=== PATIENT | female | born 1945 | race Two or more races ===

== ENCOUNTER 2023-09-10 13:08 | Emergency (ER) | payer MEDICARE, SELFPAY ==
[2023-09-10 13:23] VITALS: BP 178/65; PULSE 61; RESP 18; TEMP 36.9; O2SAT 96; BMI 28.3
--- NOTE | 2023-09-10 13:27 | XR_ITS ---
The [address] [address] Patient Name: BERNARD PONCE MRN: [id number] date: 1945 Sex: F Assigned Patient Location: ER Current Patient Location: ER Accession/Order Number: [id number] Exam Date: 09/10/2023 13:36 Report Date: 09/10/2023 13:53 At the request of: WILMA FERNANDES Procedure: XR chest 2V EXAM: XR chest 2V HISTORY: pain COMPARISON: None. TECHNIQUE: PA and lateral views of the chest. FINDINGS: The cardiomediastinal silhouette is normal. No focal consolidation is identified. There is no pneumothorax. No pleural effusion is noted. The osseous structures are intact. XR/XR chest 2V IMPRESSION: No acute cardiopulmonary process. Electronically authenticated by: ALYSSA BANKS Date: 09/10/2023 13:53
--- NOTE | 2023-09-10 13:27 | XR_ITS ---
The [address] [address] Patient Name: BERNARD PONCE MRN: [id number] date: 1945 Sex: F Assigned Patient Location: ER Current Patient Location: ER Accession/Order Number: [id number] Exam Date: 09/10/2023 13:36 Report Date: 09/10/2023 14:09 At the request of: WILMA FERNANDES Procedure: XR elbow LT min 3V EXAM: XR elbow LT min 3V HISTORY: pain COMPARISON: None. TECHNIQUE: AP, oblique, lateral radiographs of the elbow labeled left FINDINGS: Osteophyte at the ulna. Demineralization. No acute fracture or dislocation. No elbow joint effusion. XR/XR elbow LT min 3V IMPRESSION: 1. No acute osseous abnormality. 2. Demineralization and mild degenerative change. Electronically authenticated by: CECELIA OROZCO Date: 09/10/2023 14:09
[2023-09-10 14:48] VITALS: BP 169/65; PULSE 72; O2SAT 97
--- NOTE | 2023-09-10 15:23 | ED.GENADUL1 ---
Documented by User: Lee Ann Lynch 09/10/23 16:01 HPI - General Adult General Chief complaint: Extremity Injury, Upper Stated complaint: FALL/ UPPER EXTREMITY INJURY Time Seen by Provider: 09/10/23 15:23 Source: patient Mode of arrival: walk-in Limitations: no limitations History of Present Illness HPI narrative: 77 year old female presents to the ED for pain to her left elbow and left anterior lower chest s/p fall yesterday. Reports falling when going down steps. She fell down the last step. She did hit her head. Denies LOC, vision changes, weakness, dizziness, N/V. Denies SOB, abd pain. Denies pain to her neck and back. Rates her pain 4/10 at this time. Her elbow discomfort is with palpation. Her chest wall discomfort is with certain movements and deep inspiration. She took Tylenol yesterday for her discomfort. She does not want anything for pain here today. Related Data Allergies Allergy/AdvReac Type Severity Reaction Status Date / Time ampicillin AdvReac Intermediate Verified 09/10/23 13:23 Review of Systems ROS Constitutional Denies: fever or chills Eyes Denies: change in vision, blurry vision or light sensitivity Ears, nose, mouth, and throat Denies: neck pain Cardiovascular Denies: chest pain Respiratory Denies: shortness of breath Gastrointestinal Denies: abdominal pain, nausea or vomiting Musculoskeletal Reports: extremity pain; Denies: back pain or neck pain Integumentary/Breast Denies: rash or changes in skin color Neurological Reports: headache; Denies: numbness in extremities, weakness in extremities, lack of coordination, dizziness, confusion or slurred speech PFSH PFSH Social History Smoking status: Never smoker Exam Constitutional Vital Signs, click to edit/add: Last Vital Signs Temp 98.5 F 09/10/23 13:23 Pulse 72 09/10/23 14:48 Resp 18 09/10/23 13:23 BP 169/65 H 09/10/23 14:48 Pulse Ox 97 09/10/23 14:48 Common normals: no apparent distress and oriented x3 General appearance: cooperative [facility] Common normals: normocephalic and head/scalp atraumatic (Mild tenderness to left scalp. No palpable hematoma. No bony instability. ) Face and sinus: normal facial exam Nose: external nose normal External ear: external ears normal Eye Common normals: PERRL, EOMs intact bilaterally, conjunctivae normal and no scleral icterus Neck & C-Spine Common normals: supple General: normal visual inspection and trachea midline Cervical spine: cervical ROM normal; no pain with cervical ROM, no cervical spine tenderness and no paracervical muscle tenderness Chest Common normals: inspection of chest normal (No bruising, abrasions, erythema, or wounds noted to left chest or abdomen.) and palpation of chest normal (Tenderness to left lower anterior chest wall. ) Respiratory Common normals: normal respiratory effort Effort & inspection: able to speak in complete sentences and symmetric chest movement Auscultation: clear to auscultation bilaterally Cardio Common normals: regular rate and regular rhythm Peripheral pulses: radial pulses present Back & Pelvis Thoracic spine/upper back: normal to inspection; no thoracic spinal tenderness and no paraspinal muscle tenderness Lumbar spine/lower back: normal to inspection; no lumbar spinal tenderness and no paraspinal muscle tenderness Extremity Left upper extremity: shoulder joint Left shoulder joint: ROM (Full ROM) and elbow joint Left elbow: inspection (Minimal swelling posterior elbow. No deformity, erythema, bruising, wound.), palpation (Tenderness to posterior elbow with light touch.) and ROM (Full ROM to left elbow, wrist, hand.) Neuro Common normals: oriented x3 and CN's II-XII intact bilaterally Sensorium/orientation: awake and alert Speech: speech normal Gait (neuro): normal gait Course Vital Signs Vital signs: Vital Signs Temperature 98.5 F 09/10/23 13:23 Pulse Rate 61 09/10/23 13:23 Respiratory Rate 18 09/10/23 13:23 Blood Pressure 178/65 H 09/10/23 13:23 Pulse Oximetry 96 09/10/23 13:23 Temperature 98.5 F 09/10/23 13:23 Pulse Rate 72 09/10/23 14:48 Respiratory Rate 18 09/10/23 13:23 Blood Pressure 169/65 H 09/10/23 14:48 Pulse Oximetry 97 09/10/23 14:48 Medical Decision Making MDM Narrative Medical decision making narrative: Chest and left elbow x-rays were negative for acute findings. Findings were discussed with the patient. She prefers to take Tylenol for pain. She declined a muscle relaxer and stronger pain medication. An wayne wrap was applied to the left elbow. The application was checked and was appropriate; the LUE remained NVI. Follow up with pcp for a recheck, further evaluation and treatment. Return precautions were discussed. Medical Records Medical records reviewed: Yes I reviewed the patient's medical records Imaging Data Chest x-ray: Attestation: I have reviewed the pertinent imaging results. Radiologist's impression: At the request of: WILMA REYES Procedure: XR chest 2V EXAM: XR chest 2V HISTORY: pain COMPARISON: None. TECHNIQUE: PA and lateral views of the chest. FINDINGS: The cardiomediastinal silhouette is normal. No focal consolidation is identified. There is no pneumothorax. No pleural effusion is noted. The osseous structures are intact. XR/XR chest 2V IMPRESSION: No acute cardiopulmonary process. Electronically authenticated by: ALYSSA BANKS Date: 09/10/2023 13:53 XR left elbow: Attestation: I have reviewed the pertinent imaging results. Radiologist's impression: At the request of: WILMA REYES Procedure: XR elbow LT min 3V EXAM: XR elbow LT min 3V HISTORY: pain COMPARISON: None. TECHNIQUE: AP, oblique, lateral radiographs of the elbow labeled left FINDINGS: Osteophyte at the ulna. Demineralization. No acute fracture or dislocation. No elbow joint effusion. XR/XR elbow LT min 3V IMPRESSION: 1. No acute osseous abnormality. 2. Demineralization and mild degenerative change. Electronically authenticated by: CECELIA OROZCO Date: 09/10/2023 14:09 Discharge Plan Discharge Chief Complaint: Extremity Injury, Upper Clinical Impression: Chest wall pain, Head injury, Contusion of elbow, left Patient Disposition: Home, Self-Care Time of Disposition Decision: 15:35 Condition: Good Mode of Transportation: Private Vehicle Instructions: Head Injury (DC), Contusion in Adults (ED), Chest Wall Pain (ED) Additional Instructions: Return to the ER for new or worsening symptoms. Stand Alone Forms: Portal Instructions Referrals: Pamela Moore NP [Primary Care Provider] - As soon as possible Discharge Date/Time: 09/10/23 15:36 Documented by User: Wilma Reyes MD 09/10/23 19:34 HPI - General Adult General Chief complaint: Extremity Injury, Upper Stated complaint: FALL/ UPPER EXTREMITY INJURY Time Seen by Provider: 09/10/23 15:23 Related Data Allergies Allergy/AdvReac Type Severity Reaction Status Date / Time ampicillin AdvReac Intermediate Verified 09/10/23 13:23 PFSH PFSH Social History Smoking status: Never smoker Exam Constitutional Vital Signs, click to edit/add: Last Vital Signs Temp 98.5 F 09/10/23 13:23 Pulse 72 09/10/23 14:48 Resp 18 09/10/23 13:23 BP 169/65 H 09/10/23 14:48 Pulse Ox 97 09/10/23 14:48 Course Vital Signs Vital signs: Vital Signs Temperature 98.5 F 09/10/23 13:23 Pulse Rate 61 09/10/23 13:23 Respiratory Rate 18 09/10/23 13:23 Blood Pressure 178/65 H 09/10/23 13:23 Pulse Oximetry 96 09/10/23 13:23 Temperature 98.5 F 09/10/23 13:23 Pulse Rate 72 09/10/23 14:48 Respiratory Rate 18 09/10/23 13:23 Blood Pressure 169/65 H 09/10/23 14:48 Pulse Oximetry 97 09/10/23 14:48 Medical Decision Making MDM Narrative Medical decision making narrative: Chest and left elbow x-rays were negative for acute findings. Findings were discussed with the patient. She prefers to take Tylenol for pain. She declined a muscle relaxer and stronger pain medication. An wayne wrap was applied to the left elbow. The application was checked and was appropriate; the LUE remained NVI. Follow up with pcp for a recheck, further evaluation and treatment. Return precautions were discussed. I, Dr Reyes, have reviewed the above progress note and course of action in the ER; agree with the above. I have personally seen and evaluated this patient, gone over history and physical, and discussed disposition and treatment plan with the patient. Discharge Plan Discharge Chief Complaint: Extremity Injury, Upper Clinical Impression: Chest wall pain, Head injury, Contusion of elbow, left Patient Disposition: Home, Self-Care Time of Disposition Decision: :35 Condition: Good Mode of Transportation: Private Vehicle Instructions: Head Injury (DC), Contusion in Adults (ED), Chest Wall Pain (ED) Additional Instructions: Return to the ER for new or worsening symptoms. Stand Alone Forms: Portal Instructions Referrals: Pamela Moore NP [Primary Care Provider] - As soon as possible Discharge Date/Time: 09/10/23 15:36
== END 2023-09-10 15:36 | disposition home or self-care (01) ==
PROVIDERS: Emergency Provider Emergency Medicine; PCP Nurse Practitioner
DX: S50.02XA Contusion of left elbow, initial encounter (principal); R07.89 Other chest pain; S09.90XA Unspecified injury of head, initial encounter; W10.9XXA Fall (on) (from) unspecified stairs and steps, initial encounter
CPT/HCPCS: 71046; 73080; 99284

== ENCOUNTER 2023-09-17 11:08 | Outpatient (OUT) | payer MEDICARE, SELFPAY ==
--- NOTE | 2023-09-17 11:20 | XR_ITS ---
The [address] [address] Patient Name: BERNARD PONCE MRN: [id number] date: 1945 Sex: F Assigned Patient Location: [facility] Current Patient Location: Accession/Order Number: [id number] Exam Date: 09/17/2023 11:30 Report Date: 09/19/2023 06:34 At the request of: LOS RICE Procedure: XR ribs LT 2V EXAMINATION: XR ribs LT 2V HISTORY: rib pain on left side R07.81 ; fell 09/09/2023 COMPARISON: XR chest 09/10/2023 FINDINGS: RIBS: Normal. No significant arthropathy or acute abnormality. LUNGS: No appreciable pneumothorax or pleural thickening. OTHER: Negative. XR/XR ribs LT 2V IMPRESSION: 1. No appreciable rib fracture. 2. No acute cardiopulmonary process. Electronically authenticated by: BRAYDEN LARA Date: 09/19/2023 06:34
== END 2023-09-17 11:09 | disposition home or self-care (01) ==
LOC: RAD 11:11
PROVIDERS: PCP Nurse Practitioner; Visit Provider Nurse Practitioner
DX: R07.81 Pleurodynia (principal)
CPT/HCPCS: 71100

== ENCOUNTER 2023-11-07 09:40 | Outpatient (OUT) | payer MEDICARE, SELFPAY ==
--- OUTSIDE RECORDS SUMMARY | 2023-11-07 09:48 | XMS_ITS | CCD ---
Author Name Unknown Address [address] [place] [address] Organization [facility] Care Team Providers Care Group Leader Wafer Polishing Name Role Phone AICHHOLZ, AIR DRIER PAMELA Admitting Unavailable AICHHOLZ, AIR DRIER PAMELA Attending Unavailable AICHHOLZ, AIR DRIER PAMELA Primary Care Unavailable AICHHOLZ, AIR DRIER PAMELA Consulting Unavailable AICHHOLZ, AIR DRIER PAMELA Admitting Unavailable AICHHOLZ, AIR DRIER PAMELA Attending Unavailable AICHHOLZ, AIR DRIER PAMELA Primary Care Unavailable AICHHOLZ, AIR DRIER PAMELA Consulting Unavailable AICHHOLZ, AIR DRIER PAMELA Admitting Unavailable AICHHOLZ, AIR DRIER PAMELA Attending Unavailable AICHHOLZ, AIR DRIER PAMELA Primary Care Unavailable AICHHOLZ, AIR DRIER PAMELA Consulting Unavailable AICHHOLZ, AIR DRIER PAMELA Admitting Unavailable AICHHOLZ, AIR DRIER PAMELA Attending Unavailable AICHHOLZ, AIR DRIER PAMELA Primary Care Unavailable AICHHOLZ, AIR DRIER PAMELA Consulting Unavailable AICHHOLZ, AIR DRIER PAMELA Admitting Unavailable AICHHOLZ, AIR DRIER PAMELA Attending Unavailable AICHHOLZ, AIR DRIER PAMELA Primary Care Unavailable AICHHOLZ, AIR DRIER PAMELA Consulting Unavailable AICHHOLZ, AIR DRIER PAMELA Admitting Unavailable AICHHOLZ, AIR DRIER PAMELA Attending Unavailable AICHHOLZ, AIR DRIER PAMELA Primary Care Unavailable AICHHOLZ, AIR DRIER PAMELA Consulting Unavailable AICHHOLZ, AIR DRIER PAMELA Admitting Unavailable AICHHOLZ, AIR DRIER PAMELA Attending Unavailable AICHHOLZ, AIR DRIER PAMELA Primary Care Unavailable AICHHOLZ, AIR DRIER PAMELA Consulting Unavailable JORGE GONCALVES Primary Care Unavailable Tab Ibarra Admitting Unavail able Tab Ibarra Attending Unavail Jorge Quijano MD Primary Care Provider AICHHOLZ, PAMELA Attending Unavailable PAMELA MOORE Attending Unavailable PAMELA MOORE Referring Unavailable Allergies Allergy Classification Reported Allergen(s) Allergy Type Date of Onset Reaction(s) Facility (1 source) Ampicillin Drug Allergy [facility] (3 sources) A[facility] Drug All[facility] Medications Current Medications Medication Drug Class(es) Dates Sig (Normalized) Sig (Original) [id number] 200 actuat albuterol 0.09 mg/actuat metered dose inhaler (3 sources) beta2-Adrenergic Agonist take 2 puff(s) by inhalation every four hours for wheezing albuterol HFA 90 mcg/act inhaler Inhale 2 puffs every 4 (four) hours if needed for wheezing or shortness of breath 0 Active alendronic acid 70 mg oral tablet (3 sources) Bisphosphonate alendronate (Fosamax) 70 MG tablet Take 70 mg by mouth every 7 (seven) days. 0 Active atorvastatin 20 mg oral tablet (3 sources) HMG-CoA Reductase Inhibitor take 1 tablet by mouth in the morning atorvastatin (Lipitor) 20 MG tablet Take 20 mg by mouth in the morning. 0 Active benzonatate 100 mg oral capsule (3 sources) Non-narcotic Antitussive take 1 capsule by mouth three times daily as needed benzonatate (Tessalon) 100 MG capsule Take 100 mg by mouth 3 (three) times a day as needed. 0 Active cholecalciferol 0.125 mg oral capsule (3 sources) Vitamin D cholecalciferol (Vitamin D-3) 125 MCG (5000 UT) capsule Vitamin D3 0 Active docosahexaenoic acid 120 mg / eicosapentaenoic acid 180 mg oral capsule (3 sources) take 1 capsule by mouth once daily omega-3 (fish oil) 1000 MG capsule Take 1 capsule by mouth 1 (one) time each day at the same time. 0 Active fluticasone propionate 0.05 mg/actuat metered dose nasal spray (3 sources) Corticosteroid Start: 05-10-2019 take 1 spray(s) nasal route in the morning fluticasone (Flonase) 50 MCG/ACT nasal spray Administer 1 spray into each nostril in the morning. 0 05/10/2019 Active furosemide 20 mg oral tablet (3 sources) Loop Diuretic furosemide (Lasi x) 20 MG tablet Take 20 mg by mouth if needed (prn). 0 Active levothyroxine sodium 0.05 mg oral tablet (3 sources) l-Thyroxine take 1 tablet by mouth before mealtime levothyroxine (Synthroid) 50 MCG tablet Take 50 mcg by mouth in the morning. Take before meals. 0 Active loratadine 10 mg oral tablet (3 sources) loratadine (Claritin) 10 MG tablet Take 10 mg by mouth if needed for allergies 0 Active meclizine hydrochloride 25 mg oral tablet (3 sources) Antiemetic take 1 tablet by mouth four times daily as needed for dizziness meclizine (Antivert) 25 MG tablet Take 1 tablet by mouth 4 (four) times a day as needed for dizziness 0 Active Multiple Vitamin (MULTIVITAMIN ADULT PO) (3 sources) Multiple Vitamin (MULTIVITAMIN ADULT PO) Multivitamin 0 Active papaya allergenic extract (3 sources) Non-Standardized Food Allergenic Extract Papaya 100 MG tablet Papaya 0 Active Problems Active Problems Problem Classification Problem Date Documented Date Episodic/Chronic Diabetes mellitus without complication (6 sources) Prediabetes; Translations: [Prediabetes] Onset: 11-13-2022 11-05-2023 Episodic Disorders of lipid metabolism (10 sources) Hyperlipidemia, unspecified; Translations: [Hyperlipidemia] Onset: 05-08-2022 Chronic Diverticulosis and diverticulitis (3 sources) Diverticulum of large intestine without hemorrhage; Translations: [Diverticulosis of large intestine without perforation or abscess without bleeding] Onset: 11-05-2023 11-05-2023 Chronic Esophageal disorders (8 sources) Laryngopharyngeal reflux; Translations: [Gastro-esophageal reflux disease without esophagitis] Onset: 01-31-2023 01-31-2023 Chronic Nutritional deficiencies (6 sources) Vitamin D deficiency, unspecified; Translations: [Vitamin D deficiency] Onset: 11-13-2022 11-05-2023 Chronic Osteoarthritis (9 sources) Arthritis of right knee; Translations: [Unilateral primary osteoarthritis, right knee] Onset: 01-31-2023 01-31-2023 Chronic Osteoporosis (5 sources) Osteoporosis; Translations: [Age-related osteoporosis without current pathological fracture] Onset: 11-05-2023 11-05-2023 Chronic Other connective tissue disease (3 sources) Triggering of digit; Translations: [Trigger finger, right ring finger] Onset: 11-05-2023 4 Episodic Other ear and sense organ disorders (3 sources) Chronic non-infective otitis externa; Translations: [Other otitis externa, bilateral] Onset: 01-31-2023 01-31-2023 Chronic Other ear and sense organ disorders (3 sources) Hearing loss; Translations: [Unspecified hearing loss, unspecified ear] Onset: 01-31-2023 01-31-2023 Chronic Other ear and sense organ disorders (3 sources) Sensorineural hearing loss, bilateral; Translations: [Sensorineural hearing loss, bilateral] Onset: 01-31-2023 01-31-2023 Chronic Other lower respiratory disease (3 sources) Cough; Translations: [Cough in adult] Onset: 11-05-2023 11-05-2023 Episodic Other non-traumatic joint disorders (4 sources) Chronic pain of left upper limb; Translations: [Pain in left shoulder] Onset: 11-05-2023 11-05-2023 Episodic Other nutritional; endocrine; and metabolic disorders (1 source) Obesity; Translations: [Obesity, unspecified] Onset: 09-17-2023 09-17-2023 Chronic Other nutritional; endocrine; and metabolic disorders (4 sources) Body mass index 30+ - obesity; Translations: [Body mass index (BMI) 30.0-30.9, adult] Onset: 11-05-2023 11-05-2023 Chronic Other screening for suspected conditions (not mental disorders or infectious disease) (12 sources) Other specified abnormal findings of blood chemistry; Translations: [Other abnormal blood chemistry] Onset: 02-13-2022 Episodic Other upper respiratory disease (3 sources) Chronic laryngitis; Translations: [Chronic laryngitis] Onset: 01-31-2023 01-31-2023 Chronic Other upper respiratory disease (3 sources) Allergic rhinitis; Translations: [Allergic rhinitis, unspecified] Onset: 11-05-2023 11-05-2023 Chronic Residual codes; unclassified (3 sources) Insomnia; Translations: [Insomnia, unspecified] Onset: 11-05-2023 11-05-2023 Episodic Spondylosis; intervertebral disc disorders; other back problems (3 sources) Degeneration of cervical intervertebral disc; Translations: [Other cervical disc degeneration, unspecified cervical region] Onset: 11-05-2023 11-05-2023 Chronic Thyroid disorders (9 sources) Hypothyroidism, unspecified; Translations: [Acquired hypothyroidism] Onset: 12-16-2022 Chronic Past or Other Problems Problem Classification Problem Date Documented Da te Episodic/Chronic Immunizations and screening for infectious disease (1 source) Encounter for screening for other viral diseases; Translations: [ENC SCREENING FOR OTH VIRAL DZ] Onset: 05-09-2022 Episodic Otitis media and related conditions (3 sources) Dysfunction of left eustachian tube; Translations: [Unspecified Eustachian tube disorder, left ear] Onset: 01-31-2023 01-31-2023 Episodic Results Test Name Value Interpretation Reference Range Facil ity MG MAMM SCREEN 3D DAVID CADon 01-03-2023 MG MAMM SCREEN 3D DAVID CAD Patient: BERNARD PONCE Exam Date: 01/03/2023 : 1945 Gender:F Ordering : [facility] Admission #: [id number] Family : Order #: [id number] CLICK HERE TO VIEW EXAM RADIOLOGY REPORT PROCEDURE: MAMMOGRAM SCREENING 3D BILATERAL CAD COMPARISON: MG MAMM SCREEN DAVID W CAD, 09/25/2020. MG MAMM SCREEN 3D DAVID CAD, 09/27/2021. INDICATIONS: Screening mammography Calculator Name NCI Breast Cancer Risk Assessment Tool 5 Year Breast Cancer Risk 1.00% Lifetime Breast Cancer Risk 2.30% Personal Breast Cancer No Personal Ovarian Cancer No Treatments None Family Cancers Aunt-maternal with breast cancer at age 60. LOCATION: [facility] BREAST COMPOSITION: Scattered areas fibroglandular density. FINDINGS: DIAGNOSTIC CATEGORY 1--NEGATIVE. NO CHANGE FROM COMPARISON ASSESSMENT. Scattered benign-appearing calcifications are present. Scattered benign-appearing lymph nodes are present. RIGHT BREAST: No significant suspicious finding. LEFT BREAST: No significant suspicious finding. RECOMMENDATIONS: ROUTINE MAMMOGRAM AND CLINICAL EVALUATION IN 12 MONTHS. PLEASE NOTE: A NORMAL MAMMOGRAM DOES NOT EXCLUDE THE POSSIBILITY OF BREAST CANCER. A CLINICALLY SUSPICIOUS PALPABLE LUMP SHOULD BE BIOPSIED. Dictated by: Jermaine Rosenberg MD on 01/06/2023 at 09:55 Approved by: Jermaine Rosenberg MD on 01/06/2023 at 09:57 Normal [facility] FREE T3on 12-16-2022 FREE T3 2.70 pg/mlL Normal 2.18-3.98 [facility] Comment on above: Performed By: #### T SH, FT3 #### [facility] [address] [place] [address] Dr. Glenny Sneed FREE T4on 12-16-2022 Free T4 [Mass/Vol] 0.92 ng/dL Normal 0.76-1.46 [facility] Comment on above: Performed By: #### F T4 #### [facility] [address] [place] [address] Dr. Glenny Sneed TSHon 12-16-2022 TSH 3.444 uIU/mL Normal 0.358-3.740 [facility] Comment on above: Performed By: #### T SH, FT3 #### [facility] [address] [place] [address] Dr. Glenny Sneed CBC AUTO DIFFon 11-07-2022 BASO # 0.1 103/ul Normal 0.0-0.1 [facility] Comment on above: Performed By: #### T SH, FT3 #### [facility] [address] [place] [address] Dr. Glenny Sneed Basophils/100 WBC (Bld) 1.2 % Normal 0.2-2.0 [facility] Comment on above: Performed By: #### T SH, FT3 #### [facility] [address] [place] [address] Dr. Glenny Sneed EO # 0.2 103/ul Normal 0.0-0.7 [facility] Comment on above: Performed By: #### T SH, FT3 #### [facility] [address] [place] [address] Dr. Glenny Sneed Eosinophils/100 WBC (Bld) 2.8 % Normal 0.9-7.0 [facility] Comment on above: Performed By: #### T SH, FT3 #### [facility] [address] [place] [address] Dr. Glenny Sneed Erythrocyte distribution width (RBC) [Ratio] 13.5 % Normal 11.0-15.0 [facility] Comment on above: Performed By: #### T SH, FT3 #### [facility] [address] [place] [address] Dr. Glenny Sneed Hematocrit (Bld) [Volume fraction] 40.3 % Normal 36.0-48.0 [facility] Comment on above: Performed By: #### T SH, FT3 #### [facility] [address] [place] [address] Dr. Glenny Sneed Hemoglobin (Bld) [Mass/Vol] 12.9 g/dL Normal 12.0-16.0 [facility] Comment on above: Performed By: #### T SH, FT3 #### [facility] [address] [place] [address] Dr. Glenny Sneed IG # 0.01 10e3/ul Normal 0.00-0.03 [facility] Comment on above: Performed By: #### T SH, FT3 #### [facility] [address] [place] [address] Dr. Glenny Sneed IG % 0.2 % Normal 0.0-0.5 [facility] Comment on above: Performed By: #### T , FT3 #### [facility] [address] [place] [address] Dr. Glenny Sneed LYMPH # 2.5 103/ul Normal 1.2-3.8 [facility] Comment on above: Performed By: #### T , FT3 #### [facility] [address] [place] [address] Dr. Glenny Sneed Lymphocytes/100 WBC (Bld) 38.2 % Normal 20.5-60.0 [facility] Comment on above: Performed By: #### T , FT3 #### [facility] [address] [place] [address] Dr. Glenny Sneed MANUAL DIFF REQ NO Normal [facility] Comment on above: Performed By: #### T , FT3 #### [facility] [address] [place] [address] Dr. Glenny Sneed MCH (RBC) [Entitic mass] 27.2 pg Normal 26.7-34.0 [facility] Comment on above: Performed By: #### T SH, FT3 #### [facility] [address] [place] [address] Dr. Glenny Sneed MCHC (RBC) [Mass/Vol] 32.0 g/dL Normal 29.9-35.2 [facility] Comment on above: Performed By: #### T SH, FT3 #### [facility] [address] [place] [address] Dr. Glenny Sneed MCV (RBC) [Entitic vol] 84.8 fL Normal 81.0-99.0 [facility] Comment on above: Performed By: #### T SH, FT3 #### [facility] [address] [place] [address] Dr. Glenny Sneed MONO # 0.6 103/ul Normal 0.3-0.8 [facility] Comment on above: Performed By: #### T SH, FT3 #### [facility] [address] [place] [address] Dr. Glenny Sneed Monocytes/100 WBC (Bld) 8.5 % Normal 1.7-12.0 [facility] Comment on above: Performed By: #### T SH, FT3 #### [facility] [address] [place] [address] Dr. Glenny Sneed NEUT # 3.2 103/ul Normal 1.4-6.5 [facility] Comment on above: Performed By: #### T SH, FT3 #### [facility] [address] [place] [address] Dr. Glenny Sneed Neutrophils/100 WBC (Bld) 49.1 % Normal 43.0-75.0 [facility] Comment on above: Performed By: #### T SH, FT3 #### [facility] [address] [place] [address] Dr. Glenny Sneed Platelet mean volume (Bld) [Entitic vol] 10.2 fL Normal 9.5-13.5 [facility] Comment on above: Performed By: #### T SH, FT3 #### [facility] [address] [place] [address] Dr. Glenny Sneed PLT 350 103/ul Normal 150-450 [facility] Comment on above: Performed By: #### T SH, FT3 #### [facility] [address] [place] [address] Dr. Glenny Sneed RBC 4.75 106/ul Normal 4.20-5.40 [facility] Comment on above: Performed By: #### T SH, FT3 #### [facility] [address] [place] [address] Dr. Glenny Sneed WBC 6.5 103/ul Normal 4.0-11.0 [facility] Comment on above: Performed By: #### T SH, FT3 #### [facility] [address] [place] [address] Dr. Glenny Sneed FREE T4on 11-07-2022 Free T4 [Mass/Vol] 1.15 ng/dL Normal 0.76-1.46 [facility] Comment on above: Performed By: #### F T4, VITAD #### [facility] [address] [place] [address] Dr. Glenny Sneed GLYCOHEMOGLOBIN A1Con 2022 ADA RECOMMENDATION SEE BELOW Normal [facility] Comment on above: Result Comment: ADA RECOMMENDED LIMIT 4.0 - 6.0 ADA THERAPEUTIC TARGET < 7.0 ACTION SUGGESTED > 7.0 Performed By: #### A 1C #### [facility] [address] [place] [address] Dr. Glenny Sneed Glucose [Mass/Vol] 120 mg/dL Normal [facility] Comment on above: Performed By: #### A 1C #### [facility] [address] [place] [address] Dr. Glenny Sneed HbA1c (Bld) [Mass fraction] 5.8 % Normal 4.5-6.2 [facility] Comment on above: Performed By: #### A 1C #### [facility] [address] [place] [address] Dr. Glenny Sneed LIPID PROFILEon 11-07-2022 CHOL-HDL RATIO NORM SEE BELOW Normal [facility] Comment on above: Result Comment: 3.3 - 4.4 LOW RISK 4.4 - 7.1 AVERAGE RISK 7.1 - 11.0 MODERATE RISK >11.0 HIGH RISK Performed By: #### L IPID, CMP, TSH #### [facility] [address] [address] [address] Glenny Sneed Cholesterol [Mass/Vol] 185 mg/dL Normal <=200 [facility] Comment on above: Performed By: #### L IPID, CMP, TSH #### [facility] [address] [address] [address] Glenny Sneed Cholesterol in HDL [Mass/Vol] 63 mg/dL Critically high 40-60 [facility] Comment on above: Performed By: #### L IPID, CMP, TSH #### [facility] [address] [place] [address] Dr. Glenny Sneed Cholesterol in LDL [Mass/Vol] 87.6 mg/dL Normal [facility] Comment on above: Performed By: #### L IPID, CMP, TSH #### [facility] [address] [place] [address] Dr. Glenny Sneed Cholesterol.total/Cho lesterol in HDL [Mass ratio] 2.9 {ratio} Normal [facility] Comment on above: Performed By: #### L IPID, CMP, TSH #### [facility] [address] [place] [address] Dr. Glenny Sneed HDL NORMAL > or = 60 mg/dl - LOW CARDIOVASCULAR RISK <40 mg/dl - HIGH CARDIOVASCULAR RISK Normal [facility] Comment on above: Performed By: #### L IPID, CMP, TSH #### [facility] [address] [place] [address] Dr. Glenny Sneed LDL CALC NORMAL SEE BELOW Normal [facility] Comment on above: Result Comment: <100 mg/dl OPTIMAL 100 - 129 mg/dl NEAR OR ABOVE OPTIMAL 130 - 159 mg/dl BORDERLINE HIGH 160 - 189 mg/dl HIGH >190 mg/dl VERY HIGH Performed By: #### L IPID, CMP, TSH #### [facility] [address] [place] [address] Dr. Glenny Sneed Triglyceride [Mass/Vol] 172 mg/dL Critically high <=150 [facility] Comment on above: Performed By: #### L IPID, CMP, TSH #### [facility] [address] [address] [address] Glenny Sneed VLDL CALC 34.4 mg/dL Normal [facility] Comment on above: Performed By: #### L IPID, CMP, TSH #### [facility] [address] [place] [address] Dr. Glenny Sneed PROF 14(COMP METB)on 023 Albumin [Mass/Vol] 4.1 g/dL Normal 3.4-5.0 [facility] Comment on above: Performed By: #### L IPID, CMP, TSH #### [facility] [address] [place] [address] Dr. Glenny Sneed Albumin/Globulin [Mass ratio] 1.0 {ratio} Normal [facility] Comment on above: Performed By: #### L IPID, CMP, TSH #### [facility] [address] [place] [address] Dr. Glenny Sneed ALP [Catalytic activity/Vol] 77 U/L Normal 46-116 [facility] Comment on above: Performed By: #### L IPID, CMP, TSH #### [facility] [address] [place] [address] Dr. Glenny Sneed ALT [Catalytic activity/Vol] 33 U/L Normal 14-59 [facility] Comment on above: Performed By: #### L IPID, CMP, TSH #### [facility] [address] [address] [address] Glenny Sneed Anion gap [Moles/Vol] 13.1 mmol/L Normal [facility] Comment on above: Performed By: #### L IPID, CMP, TSH #### [facility] [address] [place] [address] Dr. Glenny Sneed AST [Catalytic activity/Vol] 22 U/L Normal 15-37 [facility] Comment on above: Performed By: #### L IPID, CMP, TSH #### [facility] [address] [place] [address] Dr. Glenny Sneed Bilirubin [Mass/Vol] 0.7 mg/dL Normal 0.2-1.0 [facility] Comment on above: Performed By: #### L IPID, CMP, TSH #### [facility] [address] [place] [address] Dr. Glenny Sneed Calcium [Mass/Vol] 10.0 mg/dL Normal 8.5-10.1 [facility] Comment on above: Performed By: #### L IPID, CMP, TSH #### [facility] [address] [address] [address] Glenny Sneed Chloride [Moles/Vol] 102 mmol/L Normal 98-107 [facility] Comment on above: Performed By: #### L IPID, CMP, TSH #### [facility] [address] [place] [address] Dr. Glenny Sneed CO2 [Moles/Vol] 29.9 mmol/L Normal 21.0-32.0 [facility] Comment on above: Performed By: #### L IPID, CMP, TSH #### [facility] [address] [place] [address] Dr. Glenny Sneed Creatinine [Mass/Vol] 0.66 mg/dL Normal 0.55-1.02 [facility] Comment on above: Performed By: #### L IPID CMP, TSH #### [facility] [address] [place] [address] Dr. Glenny Sneed EGFR-AF ICELANDIC >60 Normal >=60 [facility] Comment on above: Performed By: #### L IPID, CMP, TSH #### [facility] [address] [place] [address] Dr. Glenny Sneed EGFR-NON AF ICELANDIC >60 Normal >=60 [facility] Comment on above: Performed By: #### L IPID, CMP, TSH #### [facility] [address] [place] [address] Dr. Glenny Sneed Globulin (S) [Mass/Vol] 4.0 g/dL Normal [facility] Comment on above: Performed By: #### L IPID, CMP, TSH #### [facility] [address] [address] [address] Glenny Sneed Glucose [Mass/Vol] 106 mg/dL Normal 74-106 [facility] Comment on above: Performed By: #### L IPID, CMP, TSH #### [facility] [address] [place] [address] Dr. Glenny Sneed Potassium [Moles/Vol] 4.0 mmol/L Normal 3.5-5.1 [facility] Comment on above: Performed By: #### L IPID, CMP, TSH #### [facility] [address] [place] [address] Dr. Glenny Sneed Protein [Mass/Vol] 8.1 g/dL Normal 6.4-8.2 [facility] Comment on above: Performed By: #### L IPID, CMP, TSH #### [facility] [address] [place] [address] Dr. Glenny Sneed Sodium [Moles/Vol] 141 mmol/L Normal 136-145 [facility] Comment on above: Performed By: #### L IPID, CMP, TSH #### [facility] [address] [place] [address] Dr. Glenny Sneed Urea nitrogen [Mass/Vol] 9.0 mg/dL Normal 7.0-18.0 [facility] Comment on above: Performed By: #### L IPID, CMP, TSH #### [facility] [address] [place] [address] Dr. Glenny Sneed Urea nitrogen/Creatinine [Mass ratio] 13.6 mg/mg Normal [facility] Comment on above: Performed By: #### L IPID, CMP, TSH #### [facility] [address] [place] [address] Dr. Glenny Sneed TSHon 11-07-2022 TSH 2.008 uIU/mL Normal 0.358-3.740 [facility] Comment on above: Performed By: #### L IPID, CMP, TSH #### [facility] [address] [place] [address] Dr. Glenny Sneed UA RANDOM W/MICROSCOPICon 02 -16-2023 BACTERIA NONE SEEN Normal NONE SEEN [facility] Comment on above: Performed By: #### U AMIC #### [facility] [address] [address] [address] Glenny Sneed Bilirubin Ql (U) Negative Normal NEGATIVE The [facility] Comment on above: Performed By: #### U AMIC #### [facility] [address] [place] [address] Dr. Glenny Sneed CAST NONE SEEN Normal NONE SEEN [facility] Comment on above: Performed By: #### U AMIC #### [facility] [address] [address] [address] Glenny Sneed Clarity (U) CLEAR Normal CLEAR [facility] Comment on above: Performed By: #### U AMIC #### [facility] [address] [place] [address] Dr. Glenny Sneed Color (U) LT. YELLOW Normal YELLOW [facility] Comment on above: Performed By: #### U AMIC #### [facility] [address] [place] [address] Dr. Glenny Sneed Crystals LM Nom (Urine sed) NONE SEEN Normal NONE SEEN [facility] Comment on above: Performed By: #### U AMIC #### [facility] [address] [place] [address] Dr. Glenny Sneed Epithelial cells LM Ql (Urine sed) NONE SEEN Normal NONE SEEN /RARE [facility] Comment on above: Performed By: #### U AMIC #### [facility] [address] [place] [address] Dr. Glenny Sneed Glucose Ql (U) Negative Normal NEGATIVE [facility] Comment on above: Performed By: #### U AMIC #### [facility] [address] [place] [address] Dr. Glenny Sneed Hemoglobin Ql (U) TRACE-INTACT Abnormal NEGATIVE [facility] Comment on above: Performed By: #### U AMIC #### [facility] [address] [place] [address] Dr. Glenny Sneed Ketones Ql (U) Negative Normal NEGATIVE [facility] Comment on above: Performed By: #### U AMIC #### [facility] [address] [place] [address] Dr. Glenyn Sneed LEUKOCYTES Negative Normal NEGATIVE [facility] Comment on above: Performed By: #### U AMIC #### [facility] [address] [place] [address] Dr. Glenny Sneed MUCOUS NONE SEEN Normal NONE SEEN [facility] Comment on above: Performed By: #### U AMIC #### [facility] [address] [address] [address] Glenny Sneed Nitrite Ql (U) Negative Normal NEGATIVE [facility] Comment on above: Performed By: #### U AMIC #### [facility] [address] [place] [address] Dr. Glenny Sneed pH (U) 6.5 [pH] Normal 5-9 [facility] Comment on above: Performed By: #### U AMIC #### [facility] [address] [place] [address] Dr. Glenny Sneed RBC 0-2 Normal 0-2 [facility] Comment on above: Performed By: #### U AMIC #### [facility] [address] [place] [address] Dr. Glenny Sneed SPEC GRAVITY <=1.005 Abnormal 1.005-<=1.025 [facility] Comment on above: Performed By: #### U AMIC #### [facility] [address] [place] [address] Dr. Glenny Sneed UA PROTEIN Negative Normal NEGATIVE/ TRACE [facility] Comment on above: Performed By: #### U AMIC #### [facility] [address] [place] [address] Dr. Glenny Sneed Urobilinogen Qn (U) 0.2 {Justice'U}/dL Normal 0.2 - 1. 0 [facility] Comment on above: Performed By: #### U AMIC #### [facility] [address] [place] [address] Dr. Glenny Sneed WBC NONE SEEN Normal NONE SEEN [facility] Comment on above: Performed By: #### U AMIC #### [facility] [address] [place] [address] Dr. Glenny Sneed VITAMIN D 25 OHon 11-07-2022 VIT D 25-OH 35.2 ng/mL Normal [facility] Comment on above: Performed By: #### F T4, VITAD #### [facility] [address] [place] [address] Dr. Glenny Sneed VIT D RANGES SEE BELOW Normal [facility] Comment on above: Result Comment: <20 ng/mL Vit D deficient 20 - <30 ng/mL Vit D insufficient 30 - 100 ng/mL Vit D sufficient >100 ng/mL Potential Toxicity Performed By: #### F T4, VITAD #### [facility] [address] [place] [address] Dr. Glenny Sneed HEPATITIS C ANTIBODYon 05-10 Hep C Virus Ab <0.1 Normal 0.0-0.9 [facility] Comment on above: Result Comment: Nega tive: < 0.8 Indeterminate: 0.8 - 0.9 Positive: > 0.9 . HCV antibody alone does not differentiate between previous resolved infection and active infection. The CDC and current clinical guidelines recommend that a positive HCV antibody result be followed up with an HCV RNA test to support the diagnosis of acute HCV infection. [facility] offers Hepatitis C Virus (HCV) RNA, Diagnosis, CORTES (833644) and Hepatitis C Virus (HCV) Antibody with reflex to Quantitative Real-time PCR (126088). Performed By: #### T ZENAIDA, FT3 #### [facility] [address] [place] [address] Dr. Glenny Sneed LIPID PROFILEon 05-08-2022 CHOL-HDL RATIO NORM SEE BELOW Normal [facility] Comment on above: Result Comment: 3.3 - 4.4 LOW RISK 4.4 - 7.1 AVERAGE RISK 7.1 - 11.0 MODERATE RISK >11.0 HIGH RISK Performed By: #### T SH, FT3 #### [facility] [address] [place] [address] Dr. Glenny Sneed Cholesterol [Mass/Vol] 173 mg/dL Normal <=200 [facility] Comment on above: Performed By: #### T SH, FT3 #### [facility] [address] [address] [address] Glenny Sneed Cholesterol in HDL [Mass/Vol] 67 mg/dL Critically high 40-60 [facility] Comment on above: Performed By: #### T SH, FT3 #### [facility] [address] [place] [address] Dr. Glenny Snede Cholesterol in LDL [Mass/Vol] 77.8 mg/dL Normal [facility] Comment on above: Performed By: #### T SH, FT3 #### [facility] [address] [place] [address] Dr. Glenny Sneed Cholesterol.total/Cho lesterol in HDL [Mass ratio] 2.6 {ratio} Normal [facility] Comment on above: Performed By: #### T SH, FT3 #### [facility] [address] [place] [address] Dr. Glenny Sneed HDL NORMAL > or = 60 mg/dl - LOW CARDIOVASCULAR RISK <40 mg/dl - HIGH CARDIOVASCULAR RISK Normal [facility] Comment on above: Performed By: #### T SH, FT3 #### [facility] [address] [place] [address] Dr. Glenny Sneed LDL CALC NORMAL SEE BELOW Normal [facility] Comment on above: Result Comment: <100 mg/dl OPTIMAL 100 - 129 mg/dl NEAR OR ABOVE OPTIMAL 130 - 159 mg/dl BORDERLINE HIGH 160 - 189 mg/dl HIGH >190 mg/dl VERY HIGH Performed By: #### T SH, FT3 #### [facility] [address] [place] [address] Dr. Glenny Sneed Triglyceride [Mass/Vol] 141 mg/dL Normal <=150 [facility] Comment on above: Performed By: #### T SH, FT3 #### [facility] [address] [place] [address] Dr. Glenny Sneed VLDL CALC 28.2 mg/dL Normal [facility] Comment on above: Performed By: #### T SH, FT3 #### [facility] [address] [place] [address] Dr. Glenny Sneed LIVER PROFILEon 05-08-2022 Albumin [Mass/Vol] 4.0 g/dL Normal 3.4-5.0 [facility] Comment on above: Performed By: #### T ZENAIDA, FT3 #### [facility] [address] [place] [address] Dr. Glenny Sneed Albumin/Globulin [Mass ratio] 1.0 {ratio} Normal [facility] Comment on above: Performed By: #### T ZENAIDA, FT3 #### [facility] [address] [place] [address] Dr. Glenny Sneed ALP [Catalytic activity/Vol] 77 U/L Normal 46-116 [facility] Comment on above: Performed By: #### T ZENAIDA, FT3 #### [facility] [address] [place] [address] Dr. Glenny Sneed ALT [Catalytic activity/Vol] 39 U/L Normal 14-59 [facility] Comment on above: Performed By: #### T ZENAIDA, FT3 #### [facility] [address] [place] [address] Dr. Glenny Sneed AST [Catalytic activity/Vol] 20 U/L Normal 15-37 [facility] Comment on above: Performed By: #### T ZENAIDA, FT3 #### [facility] [address] [place] [address] Dr. Glenny Sneed BILI, CONJUGATED 0.1 mg/dL Normal 0.0-0.2 [facility] Comment on above: Performed By: #### T ZENAIDA, FT3 #### [facility] [address] [place] [address] Dr. Glenny Sneed Bilirubin [Mass/Vol] 0.7 mg/dL Normal 0.2-1.0 [facility] Comment on above: Performed By: #### T ZENAIDA, FT3 #### [facility] [address] [place] [address] Dr. Glenny Sneed Globulin (S) [Mass/Vol] 4.0 g/dL Normal [facility] Comment on above: Performed By: #### T ZENAIDA, FT3 #### [facility] [address] [place] [address] Dr. Glenny Sneed Protein [Mass/Vol] 8.0 g/dL Normal 6.4-8.2 [facility] Comment on above: Performed By: #### T SH, FT3 #### [facility] [address] [place] [address] Dr. Glenny Sneed LIVER PROFILEon 02-13-2022 Albumin [Mass/Vol] 3.9 g/dL Normal 3.4-5.0 [facility] Comment on above: Performed By: #### T SH, FT3 #### [facility] [address] [place] [address] Dr. Glenny Sneed Albumin/Globulin [Mass ratio] 1.0 {ratio} Normal [facility] Comment on above: Performed By: #### T SH, FT3 #### [facility] [address] [place] [address] Dr. Glenny Sneed ALP [Catalytic activity/Vol] 112 U/L Normal 46-116 [facility] Comment on above: Performed By: #### T SH, FT3 #### [facility] [address] [place] [address] Dr. Glenny Sneed ALT [Catalytic activity/Vol] 50 U/L Normal 14-59 [facility] Comment on above: Performed By: #### T SH, FT3 #### [facility] [address] [place] [address] Dr. Glenny Sneed AST [Catalytic activity/Vol] 25 U/L Normal 15-37 [facility] Comment on above: Performed By: #### T SH, FT3 #### [facility] [address] [place] [address] Dr. Glenny Sneed BILI, CONJUGATED 0.2 mg/dL Normal 0.0-0.2 [facility] Comment on above: Performed By: #### T SH, FT3 #### [facility] [address] [place] [address] Dr. Glenny Sneed Bilirubin [Mass/Vol] 0.7 mg/dL Normal 0.2-1.0 [facility] Comment on above: Performed By: #### T SH, FT3 #### [facility] [address] [place] [address] Dr. Glenny Sneed Globulin (S) [Mass/Vol] 4.0 g/dL Normal [facility] Comment on above: Performed By: #### T SH, FT3 #### [facility] [address] [place] [address] Dr. Glenny Sneed Protein [Mass/Vol] 7.9 g/dL Normal 6.4-8.2 [facility] Comment on above: Performed By: #### T SH, FT3 #### [facility] [address] [place] [address] Dr. Glenny COLEOTomagui 01-23-2022 AST [Catalytic activity/Vol] 41 U/L Critically high 15-37 [facility] Comment on above: Performed By: #### T SH, FT3 #### [facility] [address] [place] [address] Dr. Glenny COLEPTon 01-23-2022 ALT [Catalytic activity/Vol] 85 U/L Critically high 14-59 [facility] Comment on above: Performed By: #### T SH, FT3 #### [facility] [address] [place] [address] Dr. Glenny Sneed LIPID PROFILEon 01-07-2022 CHOL-HDL RATIO NORM SEE BELOW Normal [facility] Comment on above: Result Comment: 3.3 - 4.4 LOW RISK 4.4 - 7.1 AVERAGE RISK 7.1 - 11.0 MODERATE RISK >11.0 HIGH RISK Performed By: #### T SH, FT3 #### [facility] [address] [place] [address] Dr. Glenny Sneed Cholesterol [Mass/Vol] 144 mg/dL Normal <=200 [facility] Comment on above: Performed By: #### T SH, FT3 #### [facility] [address] [place] [address] Dr. Glenny Sneed Cholesterol in HDL [Mass/Vol] 63 mg/dL Critically high 40-60 [facility] Comment on above: Performed By: #### T SH, FT3 #### [facility] [address] [address] [address] Glenny Sneed Cholesterol in LDL [Mass/Vol] 56.2 mg/dL Normal [facility] Comment on above: Performed By: #### T SH, FT3 #### [facility] [address] [place] [address] Dr. Glenny Sneed Cholesterol.total/Cho lesterol in HDL [Mass ratio] 2.3 {ratio} Normal [facility] Comment on above: Performed By: #### T SH, FT3 #### [facility] [address] [address] [address] Glenny Sneed HDL NORMAL > or = 60 mg/dl - LOW CARDIOVASCULAR RISK <40 mg/dl - HIGH CARDIOVASCULAR RISK Normal [facility] Comment on above: Performed By: #### T SH, FT3 #### [facility] [address] [place] [address] Dr. Glenny Sneed LDL CALC NORMAL SEE BELOW Normal [facility] Comment on above: Result Comment: <100 mg/dl OPTIMAL 100 - 129 mg/dl NEAR OR ABOVE OPTIMAL 130 - 159 mg/dl BORDERLINE HIGH 160 - 189 mg/dl HIGH >190 mg/dl VERY HIGH Performed By: #### T SH, FT3 #### [facility] [address] [place] [address] Dr. Glenny Sneed Triglyceride [Mass/Vol] 124 mg/dL Normal <=150 [facility] Comment on above: Performed By: #### T SH, FT3 #### [facility] [address] [place] [address] Dr. Glenny Sneed VLDL CALC 24.8 mg/dL Normal [facility] Comment on above: Performed By: #### T SH, FT3 #### [facility] [address] [address] [address] Glenny COLEOTon 01-07-2022 AST [Catalytic activity/Vol] 53 U/L Critically high 15-37 [facility] Comment on above: Performed By: #### T SH, FT3 #### [facility] [address] [place] [address] Dr. Glenny Sneed SGPTon 01-07-2022 ALT [Catalytic activity/Vol] 108 U/L Critically high 14-59 [facility] Comment on above: Performed By: #### T , FT3 #### [facility] [address] [address] [address] Glenny Sneed Vital Signs Date Time Vital Sign Value Performing Clinician Garyi jeffrey 11-05-2023 09:44-0500 Body height 154.9 cm Pamela Oscar [employer]IL SURVEYOR Work Phone: [facility] 11-05-2023 09:44-0500 Body mass index (BMI) [Ratio] 30 kg/m2 Pamela Aichsarahz SOIL SURVEYOR Work Phone: [facility] 11-05-2023 09:44-0500 Body temperature 97.5 [degF] Pamela Oscar SOIL SURVEYOR Work Phone: [facility] 11-05-2023 09:44-0500 Body weight 72.03 kg Pamela Aichholz SOIL SURVEYOR Work Phone: [facility] 11-05-2023 09:44-0500 Diastolic blood pressure 68 mm[Hg] Pamela Aichholz SOIL SURVEYOR Work Phone: [facility] 11-05-2023 09:44-0500 Heart rate 61 /min Pamela Aichholz SOIL SURVEYOR Work Phone: [facility] 11-05-2023 09:44-0500 Respiratory rate 18 /min Pamela Aichholz SOIL SURVEYOR Work Phone: [facility] 11-05-2023 09:44-0500 SaO2% (BldA) [Mass fraction] 98 % Pamela Aichholz SOIL SURVEYOR Work Phone: [facility] 11-05-2023 09:44-0500 Systolic blood pressure 138 mm[Hg] Pamela Aichsarahz SOIL SURVEYOR Work Phone: [facility] Healthcare Encounters Encounter Date Encounter Type Care Provider Facility Start: 11-05-2023 Bamboo flowsheet Pamela Oscar SOIL SURVEYOR Work Phone: [facility] Start: 11-05-2023 Bamboo flowsheet Pamela Moore SOIL SURVEYOR Work Phone: [facility] Start: 11-05-2023 End: 11-05-2023 ambulatory PAMELA OSCAR Not Available Start: 11-05-2023 End: 11-05-2023 Office outpatient visit 25 minutes Pamela Moore SOIL SURVEYOR Work Phone: [facility] Comment on above: Gastroesophageal ref lux disease, unspecified whether esophagitis present (Primary Dx); Age related osteoporosis, unspecified pathological fracture presence ([facility]/HCC); Vitamin D deficiency; Pre-diabetes; Hypothyroidism (acquired) ([facility]); Mixed hyperlipidemia ([facility]); Encounter for screening mammogram for malignant neoplasm of breast; BMI 30.0-30.9,adult; Chronic left shoulder pain Start: 09-17-2023 End: 09-17-2023 ambulatory PAMELA MOORE Not Available Start: 02-20-2023 ambulatory [facility] Facility :[facility] Start: 01-03-2023 End: 01-04-2023 ambulatory [employer] PAMELA OSCAR Facility:[facility] Start: 12-16-2022 End: 12-17-2022 ambulatory [employer] PAMELA OSCAR Facility:[facility] Start: 11-07-2022 End: 11-08-2022 ambulatory [employer] PAMELA OSCAR Facility:[facility] Start: 05-08-2022 End: 05-09-2022 ambulatory [employer] PAMELA OSCAR Facility:[facility] Start: 02-13-2022 End: 02-14-2022 ambulatory [employer] PAMELA OSCAR Facility:[facility] Start: 01-23-2022 End: 01-24-2022 ambulatory [employer] PAMELA RAMANAZ Facility:[facility] Start: 01-07-2022 End: 01-08-2022 ambulatory [employer] PAMELA OSCAR Facility:[facility] Procedures Date Procedure Procedure Detail Performing Clinician Start: 05-23-2021 Colonoscopy Pamela john SOIL SURVEYOR Work Phone: Plan of Treatment Date Care Activity Detail Author Start: 05-23-2031 Screening for malignant neoplasm of colon [facility] Start: 05-08-2024 Medicare Annual Wellness (AWV) Medicare Annual Wellness (AWV) [facility] Start: 03-08-2024 End: 03-08-2024 Patient encounter procedure 03/08/2024 9:40 AM EDT Office Visit [facility] [address] [place] [address] Pamela Moore, MARIKA [address] [place] [address] [facility] Start: 01-05-2024 End: 01-03-2025 MG Breast - bilateral Screening Bilateral screening mammogram Imaging Routine Encounter for screening mammogram for malignant neoplasm of breast Expected: 01/05/2024 (Approximate), Expires: 01/03/2025 [facility] Comment on above: Expected: 01/05/2024 (Approximate), Expi res: 01/03/2025 Start: 11-05-2023 End: 11-05-2024 25-hydroxyvitamin D3 [Mass/volume] in Serum or Plasma Vitamin D 25 hydroxy Lab Routine Vitamin D deficiency Expected: 11/05/2023 (Approximate), Expires: 11/05/2024 [facility] Comment on above: Expected: 11/05/2023 (Approximate), Expi res: 11/05/2024 Start: 11-05-2023 End: 11-05-2024 CBC W Auto Differential panel - Blood CBC and differential Lab Routine Gastroesophageal reflux disease, unspecified whether esophagitis present Expected: 11/05/2023 (Approximate), Expires: 11/05/2024 [facility] Work Phone: Comment on above: Expected: 11/05/2023 (Approximate), Expi res: 11/05/2024 Start: 11-05-2023 End: 11-05-2024 Comprehensive metabolic 2000 panel - Serum or Plasma Comprehensive metabolic panel Lab Routine Gastroesophageal reflux disease, unspecified whether esophagitis present Age related osteoporosis, unspecified pathological fracture presence (CMS/HCC) Vitamin D deficiency Pre-diabetes Mixed hyperlipidemia (CMS/HCC) Expected: 11/05/2023 (Approximate), Expires: 11/05/2024 [facility] Comment on above: Expected: 11/05/2023 (Approximate), Expi res: 11/05/2024 Start: 11-05-2023 End: 11-05-2024 DXA Skeletal system Views for bone density DEXA bone density Imaging Routine Age related osteoporosis, unspecified pathological fracture presence ([facility]) Expected: 11/05/2023 (Approximate), Expires: 11/05/2024 [facility] Healthcare Comment on above: Expected: 11/05/2023 (Approximate), Expi res: 11/05/2024 Start: 11-05-2023 End: 11-05-2024 Hemoglobin A1c measurement Hemoglobin A1c Lab Routine Pre-diabetes Expected: 11/05/2023 (Approximate), Expires: 11/05/2024 [facility] Healthcare Comment on above: Expected: 11/05/2023 (Approximate), Expi res: 11/05/2024 Start: 11-05-2023 End: 11-05-2024 Lipid 1996 panel - Serum or Plasma Lipid panel Lab Routine Pre-diabetes Hypothyroidism (acquired) ([facility]) Mixed hyperlipidemia ([facility]) Expected: 11/05/2023 (Approximate), Expires: 11/05/2024 [facility] Healthcare Comment on above: Expected: 11/05/2023 (Approximate), Expi res: 11/05/2024 Start: 11-05-2023 End: 11-05-2024 Microalbumin/Creatinine panel in random Urine Microalbumin / creatinine, urine ratio Lab Routine Pre-diabetes Expected: 11/05/2023 (Approximate), Expires: 11/05/2024 [facility] Healthcare Comment on above: Expected: 11/05/2023 (Approximate), Expi res: 11/05/2024 Start: 11-05-2023 End: 11-05-2024 Urinalysis complete panel - Urine Urinalysis with reflex microscopic (clean catch) Lab Routine Pre-diabetes Expected: 11/05/2023 (Approximate), Expires: 11/05/2024 [facility] Healthcare Comment on above: Expected: 11/05/2023 (Approximate), Expi res: 11/05/2024 Start: 11-05-2023 End: 11-05-2023 Patient encounter procedure 11/05/2023 9:40 AM EST Office Visit [facility] [address] [place] [address] Pamela Moore, MARIKA [address] [place] [id number] Gastroesophageal reflux disease, unspecified whether esophagitis present (Primary Dx); Age related osteoporosis, unspecified pathological fracture presence (CMS/HCC); Vitamin D deficiency; Pre-diabetes; Hypothyroidism (acquired) (CMS/HCC); Mixed hyperlipidemia (CMS/HCC); Encounter for screening mammogram for malignant neoplasm of breast [facility] Comment on above: Gastroesophageal reflux disease, unspeci fied whether esophagitis present (Primary Dx); Age related osteoporosis, unspecified pathological fracture presence (CMS/HCC); Vitamin D deficiency; Pre-diabetes; Hypothyroidism (acquired) (CMS/HCC); Mixed hyperlipidemia (CMS/HCC); Encounter for screening mammogram for malignant neoplasm of breast Start: 05-23-2023 Influenza vaccination Influenza Vaccine (#1) [facility] Start: 2012 Pneumococcal Vaccine: 65+ Years (1 - PCV) Pneumococcal Vaccine: 65+ Years (1 - PCV) [facility] Start: 1945 Screening for malignant neoplasm of colon [facility] Payers Date Payer Category Payer Medicare [employer] MED[employer]ARE ADVANTAGE [facility] MEDICARE ADVANTAGE [id number] 2021-Present [address] [place] [address] [id number] 1959 Unknown [id number] 1947 Unknown [id number] 1947 Unknown [id number] 1947 Unknown [id number] 1947 Unknown [id number] 1947 Unknown [id number] 1947 Unknown [id number] 1947 Unknown [id number] 1947 Unknown [id number] 1947 Unknown [id number] 9 1947 Unknown [id number] 9 Social History Date Type Detail Facility Start: 01-31-2023 Tobacco smoking stat [facility] Never smoked tobacco [facility] Start: 01-31-2023 Tobacco use and exposure Smokeless t obacco non-user [facility] Start: 11-05-2023 Alcohol intake Ex-drinker (finding) [facility] Start: 09-17-2023 End: 11-05-2023 History of Social function [facility] Start: 09-17-2023 End: 11-05-2023 Tobacco use panel [facility] Start: 03-15-2023 Alcohol Comment Caffeine Intak e: more then 4 cups/day [facility] Start: 1945 Sex Assigned At Not on file [facility] History of Present illness Narrative 11-05-2023 Pamela Moore NP - 11/05/2023 10:46 AM Donell Moore NP - 11/05/2023 10:45 AM Donell Moore NP - 11/05/2023 10:45 AM Donell Moore NP - 11/05/2023 10:44 AM EST Note Date & Type Note Facility 11-05-2023 History of Presen t illness Narrative Associated Problem(s): Chronic left shoulder pain Will refer to Dr De La Fuente in [place] per pt request Associated Problem(s): Encounter for screening mammogram for malignant neoplasm of breast Due mid December 2023, will check dexa scan then too Associated Problem(s): Hyperlipidemia (CMS/HCC) Check labs Associated Problem(s): Hypothyroidism (acquired) (CMS/HCC) Check labs, no hypo or hyper symptoms at this time Associated Problem(s): Vitamin D deficiency Check labs Associated Problem(s): Osteoporosis (CMS/HCC) Needs DEXA scan Left arm can not lift all the way-pain Started 2-3 weeks ago. Pt says there is grind to the joint she did not do anything to it nor laid on it wrong. Ribs on left side still hurting especially when she breaths Images from the original note were not included. Bernard Ponce is a 77 y.o. female presents with chief complaint of No chief complaint on file. HPI: Here for fu appt: still with slight left rib discomfort, notices with deep breath Predominant complaint today is her left shoulder pain Shoulder Pain The pain is present in the left shoulder. This is a chronic problem. The current episode started more than 1 month ago. There has been a history of trauma. The problem occurs daily. The problem has been gradually worsening. The quality of the pain is described as aching and sharp. The pain is moderate. Associated symptoms include a limited range of motion and stiffness. Pertinent negatives include no fever. Exacerbated by: movement. The treatment provided no relief. SUBJECTIVE: MEDICATIONS: Current Outpatient Medications Medication Instructions albuterol HFA 90 mcg/act inhaler 2 puffs, Inhalation, Every 4 hours PRN alendronate (FOSAMAX) 70 mg, Oral, Every 7 days atorvastatin (LIPITOR) 20 mg, Oral, Daily benzonatate (TESSALON) 100 mg, Oral, 3 times daily PRN cholecalciferol (Vitamin D-3) 125 MCG (5000 UT) capsule Vitamin D3 fluticasone (Flonase) 50 MCG/ACT nasal spray 1 spray, Each Nostril, Daily furosemide (LASIX) 20 mg, Oral, As needed levothyroxine (SYNTHROID) 50 mcg, Oral, Daily before breakfast loratadine (CLARITIN) 10 mg, Oral, As needed meclizine (Antivert) 25 MG tablet 1 tablet, Oral, 4 times daily PRN Multiple Vitamin (MULTIVITAMIN ADULT PO) Multivitamin omega-3 (fish oil) 1000 MG capsule 1 capsule, Oral, Every 24 hours Papaya 100 MG tablet Papaya ALLERGIES: Allergies Allergen Reactions Ampicillin Hives REVIEW OF SYMPTOMS: Review of Systems Constitutional: Negative for appetite change, chills and fever. HENT: Negative for congestion, ear pain and sore throat. Eyes: Negative for pain, discharge, redness and visual disturbance. Respiratory: Negative for cough, shortness of breath and wheezing. Cardiovascular: Negative for chest pain, palpitations and leg swelling. Gastrointestinal: Negative for abdominal pain, blood in stool, constipation, diarrhea, nausea and vomiting. Genitourinary: Negative for difficulty urinating, dysuria and frequency. Musculoskeletal: Positive for arthralgias and stiffness. Negative for back pain, joint swelling and myalgias. Skin: Negative for rash and wound. Neurological: Negative for dizziness, tremors, seizures, syncope and headaches. Psychiatric/Behavioral: Negative for behavioral problems, self-injury and suicidal ideas. The patient is not nervous/anxious. Hematological: Does not bruise/bleed easily. Endocrine: Negative for polydipsia, polyphagia and polyuria. Allergic/Immunologic: Negative for environmental allergies and food allergies. PAST MEDICAL HISTORY Past Medical History: Diagnosis Date Allergic rhinitis Chronic laryngitis Chronic osteoarthritis Class 1 obesity without serious comorbidity with body mass index (BMI) of 30.0 to 30.9 in adult 09/17/2023 Cough in adult Degenerative cervical disc Diverticulosis of large intestine without hemorrhage Elevated liver function tests ETD (Eustachian tube dysfunction), left GERD (gastroesophageal reflux disease) Hyperlipidemia (CMS/HCC) Insomnia LPRD (laryngopharyngeal reflux disease) Osteoporosis (CMS/HCC) Pre-diabetes Primary osteoarthritis of right knee Trigger ring finger of right hand Vitamin D deficiency Past Surgical History: Procedure Laterality Date BACK SURGERY 1982 CARPAL TUNNEL RELEASE 2013 SECTION, LOW TRANSVERSE 1969, 1973 KNEE SURGERY Arthroscopy x3 TOTAL KNEE ARTHROPLASTY Left 2017 Dr Armijo TRIGGER FINGER RELEASE Right RT thumb family history includes Arthritis in her father; Cancer in an other family member; Diabetes in her mother; Heart disease in her father and mother; Stroke in her father and mother. OBJECTIVE: Visit Vitals BP 138/68 (BP Location: Right arm, Patient Position: Sitting, BP Cuff Size: Adult long) Pulse 61 Temp 97.5 F (Temporal) Resp 18 Ht 5' 1 Wt 158 lb 12.8 oz SpO2 98% BMI 30.00 kg/m Smoking Status Never BSA 1.76 m Physical Exam Vitals reviewed. Constitutional: General: She is not in acute distress. Appearance: Normal appearance. HENT: Head: Normocephalic and atraumatic. Right Ear: Tympanic membrane, ear canal and external ear normal. Left Ear: Tympanic membrane, ear canal and external ear normal. Nose: Nose normal. Mouth/Throat: Mouth: Mucous membranes are moist. Eyes: Extraocular Movements: Extraocular movements intact. Conjunctiva/sclera: Conjunctivae normal. Neck: Vascular: No carotid bruit. Cardiovascular: Rate and Rhythm: Normal rate and regular rhythm. Pulses: Normal pulses. Heart sounds: Normal heart sounds. Pulmonary: Effort: Pulmonary effort is normal. Breath sounds: Normal breath sounds. Abdominal: General: Bowel sounds are normal. There is no distension. Palpations: Abdomen is soft. There is no mass. Tenderness: There is no abdominal tenderness. Musculoskeletal: Cervical back: Neck supple. Comments: Left shoulder: tenderness to left ant shoulder, +crepitus with ROM Abdduction 90, forward extension 90 Ant pain with internal/external rotation shoulder Minimal tenderness to left lateral rib region Skin: General: Skin is warm and dry. Capillary Refill: Capillary refill takes 2 to 3 seconds. Findings: No rash. Neurological: General: No focal deficit present. Mental Status: She is alert and oriented to person, place, and time. Psychiatric: Mood and Affect: Mood normal. Behavior: Behavior normal. Thought Content: Thought content normal. Judgment: Judgment normal. ASSESSMENT AND PLAN: No follow-ups on file. Problem List Items Addressed This Visit GERD (gastroesophageal reflux disease) - Primary Relevant Orders CBC and differential Comprehensive metabolic panel Osteoporosis (CMS/HCC) Needs DEXA scan Relevant Orders Comprehensive metabolic panel DEXA bone density Vitamin D deficiency Check labs Relevant Orders Comprehensive metabolic panel Vitamin D 25 hydroxy Pre-diabetes Relevant Orders Urinalysis with reflex microscopic (clean catch) Microalbumin / creatinine, urine ratio Lipid panel Hemoglobin A1c Comprehensive metabolic panel Hyperlipidemia (CMS/HCC) Check labs Relevant Orders Lipid panel Comprehensive metabolic panel Hypothyroidism (acquired) (CMS/HCC) Check labs, no hypo or hyper symptoms at this time Relevant Orders Lipid panel Encounter for screening mammogram for malignant neoplasm of breast Due mid December 2023, will check dexa scan then too Relevant Orders Bilateral screening mammogram BMI 30.0-30.9,adult Chronic left shoulder pain Will refer to Dr De La Fuente in [place] per pt request Relevant Orders Ambulatory referral to Orthopaedic Surgery documented in this encounter [facility] Evaluation note Note Date & Type Note Facility Evaluation note Diagnosis Gastroesophageal reflux disease, unspecified whether esophagitis present- Primary Age related osteoporosis, unspecified pathological fracture presence (CMS/HCC) Vitamin D deficiency Pre-diabetes Other abnormal glucose Hypothyroidism (acquired) (CMS/HCC) Unspecified hypothyroidism Mixed hyperlipidemia (CMS/HCC) Mixed hyperlipidemia Encounter for screening mammogram for malignant neoplasm of breast BMI 30.0-30.9,adult Chronic left shoulder pain Pain in joint, shoulder region documented in this encounter [facility] Reason for referral (narrative) Consultation (Routine) - Pending Review Note Date & Type Note Facility Reason for referral (narrati ve) Specialty Diagnoses / Procedures Referred By Lisa morgan Referred To Contact Orthopaedic Surgery Diagnoses Chronic left shoulder pain Pamela Moore NP [address] [place] [address] Ziggy De La Fuente MD [address] [place] [address] Referral ID Status Reason Start Date Expiration Date Visits Requested Visits Authorized [id number] Pending Review Specialty Services Required 11/05/2023 05/03/2024 1 1 [facility] Summary Purpose Family History No Family History Records FoundNo Family History Records FoundNo Family History Records Found Advance Directives No Advanced Directives Records FoundNo Advanced Directives Records FoundNo Advanced Directives Records Found Additional Source Comments INFORMATION SOURCE (unrecogn ized section and content) DATE CREATED AUTHOR 01/06/2023 [facility] DATE CREATED AUTHOR AUTHOR'S ORGANIZ ATION 02/28/2023 [facility] DATE CREATED AUTHOR AUTHOR'S ORGANIZ ATION 11/06/2023 [facility] Care Teams (unrecognized sec tion and content) 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 This clinical summary was aggregated from multiple sources. Caution should be exercised in using it in the provision of clinical care. This summary normalizes information from multiple sources, and as a consequence, information in this document may materially change the coding, format and clinical context of patient data. In addition, data may be omitted in some cases. CLINICAL DECISIONS SHOULD BE BASED ON THE PRIMARY CLINICAL RECORDS. [employer] [facility]. provides no warranty or guarantee of the accuracy or completeness of information in this document.
[2023-11-07 10:29] LABS: Basophils Absolute Auto 0.1 10^3/uL (0.0-0.1); Basophils Percent Auto 1.3 % (0.2-2.0); Eosinophils Absolute Auto 0.2 10^3/uL (0.0-0.7); Eosinophils Percent Auto 2.9 % (0.9-7.0); Hematocrit 40.2 % (36.0-48.0); Hemoglobin 12.3 g/dL (12.0-16.0); Immature Granulocytes Abs Auto 0.02 10^3/uL (0.00-0.03); Immature Granulocytes Pct Auto 0.3 % (0.0-0.5); Lymphocytes Percent Auto 38.6 % (20.5-60.0); Mean Corpuscular HGB Conc 30.6 g/dL (29.9-35.2); Mean Corpuscular Hemoglobin 26.9 pg (26.7-34.0); Mean Corpuscular Volume 87.8 fL (81.0-99.0); Monocytes Absolute Auto 0.6 10^3/uL (0.3-0.8); Monocytes Percent Auto 7.6 % (1.7-12.0); Neutrophils Absolute Auto 3.8 10^3/uL (1.4-6.5); Neutrophils Percent Auto 49.3 % (43.0-75.0); Platelet Count 320 10^3/uL (150-450); Red Blood Count 4.58 10^6/uL (4.20-5.40); Red Cell Distribution Width 13.5 % (11.0-15.0); White Blood Count 7.7 10^3/uL (4.0-11.0)
[2023-11-07 11:00] LABS: Estimated Average Glucose 128 mg/dL; Glycohemoglobin A1C 6.1 % (4.5-6.2)
[2023-11-07 11:30] LABS: Bilirubin Urine NEGATIVE (NEGATIVE); Blood Urine TRACE-I (NEGATIVE); Clarity Urine CLEAR (CLEAR); Color Urine LT. YELLOW (YELLOW); Glucose Urine UA NEGATIVE (NEGATIVE); Ketones Urine NEGATIVE (NEGATIVE); Leukocyte Esterase Urine NEGATIVE (NEGATIVE); Nitrite Urine NEGATIVE (NEGATIVE); Protein Urine NEGATIVE (NEG/TRACE); Urobilinogen Urine 0.2 EU/dL (0.2-1.0)
[2023-11-07 11:32] LABS: Urine Microscopic Indicated YES
[2023-11-07 11:41] LABS: Creatinine Urine Random 110.88 mg/dL (20.00-300.00); Microalbum Creatinine Ratio Ur 11.7 mg/g (0.0-29.9); Microalbumin Urine Random <1.3 mg/dL (<=30.0)
[2023-11-07 11:42] LABS: Alanine Aminotransferase 30 U/L (14-59); Albumin Globulin Ratio 0.9; Albumin Level 3.8 g/dL (3.4-5.0); Alkaline Phosphatase 75 U/L (46-116); Anion Gap 9.2; Aspartate Amino Transferase 21 U/L (15-37); BUN Creatinine Ratio 17.6; Bilirubin Total 0.6 mg/dL (0.2-1.0); Calcium 9.8 mg/dL (8.5-10.1); Carbon Dioxide 29.9 mmol/L (21.0-32.0); Chloride 106 mmol/L (98-107); Chol HDL Ratio 2.7; Cholesterol 165 mg/dL (<=200); Estimated GFR (African America >60 (>=60); Estimated GFR (Non-African Ame >60 (>=60); Globulin 4.2 g/dL; Glucose 108 mg/dL (74-106); HDL Cholesterol 62 mg/dL (40-60); Potassium 4.1 mmol/L (3.5-5.1); Sodium 141 mmol/L (136-145); Triglycerides 172 mg/dL (<=150); VLDL CHOLESTEROL 34.4 mg/dL
[2023-11-07 12:29] LABS: WBC Urine 0-2 #/HPF (NONE SEEN)
[2023-11-07 12:30] LABS: Bacteria Urine NONE SEEN #/HPF (NONE SEEN); Cast Seen? NONE SEEN #/LPF (NONE SEEN); Crystals Seen? None Seen #/HPF (None Seen); Mucus Urine NONE SEEN (NONE SEEN); RBC Urine 0-2 #/HPF (0-2); Squamous Epithelial Cell Urine RARE #/LPF (NONE/RARE)
== END 2023-11-07 09:41 | disposition home or self-care (01) ==
LOC: LAB 09:42
PROVIDERS: PCP Nurse Practitioner; Visit Provider Nurse Practitioner
DX: K21.9 Gastro-esophageal reflux disease without esophagitis (principal); R73.03 Prediabetes; E03.9 Hypothyroidism, unspecified; E78.2 Mixed hyperlipidemia; M81.0 Age-related osteoporosis without current pathological fracture; E55.9 Vitamin D deficiency, unspecified
CPT/HCPCS: 36415; 80053; 80061; 81001; 82043; 82306; 82570; 83036; 85025

== ENCOUNTER 2023-12-22 09:59 | Outpatient (OUT) | payer MEDICARE, SELFPAY ==
--- OUTSIDE RECORDS SUMMARY | 2023-12-22 10:12 | XMS_ITS | CCD ---
Author Organization [facility] Care Team Providers Care Credentialing Coordinator Name Role Phone AICHHOLZ, CONSTRUCTION SALES REPRESENTATIVE PAMELA Admitting Unavailable AICHHOLZ, CONSTRUCTION SALES REPRESENTATIVE PAMELA Attending Unavailable AICHHOLZ, CONSTRUCTION SALES REPRESENTATIVE PAMELA Primary Care Unavailable AICHHOLZ, CONSTRUCTION SALES REPRESENTATIVE PAMELA Consulting Unavailable AICHHOLZ, CONSTRUCTION SALES REPRESENTATIVE PAMELA Admitting Unavailable AICHHOLZ, CONSTRUCTION SALES REPRESENTATIVE PAMELA Attending Unavailable AICHHOLZ, CONSTRUCTION SALES REPRESENTATIVE PAMELA Primary Care Unavailable AICHHOLZ, CONSTRUCTION SALES REPRESENTATIVE PAMELA Consulting Unavailable AICHHOLZ, CONSTRUCTION SALES REPRESENTATIVE PAMELA Admitting Unavailable AICHHOLZ, CONSTRUCTION SALES REPRESENTATIVE PAMELA Attending Unavailable AICHHOLZ, CONSTRUCTION SALES REPRESENTATIVE PAMELA Primary Care Unavailable AICHHOLZ, CONSTRUCTION SALES REPRESENTATIVE PAMELA Consulting Unavailable AICHHOLZ, CONSTRUCTION SALES REPRESENTATIVE PAMELA Admitting Unavailable AICHHOLZ, CONSTRUCTION SALES REPRESENTATIVE PAMELA Attending Unavailable AICHHOLZ, CONSTRUCTION SALES REPRESENTATIVE PAMELA Primary Care Unavailable AICHHOLZ, CONSTRUCTION SALES REPRESENTATIVE PAMELA Consulting Unavailable AICHHOLZ, CONSTRUCTION SALES REPRESENTATIVE PAMELA Admitting Unavailable AICHHOLZ, CONSTRUCTION SALES REPRESENTATIVE PAMELA Attending Unavailable AICHHOLZ, CONSTRUCTION SALES REPRESENTATIVE PAMELA Primary Care Unavailable AICHHOLZ, CONSTRUCTION SALES REPRESENTATIVE PAMELA Consulting Unavailable AICHHOLZ, CONSTRUCTION SALES REPRESENTATIVE PAMELA Admitting Unavailable AICHHOLZ, CONSTRUCTION SALES REPRESENTATIVE PAMELA Attending Unavailable AICHHOLZ, CONSTRUCTION SALES REPRESENTATIVE PAMELA Primary Care Unavailable AICHHOLZ, CONSTRUCTION SALES REPRESENTATIVE PAMELA Consulting Unavailable AICHHOLZ, CONSTRUCTION SALES REPRESENTATIVE PAMELA Admitting Unavailable AICHHOLZ, CONSTRUCTION SALES REPRESENTATIVE PAMELA Attending Unavailable AICHHOLZ, CONSTRUCTION SALES REPRESENTATIVE PAMELA Primary Care Unavailable AICHHOLZ, CONSTRUCTION SALES REPRESENTATIVE PAMELA Consulting Unavailable JORGE GONCALVES Primary Care Unavailable Tab Ibarra Admitting Unavail able Tab Ibarra Attending Unavail able Jorge Goncalves MD Primary Care Provider [phone] AICHHOLZ, PAMELA Attending Unavailable AICHHOLZ, PAMELA Attending Unavailable AICHHOLZ, PAMELA Referring Unavailable MD Jorge Goncalves Primary Care Provider DO Braxton Escalante Attending Provider [phone] Braxton Escalante Admitting Unavailable Braxton Escalante Attending Unavailable Jorge Goncalves Primary Care Unavailable PAMELA MOORE Primary Care Unavailable BRAXTON ESCALANTE Referring Unavailable Allergies Allergy Classification Reported Allergen(s) Allergy Type Date of Onset Reaction(s) Facility (2 sources) Ampicillin; Translations: [AMPICILLIN] Drug Allergy 02-10-2012 [facility] Repository (3 sources) Ampicillin Drug Allergy 02-18-2023 [facility] (1 source) Ampicillin Drug Allergy 10-04-2021 [facility] Repository Medications Current Medications Medication Drug Class(es) Dates Sig (Normalized) Sig (Original) [id number] 200 actuat albuterol 0.09 mg/actuat metered dose [...] 11-13-2022 11-05-2023 Episodic Disorders of lipid metabolism (12 sources) Hyperlipidemia, unspecified; Translations: [Hyperlipidemia] Onset: 05-08-2022 [...] D deficiency] Onset: 11-13-2022 11-05-2023 Chronic Osteoarthritis (18 sources) Arthritis of right knee; Translations: [Unilateral primary osteoarthritis, right knee] Onset: 01-31-2023 01-31-2023 Chronic Osteoporosis (5 sources) Osteoporosis; Translations: [Age-related osteoporosis without current pathological fracture] Onset: 11-05-2023 11-05-2023 Chronic Other connective tissue disease (3 sources) Triggering of digit; Translations: [Trigger finger, right ring finger] Onset: 11-05-2023 11-05-2023 Episodic Other ear and sense organ disorders [...] left shoulder] Onset: 11-05-2023 11-05-2023 Episodic Other non-traumatic joint disorders (3 sources) Pain in left shoulder; Translations: [Left shoulder pain] Onset: 12-11-2023 12-08-2023 Episodic Other nutritional; endocrine; and metabolic disorders [...] Results Test Name Value Interpretation Reference Range Facility XR shoulder LT min 2V*on XR shoulder LT min 2V* [facility] [address] XRay Report Signed Patient: Bernard Ponce MR#: [id number] 2 : 1945 Acct:[id number] Age/Sex: 78 / F ADM Date: 12/11/23 [place] [facility] [place]: Type: [facility] Attending Dr: Braxton Escalante DO Copies to: Braxton Escalante DO Ordering Provider: Braxton Escalante DO Date of Service: 12/11/23 XR/XR shoulder LT min 2V*: M25.512 - Pain in left shoulder XR shoulder LT min 2V* 12/11/2023 8:58 AM SIGNS AND SYMPTOMS: Left shoulder pain PROTOCOL: Frontal, Grashey, scapular Y, and axillary views COMPARISON: None FINDINGS: There is mild hypertrophy of the acromioclavicular joint. There is moderate narrowing of the ulnohumeral joint with spurring along the inferior margin of the articular surface of the head of the humerus. The visualized left hemithorax is grossly intact. XR/XR shoulder LT min 2V* IMPRESSION: No fracture or dislocation. Moderate degenerative changes are noted in the left shoulder. Impression dictated by: Alvaro Carvajal M.D.12/11/2023 12:01 PM Dictation Location: [place] [address] Transcribed By: [facility] 12/11/23 1201 Dictated By: Alvaro Carvajal II, MD 12/11/23 1159 Signed By: 12/11/23 1201 Normal [facility] MG MAMM SCREEN 3D DAVID CADon 01-03-2023 MG MAMM SCREEN 3D DAVID CAD Patient: BERNARD PONCE Exam Date: 01/03/2023 : 1945 Gender:F Ordering : [facility] Admission #: [id number] Family : Order #: [id number] CLICK HERE TO VIEW EXAM RADIOLOGY REPORT [...] breast cancer at age 62. LOCATION: [facility] BREAST COMPOSITION: Scattered areas fibroglandular density. FINDINGS: [...] MD on 01/06/2023 at 09:57 Normal [facility] FREE T3on 12-16-2022 FREE T3 2.70 pg/mlL Normal 2.18-3.98 [facility] Comment on above: Performed By: #### T , FT3 #### [facility] [address] [place] [address] Dr. Glenny Sneed FREE T4on 12-16-2022 Free T4 [Mass/Vol] 0.92 ng/dL Normal 0.76-1.46 [facility] Comment on above: Performed By: #### F T4 #### [facility] [address] [place] [address] Dr. Glenny Sneed TSHon 12-16-2022 TSH 3.444 uIU/mL Normal 0.358-3.[address] [facility] Comment on above: Performed By: #### T SH, FT3 #### [facility] [address] [place] [address] Dr. Glenny Sneed CBC AUTO DIFFon 11-07-2022 BASO # 0.1 103/ul Normal 0.0-0.1 [facility] Comment on above: Performed By: #### T SH, FT3 #### [facility] [address] [place] [address] Dr. Glenny Sneed Basophils/100 WBC (Bld) 1.2 % Normal 0.2-2.0 [facility] Comment on above: Performed By: #### T SH, FT3 #### [facility] [address] [place] [address] Dr. Glenny Sneed EO # 0.2 103/ul Normal 0.0-0.7 [facility] Comment on above: Performed By: #### T SH, FT3 #### [facility] [address] [place] [address] Dr. Glenny Sneed Eosinophils/100 WBC (Bld) 2.8 % Normal 0.9-7.0 [facility] Comment on above: Performed By: #### T SH, FT3 #### [facility] [address] [place] [address] Dr. Glenny Sneed Erythrocyte distribution width (RBC) [Ratio] 13.5 % Normal 11.0-15.0 [facility] Comment on above: Performed By: #### T SH, FT3 #### [facility] [address] [place] [address] Dr. Glenny Sneed Hematocrit (Bld) [Volume fraction] 40.3 % Normal 36.0-48.0 [facility] Comment on above: Performed By: #### T SH, FT3 #### [facility] [address] [place] [address] Dr. Glenny Sneed Hemoglobin (Bld) [Mass/Vol] 12.9 g/dL Normal 12.0-16.0 [facility] Comment on above: Performed By: #### T SH, FT3 #### [facility] [address] [place] [address] Dr. Glenny Sneed IG # 0.01 10e3/ul Normal 0.00-0.03 [facility] Comment on above: Performed By: #### T SH, FT3 #### [facility] [address] [place] [address] Dr. Glenny Sneed IG % 0.2 % Normal 0.0-0.5 [facility] Comment on above: Performed By: #### T SH, FT3 #### [facility] [address] [place] [address] Dr. Glenny Sneed LYMPH # 2.5 103/ul Normal 1.2-3.8 [facility] Comment on above: Performed By: #### T SH, FT3 #### [facility] [address] [place] [address] Dr. Glenny Sneed Lymphocytes/100 WBC (Bld) 38.2 % Normal 20.5-60.0 [facility] Comment on above: Performed By: #### T SH, FT3 #### [facility] [address] [place] [address] Dr. Glenny Sneed MANUAL DIFF REQ NO Normal [facility] Comment on above: Performed By: #### T SH, FT3 #### [facility] [address] [place] [address] Dr. Glenny Sneed MCH (RBC) [Entitic mass] 27.2 pg Normal 26.7-34.0 [facility] Comment on above: Performed By: #### T SH, FT3 #### [facility] [address] [place] [address] Dr. Glenny Sneed MCHC (RBC) [Mass/Vol] 32.0 g/dL Normal 29.9-35.2 [facility] Comment on above: Performed By: #### T SH, FT3 #### [facility] [address] [place] [address] Dr. Glenny Sneed MCV (RBC) [Entitic vol] 84.8 fL Normal 81.0-99.0 [facility] Comment on above: Performed By: #### T SH, FT3 #### [facility] [address] [place] [address] Dr. Glenny Sneed MONO # 0.6 103/ul Normal 0.3-0.8 [facility] Comment on above: Performed By: #### T ZENAIDA, FT3 #### [facility] [address] [place] [address] Dr. Glenny Sneed Monocytes/100 WBC (Bld) 8.5 % Normal 1.7-12.0 [facility] Comment on above: Performed By: #### T ZENAIDA, FT3 #### [facility] [address] [place] [address] Dr. Glenny Sneed NEUT # 3.2 103/ul Normal 1.4-6.5 [facility] Comment on above: Performed By: #### T ZENAIDA, FT3 #### [facility] [address] [place] [address] Dr. Glenny Sneed Neutrophils/100 WBC (Bld) 49.1 % Normal 43.0-75.0 [facility] Comment on above: Performed By: #### T ZENAIDA, FT3 #### [facility] [address] [place] [address] Dr. Glenyn Sneed Platelet mean volume (Bld) [Entitic vol] 10.2 fL Normal 9.5-13.5 [facility] Comment on above: Performed By: #### T SH, FT3 #### [facility] [address] [place] [address] Dr. Glenny Sneed PLT 350 103/ul Normal 150-450 [facility] Comment on above: Performed By: #### T ZENAIDA, FT3 #### [facility] [address] [place] [address] Dr. Glenny Sneed RBC 4.75 106/ul Normal 4.20-5.40 [facility] Comment on above: Performed By: #### T SH, FT3 #### [facility] [address] [place] [address] Dr. Glenny Sneed WBC 6.5 103/ul Normal 4.0-11.0 [facility] Comment on above: Performed By: #### T SH, FT3 #### [facility] [address] [place] [address] Dr. Glenny Sneed FREE T4on 11-07-2022 Free T4 [Mass/Vol] 1.15 ng/dL Normal 0.76-1.46 [facility] Comment on above: Performed By: #### F T4, VITAD #### [facility] [address] [place] [address] Dr. Glenny Sneed GLYCOHEMOGLOBIN A1Con 2022 ADA RECOMMENDATION SEE BELOW Normal [facility] Comment on above: Result Comment: ADA RECOMMENDED LIMIT 4.0 - 6.0 ADA THERAPEUTIC TARGET < 7.0 ACTION SUGGESTED > 7.0 Performed By: #### A 1C #### [facility] [address] [place] [address] Dr. Glenny Sneed Glucose [Mass/Vol] 120 mg/dL Normal [facility] Comment on above: Performed By: #### A 1C #### [facility] [address] [place] [address] Dr. Glenny Sneed HbA1c (Bld) [Mass fraction] 5.8 % Normal 4.5-6.2 [facility] Comment on above: Performed By: #### A 1C #### [facility] [address] [place] [address] Dr. Glenny Sneed LIPID PROFILEon 11-07-2022 CHOL-HDL RATIO NORM SEE BELOW Normal [facility] Comment on above: Result Comment: 3.3 - 4.4 LOW RISK 4.4 - 7.1 AVERAGE RISK 7.1 - 11.0 MODERATE RISK >11.0 HIGH RISK Performed By: #### L IPID, CMP, TSH #### [facility] [address] [place] [address] [address] Glenny Sneed Cholesterol [Mass/Vol] 185 mg/dL Normal <=200 [facility] Comment on above: Performed By: #### L IPID, CMP, TSH #### [facility] [address] [place] [address] [address] Glenny Sneed Cholesterol in HDL [Mass/Vol] 63 mg/dL Critically high 40-60 [facility] Comment on above: Performed By: #### L IPID, CMP, TSH #### [facility] [address] [place] [address] [address] Glenny Sneed Cholesterol in LDL [Mass/Vol] 87.6 mg/dL Normal [facility] Comment on above: Performed By: #### L IPID, CMP, TSH #### [facility] [address] [place] [address] [address] Glenny Sneed Cholesterol.total/Ch olesterol in HDL [Mass ratio] 2.9 {ratio} Normal [facility] Comment on above: Performed By: #### L IPID, CMP, TSH #### [facility] [address] [place] [address] [address] Glenny Sneed HDL NORMAL > or = 60 mg/dl - LO W CARDIOVASCULAR RISK <40 mg/dl - HIGH CARDIOVASCULAR RISK Normal [facility] Comment on above: Performed By: #### L IPID, CMP, TSH #### [facility] [address] [place] [address] [address] Glenny Sneed LDL CALC NORMAL SEE BELOW Normal [facility] Comment on above: Result Comment: <100 mg/dl OPTIMAL 100 - 129 mg/dl NEAR OR ABOVE OPTIMAL 130 - 159 mg/dl BORDERLINE HIGH 160 - 189 mg/dl HIGH >190 mg/dl VERY HIGH Performed By: #### L IPID, CMP, TSH #### [facility] [address] [place] [address] [address] Glenny Sneed Triglyceride [Mass/Vol] 172 mg/dL Critically high <=150 [facility] Comment on above: Performed By: #### L IPID, CMP, TSH #### [facility] [address] [place] [address] [address] Glenny Sneed VLDL CALC 34.4 mg/dL Normal [facility] Comment on above: Performed By: #### L IPID, CMP, TSH #### [facility] [address] [place] [address] [address] Glenny Sneed PROF 14(COMP METB)on 023 Albumin [Mass/Vol] 4.1 g/dL Normal 3.4-5.0 [facility] Comment on above: Performed By: #### L IPID, CMP, TSH #### [facility] [address] [place] [address] [address] Glenny Sneed Albumin/Globulin [Mass ratio] 1.0 {ratio} Normal [facility] Comment on above: Performed By: #### L IPID, CMP, TSH #### [facility] [address] [place] [address] Dr. Glenny Sneed ALP [Catalytic activity/Vol] 77 U/L Normal 46-116 [facility] Comment on above: Performed By: #### L IPID, CMP, TSH #### [facility] [address] [place] [address] [address] Glenny Sneed ALT [Catalytic activity/Vol] 33 U/L Normal 14-59 [facility] Comment on above: Performed By: #### L IPID, CMP, TSH #### [facility] [address] [place] [address] [address] Glenny Sneed Anion gap [Moles/Vol] 13.1 mmol/L Normal [facility] Comment on above: Performed By: #### L IPID, CMP, TSH #### [facility] [address] [place] [address] [address] Glenny Sneed AST [Catalytic activity/Vol] 22 U/L Normal 15-37 [facility] Comment on above: Performed By: #### L IPID, CMP, TSH #### [facility] [address] [place] [address] [address] Glenny Sneed Bilirubin [Mass/Vol] 0.7 mg/dL Normal 0.2-1.0 [facility] Comment on above: Performed By: #### L IPID, CMP, TSH #### [facility] [address] [address] [address] Glenny Sneed Calcium [Mass/Vol] 10.0 mg/dL Normal 8.5-10.1 [facility] Comment on above: Performed By: #### L IPID, CMP, TSH #### [facility] [address] [place] [address] [address] Glenny Sneed Chloride [Moles/Vol] 102 mmol/L Normal 98-107 [facility] Comment on above: Performed By: #### L IPID, CMP, TSH #### [facility] [address] [place] [address] [address] Glenny Sneed CO2 [Moles/Vol] 29.9 mmol/L Normal 21.0-32.0 [facility] Comment on above: Performed By: #### L IPID, CMP, TSH #### [facility] [address] [place] [address] [address] Glenny Sneed Creatinine [Mass/Vol] 0.66 mg/dL Normal 0.55-1.02 [facility] Comment on above: Performed By: #### L IPID, CMP, TSH #### [facility] [address] [place] [address] [address] Glenny Sneed EGFR-AF LATVIAN >60 Normal >=60 [facility] Comment on above: Performed By: #### L IPID, CMP, TSH #### [facility] [address] [place] [address] Dr. Glenny Sneed EGFR-NON AF LATVIAN >60 Normal >=60 [facility] Comment on above: Performed By: #### L IPID, CMP, TSH #### [facility] [address] [place] [address] [address] Glenny Sneed Globulin (S) [Mass/Vol] 4.0 g/dL Normal [facility] Comment on above: Performed By: #### L IPID, CMP, TSH #### [facility] [address] [address] [address] Glenny Sneed Glucose [Mass/Vol] 106 mg/dL Normal 74-106 [facility] Comment on above: Performed By: #### L IPID, CMP, TSH #### [facility] [address] [place] [address] Dr. Glenny Sneed Potassium [Moles/Vol] 4.0 mmol/L Normal 3.5-5.1 [facility] Comment on above: Performed By: #### L IPID, CMP, TSH #### [facility] [address] [place] [address] Dr. Glenny Sneed Protein [Mass/Vol] 8.1 g/dL Normal 6.4-8.2 [facility] Comment on above: Performed By: #### L IPID, CMP, TSH #### [facility] [address] [place] [address] Dr. Glenny Sneed Sodium [Moles/Vol] 141 mmol/L Normal 136-145 [facility] Comment on above: Performed By: #### L IPID, CMP, TSH #### [facility] [address] [place] [address] Dr. Glenny Sneed Urea nitrogen [Mass/Vol] 9.0 mg/dL Normal 7.0-18.0 [facility] Comment on above: Performed By: #### L IPID, CMP, TSH #### [facility] [address] [place] [address] Dr. Glenny Sneed Urea nitrogen/Creatinine [Mass ratio] 13.6 mg/mg Normal [facility] Comment on above: Performed By: #### L IPID, CMP, TSH #### [facility] [address] [place] [address] Dr. Glenny Sneed TSHon 11-07-2022 TSH 2.008 uIU/mL Normal 0.358-3.740 [facility] Comment on above: Performed By: #### L IPID, CMP, TSH #### [facility] [address] [place] [address] Dr. Glenny Sneed UA RANDOM W/MICROSCOPICon BACTERIA NONE SEEN Normal NONE SEEN [facility] Comment on above: Performed By: #### U AMIC #### [facility] [address] [address] [address] Glenny Sneed Bilirubin Ql (U) Negative Normal NEGATIVE [facility] Comment on above: Performed By: #### U AMIC #### [facility] [address] [address] [address] Glenny Sneed CAST NONE SEEN Normal NONE SEEN [facility] Comment on above: Performed By: #### U AMIC #### [facility] [address] [address] [address] Glenny Sneed Clarity (U) CLEAR Normal CLEAR [facility] Comment on above: Performed By: #### U AMIC #### [facility] [address] [address] [address] Glenny Sneed Color (U) LT. YELLOW Normal YELLOW [facility] Comment on above: Performed By: #### U AMIC #### [facility] [address] [place] [address] Dr. Glenny Sneed Crystals LM Nom (Urine sed) NONE SEEN Normal NONE SEEN [facility] Comment on above: Performed By: #### U AMIC #### [facility] [address] [address] [address] Glenny Sneed Epithelial cells LM Ql (Urine sed) NONE SEEN Normal NONE SEEN /RARE [facility] Comment on above: Performed By: #### U AMIC #### [facility] [address] [place] [address] Dr. Glenny Sneed Glucose Ql (U) Negative Normal NEGATIVE [facility] Comment on above: Performed By: #### U AMIC #### [facility] [address] [address] [address] Glenny Sneed Hemoglobin Ql (U) TRACE-INTACT Abnormal NEGATIVE [facility] Comment on above: Performed By: #### U AMIC #### [facility] [address] [place] [address] Dr. Glenny Sneed Ketones Ql (U) Negative Normal NEGATIVE [facility] Comment on above: Performed By: #### U AMIC #### [facility] [address] [address] [address] Glenny Sneed LEUKOCYTES Negative Normal NEGATIVE [facility] Comment on above: Performed By: #### U AMIC #### [facility] [address] [place] [address] Dr. Glenny Sneed MUCOUS NONE SEEN Normal NONE SEEN [facility] Comment on above: Performed By: #### U AMIC #### [facility] [address] [address] [address] Glenny Sneed Nitrite Ql (U) Negative Normal NEGATIVE [facility] Comment on above: Performed By: #### U AMIC #### [facility] [address] [place] [address] Dr. Glenny Sneed pH (U) 6.5 [pH] Normal 5-9 [facility] Comment on above: Performed By: #### U AMIC #### [facility] [address] [place] [address] Dr. Glenny Sneed RBC 0-2 Normal 0-2 [facility] Comment on above: Performed By: #### U AMIC #### [facility] [address] [place] [address] Dr. Glenny Sneed SPEC GRAVITY <=1.005 Abnormal 1.005-<=1.025 [facility] Comment on above: Performed By: #### U AMIC #### [facility] [address] [place] [address] Dr. Glenny Sneed UA PROTEIN Negative Normal NEGATIVE/ TRACE [facility] Comment on above: Performed By: #### U AMIC #### [facility] [address] [place] [address] Dr. Glenny Sneed Urobilinogen Qn (U) 0.2 {Justice'U}/dL Normal 0.2 - 1. 0 [facility] Comment on above: Performed By: #### U AMIC #### [facility] [address] [place] [address] Dr. Glenny Sneed WBC NONE SEEN Normal NONE SEEN [facility] Comment on above: Performed By: #### U AMIC #### [facility] [address] [place] [address] Dr. Glenny Sneed VITAMIN D 25 OHon 11-07-2022 VIT D 25-OH 35.2 ng/mL Normal [facility] Comment on above: Performed By: #### F T4, VITAD #### [facility] [address] [place] [address] Dr. Glenny Sneed VIT D RANGES SEE BELOW Normal [facility] Comment on above: Result Comment: <20 ng/mL Vit D deficient 20 - <30 ng/mL Vit D insufficient 30 - 100 ng/mL Vit D sufficient >100 ng/mL Potential Toxicity Performed By: #### F T4, VITAD #### [facility] [address] [place] [address] Dr. Glenny Sneed HEPATITIS C ANTIBODYon 05-10 Hep C Virus Ab <0.1 Normal 0.0-0.9 [facility] Comment on above: Result Comment: Nega [...] Hepatitis C Virus (HCV) RNA, Diagnosis, CORTES (324610) and Hepatitis C Virus (HCV) Antibody with reflex to Quantitative Real-time PCR ([id number]). Performed By: #### T SH, FT3 #### [facility] [address] [place] [address] Dr. Glenny Sneed LIPID PROFILEon 05-08-2022 CHOL-HDL RATIO NORM SEE BELOW Normal [facility] Comment on above: Result Comment: 3.3 - 4.4 LOW RISK 4.4 - 7.1 AVERAGE RISK 7.1 - 11.0 MODERATE RISK >11.0 HIGH RISK Performed By: #### T SH, FT3 #### [facility] [address] [place] [address] Dr. Glenny Sneed Cholesterol [Mass/Vol] 173 mg/dL Normal <=200 [facility] Comment on above: Performed By: #### T SH, FT3 #### [facility] [address] [place] [address] Dr. Glenny Sneed Cholesterol in HDL [Mass/Vol] 67 mg/dL Critically high 40-60 [facility] Comment on above: Performed By: #### T SH, FT3 #### [facility] [address] [place] [address] Dr. Glenny Sneed Cholesterol in LDL [Mass/Vol] 77.8 mg/dL Normal [facility] Comment on above: Performed By: #### T SH, FT3 #### [facility] [address] [place] [address] Dr. Glenny Sneed Cholesterol.total/Ch olesterol in HDL [Mass ratio] 2.6 {ratio} Normal [facility] Comment on above: Performed By: #### T SH, FT3 #### [facility] [address] [place] [address] Dr. Glenny Sneed HDL NORMAL > or = 60 mg/dl - LO W CARDIOVASCULAR RISK <40 mg/dl - HIGH CARDIOVASCULAR RISK Normal [facility] Comment on above: Performed By: #### T SH, FT3 #### [facility] [address] [place] [address] Dr. Glenny Sneed LDL CALC NORMAL SEE BELOW Normal [facility] Comment on above: Result Comment: <100 mg/dl OPTIMAL 100 - 129 mg/dl NEAR OR ABOVE OPTIMAL 130 - 159 mg/dl BORDERLINE HIGH 160 - 189 mg/dl HIGH >190 mg/dl VERY HIGH Performed By: #### T SH, FT3 #### [facility] [address] [place] [address] Dr. Glenny Sneed Triglyceride [Mass/Vol] 141 mg/dL Normal <=150 [facility] Comment on above: Performed By: #### T SH, FT3 #### [facility] [address] [place] [address] Dr. Glenny Sneed VLDL CALC 28.2 mg/dL Normal [facility] Comment on above: Performed By: #### T SH, FT3 #### [facility] [address] [place] [address] Dr. Glenny Sneed LIVER PROFILEon 05-08-2022 Albumin [Mass/Vol] 4.0 g/dL Normal 3.4-5.0 [facility] Comment on above: Performed By: #### T SH, FT3 #### [facility] [address] [place] [address] Dr. Glenny Sneed Albumin/Globulin [Mass ratio] 1.0 {ratio} Normal [facility] Comment on above: Performed By: #### T SH, FT3 #### [facility] [address] [place] [address] Dr. Glenny Sneed ALP [Catalytic activity/Vol] 77 U/L Normal 46-116 [facility] Comment on above: Performed By: #### T SH, FT3 #### [facility] [address] [place] [address] Dr. Glenny Sneed ALT [Catalytic activity/Vol] 39 U/L Normal 14-59 [facility] Comment on above: Performed By: #### T SH, FT3 #### [facility] [address] [place] [address] Dr. Glenny Sneed AST [Catalytic activity/Vol] 20 U/L Normal 15-37 [facility] Comment on above: Performed By: #### T SH, FT3 #### [facility] [address] [place] [address] Dr. Glenny Sneed BILI, CONJUGATED 0.1 mg/dL Normal 0.0-0.2 [facility] Comment on above: Performed By: #### T SH, FT3 #### [facility] [address] [place] [address] Dr. Glenny Sneed Bilirubin [Mass/Vol] 0.7 mg/dL Normal 0.2-1.0 [facility] Comment on above: Performed By: #### T SH, FT3 #### [facility] [address] [place] [address] Dr. Glenny Sneed Globulin (S) [Mass/Vol] 4.0 g/dL Normal [facility] Comment on above: Performed By: #### T SH, FT3 #### [facility] [address] [place] [address] Dr. Glenny Sneed Protein [Mass/Vol] 8.0 g/dL Normal 6.4-8.2 [facility] Comment on above: Performed By: #### T SH, FT3 #### [facility] [address] [place] [address] Dr. Glenny Sneed LIVER PROFILEon 02-13-2022 Albumin [Mass/Vol] 3.9 g/dL Normal 3.4-5.0 [facility] Comment on above: Performed By: #### T ZENAIDA, FT3 #### [facility] [address] [place] [address] Dr. Glenny Sneed Albumin/Globulin [Mass ratio] 1.0 {ratio} Normal [facility] Comment on above: Performed By: #### T ZENAIDA, FT3 #### [facility] [address] [place] [address] Dr. Glenny Sneed ALP [Catalytic activity/Vol] 112 U/L Normal 46-116 [facility] Comment on above: Performed By: #### T ZENAIDA, FT3 #### [facility] [address] [place] [address] Dr. Glenny Sneed ALT [Catalytic activity/Vol] 50 U/L Normal 14-59 [facility] Comment on above: Performed By: #### T ZENAIDA, FT3 #### [facility] [address] [place] [address] Dr. Glenny Sneed AST [Catalytic activity/Vol] 25 U/L Normal 15-37 [facility] Comment on above: Performed By: #### T ZENAIDA, FT3 #### [facility] [address] [place] [address] Dr. Glenny Sneed BILI, CONJUGATED 0.2 mg/dL Normal 0.0-0.2 [facility] Comment on above: Performed By: #### T ZENAIDA, FT3 #### [facility] [address] [place] [address] Dr. Glenny Sneed Bilirubin [Mass/Vol] 0.7 mg/dL Normal 0.2-1.0 [facility] Comment on above: Performed By: #### T ZENAIDA, FT3 #### [facility] [address] [place] [address] Dr. Glenny Sneed Globulin (S) [Mass/Vol] 4.0 g/dL Normal [facility] Comment on above: Performed By: #### T SH, FT3 #### [facility] [address] [place] [address] Dr. Glenny Sneed Protein [Mass/Vol] 7.9 g/dL Normal 6.4-8.2 [facility] Comment on above: Performed By: #### T SH, FT3 #### [facility] [address] [place] [address] Dr. Glenny Sneed SGOTon 01-23-2022 AST [Catalytic activity/Vol] 41 U/L Critically high 15-37 [facility] Comment on above: Performed By: #### T ZENAIDA, FT3 #### [facility] [address] [place] [address] Dr. Glenny Sneed SGPTon 01-23-2022 ALT [Catalytic activity/Vol] 85 U/L Critically high 14-59 [facility] Comment on above: Performed By: #### T SH, FT3 #### [facility] [address] [place] [address] Dr. Glenny Sneed LIPID PROFILEon 01-07-2022 CHOL-HDL RATIO NORM SEE BELOW Normal [facility] Comment on above: Result Comment: 3.3 - 4.4 LOW RISK 4.4 - 7.1 AVERAGE RISK 7.1 - 11.0 MODERATE RISK >11.0 HIGH RISK Performed By: #### T ZENAIDA, FT3 #### [facility] [address] [place] [address] Dr. Glenny Sneed Cholesterol [Mass/Vol] 144 mg/dL Normal <=200 [facility] Comment on above: Performed By: #### T SH, FT3 #### [facility] [address] [place] [address] Dr. Glenny Sneed Cholesterol in HDL [Mass/Vol] 63 mg/dL Critically high 40-60 [facility] Comment on above: Performed By: #### T SH, FT3 #### [facility] [address] [place] [address] Dr. Glenny Sneed Cholesterol in LDL [Mass/Vol] 56.2 mg/dL Normal [facility] Comment on above: Performed By: #### T SH, FT3 #### [facility] [address] [place] [address] Dr. Glenny Sneed Cholesterol.total/Ch olesterol in HDL [Mass ratio] 2.3 {ratio} Normal [facility] Comment on above: Performed By: #### T SH, FT3 #### [facility] [address] [address] [address] Glenny Sneed HDL NORMAL > or = 60 mg/dl - LO W CARDIOVASCULAR RISK <40 mg/dl - HIGH CARDIOVASCULAR RISK Normal [facility] Comment on above: Performed By: #### T SH, FT3 #### [facility] [address] [place] [address] Dr. Glenny Sneed LDL CALC NORMAL SEE BELOW Normal [facility] Comment on above: Result Comment: <100 mg/dl OPTIMAL 100 - 129 mg/dl NEAR OR ABOVE OPTIMAL 130 - 159 mg/dl BORDERLINE HIGH 160 - 189 mg/dl HIGH >190 mg/dl VERY HIGH Performed By: #### T SH, FT3 #### [facility] [address] [place] [address] Dr. Glenny Sneed Triglyceride [Mass/Vol] 124 mg/dL Normal <=150 [facility] Comment on above: Performed By: #### T SH, FT3 #### [facility] [address] [place] [address] Dr. Glenny Sneed VLDL CALC 24.8 mg/dL Normal [facility] Comment on above: Performed By: #### T SH, FT3 #### [facility] [address] [place] [address] Dr. Glenny Holden 01-07-2022 AST [Catalytic activity/Vol] 53 U/L Critically high 15-37 [facility] Comment on above: Performed By: #### T SH, FT3 #### [facility] [address] [place] [address] Dr. Glenny Kim 01-07-2022 ALT [Catalytic activity/Vol] 108 U/L Critically high 14-59 [facility] Comment on above: Performed By: #### T , FT3 #### [facility] [address] [address] [address] Glenny Sneed Vital Signs Date Time Vital Sign Value Performing Clinician Hernandez murphy 11-05-2023 09:44-0500 Body height 154.9 cm Pamelamaria elena Moore REHABILITATION SERVICES DIRECTOR Work Phone: [facility] 11-05-2023 09:44-0500 Body mass index (BMI) [Ratio] 30 kg/m2 Pamela Oscar REHABILITATION SERVICES DIRECTOR Work Phone: [facility] 11-05-2023 09:44-0500 Body temperature 97.5 [degF] Pamela Oscar REHABILITATION SERVICES DIRECTOR Work Phone: [facility] 11-05-2023 09:44-0500 Body weight 72.03 kg Pamela Tavohsarahz REHABILITATION SERVICES DIRECTOR Work Phone: [facility] 11-05-2023 09:44-0500 Diastolic blood pressure 68 mm[Hg] Pamela Tavohsarahz REHABILITATION SERVICES DIRECTOR Work Phone: [facility] 11-05-2023 09:44-0500 Heart rate 61 /min Pamela Tavohsarahz REHABILITATION SERVICES DIRECTOR Work Phone: [facility] 11-05-2023 09:44-0500 Respiratory rate 18 /min Pamela Aichholz REHABILITATION SERVICES DIRECTOR Work Phone: [facility] 11-05-2023 09:44-0500 SaO2% (BldA) [Mass fraction] 98 % Pamela Tavohsarahz REHABILITATION SERVICES DIRECTOR Work Phone: [facility] 11-05-2023 09:44-0500 Systolic blood pressure 138 mm[Hg] Pamela Aichholz REHABILITATION SERVICES DIRECTOR Work Phone: [facility] Encounters Encounter Date Encounter Type Care Provider Facility Start: 12-15-2023 End: 12-22-2023 ambulatory PAMELA MOORE [facility] Start: 12-11-2023 End: 12-11-2023 ambulatory Braxton Escalante Facility:[facility] Start: 12-11-2023 End: 12-11-2023 ambulatory MD Jorge Goncalves Work Phone: [facility] Work Phone: Start: 12-11-2023 End: 12-11-2023 Patient encounter procedure MD Jorge Goncalves Work Phone: [facility] Work Phone: Start: 11-05-2023 Bamboo flowsheet Pamela Aichholz REHABILITATION SERVICES DIRECTOR Work Phone: [facility] Start: 11-05-2023 Bamboo flowsheet Pamela Aichholz REHABILITATION SERVICES DIRECTOR Work Phone: [facility] Start: 11-05-2023 End: 11-05-2023 ambulatory PAMELA AICHHOLZ Not Available Start: 11-05-2023 End: 11-05-2023 Office outpatient visit 25 minutes Pamela Aichsarahz REHABILITATION SERVICES DIRECTOR Work Phone: [facility] Comment on above: Gastroesophageal ref lux disease, unspecified whether esophagitis present (Primary Dx); Age related osteoporosis, unspecified pathological fracture presence (CMS/HCC); Vitamin D deficiency; Pre-diabetes; Hypothyroidism (acquired) (CMS/HCC); Mixed hyperlipidemia (CMS/[facility]); Encounter for screening mammogram for malignant neoplasm of breast; BMI 30.0-30.9,adult; Chronic left shoulder pain Start: 09-17-2023 End: 09-17-2023 ambulatory PAMELA AICHHOLZ Not Available Start: 02-20-2023 ambulatory JORGE GONCALVES Facility :[facility] Start: 01-03-2023 End: 01-04-2023 ambulatory CONSTRUCTION SALES REPRESENTATIVE PAMELA AICHSARAHZ Facility:[facility] Start: 12-16-2022 End: 12-17-2022 ambulatory CONSTRUCTION SALES REPRESENTATIVE PAMELA AICHHOLZ Facility:[facility] Start: 11-07-2022 End: 11-08-2022 ambulatory CONSTRUCTION SALES REPRESENTATIVE PAMELA AICHHOLZ Facility:[facility] Start: 05-08-2022 End: 05-09-2022 ambulatory CONSTRUCTION SALES REPRESENTATIVE PAMELA AICHHOLZ Facility:[facility] Start: 02-13-2022 End: 02-14-2022 ambulatory CONSTRUCTION SALES REPRESENTATIVE PAMELA TAVOSamuelSARAHYamile Facility:[facility] Start: 01-23-2022 End: 01-24-2022 ambulatory CONSTRUCTION SALES REPRESENTATIVE PAMELA HIGHTOWERSARAHYamile Facility:[facility] Start: 01-07-2022 End: 01-08-2022 ambulatory CONSTRUCTION SALES REPRESENTATIVE PAMELA HIGHTOWERSARAHYamile Facility:[facility] Procedures Date Procedure Procedure Detail Performing Clinician Start: 12-11-2023 Plain X-ray of left shoulder MD Jorge Goncalves Work Phone: Start: 05-23-2021 Colonoscopy Pamela Voflex dora REHABILITATION SERVICES DIRECTOR Work Phone: Plan of Treatment Date Care Activity Detail Author Start: 05-23-2031 Screening for malignant neoplasm of colon [facility] Start: 05-08-2024 Medicare Annual Wellness (AWV) Medicare Annual Wellness (AWV) [facility] Start: 03-08-2024 End: 03-08-2024 Patient encounter procedure 03/08/2024 9:40 AM EDT Office Visit [facility] [address] [place] [address] Pamela Moore, MARIKA [address] [place] [address] [facility] Start: 01-05-2024 End: 01-03-2025 MG Breast - bilateral Screening Bilateral screening mammogram Imaging Routine Encounter for screening mammogram for malignant neoplasm of breast Expected: 01/05/2024 (Approximate), Expires: 01/03/2025 [facility] Comment on above: Expected: 01/05/2024 (Approximate), Expi res: 01/03/2025 Start: 12-11-2023 Plain X-ray of left shoulder XR shoulder LT min 2V* [facility] Start: 12-11-2023 XR Shoulder - left Views [facility] Start: 11-05-2023 End: 11-05-2024 25-hydroxyvitamin D3 [Mass/volume] in Serum or Plasma Vitamin D 25 hydroxy Lab Routine Vitamin D deficiency Expected: 11/05/2023 (Approximate), Expires: 11/05/2024 [facility] Comment on above: Expected: 11/05/2023 (Approximate), Expi res: 11/05/2024 Start: 11-05-2023 End: 11-05-2024 CBC W Auto Differential panel - Blood CBC and differential Lab Routine Gastroesophageal reflux disease, unspecified whether esophagitis present Expected: 11/05/2023 (Approximate), Expires: 11/05/2024 [facility] Work Phone: Comment on above: Expected: 11/05/2023 (Approximate), Expi res: 11/05/2024 Start: 11-05-2023 End: 11-05-2024 Comprehensive metabolic 2000 panel - Serum or Plasma Comprehensive metabolic panel Lab Routine Gastroesophageal reflux disease, unspecified whether esophagitis present Age related osteoporosis, unspecified pathological fracture presence (CMS/HCC) Vitamin D deficiency Pre-diabetes Mixed hyperlipidemia (CMS/HCC) Expected: 11/05/2023 (Approximate), Expires: 11/05/2024 [facility] Comment on above: Expected: 11/05/2023 (Approximate), Expi res: 11/05/2024 Start: 11-05-2023 End: 11-05-2024 DXA Skeletal system Views for bone density DEXA bone density Imaging Routine Age related osteoporosis, unspecified pathological fracture presence (CMS/HCC) Expected: 11/05/2023 (Approximate), Expires: 11/05/2024 [facility] Comment on above: Expected: 11/05/2023 (Approximate), Expi res: 11/05/2024 Start: 11-05-2023 End: 11-05-2024 Hemoglobin A1c measurement Hemoglobin A1c Lab Routine Pre-diabetes Expected: 11/05/2023 (Approximate), Expires: 11/05/2024 [facility] Comment on above: Expected: 11/05/2023 (Approximate), Expi res: 11/05/2024 Start: 11-05-2023 End: 11-05-2024 Lipid 1996 panel - Serum or Plasma Lipid panel Lab Routine Pre-diabetes Hypothyroidism (acquired) (CMS/HCC) Mixed hyperlipidemia (CMS/HCC) Expected: 11/05/2023 (Approximate), Expires: 11/05/2024 [facility] Comment on above: Expected: 11/05/2023 (Approximate), Expi res: 11/05/2024 Start: 11-05-2023 End: 11-05-2024 Microalbumin/Creatinine panel in random Urine Microalbumin / creatinine, urine ratio Lab Routine Pre-diabetes Expected: 11/05/2023 (Approximate), Expires: 11/05/2024 [facility] Comment on above: Expected: 11/05/2023 (Approximate), Expi res: 11/05/2024 Start: 11-05-2023 End: 11-05-2024 Urinalysis complete panel - Urine Urinalysis with reflex microscopic (clean catch) Lab Routine Pre-diabetes Expected: 11/05/2023 (Approximate), Expires: 11/05/2024 [facility] Comment on above: Expected: 11/05/2023 (Approximate), Expi res: 11/05/2024 Start: 11-05-2023 End: 11-05-2023 Patient encounter procedure 11/05/2023 9:40 AM EST Office Visit [facility] [address] [place] [address] Pamela Moore, REHABILITATION SERVICES DIRECTOR [address] [place] [address] Gastroesophageal reflux disease, unspecified whether esophagitis present (Primary Dx); Age related osteoporosis, unspecified pathological fracture presence (CMS/HCC); Vitamin D deficiency; Pre-diabetes; Hypothyroidism (acquired) (CMS/HCC); Mixed hyperlipidemia (CMS/HCC); Encounter for screening mammogram for malignant neoplasm of breast [facility] Comment on above: Gastroesophageal reflux disease, unspeci fied whether esophagitis present (Primary Dx); Age related osteoporosis, unspecified pathological fracture presence (CMS/HCC); Vitamin D deficiency; Pre-diabetes; Hypothyroidism (acquired) (CMS/HCC); Mixed hyperlipidemia (CMS/HCC); Encounter for screening mammogram for malignant neoplasm of breast Start: 05-23-2023 Influenza vaccination Influenza Vaccine (#1) [facility] Start: 2012 Pneumococcal Vaccine: 65+ Years (1 - PCV) Pneumococcal Vaccine: 65+ Years (1 - PCV) [facility] Start: 1945 Screening for malignant neoplasm of colon [facility] Payers Date Payer Category Payer Self-pay [id number] 2021 Medicare [employer] MEDICARE ADVANTAGE [facility] MEDICARE ADVANTAGE [id number] 2021-Present [address] [place] [address] [id number] 1959 Unknown [id number] 1947 Unknown [id number] 93 1947 Unknown [id number] 93 1947 Unknown [id number] [id number] 93 1947 Unknown [id number] [id number] 93 1947 Unknown [id number] [id number] 93 1947 Unknown [id number] [id number] 93 1947 Unknown [id number] [id number] 93 1947 Unknown [id number] 2.16.840.1.857897.3.579.2.7 18 1947 Unknown [id number] 2.16.840.1.251925.3.579.2.1 259 1947 Unknown [id number] [id number] 259 1947 Unknown [id number] [id number] 286 Medicaid Medicaid [id number] Medicare Medicare [id number] Unknown [id number] 31 Worker's Compensation [id number] Social History Date Type Detail Facility Start: 10-04-2021 End: 01-31-2023 Tobacco smoking status NHIS Never smoked tobacco [facility] Start: 01-31-2023 Tobacco use and exposure Smokeless tobacco non-user [facility] Start: 11-05-2023 Alcohol intake Ex-drinker (finding) [facility] Start: 09-17-2023 End: 11-05-2023 History of Social function [facility] Start: 09-17-2023 End: 11-05-2023 Tobacco use panel [facility] Start: 03-15-2023 Alcohol Comment Caffeine Intak e: more then 4 cups/day [facility] Start: 1945 Sex Assigned At Not on file [facility] Start: 1945 Sex Assigned At Female F [facility] History of Present illness Narrative 11-05-2023 Pamela Moore NP - 11/05/2023 10:46 AM Donell Moore NP - 11/05/2023 10:45 AM Donell Moore NP - 11/05/2023 10:45 AM Donell Moore NP - 11/05/2023 10:44 AM EST Note Date & Type Note Facility 11-05-2023 History of Presen t illness Narrative Associated Problem(s): Chronic left shoulder pain Will refer to Dr De La Fuente in [place] per pt request Associated Problem(s): Encounter for [...] Surgical History: Procedure Laterality Date BACK SURGERY 1983 CARPAL TUNNEL RELEASE 2013 SECTION, LOW TRANSVERSE 1970, 1973 KNEE SURGERY Arthroscopy x3 TOTAL KNEE [...] refer to Dr De La Fuente in [place] per pt request Relevant Orders Ambulatory referral to Orthopaedic Surgery documented in this encounter [facility] Evaluation note Note Date & Type [...] region documented in this encounter [facility] Evaluation note Note Date & Type Note Facility Evaluation note Diagnosis Onset Date Primary osteoarthritis of left shoulder acute [facility] Work Phone: Reason for referral (narrative) Consultation (Routine) - Pending Review Note Date & Type Note Facility Reason for referral (narrati ve) Specialty Diagnoses / Procedures Referred By Lisa morgan Referred To Contact Orthopaedic Surgery Diagnoses Chronic left shoulder pain Pamela Moore NP [address] [place] [address] Ziggy De La Fuente MD [address] [place] [address] Referral ID Status Reason Start Date Expiration Date Visits Requested Visits Authorized [id number] Pending Review Specialty Services Required 11/05/2023 05/03/2024 1 1 [facility] Summary Purpose Family History No Family History Records Found Relationship Condition Age at Onset Recorded Date/T sweetie father Heart disease Unknown Not Specified Heart disease Unknown Diabetes mellitus Unknown Advance Directives No Advanced Directives Records Found Advance Directive Response Recorded Date/ Time Advance Directives Yes June 26, 2017 8:59am Chief Complaint and Reason for Visit Chief Complaint CONSULT PAMELA Ovalle LT CHRONIC SHOULDER PAIN, NX M25.512 - Pain in left shoulder Reason for Visit Primary osteoarthrit is of left shoulder Additional Source Comments INFORMATION SOURCE (unrecogn ized section and content) DATE CREATED AUTHOR 01/06/2023 [facility] DATE CREATED AUTHOR AUTHOR'S ORGANIZ ATION 02/28/2023 [facility] DATE CREATED AUTHOR AUTHOR'S ORGANIZ ATION 11/06/2023 [facility] EPIC DATE CREATED AUTHOR AUTHOR'S ORGANIZ ATION 12/14/2023 [facility] DATE CREATED AUTHOR AUTHOR'S ORGANIZ ATION 12/22/2023 [facility] Care Teams (unrecognized sec tion and content) Credentialing Coordinator Relationship Specialty Start Date End Date Jorge Goncalves MD [address] [place] [id number] PCP - General Family Medicine 11/05/23 Credentialing Coordinator Relationship Specialty Start Date End Date Jorge Goncalves MD [address] [place] [phone] PCP - General Family Medicine 11/05/23 Team Status: Active Member Role Status Dates Jorge Goncalves MD Primary Care Provider Active Team Status: Inactive Member Role Status Dates Jorge Goncalves MD Primary Care Provider Active S tart: December 11, 2023 End: December 11, 2023 Braxton Escalante DO Attending Provider Active St art: December 11, 2023 End: December 11, 2023 Team Status: Active Member Role Status Dates Jorge Goncalves MD Primary Care Provider Active S tart: December 11, 2023 Braxton Escalante DO Attending Provider Active St art: December 11, 2023 Goals (unrecognized section and content) Goals may be documented in a n alternate sectionGoals may be documented in an alternate section FOR RECORDS PERTAINING TO PATIENTS WHO ARE [...] BE BASED ON THE PRIMARY CLINICAL RECORDS. [facility]. provides no warranty or guarantee of the accuracy or completeness of information in this document.
[2023-12-22 10:57] LABS: Thyroid Stimulating Hormone 4.731 uIU/mL (0.358-3.740)
[2023-12-22 12:11] LABS: Free T4 1.04 ng/dL (0.76-1.46)
== END 2023-12-22 10:00 | disposition home or self-care (01) ==
LOC: LAB 10:02
PROVIDERS: PCP Nurse Practitioner; Visit Provider Nurse Practitioner
DX: E03.9 Hypothyroidism, unspecified (principal)
CPT/HCPCS: 36415; 84439; 84443

== ENCOUNTER 2024-01-05 08:03 | Outpatient (OUT) | payer MEDICARE, SELFPAY ==
--- NOTE | 2024-01-05 08:06 | XR_ITS ---
[address] [address] Patient Name: BERNARD PONCE MRN: [id number] date: 1945 Sex: F Assigned Patient Location: [facility] Current Patient Location: [facility] Accession/Order Number: [id number] Exam Date: 01/05/2024 08:17 Report Date: 01/05/2024 08:46 At the request of: LOS RICE Procedure: XR DEXA axial skeleton EXAMINATION: XR DEXA axial skeleton, 01/05/2024 8:17 AM EDT HISTORY: Age Related Osteoporosis M81.0 COMPARISON: 2020, 2018, 2014 TECHNIQUE: Dual-energy X-ray absorptiometry (DEXA) bone density study performed for the axial skeleton. HISTORY: Age Related Osteoporosis M81.0 FINDINGS: Bone mineral density of the left forearm radius is 0.596 g/sq cm. T score -1.6. WHO Classification: Osteopenia. Total femoral bone mineral density 0.906 g/sq cm. T score -0.8. WHO classification: Normal XR/XR DEXA axial skeleton IMPRESSION: Osteopenia. Moderate fracture risk. Electronically authenticated by: WEST MARTINEZ Date: 01/05/2024 08:46
--- NOTE | 2024-01-05 08:06 | MM_ITS ---
Patient Name: BERNARD PONCE MR#: [id number] : 1945 Exam Date: 01/05/2024 Ordering Doctor: COCO Moore CNP RADIOLOGY REPORT PROCEDURE: MM TOMOSYNTHESIS SCREENING BI COMPARISON: MG MAMM SCREEN 3D DAVID CAD, 09/27/2021. MG MAMM SCREEN 3D DAVID CAD, 01/03/2023. INDICATIONS: Screening Calculator Name NCI Breast Cancer Risk Assessment Tool 5 Year Breast Cancer Risk 1.00% Lifetime Breast Cancer Risk 2.10% Personal Breast Cancer No Personal Ovarian Cancer No Treatments None Family Cancers Aunt-maternal with breast cancer at age 60. LOCATION: [facility] BREAST COMPOSITION: Scattered areas fibroglandular density. FINDINGS: DIAGNOSTIC CATEGORY 2--BENIGN FINDING. NO CHANGE FROM COMPARISON. Scattered benign-appearing calcifications are present. Scattered benign-appearing lymph nodes are present. RIGHT BREAST: No significant suspicious finding. LEFT BREAST: No significant suspicious finding. RECOMMENDATIONS: ROUTINE MAMMOGRAM AND CLINICAL EVALUATION IN 12 MONTHS. PLEASE NOTE: A NORMAL MAMMOGRAM DOES NOT EXCLUDE THE POSSIBILITY OF BREAST CANCER. A CLINICALLY SUSPICIOUS PALPABLE LUMP SHOULD BE BIOPSIED. Dictated by: Jermaine Rosenberg MD on 01/05/2024 at 10:28 Approved by: Jermaine Rosenberg MD on 01/05/2024 at 10:30
--- OUTSIDE RECORDS SUMMARY | 2024-01-05 08:21 | XMS_ITS | CCD ---
Author Organization [facility] Care Team Providers Care Male Infertility Specialist Name Role Phone AICHHOLZ, EXTRUDING PRESS ADJUSTER PAMELA Admitting Unavailable AICHHOLZ, EXTRUDING PRESS ADJUSTER PAMELA Attending Unavailable AICHHOLZ, EXTRUDING PRESS ADJUSTER PAMELA Primary Care Unavailable AICHHOLZ, EXTRUDING PRESS ADJUSTER PAMELA Consulting Unavailable AICHHOLZ, EXTRUDING PRESS ADJUSTER PAMELA Admitting Unavailable AICHHOLZ, EXTRUDING PRESS ADJUSTER PAMELA Attending Unavailable AICHHOLZ, EXTRUDING PRESS ADJUSTER PAMELA Primary Care Unavailable AICHHOLZ, EXTRUDING PRESS ADJUSTER PAMELA Consulting Unavailable AICHHOLZ, EXTRUDING PRESS ADJUSTER PAMELA Admitting Unavailable AICHHOLZ, EXTRUDING PRESS ADJUSTER PAMELA Attending Unavailable AICHHOLZ, EXTRUDING PRESS ADJUSTER PAMELA Primary Care Unavailable AICHHOLZ, EXTRUDING PRESS ADJUSTER PAMELA Consulting Unavailable AICHHOLZ, EXTRUDING PRESS ADJUSTER PAMELA Admitting Unavailable AICHHOLZ, EXTRUDING PRESS ADJUSTER PAMELA Attending Unavailable AICHHOLZ, EXTRUDING PRESS ADJUSTER PAMELA Primary Care Unavailable AICHHOLZ, EXTRUDING PRESS ADJUSTER PAMELA Consulting Unavailable AICHHOLZ, EXTRUDING PRESS ADJUSTER PAMELA Admitting Unavailable AICHHOLZ, EXTRUDING PRESS ADJUSTER PAMELA Attending Unavailable AICHHOLZ, EXTRUDING PRESS ADJUSTER PAMELA Primary Care Unavailable AICHHOLZ, EXTRUDING PRESS ADJUSTER PAMELA Consulting Unavailable AICHHOLZ, EXTRUDING PRESS ADJUSTER PAMELA Admitting Unavailable AICHHOLZ, EXTRUDING PRESS ADJUSTER PAMELA Attending Unavailable AICHHOLZ, EXTRUDING PRESS ADJUSTER PAMELA Primary Care Unavailable AICHHOLZ, EXTRUDING PRESS ADJUSTER PAMELA Consulting Unavailable AICHHOLZ, EXTRUDING PRESS ADJUSTER PAMELA Admitting Unavailable AICHHOLZ, EXTRUDING PRESS ADJUSTER PAMELA Attending Unavailable AICHHOLZ, EXTRUDING PRESS ADJUSTER PAMELA Primary Care Unavailable AICHHOLZ, EXTRUDING PRESS ADJUSTER PAMELA Consulting Unavailable JORGE GONCALVES Primary Care Unavailable aTb Ibarra Admitting Unavail able Tab Ibarra Attending Unavail able Jorge Goncalves MD Primary Care Provider [phone] AICHHOLZ, PAMELA Attending Unavailable AICHHOLZ, PAMELA Attending Unavailable AICHHOLZ, PAMELA Referring Unavailable MD Jorge Goncalves Primary Care Provider DO Braxton Escalante Attending Provider Braxton Escalante Admitting Unavailable Braxton Escalante Attending Unavailable Jorge Goncalves Primary Care Unavailable PAMELA MOORE Primary Care Unavailable BRAXTON ESCALANTE Referring Unavailable BRAXTON ESCALANTE Referring Unavailable PAMELA MOORE Primary Care Unavailable Allergies Allergy Classification Reported Allergen(s) Allergy Type Date of Onset Reaction(s) Facility (2 sources) Ampicillin; Translations: [AMPICILLIN] Drug Allergy 02-10-2012 [facility] Repository (3 sources) Ampicillin Drug Allergy 02-18-2023 [facility] (1 source) Ampicillin Drug Allergy 10-04-2021 [facility] Repository Medications Current Medications Medication Drug Class(es) Dates Sig (Normalized) Sig (Original) [id number] actuat albuterol 0.09 mg/actuat metered dose [...] dose nasal spray (3 sources) Corticosteroid Start: 08-19-2019 take 1 spray(s) nasal route in the [...] min 2V*on XR shoulder LT min 2V* [facility] Main [place] [address] [place] [address] XRay Report Signed Patient: Bernard Ponce MR#: [id number] 2 : 1945 Acct:[id number] Age/Sex: 78 / F ADM Date: 12/11/23 Loc: [facility] Room: Type: [facility] Attending Dr: Braxton Escalante DO Copies to: [...] Alvaro Carvajal M.D.12/11/2023 12:01 PM Dictation Location: [place] [address] Transcribed By: [facility] 12/11/23 1201 Dictated By: Alvaro Carvajal II, MD 12/11/23 1159 Signed By: 12/11/23 1201 Normal [facility] MG MAMM SCREEN 3D DAVID CADon 01-03-2023 MG MAMM SCREEN 3D DAVID CAD Patient: BERNARD PONCE Exam Date: 01/03/2023 : 1945 Gender:F Ordering : COCO PAMELAMisa MOORE [facility] Admission #: [id number] Family : Order #: [id number] CLICK HERE TO VIEW EXAM RADIOLOGY REPORT [...] breast cancer at age 62. LOCATION: [facility] BREAST COMPOSITION: Scattered areas fibroglandular density. FINDINGS: [...] MD on 01/06/2023 at 09:57 Normal [facility] FREE T3on 12-16-2022 FREE T3 2.70 pg/mlL Normal 2.18-3.98 [facility] Comment on above: Performed By: #### T SH, FT3 #### [facility] [address] [place] [address] Dr. Glenny Sneed FREE T4on 12-16-2022 Free T4 [Mass/Vol] 0.92 ng/dL Normal 0.76-1.46 [facility] Comment on above: Performed By: #### F T4 #### [facility] [address] [place] [address] Dr. Glenny Sneed TSHon 12-16-2022 TSH 3.444 uIU/mL Normal 0.358-3.740 [facility] Comment on above: Performed By: #### T SH, FT3 #### [facility] [address] [place] [address] Dr. Glenny Sneed CBC AUTO DIFFon 11-07-2022 BASO # 0.1 103/ul Normal 0.0-0.1 [facility] Comment on above: Performed By: #### T SH, FT3 #### [facility] [address] [place] [address] Dr. Glenny Sneed Basophils/100 WBC (Bld) 1.2 % Normal 0.2-2.0 [facility] Comment on above: Performed By: #### T SH, FT3 #### [facility] [address] [place] [address] Dr. Glenny Sneed EO # 0.2 103/ul Normal 0.0-0.7 [facility] Comment on above: Performed By: #### T SH, FT3 #### [facility] [address] [place] [address] Dr. Glenny Sneed Eosinophils/100 WBC (Bld) 2.8 % Normal 0.9-7.0 [facility] Comment on above: Performed By: #### T SH, FT3 #### [facility] [address] [place] [address] Dr. Glenny Sneed Erythrocyte distribution width (RBC) [Ratio] 13.5 % Normal 11.0-15.0 [facility] Comment on above: Performed By: #### T SH, FT3 #### [facility] [address] [place] [address] Dr. Glenny Sneed Hematocrit (Bld) [Volume fraction] 40.3 % Normal 36.0-48.0 [facility] Comment on above: Performed By: #### T SH, FT3 #### [facility] [address] [place] [address] Dr. Glenny Sneed Hemoglobin (Bld) [Mass/Vol] 12.9 g/dL Normal 12.0-16.0 [facility] Comment on above: Performed By: #### T SH, FT3 #### [facility] [address] [place] [address] Dr. Glenny Sneed IG # 0.01 10e3/ul Normal 0.00-0.03 [facility] Comment on above: Performed By: #### T SH, FT3 #### [facility] [address] [place] [address] Dr. Glenny Sneed IG % 0.2 % Normal 0.0-0.5 [facility] Comment on above: Performed By: #### T , FT3 #### [facility] [address] [place] [address] Dr. Glenny Sneed LYMPH # 2.5 103/ul Normal 1.2-3.8 [facility] Comment on above: Performed By: #### T , FT3 #### [facility] [address] [place] [address] Dr. Glenny Sneed Lymphocytes/100 WBC (Bld) 38.2 % Normal 20.5-60.0 [facility] Comment on above: Performed By: #### T , FT3 #### [facility] [address] [place] [address] Dr. Glenny Sneed MANUAL DIFF REQ NO Normal [facility] Comment on above: Performed By: #### T , FT3 #### [facility] [address] [place] [address] Dr. Glenny Sneed MCH (RBC) [Entitic mass] 27.2 pg Normal 26.7-34.0 [facility] Comment on above: Performed By: #### T SH, FT3 #### [facility] [address] [place] [address] Dr. Glenny Sneed MCHC (RBC) [Mass/Vol] 32.0 g/dL Normal 29.9-35.2 [facility] Comment on above: Performed By: #### T SH, FT3 #### [facility] [address] [place] [address] Dr. Glenny Sneed MCV (RBC) [Entitic vol] 84.8 fL Normal 81.0-99.0 [facility] Comment on above: Performed By: #### T SH, FT3 #### [facility] [address] [place] [address] Dr. Glenny Sneed MONO # 0.6 103/ul Normal 0.3-0.8 [facility] Comment on above: Performed By: #### T SH, FT3 #### [facility] [address] [place] [address] Dr. Glenny Sneed Monocytes/100 WBC (Bld) 8.5 % Normal 1.7-12.0 [facility] Comment on above: Performed By: #### T SH, FT3 #### [facility] [address] [place] [address] Dr. Glenny Sneed NEUT # 3.2 103/ul Normal 1.4-6.5 [facility] Comment on above: Performed By: #### T SH, FT3 #### [facility] [address] [place] [address] Dr. Glenny Sneed Neutrophils/100 WBC (Bld) 49.1 % Normal 43.0-75.0 [facility] Comment on above: Performed By: #### T SH, FT3 #### [facility] [address] [place] [address] Dr. Glenny Sneed Platelet mean volume (Bld) [Entitic vol] 10.2 fL Normal 9.5-13.5 [facility] Comment on above: Performed By: #### T SH, FT3 #### [facility] [address] [place] [address] Dr. Glenny Sneed PLT 350 103/ul Normal 150-450 [facility] Comment on above: Performed By: #### T SH, FT3 #### [facility] [address] [place] [address] Dr. Glenny Sneed RBC 4.75 106/ul Normal 4.20-5.40 [facility] Comment on above: Performed By: #### T SH, FT3 #### [facility] [address] [place] [address] Dr. Glenny Sneed WBC 6.5 103/ul Normal 4.0-11.0 [facility] Comment on above: Performed By: #### T SH, FT3 #### [facility] [address] [place] [address] Dr. Glenny Sneed FREE T4on 11-07-2022 Free T4 [Mass/Vol] 1.15 ng/dL Normal 0.76-1.46 [facility] Comment on above: Performed By: #### F T4, VITAD #### [facility] [address] [place] [address] Dr. Glenny Sneed GLYCOHEMOGLOBIN A1Con 2022 ADA RECOMMENDATION SEE BELOW Normal [facility] Comment on above: Result Comment: ADA RECOMMENDED LIMIT 4.0 - 6.0 ADA THERAPEUTIC TARGET < 7.0 ACTION SUGGESTED > 7.0 Performed By: #### A 1C #### [facility] [address] [place] [address] Dr. Glenny Sneed Glucose [Mass/Vol] 120 mg/dL Normal [facility] Comment on above: Performed By: #### A 1C #### [facility] [address] [place] [address] Dr. Glenny Sneed HbA1c (Bld) [Mass fraction] 5.8 % Normal 4.5-6.2 [facility] Comment on above: Performed By: #### A 1C #### [facility] [address] [place] [address] Dr. Glenny Sneed LIPID PROFILEon 11-07-2022 CHOL-HDL RATIO NORM SEE BELOW Normal [facility] Comment on above: Result Comment: 3.3 - 4.4 LOW RISK 4.4 - 7.1 AVERAGE RISK 7.1 - 11.0 MODERATE RISK >11.0 HIGH RISK Performed By: #### L IPID, CMP, TSH #### [facility] [address] [place] [address] [address] Glenny Sneed Cholesterol [Mass/Vol] 185 mg/dL Normal <=200 [facility] Comment on above: Performed By: #### L IPID, CMP, TSH #### [facility] [address] [place] [address] [address] Glenny Sneed Cholesterol in HDL [Mass/Vol] 63 mg/dL Critically high 40-60 [facility] Comment on above: Performed By: #### L IPID, CMP, TSH #### [facility] [address] [place] [address] [address] Glenny Sneed Cholesterol in LDL [Mass/Vol] 87.6 mg/dL Normal [facility] Comment on above: Performed By: #### L IPID, CMP, TSH #### [facility] [address] [place] [address] [address] Glenny Sneed Cholesterol.total/Ch olesterol in HDL [Mass ratio] 2.9 {ratio} Normal [facility] Comment on above: Performed By: #### L IPID, CMP, TSH #### [facility] [address] [place] [address] [address] Glenny Sneed HDL NORMAL > or = 60 mg/dl - LO W CARDIOVASCULAR RISK <40 mg/dl - HIGH CARDIOVASCULAR RISK Normal [facility] Comment on above: Performed By: #### L IPID, CMP, TSH #### [facility] [address] [place] [address] [address] Glenny Sneed LDL CALC NORMAL SEE BELOW Normal [facility] Comment on above: Result Comment: <100 mg/dl OPTIMAL 100 - 129 mg/dl NEAR OR ABOVE OPTIMAL 130 - 159 mg/dl BORDERLINE HIGH 160 - 189 mg/dl HIGH >190 mg/dl VERY HIGH Performed By: #### L IPID, CMP, TSH #### [facility] [address] [place] [address] [address] Glenny Sneed Triglyceride [Mass/Vol] 172 mg/dL Critically high <=150 [facility] Comment on above: Performed By: #### L IPID, CMP, TSH #### [facility] [address] [place] [address] [address] Glenny Sneed VLDL CALC 34.4 mg/dL Normal [facility] Comment on above: Performed By: #### L IPID, CMP, TSH #### [facility] [address] [place] [address] [address] Glenny Sneed PROF 14(COMP METB)on 023 Albumin [Mass/Vol] 4.1 g/dL Normal 3.4-5.0 [facility] Comment on above: Performed By: #### L IPID, CMP, TSH #### [facility] [address] [place] [address] Dr. Glenny Sneed Albumin/Globulin [Mass ratio] 1.0 {ratio} Normal [facility] Comment on above: Performed By: #### L IPID, CMP, TSH #### [facility] [address] [place] [address] Dr. Glenny Sneed ALP [Catalytic activity/Vol] 77 U/L Normal 46-116 [facility] Comment on above: Performed By: #### L IPID, CMP, TSH #### [facility] [address] [place] [address] Dr. Glenny Sneed ALT [Catalytic activity/Vol] 33 U/L Normal 14-59 [facility] Comment on above: Performed By: #### L IPID, CMP, TSH #### [facility] [address] [place] [address] [address] Glenny Sneed Anion gap [Moles/Vol] 13.1 mmol/L Normal [facility] Comment on above: Performed By: #### L IPID, CMP, TSH #### [facility] [address] [place] [address] Dr. Glenny Sneed AST [Catalytic activity/Vol] 22 U/L Normal 15-37 [facility] Comment on above: Performed By: #### L IPID, CMP, TSH #### [facility] [address] [place] [address] Dr. Glenny Sneed Bilirubin [Mass/Vol] 0.7 mg/dL Normal 0.2-1.0 [facility] Comment on above: Performed By: #### L IPID, CMP, TSH #### [facility] [address] [place] [address] Dr. Glenny Sneed Calcium [Mass/Vol] 10.0 mg/dL Normal 8.5-10.1 [facility] Comment on above: Performed By: #### L IPID, CMP, TSH #### [facility] [address] [place] [address] [address] Glenny Sneed Chloride [Moles/Vol] 102 mmol/L Normal 98-107 [facility] Comment on above: Performed By: #### L IPID, CMP, TSH #### [facility] [address] [place] [address] Dr. Glenny Sneed CO2 [Moles/Vol] 29.9 mmol/L Normal 21.0-32.0 [facility] Comment on above: Performed By: #### L IPID, CMP, TSH #### [facility] [address] [place] [address] Dr. Glenny Sneed Creatinine [Mass/Vol] 0.66 mg/dL Normal 0.55-1.02 [facility] Comment on above: Performed By: #### L IPID, CMP, TSH #### [facility] [address] [place] [address] Dr. Glenny Sneed EGFR-AF PANAMANIAN >60 Normal >=60 [facility] Comment on above: Performed By: #### L IPID, CMP, TSH #### [facility] [address] [place] [address] Dr. Glenny Sneed EGFR-NON AF PANAMANIAN >60 Normal >=60 [facility] Comment on above: Performed By: #### L IPID, CMP, TSH #### [facility] [address] [place] [address] Dr. Glenny Sneed Globulin (S) [Mass/Vol] 4.0 g/dL Normal [facility] Comment on above: Performed By: #### L IPID, CMP, TSH #### [facility] [address] [place], [place] [id number] Dr. Glenny Sneed Glucose [Mass/Vol] 106 mg/dL Normal 74-106 [facility] Comment on above: Performed By: #### L IPID, CMP, TSH #### [facility] [address] [place] [address] Dr. Glenny Sneed Potassium [Moles/Vol] 4.0 mmol/L Normal 3.5-5.1 [facility] Comment on above: Performed By: #### L IPID, CMP, TSH #### [facility] [address] [place] [address] Dr. Glenny Sneed Protein [Mass/Vol] 8.1 g/dL Normal 6.4-8.2 [facility] Comment on above: Performed By: #### L IPID, CMP, TSH #### [facility] [address] [place] [address] Dr. Glenny Sneed Sodium [Moles/Vol] 141 mmol/L Normal 136-145 [facility] Comment on above: Performed By: #### L IPID, CMP, TSH #### [facility] [address] [place] [address] Dr. Glenny Sneed Urea nitrogen [Mass/Vol] 9.0 mg/dL Normal 7.0-18.0 [facility] Comment on above: Performed By: #### L IPID, CMP, TSH #### [facility] [address] [place] [address] Dr. Glenny Sneed Urea nitrogen/Creatinine [Mass ratio] 13.6 mg/mg Normal [facility] Comment on above: Performed By: #### L IPID, CMP, TSH #### [facility] [address] [place] [address] Dr. Glenny Sneed TSHon 11-07-2022 TSH 2.008 uIU/mL Normal 0.358-3.740 [facility] Comment on above: Performed By: #### L IPID, CMP, TSH #### [facility] [address] [place] [address] Dr. Glenny Sneed UA RANDOM W/MICROSCOPICon BACTERIA NONE SEEN Normal NONE SEEN [facility] Comment on above: Performed By: #### U AMIC #### [facility] [address] [place] [address] [address] Glenny Sneed Bilirubin Ql (U) Negative Normal NEGATIVE [facility] Comment on above: Performed By: #### U AMIC #### [facility] [address] [place] [address] [address] Glenny Sneed CAST NONE SEEN Normal NONE SEEN [facility] Comment on above: Performed By: #### U AMIC #### [facility] [address] [address] [address] Glenny Sneed Clarity (U) CLEAR Normal CLEAR [facility] Comment on above: Performed By: #### U AMIC #### [facility] [address] [place] [address] Dr. Glenny Sneed Color (U) LT. YELLOW Normal YELLOW [facility] Comment on above: Performed By: #### U AMIC #### [facility] [address] [address] [address] Glenny Sneed Crystals LM Nom (Urine sed) NONE SEEN Normal NONE SEEN [facility] Comment on above: Performed By: #### U AMIC #### [facility] [address] [place] [address] Dr. Glenny Sneed Epithelial cells LM Ql (Urine sed) NONE SEEN Normal NONE SEEN /RARE [facility] Comment on above: Performed By: #### U AMIC #### [facility] [address] [place] [address] Dr. Glenny Sneed Glucose Ql (U) Negative Normal NEGATIVE [facility] Comment on above: Performed By: #### U AMIC #### [facility] [address] [address] [address] Glenny Sneed Hemoglobin Ql (U) TRACE-INTACT Abnormal NEGATIVE [facility] Comment on above: Performed By: #### U AMIC #### [facility] [address] [place] [address] Dr. Glenny Sneed Ketones Ql (U) Negative Normal NEGATIVE [facility] Comment on above: Performed By: #### U AMIC #### [facility] [address] [address] [address] Glenny Sneed LEUKOCYTES Negative Normal NEGATIVE [facility] Comment on above: Performed By: #### U AMIC #### [facility] [address] [address] [address] Glenny Sneed MUCOUS NONE SEEN Normal NONE SEEN [facility] Comment on above: Performed By: #### U AMIC #### [facility] [address] [address] [address] Glenny Sneed Nitrite Ql (U) Negative Normal NEGATIVE [facility] Comment on above: Performed By: #### U AMIC #### [facility] [address] [address] [address] Glenny Sneed pH (U) 6.5 [pH] Normal 5-9 [facility] Comment on above: Performed By: #### U AMIC #### [facility] [address] [place] [address] Dr. Glenny Sneed RBC 0-2 Normal 0-2 [facility] Comment on above: Performed By: #### U AMIC #### [facility] [address] [address] [address] Glenny Sneed SPEC GRAVITY <=1.005 Abnormal 1.005-<=1.025 [facility] Comment on above: Performed By: #### U AMIC #### [facility] [address] [address] [address] Glenny Sneed UA PROTEIN Negative Normal NEGATIVE/ TRACE [facility] Comment on above: Performed By: #### U AMIC #### [facility] [address] [place] [address] Dr. Glenny Sneed Urobilinogen Qn (U) 0.2 {Justice'U}/dL Normal 0.2 - 1. 0 [facility] Comment on above: Performed By: #### U AMIC #### [facility] [address] [address] [address] Glenny Sneed WBC NONE SEEN Normal NONE SEEN [facility] Comment on above: Performed By: #### U AMIC #### [facility] [address] [place] [address] Dr. Glenny Sneed VITAMIN D 25 OHon 11-07-2022 VIT D 25-OH 35.2 ng/mL Normal [facility] Comment on above: Performed By: #### F T4, VITAD #### [facility] [address] [place] [address] Dr. Glenny Sneed VIT D RANGES SEE BELOW Normal [facility] Comment on above: Result Comment: <20 ng/mL Vit D deficient 20 - <30 ng/mL Vit D insufficient 30 - 100 ng/mL Vit D sufficient >100 ng/mL Potential Toxicity Performed By: #### F T4, VITAD #### [facility] [address] [place] [address] Dr. Glenny Sneed HEPATITIS C ANTIBODYon 05-10 Hep C Virus Ab <0.1 Normal 0.0-0.[address] [facility] Comment on above: Result Comment: Nega tive: [...] Hepatitis C Virus (HCV) RNA, Diagnosis, CORTES ([id number]) and Hepatitis C Virus (HCV) Antibody with reflex to Quantitative Real-time PCR ([id number]). Performed By: #### T SH, FT3 #### [facility] [address] [place] [address] Dr. Glenny Sneed LIPID PROFILEon 05-08-2022 CHOL-HDL RATIO NORM SEE BELOW Normal [facility] Comment on above: Result Comment: 3.3 - 4.4 LOW RISK 4.4 - 7.1 AVERAGE RISK 7.1 - 11.0 MODERATE RISK >11.0 HIGH RISK Performed By: #### T SH, FT3 #### [facility] [address] [place] [address] Dr. Glenny Sneed Cholesterol [Mass/Vol] 173 mg/dL Normal <=200 [facility] Comment on above: Performed By: #### T SH, FT3 #### [facility] [address] [address] [address] Glenny Sneed Cholesterol in HDL [Mass/Vol] 67 mg/dL Critically high 40-60 [facility] Comment on above: Performed By: #### T SH, FT3 #### [facility] [address] [address] [address] Glenny Sneed Cholesterol in LDL [Mass/Vol] 77.8 mg/dL Normal [facility] Comment on above: Performed By: #### T SH, FT3 #### [facility] [address] [place] [address] Dr. Glenny Sneed Cholesterol.total/Ch olesterol in HDL [Mass ratio] 2.6 {ratio} Normal [facility] Comment on above: Performed By: #### T SH, FT3 #### [facility] [address] [place] [address] Dr. Glenny Sneed HDL NORMAL > or = 60 mg/dl - LO W CARDIOVASCULAR RISK <40 mg/dl - HIGH CARDIOVASCULAR RISK Normal [facility] Comment on above: Performed By: #### T SH, FT3 #### [facility] [address] [place] [address] Dr. Glenny Sneed LDL CALC NORMAL SEE BELOW Normal [facility] Comment on above: Result Comment: <100 mg/dl OPTIMAL 100 - 129 mg/dl NEAR OR ABOVE OPTIMAL 130 - 159 mg/dl BORDERLINE HIGH 160 - 189 mg/dl HIGH >190 mg/dl VERY HIGH Performed By: #### T SH, FT3 #### [facility] [address] [place] [address] Dr. Glenny Sneed Triglyceride [Mass/Vol] 141 mg/dL Normal <=150 [facility] Comment on above: Performed By: #### T SH, FT3 #### [facility] [address] [place] [address] Dr. Glenny Sneed VLDL CALC 28.2 mg/dL Normal [facility] Comment on above: Performed By: #### T SH, FT3 #### [facility] [address] [place] [address] Dr. Glenny Sneed LIVER PROFILEon 05-08-2022 Albumin [Mass/Vol] 4.0 g/dL Normal 3.4-5.0 [facility] Comment on above: Performed By: #### T ZENAIDA, FT3 #### [facility] [address] [place] [address] Dr. Glenny Sneed Albumin/Globulin [Mass ratio] 1.0 {ratio} Normal [facility] Comment on above: Performed By: #### T ZENAIDA, FT3 #### [facility] [address] [place] [address] Dr. Glenny Sneed ALP [Catalytic activity/Vol] 77 U/L Normal 46-116 [facility] Comment on above: Performed By: #### T ZENAIDA, FT3 #### [facility] [address] [place] [address] Dr. Glenny Sneed ALT [Catalytic activity/Vol] 39 U/L Normal 14-59 [facility] Comment on above: Performed By: #### T ZENAIDA, FT3 #### [facility] [address] [place] [address] Dr. Glenny Sneed AST [Catalytic activity/Vol] 20 U/L Normal 15-37 [facility] Comment on above: Performed By: #### T ZENAIDA, FT3 #### [facility] [address] [place] [address] Dr. Glenny Sneed BILI, CONJUGATED 0.1 mg/dL Normal 0.0-0.2 [facility] Comment on above: Performed By: #### T ZENAIDA, FT3 #### [facility] [address] [place] [address] Dr. Glenny Sneed Bilirubin [Mass/Vol] 0.7 mg/dL Normal 0.2-1.0 [facility] Comment on above: Performed By: #### T ZENAIDA, FT3 #### [facility] [address] [place] [address] Dr. Glenny Sneed Globulin (S) [Mass/Vol] 4.0 g/dL Normal [facility] Comment on above: Performed By: #### T ZENAIDA, FT3 #### [facility] [address] [place] [address] Dr. Glenny Sneed Protein [Mass/Vol] 8.0 g/dL Normal 6.4-8.2 [facility] Comment on above: Performed By: #### T SH, FT3 #### [facility] [address] [place] [address] Dr. Glenny Sneed LIVER PROFILEon 02-13-2022 Albumin [Mass/Vol] 3.9 g/dL Normal 3.4-5.0 [facility] Comment on above: Performed By: #### T SH, FT3 #### [facility] [address] [place] [address] Dr. Glenny Sneed Albumin/Globulin [Mass ratio] 1.0 {ratio} Normal [facility] Comment on above: Performed By: #### T SH, FT3 #### [facility] [address] [place] [address] Dr. Glenny Sneed ALP [Catalytic activity/Vol] 112 U/L Normal 46-116 [facility] Comment on above: Performed By: #### T SH, FT3 #### [facility] [address] [place] [address] Dr. Glenny Sneed ALT [Catalytic activity/Vol] 50 U/L Normal 14-59 [facility] Comment on above: Performed By: #### T SH, FT3 #### [facility] [address] [place] [address] Dr. Glenny Sneed AST [Catalytic activity/Vol] 25 U/L Normal 15-37 [facility] Comment on above: Performed By: #### T SH, FT3 #### [facility] [address] [place] [address] Dr. Glenny Sneed BILI, CONJUGATED 0.2 mg/dL Normal 0.0-0.2 [facility] Comment on above: Performed By: #### T SH, FT3 #### [facility] [address] [place] [address] Dr. Glenny Sneed Bilirubin [Mass/Vol] 0.7 mg/dL Normal 0.2-1.0 [facility] Comment on above: Performed By: #### T SH, FT3 #### [facility] [address] [place] [address] Dr. Glenny Sneed Globulin (S) [Mass/Vol] 4.0 g/dL Normal [facility] Comment on above: Performed By: #### T SH, FT3 #### [facility] [address] [place] [address] Dr. Glenny Sneed Protein [Mass/Vol] 7.9 g/dL Normal 6.4-8.2 [facility] Comment on above: Performed By: #### T SH, FT3 #### [facility] [address] [place] [address] Dr. Glenny COLEOTomagui 01-23-2022 AST [Catalytic activity/Vol] 41 U/L Critically high 15-37 [facility] Comment on above: Performed By: #### T SH, FT3 #### [facility] [address] [place] [address] Dr. Glenny COLEPTon 01-23-2022 ALT [Catalytic activity/Vol] 85 U/L Critically high 14-59 [facility] Comment on above: Performed By: #### T SH, FT3 #### [facility] [address] [place] [address] Dr. Glenny Sneed LIPID PROFILEon 01-07-2022 CHOL-HDL RATIO NORM SEE BELOW Normal [facility] Comment on above: Result Comment: 3.3 - 4.4 LOW RISK 4.4 - 7.1 AVERAGE RISK 7.1 - 11.0 MODERATE RISK >11.0 HIGH RISK Performed By: #### T SH, FT3 #### [facility] [address] [place] [address] Dr. Glenny Sneed Cholesterol [Mass/Vol] 144 mg/dL Normal <=200 [facility] Comment on above: Performed By: #### T SH, FT3 #### [facility] [address] [place] [address] Dr. Glenny Sneed Cholesterol in HDL [Mass/Vol] 63 mg/dL Critically high 40-60 [facility] Comment on above: Performed By: #### T SH, FT3 #### [facility] [address] [place] [address] Dr. Glenny Sneed Cholesterol in LDL [Mass/Vol] 56.2 mg/dL Normal [facility] Comment on above: Performed By: #### T SH, FT3 #### [facility] [address] [place] [address] Dr. Glenny Sneed Cholesterol.total/Ch olesterol in HDL [Mass ratio] 2.3 {ratio} Normal [facility] Comment on above: Performed By: #### T SH, FT3 #### [facility] [address] [place] [address] Dr. Glenny Sneed HDL NORMAL > or = 60 mg/dl - LO W CARDIOVASCULAR RISK <40 mg/dl - HIGH CARDIOVASCULAR RISK Normal [facility] Comment on above: Performed By: #### T SH, FT3 #### [facility] [address] [place] [address] Dr. Glenny Sneed LDL CALC NORMAL SEE BELOW Normal [facility] Comment on above: Result Comment: <100 mg/dl OPTIMAL 100 - 129 mg/dl NEAR OR ABOVE OPTIMAL 130 - 159 mg/dl BORDERLINE HIGH 160 - 189 mg/dl HIGH >190 mg/dl VERY HIGH Performed By: #### T ZENAIDA, FT3 #### [facility] [address] [place] [address] Dr. Glenny Sneed Triglyceride [Mass/Vol] 124 mg/dL Normal <=150 [facility] Comment on above: Performed By: #### T ZENAIDA, FT3 #### [facility] [address] [place] [address] Dr. Glenny Sneed VLDL CALC 24.8 mg/dL Normal [facility] Comment on above: Performed By: #### T SH, FT3 #### [facility] [address] [place] [address] Dr. Glenny Stoutn 01-07-2022 AST [Catalytic activity/Vol] 53 U/L Critically high 15-37 [facility] Comment on above: Performed By: #### T SH, FT3 #### [facility] [address] [place] [address] Dr. Glenny Sneed [facility] 01-07-2022 ALT [Catalytic activity/Vol] 108 U/L Critically high 14-59 [facility] Comment on above: Performed By: #### T , FT3 #### [facility] [address] [place] [address] Dr. Glenny Sneed Vital Signs Date Time Vital Sign Value Performing Clinician Hernandez murphy 11-05-2023 09:44-0500 Body height 154.9 cm Pamela Aichsharda FIELD MARKETING ASSOCIATE Work Phone: [facility] 11-05-2023 09:44-0500 Body mass index (BMI) [Ratio] 30 kg/m2 Pamela Aichholz FIELD MARKETING ASSOCIATE Work Phone: [facility] 11-05-2023 09:44-0500 Body temperature 97.5 [degF] Pamela Aichholz FIELD MARKETING ASSOCIATE Work Phone: [facility] 11-05-2023 09:44-0500 Body weight 72.03 kg Pamela Aichholz FIELD MARKETING ASSOCIATE Work Phone: [facility] 11-05-2023 09:44-0500 Diastolic blood pressure 68 mm[Hg] Pamela Aichholz FIELD MARKETING ASSOCIATE Work Phone: [facility] 11-05-2023 09:44-0500 Heart rate 61 /min Pamela Aichholz FIELD MARKETING ASSOCIATE Work Phone: [facility] 11-05-2023 09:44-0500 Respiratory rate 18 /min Pamela Aichholz FIELD MARKETING ASSOCIATE Work Phone: [facility] 11-05-2023 09:44-0500 SaO2% (BldA) [Mass fraction] 98 % Pamela Aichholz FIELD MARKETING ASSOCIATE Work Phone: [facility] 11-05-2023 09:44-0500 Systolic blood pressure 138 mm[Hg] Pamela Aichholz FIELD MARKETING ASSOCIATE Work Phone: [facility] Encounters Encounter Date Encounter Type Care Provider Facility Start: 12-22-2023 ambulatory BRAXTON ESCALANTE [facility] Start: 12-15-2023 End: 12-22-2023 ambulatory PAMELA MOORE [facility] Start: 12-11-2023 End: 12-11-2023 ambulatory Braxton Escalante Facility:[facility] Start: 12-11-2023 End: 12-11-2023 ambulatory MD Jorge Goncalves Work Phone: [facility] Work Phone: Start: 12-11-2023 End: 12-11-2023 Patient encounter procedure MD Jorge Goncalves Work Phone: [facility] Work Phone: Start: 11-05-2023 Bamboo flowsheet Pamela Moore FIELD MARKETING ASSOCIATE Work Phone: [facility] Start: 11-05-2023 Bamboo flowsheet Pamela Moore FIELD MARKETING ASSOCIATE Work Phone: [facility] Start: 11-05-2023 End: 11-05-2023 ambulatory PAMELA MOORE Not Available Start: 11-05-2023 End: 11-05-2023 Office outpatient visit 25 minutes Pamela Moore [employer] MARKETING ASSOCIATE Work Phone: [facility] Comment on above: Gastroesophageal ref lux disease, unspecified whether esophagitis present (Primary Dx); Age related osteoporosis, unspecified pathological fracture presence (CMS/[facility]); Vitamin D deficiency; Pre-diabetes; Hypothyroidism (acquired) (CMS/[facility]); Mixed hyperlipidemia ([facility]); Encounter for screening mammogram for malignant neoplasm of breast; BMI 30.0-30.9,adult; Chronic left shoulder pain Start: 09-17-2023 End: 09-17-2023 ambulatory PAMELA MOORE Not Available Start: 02-20-2023 ambulatory JORGE GONCALVES Facility :[facility] Start: 01-03-2023 End: 01-04-2023 ambulatory COCO MOORE Facility:[facility] Start: 12-16-2022 End: 12-17-2022 ambulatory COCO MOORE Facility:[facility] Start: 11-07-2022 End: 11-08-2022 ambulatory COCO MOORE Facility:[facility] Start: 05-08-2022 End: 05-09-2022 ambulatory [employer]ING [employer]JUSTER PAMELA HIGHTOWERJUSTINYamile Facility:[facility] Start: 02-13-2022 End: 02-14-2022 ambulatory EX[employer]ING [employer] ADJUSTER PAMELA MOORE Facility:[facility] Start: 01-23-2022 End: 01-24-2022 ambulatory EXTR[employer]ING [employer] ADJUSTER PAMELA HIGHTOWERJUSTINYamile Facility:[facility] Start: 01-07-2022 End: 01-08-2022 ambulatory EXTR[employer]ING [employer] ADJUSTER PAMELA HIGHTOWERJUSTINYamile Facility:[facility] Procedures Date Procedure Procedure Detail Performing Clinician Start: 12-11-2023 Plain X-ray of left shoulder MD Jorge Goncalves Work Phone: Start: 05-23-2021 Colonoscopy Pamela john NP Work Phone: Plan of Treatment Date Care Activity Detail Author Start: 05-23-2031 Screening for malignant neoplasm of colon [facility] Start: 05-08-2024 Medicare Annual Wellness (AWV) Medicare Annual Wellness (AWV) [facility] Start: 03-08-2024 End: 03-08-2024 Patient encounter procedure 03/08/2024 9:40 AM EDT Office Visit [facility] [address] [place] [address] Pamela Moore, MARIKA [address] [place] [address] [facility] Start: 01-05-2024 End: 01-03-2025 MG Breast - bilateral Screening Bilateral screening mammogram Imaging Routine Encounter for screening mammogram for malignant neoplasm of breast Expected: 01/05/2024 (Approximate), Expires: 01/03/2025 [facility] Comment on above: Expected: 01/05/2024 (Approximate), Expi res: 01/03/2025 Start: 12-11-2023 Plain X-ray of left shoulder XR shoulder LT min 2V* [facility] Start: 12-11-2023 XR Shoulder - left Views [facility] Start: 11-05-2023 End: 11-05-2024 25-hydroxyvitamin D3 [Mass/volume] in Serum or Plasma Vitamin D 25 hydroxy Lab Routine Vitamin D deficiency Expected: 11/05/2023 (Approximate), Expires: 11/05/2024 [facility] Comment on above: Expected: 11/05/2023 (Approximate), Expi res: 11/05/2024 Start: 11-05-2023 End: 11-05-2024 CBC W Auto Differential panel - Blood CBC and differential Lab Routine Gastroesophageal reflux disease, unspecified whether esophagitis present Expected: 11/05/2023 (Approximate), Expires: 11/05/2024 [facility] Work Phone: Comment on above: Expected: 11/05/2023 (Approximate), Expi res: 11/05/2024 Start: 11-05-2023 End: 11-05-2024 Comprehensive metabolic 2000 panel - Serum or Plasma Comprehensive metabolic panel Lab Routine Gastroesophageal reflux disease, unspecified whether esophagitis present Age related osteoporosis, unspecified pathological fracture presence (CMS/HCC) Vitamin D deficiency Pre-diabetes Mixed hyperlipidemia (CMS/HCC) Expected: 11/05/2023 (Approximate), Expires: 11/05/2024 [facility] Comment on above: Expected: 11/05/2023 (Approximate), Expi res: 11/05/2024 Start: 11-05-2023 End: 11-05-2024 DXA Skeletal system Views for bone density DEXA bone density Imaging Routine Age related osteoporosis, unspecified pathological fracture presence (CMS/HCC) Expected: 11/05/2023 (Approximate), Expires: 11/05/2024 [facility] Comment on above: Expected: 11/05/2023 (Approximate), Expi res: 11/05/2024 Start: 11-05-2023 End: 11-05-2024 Hemoglobin A1c measurement Hemoglobin A1c Lab Routine Pre-diabetes Expected: 11/05/2023 (Approximate), Expires: 11/05/2024 [facility] Comment on above: Expected: 11/05/2023 (Approximate), Expi res: 11/05/2024 Start: 11-05-2023 End: 11-05-2024 Lipid 1996 panel - Serum or Plasma Lipid panel Lab Routine Pre-diabetes Hypothyroidism (acquired) (CMS/HCC) Mixed hyperlipidemia (CMS/HCC) Expected: 11/05/2023 (Approximate), Expires: 11/05/2024 [facility] Comment on above: Expected: 11/05/2023 (Approximate), Expi res: 11/05/2024 Start: 11-05-2023 End: 11-05-2024 Microalbumin/Creatinine panel in random Urine Microalbumin / creatinine, urine ratio Lab Routine Pre-diabetes Expected: 11/05/2023 (Approximate), Expires: 11/05/2024 [facility] Comment on above: Expected: 11/05/2023 (Approximate), Expi res: 11/05/2024 Start: 11-05-2023 End: 11-05-2024 Urinalysis complete panel - Urine Urinalysis with reflex microscopic (clean catch) Lab Routine Pre-diabetes Expected: 11/05/2023 (Approximate), Expires: 11/05/2024 [facility] Comment on above: Expected: 11/05/2023 (Approximate), Expi res: 11/05/2024 Start: 11-05-2023 End: 11-05-2023 Patient encounter procedure 11/05/2023 9:40 AM EST Office Visit [facility] [address] [place] [id number] Pamela Moore NP [address] [place] [address] Gastroesophageal reflux disease, unspecified whether esophagitis present (Primary Dx); Age related osteoporosis, unspecified pathological fracture presence (CMS/HCC); Vitamin D deficiency; Pre-diabetes; Hypothyroidism (acquired) (CMS/HCC); Mixed hyperlipidemia (CMS/HCC); Encounter for screening mammogram for malignant neoplasm of breast [facility] Comment on above: Gastroesophageal reflux disease, unspeci fied whether esophagitis present (Primary Dx); Age related osteoporosis, unspecified pathological fracture presence (CMS/HCC); Vitamin D deficiency; Pre-diabetes; Hypothyroidism (acquired) (CMS/HCC); Mixed hyperlipidemia (CMS/HCC); Encounter for screening mammogram for malignant neoplasm of breast Start: 05-23-2023 Influenza vaccination Influenza Vaccine (#1) [facility] Start: 2012 Pneumococcal Vaccine: 65+ Years (1 - PCV) Pneumococcal Vaccine: 65+ Years (1 - PCV) [facility] Start: 1945 Screening for malignant neoplasm of colon [facility] Payers Date Payer Category Payer Self-pay [id number] 2021 Medicare [employer]IC[employer]AGE [facility] MEDICARE ADV[employer]AGE [id number] 2021-Present [address] [place] [address] [id number] 1959 Unknown [id number] 1947 Unknown [id number] 93 1947 Unknown [id number] 2.16.840.1.862939.3.579.2.5 93 1947 Unknown [id number] 2.16.840.1.503229.3.579.2.5 93 1947 Unknown [id number] 2.16.840.1.233253.3.579.2.5 93 1947 Unknown [id number] 2.16.840.1.758013.3.579.2.5 93 1947 Unknown [id number] 2.16.840.1.238224.3.579.2.5 93 1947 Unknown [id number] 2.16.840.1.295294.3.579.2.5 93 1947 Unknown [id number] 2.16.840.1.314965.3.579.2.7 18 1947 Unknown [id number] 2.16.840.1.178304.3.579.2.1 259 1947 Unknown [id number] 2.16.840.1.992619.3.579.2.1 259 1947 Unknown [id number] 2.16.840.1.018566.3.579.2.1 286 1947 Unknown [id number] 2.16.840.1.955918.3.579.2.1 286 Medicaid Medicaid [id number] Medicare Medicare [id number] Unknown [id number] [id number] 31 Worker's Compensation [id number] Social History Date Type Detail Facility Start: [...] Start: 1945 Sex Assigned At Female F [facility] History of Present illness Narrative 11-05-2023 Pamela Moore, MARIKA - 11/05/2023 10:46 AM ESTPamela Moore, FIELD MARKETING ASSOCIATE - 11/05/2023 10:45 AM Donell Moore NP - 11/05/2023 10:45 AM ESTPamela Moore, FIELD MARKETING ASSOCIATE - 11/05/2023 10:44 AM EST Note Date & Type Note Facility 11-05-2023 History of Presen t illness Narrative Associated Problem(s): Chronic left shoulder pain Will refer to Dr De La Fuente in [place] per pt request Associated Problem(s): Encounter for [...] refer to Dr De La Fuente in [place] per pt request Relevant Orders Ambulatory referral [...] Date Primary osteoarthritis of left shoulder acute [facility] Work Phone: Reason for referral (narrative) Consultation (Routine) - Pending Review Note Date & Type Note Facility Reason for referral (narrati ve) Specialty Diagnoses / Procedures Referred By Lisa morgan Referred To Contact Orthopaedic Surgery Diagnoses Chronic left shoulder pain AicPamela isbell NP [address] [place] [address] Ziggy De La Fuente MD [facility] [place] [address] Referral ID Status Reason Start Date Expiration Date Visits Requested Visits Authorized [id number] Pending Review Specialty Services Required 11/05/2023 05/03/2024 [...] and content) DATE CREATED AUTHOR 01/06/2023 [facility] DATE CREATED AUTHOR AUTHOR'S ORGANIZ ATION 02/28/2023 [facility] DATE CREATED AUTHOR AUTHOR'S ORGANIZ ATION 11/06/2023 [facility] EPIC DATE CREATED AUTHOR AUTHOR'S ORGANIZ ATION 12/14/2023 [facility] DATE CREATED AUTHOR AUTHOR'S ORGANIZ ATION 12/23/2023 [facility] Care Teams (unrecognized sec tion and content) Male Infertility Specialist Relationship Specialty Start Date End Date Jorge Goncalves MD [address] [place] [address] PCP - General Family Medicine 11/05/23 Male Infertility Specialist Relationship Specialty Start Date End Date Jorge Goncalves MD [address] [place] [address] PCP - General Family Medicine [...] BE BASED ON THE PRIMARY CLINICAL RECORDS. [employer] provides no warranty or guarantee of the accuracy or completeness of information in this document.
== END 2024-01-05 08:04 | disposition home or self-care (01) ==
LOC: MAMMO 08:03
PROVIDERS: PCP Nurse Practitioner; Visit Provider Nurse Practitioner
DX: Z12.31 Encounter for screening mammogram for malignant neoplasm of breast (principal); M81.0 Age-related osteoporosis without current pathological fracture; Z80.3 Family history of malignant neoplasm of breast; M85.80 Other specified disorders of bone density and structure, unspecified site
CPT/HCPCS: 77063; 77067; 77080

== ENCOUNTER 2024-07-07 20:18 | Outpatient (REF) | payer MEDICARE, SELFPAY ==
--- OUTSIDE RECORDS SUMMARY | 2024-07-07 20:22 | XMS_ITS | CCD ---
Author Organization [facility] Care Team Providers Care [employer]er Name Role Phone AICHHOLZ, AUTOMOTIVE EXHAUST EMISSIONS TECHNICIAN PAMELA Admitting Unavailable AICHHOLZ, AUTOMOTIVE EXHAUST EMISSIONS TECHNICIAN PAMELA Attending Unavailable AICHHOLZ, AUTOMOTIVE EXHAUST EMISSIONS TECHNICIAN PAMELA Primary Care Unavailable AICHHOLZ, AUTOMOTIVE EXHAUST EMISSIONS TECHNICIAN PAMELA Consulting Unavailable AICHHOLZ, AUTOMOTIVE EXHAUST EMISSIONS TECHNICIAN PAMELA Admitting Unavailable AICHHOLZ, AUTOMOTIVE EXHAUST EMISSIONS TECHNICIAN PAMELA Attending Unavailable AICHHOLZ, AUTOMOTIVE EXHAUST EMISSIONS TECHNICIAN PAMELA Primary Care Unavailable AICHHOLZ, AUTOMOTIVE EXHAUST EMISSIONS TECHNICIAN PAMELA Consulting Unavailable AICHHOLZ, AUTOMOTIVE EXHAUST EMISSIONS TECHNICIAN PAMELA Admitting Unavailable AICHHOLZ, AUTOMOTIVE EXHAUST EMISSIONS TECHNICIAN PAMELA Attending Unavailable AICHHOLZ, AUTOMOTIVE EXHAUST EMISSIONS TECHNICIAN PAMELA Primary Care Unavailable AICHHOLZ, AUTOMOTIVE EXHAUST EMISSIONS TECHNICIAN PAMELA Consulting Unavailable AICHHOLZ, AUTOMOTIVE EXHAUST EMISSIONS TECHNICIAN PAMELA Admitting Unavailable AICHHOLZ, AUTOMOTIVE EXHAUST EMISSIONS TECHNICIAN PAMELA Attending Unavailable AICHHOLZ, AUTOMOTIVE EXHAUST EMISSIONS TECHNICIAN PAMELA Primary Care Unavailable AICHHOLZ, AUTOMOTIVE EXHAUST EMISSIONS TECHNICIAN PAMELA Consulting Unavailable AICHHOLZ, AUTOMOTIVE EXHAUST EMISSIONS TECHNICIAN PAMELA Admitting Unavailable AICHHOLZ, AUTOMOTIVE EXHAUST EMISSIONS TECHNICIAN PAMELA Attending Unavailable AICHHOLZ, AUTOMOTIVE EXHAUST EMISSIONS TECHNICIAN PAMELA Primary Care Unavailable AICHHOLZ, AUTOMOTIVE EXHAUST EMISSIONS TECHNICIAN PAMELA Consulting Unavailable AICHHOLZ, AUTOMOTIVE EXHAUST EMISSIONS TECHNICIAN PAMELA Admitting Unavailable AICHHOLZ, AUTOMOTIVE EXHAUST EMISSIONS TECHNICIAN PAMELA Attending Unavailable AICHHOLZ, AUTOMOTIVE EXHAUST EMISSIONS TECHNICIAN PAMELA Primary Care Unavailable AICHHOLZ, AUTOMOTIVE EXHAUST EMISSIONS TECHNICIAN PAMELA Consulting Unavailable AICHHOLZ, AUTOMOTIVE EXHAUST EMISSIONS TECHNICIAN PAMELA Admitting Unavailable AICHHOLZ, AUTOMOTIVE EXHAUST EMISSIONS TECHNICIAN PAMELA Attending Unavailable AICHHOLZ, AUTOMOTIVE EXHAUST EMISSIONS TECHNICIAN PAMELA Primary Care Unavailable AICHHOLZ, AUTOMOTIVE EXHAUST EMISSIONS TECHNICIAN PAMELA Consulting Unavailable JORGE GONCALVES Primary Care Unavailable Tab Ibarra Admitting Unavail Tab Jauregui Attending Unavail Jorge Quijano MD Primary Care Provider [phone] MD Jorge Goncalves Primary Care Provider DO Braxton Escalante Attending Provider [phone] PAMELA MOORE Primary Care Unavailable BRAXTON ESCALANTE Referring Unavailable BRAXTON ESCALANTE Referring Unavailable PAMELA MOORE Primary Care Unavailable EDWARD ALLAN Attending UnavailPAMELA Nguyen Referring Unavailable PAMELA MOORE Primary Care Unavailable MD Jorge Goncalves Primary Care Provider [phone] DO Braxton Escalante Attending Provider Braxton Escalante Attending Unavailable Jorge Goncalves Primary Care Unavailable Braxton Escalante Admitting Unavailable Braxton Escalante Attending Unavailable Jorge Goncalves Primary Care Unavailable Braxton Escalante Admitting Unavailable AICHSARAHZ, PAMELA Attending Unavailable AICHHOLZ, PAMELA Attending Unavailable AICHHOLZ, PAMELA Referring Unavailable AICHHOLZ, PAMELA Attending Unavailable AICHHOLZ, PAMELA Attending Unavailable AICHHOLZ, PAMELA Attending Unavailable AICHHOLZ, PAEMLA Attending Unavailable Aichholz MEDICAL LABORATORY TECHNICAL OFFICER, Pamela Unavailable Allergies Allergy Classification Reported Allergen(s) Allergy Type Date of Onset Reaction(s) Facility (3 sources) Ampicillin; Translations: [AMPICILLIN] Drug Allergy 02-10-2012 [facility] (4 sources) Ampicillin Drug Allergy 02-18-2023 [facility] (1 source) Ampicillin Drug Allergy 10-04-2021 [facility] Medications Current Medications Medication Drug Class(es) Dates Sig (Normalized) Sig (Original) [id number] 200 actuat albuterol 0.09 mg/actuat metered dose inhaler (6 sources) beta2-Adrenergic Agonist Start: 04-29-2024 Albuterol Sulfate Active INHALATION April 29, 2024 12:00am Start: 03-27-2024 take 2 puff(s) by in halation every six hours for wheezing albuterol HFA 90 mcg/act inhaler Indications: Acute bronchitis, unspecified Inhale 2 puffs every 6 (six) hours if needed for shortness of breath or wheezing 18 g 1 03/27/2024 Active take 2 puff(s) by in halation every four hours for wheezing albuterol HFA 90 mcg/act inhaler Inhale 2 puffs every 4 (four) hours if needed for wheezing or shortness of breath 0 Active alendronic acid 70 mg oral tablet (6 sources) Bisphosphonate Start: 05-31-2024 End: 08-23-2024 alendronate (Fosamax) 70 MG tablet Indications: Age related osteoporosis, unspecified pathological fracture presence (CMS/HCC) Take 1 tablet (70 mg) by mouth every 7 (seven) days 12 tablet 1 05/31/2024 08/23/2024 Active Start: 04-29-2024 Alendronate Ac tive MG PO April 29, 2024 12:00am alendronate (Fos amax) 70 MG tablet Take 70 mg by mouth every 7 (seven) days. 0 Active atorvastatin 20 mg oral tablet (7 sources) HMG-CoA Reductase Inhibitor Start: 04-29-2024 Atorvastatin Active MG PO April 29, 2024 12:00am Start: 04-14-2024 End: 09-23-2024 take 1 tablet by mouth at bedtime atorvastatin (Lipitor) 20 MG tablet Indications: Hyperlipidemia, unspecified (CMS/HCC) Take 1 tablet (20 mg) by mouth at bedtime 90 tablet 1 06/25/2024 09/23/2024 Active take 1 tablet by dacia th in the morning atorvastatin (Lipitor) 20 MG tablet Take 20 mg by mouth in the morning. 0 Active benzonatate 100 mg oral capsule (4 sources) Non-narcotic Antitussive take 1 capsule by mouth three times daily as needed benzonatate (Tessalon) 100 MG capsule Take 100 mg by mouth 3 (three) times a day as needed. Active cholecalciferol 0.05 mg oral tablet (5 sources) Vitamin D Start: 024 cholecalciferol 50 MCG (2000 UT) tablet Indications: Vitamin D Deficiency 2,000 international units once a day 30 tablet 5 11/17/2023 Active take 1 capsule by mouth once adilene ly Cholecalciferol (Vitamin D3) 50 MCG capsule Take 50 mcg by mouth Daily Pt is taking OTC () Active cholecalciferol (Vitamin D-3) 125 MCG (5000 UT) capsule Vitamin D3 0 Active docosahexaenoic acid 120 mg / eicosapentaenoic acid 180 mg oral capsule (4 sources) take 1 capsule by mouth once daily omega-3 (fish oil) 1000 MG capsule Take 1 capsule by mouth 1 (one) time each day at the same time. Active fluticasone propionate 0.05 mg/actuat metered dose nasal spray (4 sources) Corticosteroid Start: take 1 spray(s) nasal route in the morning fluticasone (Flonase) 50 MCG/ACT nasal spray Administer 1 spray into each nostril in the morning. 05/10/2019 Active furosemide 20 mg oral tablet (4 sources) Loop Diuretic furosemide (Lasi x) 20 MG tablet Take 20 mg by mouth if needed (prn). Active levothyroxine sodium 0.05 mg oral tablet (6 sources) l-Thyroxine Start: 4 Levothyroxine (Synthroid) 50 mcg tablet Active MCG PO April 29, 2024 12:00am take 1 tablet by mouth before me altime levothyroxine (Synthroid) 50 MCG tablet Take 50 mcg by mouth in the morning. Take before meals. 0 Active loratadine 10 mg disintegrating oral tablet (4 sources) take 1 tablet by dacia th once daily loratadine (Claritin Reditabs) 10 MG disintegrating tablet Take 10 mg by mouth Daily Pt taking OTC allergy relief 24hr 1 daily Active loratadine (Clar itin) 10 MG tablet Take 10 mg by mouth if needed for allergies 0 Active meclizine hydrochloride 25 mg oral tablet (4 sources) Antiemetic take 1 tablet by dacia th four times daily as needed for dizziness meclizine (Antivert) 25 MG tablet Take 1 tablet by mouth 4 (four) times a day as needed for dizziness Active Multiple Vitamin (MULTIVITAMIN ADULT PO) (4 sources) Multiple Vitamin (MULTIVITAMIN ADULT PO) Multivitamin Active Multiple Vitamin (MULTIVITAMIN ADULT PO) Multivitamin 0 Active papaya allergenic extract (4 sources) Non-Standardized Food Allergenic Extract Papaya 100 MG tablet Papaya Active Papaya 100 MG ta blet Papaya 0 Active Problems Active Problems Problem Classification Problem Date Documented Date Episodic/Chronic Anxiety disorders (1 source) Generalized anxiety disorder; Translations: [Generalized anxiety disorder] Onset: 05-10-2024 05-10-2024 Chronic Blindness and vision defects (3 sources) Presbyopia; Translations: [Myopia, bilateral] Onset: 04-01-2024 Episodic Cataract (1 source) Age-related nuclear cataract, bilateral; Translations: [Age-related nuclear cataract, bilateral] Onset: 04-01-2024 Chronic Disorders of lipid metabolism (16 sources) Hyperlipidemia, unspecified; Translations: [Hyperlipidemia] Onset: 05-08-2022 Chronic Diverticulosis and diverticulitis (4 sources) Diverticulum of large intestine without hemorrhage; Translations: [Diverticulosis of large intestine without perforation or abscess without bleeding] Onset: 11-05-2023 11-05-2023 Chronic Esophageal disorders (10 sources) Laryngopharyngeal reflux; Translations: [Gastro-esophageal reflux disease without esophagitis] Onset: 01-31-2023 01-31-2023 Chronic Essential hypertension (1 source) Essential hypertension; Translations: [Essential (primary) hypertension] Onset: 05-10-2024 05-10-2024 Chronic Nutritional deficiencies (7 sources) Vitamin D deficiency, unspecified; Translations: [Vitamin D deficiency] Onset: 11-13-2022 11-05-2023 Chronic Osteoarthritis (20 sources) Arthritis of right knee; Translations: [Unilateral primary osteoarthritis, right knee] Onset: 01-31-2023 01-31-2023 Chronic Osteoporosis (6 sources) Osteoporosis; Translations: [Age-related osteoporosis without current pathological fracture] Onset: 11-05-2023 11-05-2023 Chronic Other connective tissue disease (2 sources) Disorder of rotator cuff; Translations: [Unspecified rotator cuff tear or rupture of right shoulder, not specified as traumatic] 04-29-2024 Episodic Other connective tissue disease (2 sources) Unspecified rotator cuff tear or rupture of right shoulder, not specified as traumatic; Translations: [Disorders of bursae and tendons in shoulder region, unspecified] 04-29-2024 Episodic Other connective tissue disease (1 source) Right rotator cuff syndrome; Translations: [Unspecified rotator cuff tear or rupture of right shoulder, not specified as traumatic] Onset: 05-10-2024 05-10-2024 Episodic Other ear and sense organ disorders (4 sources) Chronic non-infective otitis externa; Translations: [Other otitis externa, bilateral] Onset: 01-31-2023 01-31-2023 Chronic Other ear and sense organ disorders (4 sources) Hearing loss; Translations: [Unspecified hearing loss, unspecified ear] Onset: 01-31-2023 01-31-2023 Chronic Other ear and sense organ disorders (4 sources) Sensorineural hearing loss, bilateral; Translations: [Sensorineural hearing loss, bilateral] Onset: 01-31-2023 01-31-2023 Chronic Other eye disorders (1 source) Dry eye syndrome of bilateral lacrimal glands; Translations: [Dry eye syndrome of bilateral lacrimal glands] Onset: 04-01-2024 Episodic Other non-traumatic joint disorders (3 sources) Pain in right shoulder; Translations: [Right shoulder pain] Onset: 04-29-2024 04-26-2024 Episodic Other nutritional; endocrine; and metabolic disorders (1 source) Obesity; Translations: [Obesity, unspecified] Onset: 09-17-2023 09-17-2023 Chronic Other nutritional; endocrine; and metabolic disorders (6 sources) Body mass index 30+ - obesity; Translations: [Body mass index (BMI) 30.0-30.9, adult] Onset: 11-05-2023 Resolved: 03-08-2024 11-05-2023 Chronic Other upper respiratory disease (4 sources) Chronic laryngitis; Translations: [Chronic laryngitis] Onset: 01-31-2023 01-31-2023 Chronic Other upper respiratory disease (4 sources) Allergic rhinitis; Translations: [Allergic rhinitis, unspecified] Onset: 11-05-2023 11-05-2023 Chronic Spondylosis; intervertebral disc disorders; other back problems (4 sources) Degeneration of cervical intervertebral disc; Translations: [Other cervical disc degeneration, unspecified cervical region] Onset: 11-05-2023 11-05-2023 Chronic Thyroid disorders (10 sources) Hypothyroidism, unspecified; Translations: [Acquired hypothyroidism] Onset: 12-16-2022 Chronic Unclassified (1 source) Eye Exam Onset: 04-01-2024 Past or Other Problems Problem Classification Problem Date Documented Da te Episodic/Chronic Abdominal pain (1 source) Generalized abdominal pain; Translations: [Generalized abdominal pain] Onset: 03-08-2024 Resolved: 03-08-2024 03-08-2024 Episodic Diabetes mellitus without complication (7 sources) Prediabetes; Translations: [Prediabetes] Onset: 11-13-2022 11-05-2023 Episodic Immunizations and screening for infectious disease (1 source) Encounter for screening for other viral diseases; Translations: [ENC SCREENING FOR OTH VIRAL DZ] Onset: 05-09-2022 Episodic Mood disorders (1 source) Mood disorders Onset: 04-14-2024 04-14-2024 Other circulatory disease (1 source) Elevated blood pressure; Translations: [Elevated blood-pressure reading, without diagnosis of hypertension] Onset: 04-14-2024 Resolved: 05-10-2024 05-10-2024 Episodic Other connective tissue disease (4 sources) Triggering of digit; Translations: [Trigger finger, right ring finger] Onset: 11-05-2023 11-05-2023 Episodic Other gastrointestinal disorders (1 source) Constipation; Translations: [Other constipation] Onset: 03-08-2024 03-08-2024 Episodic Other gastrointestinal disorders (1 source) Abdominal bloating; Translations: [Abdominal distension (gaseous)] Onset: 03-08-2024 Resolved: 03-08-2024 03-08-2024 Episodic Other lower respiratory disease (4 sources) Cough; Translations: [Cough in adult] Onset: 11-05-2023 11-05-2023 Episodic Other non-traumatic joint disorders (5 sources) Chronic pain of left upper limb; Translations: [Pain in left shoulder] Onset: 11-05-2023 11-05-2023 Episodic Other non-traumatic joint disorders (5 sources) Pain in left shoulder; Translations: [Left shoulder pain] Onset: 12-11-2023 12-08-2023 Episodic Other screening for suspected conditions (not mental disorders or infectious disease) (14 sources) Other specified abnormal findings of blood chemistry; Translations: [Other abnormal blood chemistry] Onset: 02-13-2022 Episodic Otitis media and related conditions (4 sources) Dysfunction of left eustachian tube; Translations: [Unspecified Eustachian tube disorder, left ear] Onset: 01-31-2023 01-31-2023 Episodic Residual codes; unclassified (4 sources) Insomnia; Translations: [Insomnia, unspecified] Onset: 11-05-2023 11-05-2023 Episodic Results Test Name Value Interpretation Reference Range Facility XR shoulder RT min 2V*on XR shoulder RT min 2V* [facility] [address] [place] [address] XRay Report Signed Patient: Bernard Ponce MR#: [id number] 2 : 1945 Acct:[id number] Age/Sex: 78 / F ADM Date: 04/29/24 Loc: [facility] [place] Room: Type: [facility] CLI Attending Dr: Braxton Escalante DO Copies to: Braxton Escalante DO Ordering Provider: Braxton Escalante DO Date of Service: 04/29/24 XR/XR shoulder RT min 2V*: M25.511 - Pain in right shoulder 4 views right shoulder plain film HISTORY: Right shoulder pain. COMPARISON: None ACUTE FINDINGS: None DEGENERATIVE CHANGE: Inferior glenohumeral spurring. Acromioclavicular spurring. Intra-articular body present SOFT TISSUE FINDINGS: Unremarkable JOINT EFFUSION: None POSTOP CHANGES: None BONY MINERALIZATION: Adequate XR/XR shoulder RT min 2V* IMPRESSION: Moderate degenerative change Impression dictated by: Ra Acosta M.D.04/29/2024 3:49 PM Dictation Location: [place] [address] Transcribed By: [facility] 04/29/24 1549 Dictated By: Ra Acosta DO 04/29/24 1548 Signed By: 04/29/24 1549 Normal [facility] XR shoulder LT min 2V*on XR shoulder LT min 2V* [facility] [place] [address] [place] [address] XRay Report Signed Patient: Bernard Ponce MR#: [id number] 2 : 1945 Acct:[id number] Age/Sex: 78 / F ADM Date: 12/11/23 Loc: [facility] [place] Room: Type: [facility] CLI Attending Dr: Braxton Escalante DO Copies to: [...] Alvaro Carvajal M.D.12/11/2023 12:01 PM Dictation Location: [place] [address] Transcribed By: [facility] 12/11/23 1201 Dictated By: Alvaro Carvajal II, MD 12/11/23 1159 Signed By: 12/11/23 1201 Normal [facility] Physician [facility] MG MAMM SCREEN 3D DAVID CADon 01-03-2023 MG MAMM SCREEN 3D DAVID CAD Patient: BERNARD PONCE Exam Date: 01/03/2023 : 1945 Gender:F Ordering : [facility] Admission #: [id number] Family : Order #: [id number] CLICK HERE TO VIEW EXAM RADIOLOGY REPORT [...] breast cancer at age 62. LOCATION: [facility] BREAST COMPOSITION: Scattered areas fibroglandular density. FINDINGS: [...] MD on 01/06/2023 at 09:57 Normal [facility] FREE T3on 12-16-2022 FREE T3 2.70 pg/mlL Normal 2.18-3.98 [facility] Comment on above: Performed By: #### T SH, FT3 #### [facility] [address] [place] [address] Dr. Glenny Sneed FREE T4on 12-16-2022 Free T4 [Mass/Vol] 0.92 ng/dL Normal 0.76-1.46 [facility] Comment on above: Performed By: #### F T4 #### [facility] [address] [place] [address] Dr. Glenny Sneed TSHon 12-16-2022 TSH 3.444 uIU/mL Normal 0.358-3.740 [facility] Comment on above: Performed By: #### T SH, FT3 #### [facility] [address] [place] [address] Dr. Glenny Sneed CBC AUTO DIFFon 11-07-2022 BASO # 0.1 103/ul Normal 0.0-0.1 [facility] Comment on above: Performed By: #### T SH, FT3 #### [facility] [address] [place] [address] Dr. Glenny Sneed Basophils/100 WBC (Bld) 1.2 % Normal 0.2-2.0 [facility] Comment on above: Performed By: #### T SH, FT3 #### [facility] [address] [place] [address] Dr. Glenny Sneed EO # 0.2 103/ul Normal 0.0-0.7 [facility] Comment on above: Performed By: #### T SH, FT3 #### [facility] [address] [place] [address] Dr. Glenny Sneed Eosinophils/100 WBC (Bld) 2.8 % Normal 0.9-7.0 [facility] Comment on above: Performed By: #### T SH, FT3 #### [facility] [address] [place] [address] Dr. Glenny Sneed Erythrocyte distribution width (RBC) [Ratio] 13.5 % Normal 11.0-15.0 [facility] Comment on above: Performed By: #### T SH, FT3 #### [facility] [address] [place] [address] Dr. Glenny Sneed Hematocrit (Bld) [Volume fraction] 40.3 % Normal 36.0-48.0 [facility] Comment on above: Performed By: #### T SH, FT3 #### [facility] [address] [place] [address] Dr. Glenny Sneed Hemoglobin (Bld) [Mass/Vol] 12.9 g/dL Normal 12.0-16.0 [facility] Comment on above: Performed By: #### T SH, FT3 #### [facility] [address] [place] [address] Dr. Glenny Sneed IG # 0.01 10e3/ul Normal 0.00-0.03 [facility] Comment on above: Performed By: #### T SH, FT3 #### [facility] [address] [place] [address] Dr. Glenny Sneed IG % 0.2 % Normal 0.0-0.5 [facility] Comment on above: Performed By: #### T SH, FT3 #### [facility] [address] [place] [address] Dr. Glenny Sneed LYMPH # 2.5 103/ul Normal 1.2-3.8 [facility] Comment on above: Performed By: #### T SH, FT3 #### [facility] [address] [place] [address] Dr. Glenny Sneed Lymphocytes/100 WBC (Bld) 38.2 % Normal 20.5-60.0 [facility] Comment on above: Performed By: #### T SH, FT3 #### [facility] [address] [place] [address] Dr. Glenny Sneed MANUAL DIFF REQ NO Normal [facility] Comment on above: Performed By: #### T SH, FT3 #### [facility] [address] [place] [address] Dr. Glenny Sneed MCH (RBC) [Entitic mass] 27.2 pg Normal 26.7-34.0 [facility] Comment on above: Performed By: #### T SH, FT3 #### [facility] [address] [place] [address] Dr. Glenny Sneed MCHC (RBC) [Mass/Vol] 32.0 g/dL Normal 29.9-35.2 [facility] Comment on above: Performed By: #### T SH, FT3 #### [facility] [address] [place] [address] Dr. Glenny Sneed MCV (RBC) [Entitic vol] 84.8 fL Normal 81.0-99.0 [facility] Comment on above: Performed By: #### T SH, FT3 #### [facility] [address] [place] [address] Dr. Glenny Sneed MONO # 0.6 103/ul Normal 0.3-0.8 [facility] Comment on above: Performed By: #### T SH, FT3 #### [facility] [address] [place] [address] Dr. Glenny Sneed Monocytes/100 WBC (Bld) 8.5 % Normal 1.7-12.0 [facility] Comment on above: Performed By: #### T SH, FT3 #### [facility] [address] [place] [address] Dr. Glenny Sneed NEUT # 3.2 103/ul Normal 1.4-6.5 [facility] Comment on above: Performed By: #### T SH, FT3 #### [facility] [address] [place] [address] Dr. Glenny Sneed Neutrophils/100 WBC (Bld) 49.1 % Normal 43.0-75.0 [facility] Comment on above: Performed By: #### T SH, FT3 #### [facility] [address] [place] [address] Dr. Glenny Sneed Platelet mean volume (Bld) [Entitic vol] 10.2 fL Normal 9.5-13.5 [facility] Comment on above: Performed By: #### T SH, FT3 #### [facility] [address] [place] [address] Dr. Glenny Sneed PLT 350 103/ul Normal 150-450 [facility] Comment on above: Performed By: #### T SH, FT3 #### [facility] [address] [place] [address] Dr. Glenny Sneed RBC 4.75 106/ul Normal 4.20-5.40 [facility] Comment on above: Performed By: #### T SH, FT3 #### [facility] [address] [place] [address] Dr. Glenny Sneed WBC 6.5 103/ul Normal 4.0-11.0 [facility] Comment on above: Performed By: #### T SH, FT3 #### [facility] [address] [place] [address] Dr. Glenny Sneed FREE T4on 11-07-2022 Free T4 [Mass/Vol] 1.15 ng/dL Normal 0.76-1.46 [facility] Comment on above: Performed By: #### F T4, VITAD #### [facility] [address] [place] [address] Dr. Glenny Sneed GLYCOHEMOGLOBIN A1Con 2022 ADA RECOMMENDATION SEE BELOW Normal [facility] Comment on above: Result Comment: ADA RECOMMENDED LIMIT 4.0 - 6.0 ADA THERAPEUTIC TARGET < 7.0 ACTION SUGGESTED > 7.0 Performed By: #### A 1C #### [facility] [address] [place] [address] Dr. Glenny Sneed Glucose [Mass/Vol] 120 mg/dL Normal [facility] Comment on above: Performed By: #### A 1C #### [facility] [address] [place] [address] Dr. Glenny Sneed HbA1c (Bld) [Mass fraction] 5.8 % Normal 4.5-6.2 [facility] Comment on above: Performed By: #### A 1C #### [facility] [address] [place] [address] Dr. Glenny Sneed LIPID PROFILEon 11-07-2022 CHOL-HDL RATIO NORM SEE BELOW Normal [facility] Comment on above: Result Comment: 3.3 - 4.4 LOW RISK 4.4 - 7.1 AVERAGE RISK 7.1 - 11.0 MODERATE RISK >11.0 HIGH RISK Performed By: #### L IPID, CMP, TSH #### [facility] [address] [place] [address] [address] Glenny Sneed Cholesterol [Mass/Vol] 185 mg/dL Normal <=200 [facility] Comment on above: Performed By: #### L IPID, CMP, TSH #### [facility] [address] [address] [address] Glenny Sneed Cholesterol in HDL [Mass/Vol] 63 mg/dL Critically high 40-60 [facility] Comment on above: Performed By: #### L IPID, CMP, TSH #### [facility] [address] [address] [address] Glenny Sneed Cholesterol in LDL [Mass/Vol] 87.6 mg/dL Normal [facility] Comment on above: Performed By: #### L IPID, CMP, TSH #### [facility] [address] [address] [address] Glenny Sneed Cholesterol.total/Ch olesterol in HDL [Mass ratio] 2.9 {ratio} Normal [facility] Comment on above: Performed By: #### L IPID, CMP, TSH #### [facility] [address] [place] [address] Dr. Glenny Sneed HDL NORMAL > or = 60 mg/dl - LO W CARDIOVASCULAR RISK <40 mg/dl - HIGH CARDIOVASCULAR RISK Normal [facility] Comment on above: Performed By: #### L IPID, CMP, TSH #### [facility] [address] [address] [address] Glenny Sneed LDL CALC NORMAL SEE BELOW Normal [facility] Comment on above: Result Comment: <100 mg/dl OPTIMAL 100 - 129 mg/dl NEAR OR ABOVE OPTIMAL 130 - 159 mg/dl BORDERLINE HIGH 160 - 189 mg/dl HIGH >190 mg/dl VERY HIGH Performed By: #### L IPID, CMP, TSH #### [facility] [address] [address] [address] Glenny Sneed Triglyceride [Mass/Vol] 172 mg/dL Critically high <=150 [facility] Comment on above: Performed By: #### L IPID, CMP, TSH #### [facility] [address] [place] [address] Dr. Glenny Sneed VLDL CALC 34.4 mg/dL Normal [facility] Comment on above: Performed By: #### L IPID, CMP, TSH #### [facility] [address] [place] [address] Dr. Glenny Sneed PROF 14(COMP METB)on 023 Albumin [Mass/Vol] 4.1 g/dL Normal 3.4-5.0 [facility] Comment on above: Performed By: #### L IPID, CMP, TSH #### [facility] [address] [place] [address] Dr. Glenny Sneed Albumin/Globulin [Mass ratio] 1.0 {ratio} Normal [facility] Comment on above: Performed By: #### L IPID, CMP, TSH #### [facility] [address] [place] [address] Dr. Glenny Sneed ALP [Catalytic activity/Vol] 77 U/L Normal 46-116 [facility] Comment on above: Performed By: #### L IPID, CMP, TSH #### [facility] [address] [place] [address] Dr. Glenny Sneed ALT [Catalytic activity/Vol] 33 U/L Normal 14-59 [facility] Comment on above: Performed By: #### L IPID, CMP, TSH #### [facility] [address] [place] [address] Dr. Glenny Sneed Anion gap [Moles/Vol] 13.1 mmol/L Normal [facility] Comment on above: Performed By: #### L IPID, CMP, TSH #### [facility] [address] [place] [address] Dr. Glenny Sneed AST [Catalytic activity/Vol] 22 U/L Normal 15-37 [facility] Comment on above: Performed By: #### L IPID, CMP, TSH #### [facility] [address] [place] [address] Dr. Glenny Sneed Bilirubin [Mass/Vol] 0.7 mg/dL Normal 0.2-1.0 [facility] Comment on above: Performed By: #### L IPID, CMP, TSH #### [facility] [address] [place] [address] Dr. Glenny Sneed Calcium [Mass/Vol] 10.0 mg/dL Normal 8.5-10.1 [facility] Comment on above: Performed By: #### L IPID, CMP, TSH #### [facility] [address] [place] [address] Dr. Glenny Sneed Chloride [Moles/Vol] 102 mmol/L Normal 98-107 [facility] Comment on above: Performed By: #### L IPID, CMP, TSH #### [facility] [address] [place] [address] Dr. Glenny Sneed CO2 [Moles/Vol] 29.9 mmol/L Normal 21.0-32.0 [facility] Comment on above: Performed By: #### L IPID, CMP, TSH #### [facility] [address] [place] [address] Dr. Glenny Sneed Creatinine [Mass/Vol] 0.66 mg/dL Normal 0.55-1.02 [facility] Comment on above: Performed By: #### L IPID, CMP, TSH #### [facility] [address] [place] [address] Dr. Glenny Sneed EGFR-AF EQUATORIAL GUINEAN >60 Normal >=60 [facility] Comment on above: Performed By: #### L IPID, CMP, TSH #### [facility] [address] [place] [address] Dr. Glenny Sneed EGFR-NON AF EQUATORIAL GUINEAN >60 Normal >=60 [facility] Comment on above: Performed By: #### L IPID, CMP, TSH #### [facility] [address] [place] [address] Dr. Glenny Sneed Globulin (S) [Mass/Vol] 4.0 g/dL Normal [facility] Comment on above: Performed By: #### L IPID, CMP, TSH #### [facility] [address] [address] [address] Glenny Sneed Glucose [Mass/Vol] 106 mg/dL Normal 74-106 [facility] Comment on above: Performed By: #### L IPID, CMP, TSH #### [facility] [address] [address] [address] Glenny Sneed Potassium [Moles/Vol] 4.0 mmol/L Normal 3.5-5.1 [facility] Comment on above: Performed By: #### L IPID, CMP, TSH #### [facility] [address] [address] [address] Glenny Sneed Protein [Mass/Vol] 8.1 g/dL Normal 6.4-8.2 [facility] Comment on above: Performed By: #### L IPID, CMP, TSH #### [facility] [address] [address] [address] Glenny Sneed Sodium [Moles/Vol] 141 mmol/L Normal 136-145 [facility] Comment on above: Performed By: #### L IPID, CMP, TSH #### [facility] [address] [address] [address] Glenny Sneed Urea nitrogen [Mass/Vol] 9.0 mg/dL Normal 7.0-18.0 [facility] Comment on above: Performed By: #### L IPID, CMP, TSH #### [facility] [address] [address] [address] Glenny Sneed Urea nitrogen/Creatinine [Mass ratio] 13.6 mg/mg Normal [facility] Comment on above: Performed By: #### L IPID, CMP, TSH #### [facility] [address] [address] [address] Glenny Sneed TSHon 11-07-2022 TSH 2.008 uIU/mL Normal 0.358-3.740 [facility] Comment on above: Performed By: #### L IPID, CMP, TSH #### [facility] [address] [address] [address] Glenny Sneed UA RANDOM W/MICROSCOPICon BACTERIA NONE SEEN Normal NONE SEEN [facility] Comment on above: Performed By: #### U AMIC #### [facility] [address] [address] [address] Glenny Sneed Bilirubin Ql (U) Negative Normal NEGATIVE [facility] Comment on above: Performed By: #### U AMIC #### [facility] [address] [address] [address] Glenny Sneed CAST NONE SEEN Normal NONE SEEN [facility] Comment on above: Performed By: #### U AMIC #### [facility] [address] [address] [address] Glenny Sneed Clarity (U) CLEAR Normal CLEAR [facility] Comment on above: Performed By: #### U AMIC #### [facility] [address] [place] [address] Dr. Glenny Sneed Color (U) LT. YELLOW Normal YELLOW [facility] Comment on above: Performed By: #### U AMIC #### [facility] [address] [place] [address] Dr. Glenny Sneed Crystals LM Nom (Urine sed) NONE SEEN Normal NONE SEEN [facility] Comment on above: Performed By: #### U AMIC #### [facility] [address] [place] [address] Dr. Glenny Sneed Epithelial cells LM Ql (Urine sed) NONE SEEN Normal NONE SEEN /RARE [facility] Comment on above: Performed By: #### U AMIC #### [facility] [address] [address] [address] Glenny Sneed Glucose Ql (U) Negative Normal NEGATIVE [facility] Comment on above: Performed By: #### U AMIC #### [facility] [address] [place] [address] Dr. Glenny Sneed Hemoglobin Ql (U) TRACE-INTACT Abnormal NEGATIVE [facility] Comment on above: Performed By: #### U AMIC #### [facility] [address] [place] [address] Dr. Glenny Sneed Ketones Ql (U) Negative Normal NEGATIVE [facility] Comment on above: Performed By: #### U AMIC #### [facility] [address] [address] [address] Glenny Sneed LEUKOCYTES Negative Normal NEGATIVE [facility] Comment on above: Performed By: #### U AMIC #### [facility] [address] [address] [address] Glenny Sneed MUCOUS NONE SEEN Normal NONE SEEN [facility] Comment on above: Performed By: #### U AMIC #### [facility] [address] [place] [address] Dr. Glenny Sneed Nitrite Ql (U) Negative Normal NEGATIVE [facility] Comment on above: Performed By: #### U AMIC #### [facility] [address] [place] [address] Dr. Glenny Sneed pH (U) 6.5 [pH] Normal 5-9 [facility] Comment on above: Performed By: #### U AMIC #### [facility] [address] [place] [address] Dr. Glenny Sneed RBC 0-2 Normal 0-2 [facility] Comment on above: Performed By: #### U AMIC #### [facility] [address] [place] [address] Dr. Glenny Sneed SPEC GRAVITY <=1.005 Abnormal 1.005-<=1.025 [facility] Comment on above: Performed By: #### U AMIC #### [facility] [address] [place] [address] Dr. Glenny Sneed UA PROTEIN Negative Normal NEGATIVE/ TRACE [facility] Comment on above: Performed By: #### U AMIC #### [facility] [address] [address] [address] Glenny Sneed Urobilinogen Qn (U) 0.2 {Justice'U}/dL Normal 0.2 - 1. 0 [facility] Comment on above: Performed By: #### U AMIC #### [facility] [address] [place] [address] Dr. Glenny Sneed WBC NONE SEEN Normal NONE SEEN [facility] Comment on above: Performed By: #### U AMIC #### [facility] [address] [place] [address] Dr. Glenny Sneed VITAMIN D 25 OHon 11-07-2022 VIT D 25-OH 35.2 ng/mL Normal [facility] Comment on above: Performed By: #### F T4, VITAD #### [facility] [address] [place] [address] Dr. Glenny Sneed VIT D RANGES SEE BELOW Normal [facility] Comment on above: Result Comment: <20 ng/mL Vit D deficient 20 - <30 ng/mL Vit D insufficient 30 - 100 ng/mL Vit D sufficient >100 ng/mL Potential Toxicity Performed By: #### F T4, VITAD #### [facility] [address] [place] [address] Dr. Glenny Sneed HEPATITIS C ANTIBODYon 05-10 Hep C Virus Ab <0.1 Normal 0.0-0.9 [facility] Comment on above: Result Comment: Nega [...] Hepatitis C Virus (HCV) RNA, Diagnosis, CORTES ([id number]) and Hepatitis C Virus (HCV) Antibody with reflex to Quantitative Real-time PCR ([id number]). Performed By: #### T SH, FT3 #### [facility] [address] [place] [address] Dr. Glenny Sneed LIPID PROFILEon 05-08-2022 CHOL-HDL RATIO NORM SEE BELOW Normal [facility] Comment on above: Result Comment: 3.3 - 4.4 LOW RISK 4.4 - 7.1 AVERAGE RISK 7.1 - 11.0 MODERATE RISK >11.0 HIGH RISK Performed By: #### T SH, FT3 #### [facility] [address] [place] [address] Dr. Glenny Sneed Cholesterol [Mass/Vol] 173 mg/dL Normal <=200 [facility] Comment on above: Performed By: #### T SH, FT3 #### [facility] [address] [address] [address] Glenny Sneed Cholesterol in HDL [Mass/Vol] 67 mg/dL Critically high 40-60 [facility] Comment on above: Performed By: #### T SH, FT3 #### [facility] [address] [address] [address] Glenny Sneed Cholesterol in LDL [Mass/Vol] 77.8 mg/dL Normal [facility] Comment on above: Performed By: #### T SH, FT3 #### [facility] [address] [address] [address] Glenny Sneed Cholesterol.total/Ch olesterol in HDL [Mass ratio] 2.6 {ratio} Normal [facility] Comment on above: Performed By: #### T SH, FT3 #### [facility] [address] [place] [address] Dr. Glenny Sneed HDL NORMAL > or = 60 mg/dl - LO W CARDIOVASCULAR RISK <40 mg/dl - HIGH CARDIOVASCULAR RISK Normal [facility] Comment on above: Performed By: #### T SH, FT3 #### [facility] [address] [place] [address] Dr. Glenny Sneed LDL CALC NORMAL SEE BELOW Normal [facility] Comment on above: Result Comment: <100 mg/dl OPTIMAL 100 - 129 mg/dl NEAR OR ABOVE OPTIMAL 130 - 159 mg/dl BORDERLINE HIGH 160 - 189 mg/dl HIGH >190 mg/dl VERY HIGH Performed By: #### T SH, FT3 #### [facility] [address] [address] [address] Glenny Sneed Triglyceride [Mass/Vol] 141 mg/dL Normal <=150 [facility] Comment on above: Performed By: #### T SH, FT3 #### [facility] [address] [place] [address] Dr. Glenny Sneed VLDL CALC 28.2 mg/dL Normal [facility] Comment on above: Performed By: #### T SH, FT3 #### [facility] [address] [place] [address] Dr. Glenny Sneed LIVER PROFILEon 05-08-2022 Albumin [Mass/Vol] 4.0 g/dL Normal 3.4-5.0 [facility] Comment on above: Performed By: #### T SH, FT3 #### [facility] [address] [place] [address] Dr. Glenny Sneed Albumin/Globulin [Mass ratio] 1.0 {ratio} Normal [facility] Comment on above: Performed By: #### T SH, FT3 #### [facility] [address] [place] [address] Dr. Glenny Sneed ALP [Catalytic activity/Vol] 77 U/L Normal 46-116 [facility] Comment on above: Performed By: #### T SH, FT3 #### [facility] [address] [place] [address] Dr. Glenny Sneed ALT [Catalytic activity/Vol] 39 U/L Normal 14-59 [facility] Comment on above: Performed By: #### T SH, FT3 #### [facility] [address] [place] [address] Dr. Glenny Sneed AST [Catalytic activity/Vol] 20 U/L Normal 15-37 [facility] Comment on above: Performed By: #### T SH, FT3 #### [facility] [address] [place] [address] Dr. Glenny Sneed BILI, CONJUGATED 0.1 mg/dL Normal 0.0-0.2 [facility] Comment on above: Performed By: #### T SH, FT3 #### [facility] [address] [place] [address] Dr. Glenny Sneed Bilirubin [Mass/Vol] 0.7 mg/dL Normal 0.2-1.0 [facility] Comment on above: Performed By: #### T SH, FT3 #### [facility] [address] [place] [address] Dr. Glenny Sneed Globulin (S) [Mass/Vol] 4.0 g/dL Normal [facility] Comment on above: Performed By: #### T SH, FT3 #### [facility] [address] [address] [address] Glenny Sneed Protein [Mass/Vol] 8.0 g/dL Normal 6.4-8.2 [facility] Comment on above: Performed By: #### T SH, FT3 #### [facility] [address] [place] [address] Dr. Glenny Sneed LIVER PROFILEon 02-13-2022 Albumin [Mass/Vol] 3.9 g/dL Normal 3.4-5.0 [facility] Comment on above: Performed By: #### T SH, FT3 #### [facility] [address] [place] [address] Dr. Glenny Sneed Albumin/Globulin [Mass ratio] 1.0 {ratio} Normal [facility] Comment on above: Performed By: #### T SH, FT3 #### [facility] [address] [place] [address] Dr. Glenny Sneed ALP [Catalytic activity/Vol] 112 U/L Normal 46-116 [facility] Comment on above: Performed By: #### T SH, FT3 #### [facility] [address] [place] [address] Dr. Glenny Sneed ALT [Catalytic activity/Vol] 50 U/L Normal 14-59 [facility] Comment on above: Performed By: #### T SH, FT3 #### [facility] [address] [place] [address] Dr. Glenny Sneed AST [Catalytic activity/Vol] 25 U/L Normal 15-37 [facility] Comment on above: Performed By: #### T SH, FT3 #### [facility] [address] [place] [address] Dr. Glenny Sneed BILI, CONJUGATED 0.2 mg/dL Normal 0.0-0.2 [facility] Comment on above: Performed By: #### T SH, FT3 #### [facility] [address] [place] [address] Dr. Glenny Sneed Bilirubin [Mass/Vol] 0.7 mg/dL Normal 0.2-1.0 [facility] Comment on above: Performed By: #### T SH, FT3 #### [facility] [address] [place] [address] Dr. Glenny Sneed Globulin (S) [Mass/Vol] 4.0 g/dL Normal [facility] Comment on above: Performed By: #### T SH, FT3 #### [facility] [address] [place] [address] Dr. Glenny Sneed Protein [Mass/Vol] 7.9 g/dL Normal 6.4-8.2 [facility] Comment on above: Performed By: #### T SH, FT3 #### [facility] [address] [place] [address] Dr. Glenny Sneed SGOTon 01-23-2022 AST [Catalytic activity/Vol] 41 U/L Critically high 15-37 [facility] Comment on above: Performed By: #### T SH, FT3 #### [facility] [address] [place] [address] Dr. Glenny Sneed SGPTon 01-23-2022 ALT [Catalytic activity/Vol] 85 U/L Critically high 14-59 [facility] Comment on above: Performed By: #### T SH, FT3 #### [facility] [address] [place] [address] Dr. Glenny Sneed LIPID PROFILEon 01-07-2022 CHOL-HDL RATIO NORM SEE BELOW Normal [facility] Comment on above: Result Comment: 3.3 - 4.4 LOW RISK 4.4 - 7.1 AVERAGE RISK 7.1 - 11.0 MODERATE RISK >11.0 HIGH RISK Performed By: #### T SH, FT3 #### [facility] [address] [place] [address] Dr. Glenny Sneed Cholesterol [Mass/Vol] 144 mg/dL Normal <=200 [facility] Comment on above: Performed By: #### T SH, FT3 #### [facility] [address] [place] [address] Dr. Glenny Sneed Cholesterol in HDL [Mass/Vol] 63 mg/dL Critically high 40-60 [facility] Comment on above: Performed By: #### T SH, FT3 #### [facility] [address] [place] [address] Dr. Glenny Sneed Cholesterol in LDL [Mass/Vol] 56.2 mg/dL Normal [facility] Comment on above: Performed By: #### T SH, FT3 #### [facility] [address] [place] [address] Dr. Glenny Sneed Cholesterol.total/Ch olesterol in HDL [Mass ratio] 2.3 {ratio} Normal [facility] Comment on above: Performed By: #### T SH, FT3 #### [facility] [address] [place] [address] Dr. Glenny Sneed HDL NORMAL > or = 60 mg/dl - LO W CARDIOVASCULAR RISK <40 mg/dl - HIGH CARDIOVASCULAR RISK Normal [facility] Comment on above: Performed By: #### T SH, FT3 #### [facility] [address] [place] [address] Dr. Glenny Sneed LDL CALC NORMAL SEE BELOW Normal [facility] Comment on above: Result Comment: <100 mg/dl OPTIMAL 100 - 129 mg/dl NEAR OR ABOVE OPTIMAL 130 - 159 mg/dl BORDERLINE HIGH 160 - 189 mg/dl HIGH >190 mg/dl VERY HIGH Performed By: #### T SH, FT3 #### [facility] [address] [place] [address] Dr. Glenny Sneed Triglyceride [Mass/Vol] 124 mg/dL Normal <=150 [facility] Comment on above: Performed By: #### T SH, FT3 #### [facility] [address] [place] [address] Dr. Glenny Sneed VLDL CALC 24.8 mg/dL Normal [facility] Comment on above: Performed By: #### T ZENAIDA, FT3 #### [facility] [address] [place] [address] Dr. Glenny Holden 01-07-2022 AST [Catalytic activity/Vol] 53 U/L Critically high 15-37 [facility] Comment on above: Performed By: #### T SH, FT3 #### [facility] [address] [address] [address] Glenny Sneed [facility] 01-07-2022 ALT [Catalytic activity/Vol] 108 U/L Critically high 14 [facility] Comment on above: Performed By: #### T , FT3 #### [facility] [address] [place] [address] Dr. Glenny Sneed Vital Signs Date Time Vital Sign Value Performing Clinician Faci lity 11-05-2023 09:44-0500 Body height 154.9 cm Pamelamaria elena Moore MEDICAL LABORATORY TECHNICAL OFFICER Work Phone: [facility] 11-05-2023 09:44-0500 Body mass index (BMI) [Ratio] 30 kg/m2 Pamela Oscar MEDICAL LABORATORY TECHNICAL OFFICER Work Phone: [facility] 11-05-2023 09:44-0500 Body temperature 97.5 [degF] Pamela Oscar MEDICAL LABORATORY TECHNICAL OFFICER Work Phone: [facility] 11-05-2023 09:44-0500 Body weight 72.03 kg Pamela Oscar MEDICAL LABORATORY TECHNICAL OFFICER Work Phone: [facility] 11-05-2023 09:44-0500 Diastolic blood pressure 68 mm[Hg] Pamela Tavohsarahz MEDICAL LABORATORY TECHNICAL OFFICER Work Phone: [facility] 11-05-2023 09:44-0500 Heart rate 61 /min Pamela Oscar MEDICAL LABORATORY TECHNICAL OFFICER Work Phone: [facility] 11-05-2023 09:44-0500 Respiratory rate 18 /min Pamela Oscar MEDICAL LABORATORY TECHNICAL OFFICER Work Phone: [facility] 11-05-2023 09:44-0500 SaO2% (BldA) [Mass fraction] 98 % Pamela Oscar MEDICAL LABORATORY TECHNICAL OFFICER Work Phone: [facility] 11-05-2023 09:44-0500 Systolic blood pressure 138 mm[Hg] Pamela Oscar MEDICAL LABORATORY TECHNICAL OFFICER Work Phone: [facility] Healthcare Encounters Encounter Date Encounter Type Care Provider Facility Start: 06-24-2024 End: 06-25-2024 Refill Pamela Aichholz MEDICAL LABORATORY TECHNICAL OFFICER Work Phone: [facility] Comment on above: Hyperlipidemia, unsp ecified (CMS/HCC) Start: 06-10-2024 End: 06-10-2024 ambulatory PAMELA AICHHOLZ Not Available Start: 05-10-2024 End: 05-10-2024 ambulatory PAMELA AICHHOLZ Not Available Start: 04-29-2024 End: 04-29-2024 ambulatory MD Jorge Goncalves Work Phone: [facility] Work Phone: Start: 04-29-2024 End: 04-29-2024 Patient encounter procedure MD Jorge Goncalves Work Phone: [facility] Work Phone: Start: 04-29-2024 End: 04-29-2024 Patient encounter procedure MD Jorge Goncalves Work Phone: [facility] Start: 04-29-2024 End: 04-29-2024 ambulatory MD Jorge Goncalves Work Phone: [facility] Work Phone: Start: 04-14-2024 Patient encounter procedure Pamela Aichholz MEDICAL LABORATORY TECHNICAL OFFICER Work Phone: [facility] Start: 04-14-2024 End: 04-14-2024 ambulatory PAMELA AICHHOLZ Not Available Start: 04-01-2024 End: 04-01-2024 ambulatory EDWARD [facility] Start: 03-08-2024 End: 03-08-2024 ambulatory PAMELA AICHHOLZ Not Available Start: 12-22-2023 End: 01-21-2024 ambulatory BRAXTON ESCALANTE [facility] Start: 12-15-2023 End: 12-22-2023 [facility] Start: 12-11-2023 End: 12-11-2023 ambulatory MD Jorge Goncalves Work Phone: [facility] [facility] Work Phone: Start: 12-11-2023 End: 12-11-2023 Patient encounter procedure MD Jorge Goncalves Work Phone: [facility] Work Phone: Start: 11-05-2023 Bamboo flowsheet Pamela Aichholz MEDICAL LABORATORY TECHNICAL OFFICER Work Phone: [facility] Start: 11-05-2023 Bamboo flowsheet Pamela Aichholz MEDICAL LABORATORY TECHNICAL OFFICER Work Phone: [facility] Start: 11-05-2023 End: 11-05-2023 Office outpatient visit 25 minutes Pamela Moore MEDICAL LABORATORY TECHNICAL OFFICER Work Phone: [facility] Comment on above: Gastroesophageal ref lux disease, unspecified whether esophagitis present (Primary Dx); Age related osteoporosis, unspecified pathological fracture presence (CMS/[facility]); Vitamin D deficiency; Pre-diabetes; Hypothyroidism (acquired) (CMS/HCC); Mixed hyperlipidemia (CMS/[facility]); Encounter for screening mammogram for malignant neoplasm of breast; BMI 30.0-30.9,adult; Chronic left shoulder pain Start: 11-05-2023 End: 11-05-2023 ambulatory PAMELA AICHHOLZ Not Available Start: 09-17-2023 End: 09-17-2023 ambulatory PAMELA AICHHOLZ Not Available Start: 02-20-2023 ambulatory JORGE GONCALVES Facility :[facility] Start: 01-03-2023 End: 01-04-2023 ambulatory AUTOMOT[employer] EMISSIONS TECHNICIAN PAMELA AICHHOLZ Facility:[facility] Start: 12-16-2022 End: 12-17-2022 ambulatory AUTOMOTIVE [employer] EMISSIONS TECHNICIAN PAMELA AICHHOLZ Facility:[facility] Start: 11-07-2022 End: 11-08-2022 ambulatory AUTOMOTIVE [employer]HA[employer] EMISSIONS TECHNICIAN PAMELA AICHHOLZ Facility:[facility] Start: 05-08-2022 End: 05-09-2022 ambulatory AUTOMOTIVE EXHAUST EMISSIONS TECHNICIAN PAMELA AICHHOLZ Facility:[facility] Start: 02-13-2022 End: 02-14-2022 ambulatory AUTOMOTIVE EXHA[employer] EMISSIONS TECHNICIAN PAMELA AICHHOLZ Facility:[facility] Start: 01-23-2022 End: 01-24-2022 ambulatory AUTOMOTIVE EXHAUST EMISSIONS TECHNICIAN PAMELA MOORE Facility:[facility] Start: 01-07-2022 End: 01-08-2022 ambulatory AUTOMOTIVE EXHAUST EMISSIONS TECHNICIAN PAMELA MOORE Facility:[facility] Procedures Date Procedure Procedure Detail Performing Clinician Start: 04-29-2024 Plain X-ray of right shoulder MD Jorge Goncalves Work Phone: Start: 12-11-2023 Plain X-ray of left shoulder MD Jorge Goncalves Work Phone: Start: 05-23-2021 Colonoscopy Pamelamaria elena Harrington dora MEDICAL LABORATORY TECHNICAL OFFICER Work Phone: Plan of Treatment Date Care Activity Detail Author Start: 05-23-2031 Screening for malignant neoplasm of colon [facility] Start: 04-14-2025 Medicare Annual Wellness (AWV) Medicare Annual Wellness (AWV) [facility] Start: 09-09-2024 End: 09-09-2024 Patient encounter procedure 09/09/2024 9:00 AM EST Office Visit [facility] [address] [place] [address] Pamela Moore, MARIKA [address] [place] [id number] [facility] Start: 07-07-2024 End: 07-07-2024 Patient encounter procedure 07/07/2024 10:30 AM EDT Procedure Visit [facility] [address] [place] [address] Pamela Moore, MARIKA [address] [place] [address] [facility] Start: 05-08-2024 Medicare Annual Wellness (AWV) Medicare Annual Wellness (AWV) [facility] Start: 04-29-2024 Plain X-ray of right shoulder XR shoulder RT min 2V* [facility] Start: 04-29-2024 XR Shoulder - right Views [facility] Start: 03-08-2024 End: 03-08-2024 Patient encounter procedure 03/08/2024 9:40 AM EDT Office Visit [facility] [address] [place] [address] Pamela Moore NP [address] [place] [address] [facility] Start: 01-05-2024 End: 01-03-2025 MG Breast - bilateral Screening Bilateral screening mammogram Imaging Routine Encounter for screening mammogram for malignant neoplasm of breast Expected: 01/05/2024 (Approximate), Expires: 01/03/2025 [facility] Comment on above: Expected: 01/05/2024 (Approximate), Expi res: 01/03/2025 Start: 12-11-2023 Plain X-ray of left shoulder XR shoulder LT min 2V* [facility] Start: 12-11-2023 XR Shoulder - left Views [facility] Start: 11-05-2023 End: 11-05-2024 25-hydroxyvitamin D3 [Mass/volume] in Serum or Plasma Vitamin D 25 hydroxy Lab Routine Vitamin D deficiency Expected: 11/05/2023 (Approximate), Expires: 11/05/2024 [facility] Comment on above: Expected: 11/05/2023 (Approximate), Expi res: 11/05/2024 Start: 11-05-2023 End: 11-05-2024 CBC W Auto Differential panel - Blood CBC and differential Lab Routine Gastroesophageal reflux disease, unspecified whether esophagitis present Expected: 11/05/2023 (Approximate), Expires: 11/05/2024 [facility] Work Phone: Comment on above: Expected: 11/05/2023 (Approximate), Expi res: 11/05/2024 Start: 11-05-2023 End: 11-05-2024 Comprehensive metabolic 2000 panel - Serum or Plasma Comprehensive metabolic panel Lab Routine Gastroesophageal reflux disease, unspecified whether esophagitis present Age related osteoporosis, unspecified pathological fracture presence (CMS/HCC) Vitamin D deficiency Pre-diabetes Mixed hyperlipidemia (CMS/HCC) Expected: 11/05/2023 (Approximate), Expires: 11/05/2024 [facility] Comment on above: Expected: 11/05/2023 (Approximate), Expi res: 11/05/2024 Start: 11-05-2023 End: 11-05-2024 DXA Skeletal system Views for bone density DEXA bone density Imaging Routine Age related osteoporosis, unspecified pathological fracture presence ([facility]) Expected: 11/05/2023 (Approximate), Expires: 11/05/2024 [facility] Comment on above: Expected: 11/05/2023 (Approximate), Expi res: 11/05/2024 Start: 11-05-2023 End: 11-05-2024 Hemoglobin A1c measurement Hemoglobin A1c Lab Routine Pre-diabetes Expected: 11/05/2023 (Approximate), Expires: 11/05/2024 [facility] Comment on above: Expected: 11/05/2023 (Approximate), Expi res: 11/05/2024 Start: 11-05-2023 End: 11-05-2024 Lipid 1996 panel - Serum or Plasma Lipid panel Lab Routine Pre-diabetes Hypothyroidism (acquired) ([facility]) Mixed hyperlipidemia ([facility]) Expected: 11/05/2023 (Approximate), Expires: 11/05/2024 [facility] Comment on above: Expected: 11/05/2023 (Approximate), Expi res: 11/05/2024 Start: 11-05-2023 End: 11-05-2024 Microalbumin/Creatinine panel in random Urine Microalbumin / creatinine, urine ratio Lab Routine Pre-diabetes Expected: 11/05/2023 (Approximate), Expires: 11/05/2024 [facility] Comment on above: Expected: 11/05/2023 (Approximate), Expi res: 11/05/2024 Start: 11-05-2023 End: 11-05-2024 Urinalysis complete panel - Urine Urinalysis with reflex microscopic (clean catch) Lab Routine Pre-diabetes Expected: 11/05/2023 (Approximate), Expires: 11/05/2024 [facility] Comment on above: Expected: 11/05/2023 (Approximate), Expi res: 11/05/2024 Start: 11-05-2023 End: 11-05-2023 Patient encounter procedure 11/05/2023 9:40 AM EST Office Visit [facility] [address] [place] [address] Pamela Moore NP [address] [place] [address] Gastroesophageal reflux disease, unspecified whether esophagitis present (Primary Dx); Age related osteoporosis, unspecified pathological fracture presence (CMS/HCC); Vitamin D deficiency; Pre-diabetes; Hypothyroidism (acquired) (CMS/HCC); Mixed hyperlipidemia (CMS/HCC); Encounter for screening mammogram for malignant neoplasm of breast [facility] Comment on above: Gastroesophageal reflux disease, unspeci fied whether esophagitis present (Primary Dx); Age related osteoporosis, unspecified pathological fracture presence (CMS/HCC); Vitamin D deficiency; Pre-diabetes; Hypothyroidism (acquired) (CMS/HCC); Mixed hyperlipidemia (CMS/HCC); Encounter for screening mammogram for malignant neoplasm of breast Start: 05-23-2023 Influenza vaccination Influenza Vaccine (#1) [facility] Start: 2012 Pneumococcal Vaccine: 65+ Years (1 - PCV) Pneumococcal Vaccine: 65+ Years (1 - PCV) [facility] Start: 1945 Screening for malignant neoplasm of colon [facility] Payers Date Payer Category Payer Self-pay [id number] 2021 Medicare ANTHEM MEDICARE ADVANTAGE ANTHEM MEDICARE ADVANTAGE [id number] 2021-Present [address] [place] [address] [id number] 1959 Unknown [id number] 1945 Unknown [id number] 2.16.840.1.460580.3.579.2.5 93 1947 Unknown [id number] 2.16.840.1.106945.3.579.2.5 93 1947 Unknown [id number] 2.16.840.1.591269.3.579.2.5 93 1947 Unknown [id number] 2.16.840.1.234343.3.579.2.5 93 1947 Unknown [id number] 2.16.840.1.209737.3.579.2.5 93 1947 Unknown [id number] 2.16.840.1.747733.3.579.2.5 93 1947 Unknown [id number] 2.16.840.1.461561.3.579.2.5 93 1947 Unknown [id number] 2.16.840.1.239560.3.579.2.7 18 1947 Unknown [id number] 2.16.840.1.533834.3.579.2.1 286 1947 Unknown [id number] 2.16.840.1.568292.3.579.2.1 286 1947 Unknown [id number] 2.16.840.1.594642.3.579.2.1 286 1947 Unknown [id number] 2.16.840.1.736749.3.579.2.1 259 1945 Unknown [id number] 2.16.840.1.594585.3.579.2.1 259 1947 Unknown [id number] 2.16.840.1.394797.3.579.2.1 259 1947 Unknown [id number] 2.16.840.1.508619.3.579.2.1 259 1947 Unknown [id number] 2.16.840.1.891601.3.579.2.1 259 1947 Unknown [id number] 2.16.840.1.391864.3.579.2.1 259 Medicaid Medicaid [id number] Medicare Medicare [id number] Unknown [id number] 2.16.840.1.055246.3.579.2.5 31 Unknown [id number] 2.16.840.1.252102.3.579.2.5 31 Worker's Compensation [id number] Social History Date Type Detail Facility Start: 10-04-2021 End: 01-31-2023 Tobacco smoking status NHIS Never smoked tobacco [facility] Start: 01-31-2023 Tobacco use and exposure Smokeless tobacco non-user [facility] Start: 11-05-2023 End: 06-10-2024 Alcohol intake Ex-drinker (finding) [facility] Start: 09-17-2023 End: 04-14-2024 History of Social function [facility] Start: 09-17-2023 End: 04-14-2024 Tobacco use panel [facility] Start: 03-15-2023 Alcohol Comment Caffeine Intak e: more then 4 cups/day [facility] Start: 1945 Sex Assigned At Not on file [facility] Start: 1945 Sex Assigned At Female F [facility] History of Present illness Narrative 11-05-2023 Pamela Moore NP - 11/05/2023 10:46 AM Donell Moore NP - 11/05/2023 10:45 AM Donell Moore NP - 11/05/2023 10:45 AM Donell Moore NP - 11/05/2023 10:44 AM EST Note Date & Type Note Facility 11-05-2023 History of Presen t illness Narrative Associated Problem(s): Chronic left shoulder pain Will refer to Dr De La Fuente in [place] per pt request Associated Problem(s): Encounter for [...] TUNNEL RELEASE 2013 SECTION, LOW TRANSVERSE 1970, 1974 KNEE SURGERY Arthroscopy x3 TOTAL KNEE ARTHROPLASTY [...] refer to Dr De La Fuente in [place] per pt request Relevant Orders Ambulatory referral to Orthopaedic Surgery documented in this encounter [facility] Evaluation note Note Date & Type [...] Date Primary osteoarthritis of left shoulder acute [facility] Work Phone: Evaluation note Note Date & Type Note Facility Evaluation note Diagnosis Onset Date Primary osteoarthritis of left shoulder acute Primary osteoarthritis, right shoulder acute Rotator cuff syndrome of right shoulder acute [facility] Work Phone: Evaluation note Note Date & Type Note Facility Evaluation note Diagnosis Hyperlipidemia, unspecified (CMS/HCC) documented in this encounter [facility] Reason for referral (narrative) Consultation (Routine) - Pending Review Note Date & Type Note Facility Reason for referral (narrati ve) Specialty Diagnoses / Procedures Referred By Lisa t Referred To Contact Orthopaedic Surgery Diagnoses Chronic left shoulder pain Pamela Moore, MARIKA [address] [place] [address] Ziggy De La Fuente MD [address] [place] [address] Referral ID Status Reason Start Date Expiration Date Visits Requested Visits Authorized [id number] Pending Review Specialty Services Required 11/05/2023 05/03/2024 1 1 [facility] Summary Purpose Family History Relationship Condition Age at Onset Recorded Date/T sweetie father Heart disease Unknown Not Specified Heart disease Unknown Diabetes mellitus Unknown Relationship Condition Age at Onset Recorded Date/T sweetie father Heart disease Unknown mother Heart disease Unknown Diabetes mellitus Unknown Advance Directives Advance Directive Response Recorded Date/ Time Advance Directives Yes June 26, 2017 8:59am Chief Complaint and Reason for Visit Chief Complaint CONSULT PAMELA Ovalle LT CHRONIC SHOULDER PAIN, NX M25.512 - Pain in left shoulder Reason for Visit Primary osteoarthrit is of left shoulder Chief Complaint M25.511 - Pain in ri ght shoulder 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 Reason for Visit Primary osteoarthrit is of left shoulder Primary osteoarthritis, right shoulder Rotator cuff syndrome of right shoulder Additional Source Comments INFORMATION SOURCE (unrecogn ized section and content) DATE CREATED AUTHOR 01/06/2023 [facility] DATE CREATED AUTHOR AUTHOR'S ORGANIZ ATION 02/28/2023 [facility] DATE CREATED AUTHOR AUTHOR'S ORGANIZ ATION 01/22/2024 [facility] DATE CREATED AUTHOR AUTHOR'S ORGANIZ ATION 04/07/2024 [facility] DATE CREATED AUTHOR AUTHOR'S ORGANIZ ATION 05/01/2024 [facility] DATE CREATED AUTHOR AUTHOR'S ORGANIZ ATION 06/12/2024 [facility] EPIC Care Teams (unrecognized sec tion and content) Team Status: Active Member Role Status Dates Jorge Goncalves MD Primary Care Provider Active Team Status: Inactive Member Role Status Dates Jorge Goncalves MD Primary Care Provider Active S tart: April 29, 2024 End: April 29, 2024 Braxton Escalante DO Attending Provider Active St art: April 29, 2024 End: April 29, 2024 Team Status: Active Member Role Status Dates Jorge Goncalves MD Primary Care Provider Active S tart: April 29, 2024 Braxotn Escalante DO Attending Provider Active St art: April 29, 2024 [employer] Relationship Specialty Start Date End Date Jorge Goncalves MD [address] [place] [phone] PCP - General Family Medicine 11/05/23 [employer] Relationship Specialty Start Date End Date Jorge Goncalves MD [address] [place] [phone] PCP - General Family Medicine 11/05/23 Team Status: Inactive Member Role Status Dates [...] Provider Active St art: December 11, 2023 [employer] Relationship Specialty Start Date End Date Jorge Goncalves MD [address] [place] [phone] PCP - General Family Medicine 11/05/23 Pamela Moore NP [address] [place] [phone] PCP - Ankit MURRY 04/22/24 Goals (unrecognized section and content) Goals may be documented in a n alternate sectionGoals may be documented in an alternate sectionGoals may be documented in an alternate sectionGoals may be documented in an alternate section Reason for Visit (unrecogniz ed section and content) Reason Onset Date Comments Med Refill 06/24/2024 FOR RECORDS PERTAINING TO PATIENTS WHO ARE [...] BE BASED ON THE PRIMARY CLINICAL RECORDS. [employer] [facility]. provides no warranty or guarantee of the accuracy or completeness of information in this document.
[2024-07-13 11:09] LABS: Age Gdln ACOG Testing Note (.); Pap IG (Image Guided) Note (.)
== END 2024-07-07 20:19 | disposition home or self-care (01) ==
LOC: LAB 20:18
PROVIDERS: PCP Nurse Practitioner; Visit Provider Nurse Practitioner
DX: Z01.419 Encounter for gynecological examination (general) (routine) without abnormal findings (principal)
CPT/HCPCS: 88175

== ENCOUNTER 2024-07-28 11:15 | Outpatient (OUT) | payer MEDICARE, SELFPAY ==
--- NOTE | 2024-07-28 11:17 | US_ITS ---
[address] [address] Patient Name: BERNARD PONCE MRN: [id number] date: 1945 Sex: F Assigned Patient Location: Current Patient Location: Accession/Order Number: [id number] Exam Date: 07/28/2024 11:18 Report Date: 07/29/2024 06:48 At the request of: LOS RICE Procedure: US pelvis transvaginal EXAMINATION: US pelvis transvaginal HISTORY: Pelvic Pain ; chronic bilateral pelvic pain COMPARISON: No relevant comparison available. TECHNIQUE: Transabdominal and/or transvaginal sonographic examination was performed as indicated by examination type. FINDINGS: UTERUS: Normal size and contour. Within anterior uterine wall is a 5 mm rounded hyperechoic area, likely a leiomyoma. Uterus size: 5.4 x 2.0 x 3.1 cm ENDOMETRIUM: Normal homogeneous appearance. Endometrial thickness: 3 mm RIGHT OVARY: Not seen. LEFT OVARY: Not seen. CUL-DE-SAC: Unremarkable. No significant free fluid. BLADDER: Unremarkable. OTHER: None. US/US pelvis transvaginal IMPRESSION: 1. No acute or suspicious findings to account for patient's symptoms. 2. Anterior uterine wall small 5 mm mass, likely a leiomyoma. Electronically authenticated by: BRAYDEN LARA Date: 07/29/2024 06:48
--- OUTSIDE RECORDS SUMMARY | 2024-07-28 11:36 | XMS_ITS | CCD ---
Author Organization [facility] Care Team Providers Care Chlorine Cells Operator Name Role Phone AICHHOLZ, ACIDIZER WATER WELL PAMELA Admitting Unavailable AICHHOLZ, ACIDIZER WATER WELL PAMELA Attending Unavailable AICHHOLZ, ACIDIZER WATER WELL PAMELA Primary Care Unavailable AICHHOLZ, ACIDIZER WATER WELL PAMELA Consulting Unavailable AICHHOLZ, ACIDIZER WATER WELL PAMELA Admitting Unavailable AICHHOLZ, ACIDIZER WATER WELL PAMELA Attending Unavailable AICHHOLZ, ACIDIZER WATER WELL PAMELA Primary Care Unavailable AICHHOLZ, ACIDIZER WATER WELL PAMELA Consulting Unavailable AICHHOLZ, ACIDIZER WATER WELL PAMELA Admitting Unavailable AICHHOLZ, ACIDIZER WATER WELL PAMELA Attending Unavailable AICHHOLZ, ACIDIZER WATER WELL PAMELA Primary Care Unavailable AICHHOLZ, ACIDIZER WATER WELL PAMELA Consulting Unavailable AICHHOLZ, ACIDIZER WATER WELL PAMELA Admitting Unavailable AICHHOLZ, ACIDIZER WATER WELL PAMELA Attending Unavailable AICHHOLZ, ACIDIZER WATER WELL PAMELA Primary Care Unavailable AICHHOLZ, ACIDIZER WATER WELL PAMEAL Consulting Unavailable AICHHOLZ, ACIDIZER WATER WELL PAMELA Admitting Unavailable AICHHOLZ, ACIDIZER WATER WELL PAMELA Attending Unavailable AICHHOLZ, ACIDIZER WATER WELL PAMELA Primary Care Unavailable AICHHOLZ, ACIDIZER WATER WELL PAMELA Consulting Unavailable AICHHOLZ, ACIDIZER WATER WELL PAMELA Admitting Unavailable AICHHOLZ, ACIDIZER WATER WELL PAMELA Attending Unavailable AICHHOLZ, ACIDIZER WATER WELL PAMELA Primary Care Unavailable AICHHOLZ, ACIDIZER WATER WELL PAMELA Consulting Unavailable AICHHOLZ, ACIDIZER WATER WELL PAMELA Admitting Unavailable AICHHOLZ, ACIDIZER WATER WELL PAMELA Attending Unavailable AICHHOLZ, ACIDIZER WATER WELL PAMELA Primary Care Unavailable AICHHOLZ, ACIDIZER WATER WELL PAMELA Consulting Unavailable JORGE GONCALVES Primary Care Unavailable Tab Ibarra Admitting Unavail Tab Jauregui Attending Unavail Jorge Quijano MD Primary Care Provider MD Jorge Goncalves Primary Care Provider [phone] DO Braxton Escalante Attending Provider [phone] PAMELA MOORE Primary Care Unavailable BRAXTON ESCALANTE Referring Unavailable BRAXTON ESCALANTE Referring Unavailable PAMELA MOORE Primary Care Unavailable EDWARD ALLAN Attending Unavailabl e PAMELA MOORE Referring Unavailable PAMELA MOORE Primary Care Unavailable MD Jorge Goncalves Primary Care Provider [phone] DO Braxton Escalante Attending Provider [phone] Braxton Escalante Attending Unavailable Jorge Goncalves Primary Care Unavailable Braxton Escalante Admitting Unavailable Braxton Escalante Attending Unavailable Jorge Goncalves Primary Care Unavailable Braxton Escalante Admitting Unavailable Aichholjulisa HAIRSTON, Pamela Unavailable AICHHOLZ, PAMELA Attending Unavailable AICHHOLZ, PAMELA Attending Unavailable AICHHOLZ, PAMELA Referring Unavailable AICHHOLZ, PAMELA Attending Unavailable AICHHOLZ, PAMELA Attending Unavailable AICHHOLZ, PAMELA Attending Unavailable AICHHOLZ, PAMELA Attending Unavailable AICHHOLZ, PAMELA Attending Unavailable Unallocated Nehemias CARDOSO Provider Primary Care Provi oksana Allergies Allergy Classification Reported Allergen(s) Allergy Type Date of Onset Reaction(s) Facility (3 sources) Ampicillin; Translations: [AMPICILLIN] Drug Allergy 02-10-2012 [facility] Repository (9 sources) Ampicillin Drug Allergy 02-18-2023 [facility] (1 source) Ampicillin Drug Allergy 10-04-2021 [facility] Repository Medications Current Medications Medication Drug Class(es) Dates Sig (Normalized) Sig (Original) [id number] 200 actuat albuterol 0.09 mg/actuat metered dose inhaler (11 sources) beta2-Adrenergic Agonist Start: 04-29-2024 Albuterol Sulfate [...] Active alendronic acid 70 mg oral tablet (11 sources) Bisphosphonate Start: 05-31-2024 End: 08-23-2024 alendronate [...] 0 Active atorvastatin 20 mg oral tablet (12 sources) HMG-CoA Reductase Inhibitor Start: 04-29-2024 Atorvastatin [...] 0 Active benzonatate 100 mg oral capsule (9 sources) Non-narcotic Antitussive take 1 capsule by mouth three times daily as needed benzonatate (Tessalon) 100 MG capsule Take 100 mg by mouth 3 (three) times a day as needed. Active chlorhexidine gluconate 1.2 mg/ml mouthwash (2 sources) Start: End: take 15 mL by mouth twice daily chlorhexidine (Peridex) 0.12 % solution rinse 15ml BY MOUTH TWICE DAILY 10/29/2023 07/07/2024 Discontinued (Therapy completed) cholecalciferol 0.05 mg oral tablet (15 sources) Vitamin D Start: cholecalciferol 50 MCG (2000 UT) tablet Indications: [...] / eicosapentaenoic acid 180 mg oral capsule (9 sources) take 1 capsule by mouth once daily omega-3 (fish oil) 1000 MG capsule Take 1 capsule by mouth 1 (one) time each day at the same time. Active fluticasone propionate 0.05 mg/actuat metered dose nasal spray (9 sources) Corticosteroid Start: 05-10-20 take 1 spray(s) nasal route in the morning fluticasone (Flonase) 50 MCG/ACT nasal spray Administer 1 spray into each nostril in the morning. 05/10/2019 Active furosemide 20 mg oral tablet (9 sources) Loop Diuretic furosemide (Lasi x) 20 MG tablet Take 20 mg by mouth if needed (prn). Active levothyroxine sodium 0.025 mg oral tablet (13 sources) l-Thyroxine Start: 07-13-20 24 End: 10-11-19 25 take 1 tablet by mouth before mealtime levothyroxine (Synthroid) 25 MCG tablet Indications: Hypothyroidism (acquired) (CMS/HCC) Take 1 tablet (25 mcg) by mouth in the morning. Take before meals. 90 tablet 07/13/2024 10/11/2024 Active Start: 03-19-2024 End: 10-05-2024 take 1 tablet by mouth before mealtime levothyroxine (Synthroid, Levoxyl) 50 MCG tablet Indications: Hypothyroidism (acquired) (CMS/HCC) Take 1 tablet (50 mcg) by mouth in the morning. Take before meals. 90 tablet 1 07/07/2024 07/13/2024 Discontinued (Therapy completed) take 1 tablet by dacia th before mealtime levothyroxine (Synthroid) 50 MCG tablet Take 50 mcg by mouth in the morning. Take before meals. 0 Active loratadine 10 mg disintegrating oral tablet (9 sources) take 1 tablet by dacia th once daily loratadine (Claritin Reditabs) 10 MG disintegrating tablet Take 10 mg by mouth Daily Pt taking OTC allergy relief 24hr 1 daily Active loratadine (Clar itin) 10 MG tablet Take 10 mg by mouth if needed for allergies 0 Active meclizine hydrochloride 25 mg oral tablet (6 sources) Antiemetic End: 07-07-2024 take 1 tablet by mouth four times daily as needed for dizziness meclizine (Antivert) 25 MG tablet Take 1 tablet by mouth 4 (four) times a day as needed for dizziness 07/07/2024 Discontinued (Therapy completed) Multiple Vitamin (MULTIVITAMIN ADULT PO) (9 sources) Multiple Vitamin (MULTIVITAMIN ADULT PO) Multivitamin Active Multiple Vitamin (MULTIVITAMIN ADULT PO) Multivitamin 0 Active papaya allergenic extract (9 sources) Non-Standardized Food Allergenic Extract Papaya 100 MG tablet Papaya Active Papaya 100 MG ta blet Papaya 0 Active Problems Active Problems Problem Classification Problem Date Documented Date Episodic/Chronic Abdominal pain (11 sources) Generalized abdominal pain; Translations: [Generalized abdominal pain] Onset: 03-08-2024 Resolved: 03-08-2024 03-08-2024 Episodic Anxiety disorders (6 sources) Generalized anxiety disorder; Translations: [Generalized anxiety disorder] Onset: 05-10-2024 05-10-2024 Chronic Blindness and vision defects (3 sources) Presbyopia; Translations: [Myopia, bilateral] Onset: 04-01-2024 Episodic Cataract (1 source) Age-related nuclear cataract, bilateral; Translations: [Age-related nuclear cataract, bilateral] Onset: 04-01-2024 Chronic Disorders of lipid metabolism (20 sources) Hyperlipidemia, unspecified; Translations: [Hyperlipidemia] Onset: 05-08-2022 Chronic Diverticulosis and diverticulitis (9 sources) Diverticulum of large intestine without hemorrhage; Translations: [Diverticulosis of large intestine without perforation or abscess without bleeding] Onset: 11-05-2023 11-05-2023 Chronic Esophageal disorders (20 sources) Laryngopharyngeal reflux; Translations: [Gastro-esophageal reflux disease without esophagitis] Onset: 01-31-2023 01-31-2023 Chronic Essential hypertension (6 sources) Essential hypertension; Translations: [Essential (primary) hypertension] Onset: 05-10-2024 05-10-2024 Chronic Nutritional deficiencies (12 sources) Vitamin D deficiency, unspecified; Translations: [Vitamin D deficiency] Onset: 11-13-2022 11-05-2023 Chronic Osteoarthritis (20 sources) Arthritis of right knee; Translations: [Unilateral primary osteoarthritis, right knee] Onset: 01-31-2023 01-31-2023 Chronic Osteoporosis (11 sources) Osteoporosis; Translations: [Age-related osteoporosis without current [...] unspecified] 04-29-2024 Episodic Other connective tissue disease (6 sources) Right rotator cuff syndrome; Translations: [Unspecified rotator cuff tear or rupture of right shoulder, not specified as traumatic] Onset: 05-10-2024 05-10-2024 Episodic Other ear and sense organ disorders (9 sources) Chronic non-infective otitis externa; Translations: [Other otitis externa, bilateral] Onset: 01-31-2023 01-31-2023 Chronic Other ear and sense organ disorders (9 sources) Hearing loss; Translations: [Unspecified hearing loss, unspecified ear] Onset: 01-31-2023 01-31-2023 Chronic Other ear and sense organ disorders (9 sources) Sensorineural hearing loss, bilateral; Translations: [Sensorineural hearing loss, bilateral] Onset: 01-31-2023 01-31-2023 Chronic Other eye disorders (1 source) Dry eye syndrome of bilateral lacrimal glands; Translations: [Dry eye syndrome of bilateral lacrimal glands] Onset: 04-01-2024 Episodic Other female genital disorders (5 sources) Vaginal discharge; Translations: [Other specified noninflammatory disorders of vagina] Onset: 07-07-2024 07-07-2024 Episodic Other non-traumatic joint disorders (3 sources) Pain in right shoulder; Translations: [Right shoulder pain] Onset: 04-29-2024 04-26-2024 Episodic Other nutritional; endocrine; and metabolic disorders (1 source) Obesity; Translations: [Obesity, unspecified] Onset: 09-17-2023 09-17-2023 Chronic Other nutritional; endocrine; and metabolic disorders (16 sources) Body mass index 30+ - obesity; Translations: [Body mass index (BMI) 30.0-30.9, adult] Onset: 11-05-2023 Resolved: 03-08-2024 11-05-2023 Chronic Other upper respiratory disease (9 sources) Chronic laryngitis; Translations: [Chronic laryngitis] Onset: 01-31-2023 01-31-2023 Chronic Other upper respiratory disease (9 sources) Allergic rhinitis; Translations: [Allergic rhinitis, unspecified] Onset: 11-05-2023 11-05-2023 Chronic Spondylosis; intervertebral disc disorders; other back problems (9 sources) Degeneration of cervical intervertebral disc; Translations: [Other cervical disc degeneration, unspecified cervical region] Onset: 11-05-2023 11-05-2023 Chronic Thyroid disorders (17 sources) Hypothyroidism, unspecified; Translations: [Acquired hypothyroidism] Onset: 12-16-2022 Chronic Unclassified (1 source) Eye Exam Onset: 04-01-2024 Past or Other Problems Problem Classification Problem Date Documented Da te Episodic/Chronic Diabetes mellitus without complication (12 sources) Prediabetes; Translations: [Prediabetes] Onset: 11-13-2022 11-05-2023 Episodic Immunizations and screening for infectious disease (1 source) Encounter for screening for other viral diseases; Translations: [ENC SCREENING FOR OTH VIRAL DZ] Onset: 05-09-2022 Episodic Mood disorders (6 sources) Mood disorders Onset: 04-14-2024 04-14-2024 Other circulatory disease (6 sources) Elevated blood pressure; Translations: [Elevated blood-pressure reading, without diagnosis of hypertension] Onset: 04-14-2024 Resolved: 05-10-2024 05-10-2024 Episodic Other connective tissue disease (9 sources) Triggering of digit; Translations: [Trigger finger, right ring finger] Onset: 11-05-2023 11-05-2023 Episodic Other gastrointestinal disorders (6 sources) Constipation; Translations: [Other constipation] Onset: 03-08-2024 03-08-2024 Episodic Other gastrointestinal disorders (6 sources) Abdominal bloating; Translations: [Abdominal distension (gaseous)] Onset: 03-08-2024 Resolved: 03-08-2024 03-08-2024 Episodic Other lower respiratory disease (9 sources) Cough; Translations: [Cough in adult] Onset: 11-05-2023 11-05-2023 Episodic Other non-traumatic joint disorders (10 sources) Chronic pain of left upper limb; Translations: [Pain in left shoulder] Onset: 11-05-2023 11-05-2023 Episodic Other non-traumatic joint disorders (5 sources) Pain in left shoulder; Translations: [Left shoulder pain] Onset: 12-11-2023 12-08-2023 Episodic Other screening for suspected conditions (not mental disorders or infectious disease) (20 sources) Other specified abnormal findings of blood chemistry; Translations: [Other abnormal blood chemistry] Onset: 02-13-2022 Episodic Otitis media and related conditions (9 sources) Dysfunction of left eustachian tube; Translations: [Unspecified Eustachian tube disorder, left ear] Onset: 01-31-2023 01-31-2023 Episodic Residual codes; unclassified (9 sources) Insomnia; Translations: [Insomnia, unspecified] Onset: 11-05-2023 11-05-2023 Episodic Results Test Name Value Interpretation Reference Range Facility IGP,APTIMA HPV,AGE GDLNon AGE GDLN ACOG TESTING Note . [facility] Comment on above: TESTS RESULT FLAG UN ITS REF RANGE LAB Clinician Provided Cytology Information Source.............Cervix;Endocervix No. of containers..01 ThinPrep Vial Age Algo ACOG Karla... Note 01 <21 or >65 or no age provided FLAG LEGEND: L-Low Normal,H-High Normal,LL-Alert Low,HH-Alert High <-Panic Low,>-Panic High,A-Abnormal,AA-Critical Abnormal Performed at: 01 =G [facility] [address] [place] [address] Prerna Arzate MD, PAP IG (IMAGE GUIDED) Note . [facility] Comment on above: TESTS RESULT FLAG UN ITS REF RANGE LAB DIAGNOSIS: 02 NEGATIVE FOR INTRAEPITHELIAL LESION OR MALIGNANCY. Specimen adequacy: 02 Satisfactory for evaluation. Endocervical and/or squamous metaplastic cells (endocervical component) are present. Performed by: 02 Pamela Gómez, Transport Company Manager ([facility]) . 02 Note: Note 03 The Pap smear is a screening test designed to aid in the detection of premalignant and malignant conditions of the uterine cervix. It is not a diagnostic procedure and should not be used as the sole means of detecting cervical cancer. Both false-positive and false-negative reports do occur. Test Methodology: Note 03 This liquid based ThinPrep(R) pap test was screened with the use of an image guided system. FLAG LEGEND: L-Low Normal,H-High Normal,LL-Alert Low,HH-Alert High <-Panic Low,>-Panic High,A-Abnormal,AA-Critical Abnormal Performed at: 02 KWCYT [facility] [address] [place] [phone] Martin Machado MD, [facility] [address] [phone] Prerna Arzate MD, Performed at: =G - [facility] [address] [id number] Physician Practice Market Manager: Prerna Arzate MD, Phone: [phone] Performed at: [facility] [address] [place], [place] [id number] Physician Practice Market Manager: Martin Machado MD, Phone: [phone] BROOM-ALONE CERVIX ENDOCERVIX [facility] VAGINITIS (HTRX)on 4 ATOPOBIUM VAGINAE 0 [facility] ATOPOBIUM VAGINAE Not detected [facility] BVAB 2,3 (BACTERIAL VAGINOSIS ASSOCIATED BACTERIA 2, 3); MOBILUNCUS SPP 0 [facility] BVAB 2,3 (BACTERIAL VAGINOSIS ASSOCIATED BACTERIA 2, 3); MOBILUNCUS SPP Not detected [facility] JANAY ALBICANS, PARAPSILOSIS, TROPICALIS 0 [facility] JANAY ALBICANS, PARAPSILOSIS, TROPICALIS Not detected [facility] JANAY GLABRATA 0 [facility] JANAY GLABRATA Not detected [facility] JANAY KRUSEI 0 [facility] JANAY KRUSEI Not detected [facility] CHLAMYDIA TRACHOMATIS 0 [facility] CHLAMYDIA TRACHOMATIS Not detected [facility] GARDNERELLA VAGINALIS 0 [facility] GARDNERELLA VAGINALIS Not detected [facility] HERPES SIMPLEX VIRUS 1 0 [facility] HERPES SIMPLEX VIRUS 1 Not detected [facility] HERPES SIMPLEX VIRUS 2 0 [facility] HERPES SIMPLEX VIRUS 2 Not detected [facility] MEGASPHAERA (TYPES 1, 2) 0 [facility] MEGASPHAERA (TYPES 1, 2) Not detected [facility] NEISSERIA GONORRHOEAE 0 [facility] NEISSERIA GONORRHOEAE Not detected [facility] TRICHOMONAS VAGINALIS 0 [facility] TRICHOMONAS VAGINALIS Not detected [facility] XR shoulder RT min 2V*on XR shoulder RT min 2V* [facility] [address] [place] [address] XRay Report Signed Patient: Bernard Ponce MR#: [id number] 2 : 1945 Acct:[id number] Age/Sex: 78 / F ADM Date: 04/29/24 Loc: [facility] Room: Type: [facility] CLI Attending Dr: Braxton Escalante DO [...] Ra Acosta M.D.04/29/2024 3:49 PM Dictation Location: [place] [address] Transcribed By: [facility] 04/29/24 1549 Dictated By: Ra Acosta DO 04/29/24 1548 Signed By: 04/29/24 1549 Normal [facility] XR shoulder LT min 2V*on XR shoulder LT min 2V* [facility] [place] [address] [place] [address] XRay Report Signed Patient: Bernard Ponce MR#: [id number] 2 : 1945 Acct:[id number] Age/Sex: 78 / F ADM Date: 12/11/23 Loc: [facility] Room: Type: [facility] CLI Attending Dr: Braxton Escalante DO [...] Alvaro Carvajal M.D.12/11/2023 12:01 PM Dictation Location: [place] [address] Transcribed By: [facility] 12/11/23 1201 Dictated By: Alvaro Carvajal II, MD 12/11/23 1159 Signed By: 12/11/23 1201 Normal [facility] MG MAMM SCREEN 3D DAVID CADon 01-03-2023 MG MAMM SCREEN 3D DAVID CAD Patient: BERNARD PONCE Exam Date: 01/03/2023 : 1945 Gender:F Ordering : COCO PAMELA [facility] Admission #: [id number] Family : Order #: [id number] CLICK HERE TO VIEW EXAM RADIOLOGY REPORT [...] at age 62. LOCATION: [facility] BREAST COMPOSITION: Scattered areas fibroglandular density. [...] 01/06/2023 at 09:57 Normal [facility] FREE T3on 12-16-2022 FREE T3 2.70 pg/mlL Normal 2.18-3.98 [facility] Comment on above: Performed By: #### T SH, FT3 #### [facility] [address] [place] [address] Dr. Glenny Sneed FREE T4on 12-16-2022 Free T4 [Mass/Vol] 0.92 ng/dL Normal 0.76-1.46 [facility] Comment on above: Performed By: #### F T4 #### [facility] [address] [place] [address] Dr. Glenny Sneed TSHon 12-16-2022 TSH 3.444 uIU/mL Normal 0.358-3.740 [facility] Comment on above: Performed By: #### T SH, FT3 #### [facility] [address] [place] [address] Dr. Glenny Sneed CBC AUTO DIFFon 11-07-2022 BASO # 0.1 103/ul Normal 0.0-0.1 [facility] Comment on above: Performed By: #### T SH, FT3 #### [facility] [address] [place] [address] Dr. Glenny Sneed Basophils/100 WBC (Bld) 1.2 % Normal 0.2-2.0 [facility] Comment on above: Performed By: #### T SH, FT3 #### [facility] [address] [place] [address] Dr. Glenny Sneed EO # 0.2 103/ul Normal 0.0-0.7 [facility] Comment on above: Performed By: #### T SH, FT3 #### [facility] [address] [place] [address] Dr. Glenny Sneed Eosinophils/100 WBC (Bld) 2.8 % Normal 0.9-7.0 [facility] Comment on above: Performed By: #### T SH, FT3 #### [facility] [address] [place] [address] Dr. Glenny Sneed Erythrocyte distribution width (RBC) [Ratio] 13.5 % Normal 11.0-15.0 [facility] Comment on above: Performed By: #### T SH, FT3 #### [facility] [address] [place] [address] Dr. Glenny Sneed Hematocrit (Bld) [Volume fraction] 40.3 % Normal 36.0-48.0 [facility] Comment on above: Performed By: #### T SH, FT3 #### [facility] [address] [place] [address] Dr. Glenny Sneed Hemoglobin (Bld) [Mass/Vol] 12.9 g/dL Normal 12.0-16.0 [facility] Comment on above: Performed By: #### T SH, FT3 #### [facility] [address] [place] [address] Dr. Glenny Sneed IG # 0.01 10e3/ul Normal 0.00-0.03 [facility] Comment on above: Performed By: #### T SH, FT3 #### [facility] [address] [place] [address] Dr. Glenny Sneed IG % 0.2 % Normal 0.0-0.5 [facility] Comment on above: Performed By: #### T SH, FT3 #### [facility] [address] [place] [address] Dr. Glenny Sneed LYMPH # 2.5 103/ul Normal 1.2-3.8 [facility] Comment on above: Performed By: #### T SH, FT3 #### [facility] [address] [place] [address] Dr. Glenny Sneed Lymphocytes/100 WBC (Bld) 38.2 % Normal 20.5-60.0 [facility] Comment on above: Performed By: #### T SH, FT3 #### [facility] [address] [place] [address] Dr. Glenny Sneed MANUAL DIFF REQ NO Normal [facility] Comment on above: Performed By: #### T SH, FT3 #### [facility] [address] [place] [address] Dr. Glenny Sneed MCH (RBC) [Entitic mass] 27.2 pg Normal 26.7-34.0 [facility] Comment on above: Performed By: #### T SH, FT3 #### [facility] [address] [place] [address] Dr. Glenny Sneed MCHC (RBC) [Mass/Vol] 32.0 g/dL Normal 29.9-35.2 [facility] Comment on above: Performed By: #### T SH, FT3 #### [facility] [address] [place] [address] Dr. Glenny Sneed MCV (RBC) [Entitic vol] 84.8 fL Normal 81.0-99.0 [facility] Comment on above: Performed By: #### T SH, FT3 #### [facility] [address] [place] [address] Dr. Glenny Sneed MONO # 0.6 103/ul Normal 0.3-0.8 [facility] Comment on above: Performed By: #### T SH, FT3 #### [facility] [address] [place] [address] Dr. Glenny Sneed Monocytes/100 WBC (Bld) 8.5 % Normal 1.7-12.0 [facility] Comment on above: Performed By: #### T SH, FT3 #### [facility] [address] [place] [address] Dr. Glenny Sneed NEUT # 3.2 103/ul Normal 1.4-6.5 [facility] Comment on above: Performed By: #### T SH, FT3 #### [facility] [address] [place] [address] Dr. Glenny Sneed Neutrophils/100 WBC (Bld) 49.1 % Normal 43.0-75.0 [facility] Comment on above: Performed By: #### T SH, FT3 #### [facility] [address] [place] [address] Dr. Glenny Sneed Platelet mean volume (Bld) [Entitic vol] 10.2 fL Normal 9.5-13.5 [facility] Comment on above: Performed By: #### T SH, FT3 #### [facility] [address] [place] [address] Dr. Glenny Sneed PLT 350 103/ul Normal 150-450 [facility] Comment on above: Performed By: #### T SH, FT3 #### [facility] [address] [place] [address] Dr. Glenny Sneed RBC 4.75 106/ul Normal 4.20-5.40 [facility] Comment on above: Performed By: #### T SH, FT3 #### [facility] [address] [place] [address] Dr. Glenny Sneed WBC 6.5 103/ul Normal 4.0-11.0 [facility] Comment on above: Performed By: #### T SH, FT3 #### [facility] [address] [place] [address] Dr. Glenny Sneed FREE T4on 11-07-2022 Free T4 [Mass/Vol] 1.15 ng/dL Normal 0.76-1.46 [facility] Comment on above: Performed By: #### F T4, VITAD #### [facility] [address] [place] [address] Dr. Glenny Sneed GLYCOHEMOGLOBIN A1Con 2022 ADA RECOMMENDATION SEE BELOW Normal [facility] Comment on above: Result Comment: ADA RECOMMENDED LIMIT 4.0 - 6.0 ADA THERAPEUTIC TARGET < 7.0 ACTION SUGGESTED > 7.0 Performed By: #### A 1C #### [facility] [address] [place] [address] Dr. Glenny Sneed Glucose [Mass/Vol] 120 mg/dL Normal [facility] Comment on above: Performed By: #### A 1C #### [facility] [address] [place] [address] Dr. Glenny Sneed HbA1c (Bld) [Mass fraction] 5.8 % Normal 4.5-6.2 [facility] Comment on above: Performed By: #### A 1C #### [facility] [address] [place] [address] Dr. Glenny Sneed LIPID PROFILEon 11-07-2022 CHOL-HDL RATIO NORM SEE BELOW Normal [facility] Comment on above: Result Comment: 3.3 - 4.4 LOW RISK 4.4 - 7.1 AVERAGE RISK 7.1 - 11.0 MODERATE RISK >11.0 HIGH RISK Performed By: #### L IPID, CMP, TSH #### [facility] [address] [address] [address] Glenny Sneed Cholesterol [Mass/Vol] 185 mg/dL Normal <=200 [facility] Comment on above: Performed By: #### L IPID, CMP, TSH #### [facility] [address] [address] [address] Glenny Sneed Cholesterol in HDL [Mass/Vol] 63 mg/dL Critically high 40-60 [facility] Comment on above: Performed By: #### L IPID, CMP, TSH #### [facility] [address] [address] [address] Glenny Sneed Cholesterol in LDL [Mass/Vol] 87.6 mg/dL Normal [facility] Comment on above: Performed By: #### L IPID, CMP, TSH #### [facility] [address] [address] [address] Glenny Sneed Cholesterol.total/Ch olesterol in HDL [Mass ratio] 2.9 {ratio} Normal [facility] Comment on above: Performed By: #### L IPID, CMP, TSH #### [facility] [address] [place] [address] Dr. Glenny Sneed HDL NORMAL > or = 60 mg/dl - LO W CARDIOVASCULAR RISK <40 mg/dl - HIGH CARDIOVASCULAR RISK Normal [facility] Comment on above: Performed By: #### L IPID, CMP, TSH #### [facility] [address] [address] [address] Glenny Sneed LDL CALC NORMAL SEE BELOW Normal [facility] Comment on above: Result Comment: <100 mg/dl OPTIMAL 100 - 129 mg/dl NEAR OR ABOVE OPTIMAL 130 - 159 mg/dl BORDERLINE HIGH 160 - 189 mg/dl HIGH >190 mg/dl VERY HIGH Performed By: #### L IPID, CMP, TSH #### [facility] [address] [address] [address] Glenny Sneed Triglyceride [Mass/Vol] 172 mg/dL Critically high <=150 [facility] Comment on above: Performed By: #### L IPID, CMP, TSH #### [facility] [address] [place] [address] Dr. Glenny Sneed VLDL CALC 34.4 mg/dL Normal [facility] Comment on above: Performed By: #### L IPID, CMP, TSH #### [facility] [address] [place] [address] Dr. Glenny Sneed PROF 14(COMP METB)on 023 Albumin [Mass/Vol] 4.1 g/dL Normal 3.4-5.0 [facility] Comment on above: Performed By: #### L IPID, CMP, TSH #### [facility] [address] [place] [address] Dr. Glenny Sneed Albumin/Globulin [Mass ratio] 1.0 {ratio} Normal [facility] Comment on above: Performed By: #### L IPID, CMP, TSH #### [facility] [address] [place] [address] Dr. Glenny Sneed ALP [Catalytic activity/Vol] 77 U/L Normal 46-116 [facility] Comment on above: Performed By: #### L IPID, CMP, TSH #### [facility] [address] [place] [address] Dr. Glenny Sneed ALT [Catalytic activity/Vol] 33 U/L Normal 14-59 [facility] Comment on above: Performed By: #### L IPID, CMP, TSH #### [facility] [address] [place] [address] Dr. Glenny Sneed Anion gap [Moles/Vol] 13.1 mmol/L Normal [facility] Comment on above: Performed By: #### L IPID, CMP, TSH #### [facility] [address] [place] [address] Dr. Glenny Sneed AST [Catalytic activity/Vol] 22 U/L Normal 15-37 [facility] Comment on above: Performed By: #### L IPID, CMP, TSH #### [facility] [address] [place] [address] Dr. Glenny Sneed Bilirubin [Mass/Vol] 0.7 mg/dL Normal 0.2-1.0 [facility] Comment on above: Performed By: #### L IPID, CMP, TSH #### [facility] [address] [place] [address] Dr. Glenny Sneed Calcium [Mass/Vol] 10.0 mg/dL Normal 8.5-10.1 [facility] Comment on above: Performed By: #### L IPID, CMP, TSH #### [facility] [address] [place] [address] Dr. Glenny Sneed Chloride [Moles/Vol] 102 mmol/L Normal 98-107 [facility] Comment on above: Performed By: #### L IPID, CMP, TSH #### [facility] [address] [place] [address] Dr. Glenny Sneed CO2 [Moles/Vol] 29.9 mmol/L Normal 21.0-32.0 [facility] Comment on above: Performed By: #### L IPID, CMP, TSH #### [facility] [address] [place] [address] Dr. Glenny Sneed Creatinine [Mass/Vol] 0.66 mg/dL Normal 0.55-1.02 [facility] Comment on above: Performed By: #### L IPID, CMP, TSH #### [facility] [address] [place] [address] Dr. Glenny Sneed EGFR-AF CHILEAN >60 Normal >=60 [facility] Comment on above: Performed By: #### L IPID, CMP, TSH #### [facility] [address] [place] [address] Dr. Glenny Sneed EGFR-NON AF CHILEAN >60 Normal >=60 [facility] Comment on above: Performed By: #### L IPID, CMP, TSH #### [facility] [address] [place] [address] Dr. Glenny Sneed Globulin (S) [Mass/Vol] 4.0 g/dL Normal [facility] Comment on above: Performed By: #### L IPID, CMP, TSH #### [facility] [address] [address] [address] Glenny Sneed Glucose [Mass/Vol] 106 mg/dL Normal 74-106 [facility] Comment on above: Performed By: #### L IPID, CMP, TSH #### [facility] [address] [address] [address] Glenny Sneed Potassium [Moles/Vol] 4.0 mmol/L Normal 3.5-5.1 [facility] Comment on above: Performed By: #### L IPID, CMP, TSH #### [facility] [address] [address] [address] Glenny Sneed Protein [Mass/Vol] 8.1 g/dL Normal 6.4-8.2 [facility] Comment on above: Performed By: #### L IPID, CMP, TSH #### [facility] [address] [address] [address] Glenny Sneed Sodium [Moles/Vol] 141 mmol/L Normal 136-145 [facility] Comment on above: Performed By: #### L IPID, CMP, TSH #### [facility] [address] [address] [address] Glenny Sneed Urea nitrogen [Mass/Vol] 9.0 mg/dL Normal 7.0-18.0 [facility] Comment on above: Performed By: #### L IPID, CMP, TSH #### [facility] [address] [address] [address] Glenny Sneed Urea nitrogen/Creatinine [Mass ratio] 13.6 mg/mg Normal [facility] Comment on above: Performed By: #### L IPID, CMP, TSH #### [facility] [address] [address] [address] Glenny Sneed TSHon 11-07-2022 TSH 2.008 uIU/mL Normal 0.358-3.740 [facility] Comment on above: Performed By: #### L IPID, CMP, TSH #### [facility] [address] [address] [address] Glenny Sneed UA RANDOM W/MICROSCOPICon BACTERIA NONE SEEN Normal NONE SEEN [facility] Comment on above: Performed By: #### U AMIC #### [facility] [address] [address] [address] Glenny Sneed Bilirubin Ql (U) Negative Normal NEGATIVE [facility] Comment on above: Performed By: #### U AMIC #### [facility] [address] [address] [address] Glenny Sneed CAST NONE SEEN Normal NONE SEEN [facility] Comment on above: Performed By: #### U AMIC #### [facility] [address] [address] [address] Glenny Sneed Clarity (U) CLEAR Normal CLEAR [facility] Comment on above: Performed By: #### U AMIC #### [facility] [address] [place] [address] Dr. Glenny Sneed Color (U) LT. YELLOW Normal YELLOW [facility] Comment on above: Performed By: #### U AMIC #### [facility] [address] [place] [address] Dr. Glenny Sneed Crystals LM Nom (Urine sed) NONE SEEN Normal NONE SEEN [facility] Comment on above: Performed By: #### U AMIC #### [facility] [address] [place] [address] Dr. Glenny Sneed Epithelial cells LM Ql (Urine sed) NONE SEEN Normal NONE SEEN /RARE [facility] Comment on above: Performed By: #### U AMIC #### [facility] [address] [address] [address] Glenny Sneed Glucose Ql (U) Negative Normal NEGATIVE [facility] Comment on above: Performed By: #### U AMIC #### [facility] [address] [place] [address] Dr. Glenny Sneed Hemoglobin Ql (U) TRACE-INTACT Abnormal NEGATIVE [facility] Comment on above: Performed By: #### U AMIC #### [facility] [address] [place] [address] Dr. Glenny Sneed Ketones Ql (U) Negative Normal NEGATIVE [facility] Comment on above: Performed By: #### U AMIC #### [facility] [address] [address] [address] Glenny Sneed LEUKOCYTES Negative Normal NEGATIVE [facility] Comment on above: Performed By: #### U AMIC #### [facility] [address] [address] [address] Glenny nSeed MUCOUS NONE SEEN Normal NONE SEEN [facility] Comment on above: Performed By: #### U AMIC #### [facility] [address] [place] [address] Dr. Glenny Sneed Nitrite Ql (U) Negative Normal NEGATIVE [facility] Comment on above: Performed By: #### U AMIC #### [facility] [address] [place] [address] Dr. Glenny Sneed pH (U) 6.5 [pH] Normal 5-9 [facility] Comment on above: Performed By: #### U AMIC #### [facility] [address] [place] [address] Dr. Glenny Sneed RBC 0-2 Normal 0-2 [facility] Comment on above: Performed By: #### U AMIC #### [facility] [address] [place] [address] Dr. Glenny Sneed SPEC GRAVITY <=1.005 Abnormal 1.005-<=1.025 [facility] Comment on above: Performed By: #### U AMIC #### [facility] [address] [place] [address] Dr. Glenny Sneed UA PROTEIN Negative Normal NEGATIVE/ TRACE [facility] Comment on above: Performed By: #### U AMIC #### [facility] [address] [address] [address] Glenny Sneed Urobilinogen Qn (U) 0.2 {Justice'U}/dL Normal 0.2 - 1. 0 [facility] Comment on above: Performed By: #### U AMIC #### [facility] [address] [place] [address] Dr. Glenny Sneed WBC NONE SEEN Normal NONE SEEN [facility] Comment on above: Performed By: #### U AMIC #### [facility] [address] [place] [address] Dr. Glenny Sneed VITAMIN D 25 OHon 11-07-2022 VIT D 25-OH 35.2 ng/mL Normal [facility] Comment on above: Performed By: #### F T4, VITAD #### [facility] [address] [place] [address] Dr. Glenny Sneed VIT D RANGES SEE BELOW Normal [facility] Comment on above: Result Comment: <20 ng/mL Vit D deficient 20 - <30 ng/mL Vit D insufficient 30 - 100 ng/mL Vit D sufficient >100 ng/mL Potential Toxicity Performed By: #### F T4, VITAD #### [facility] [address] [place] [address] Dr. Glenny Sneed HEPATITIS C ANTIBODYon 05-10 Hep C Virus Ab <0.1 Normal 0.0-0.9 [facility] Comment on above: Result Comment: [...] Hepatitis C Virus (HCV) RNA, Diagnosis, CORTES (075424) and Hepatitis C Virus (HCV) Antibody with reflex to Quantitative Real-time PCR ([id number]). Performed By: #### T SH, FT3 #### [facility] [address] [place] [address] Dr. Glenny Sneed LIPID PROFILEon 05-08-2022 CHOL-HDL RATIO NORM SEE BELOW Normal [facility] Comment on above: Result Comment: 3.3 - 4.4 LOW RISK 4.4 - 7.1 AVERAGE RISK 7.1 - 11.0 MODERATE RISK >11.0 HIGH RISK Performed By: #### T SH, FT3 #### [facility] [address] [place] [address] Dr. Glenny Sneed Cholesterol [Mass/Vol] 173 mg/dL Normal <=200 [facility] Comment on above: Performed By: #### T SH, FT3 #### [facility] [address] [address] [address] Glenny Sneed Cholesterol in HDL [Mass/Vol] 67 mg/dL Critically high 40-60 [facility] Comment on above: Performed By: #### T SH, FT3 #### [facility] [address] [address] [address] Glenny Sneed Cholesterol in LDL [Mass/Vol] 77.8 mg/dL Normal [facility] Comment on above: Performed By: #### T SH, FT3 #### [facility] [address] [address] [address] Glenny Sneed Cholesterol.total/Ch olesterol in HDL [Mass ratio] 2.6 {ratio} Normal [facility] Comment on above: Performed By: #### T SH, FT3 #### [facility] [address] [place] [address] Dr. Glenny Sneed HDL NORMAL > or = 60 mg/dl - LO W CARDIOVASCULAR RISK <40 mg/dl - HIGH CARDIOVASCULAR RISK Normal [facility] Comment on above: Performed By: #### T SH, FT3 #### [facility] [address] [place] [address] Dr. Glenny Sneed LDL CALC NORMAL SEE BELOW Normal [facility] Comment on above: Result Comment: <100 mg/dl OPTIMAL 100 - 129 mg/dl NEAR OR ABOVE OPTIMAL 130 - 159 mg/dl BORDERLINE HIGH 160 - 189 mg/dl HIGH >190 mg/dl VERY HIGH Performed By: #### T SH, FT3 #### [facility] [address] [address] [address] Glenny Sneed Triglyceride [Mass/Vol] 141 mg/dL Normal <=150 [facility] Comment on above: Performed By: #### T SH, FT3 #### [facility] [address] [place] [address] Dr. Glenny Sneed VLDL CALC 28.2 mg/dL Normal [facility] Comment on above: Performed By: #### T SH, FT3 #### [facility] [address] [place] [address] Dr. Glenny Sneed LIVER PROFILEon 05-08-2022 Albumin [Mass/Vol] 4.0 g/dL Normal 3.4-5.0 [facility] Comment on above: Performed By: #### T SH, FT3 #### [facility] [address] [place] [address] Dr. Glenny Sneed Albumin/Globulin [Mass ratio] 1.0 {ratio} Normal [facility] Comment on above: Performed By: #### T SH, FT3 #### [facility] [address] [place] [address] Dr. Glenny Sneed ALP [Catalytic activity/Vol] 77 U/L Normal 46-116 [facility] Comment on above: Performed By: #### T SH, FT3 #### [facility] [address] [place] [address] Dr. Glenny Sneed ALT [Catalytic activity/Vol] 39 U/L Normal 14-59 [facility] Comment on above: Performed By: #### T SH, FT3 #### [facility] [address] [place] [address] Dr. Glenny Sneed AST [Catalytic activity/Vol] 20 U/L Normal 15-37 [facility] Comment on above: Performed By: #### T SH, FT3 #### [facility] [address] [place] [address] Dr. Glenny Sneed BILI, CONJUGATED 0.1 mg/dL Normal 0.0-0.2 [facility] Comment on above: Performed By: #### T SH, FT3 #### [facility] [address] [place] [address] Dr. Glenny Sneed Bilirubin [Mass/Vol] 0.7 mg/dL Normal 0.2-1.0 [facility] Comment on above: Performed By: #### T SH, FT3 #### [facility] [address] [place] [address] Dr. Glenny Sneed Globulin (S) [Mass/Vol] 4.0 g/dL Normal [facility] Comment on above: Performed By: #### T SH, FT3 #### [facility] [address] [address] [address] Glenny Sneed Protein [Mass/Vol] 8.0 g/dL Normal 6.4-8.2 [facility] Comment on above: Performed By: #### T SH, FT3 #### [facility] [address] [place] [address] Dr. Glenny Sneed LIVER PROFILEon 02-13-2022 Albumin [Mass/Vol] 3.9 g/dL Normal 3.4-5.0 [facility] Comment on above: Performed By: #### T SH, FT3 #### [facility] [address] [place] [address] Dr. Glenny Sneed Albumin/Globulin [Mass ratio] 1.0 {ratio} Normal [facility] Comment on above: Performed By: #### T SH, FT3 #### [facility] [address] [place] [address] Dr. Glenny Sneed ALP [Catalytic activity/Vol] 112 U/L Normal 46-116 [facility] Comment on above: Performed By: #### T SH, FT3 #### [facility] [address] [place] [address] Dr. Glenny Sneed ALT [Catalytic activity/Vol] 50 U/L Normal 14-59 [facility] Comment on above: Performed By: #### T SH, FT3 #### [facility] [address] [place] [address] Dr. Glenny Sneed AST [Catalytic activity/Vol] 25 U/L Normal 15-37 [facility] Comment on above: Performed By: #### T SH, FT3 #### [facility] [address] [place] [address] Dr. Glenny Sneed BILI, CONJUGATED 0.2 mg/dL Normal 0.0-0.2 [facility] Comment on above: Performed By: #### T SH, FT3 #### [facility] [address] [place] [address] Dr. Glenny Sneed Bilirubin [Mass/Vol] 0.7 mg/dL Normal 0.2-1.0 [facility] Comment on above: Performed By: #### T SH, FT3 #### [facility] [address] [place] [address] Dr. Glenny Sneed Globulin (S) [Mass/Vol] 4.0 g/dL Normal [facility] Comment on above: Performed By: #### T SH, FT3 #### [facility] [address] [place] [address] Dr. Glenny Sneed Protein [Mass/Vol] 7.9 g/dL Normal 6.4-8.2 [facility] Comment on above: Performed By: #### T SH, FT3 #### [facility] [address] [place] [address] Dr. Glenny Sneed SGOTon 01-23-2022 AST [Catalytic activity/Vol] 41 U/L Critically high 15-37 [facility] Comment on above: Performed By: #### T SH, FT3 #### [facility] [address] [place] [address] Dr. Glenny Sneed SGPTon 01-23-2022 ALT [Catalytic activity/Vol] 85 U/L Critically high 14-59 [facility] Comment on above: Performed By: #### T SH, FT3 #### [facility] [address] [place] [address] Dr. Glenny Sneed LIPID PROFILEon 01-07-2022 CHOL-HDL RATIO NORM SEE BELOW Normal [facility] Comment on above: Result Comment: 3.3 - 4.4 LOW RISK 4.4 - 7.1 AVERAGE RISK 7.1 - 11.0 MODERATE RISK >11.0 HIGH RISK Performed By: #### T SH, FT3 #### [facility] [address] [place] [address] Dr. Glenny Sneed Cholesterol [Mass/Vol] 144 mg/dL Normal <=200 [facility] Comment on above: Performed By: #### T SH, FT3 #### [facility] [address] [place] [address] Dr. Glenny Sneed Cholesterol in HDL [Mass/Vol] 63 mg/dL Critically high 40-60 [facility] Comment on above: Performed By: #### T SH, FT3 #### [facility] [address] [place] [address] Dr. Glenny Sneed Cholesterol in LDL [Mass/Vol] 56.2 mg/dL Normal [facility] Comment on above: Performed By: #### T SH, FT3 #### [facility] [address] [place] [address] Dr. Glenny Sneed Cholesterol.total/Ch olesterol in HDL [Mass ratio] 2.3 {ratio} Normal [facility] Comment on above: Performed By: #### T SH, FT3 #### [facility] [address] [place] [address] Dr. Glenny Sneed HDL NORMAL > or = 60 mg/dl - LO W CARDIOVASCULAR RISK <40 mg/dl - HIGH CARDIOVASCULAR RISK Normal [facility] Comment on above: Performed By: #### T SH, FT3 #### [facility] [address] [place] [address] Dr. Glenny Sneed LDL CALC NORMAL SEE BELOW Normal [facility] Comment on above: Result Comment: <100 mg/dl OPTIMAL 100 - 129 mg/dl NEAR OR ABOVE OPTIMAL 130 - 159 mg/dl BORDERLINE HIGH 160 - 189 mg/dl HIGH >190 mg/dl VERY HIGH Performed By: #### T SH, FT3 #### [facility] [address] [place] [address] Dr. Glenny Sneed Triglyceride [Mass/Vol] 124 mg/dL Normal <=150 [facility] Comment on above: Performed By: #### T SH, FT3 #### [facility] [address] [place] [address] Dr. Glenny Sneed VLDL CALC 24.8 mg/dL Normal [facility] Comment on above: Performed By: #### T ZENAIDA, FT3 #### [facility] [address] [place] [address] Dr. Glenny Holden 01-07-2022 AST [Catalytic activity/Vol] 53 U/L Critically high 15-37 [facility] Comment on above: Performed By: #### T SH, FT3 #### [facility] [address] [address] [address] Glenny Sneed [facility] 01-07-2022 ALT [Catalytic activity/Vol] 108 U/L Critically high 14- [facility] Comment on above: Performed By: #### T , FT3 #### [facility] [address] [place] [address] Dr. Glenny Sneed Vital Signs Date Time Vital Sign Value Performing Clinician Faci lity 07-07-2024 10:27-0400 Body height 154.9 cm Pamelamaria elena Moore MANAGER [employer] Work Phone: [facility] 07-07-2024 10:27-0400 Body mass index (BMI) [Ratio] 29.97 kg/m2 Pamela Aichsarahz MANAGER [employer] Work Phone: [facility] 07-07-2024 10:27-0400 Body temperature 98.49 [degF] Pamela Aichsarahz MANAGER [employer] Work Phone: [facility] 07-07-2024 10:27-0400 Body weight 71.94 kg Pamela Aichholz MANAGER [employer] Work Phone: [facility] 07-07-2024 10:27-0400 Diastolic blood pressure 62 mm[Hg] Pamela Aichholz MANAGER [employer] Work Phone: [facility] 07-07-2024 10:27-0400 Heart rate 64 /min Pamela Aichholz MANAGER [employer] Work Phone: [facility] 07-07-2024 10:27-0400 Respiratory rate 20 /min Pamela Aichholz MANAGER [employer] Work Phone: [facility] 07-07-2024 10:27-0400 SaO2% (BldA) [Mass fraction] 98 % Pamela Aichholz MANAGER [employer] Work Phone: [facility] 07-07-2024 10:27-0400 Systolic blood pressure 142 mm[Hg] Pamela Aichholz MANAGER [employer] Work Phone: [facility] 11-05-2023 09:44-0500 Body height 154.9 cm Pamela Aichholz MANAGER [employer] Work Phone: [facility] 11-05-2023 09:44-0500 Body mass index (BMI) [Ratio] 30 kg/m2 Pamelamaria elena Camachosarahz MANAGER [employer] Work Phone: [facility] 11-05-2023 09:44-0500 Body temperature 97.5 [degF] Pamela Camachosarahz MANAGER [employer] Work Phone: [facility] 11-05-2023 09:44-0500 Body weight 72.03 kg Pamela Langleyz MANAGER [employer] Work Phone: [facility] 11-05-2023 09:44-0500 Diastolic blood pressure 68 mm[Hg] Pamela Dougsarahz MANAGER [employer] Work Phone: [facility] 11-05-2023 09:44-0500 Heart rate 61 /min Pamela Tavoquentinz MANAGER [employer] Work Phone: [facility] 11-05-2023 09:44-0500 Respiratory rate 18 /min Pamela Camachosarahz MANAGER [employer] Work Phone: [facility] 11-05-2023 09:44-0500 SaO2% (BldA) [Mass fraction] 98 % Pamela Camachosarahz MANAGER [employer] Work Phone: [facility] 11-05-2023 09:44-0500 Systolic blood pressure 138 mm[Hg] Pamela Dougsarahz MANAGER [employer] Work Phone: [facility] Healthcare Encounters Encounter Date Encounter Type Care Provider Facility Start: 07-13-2024 End: 07-13-2024 Refill Pamela Camachosharda MANAGER [employer] Work Phone: [facility] Comment on above: Hypothyroidism (acqu ired) (CMS/HCC) (Primary Dx) Start: 07-07-2024 End: 07-07-2024 Bamboo flowsheet Pamela Oscar MANAGER [employer] Work Phone: [facility] Start: 07-07-2024 End: 07-13-2024 Bamboo flowsheet Pamela Oscar MANAGER [employer] Work Phone: [facility] Start: 07-07-2024 End: 07-13-2024 Clinisync Result Encounter Pamela Moore MANAGER [employer] Work Phone: [facility] External Department Unsolicited Start: 07-07-2024 End: 07-09-2024 External Result Encounter Pamela Moore MANAGER [employer] Work Phone: [facility] External Department Unsolicited Start: 07-07-2024 End: 07-07-2024 Office outpatient visit 25 minutes Pamela Langleyjulisa MANAGER [employer] Work Phone: [facility] Comment on above: Encounter for well w kathy exam with routine gynecological exam (Primary Dx); Hypothyroidism (acquired) (CMS/[facility]); Vaginal discharge; Pelvic pain Start: 07-07-2024 End: 07-07-2024 Patient encounter procedure Pamela Camachosharda MANAGER [employer] Work Phone: [facility] Healthcare Start: 07-07-2024 End: 07-07-2024 ambulatory PAMELA AICHHOLZ Not Available Start: 06-24-2024 End: 06-25-2024 Refill Pamela Tavoevertonsarahz MANAGER [employer] Work Phone: [facility] Comment on above: Hyperlipidemia, unsp ecified (CMS/HCC) Start: 06-10-2024 End: 06-10-2024 ambulatory PAMELA AICHHOLZ Not Available Start: 05-10-2024 End: 05-10-2024 ambulatory PAMELA AICHHOLZ Not Available Start: 04-29-2024 End: 04-29-2024 ambulatory MD Jorge Goncalves Work Phone: [facility] Work Phone: Start: 04-29-2024 End: 04-29-2024 Patient encounter procedure MD Jorge Goncalves Work Phone: [facility] Work Phone: Start: 04-29-2024 End: 04-29-2024 Patient encounter procedure MD Jorge Goncalves Work Phone: [facility] Start: 04-29-2024 End: 04-29-2024 ambulatory MD Jorge Goncalves Work Phone: [facility] Work Phone: Start: 04-14-2024 Patient encounter procedure Pamela Moore MANAGER [employer] Work Phone: [facility] Start: 04-14-2024 End: 04-14-2024 ambulatory PAMELA TAVOHHOLZ Not Available Start: 04-01-2024 End: 04-01-2024 ambulatory [facility] Start: 03-08-2024 End: 03-08-2024 ambulatory PAMELA AICHHOLZ Not Available Start: 12-22-2023 End: 01-21-2024 ambulatory [facility] Start: 12-15-2023 End: 12-22-2023 [facility] Start: 12-11-2023 End: 12-11-2023 ambulatory MD Jorge Goncalves Work Phone: [facility] Work Phone: Start: 12-11-2023 End: 12-11-2023 Patient encounter procedure MD Jorge Goncalves Work Phone: [facility] Work Phone: Start: 11-05-2023 Bamboo flowsheet Pamela Oscar MANAGER [employer] Work Phone: [facility] Start: 11-05-2023 Bamboo flowsheet Pamela Oscar MANAGER [employer] Work Phone: [facility] Start: 11-05-2023 End: 11-05-2023 Office outpatient visit 25 minutes Pamela Moore MANAGER [employer] Work Phone: [facility] Comment on above: Gastroesophageal ref lux disease, unspecified whether esophagitis present (Primary Dx); Age related osteoporosis, unspecified pathological fracture presence (CMS/HCC); Vitamin D deficiency; Pre-diabetes; Hypothyroidism (acquired) (CMS/HCC); Mixed hyperlipidemia (CMS/HCC); Encounter for screening mammogram for malignant neoplasm of breast; BMI 30.0-30.9,adult; Chronic left shoulder pain Start: 11-05-2023 End: 11-05-2023 ambulatory PAMELA OSCAR Not Available Start: 09-17-2023 End: 09-17-2023 ambulatory PAMELA RAMANAZ Not Available Start: 02-20-2023 ambulatory JORGE GONCALVES Facility :[facility] Start: 01-03-2023 End: 01-04-2023 ambulatory COCO RODRIGUEZA OSCAR Facility:[facility] Start: 12-16-2022 End: 12-17-2022 ambulatory [facility] PAMELA OSCAR Facility:[facility] Start: 11-07-2022 End: 11-08-2022 ambulatory [facility] [employer] PAMELA OSCAR Facility:[facility] Start: 05-08-2022 End: 05-09-2022 ambulatory [employer] PAMELA OSCAR Facility:[facility] Start: 02-13-2022 End: 02-14-2022 ambulatory [employer] PAMELA RAMANAZ Facility:[facility] Start: 01-23-2022 End: 01-24-2022 ambulatory [employer] PAMELA RAMANAZ Facility:[facility] Start: 01-07-2022 End: 01-08-2022 ambulatory [employer] PAMELA AICHHOLZ Facility:[facility] Procedures Date Procedure Procedure Detail Performing Clinician Start: 07-07-2024 IGP,APTIMA HPV,AGE GDLN Pamela Moore MANAGER [employer] Work Phone: Start: 07-07-2024 VAGINITIS (HTRX) Pamela munoz MANAGER [employer] Work Phone: Start: 04-29-2024 Plain X-ray of right shoulder MD Jorge Goncalves Work Phone: Start: 12-11-2023 Plain X-ray of left shoulder MD Jorge Goncalves Work Phone: Start: 05-23-2021 Colonoscopy Pamela john MANAGER [employer] Work Phone: Plan of Treatment Date Care Activity Detail Author Start: 05-23-2031 Screening for malignant neoplasm of colon [facility] Start: 04-14-2025 Medicare Annual Wellness (AWV) Medicare Annual Wellness (AWV) [facility] Start: 09-09-2024 End: 09-09-2024 Patient encounter procedure 09/09/2024 9:00 AM EST Office Visit [facility] [address] [place] [address] Pamela Moore NP [address] [place] [address] [facility] Start: 08-18-2024 End: 08-18-2024 Patient encounter procedure 08/18/2024 9:40 AM EST Office Visit [facility] [address] [place] [address] Pamela Moore, MARIKA [address] [place] [id number] [facility] Start: 07-07-2024 End: 07-07-2025 THIN PREP TIS PAP AND HR HPV DNA THIN PREP TIS PAP AND HR HPV DNA Pathology and Cytology Routine Encounter for well woman exam with routine gynecological exam Expected: 07/07/2024 (Approximate), Expires: 07/07/2025 [facility] Work Phone: Comment on above: Expected: 07/07/2024 (Approximate), Expi res: 07/07/2025 Start: 07-07-2024 End: 07-07-2025 US Pelvis transvaginal US pelvis transvaginal Imaging Routine Pelvic pain Expected: 07/07/2024 (Approximate), Expires: 07/07/2025 [facility] Comment on above: Expected: 07/07/2024 (Approximate), Expi res: 07/07/2025 Start: 07-07-2024 End: 07-07-2025 VAGINITIS (HTRX) VAGINITIS (HTRX) Lab Routine Vaginal discharge Expected: 07/07/2024 (Approximate), Expires: 07/07/2025 [facility] Comment on above: Expected: 07/07/2024 (Approximate), Expi res: 07/07/2025 Start: 07-07-2024 End: 07-07-2024 Patient encounter procedure [facility] Comment on above: Hypothyroidism (acquired) (CMS/HCC) Start: 05-08-2024 Medicare Annual Wellness (AWV) Medicare Annual Wellness (AWV) [facility] Start: 04-29-2024 Plain X-ray of right shoulder XR shoulder RT min 2V* [facility] Start: 04-29-2024 XR Shoulder - right Views [facility] Start: 03-08-2024 End: 03-08-2024 Patient encounter procedure 03/08/2024 9:40 AM EDT Office Visit [facility] [address] [place] [address] Pamela Moore, MARIKA [address] [place] [address] [facility] Start: 01-05-2024 End: 01-03-2025 MG Breast - bilateral Screening Bilateral screening mammogram Imaging Routine Encounter for screening mammogram for malignant neoplasm of breast Expected: 01/05/2024 (Approximate), Expires: 01/03/2025 [facility] Comment on above: Expected: 01/05/2024 (Approximate), Expi res: 01/03/2025 Start: 12-11-2023 Plain X-ray of left shoulder XR shoulder LT min 2V* [facility] Start: 12-11-2023 XR Shoulder - left Views [facility] Start: 11-05-2023 End: 11-05-2024 25-hydroxyvitamin D3 [Mass/volume] in Serum or Plasma Vitamin D 25 hydroxy Lab Routine Vitamin D deficiency Expected: 11/05/2023 (Approximate), Expires: 11/05/2024 [facility] Healthcare Comment on above: Expected: 11/05/2023 (Approximate), Expi res: 11/05/2024 Start: 11-05-2023 End: 11-05-2024 CBC W Auto Differential panel - Blood CBC and differential Lab Routine Gastroesophageal reflux disease, unspecified whether esophagitis present Expected: 11/05/2023 (Approximate), Expires: 11/05/2024 [facility] Work Phone: Comment on above: Expected: 11/05/2023 (Approximate), Expi res: 11/05/2024 Start: 11-05-2023 End: 11-05-2024 Comprehensive metabolic 2000 panel - Serum or Plasma Comprehensive metabolic panel Lab Routine Gastroesophageal reflux disease, unspecified whether esophagitis present Age related osteoporosis, unspecified pathological fracture presence (CMS/HCC) Vitamin D deficiency Pre-diabetes Mixed hyperlipidemia (CMS/HCC) Expected: 11/05/2023 (Approximate), Expires: 11/05/2024 [facility] Comment on above: Expected: 11/05/2023 (Approximate), Expi res: 11/05/2024 Start: 11-05-2023 End: 11-05-2024 DXA Skeletal system Views for bone density DEXA bone density Imaging Routine Age related osteoporosis, unspecified pathological fracture presence (CMS/HCC) Expected: 11/05/2023 (Approximate), Expires: 11/05/2024 [facility] Comment on above: Expected: 11/05/2023 (Approximate), Expi res: 11/05/2024 Start: 11-05-2023 End: 11-05-2024 Hemoglobin A1c measurement Hemoglobin A1c Lab Routine Pre-diabetes Expected: 11/05/2023 (Approximate), Expires: 11/05/2024 [facility] Comment on above: Expected: 11/05/2023 (Approximate), Expi res: 11/05/2024 Start: 11-05-2023 End: 11-05-2024 Lipid 1996 panel - Serum or Plasma Lipid panel Lab Routine Pre-diabetes Hypothyroidism (acquired) (CMS/HCC) Mixed hyperlipidemia (CMS/HCC) Expected: 11/05/2023 (Approximate), Expires: 11/05/2024 [facility] Comment on above: Expected: 11/05/2023 (Approximate), Expi res: 11/05/2024 Start: 11-05-2023 End: 11-05-2024 Microalbumin/Creatinine panel in random Urine Microalbumin / creatinine, urine ratio Lab Routine Pre-diabetes Expected: 11/05/2023 (Approximate), Expires: 11/05/2024 [facility] Comment on above: Expected: 11/05/2023 (Approximate), Expi res: 11/05/2024 Start: 11-05-2023 End: 11-05-2024 Urinalysis complete panel - Urine Urinalysis with reflex microscopic (clean catch) Lab Routine Pre-diabetes Expected: 11/05/2023 (Approximate), Expires: 11/05/2024 [facility] Comment on above: Expected: 11/05/2023 (Approximate), Expi res: 11/05/2024 Start: 11-05-2023 End: 11-05-2023 Patient encounter procedure 11/05/2023 9:40 AM EST Office Visit [facility] [address] [place] [address] Pamela Moore, MARIKA [address] [place] [address] Gastroesophageal reflux disease, unspecified whether esophagitis present (Primary Dx); Age related osteoporosis, unspecified pathological fracture presence (CMS/HCC); Vitamin D deficiency; Pre-diabetes; Hypothyroidism (acquired) (CMS/HCC); Mixed hyperlipidemia (CMS/HCC); Encounter for screening mammogram for malignant neoplasm of breast [facility] Comment on above: Gastroesophageal reflux disease, unspeci fied whether esophagitis present (Primary Dx); Age related osteoporosis, unspecified pathological fracture presence (CMS/HCC); Vitamin D deficiency; Pre-diabetes; Hypothyroidism (acquired) (CMS/HCC); Mixed hyperlipidemia (CMS/HCC); Encounter for screening mammogram for malignant neoplasm of breast Start: 05-23-2023 Influenza vaccination Influenza Vaccine (#1) [facility] Start: 2012 Pneumococcal Vaccine: 65+ Years (1 - PCV) Pneumococcal Vaccine: 65+ Years (1 - PCV) [facility] Start: 1945 Screening for malignant neoplasm of colon [facility] Payers Date Payer Category Payer Self-pay [id number] 2021 Medicare [employer] MEDICARE ADVANTAGE [facility] MEDICARE ADVANTAGE [id number] 2021-Present [address] [place] [address] [id number] 2021 Medicare (Managed Care) [employer] Member Subscriber Plan / Payer (Effective 2021-Present) Name: Bernard Ponce Relation to Subscriber: Self Name: Bernard Ponce Payer ID: Not on file Group ID: [id number] Type: Not on file Address: [address] [place] [id number] 1959 Unknown [id number] 1947 Unknown [id number] 2.16.840.1.593406.3.579.2. 593 1947 Unknown [id number] 2.16.840.1.861266.3.579.2. 593 1947 Unknown [id number] 2.16.840.1.681457.3.579.2. 593 1947 Unknown [id number] 2.16.840.1.513238.3.579.2. 593 1947 Unknown [id number] 2.16.840.1.258781.3.579.2. 593 1947 Unknown [id number] 2.16.840.1.254719.3.579.2. 593 1947 Unknown [id number] 2.16.840.1.157301.3.579.2. 593 1947 Unknown [id number] 2.16.840.1.403725.3.579.2. 718 1947 Unknown [id number] 2.16.840.1.942743.3.579.2. 1286 8 Unknown [id number] 2.16.840.1.980864.3.579.2. 1286 1947 Unknown [id number] 2.16.840.1.867322.3.579.2. 1286 1947 Unknown [id number] 2.16.840.1.094917.3.579.2. 1259 1947 Unknown [id number] 2.16.840.1.315264.3.579.2. 1259 1947 Unknown [id number] 2.16.840.1.972788.3.579.2. 1259 1947 Unknown [id number] 2.16.840.1.407086.3.579.2. 1259 1947 Unknown [id number] 2.16.840.1.775736.3.579.2. 1259 1947 Unknown [id number] 2.16.840.1.250576.3.579.2. 1259 1947 Unknown [id number] 2.16.840.1.102021.3.579.2. 1259 Medicaid Medicaid [id number] Medicare Medicare [id number] Unknown [id number] 2.16.840.1.996777.3.579.2. 531 Unknown [id number] 2.16840.1.825180.3.579.2. 531 Worker's Compensation [id number] Social History Date Type Detail Facility Start: 10-04-2021 End: 01-31-2023 Tobacco smoking status NHIS Never smoked tobacco [facility] Start: 01-31-2023 Tobacco use and exposure Smokeless tobacco non-user [facility] Start: 11-05-2023 End: 07-07-2024 Alcohol intake Ex-drinker (finding) [facility] Start: 09-17-2023 End: 04-14-2024 History of Social function [facility] Start: 09-17-2023 End: 04-14-2024 Tobacco use panel [facility] Start: 03-15-2023 Alcohol Comment Caffeine Intak e: more then 4 cups/day [facility] Start: 1945 Sex Assigned At Not on file [facility] Start: 1945 Sex Assigned At Female F [facility] History of Present illness Narrative 07-07-2024 Pamela Moore NP - 07/07/2024 11:10 AM Zhane Moore NP - 07/07/2024 11:02 AM Zhane Moore NP - 07/07/2024 11:01 AM Zhane Moore NP - 07/07/2024 10:30 AM EDT Note Date & Type Note Facility 07-07-2024 History of Presen t illness Narrative Associated Problem(s): Pelvic pain D/t limitation of bimanual exam and pt pain bilat adenexal region Will order pelvic US No family hx of cervical/ovarian/uterine cancer Fu in 6 weeks for results of testing Associated Problem(s): Encounter for well woman exam with routine gynecological exam BSE info Diet, exercise Fu as per PAP indication Associated Problem(s): Vaginal discharge Health trax vaginitis, suspect BV,will await culture [facility] [id number] Exp: 09/21/24 [id number] Images from the original note were not included. Bernard Ponce is a 78 y.o. female presents with chief complaint of No chief complaint on file. HPI: Gynecologic Exam The patient's primary symptoms include a genital odor, pelvic pain and vaginal discharge. The patient's pertinent negatives include no genital itching, genital lesions, genital rash, missed menses or vaginal bleeding. The current episode started more than 1 month ago. The problem occurs intermittently. The problem affects both sides. She is not . Associated symptoms include dysuria. Pertinent negatives include no abdominal pain, back pain, constipation, diarrhea, discolored urine, fever, headaches, hematuria, nausea, rash, sore throat or vomiting. The vaginal discharge was white and malodorous. There has been no bleeding. She has not been passing clots. She has not been passing tissue. Nothing aggravates the symptoms. Treatments tried: OTC wipes. She is not sexually active. No, her partner does not have an STD. She uses nothing for contraception. She is postmenopausal. Her past medical history is significant for a section. There is no history of a gynecological surgery, menorrhagia, metrorrhagia or an STD. SUBJECTIVE: MEDICATIONS: Current Outpatient Medications Medication Instructions albuterol HFA 90 mcg/act inhaler 2 puffs, Inhalation, Every 6 hours PRN alendronate (FOSAMAX) 70 mg, Oral, Every 7 days atorvastatin (LIPITOR) 20 mg, Oral, Nightly benzonatate (TESSALON) 100 mg, 3 times daily PRN cholecalciferol 50 MCG (2000 UT) tablet 2,000 international units once a day fluticasone (Flonase) 50 MCG/ACT nasal spray 1 spray, Daily furosemide (LASIX) 20 mg, As needed levothyroxine (SYNTHROID, LEVOXYL) 50 mcg, Oral, Daily before breakfast loratadine (CLARITIN REDITABS) 10 mg, Daily Multiple Vitamin (MULTIVITAMIN ADULT PO) Multivitamin omega-3 (fish oil) 1000 MG capsule 1 capsule, Every 24 hours Papaya 100 MG tablet Papaya Vitamin D3 50 mcg, Daily ALLERGIES: Allergies Allergen Reactions Ampicillin Hives REVIEW OF SYMPTOMS: Review of Systems Constitutional: Negative for appetite change, fatigue, fever and unexpected weight change. HENT: Negative for congestion, ear pain, sinus pressure, sinus pain and sore throat. Eyes: Negative for pain, discharge and visual disturbance. Breasts: Negative for breast mass and breast discharge. Respiratory: Negative for apnea, cough, chest tightness, shortness of breath and wheezing. Cardiovascular: Negative for chest pain, palpitations and leg swelling. Gastrointestinal: Negative for abdominal pain, constipation, diarrhea, nausea and vomiting. Genitourinary: Positive for dysuria, pelvic pain and vaginal discharge. Negative for decreased urine volume, difficulty urinating, hematuria, menorrhagia and missed menses. Musculoskeletal: Negative for arthralgias, back pain, gait problem and joint swelling. Skin: Negative for color change and rash. Neurological: Negative for dizziness, tremors, weakness and headaches. Psychiatric/Behavioral: Negative for agitation, hallucinations and suicidal ideas. The patient is not nervous/anxious. Hematological: Negative for adenopathy. Does not bruise/bleed easily. Endocrine: Negative for cold intolerance, heat intolerance, polydipsia and polyuria. Allergic/Immunologic: Negative for environmental allergies [...] father and mother. OBJECTIVE: Visit Vitals BP 142/62 (BP Location: Left arm, Patient Position: Sitting, BP Cuff Size: Adult long) Pulse 64 Temp 98.5 F (Temporal) Resp 20 Ht 5' 1 Wt 158 lb 9.6 oz SpO2 98% BMI 29.97 kg/m Smoking Status Never BSA 1.76 m Physical Exam Vitals and nursing note reviewed. 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 Constitutional: General: She is not in acute distress. Appearance: Normal appearance. HENT: Head: Normocephalic and atraumatic. Right Ear: External ear normal. Left Ear: External ear normal. Nose: Nose normal. Mouth/Throat: Mouth: Mucous membranes are moist. Eyes: Extraocular Movements: Extraocular movements intact. Conjunctiva/sclera: Conjunctivae normal. Cardiovascular: Rate and Rhythm: Normal rate and regular rhythm. Pulses: Normal pulses. Heart sounds: Normal heart sounds. Pulmonary: Effort: Pulmonary effort is normal. Breath sounds: Normal breath sounds. Chest: Breasts: Elmer Score is 5. Breasts are symmetrical. Right: Normal. No swelling, inverted nipple, mass, nipple discharge or skin change. Left: Normal. No swelling, inverted nipple, mass, nipple discharge or skin change. Abdominal: General: Bowel sounds are normal. There is no distension. Palpations: Abdomen is soft. There is no mass. Tenderness: There is no abdominal tenderness. Hernia: There is no hernia in the left inguinal area or right inguinal area. Genitourinary: Exam position: Lithotomy position. Pubic Area: No rash or pubic lice. Elmer stage (genital): 5. Labia: Right: No rash, tenderness, lesion or injury. Left: No rash, tenderness, lesion or injury. Vagina: No foreign body. No vaginal discharge (white) or prolapsed vaginal dimas. Cervix: No cervical motion tenderness, friability, lesion, erythema, cervical bleeding or eversion. Uterus: Normal. Not enlarged, not fixed and not tender. Adnexa: Right: Tenderness present. No fullness. Left: Tenderness present. No fullness. Rectum: Normal. Comments: Atrophic changes Bimanual exam limited d/t discomfort by patient Musculoskeletal: General: Normal range of motion. Cervical back: Normal range of motion and neck supple. Lymphadenopathy: Cervical: No cervical adenopathy. Upper Body: Right upper body: No supraclavicular, axillary or pectoral adenopathy. Left upper body: No supraclavicular, axillary or pectoral adenopathy. Lower Body: No left inguinal adenopathy. Skin: General: Skin is warm and dry. [...] file. Problem List Items Addressed This Visit Hypothyroidism (acquired) (CMS/HCC) Relevant Medications levothyroxine (Synthroid, Levoxyl) 50 MCG tablet Encounter for well woman exam with routine gynecological exam - Primary BSE info Diet, exercise Fu as per PAP indication Relevant Orders THIN PREP TIS PAP AND HR HPV DNA Vaginal discharge Health trax vaginitis, suspect BV,will await culture [facility] [id number] Exp: 09/21/24 [id number] Relevant Orders VAGINITIS (HTRX) Pelvic pain D/t limitation of bimanual exam and pt pain bilat adenexal region Will order pelvic US No family hx of cervical/ovarian/uterine cancer Relevant Orders US pelvis transvaginal documented in this encounter [facility] History of Present illness Narrative 11-05-2023 Pamela Moore NP - 11/05/2023 10:46 AM Donell Moore NP - 11/05/2023 10:45 AM Donell Moore NP - 11/05/2023 10:45 AM Donell Moore NP - 11/05/2023 10:44 AM EST Note Date & Type Note Facility 11-05-2023 History of Presen t illness Narrative Associated Problem(s): Chronic left shoulder pain Will refer to Dr Sudhakar padron [place] per pt request Associated Problem(s): Encounter for [...] refer to Dr De La Fuente in [place] per pt request Relevant Orders Ambulatory referral to Orthopaedic Surgery documented in this encounter [facility] Healthcare Evaluation note Note Date [...] Date Primary osteoarthritis of left shoulder acute [facility] Work Phone: Evaluation note Note Date & Type Note Facility Evaluation note Diagnosis Onset Date Primary osteoarthritis of left shoulder acute Primary osteoarthritis, right shoulder acute Rotator cuff syndrome of right shoulder acute [facility] Work Phone: Evaluation note Note Date & Type Note Facility Evaluation note Diagnosis Hyperlipidemia, unspecified (CMS/HCC) documented in this encounter [facility] Evaluation note Note Date & Type Note Facility Evaluation note Diagnosis Gastroesophageal reflux disease, unspecified whether esophagitis present- Primary Age related osteoporosis, unspecified pathological fracture presence (CMS/HCC) Vitamin D deficiency Pre-diabetes Other abnormal glucose Hypothyroidism (acquired) (CMS/HCC) Unspecified hypothyroidism Mixed hyperlipidemia ([facility]) Mixed hyperlipidemia Encounter for screening mammogram for malignant neoplasm of breast BMI 30.0-30.9,adult Chronic left shoulder pain Pain in joint, shoulder region Other constipation- Primary Diverticulosis of large intestine without hemorrhage Gastroesophageal reflux disease, unspecified whether esophagitis present Obesity (BMI 30-39.9) Abdominal bloating Flatulence, eructation, and gas pain Encounter for subsequent annual wellness visit (AWV) in Medicare patient- Primary Age related osteoporosis, unspecified pathological fracture presence ([facility]) Hyperlipidemia, unspecified ([facility]) Pre-diabetes Other abnormal glucose Obesity (BMI 30-39.9) Hypothyroidism (acquired) ([facility]) Unspecified hypothyroidism Chronic osteoarthritis Osteoarthrosis, unspecified whether generalized or localized, unspecified site Elevated blood pressure reading Elevated blood pressure reading without diagnosis of hypertension Primary hypertension ([facility])- Primary Unspecified essential hypertension Obesity (BMI 30-39.9) LORI (generalized anxiety disorder) ([facility]) Generalized anxiety disorder Primary hypertension ([facility])- Primary Unspecified essential hypertension Gastroesophageal reflux disease, unspecified whether esophagitis present Vitamin D deficiency Pre-diabetes Other abnormal glucose Hypothyroidism (acquired) ([facility]) Unspecified hypothyroidism Mixed hyperlipidemia ([facility]) Mixed hyperlipidemia Encounter for well woman exam with routine gynecological exam- Primary Hypothyroidism (acquired) ([facility]) Unspecified hypothyroidism Vaginal discharge Leukorrhea, not specified as infective Pelvic pain documented in this encounter [facility] Evaluation note Note Date & Type Note Facility Evaluation note Diagnosis Gastroesophageal reflux disease, unspecified whether esophagitis present- Primary Age related osteoporosis, unspecified pathological fracture presence ([facility]) Vitamin D deficiency Pre-diabetes Other abnormal glucose Hypothyroidism (acquired) ([facility]) Unspecified hypothyroidism Mixed hyperlipidemia ([facility]) Mixed hyperlipidemia Encounter for screening mammogram for malignant neoplasm of breast BMI 30.0-30.9,adult Chronic left shoulder pain Pain in joint, shoulder region Other constipation- Primary Diverticulosis of large intestine without hemorrhage Gastroesophageal reflux disease, unspecified whether esophagitis present Obesity (BMI 30-39.9) Abdominal bloating Flatulence, eructation, and gas pain Encounter for subsequent annual wellness visit (AWV) in Medicare patient- Primary Age related osteoporosis, unspecified pathological fracture presence ([facility]) Hyperlipidemia, unspecified ([facility]) Pre-diabetes Other abnormal glucose Obesity (BMI 30-39.9) Hypothyroidism (acquired) ([facility]) Unspecified hypothyroidism Chronic osteoarthritis Osteoarthrosis, unspecified whether generalized or localized, unspecified site Elevated blood pressure reading Elevated blood pressure reading without diagnosis of hypertension Primary hypertension ([facility])- Primary Unspecified essential hypertension Obesity (BMI 30-39.9) LORI (generalized anxiety disorder) ([facility]) Generalized anxiety disorder Primary hypertension ([facility])- Primary Unspecified essential hypertension Gastroesophageal reflux disease, unspecified whether esophagitis present Vitamin D deficiency Pre-diabetes Other abnormal glucose Hypothyroidism (acquired) ([facility]) Unspecified hypothyroidism Mixed hyperlipidemia ([facility]) Mixed hyperlipidemia Encounter for well woman exam with routine gynecological exam- Primary Hypothyroidism (acquired) ([facility]) Unspecified hypothyroidism Vaginal discharge Leukorrhea, not specified as infective Pelvic pain Hypothyroidism (acquired) ([facility])- Primary Unspecified hypothyroidism documented in this encounter [facility] Reason for referral (narrative) Consultation (Routine) - Pending Review Note Date & Type Note Facility Reason for referral (narrati ve) Specialty Diagnoses / Procedures Referred By Lisa morgan Referred To Contact Orthopaedic Surgery Diagnoses Chronic left shoulder pain Pamela Moore, MARIKA [address] [place] [address] Ziggy De La Fuente MD [address] [place] [id number] Referral ID Status Reason Start Date Expiration Date Visits Requested Visits Authorized [id number] Pending Review Specialty Services Required 11/05/2023 05/03/2024 1 1 [facility] Healthcare Summary Purpose Family History Relationship Condition [...] - Pain in ri ght shoulder [employer] RT SHOULDER PAIN NX Reason for Visit Primary osteoarthrit is of left shoulder Primary osteoarthritis, right shoulder Rotator cuff syndrome of right shoulder Additional Source Comments INFORMATION SOURCE (unrecogn ized section and content) DATE CREATED AUTHOR 01/06/2023 [facility] DATE CREATED AUTHOR AUTHOR'S ORGANIZ ATION 02/28/2023 [facility] DATE CREATED AUTHOR AUTHOR'S ORGANIZ ATION 01/22/2024 [facility] DATE CREATED AUTHOR AUTHOR'S ORGANIZ ATION 04/07/2024 [facility] DATE CREATED AUTHOR AUTHOR'S ORGANIZ ATION 05/01/2024 [facility] DATE CREATED AUTHOR AUTHOR'S ORGANIZ ATION 07/09/2024 [facility] dicor Specialists EPIC Care Teams (unrecognized sec tion [...] Provider Active S tart: April 29, 2024 Braxton Escalante DO Attending Provider Active St art: April 29, 2024 [employer] Relationship Specialty Start Date End Date Jorge Goncalves MD [address] [place] [phone] PCP - General Family Medicine 11/05/23 [employer] Relationship Specialty Start Date End Date Jorge Goncalves MD [address] [place] [address] PCP - General Family Medicine [...] Provider Active St art: December 11, 2023 [employer] 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 Relationship Specialty Start Date End Date Jorge Goncalves MD [address] [place] [phone] PCP - General Family Medicine 11/05/23 Pamela Moore NP [address] [place] [phone] PCP - Ankit MURRY 04/22/24 [employer] Relationship Specialty Start Date End Date Jorge Goncalves MD [address] [place] [phone] PCP - General Family Medicine 11/05/23 Pamela Moore NP [address] [place] [phone] PCP Opal Pham MA 04/22/24 [employer] Relationship Specialty Start Date End Date Jorge Goncalves MD [address] [place] [phone] PCP - General Family Medicine 11/05/23 Pamela Moore NP [address] [place] [phone] PCP Opal Pham MA 04/22/24 [employer] Operator Relationship Specialty Start Date End Date Pamela Moore NP [address] [place] [phone] PCP - Ankit MURRY 04/22/24 Unallocated, [facility] Provider, [address] [place] [address] PCP - General Family Medicine 07/07/24 [employer] Operator Relationship Specialty Start Date End Date Pamela MooreMARIKA [address] [place] [address] PCP - Ankit MURRY 04/22/24 Unallocated, [facility] Provider, [place] [address] PCP - General Family Medicine 07/07/24 Goals (unrecognized section and content) Goals may [...] BE BASED ON THE PRIMARY CLINICAL RECORDS. [facility]. provides no warranty or guarantee of the accuracy or completeness of information in this document.
== END 2024-07-28 11:16 | disposition home or self-care (01) ==
LOC: US 11:15
PROVIDERS: PCP Nurse Practitioner; Visit Provider Nurse Practitioner
DX: R10.2 Pelvic and perineal pain (principal); D25.9 Leiomyoma of uterus, unspecified
CPT/HCPCS: 76830

== ENCOUNTER 2024-08-18 10:52 | Outpatient (OUT) | payer MEDICARE, SELFPAY ==
--- OUTSIDE RECORDS SUMMARY | 2024-08-18 11:14 | XMS_ITS | CCD ---
Author Organization [facility] Care Team Providers Care Recruit Instructor Name Role Phone AICHHOLZ, LICENSED THERAPIST PAMELA Admitting Unavailable AICHHOLZ, LICENSED THERAPIST PAMELA Attending Unavailable AICHHOLZ, LICENSED THERAPIST PAMELA Primary Care Unavailable AICHHOLZ, LICENSED THERAPIST PAMELA Consulting Unavailable AICHHOLZ, LICENSED THERAPIST PAMELA Admitting Unavailable AICHHOLZ, LICENSED THERAPIST PAMELA Attending Unavailable AICHHOLZ, LICENSED THERAPIST PAMELA Primary Care Unavailable AICHHOLZ, LICENSED THERAPIST PAMLEA Consulting Unavailable AICHHOLZ, LICENSED THERAPIST PAMELA Admitting Unavailable AICHHOLZ, LICENSED THERAPIST PAMELA Attending Unavailable AICHHOLZ, LICENSED THERAPIST PAMELA Primary Care Unavailable AICHHOLZ, LICENSED THERAPIST PAMELA Consulting Unavailable AICHHOLZ, LICENSED THERAPIST PAMELA Admitting Unavailable AICHHOLZ, LICENSED THERAPIST PAMELA Attending Unavailable AICHHOLZ, LICENSED THERAPIST PAMELA Primary Care Unavailable AICHHOLZ, LICENSED THERAPIST PAMELA Consulting Unavailable AICHHOLZ, LICENSED THERAPIST PAMELA Admitting Unavailable AICHHOLZ, LICENSED THERAPIST PAMELA Attending Unavailable AICHHOLZ, LICENSED THERAPIST PAMELA Primary Care Unavailable AICHHOLZ, LICENSED THERAPIST PAMELA Consulting Unavailable AICHHOLZ, LICENSED THERAPIST PAMELA Admitting Unavailable AICHHOLZ, LICENSED THERAPIST PAMELA Attending Unavailable AICHHOLZ, LICENSED THERAPIST PAMELA Primary Care Unavailable AICHHOLZ, LICENSED THERAPIST PAMELA Consulting Unavailable AICHHOLZ, LICENSED THERAPIST PAMELA Admitting Unavailable AICHHOLZ, LICENSED THERAPIST PAMELA Attending Unavailable AICHHOLZ, LICENSED THERAPIST PAMELA Primary Care Unavailable AICHHOLZ, LICENSED THERAPIST PAMELA Consulting Unavailable JORGE GONCALVES Primary Care Unavailable Tab Ibarra Admitting Unavail Tab Jauregui Attending Unavail Jorge Quijano MD Primary Care Provider [phone] MD Jorge Goncalves Primary Care Provider DO Braxton Escalante Attending Provider PAMELA MOORE Primary Care Unavailable BRAXTON ESCALANTE Referring Unavailable BRAXTON ESCALANTE Referring Unavailable PAMELA MOORE Primary Care Unavailable EDWARD ALLAN Attending Unavailabl e PAMELA MOORE Referring Unavailable TAVOHPAMELA HANSEN J Primary Care Unavailable MD Jorge Goncalves Primary Care Provider [phone] DO Braxton Escalante Attending Provider Braxton Escalante Attending Unavailable Jorge Goncalves Primary Care Unavailable Braxton Escalante Admitting Unavailable Braxton Escalante Attending Unavailable Jorge Goncalves Primary Care Unavailable Braxton Escalante Admitting Unavailable Aichholz MARIKA, Pamela Unavailable AICHHOLZ, PAMELA Attending Unavailable AICHHOLZ, PAMELA Attending Unavailable AICHHOLZ, PAMELA Referring Unavailable AICHHOLZ, PAMELA Attending Unavailable AICHHOLZ, PAMELA Attending Unavailable AICHHOLZ, PAMELA Attending Unavailable AICHHOLZ, PAMELA Attending Unavailable AICHHOLZ, PAMELA Attending Unavailable Unallocated Nehemias CARDOSO Provider Primary Care Provi oksana Jorge Goncalves MD Primary Care Provider [phone] Allergies Allergy Classification Reported Allergen(s) Allergy Type Date of Onset Reaction(s) Facility (3 sources) Ampicillin; Translations: [AMPICILLIN] Drug Allergy 02-10-2012 [facility] Repository (12 sources) Ampicillin Drug Allergy 02-18-2023 [facility] (1 source) Ampicillin Drug Allergy 10-04-2021 [facility] Repository Medications Current Medications Medication Drug Class(es) Dates Sig (Normalized) Sig (Original) [id number] 200 actuat albuterol 0.09 mg/actuat metered dose inhaler (14 sources) beta2-Adrenergic Agonist Start: 04-29-2024 Albuterol Sulfate [...] Active alendronic acid 70 mg oral tablet (14 sources) Bisphosphonate Start: 05-31-2024 End: 08-23-2024 alendronate [...] 0 Active atorvastatin 20 mg oral tablet (15 sources) HMG-CoA Reductase Inhibitor Start: 04-29-2024 Atorvastatin [...] 0 Active benzonatate 100 mg oral capsule (12 sources) Non-narcotic Antitussive take 1 capsule by [...] (Therapy completed) cholecalciferol 0.05 mg oral tablet (20 sources) Vitamin D Start: End: 11-27-2 024 cholecalciferol 50 MCG (2000 UT) tablet Indications: Vitamin D Deficiency 2,000 international units once a day 30 tablet 5 11/17/2023 08/18/2024 Discontinued (Therapy completed) End: 08-18-2024 take 1 capsule by mouth once daily Cholecalciferol (Vitamin D3) 50 MCG capsule Take 50 mcg by mouth Daily Pt is taking OTC () 08/18/2024 Discontinued (Therapy completed) cholecalciferol (Vitamin D-3) 125 MCG (5000 UT) capsule Vitamin D3 0 Active docosahexaenoic acid 120 mg / eicosapentaenoic acid 180 mg oral capsule (12 sources) take 1 capsule by mouth once daily omega-3 (fish oil) 1000 MG capsule Take 1 capsule by mouth 1 (one) time each day at the same time. Active fluticasone propionate 0.05 mg/actuat metered dose nasal spray (12 sources) Corticosteroid Start: 05-10-20 take 1 spray(s) nasal route in the morning fluticasone (Flonase) 50 MCG/ACT nasal spray Administer 1 spray into each nostril in the morning. 05/10/2019 Active furosemide 20 mg oral tablet (12 sources) Loop Diuretic End: 08-18-20 furosemide (Lasix) 20 MG tablet Take 20 mg by mouth if needed (prn). 08/18/2024 Discontinued (Therapy completed) levothyroxine sodium 0.025 mg oral tablet (16 sources) l-Thyroxine Start: 07-13-20 End: 10-11-19 take 1 tablet by mouth before mealtime [...] Active loratadine 10 mg disintegrating oral tablet (12 sources) take 1 tablet by dacia th [...] (Therapy completed) Multiple Vitamin (MULTIVITAMIN ADULT PO) (12 sources) Multiple Vitamin (MULTIVITAMIN ADULT PO) Multivitamin Active Multiple Vitamin (MULTIVITAMIN ADULT PO) Multivitamin 0 Active papaya allergenic extract (12 sources) Non-Standardized Food Allergenic Extract Papaya 100 MG tablet Papaya Active Papaya 100 MG ta blet Papaya 0 Active Problems Active Problems Problem Classification Problem Date Documented Date Episodic/Chronic Abdominal pain (19 sources) Generalized abdominal pain; Translations: [Generalized abdominal pain] Onset: 03-08-2024 Resolved: 03-08-2024 03-08-2024 Episodic Anxiety disorders (9 sources) Generalized anxiety disorder; Translations: [Generalized anxiety disorder] Onset: 05-10-2024 05-10-2024 Chronic Blindness and vision defects (3 sources) Presbyopia; Translations: [Myopia, bilateral] Onset: 04-01-2024 Episodic Cataract (1 source) Age-related nuclear cataract, bilateral; Translations: [Age-related nuclear cataract, bilateral] Onset: 04-01-2024 Chronic Disorders of lipid metabolism (20 sources) Hyperlipidemia, unspecified; Translations: [Hyperlipidemia] Onset: 05-08-2022 Chronic Diverticulosis and diverticulitis (12 sources) Diverticulum of large intestine without hemorrhage; Translations: [Diverticulosis of large intestine without perforation or abscess without bleeding] Onset: 11-05-2023 11-05-2023 Chronic Esophageal disorders (20 sources) Laryngopharyngeal reflux; Translations: [Gastro-esophageal reflux disease without esophagitis] Onset: 01-31-2023 01-31-2023 Chronic Essential hypertension (11 sources) Essential hypertension; Translations: [Essential (primary) hypertension] Onset: 05-10-2024 05-10-2024 Chronic Nutritional deficiencies (17 sources) Vitamin D deficiency, unspecified; Translations: [Vitamin D deficiency] Onset: 11-13-2022 11-05-2023 Chronic Osteoarthritis (20 sources) Arthritis of right knee; Translations: [Unilateral primary osteoarthritis, right knee] Onset: 01-31-2023 01-31-2023 Chronic Osteoporosis (14 sources) Osteoporosis; Translations: [Age-related osteoporosis without current [...] in shoulder region, unspecified] 04-29-2024 Episodic Other ear and sense organ disorders (12 sources) Chronic non-infective otitis externa; Translations: [Other otitis externa, bilateral] Onset: 01-31-2023 01-31-2023 Chronic Other ear and sense organ disorders (12 sources) Hearing loss; Translations: [Unspecified hearing loss, unspecified ear] Onset: 01-31-2023 01-31-2023 Chronic Other ear and sense organ disorders (12 sources) Sensorineural hearing loss, bilateral; Translations: [Sensorineural hearing loss, bilateral] Onset: 01-31-2023 01-31-2023 Chronic Other eye disorders (1 source) Dry eye syndrome of bilateral lacrimal glands; Translations: [Dry eye syndrome of bilateral lacrimal glands] Onset: 04-01-2024 Episodic Other female genital disorders (8 sources) Vaginal discharge; Translations: [Other specified noninflammatory disorders of vagina] Onset: 07-07-2024 07-07-2024 Episodic Other non-traumatic joint disorders (3 sources) Pain in right shoulder; Translations: [Right shoulder pain] Onset: 04-29-2024 04-26-2024 Episodic Other nutritional; endocrine; and metabolic disorders (1 source) Obesity; Translations: [Obesity, unspecified] Onset: 09-17-2023 09-17-2023 Chronic Other nutritional; endocrine; and metabolic disorders (20 sources) Body mass index 30+ - obesity; Translations: [Body mass index (BMI) 30.0-30.9, adult] Onset: 11-05-2023 Resolved: 08-18-2024 11-05-2023 Chronic Other nutritional; endocrine; and metabolic disorders (4 sources) Obesity caused by energy imbalance; Translations: [Class 1 obesity due to excess calories without serious comorbidity with body mass index (BMI) of 30.0 to 30.9 in adult] Onset: 08-18-2024 08-18-2024 Chronic Other upper respiratory disease (12 sources) Chronic laryngitis; Translations: [Chronic laryngitis] Onset: 01-31-2023 01-31-2023 Chronic Other upper respiratory disease (12 sources) Allergic rhinitis; Translations: [Allergic rhinitis, unspecified] Onset: 11-05-2023 11-05-2023 Chronic Spondylosis; intervertebral disc disorders; other back problems (12 sources) Degeneration of cervical intervertebral disc; Translations: [Other cervical disc degeneration, unspecified cervical region] Onset: 11-05-2023 11-05-2023 Chronic Thyroid disorders (20 sources) Hypothyroidism, unspecified; Translations: [Acquired hypothyroidism] Onset: 12-16-2022 Chronic Unclassified (1 source) Eye Exam Onset: 04-01-2024 Past or Other Problems Problem Classification Problem Date Documented Da te Episodic/Chronic Diabetes mellitus without complication (15 sources) Prediabetes; Translations: [Prediabetes] Onset: 11-13-2022 11-05-2023 Episodic Immunizations and screening for infectious disease (1 source) Encounter for screening for other viral diseases; Translations: [ENC SCREENING FOR OTH VIRAL DZ] Onset: 05-09-2022 Episodic Mood disorders (9 sources) Mood disorders Onset: 04-14-2024 04-14-2024 Other circulatory disease (9 sources) Elevated blood pressure; Translations: [Elevated blood-pressure reading, without diagnosis of hypertension] Onset: 04-14-2024 Resolved: 05-10-2024 05-10-2024 Episodic Other connective tissue disease (12 sources) Triggering of digit; Translations: [Trigger finger, right ring finger] Onset: 11-05-2023 11-05-2023 Episodic Other connective tissue disease (9 sources) Right rotator cuff syndrome; Translations: [Unspecified rotator cuff tear or rupture of right shoulder, not specified as traumatic] Onset: 05-10-2024 05-10-2024 Episodic Other gastrointestinal disorders (9 sources) Constipation; Translations: [Other constipation] Onset: 03-08-2024 03-08-2024 Episodic Other gastrointestinal disorders (9 sources) Abdominal bloating; Translations: [Abdominal distension (gaseous)] Onset: 03-08-2024 Resolved: 03-08-2024 03-08-2024 Episodic Other lower respiratory disease (12 sources) Cough; Translations: [Cough in adult] Onset: 11-05-2023 11-05-2023 Episodic Other non-traumatic joint disorders (13 sources) Chronic pain of left upper limb; [...] 02-13-2022 Episodic Otitis media and related conditions (12 sources) Dysfunction of left eustachian tube; Translations: [Unspecified Eustachian tube disorder, left ear] Onset: 01-31-2023 01-31-2023 Episodic Residual codes; unclassified (12 sources) Insomnia; Translations: [Insomnia, unspecified] Onset: 11-05-2023 11-05-2023 Episodic Results Test Name Value Interpretation Reference Range Facility IGP,APTIMA HPV,AGE GDLNon AGE GDLN ACOG TESTING Note . [facility] Comment on above: TESTS RESULT FLAG UN ITS REF RANGE LAB Clinician Provided Cytology Information Source.............Cervix;Endocervix No. of containers..01 ThinPrep Vial Age Algo ACOG Karla... Note 01 <21 or >65 or no age provided FLAG LEGEND: L-Low Normal,H-High Normal,LL-Alert Low,HH-Alert High <-Panic Low,>-Panic High,A-Abnormal,AA-Critical Abnormal Performed at: 01 =G [facility] [place] [address] Prerna Arzate MD, PAP IG (IMAGE GUIDED) Note . [facility] Comment on above: TESTS RESULT FLAG UN ITS REF RANGE LAB DIAGNOSIS: 02 NEGATIVE FOR INTRAEPITHELIAL LESION OR MALIGNANCY. Specimen adequacy: 02 Satisfactory for evaluation. Endocervical and/or squamous metaplastic cells (endocervical component) are present. Performed by: Radha Gómez, Tare Man ([facility]) . 02 Note: Note 03 The Pap [...] Low,>-Panic High,A-Abnormal,AA-Critical Abnormal Performed at: 02 [facility] [address] [place] [address] Martin Machado MD, [address] [address] Prerna Arzate MD, Performed at: =G - [facility] [id number] Client Services Account Manager: Prerna Arzate MD, Phone: [phone] Performed at: [facility] [address] [address] [place], [place] [id number] Client Services Account Manager: Martin Machado MD, Phone: [phone] BROOM-ALONE CERVIX ENDOCERVIX [facility] VAGINITIS (HTRX)on 4 ATOPOBIUM VAGINAE 0 [facility] ATOPOBIUM VAGINAE Not detected [facility] BVAB 2,3 (BACTERIAL VAGINOSIS ASSOCIATED BACTERIA 2, 3); MOBILUNCUS SPP 0 [facility] BVAB 2,3 (BACTERIAL VAGINOSIS ASSOCIATED BACTERIA 2, 3); MOBILUNCUS SPP Not detected [facility] JANAY ALBICANS, PARAPSILOSIS, TROPICALIS 0 [facility] JANAY ALBICANS, PARAPSILOSIS, TROPICALIS Not detected [facility] JANAY GLABRATA 0 [facility] JANAY GLABRATA Not detected [facility] JANAY KRUSEI 0 [facility] JANAY KRUSEI Not detected [facility] CHLAMYDIA TRACHOMATIS 0 [facility] CHLAMYDIA TRACHOMATIS Not detected [facility] GARDNERELLA VAGINALIS 0 [facility] GARDNERELLA VAGINALIS Not detected [facility] HERPES SIMPLEX VIRUS 1 0 [facility] HERPES SIMPLEX VIRUS 1 Not detected [facility] HERPES SIMPLEX VIRUS 2 0 [facility] HERPES SIMPLEX VIRUS 2 Not detected [facility] MEGASPHAERA (TYPES 1, 2) 0 [facility] MEGASPHAERA (TYPES 1, 2) Not detected [facility] NEISSERIA GONORRHOEAE 0 [facility] NEISSERIA GONORRHOEAE Not detected [facility] TRICHOMONAS VAGINALIS 0 [facility] TRICHOMONAS VAGINALIS Not detected [facility] XR shoulder RT min 2V*on XR shoulder RT min 2V* [facility] [address] [place] [address] XRay Report Signed Patient: Bernard Ponce MR#: [id number] 2 : 1945 Acct:[id number] Age/Sex: 78 / F ADM Date: 04/29/24 Loc: [facility] Room: Type: [facility] Attending Dr: Braxton Escalante DO Copies [...] Ra Acosta M.D.04/29/2024 3:49 PM Dictation Location: [place] [address] Transcribed By: [facility] 04/29/24 1549 Dictated By: Ra Acosta DO 04/29/24 1548 Signed By: 04/29/24 1549 Normal [facility] XR shoulder LT min 2V*on XR shoulder LT min 2V* [facility] [place] [address] [place] [address] XRay Report Signed Patient: Bernard Ponce MR#: [id number] 2 : 1945 Acct:[id number] Age/Sex: 78 / F ADM Date: 12/11/23 Loc: [facility] Room: Type: [facility] Attending Dr: Braxton Escalante DO Copies [...] Alvaro Carvajal M.D.12/11/2023 12:01 PM Dictation Location: [place] [address] Transcribed By: [facility] 12/11/23 1201 Dictated By: Alvaro Carvajal II, MD 12/11/23 1159 Signed By: 12/11/23 1201 Normal [facility] MG MAMM SCREEN 3D DAVID CADon 01-03-2023 MG MAMM SCREEN 3D DAVID CAD Patient: BERNARD PONCE Exam Date: 01/03/2023 : 1945 Gender:F Ordering : [employer] Admission #: [id number] Family : Order #: [id number] CLICK HERE TO VIEW EXAM RADIOLOGY REPORT [...] breast cancer at age 62. LOCATION: [facility] BREAST COMPOSITION: Scattered areas fibroglandular density. [...] Rosenberg MD on 01/06/2023 at 09:57 Normal [facility] FREE T3on 12-16-2022 FREE T3 2.70 pg/mlL Normal 2.18-3.98 [facility] Comment on above: Performed By: #### T SH, FT3 #### [facility] [address] [place] [address] Dr. Glenny Sneed FREE T4on 12-16-2022 Free T4 [Mass/Vol] 0.92 ng/dL Normal 0.76-1.46 [facility] Comment on above: Performed By: #### F T4 #### [facility] [address] [place] [address] Dr. Glenny Sneed TSHon 12-16-2022 TSH 3.444 uIU/mL Normal 0.358-3.740 [facility] Comment on above: Performed By: #### T SH, FT3 #### [facility] [address] [place] [address] Dr. Glenny Sneed CBC AUTO DIFFon 11-07-2022 BASO # 0.1 103/ul Normal 0.0-0.1 [facility] Comment on above: Performed By: #### T SH, FT3 #### [facility] [address] [place] [address] Dr. Glenny Sneed Basophils/100 WBC (Bld) 1.2 % Normal 0.2-2.0 [facility] Comment on above: Performed By: #### T SH, FT3 #### [facility] [address] [place] [address] Dr. Glenny Sneed EO # 0.2 103/ul Normal 0.0-0.7 [facility] Comment on above: Performed By: #### T SH, FT3 #### [facility] [address] [place] [address] Dr. Glenny Sneed Eosinophils/100 WBC (Bld) 2.8 % Normal 0.9-7.0 [facility] Comment on above: Performed By: #### T SH, FT3 #### [facility] [address] [place] [address] Dr. Glenny Sneed Erythrocyte distribution width (RBC) [Ratio] 13.5 % Normal 11.0-15.0 [facility] Comment on above: Performed By: #### T SH, FT3 #### [facility] [address] [place] [address] Dr. Glenny Sneed Hematocrit (Bld) [Volume fraction] 40.3 % Normal 36.0-48.0 [facility] Comment on above: Performed By: #### T SH, FT3 #### [facility] [address] [place] [address] Dr. Glenny Sneed Hemoglobin (Bld) [Mass/Vol] 12.9 g/dL Normal 12.0-16.0 [facility] Comment on above: Performed By: #### T SH, FT3 #### [facility] [address] [place] [address] Dr. Glenny Sneed IG # 0.01 10e3/ul Normal 0.00-0.03 [facility] Comment on above: Performed By: #### T SH, FT3 #### [facility] [address] [place] [address] Dr. Glenny Sneed IG % 0.2 % Normal 0.0-0.5 [facility] Comment on above: Performed By: #### T SH, FT3 #### [facility] [address] [place] [address] Dr. Glenny Sneed LYMPH # 2.5 103/ul Normal 1.2-3.8 [facility] Comment on above: Performed By: #### T SH, FT3 #### [facility] [address] [place] [address] Dr. Glenny Sneed Lymphocytes/100 WBC (Bld) 38.2 % Normal 20.5-60.0 [facility] Comment on above: Performed By: #### T SH, FT3 #### [facility] [address] [place] [address] Dr. Glenny Sneed MANUAL DIFF REQ NO Normal [facility] Comment on above: Performed By: #### T SH, FT3 #### [facility] [address] [place] [address] Dr. Glenny Sneed MCH (RBC) [Entitic mass] 27.2 pg Normal 26.7-34.0 [facility] Comment on above: Performed By: #### T SH, FT3 #### [facility] [address] [place] [address] Dr. Glenny Sneed MCHC (RBC) [Mass/Vol] 32.0 g/dL Normal 29.9-35.2 [facility] Comment on above: Performed By: #### T SH, FT3 #### [facility] [address] [place] [address] Dr. Glenny Sneed MCV (RBC) [Entitic vol] 84.8 fL Normal 81.0-99.0 [facility] Comment on above: Performed By: #### T SH, FT3 #### [facility] [address] [place] [address] Dr. Glenny Sneed MONO # 0.6 103/ul Normal 0.3-0.8 [facility] Comment on above: Performed By: #### T ZENAIDA, FT3 #### [facility] [address] [place] [address] Dr. Glenny Sneed Monocytes/100 WBC (Bld) 8.5 % Normal 1.7-12.0 [facility] Comment on above: Performed By: #### T SH, FT3 #### [facility] [address] [place] [address] Dr. Glenny Sneed NEUT # 3.2 103/ul Normal 1.4-6.5 [facility] Comment on above: Performed By: #### T SH, FT3 #### [facility] [address] [place] [address] Dr. Glenny Sneed Neutrophils/100 WBC (Bld) 49.1 % Normal 43.0-75.0 [facility] Comment on above: Performed By: #### T ZENAIDA, FT3 #### [facility] [address] [place] [address] Dr. Glenny Sneed Platelet mean volume (Bld) [Entitic vol] 10.2 fL Normal 9.5-13.5 [facility] Comment on above: Performed By: #### T ZENAIDA, FT3 #### [facility] [address] [place] [address] Dr. Glenny Sneed PLT 350 103/ul Normal 150-450 [facility] Comment on above: Performed By: #### T ZENAIDA, FT3 #### [facility] [address] [place] [address] Dr. Glenny Sneed RBC 4.75 106/ul Normal 4.20-5.40 [facility] Comment on above: Performed By: #### T ZENAIDA, FT3 #### [facility] [address] [place] [address] Dr. Glenny Sneed WBC 6.5 103/ul Normal 4.0-11.0 [facility] Comment on above: Performed By: #### T ZENAIDA, FT3 #### [facility] [address] [place] [address] Dr. Glenny Sneed FREE T4on 11-07-2022 Free T4 [Mass/Vol] 1.15 ng/dL Normal 0.76-1.46 [facility] Comment on above: Performed By: #### F T4, VITAD #### [facility] [address] [place] [address] Dr. Glenny Sneed GLYCOHEMOGLOBIN A1Con 2022 ADA RECOMMENDATION SEE BELOW Normal [facility] Comment on above: Result Comment: ADA RECOMMENDED LIMIT 4.0 - 6.0 ADA THERAPEUTIC TARGET < 7.0 ACTION SUGGESTED > 7.0 Performed By: #### A 1C #### [facility] [address] [place] [address] Dr. Glenny Sneed Glucose [Mass/Vol] 120 mg/dL Normal [facility] Comment on above: Performed By: #### A 1C #### [facility] [address] [place] [address] [address] Glenny Sneed HbA1c (Bld) [Mass fraction] 5.8 % Normal 4.5-6.2 [facility] Comment on above: Performed By: #### A 1C #### [facility] [address] [place] [address] [address] Glenny Sneed LIPID PROFILEon 11-07-2022 CHOL-HDL RATIO NORM SEE BELOW Normal [facility] Comment on above: Result Comment: 3.3 - 4.4 LOW RISK 4.4 - 7.1 AVERAGE RISK 7.1 - 11.0 MODERATE RISK >11.0 HIGH RISK Performed By: #### L IPID, CMP, TSH #### [facility] [address] [place] [address] Dr. Glenny Sneed Cholesterol [Mass/Vol] 185 mg/dL Normal <=200 [facility] Comment on above: Performed By: #### L IPID, CMP, TSH #### [facility] [address] [place] [address] [address] Glenny Sneed Cholesterol in HDL [Mass/Vol] 63 mg/dL Critically high 40-60 [facility] Comment on above: Performed By: #### L IPID, CMP, TSH #### [facility] [address] [place] [address] Dr. Glenny Sneed Cholesterol in LDL [Mass/Vol] 87.6 mg/dL Normal [facility] Comment on above: Performed By: #### L IPID, CMP, TSH #### [facility] [address] [address] [address] Glenny Sneed Cholesterol.total/Ch olesterol in HDL [Mass ratio] 2.9 {ratio} Normal [facility] Comment on above: Performed By: #### L IPID, CMP, TSH #### [facility] [address] [address] [address] Glenny Sneed HDL NORMAL > or = 60 mg/dl - LO W CARDIOVASCULAR RISK <40 mg/dl - HIGH CARDIOVASCULAR RISK Normal [facility] Comment on above: Performed By: #### L IPID, CMP, TSH #### [facility] [address] [address] [address] Glenny Sneed LDL CALC NORMAL SEE BELOW Normal [facility] Comment on above: Result Comment: <100 mg/dl OPTIMAL 100 - 129 mg/dl NEAR OR ABOVE OPTIMAL 130 - 159 mg/dl BORDERLINE HIGH 160 - 189 mg/dl HIGH >190 mg/dl VERY HIGH Performed By: #### L IPID, CMP, TSH #### [facility] [address] [address] [address] Glenny Sneed Triglyceride [Mass/Vol] 172 mg/dL Critically high <=150 [facility] Comment on above: Performed By: #### L IPID, CMP, TSH #### [facility] [address] [address] [address] Glenny Sneed VLDL CALC 34.4 mg/dL Normal [facility] Comment on above: Performed By: #### L IPID, CMP, TSH #### [facility] [address] [address] [address] Glenny Sneed PROF 14(COMP METB)on 023 Albumin [Mass/Vol] 4.1 g/dL Normal 3.4-5.0 [facility] Comment on above: Performed By: #### L IPID, CMP, TSH #### [facility] [address] [place] [address] Dr. Glenny Sneed Albumin/Globulin [Mass ratio] 1.0 {ratio} Normal [facility] Comment on above: Performed By: #### L IPID, CMP, TSH #### [facility] [address] [place] [address] Dr. Glenny Sneed ALP [Catalytic activity/Vol] 77 U/L Normal 46-116 [facility] Comment on above: Performed By: #### L IPID, CMP, TSH #### [facility] [address] [place] [address] Dr. Glenny Sneed ALT [Catalytic activity/Vol] 33 U/L Normal 14-59 [facility] Comment on above: Performed By: #### L IPID, CMP, TSH #### [facility] [address] [address] [address] Glenny Sneed Anion gap [Moles/Vol] 13.1 mmol/L Normal [facility] Comment on above: Performed By: #### L IPID, CMP, TSH #### [facility] [address] [address] [address] Glenny Sneed AST [Catalytic activity/Vol] 22 U/L Normal 15-37 [facility] Comment on above: Performed By: #### L IPID, CMP, TSH #### [facility] [address] [address] [address] Glenny Sneed Bilirubin [Mass/Vol] 0.7 mg/dL Normal 0.2-1.0 [facility] Comment on above: Performed By: #### L IPID, CMP, TSH #### [facility] [address] [address] [address] Glenny Sneed Calcium [Mass/Vol] 10.0 mg/dL Normal 8.5-10.1 [facility] Comment on above: Performed By: #### L IPID, CMP, TSH #### [facility] [address] [address] [address] Glenny Sneed Chloride [Moles/Vol] 102 mmol/L Normal 98-107 [facility] Comment on above: Performed By: #### L IPID, CMP, TSH #### [facility] [address] [address] [address] Glenny Sneed CO2 [Moles/Vol] 29.9 mmol/L Normal 21.0-32.0 [facility] Comment on above: Performed By: #### L IPID, CMP, TSH #### [facility] [address] [address] [address] Glenny Sneed Creatinine [Mass/Vol] 0.66 mg/dL Normal 0.55-1.02 [facility] Comment on above: Performed By: #### L IPID, CMP, TSH #### [facility] [address] [address] [address] Glenny Sneed EGFR-AF AUSTRIAN >60 Normal >=60 [facility] Comment on above: Performed By: #### L IPID, CMP, TSH #### [facility] [address] [address] [address] Glenny Sneed EGFR-NON AF AUSTRIAN >60 Normal >=60 [facility] Comment on above: Performed By: #### L IPID, CMP, TSH #### [facility] [address] [address] [address] Glenny Sneed Globulin (S) [Mass/Vol] 4.0 g/dL Normal [facility] Comment on above: Performed By: #### L IPID, CMP, TSH #### [facility] [address] [address] [address] Glenny Sneed Glucose [Mass/Vol] 106 mg/dL Normal 74-106 [facility] Comment on above: Performed By: #### L IPID, CMP, TSH #### [facility] [address] [place] [address] Dr. Glenny Sneed Potassium [Moles/Vol] 4.0 mmol/L Normal 3.5-5.1 [facility] Comment on above: Performed By: #### L IPID, CMP, TSH #### [facility] [address] [address] [address] Glenny Sneed Protein [Mass/Vol] 8.1 g/dL Normal 6.4-8.2 [facility] Comment on above: Performed By: #### L IPID, CMP, TSH #### [facility] [address] [address] [address] Glenny Sneed Sodium [Moles/Vol] 141 mmol/L Normal 136-145 [facility] Comment on above: Performed By: #### L IPID, CMP, TSH #### [facility] [address] [address] [address] Glenny Sneed Urea nitrogen [Mass/Vol] 9.0 mg/dL Normal 7.0-18.0 [facility] Comment on above: Performed By: #### L IPID, CMP, TSH #### [facility] [address] [address] [address] Glenny Sneed Urea nitrogen/Creatinine [Mass ratio] 13.6 mg/mg Normal [facility] Comment on above: Performed By: #### L IPID, CMP, TSH #### [facility] [address] [place] [address] Dr. Glenny Sneed TSHon 11-07-2022 TSH 2.008 uIU/mL Normal 0.358-3.[address] [facility] Comment on above: Performed By: #### L IPID, CMP, TSH #### [facility] [address] [place] [address] Dr. Glenny Sneed UA RANDOM W/MICROSCOPICon BACTERIA NONE SEEN Normal NONE SEEN [facility] Comment on above: Performed By: #### U AMIC #### [facility] [address] [place] [address] Dr. Glenny Sneed Bilirubin Ql (U) Negative Normal NEGATIVE [facility] Comment on above: Performed By: #### U AMIC #### [facility] [address] [place] [address] Dr. Glenny Sneed CAST NONE SEEN Normal NONE SEEN [facility] Comment on above: Performed By: #### U AMIC #### [facility] [address] [place] [address] Dr. Glenny Sneed Clarity (U) CLEAR Normal CLEAR [facility] Comment on above: Performed By: #### U AMIC #### [facility] [address] [place] [address] Dr. Glenny Sneed Color (U) LT. YELLOW Normal YELLOW [facility] Comment on above: Performed By: #### U AMIC #### [facility] [address] [place] [address] Dr. Glenny Sneed Crystals LM Nom (Urine sed) NONE SEEN Normal NONE SEEN [facility] Comment on above: Performed By: #### U AMIC #### [facility] [address] [place] [address] Dr. Glenny Sneed Epithelial cells LM Ql (Urine sed) NONE SEEN Normal NONE SEEN /RARE [facility] Comment on above: Performed By: #### U AMIC #### [facility] [address] [address] [address] Glenny Sneed Glucose Ql (U) Negative Normal NEGATIVE [facility] Comment on above: Performed By: #### U AMIC #### [facility] [address] [address] [address] Glenny Sneed Hemoglobin Ql (U) TRACE-INTACT Abnormal NEGATIVE [facility] Comment on above: Performed By: #### U AMIC #### [facility] [address] [address] [address] Glenny Sneed Ketones Ql (U) Negative Normal NEGATIVE [facility] Comment on above: Performed By: #### U AMIC #### [facility] [address] [place] [address] Dr. Glenny Sneed LEUKOCYTES Negative Normal NEGATIVE [facility] Comment on above: Performed By: #### U AMIC #### [facility] [address] [place] [address] Dr. Glenny Sneed MUCOUS NONE SEEN Normal NONE SEEN [facility] Comment on above: Performed By: #### U AMIC #### [facility] [address] [place] [address] Dr. Glenny Sneed Nitrite Ql (U) Negative Normal NEGATIVE [facility] Comment on above: Performed By: #### U AMIC #### [facility] [address] [place] [address] Dr. Glenny Sneed pH (U) 6.5 [pH] Normal 5-9 [facility] Comment on above: Performed By: #### U AMIC #### [facility] [address] [place] [address] Dr. Glenny Sneed RBC 0-2 Normal 0-2 [facility] Comment on above: Performed By: #### U AMIC #### [facility] [address] [place] [address] Dr. Glenny Sneed SPEC GRAVITY <=1.005 Abnormal 1.005-<=1.025 [facility] Comment on above: Performed By: #### U AMIC #### [facility] [address] [place] [address] Dr. Glenny Sneed UA PROTEIN Negative Normal NEGATIVE/ TRACE [facility] Comment on above: Performed By: #### U AMIC #### [facility] [address] [place] [address] Dr. Glenny Sneed Urobilinogen Qn (U) 0.2 {Justice'U}/dL Normal 0.2 - 1. 0 [facility] Comment on above: Performed By: #### U AMIC #### [facility] [address] [place] [address] Dr. Glenny Sneed WBC NONE SEEN Normal NONE SEEN [facility] Comment on above: Performed By: #### U AMIC #### [facility] [address] [place] [address] Dr. Glenny Sneed VITAMIN D 25 OHon 11-07-2022 VIT D 25-OH 35.2 ng/mL Normal [facility] Comment on above: Performed By: #### F T4, VITAD #### [facility] [address] [place] [address] Dr. Glenny Sneed VIT D RANGES SEE BELOW Normal [facility] Comment on above: Result Comment: <20 ng/mL Vit D deficient 20 - <30 ng/mL Vit D insufficient 30 - 100 ng/mL Vit D sufficient >100 ng/mL Potential Toxicity Performed By: #### F T4, VITAD #### [facility] [address] [place] [address] Dr. Glenny Sneed HEPATITIS C ANTIBODYon 05-10 Hep C Virus Ab <0.1 Normal 0.0-0.9 [facility] Comment on above: Result Comment: Nega tive: [...] Hepatitis C Virus (HCV) RNA, Diagnosis, CORTES (009212) and Hepatitis C Virus (HCV) Antibody with reflex to Quantitative Real-time PCR ([id number]). Performed By: #### T SH, FT3 #### [facility] [address] [id number] Glenny Sneed LIPID PROFILEon 05-08-2022 CHOL-HDL RATIO NORM SEE BELOW Normal [facility] Comment on above: Result Comment: 3.3 - 4.4 LOW RISK 4.4 - 7.1 AVERAGE RISK 7.1 - 11.0 MODERATE RISK >11.0 HIGH RISK Performed By: #### T SH, FT3 #### [facility] [address] [address] [address] Glenny Sneed Cholesterol [Mass/Vol] 173 mg/dL Normal <=200 [facility] Comment on above: Performed By: #### T SH, FT3 #### [facility] [address] [place] [address] Dr. Glenny Sneed Cholesterol in HDL [Mass/Vol] 67 mg/dL Critically high 40-60 [facility] Comment on above: Performed By: #### T SH, FT3 #### [facility] [address] [place] [address] Dr. Glenny Sneed Cholesterol in LDL [Mass/Vol] 77.8 mg/dL Normal [facility] Comment on above: Performed By: #### T SH, FT3 #### [facility] [address] [place] [address] Dr. Glenny Sneed Cholesterol.total/Ch olesterol in HDL [Mass ratio] 2.6 {ratio} Normal [facility] Comment on above: Performed By: #### T SH, FT3 #### [facility] [address] [place], [place] [id number] Dr. Glenny Sneed HDL NORMAL > or = 60 mg/dl - LO W CARDIOVASCULAR RISK <40 mg/dl - HIGH CARDIOVASCULAR RISK Normal [facility] Comment on above: Performed By: #### T SH, FT3 #### [facility] [address] [place], [place] [id number] Dr. Glenny Sneed LDL CALC NORMAL SEE BELOW Normal [facility] Comment on above: Result Comment: <100 mg/dl OPTIMAL 100 - 129 mg/dl NEAR OR ABOVE OPTIMAL 130 - 159 mg/dl BORDERLINE HIGH 160 - 189 mg/dl HIGH >190 mg/dl VERY HIGH Performed By: #### T SH, FT3 #### [facility] [address] [place] [address] Dr. Glenny Sneed Triglyceride [Mass/Vol] 141 mg/dL Normal <=150 [facility] Comment on above: Performed By: #### T SH, FT3 #### [facility] [address] [place] [address] Dr. Glenny Sneed VLDL CALC 28.2 mg/dL Normal [facility] Comment on above: Performed By: #### T SH, FT3 #### [facility] [address] [place] [address] Dr. Glenny Sneed LIVER PROFILEon 05-08-2022 Albumin [Mass/Vol] 4.0 g/dL Normal 3.4-5.0 [facility] Comment on above: Performed By: #### T SH, FT3 #### [facility] [address] [place] [address] Dr. Glenny Sneed Albumin/Globulin [Mass ratio] 1.0 {ratio} Normal [facility] Comment on above: Performed By: #### T SH, FT3 #### [facility] [address] [place] [address] Dr. Glenny Sneed ALP [Catalytic activity/Vol] 77 U/L Normal 46-116 [facility] Comment on above: Performed By: #### T SH, FT3 #### [facility] [address] [place] [address] Dr. Glenny Sneed ALT [Catalytic activity/Vol] 39 U/L Normal 14-59 [facility] Comment on above: Performed By: #### T SH, FT3 #### [facility] [address] [place] [address] Dr. Glenny Sneed AST [Catalytic activity/Vol] 20 U/L Normal 15-37 [facility] Comment on above: Performed By: #### T SH, FT3 #### [facility] [address] [place] [address] Dr. Glenny Sneed BILI, CONJUGATED 0.1 mg/dL Normal 0.0-0.2 [facility] Comment on above: Performed By: #### T SH, FT3 #### [facility] [address] [place] [address] Dr. Glenny Sneed Bilirubin [Mass/Vol] 0.7 mg/dL Normal 0.2-1.0 [facility] Comment on above: Performed By: #### T SH, FT3 #### [facility] [address] [place] [address] Dr. Glenny Sneed Globulin (S) [Mass/Vol] 4.0 g/dL Normal [facility] Comment on above: Performed By: #### T SH, FT3 #### [facility] [address] [place] [address] Dr. Glenny Sneed Protein [Mass/Vol] 8.0 g/dL Normal 6.4-8.2 [facility] Comment on above: Performed By: #### T SH, FT3 #### [facility] [address] [place] [address] Dr. Glenny Sneed LIVER PROFILEon 02-13-2022 Albumin [Mass/Vol] 3.9 g/dL Normal 3.4-5.0 [facility] Comment on above: Performed By: #### T ZENAIDA, FT3 #### [facility] [address] [place] [address] Dr. Glenny Sneed Albumin/Globulin [Mass ratio] 1.0 {ratio} Normal [facility] Comment on above: Performed By: #### T SH, FT3 #### [facility] [address] [place] [address] Dr. Glenny Sneed ALP [Catalytic activity/Vol] 112 U/L Normal 46-116 [facility] Comment on above: Performed By: #### T SH, FT3 #### [facility] [address] [place] [address] Dr. Glenny Sneed ALT [Catalytic activity/Vol] 50 U/L Normal 14-59 [facility] Comment on above: Performed By: #### T SH, FT3 #### [facility] [address] [place] [address] Dr. Glenny Sneed AST [Catalytic activity/Vol] 25 U/L Normal 15-37 [facility] Comment on above: Performed By: #### T SH, FT3 #### [facility] [address] [place] [address] Dr. Glenny Sneed BILI, CONJUGATED 0.2 mg/dL Normal 0.0-0.2 [facility] Comment on above: Performed By: #### T SH, FT3 #### [facility] [address] [place] [address] Dr. Glenny Sneed Bilirubin [Mass/Vol] 0.7 mg/dL Normal 0.2-1.0 [facility] Comment on above: Performed By: #### T SH, FT3 #### [facility] [address] [place] [address] Dr. Glenny Sneed Globulin (S) [Mass/Vol] 4.0 g/dL Normal [facility] Comment on above: Performed By: #### T ZENAIDA, FT3 #### [facility] [address] [place] [address] Dr. Glenny Sneed Protein [Mass/Vol] 7.9 g/dL Normal 6.4-8.2 [facility] Comment on above: Performed By: #### T ZENAIDA, FT3 #### [facility] [address] [place] [address] Dr. Glenny Sneed SGOTon 01-23-2022 AST [Catalytic activity/Vol] 41 U/L Critically high 15-37 [facility] Comment on above: Performed By: #### T ZENAIDA, FT3 #### [facility] [address] [place] [address] Dr. Glenny Sneed SGPTon 01-23-2022 ALT [Catalytic activity/Vol] 85 U/L Critically high 14-59 [facility] Comment on above: Performed By: #### T ZENAIDA, FT3 #### [facility] [address] [place] [address] Dr. Glenny Sneed LIPID PROFILEon 01-07-2022 CHOL-HDL RATIO NORM SEE BELOW Normal [facility] Comment on above: Result Comment: 3.3 - 4.4 LOW RISK 4.4 - 7.1 AVERAGE RISK 7.1 - 11.0 MODERATE RISK >11.0 HIGH RISK Performed By: #### T SH, FT3 #### [facility] [address] [address] [address] lGenny Sneed Cholesterol [Mass/Vol] 144 mg/dL Normal <=200 [facility] Comment on above: Performed By: #### T SH, FT3 #### [facility] [address] [address] [address] Glenny Sneed Cholesterol in HDL [Mass/Vol] 63 mg/dL Critically high 40-60 [facility] Comment on above: Performed By: #### T SH, FT3 #### [facility] [address] [address] [address] Glenny Sneed Cholesterol in LDL [Mass/Vol] 56.2 mg/dL Normal [facility] Comment on above: Performed By: #### T SH, FT3 #### [facility] [address] [place] [address] Dr. Glenny Sneed Cholesterol.total/Ch olesterol in HDL [Mass ratio] 2.3 {ratio} Normal [facility] Comment on above: Performed By: #### T SH, FT3 #### [facility] [address] [place] [address] Dr. Glenny Sneed HDL NORMAL > or = 60 mg/dl - LO W CARDIOVASCULAR RISK <40 mg/dl - HIGH CARDIOVASCULAR RISK Normal [facility] Comment on above: Performed By: #### T SH, FT3 #### [facility] [address] [place] [address] Dr. Glenny Sneed LDL CALC NORMAL SEE BELOW Normal [facility] Comment on above: Result Comment: <100 mg/dl OPTIMAL 100 - 129 mg/dl NEAR OR ABOVE OPTIMAL 130 - 159 mg/dl BORDERLINE HIGH 160 - 189 mg/dl HIGH >190 mg/dl VERY HIGH Performed By: #### T SH, FT3 #### [facility] [address] [address] [address] Glenny Sneed Triglyceride [Mass/Vol] 124 mg/dL Normal <=150 [facility] Comment on above: Performed By: #### T SH, FT3 #### [facility] [address] [address] [address] Gelnny Sneed VLDL CALC 24.8 mg/dL Normal [facility] Comment on above: Performed By: #### T SH, FT3 #### [facility] [address] [place], [place] [address] Dr. Glenny Sneed SGOTon 01-07-2022 AST [Catalytic activity/Vol] 53 U/L Critically high 15-37 [facility] Comment on above: Performed By: #### T SH, FT3 #### [facility] [address] [place], [place] [address] Dr. Glenny Sneed SGPTon 01-07-2022 ALT [Catalytic activity/Vol] 108 U/L Critically high 14-59 [facility] Comment on above: Performed By: #### T SH, FT3 #### [facility] [address] [address] [address] Glenny Sneed Vital Signs Date Time Vital Sign Value Performing Clinician Faci lity 08-18-2024 10:06-0500 Diastolic blood pressure 70 mm[Hg] Pamela Moore ANIMAL RIDE MANAGER Work Phone: [facility] 08-18-2024 10:06-0500 Systolic blood pressure 154 mm[Hg] Pamela Moore ANIMAL RIDE MANAGER Work Phone: [facility] 08-18-2024 09:48-0500 Body height 154.9 cm Pamela Moore ANIMAL RIDE MANAGER Work Phone: [facility] 08-18-2024 09:48-0500 Body mass index (BMI) [Ratio] 30.08 kg/m2 Pamela Moore ANIMAL RIDE MANAGER Work Phone: [facility] 08-18-2024 09:48-0500 Body temperature 97.81 [degF] Pamela Moore ANIMAL RIDE MANAGER Work Phone: [facility] 08-18-2024 09:48-0500 Body weight 72.21 kg Pamela Moore ANIMAL RIDE MANAGER Work Phone: [facility] 08-18-2024 09:48-0500 Heart rate 59 /min Pamela Aichholz ANIMAL RIDE MANAGER Work Phone: [facility] 08-18-2024 09:48-0500 Respiratory rate 19 /min Pamela Aichholz ANIMAL RIDE MANAGER Work Phone: [facility] 08-18-2024 09:48-0500 SaO2% (BldA) [Mass fraction] 99 % Pamela Aichholz ANIMAL RIDE MANAGER Work Phone: [facility] 07-07-2024 10:27-0400 Body height 154.9 cm Pamela Aichholz ANIMAL RIDE MANAGER Work Phone: [facility] 07-07-2024 10:27-0400 Body mass index (BMI) [Ratio] 29.97 kg/m2 Pamela Aichholz ANIMAL RIDE MANAGER Work Phone: [facility] 07-07-2024 10:27-0400 Body temperature 98.49 [degF] Pamela Aichholz ANIMAL RIDE MANAGER Work Phone: [facility] 07-07-2024 10:27-0400 Body weight 71.94 kg Pamela Aichholz ANIMAL RIDE MANAGER Work Phone: [facility] 07-07-2024 10:27-0400 Diastolic blood pressure 62 mm[Hg] Pamela Aichholz ANIMAL RIDE MANAGER Work Phone: [facility] 07-07-2024 10:27-0400 Heart rate 64 /min Pamela Aichholz ANIMAL RIDE MANAGER Work Phone: [facility] 07-07-2024 10:27-0400 Respiratory rate 20 /min Pamela Aichholz ANIMAL RIDE MANAGER Work Phone: [facility] 07-07-2024 10:27-0400 SaO2% (BldA) [Mass fraction] 98 % Pamela Aichholz ANIMAL RIDE MANAGER Work Phone: [facility] 07-07-2024 10:27-0400 Systolic blood pressure 142 mm[Hg] Pamela Aichholz ANIMAL RIDE MANAGER Work Phone: [facility] 11-05-2023 09:44-0500 Body height 154.9 cm Pamela Oscar ANIMAL RIDE MANAGER Work Phone: [facility] 11-05-2023 09:44-0500 Body mass index (BMI) [Ratio] 30 kg/m2 Pamela Korinz ANIMAL RIDE MANAGER Work Phone: [facility] 11-05-2023 09:44-0500 Body temperature 97.5 [degF] Pamela Oscar ANIMAL RIDE MANAGER Work Phone: [facility] 11-05-2023 09:44-0500 Body weight 72.03 kg Pamela Oscar ANIMAL RIDE MANAGER Work Phone: [facility] 11-05-2023 09:44-0500 Diastolic blood pressure 68 mm[Hg] Pamela Moore ANIMAL RIDE MANAGER Work Phone: [facility] 11-05-2023 09:44-0500 Heart rate 61 /min Pamela Oscar ANIMAL RIDE MANAGER Work Phone: [facility] 11-05-2023 09:44-0500 Respiratory rate 18 /min Pamela Korinz ANIMAL RIDE MANAGER Work Phone: [facility] 11-05-2023 09:44-0500 SaO2% (BldA) [Mass fraction] 98 % Pamelamaria elena Moore ANIMAL RIDE MANAGER Work Phone: [facility] 11-05-2023 09:44-0500 Systolic blood pressure 138 mm[Hg] Pamela Moore ANIMAL RIDE MANAGER Work Phone: [facility] Healthcare Encounters Encounter Date Encounter Type Care Provider Facility Start: 08-18-2024 End: 08-18-2024 Bamboo flowsheet Pamela Moore ANIMAL RIDE MANAGER Work Phone: [facility] Start: 08-18-2024 End: 08-18-2024 Bamboo flowsheet Pamela Moore ANIMAL RIDE MANAGER Work Phone: [facility] Start: 08-18-2024 End: 08-18-2024 Office outpatient visit 15 minutes Pamela Moore ANIMAL RIDE MANAGER Work Phone: [facility] Comment on above: Primary hypertension (CMS/HCC) (Primary Dx); Pelvic pain; Gastroesophageal reflux disease, unspecified whether esophagitis present; Obesity (BMI 30-39.9); Vitamin D deficiency; Class 1 obesity due to excess calories without serious comorbidity with body mass index (BMI) of 30.0 to 30.9 in adult Start: 07-13-2024 End: 07-13-2024 Refill Pamela Moore ANIMAL RIDE MANAGER Work Phone: [facility] Comment on above: Hypothyroidism (acqu ired) (CMS/HCC) (Primary Dx) Start: 07-07-2024 End: 07-07-2024 Bamboo flowsheet Pamela Moore ANIMAL RIDE MANAGER Work Phone: [facility] Start: 07-07-2024 End: 07-13-2024 Bamboo flowsheet Pamela Moore ANIMAL RIDE MANAGER Work Phone: [facility] Start: 07-07-2024 End: 07-13-2024 Clinisync Result Encounter Pamela Moore NP Work Phone: [facility] External Department Unsolicited Start: 07-07-2024 End: 07-09-2024 External Result Encounter Pamela Moore ANIMAL RIDE MANAGER Work Phone: [facility] External Department Unsolicited Start: 07-07-2024 End: 07-07-2024 Office outpatient visit 25 minutes Pamela Moore NP Work Phone: [facility] Comment on above: Encounter for well w kathy exam with routine gynecological exam (Primary Dx); Hypothyroidism (acquired) ([facility]); Vaginal discharge; Pelvic pain Start: 07-07-2024 End: 07-07-2024 Patient encounter procedure Pamela Moore NP Work Phone: [facility] Start: 07-07-2024 End: 07-07-2024 ambulatory PAMELA MOORE Not Available Start: 06-24-2024 End: 06-25-2024 Refill Pamela Moore ANIMAL RIDE MANAGER Work Phone: [facility] Comment on above: Hyperlipidemia, unsp ecified (CMS/HCC) Start: 06-10-2024 End: 06-10-2024 ambulatory PAMELA AICHHOLZ Not Available Start: 05-10-2024 End: 05-10-2024 ambulatory PAMELA AICHHOLZ Not Available Start: 04-29-2024 End: 04-29-2024 ambulatory MD Jorge Goncalves Work Phone: [facility] Work Phone: Start: 04-29-2024 End: 04-29-2024 Patient encounter procedure MD Jorge Goncalves Work Phone: [facility] Work Phone: Start: 04-29-2024 End: 04-29-2024 Patient encounter procedure MD Jorge Goncalves Work Phone: [facility] Start: 04-29-2024 End: 04-29-2024 ambulatory MD Jorge Goncalves Work Phone: [facility] Work Phone: Start: 04-14-2024 Patient encounter procedure Pamela Tavohholz ANIMAL RIDE MANAGER Work Phone: [facility] Start: 04-14-2024 End: 04-14-2024 ambulatory PAMELA AICHHOLZ Not Available Start: 04-01-2024 End: 04-01-2024 ambulatory EDWARD ALLAN [facility] Start: 03-08-2024 End: 03-08-2024 ambulatory PAMELA AICHHOLZ Not Available Start: 12-22-2023 End: 01-21-2024 ambulatory BRAXTON ESCALANTE [facility] Start: 12-15-2023 End: 12-22-2023 [facility] Start: 12-11-2023 End: 12-11-2023 ambulatory MD Jorge Goncalves Work Phone: [facility] Work Phone: Start: 12-11-2023 End: 12-11-2023 Patient encounter procedure MD Jorge Goncalves Work Phone: [facility] Work Phone: Start: 11-05-2023 Bamboo flowsheet Pamela Aichholz ANIMAL RIDE MANAGER Work Phone: [facility] Start: 11-05-2023 Bamboo flowsheet Pamela Aichholz ANIMAL RIDE MANAGER Work Phone: [facility] Start: 11-05-2023 End: 11-05-2023 Office outpatient visit 25 minutes Pamela Moore ANIMAL RIDE MANAGER Work Phone: [facility] Comment on above: Gastroesophageal ref lux disease, unspecified whether esophagitis present (Primary Dx); Age related osteoporosis, unspecified pathological fracture presence (CMS/[facility]); Vitamin D deficiency; Pre-diabetes; Hypothyroidism (acquired) (CMS/[facility]); Mixed hyperlipidemia ([facility]); Encounter for screening mammogram for malignant neoplasm of breast; BMI 30.0-30.9,adult; Chronic left shoulder pain Start: 11-05-2023 End: 11-05-2023 ambulatory PAMELA AICHHOLZ Not Available Start: 09-17-2023 End: 09-17-2023 ambulatory PAMELA AICHHOLZ Not Available Start: 02-20-2023 ambulatory JORGE GONCALVES Facility :[facility] Start: 01-03-2023 End: 01-04-2023 ambulatory LICENSED THERAPIST PAMELA AICHHOLZ Facility:[facility] Start: 12-16-2022 End: 12-17-2022 ambulatory LICENSED THERAPIST PAMELA AICHHOLZ Facility:[facility] Start: 11-07-2022 End: 11-08-2022 ambulatory LICENSED THERAPIST PAMELA AICHHOLZ Facility:[facility] Start: 05-08-2022 End: 05-09-2022 ambulatory LICENSED THERAPIST PAMELA AICHHOLZ Facility:[facility] Start: 02-13-2022 End: 02-14-2022 ambulatory LICENSED THERAPIST PAMELA AICHHOLZ Facility:[facility] Start: 01-23-2022 End: 01-24-2022 ambulatory LICENSED THERAPIST PAMELA AICHJUSTINYamile Facility:[facility] Start: 01-07-2022 End: 01-08-2022 ambulatory LICENSED THERAPIST PAMELA HIGHTOWERJUSTINYamile Facility:[facility] Procedures Date Procedure Procedure Detail Performing Clinician Start: 07-07-2024 IGP,APTIMA HPV,AGE GDLN Pamela Tavoevertonsharda ANIMAL RIDE MANAGER Work Phone: Start: 07-07-2024 VAGINITIS (HTRX) Pamela munoz ANIMAL RIDE MANAGER Work Phone: Start: 04-29-2024 Plain X-ray of right shoulder MD Jorge Goncalves Work Phone: Start: 12-11-2023 Plain X-ray of left shoulder MD Jorge Goncalves Work Phone: Start: 05-23-2021 Colonoscopy Pamela john ANIMAL RIDE MANAGER Work Phone: Plan of Treatment Date Care Activity Detail Author Start: 05-23-2031 Screening for malignant neoplasm of colon [facility] Start: 04-14-2025 Medicare Annual Wellness (AWV) Medicare Annual Wellness (AWV) [facility] Start: 09-09-2024 End: 09-09-2024 Patient encounter procedure 09/09/2024 9:00 AM EST Office Visit [facility] [address] [place] [address] Pamela Moore NP [address] [place] [id number] [facility] Start: 08-18-2024 End: 08-18-2024 Patient encounter procedure [facility] Comment on above: Pelvic pain (Primary Dx); Primary hypertension (CMS/HCC); Gastroesophageal reflux disease, unspecified whether esophagitis present; Obesity (BMI 30-39.9) Start: 07-07-2024 End: 07-07-2025 THIN PREP TIS PAP AND HR HPV DNA THIN PREP TIS PAP AND HR HPV DNA Pathology and Cytology Routine Encounter for well woman exam with routine gynecological exam Expected: 07/07/2024 (Approximate), Expires: 07/07/2025 [facility] Work Phone: Comment on above: Expected: 07/07/2024 (Approximate), Expi res: 07/07/2025 Start: 07-07-2024 End: 07-07-2025 US Pelvis transvaginal US pelvis transvaginal Imaging Routine Pelvic pain Expected: 07/07/2024 (Approximate), Expires: 07/07/2025 [facility] Comment on above: Expected: 07/07/2024 (Approximate), Expi res: 07/07/2025 Start: 07-07-2024 End: 07-07-2025 VAGINITIS (HTRX) VAGINITIS (HTRX) Lab Routine Vaginal discharge Expected: 07/07/2024 (Approximate), Expires: 07/07/2025 [facility] Comment on above: Expected: 07/07/2024 (Approximate), Expi res: 07/07/2025 Start: 07-07-2024 End: 07-07-2024 Patient encounter procedure [facility] Comment on above: Hypothyroidism (acquired) (CMS/HCC) Start: 05-08-2024 Medicare Annual Wellness (AWV) Medicare Annual Wellness (AWV) [facility] Start: 04-29-2024 Plain X-ray of right shoulder XR shoulder RT min 2V* [facility] Start: 04-29-2024 XR Shoulder - right Views [facility] Start: 03-08-2024 End: 03-08-2024 Patient encounter procedure 03/08/2024 9:40 AM EDT Office Visit [facility] [address] [place] [address] Pamela Moore NP [address] [place] [phone] [facility] Start: 01-05-2024 End: 01-03-2025 MG Breast - bilateral Screening Bilateral screening mammogram Imaging Routine Encounter for screening mammogram for malignant neoplasm of breast Expected: 01/05/2024 (Approximate), Expires: 01/03/2025 [facility] Comment on above: Expected: 01/05/2024 (Approximate), Expi res: 01/03/2025 Start: 12-11-2023 Plain X-ray of left shoulder XR shoulder LT min 2V* [facility] Start: 12-11-2023 XR Shoulder - left Views [facility] Start: 11-05-2023 End: 11-05-2024 25-hydroxyvitamin D3 [Mass/volume] in Serum or Plasma Vitamin D 25 hydroxy Lab Routine Vitamin D deficiency Expected: 11/05/2023 (Approximate), Expires: 11/05/2024 [facility] Comment on above: Expected: 11/05/2023 (Approximate), Expi res: 11/05/2024 Start: 11-05-2023 End: 11-05-2024 CBC W Auto Differential panel - Blood CBC and differential Lab Routine Gastroesophageal reflux disease, unspecified whether esophagitis present Expected: 11/05/2023 (Approximate), Expires: 11/05/2024 [facility] Work Phone: Comment on above: Expected: 11/05/2023 (Approximate), Expi res: 11/05/2024 Start: 11-05-2023 End: 11-05-2024 Comprehensive metabolic 2000 panel - Serum or Plasma Comprehensive metabolic panel Lab Routine Gastroesophageal reflux disease, unspecified whether esophagitis present Age related osteoporosis, unspecified pathological fracture presence (CMS/HCC) Vitamin D deficiency Pre-diabetes Mixed hyperlipidemia (CMS/HCC) Expected: 11/05/2023 (Approximate), Expires: 11/05/2024 [facility] Comment on above: Expected: 11/05/2023 (Approximate), Expi res: 11/05/2024 Start: 11-05-2023 End: 11-05-2024 DXA Skeletal system Views for bone density DEXA bone density Imaging Routine Age related osteoporosis, unspecified pathological fracture presence (CMS/HCC) Expected: 11/05/2023 (Approximate), Expires: 11/05/2024 [facility] Comment on above: Expected: 11/05/2023 (Approximate), Expi res: 11/05/2024 Start: 11-05-2023 End: 11-05-2024 Hemoglobin A1c measurement Hemoglobin A1c Lab Routine Pre-diabetes Expected: 11/05/2023 (Approximate), Expires: 11/05/2024 [facility] Comment on above: Expected: 11/05/2023 (Approximate), Expi res: 11/05/2024 Start: 11-05-2023 End: 11-05-2024 Lipid 1996 panel - Serum or Plasma Lipid panel Lab Routine Pre-diabetes Hypothyroidism (acquired) (CMS/HCC) Mixed hyperlipidemia (CMS/HCC) Expected: 11/05/2023 (Approximate), Expires: 11/05/2024 [facility] Comment on above: Expected: 11/05/2023 (Approximate), Expi res: 11/05/2024 Start: 11-05-2023 End: 11-05-2024 Microalbumin/Creatinine panel in random Urine Microalbumin / creatinine, urine ratio Lab Routine Pre-diabetes Expected: 11/05/2023 (Approximate), Expires: 11/05/2024 [facility] Comment on above: Expected: 11/05/2023 (Approximate), Expi res: 11/05/2024 Start: 11-05-2023 End: 11-05-2024 Urinalysis complete panel - Urine Urinalysis with reflex microscopic (clean catch) Lab Routine Pre-diabetes Expected: 11/05/2023 (Approximate), Expires: 11/05/2024 [facility] Comment on above: Expected: 11/05/2023 (Approximate), Expi res: 11/05/2024 Start: 11-05-2023 End: 11-05-2023 Patient encounter procedure 11/05/2023 9:40 AM EST Office Visit [facility] [address] [place] [address] Pamela Moore NP [address] [place] [address] Gastroesophageal reflux disease, unspecified whether esophagitis present (Primary Dx); Age related osteoporosis, unspecified pathological fracture presence (CMS/HCC); Vitamin D deficiency; Pre-diabetes; Hypothyroidism (acquired) (CMS/HCC); Mixed hyperlipidemia (CMS/HCC); Encounter for screening mammogram for malignant neoplasm of breast [facility] Comment on above: Gastroesophageal reflux disease, unspeci fied whether esophagitis present (Primary Dx); Age related osteoporosis, unspecified pathological fracture presence (CMS/HCC); Vitamin D deficiency; Pre-diabetes; Hypothyroidism (acquired) (CMS/HCC); Mixed hyperlipidemia (CMS/HCC); Encounter for screening mammogram for malignant neoplasm of breast Start: 05-23-2023 Influenza vaccination Influenza Vaccine (#1) [facility] Start: 2012 Pneumococcal Vaccine: 65+ Years (1 - PCV) Pneumococcal Vaccine: 65+ Years (1 - PCV) [facility] Start: 1947 Screening for malignant neoplasm of colon [facility] Payers Date Payer Category Payer Self-pay [id number] 2021 Medicare [employer] ADV[employer]AGE [facility] MEDIC[employer] ADV[employer]AGE [id number] 2021-Present [address] [place] [id number] 2021 Medicare (Managed Care) [employer] [facility] AD[facility] [id number] 1959 Unknown [id number] 1947 Unknown [id number] 2.16.840.1.042163.3.579.2. 593 1947 Unknown [id number] 2.16.840.1.057457.3.579.2. 593 1947 Unknown [id number] 2.16.840.1.661965.3.579.2. 593 1947 Unknown [id number] 2.16.840.1.936325.3.579.2. 593 1947 Unknown [id number] 2.16.840.1.767580.3.579.2. 593 1947 Unknown [id number] 2.16.840.1.428431.3.579.2. 593 1947 Unknown [id number] 2.16.840.1.999809.3.579.2. 593 1947 Unknown [id number] 2.16.840.1.784641.3.579.2. 718 1947 Unknown [id number] 2.16.840.1.994868.3.579.2. 1286 1947 Unknown [id number] 2.16.840.1.646649.3.579.2. 1286 1947 Unknown [id number] 2.16.840.1.328448.3.579.2. 1286 1947 Unknown [id number] 2.16.840.1.356919.3.579.2. 1259 1947 Unknown [id number] 2.16.840.1.797072.3.579.2. 1259 1947 Unknown [id number] 2.16.840.1.147976.3.579.2. 1259 1947 Unknown [id number] 2.16.840.1.718443.3.579.2. 1259 1947 Unknown [id number] 2.16.840.1.786332.3.579.2. 1259 1947 Unknown [id number] 2.16.840.1.521404.3.579.2. 1259 1947 Unknown [id number] 2.16.840.1.330954.3.579.2. 1259 Medicaid Medicaid [id number] Medicare Medicare [id number] Unknown [id number] 2.16.840.1.912640.3.579.2. 531 Unknown [id number] 2.16.840.1.372748.3.579.2. 531 Worker's Compensation [id number] Social History Date Type Detail Facility Start: [...] Start: 1945 Sex Assigned At Female F [facility] Clinical Notes 11-05-2023 to 08-18-2024 Pamela Moore NP - 08/18/2024 10:31 AM Donell Moore NP - 08/18/2024 10:30 AM Donell Moore NP - 08/18/2024 10:07 AM Donell Moore NP - 08/18/2024 9:40 AM ESTPatient Instructions Note Date & Type Note Facility 08-18-2024 History of Presen t illness Narrative Associated Problem(s): Vitamin D deficiency Takes OTC vit d supplement Associated Problem(s): Class 1 obesity due to excess calories without serious comorbidity with body mass index (BMI) of 30.0 to 30.9 in adult Discussed with patient their BMI (actual, verses recommended). We have also discussed lifestyle modifications: attempts to perform physical activity as chronic conditions allow, also to monitor dietary intake: increasing protein/fruits/veggies and lowering carb intake (unless contraindicated). Limit sodas, juices, and sugary drinks. Associated Problem(s): Pelvic pain Had a pelvic US: 5mm leiomyoma Minimal to no pelvic pain Images from the original note were not included. Bernard Ponce is a 78 y.o. female presents with chief complaint of Hypertension HPI: Here for recheck of blood pressure: She feels she has White [place]at Hypertension, feels she has been racing around this morning. Does not check blood pressure at home. No LE edema, no chest pain/pressure, no MENDEZ no dizziness noted. Thyroid Problem Presents for follow-up visit. Patient reports no anxiety, constipation, depressed mood, diarrhea, fatigue, hoarse voice, leg swelling, menstrual problem, tremors or weight gain. The symptoms have been stable. SUBJECTIVE: MEDICATIONS: Current Outpatient Medications Medication Instructions albuterol HFA 90 mcg/act inhaler 2 puffs, Inhalation, Every 6 hours PRN alendronate (FOSAMAX) 70 mg, Oral, Every 7 days atorvastatin (LIPITOR) 20 mg, Oral, Nightly benzonatate (TESSALON) 100 mg, 3 times daily PRN cholecalciferol (VITAMIN D-3) 2,000 Units, Daily fluticasone (Flonase) 50 MCG/ACT nasal spray 1 spray, Daily levothyroxine (SYNTHROID) 25 mcg, Oral, Daily before breakfast loratadine (CLARITIN REDITABS) 10 mg, Daily Multiple Vitamin (MULTIVITAMIN ADULT PO) Multivitamin omega-3 (fish oil) 1000 MG capsule 1 capsule, Every 24 hours Papaya 100 MG tablet Papaya ALLERGIES: Allergies Allergen Reactions Ampicillin Hives REVIEW OF SYMPTOMS: Review of Systems Constitutional: Negative for appetite change, chills, fatigue, fever and weight gain. HENT: Negative for congestion, ear pain, hoarse voice and sore throat. Itchy ears Eyes: Negative for pain, discharge, redness and visual disturbance. Respiratory: Negative for cough and wheezing. Cardiovascular: Negative for leg swelling. Gastrointestinal: Negative for abdominal pain, blood in stool, constipation, diarrhea, nausea and vomiting. Occ dysphagia Genitourinary: Negative for difficulty urinating, dysuria, frequency and menstrual problem. Musculoskeletal: Positive for arthralgias. Negative for back pain, joint swelling and myalgias. Skin: Negative for rash and wound. Neurological: Negative for dizziness, tremors, seizures and syncope. Psychiatric/Behavioral: Negative for behavioral problems, self-injury and [...] father and mother. OBJECTIVE: Visit Vitals BP 154/70 (BP Location: Right arm, Patient Position: Sitting, BP Cuff Size: Adult long) Pulse 59 Temp 97.8 F (Temporal) Resp 19 Ht 5' 1 Wt 159 lb 3.2 oz SpO2 99% BMI 30.08 kg/m Smoking Status Never BSA 1.76 m Physical Exam Vitals and nursing note reviewed. Constitutional: General: She is not in acute distress. Appearance: Normal appearance. HENT: Head: Normocephalic and atraumatic. Right Ear: Tympanic membrane, ear canal and external ear normal. Left Ear: Tympanic membrane, ear canal and external ear normal. Nose: Rhinorrhea present. No congestion. Comments: Pale/boggy Mouth/Throat: Mouth: Mucous membranes are moist. Eyes: Extraocular Movements: Extraocular movements intact. Conjunctiva/sclera: Conjunctivae normal. Neck: Vascular: No carotid bruit. Cardiovascular: Rate and Rhythm: Normal rate and regular rhythm. Pulses: Normal pulses. Heart sounds: Normal heart sounds. Pulmonary: Effort: Pulmonary effort is normal. Breath sounds: Normal breath sounds. No wheezing or rales. Abdominal: General: Bowel sounds are normal. There is no distension. Palpations: Abdomen is soft. There is no mass. Tenderness: There is no abdominal tenderness. Musculoskeletal: General: Normal range of motion. Cervical back: Normal range of motion and neck supple. Right lower leg: No edema. Left lower leg: No edema. Lymphadenopathy: Cervical: No cervical adenopathy. Skin: General: Skin is warm and dry. Capillary Refill: Capillary refill takes 2 to 3 seconds. Findings: No rash. Neurological: General: No focal deficit present. Mental Status: She is alert and oriented to person, place, and time. Psychiatric: Mood and Affect: Mood normal. Behavior: Behavior normal. Thought Content: Thought content normal. Judgment: Judgment normal. ASSESSMENT AND PLAN: Follow up in about 2 months (around 10/18/2024) for Recheck. Problem List Items Addressed This Visit GERD (gastroesophageal reflux disease) Recommendations: freq small meals, nothing to eat or drink at least 2 hours prior to bed, limit caffeine, alcohol, as well as spicy foods Meds to limit or avoid if possible: NSAIDS Elevate HOB if possible Vitamin D deficiency Takes OTC vit d supplement RESOLVED: Obesity (BMI 30-39.9) Primary hypertension (CMS/HCC) - Primary Please check blood pressure daily and record DASH diet Limit caffeine Take medication as directed Contact office if chest pain, pressure, dizziness, shortness of breath, swelling legs Recommend slow position changes Bring BP cuff to next appt in 8 weeks Pelvic pain Had a pelvic US: 5mm leiomyoma Minimal to no pelvic pain Class 1 obesity due to excess calories without serious comorbidity with body mass index (BMI) of 30.0 to 30.9 in adult Discussed with patient their BMI (actual, verses recommended). We have also discussed lifestyle modifications: attempts to perform physical activity as chronic conditions allow, also to monitor dietary intake: increasing protein/fruits/veggies and lowering carb intake (unless contraindicated). Limit sodas, juices, and sugary drinks. Pt is still having shoulder pain mainly the right. She is doing exercises. Pt is also taking magnesium as well Associated Problem(s): GERD (gastroesophageal reflux disease) Recommendations: freq small meals, nothing to eat or drink at least 2 hours prior to bed, limit caffeine, alcohol, as well as spicy foods Meds to limit or avoid if possible: NSAIDS Elevate HOB if possible Associated Problem(s): Primary hypertension (CMS/HCC) Please check blood pressure daily and record DASH diet Limit caffeine Take medication as directed Contact office if chest pain, pressure, dizziness, shortness of breath, swelling legs Recommend slow position changes Bring BP cuff to next appt in 8 weeks documented in this encounter [facility] 08-18-2024 Instructions Pamela Moore NP - 08/18/2024 9:40 AM EST Check blood pressure twice a day and record it When you come back in 8 weeks bring readings AND BP machines with you so we can verify if they are accurate documented in this encounter [facility] 07-07-2024 History of Presen t illness Narrative [...] Health trax vaginitis, suspect BV,will await culture [facility] [id number] Exp: 09/21/24 [id number] Images from the original note were not [...] Date BACK SURGERY 1982 CARPAL TUNNEL RELEASE 2012 SECTION, LOW TRANSVERSE 1970, 1973 KNEE SURGERY [...] nursing note reviewed. Exam conducted with a shelf stocker present. Constitutional: General: She is not in [...] List Items Addressed This Visit Hypothyroidism (acquired) ([facility]) Relevant Medications levothyroxine (Synthroid, Levoxyl) 50 MCG tablet Encounter for well woman exam with routine gynecological exam - Primary BSE info Diet, exercise Fu as per PAP indication Relevant Orders THIN PREP TIS PAP AND HR HPV DNA Vaginal discharge Health trax vaginitis, suspect BV,will await culture [facility] [id number] Exp: 09/21/24 [id number] Relevant Orders VAGINITIS (HTRX) Pelvic pain D/t limitation of bimanual exam and pt pain bilat adenexal region Will order pelvic US No family hx of cervical/ovarian/uterine cancer Relevant Orders US pelvis transvaginal documented in this encounter [facility] 11-05-2023 History of Presen t illness Narrative Associated Problem(s): Chronic left shoulder pain Will refer to Dr De La Fuente in [place] per pt request Associated Problem(s): Encounter for [...] Date BACK SURGERY 1982 CARPAL TUNNEL RELEASE 2012 SECTION, LOW TRANSVERSE 1969, 1973 KNEE SURGERY [...] refer to Dr De La Fuente in [place] per pt request Relevant Orders Ambulatory referral to Orthopaedic Surgery documented in this encounter [facility] Evaluation note Diagnosis Gastroesophageal reflux disease, unspecified whether esophagitis present- Primary Age related osteoporosis, unspecified pathological fracture presence (CMS/HCC) Vitamin D deficiency Pre-diabetes Other abnormal glucose Hypothyroidism (acquired) (CMS/HCC) Unspecified hypothyroidism Mixed hyperlipidemia (CMS/HCC) Mixed hyperlipidemia Encounter for screening mammogram for malignant neoplasm of breast BMI 30.0-30.9,adult Chronic left shoulder pain Pain in joint, shoulder region [facility] Diagnosis Onset Date Resolution Status Primary osteoarthritis of left shoulder acute [facility] Work Phone: Evaluation note* Diagnosis Onset Date Resolution Status Primary osteoarthritis of left shoulder acute Primary osteoarthritis, right shoulder acute Rotator cuff syndrome of right shoulder acute [facility] Work Phone: Evaluation note* Diagnosis Hyperlipidemia, unspecified (CMS/HCC) documented in this encounter [facility] Healthcare[facility] note* Diagnosis Gastroesophageal reflux disease, unspecified whether esophagitis present- Primary Age related osteoporosis, unspecified pathological fracture presence ([facility]) Vitamin D deficiency Pre-diabetes Other abnormal glucose Hypothyroidism (acquired) ([facility]) Unspecified hypothyroidism Mixed hyperlipidemia ([facility]) Mixed hyperlipidemia Encounter for screening [...] Age related osteoporosis, unspecified pathological fracture presence ([facility]) Hyperlipidemia, unspecified ([facility]) Pre-diabetes Other abnormal glucose Obesity (BMI 30-39.9) Hypothyroidism (acquired) ([facility]) Unspecified hypothyroidism Chronic osteoarthritis Osteoarthrosis, unspecified whether generalized or localized, unspecified site Elevated blood pressure reading Elevated blood pressure reading without diagnosis of hypertension Primary hypertension ([facility])- Primary Unspecified essential hypertension Obesity (BMI 30-39.9) LORI (generalized anxiety disorder) ([facility]) Generalized anxiety disorder Primary hypertension ([facility])- Primary Unspecified essential hypertension Gastroesophageal reflux disease, unspecified whether esophagitis present Vitamin D deficiency Pre-diabetes Other abnormal glucose Hypothyroidism (acquired) ([facility]) Unspecified hypothyroidism Mixed hyperlipidemia ([facility]) Mixed hyperlipidemia Encounter for well woman exam with routine gynecological exam- Primary Hypothyroidism (acquired) ([facility]) Unspecified hypothyroidism Vaginal discharge Leukorrhea, not specified as infective Pelvic pain documented in this encounter [facility] HealthcareEvaluation note* Diagnosis Gastroesophageal reflux disease, unspecified whether esophagitis present- Primary Age related osteoporosis, unspecified pathological fracture presence ([facility]) Vitamin D deficiency Pre-diabetes Other abnormal glucose Hypothyroidism (acquired) ([facility]) Unspecified hypothyroidism Mixed hyperlipidemia ([facility]) Mixed hyperlipidemia Encounter for screening [...] Age related osteoporosis, unspecified pathological fracture presence ([facility]) Hyperlipidemia, unspecified ([facility]) Pre-diabetes Other abnormal glucose Obesity (BMI 30-39.9) Hypothyroidism (acquired) ([facility]) Unspecified hypothyroidism Chronic osteoarthritis Osteoarthrosis, unspecified whether generalized or localized, unspecified site Elevated blood pressure reading Elevated blood pressure reading without diagnosis of hypertension Primary hypertension ([facility])- Primary Unspecified essential hypertension Obesity (BMI 30-39.9) LORI (generalized anxiety disorder) ([facility]) Generalized anxiety disorder Primary hypertension ([facility])- Primary Unspecified essential hypertension Gastroesophageal reflux disease, unspecified whether esophagitis present Vitamin D deficiency Pre-diabetes Other abnormal glucose Hypothyroidism (acquired) ([facility]) Unspecified hypothyroidism Mixed hyperlipidemia ([facility]) Mixed hyperlipidemia Encounter for well woman exam with routine gynecological exam- Primary Hypothyroidism (acquired) ([facility]) Unspecified hypothyroidism Vaginal discharge Leukorrhea, not specified as infective Pelvic pain Hypothyroidism (acquired) ([facility])- Primary Unspecified hypothyroidism documented in this encounter [facility] HealthcareEvaluation note* Diagnosis Gastroesophageal reflux disease, unspecified whether esophagitis present- Primary Age related osteoporosis, unspecified pathological fracture presence ([facility]) Vitamin D deficiency Pre-diabetes Other abnormal glucose Hypothyroidism (acquired) ([facility]) Unspecified hypothyroidism Mixed hyperlipidemia ([facility]) Mixed hyperlipidemia Encounter for screening [...] Age related osteoporosis, unspecified pathological fracture presence ([facility]) Hyperlipidemia, unspecified ([facility]) Pre-diabetes Other abnormal glucose Obesity (BMI 30-39.9) Hypothyroidism (acquired) ([facility]) Unspecified hypothyroidism Chronic osteoarthritis Osteoarthrosis, unspecified whether generalized or localized, unspecified site Elevated blood pressure reading Elevated blood pressure reading without diagnosis of hypertension Primary hypertension ([facility])- Primary Unspecified essential hypertension Obesity (BMI 30-39.9) LORI (generalized anxiety disorder) ([facility]) Generalized anxiety disorder Primary hypertension ([facility])- Primary Unspecified essential hypertension Gastroesophageal reflux disease, unspecified whether esophagitis present Vitamin D deficiency Pre-diabetes Other abnormal glucose Hypothyroidism (acquired) ([facility]) Unspecified hypothyroidism Mixed hyperlipidemia ([facility]) Mixed hyperlipidemia Encounter for well woman exam with routine gynecological exam- Primary Hypothyroidism (acquired) ([facility]) Unspecified hypothyroidism Vaginal discharge Leukorrhea, not specified as infective Pelvic pain Primary hypertension ([facility])- Primary Unspecified essential hypertension Pelvic pain Gastroesophageal reflux disease, unspecified whether esophagitis present Obesity (BMI 30-39.9) Vitamin D deficiency Class 1 obesity due to excess calories without serious comorbidity with body mass index (BMI) of 30.0 to 30.9 in adult [facility] Consultation (Routine) - Pending Review Specialty Diagnoses / Procedures Referred By Lisa morgan Referred To Contact Orthopaedic Surgery Diagnoses Chronic left shoulder pain Pamela Moore NP [address] [place] [address] Ziggy De La Fuente MD [address] [place] [id number] Referral ID Status Reason Start Date Expiration Date Visits Requested Visits Authorized [id number] Pending Review Specialty Services Required 11/05/2023 05/03/[address] 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 Reason for Visit Primary osteoarthrit is of left shoulder Primary osteoarthritis, right shoulder Rotator cuff syndrome of right shoulder Additional Source Comments INFORMATION SOURCE (unrecogn ized section and content) DATE CREATED AUTHOR 01/06/2023 [facility] DATE CREATED AUTHOR AUTHOR'S ORGANIZ ATION 02/28/2023 [facility] DATE CREATED AUTHOR AUTHOR'S ORGANIZ ATION 01/22/2024 [facility] DATE CREATED AUTHOR AUTHOR'S ORGANIZ ATION 04/07/2024 [facility] DATE CREATED AUTHOR AUTHOR'S ORGANIZ ATION 05/01/2024 [facility] DATE CREATED AUTHOR AUTHOR'S ORGANIZ ATION 07/09/2024 [facility] EPIC Care Teams (unrecognized sec [...] Provider Active St art: April 29, 2024 Recruit Instructor Relationship Specialty Start Date End Date Jorge Goncalves MD [address] [place] [phone] PCP - General Family Medicine 11/05/23 Recruit Instructor Relationship Specialty Start Date End Date Jorge Goncalves MD [address] [place] [address] PCP - General Family Medicine 11/05/23 Team [...] Provider Active St art: December 11, 2023 Recruit Instructor Relationship Specialty Start Date End Date Jorge Goncalves MD [address] [place] [phone] PCP - General Family Medicine 11/05/23 Pamela Moore NP [address] [place] [phone] PCP - Ankit MURRY 04/22/24 Recruit Instructor Relationship Specialty Start Date End Date Jorge Goncalves MD [address] [place] [phone] PCP - General Family Medicine 11/05/23 Pamela Moore NP [address] [place] [phone] PCP Opal Pham MA 04/22/24 Recruit Instructor Relationship Specialty Start Date End Date Jorge Goncalves MD [address] [place] [phone] PCP - General Family Medicine 11/05/23 Pamela Moore NP [address] [place] [place] [phone] PCP Opal Pham MA 04/22/24 Recruit Instructor Relationship Specialty Start Date End Date Pamela Moore NP [address] [place] [phone] PCP - Ankit MURRY 04/22/24 Unallocated, [facility] [address] [place] [address] PCP - General Family Medicine 07/07/24 Recruit Instructor Relationship Specialty Start Date End Date Pamela Moore NP [address] [place] [phone] PCP - Ankit MURRY 04/22/24 Unallocated, [facility] [address] [place] [address] PCP - General Family Medicine 07/07/24 Recruit Instructor Relationship Specialty Start Date End Date Pamela Moore NP [address] [place] [phone] PCP - Ankit MURRY 04/22/24 Jorge Goncalves MD [address] [place] [phone] PCP - General Family Medicine 07/22/24 Recruit Instructor Relationship Specialty Start Date End Date Pamela Moore NP [address] [place] [phone] PCP - Ankit MURRY 04/22/24 Jorge Goncalves MD [address] [place] [phone] PCP - General Family Medicine 07/22/24 Goals (unrecognized section and content) Goals may be documented in a n alternate sectionGoals may be documented in an alternate sectionGoals may be documented in an alternate sectionGoals may be documented in an alternate section Reason for Visit (unrecogniz ed section and content) Reason Onset Date Comments Med Refill 06/24/2024 Reason Comments Hypertension FOR RECORDS PERTAINING TO PATIENTS WHO ARE [...] BE BASED ON THE PRIMARY CLINICAL RECORDS. [facility]. provides no warranty or guarantee of the accuracy or completeness of information in this document.
[2024-08-18 11:18] LABS: Bilirubin Urine NEGATIVE (NEGATIVE); Blood Urine NEGATIVE (NEGATIVE); Clarity Urine CLEAR (CLEAR); Color Urine LT. YELLOW (YELLOW); Glucose Urine UA NEGATIVE (NEGATIVE); Ketones Urine NEGATIVE (NEGATIVE); Leukocyte Esterase Urine NEGATIVE (NEGATIVE); Nitrite Urine NEGATIVE (NEGATIVE); Protein Urine NEGATIVE (NEG/TRACE); Specific Gravity Urine 1.015 (1.005-1.025); Urobilinogen Urine 0.2 EU/dL (0.2-1.0); pH Urine 7.5 (5.0-9.0)
[2024-08-18 11:21] LABS: Urine Microscopic Indicated NO
[2024-08-18 11:24] LABS: Basophils Absolute Auto 0.1 10^3/uL (0.0-0.1); Basophils Percent Auto 1.4 % (0.2-2.0); Eosinophils Absolute Auto 0.2 10^3/uL (0.0-0.7); Hematocrit 39.2 % (36.0-48.0); Hemoglobin 12.7 g/dL (12.0-16.0); Immature Granulocytes Abs Auto 0.01 10^3/uL (0.00-0.03); Immature Granulocytes Pct Auto 0.1 % (0.0-0.5); Lymphocytes Absolute Auto 2.7 10^3/uL (1.2-3.8); Lymphocytes Percent Auto 34.9 % (20.5-60.0); Mean Corpuscular HGB Conc 32.4 g/dL (29.9-35.2); Mean Corpuscular Hemoglobin 28.2 pg (26.7-34.0); Mean Corpuscular Volume 86.9 fL (81.0-99.0); Mean Platelet Volume 10.5 fL (9.5-13.5); Monocytes Absolute Auto 0.7 10^3/uL (0.3-0.8); Monocytes Percent Auto 9.6 % (1.7-12.0); Neutrophils Absolute Auto 3.9 10^3/uL (1.4-6.5); Platelet Count 316 10^3/uL (150-450); Red Blood Count 4.51 10^6/uL (4.20-5.40); Red Cell Distribution Width 13.2 % (11.0-15.0); White Blood Count 7.7 10^3/uL (4.0-11.0)
[2024-08-18 11:58] LABS: Alanine Aminotransferase 33 U/L (14-59); Albumin Globulin Ratio 1.1; Albumin Level 3.9 g/dL (3.4-5.0); Alkaline Phosphatase 76 U/L (46-116); Anion Gap 13.9; Aspartate Amino Transferase 21 U/L (15-37); BUN Creatinine Ratio 12.8; Bilirubin Total 0.9 mg/dL (0.2-1.0); Calcium 10.2 mg/dL (8.5-10.1); Carbon Dioxide 27.8 mmol/L (21.0-32.0); Chloride 106 mmol/L (98-107); Chol HDL Ratio 2.6; Cholesterol 169 mg/dL (<=200); Estimated GFR (African America >60 (>=60 mL/min/1.73m^2); Estimated GFR (Non-African Ame >60 (>=60 mL/min/1.73m^2); Free T3 2.16 pg/mL (2.18-3.98); Globulin 3.7 g/dL; Glucose 119 mg/dL (74-106); HDL Cholesterol 65 mg/dL (40-60); Potassium 4.7 mmol/L (3.5-5.1); Sodium 143 mmol/L (136-145); Thyroid Stimulating Hormone 5.401 uIU/mL (0.358-3.740); Total Protein 7.6 g/dL (6.4-8.2); Triglycerides 179 mg/dL (<=150); VLDL CHOLESTEROL 35.8 mg/dL
[2024-08-18 13:33] LABS: Free T4 1.15 ng/dL (0.76-1.46)
== END 2024-08-18 10:53 | disposition home or self-care (01) ==
LOC: LAB 10:54
PROVIDERS: PCP Nurse Practitioner; Visit Provider Nurse Practitioner
DX: K21.9 Gastro-esophageal reflux disease without esophagitis (principal); I10 Essential (primary) hypertension; E55.9 Vitamin D deficiency, unspecified; R73.03 Prediabetes; E03.9 Hypothyroidism, unspecified; E78.2 Mixed hyperlipidemia
CPT/HCPCS: 36415; 80053; 80061; 81003; 82306; 84439; 84443; 84481; 85025

== ENCOUNTER 2024-08-30 11:16 | Outpatient (OUT) | payer MEDICARE, SELFPAY ==
[2024-08-30 12:28] LABS: Estimated Average Glucose 128 mg/dL; Glycohemoglobin A1C 6.1 % (4.5-6.2)
== END 2024-08-30 11:17 | disposition home or self-care (01) ==
LOC: LAB 11:18
PROVIDERS: PCP Nurse Practitioner; Visit Provider Nurse Practitioner
DX: R73.9 Hyperglycemia, unspecified (principal)
CPT/HCPCS: 36415; 83036

== ENCOUNTER 2024-10-11 12:56 | Outpatient (OUT) | payer MEDICARE, SELFPAY ==
[2024-10-11 14:11] LABS: Thyroid Stimulating Hormone 4.868 uIU/mL (0.358-3.740)
== END 2024-10-11 12:57 | disposition home or self-care (01) ==
LOC: LAB 12:58
PROVIDERS: PCP Nurse Practitioner; Visit Provider Nurse Practitioner
DX: E03.9 Hypothyroidism, unspecified (principal)
CPT/HCPCS: 36415; 84439; 84443

== ENCOUNTER 2024-12-24 12:32 | Outpatient (OUT) | payer MEDICARE, SELFPAY ==
[2024-12-24 14:28] LABS: Thyroid Stimulating Hormone 2.172 uIU/mL (0.358-3.740)
[2024-12-24 14:45] LABS: Free T4 1.23 ng/dL (0.76-1.46)
== END 2024-12-24 12:33 | disposition home or self-care (01) ==
LOC: LAB 12:34
PROVIDERS: PCP Nurse Practitioner; Visit Provider Nurse Practitioner
DX: E03.9 Hypothyroidism, unspecified (principal)
CPT/HCPCS: 36415; 84439; 84443

== ENCOUNTER 2025-01-05 09:22 | Outpatient (OUT) | payer MEDICARE, SELFPAY ==
--- NOTE | 2025-01-05 09:25 | MM_ITS ---
Patient Name: BERNARD PONCE MR#: [id number] : 1945 Exam Date: 01/05/2025 Ordering Doctor: COCO Moore CNP RADIOLOGY REPORT PROCEDURE: MM TOMOSYNTHESIS SCREENING BI COMPARISON: MM TOMOSYNTHESIS SCREENING BI, 01/05/2024. MG MAMM SCREEN 3D DAVID CAD, 01/03/2023. MG MAMM SCREEN 3D DAVID CAD, 09/27/2021. MG MAMM DAVID SCRN W CAD DIG, 04/21/2013. INDICATIONS: Screening Calculator Name NCI Breast Cancer Risk Assessment Tool 5 Year Breast Cancer Risk 1.00% Lifetime Breast Cancer Risk 1.90% Personal Breast Cancer No Personal Ovarian Cancer No Treatments None Family Cancers Aunt-maternal with breast cancer at age 60. LOCATION: [facility] BREAST COMPOSITION: There are scattered areas of fibroglandular density. FINDINGS: DIAGNOSTIC CATEGORY 1--NEGATIVE. RIGHT BREAST: No significant suspicious finding. LEFT BREAST: No significant suspicious finding. RECOMMENDATIONS: ROUTINE MAMMOGRAM AND CLINICAL EVALUATION IN 12 MONTHS. PLEASE NOTE: A NORMAL MAMMOGRAM DOES NOT EXCLUDE THE POSSIBILITY OF BREAST CANCER. A CLINICALLY SUSPICIOUS PALPABLE LUMP SHOULD BE BIOPSIED. Dictated by: Jaime Lazaro DO on 01/05/2025 at 14:12 Approved by: Jaime Lazaro DO on 01/05/2025 at 14:14
--- OUTSIDE RECORDS SUMMARY | 2025-01-05 09:44 | XMS_ITS | CCD ---
Author Organization [facility] Care Team Providers Care Train Reservation Clerk Name Role Phone AICHHOLZ, SOIL TECHNICIAN PAMELA Admitting Unavailable AICHHOLZ, SOIL TECHNICIAN PAMELA Attending Unavailable AICHHOLZ, SOIL TECHNICIAN PAMELA Primary Care Unavailable AICHHOLZ, SOIL TECHNICIAN PAMELA Consulting Unavailable AICHHOLZ, SOIL TECHNICIAN PAMELA Admitting Unavailable AICHHOLZ, SOIL TECHNICIAN PAMELA Attending Unavailable AICHHOLZ, SOIL TECHNICIAN PAMELA Primary Care Unavailable AICHHOLZ, SOIL TECHNICIAN PAMELA Consulting Unavailable AICHHOLZ, SOIL TECHNICIAN PAMELA Admitting Unavailable AICHHOLZ, SOIL TECHNICIAN PAMELA Attending Unavailable AICHHOLZ, SOIL TECHNICIAN PAMELA Primary Care Unavailable AICHHOLZ, SOIL TECHNICIAN PAMELA Consulting Unavailable AICHHOLZ, SOIL TECHNICIAN PAMELA Admitting Unavailable AICHHOLZ, SOIL TECHNICIAN PAMELA Attending Unavailable AICHHOLZ, SOIL TECHNICIAN PAMELA Primary Care Unavailable AICHHOLZ, SOIL TECHNICIAN PAMELA Consulting Unavailable AICHHOLZ, SOIL TECHNICIAN PAMELA Admitting Unavailable AICHHOLZ, SOIL TECHNICIAN PAMELA Attending Unavailable AICHHOLZ, SOIL TECHNICIAN PAMELA Primary Care Unavailable AICHHOLZ, SOIL TECHNICIAN PAMELA Consulting Unavailable AICHHOLZ, SOIL TECHNICIAN PAMELA Admitting Unavailable AICHHOLZ, SOIL TECHNICIAN PAMELA Attending Unavailable AICHHOLZ, SOIL TECHNICIAN PAMELA Primary Care Unavailable AICHHOLZ, SOIL TECHNICIAN PAMELA Consulting Unavailable AICHHOLZ, SOIL TECHNICIAN PAMELA Admitting Unavailable AICHHOLZ, SOIL TECHNICIAN PAMELA Attending Unavailable AICHHOLZ, SOIL TECHNICIAN PAMELA Primary Care Unavailable AICHHOLZ, SOIL TECHNICIAN PAMELA Consulting Unavailable JORGE GONCALVES Primary Care Unavailable Tab Ibarra Admitting Unavail Tab Jauregui Attending Unavail Jorge Quijano MD Primary Care Provider MD Jorge Goncalves Primary Care Provider DO Braxton Escalante Attending Provider PAMELA MOORE Primary Care Unavailable BRAXTON ESCALANTE Referring Unavailable BRAXTON ESCALANTE Referring Unavailable PAMELA MOORE Primary Care Unavailable LONG BOLIVAR Attending Unavailabl e PAMELA MOORE Referring Unavailable PAMELA MOORE Primary Care Unavailable MD Jorge Goncalves Primary Care Provider DO Braxton Escalante Attending Provider Braxton Escalante Attending Unavailable Jorge Goncalves Primary Care Unavailable Braxton Escalante Admitting Unavailable Braxton Escalante Attending Unavailable Jorge Goncalves Primary Care Unavailable Braxton Escalante Admitting Unavailable Aichholz BILLBOARD MECHANIC, Pamela Unavailable Unallocated , [facility] Provider Primary Care Provi oksana Jorge Goncalves MD Primary Care Provider [phone] AICHHOLZ, PAMELA Attending Unavailable AICHHOLZ, PAMELA Attending Unavailable AICHHOLZ, PAMELA Referring Unavailable AICHHOLZ, PAMELA Attending Unavailable AICHHOLZ, PAMELA Attending Unavailable AICHHOLZ, PAMELA Attending Unavailable AICHHOLZ, PAMELA Attending Unavailable AICHHOLZ, PAMELA Attending Unavailable AICHHOLZ, PAMELA Attending Unavailable Aichholz Pamela SIMON Primary Care Provider Allergies Allergy Classification Reported Allergen(s) Allergy Type Date of Onset Reaction(s) Facility (3 sources) Ampicillin; Translations: [AMPICILLIN] Drug Allergy 02-10-2012 [facility] Repository (20 sources) Ampicillin Drug Allergy 02-10-2012 [facility] (1 source) Ampicillin Drug Allergy 10-04-2021 [facility] Repository Medications Current Medications Medication Drug Class(es) Dates Sig (Normalized) Sig (Original) 8 hr acetaminophen 650 mg extended release oral tablet (1 source) acetaminophen (TYLENOL ARTHRITIS) 650 mg 8 hr tablet Active acetaminophen 300 mg / codeine phosphate 30 mg oral tablet (1 source) Opioid Agonist Start: 02-28-2023 take 1 tablet by mouth every six hours as needed for pain acetaminophen-codei ne (TYLENOL #3) 300-30 mg per tablet TAKE 1 TABLET BY MOUTH EVERY 6 HOURS NEEDED for moderate pain for up to 3 days 02/28/2023 Active [id number] actuat albuterol 0.09 mg/actuat metered dose inhaler (20 sources) beta2-Adrenergic Agonist Start: 04-29-2024 Albuterol Sulfate Active INHALATION April 29, 2024 12:00am Start: 03-27-2024 End: 09-24-2024 take 2 puff(s) by inhalation every six hours for wheezing albuterol HFA 90 mcg/act inhaler Indications: Acute bronchitis, unspecified Inhale 2 puffs every 6 (six) hours if needed for shortness of breath or wheezing 18 g 1 08/25/2024 Active albuterol (PROVE NTIL HFA;VENTOLIN HFA) 90 mcg/actuation inhaler Inhale 2 puffs. Active take 2 puff(s) by in halation every four hours for wheezing albuterol HFA 90 mcg/act inhaler Inhale 2 puffs every 4 (four) hours if needed for wheezing or shortness of breath 0 Active alendronic acid 70 mg oral tablet (20 sources) Bisphosphonate Start: 04-29-2024 Alendronate Ac tive MG PO April 29, 2024 12:00am Start: 04-14-2024 End: 03-28-2025 alendronate (Fosamax) 70 MG tablet Indications: Age related osteoporosis, unspecified pathological fracture presence (CMS/HCC) Take 1 tablet (70 mg) by mouth every 7 (seven) days 12 tablet 1 01/03/2025 03/28/2025 Active Start: 03-14-2021 take 1 tablet by dacia th every week alendronate (FOSAMAX) 70 mg tablet Take 1 tablet (70 mg total) by mouth once a week. 03/14/2021 Active alendronate (Fos amax) 70 MG tablet Take 70 mg by mouth every 7 (seven) days. 0 Active atorvastatin 20 mg oral tablet (20 sources) HMG-CoA Reductase Inhibitor Start: 04-29-2024 Atorvastatin Active MG PO April 29, 2024 12:00am Start: 04-14-2024 End: 04-03-2025 take 1 tablet by mouth at bedtime atorvastatin (Lipitor) 20 MG tablet Indications: Hyperlipidemia, unspecified (CMS/HCC) Take 1 tablet (20 mg) by mouth at bedtime 90 tablet 1 01/03/2025 04/03/2025 Active Start: 02-28-2022 take 1 tablet by dacia th in the morning atorvastatin (LIPITOR) 20 mg tablet Take 1 tablet (20 mg total) by mouth in the morning. 02/28/2022 Active benzonatate 100 mg oral capsule (20 sources) Non-narcotic Antitussive take 1 capsule by mouth three times daily as needed benzonatate (Tessalon) 100 MG capsule Take 100 mg by mouth 3 (three) times a day as needed. Active cetirizine hydrochloride 10 mg oral tablet (1 source) Histamine-1 Receptor Antagonist Start: take 1 tablet by mouth in the morning cetirizine (ZyrTEC) 10 mg tablet Take 1 tablet (10 mg total) by mouth in the morning. 05/02/2021 Active chlorhexidine gluconate 1.2 mg/ml mouthwash (2 sources) Start: End: take 15 mL by mouth twice daily chlorhexidine (Peridex) 0.12 % solution rinse 15ml BY MOUTH TWICE DAILY 10/29/2023 07/07/2024 Discontinued (Therapy completed) cholecalciferol 0.05 mg oral tablet (20 sources) Vitamin D Start: End: cholecalciferol 50 MCG (2000 UT) tablet Indications: Vitamin D Deficiency 2,000 international units once a day 30 tablet 5 11/17/2023 08/18/2024 Discontinued (Therapy completed) Start: 03-14-2021 take 1 tablet by dacia th in the morning cholecalciferol, vitamin D3, 2,000 units tablet Take 1 tablet (2,000 Units total) by mouth in the morning. 03/14/2021 Active End: 08-18-2024 take 1 capsule by mouth once daily Cholecalciferol (Vitamin D3) 50 MCG capsule Take 50 mcg by mouth Daily Pt is taking OTC () 08/18/2024 Discontinued (Therapy completed) cholecalciferol (Vitamin D-3) 125 MCG (5000 UT) capsule Vitamin D3 0 Active docosahexaenoic acid 120 mg / eicosapentaenoic acid 180 mg oral capsule (20 sources) take 1 capsule by mo uth once daily omega-3 (fish oil) 1000 MG capsule Take 1 capsule by mouth 1 (one) time each day at the same time. Active docosahexaenoic acid-epa 120-180 mg capsule Take 1 capsule by mouth. Active fluticasone propionate 0.05 mg/actuat metered dose nasal spray (20 sources) Corticosteroid Start: 08-25-2024 End: 09-24-2024 take 2 spray(s) nasal route once daily fluticasone (Flonase) 50 MCG/ACT nasal spray Indications: Allergic rhinitis, unspecified seasonality, unspecified trigger Administer 2 sprays into each nostril Daily 16 g 3 08/25/2024 Active Start: 05-02-2021 take 2 spray(s) nasa l route once daily fluticasone propionate (FLONASE) 50 mcg/actuation nasal spray Instill 2 sprays IN EACH NOSTRIL DAILY 05/02/2021 Active Start: 05-10-2019 End: 08-25-2024 take 1 spray(s) nasal route in the morning fluticasone (Flonase) 50 MCG/ACT nasal spray Administer 1 spray into each nostril in the morning. 05/10/2019 08/25/2024 Discontinued (Reorder) furosemide 20 mg oral tablet (17 sources) Loop Diuretic End: 08-18-2024 furosemide (Lasix) 20 MG tablet Take 20 mg by mouth if needed (prn). 08/18/2024 Discontinued (Therapy completed) levothyroxine sodium 0.05 mg oral tablet (20 sources) l-Thyroxine Start: 12-13-2024 End: 01-12-2025 take 1 tablet by mouth before mealtime levothyroxine (Synthroid, Levoxyl) 50 MCG tablet Indications: Hypothyroidism (acquired) (CMS/HCC) Take 1 tablet (50 mcg) by mouth in the morning. Take before meals. 30 tablet 1 12/13/2024 01/12/2025 Active Start: 10-13-2024 End: 2024 take 1 tablet by mouth before mealtime levothyroxine (Synthroid, Levoxyl) 50 MCG tablet Indications: Hypothyroidism (acquired) (CMS/HCC) Take 1 tablet (50 mcg) by mouth in the morning. Take before meals. 30 tablet 1 10/13/2024 2024 Active Start: 07-13-2024 End: 10-13-2024 take 1 tablet by mouth before mealtime levothyroxine (Synthroid) 25 MCG tablet Indications: Hypothyroidism (acquired) (CMS/HCC) Take 1 tablet (25 mcg) by mouth in the morning. Take before meals. 90 tablet 07/13/2024 10/13/2024 Discontinued (Ineffective) Start: 02-22-2021 End: 10-05-2024 take 1 tablet by mouth before mealtime levothyroxine (Synthroid, Levoxyl) 50 MCG tablet Indications: Hypothyroidism (acquired) (CMS/HCC) Take 1 tablet (50 mcg) by mouth in the morning. Take before meals. 90 tablet 1 07/07/2024 07/13/2024 Discontinued (Therapy completed) loratadine 10 mg disintegrating oral tablet (20 sources) take 1 tablet by dacia th once daily loratadine (Claritin Reditabs) 10 MG disintegrating tablet Take 10 mg by mouth Daily Pt taking OTC allergy relief 24hr 1 daily Active take 1 tablet by mouth in the mo rning loratadine (CLARITIN) 10 mg tablet Take 1 tablet (10 mg total) by mouth in the morning. Active magnesium sulfate 0.0277 meq/ml / potassium sulfate 0.0374 meq/ml / sodium sulfate 0.257 meq/ml oral solution (1 source) Start: 05-10-2021 sodium,potassium,mag sulfates (SUPREP BOWEL PREP KIT) 17.5-3.13-1.6 gram recon soln Indications: Colon cancer screening 177 ml,actual weight, 2 times daily, Oral 354 mL 05/10/2021 Active meclizine hydrochloride 25 mg oral tablet (10 sources) Antiemetic End: 07-07-2024 take 1 tablet by mouth four times daily as needed for dizziness meclizine (Antivert) 25 MG tablet Take 1 tablet by mouth 4 (four) times a day as needed for dizziness 07/07/2024 Discontinued (Therapy completed) Multiple Vitamin (MULTIVITAMIN ADULT PO) (20 sources) Multiple Vitamin (MULTIVITAMIN ADULT PO) Multivitamin Active Multiple Vitamin (MULTIVITAMIN ADULT PO) Multivitamin 0 Active MULTIVITAMIN ORAL (1 source) MULTIVITAMIN ORA L Take by mouth. Active naproxen sodium 220 mg oral tablet (1 source) Nonsteroidal Anti-inflammatory Drug naproxen sodium ( ALEVE) 220 mg tablet Take 220 mg by mouth. Active papaya allergenic extract (20 sources) Non-Standardized Food Allergenic Extract End: 10-13-2024 Papaya 100 MG tablet Papaya 10/13/2024 Discontinued (Therapy completed) Papaya 100 MG ta blet Papaya Active Papaya 100 MG ta blet Papaya 0 Active simvastatin 40 mg oral tablet (1 source) HMG-CoA Reductase Inhibitor Start: 03-28-2021 take 1 tablet by mouth once daily simvastatin (ZOCOR) 40 mg tablet Take 40 mg by mouth nightly. 03/28/2021 Active Problems Active Problems Problem Classification Problem Date Documented Date Episodic/Chronic Acute bronchitis (1 source) Acute bronchitis; Translations: [Acute bronchitis, unspecified] 08-25-2024 Episodic Anxiety disorders (20 sources) Generalized anxiety disorder; Translations: [Generalized anxiety disorder] Onset: 05-10-2024 05-10-2024 Chronic Blindness and vision defects (6 sources) Presbyopia; Translations: [Myopia, bilateral] Onset: 04-01-2024 04-01-2024 Episodic Cataract (2 sources) Age-related nuclear cataract, bilateral; Translations: [Bilateral age-related nuclear cataracts] Onset: 04-01-2024 04-01-2024 Chronic Disorders of lipid metabolism (20 sources) Hyperlipidemia, unspecified; Translations: [Hyperlipidemia] Onset: 05-08-2022 Chronic Diverticulosis and diverticulitis (20 sources) Diverticulum of large intestine without hemorrhage; Translations: [Diverticulosis of large intestine without perforation or abscess without bleeding] Onset: 11-05-2023 11-05-2023 Chronic Esophageal disorders (20 sources) Laryngopharyngeal reflux; Translations: [Gastro-esophageal reflux disease without esophagitis] Onset: 01-31-2023 01-31-2023 Chronic Essential hypertension (20 sources) Essential hypertension; Translations: [Essential (primary) hypertension] Onset: 05-10-2024 05-10-2024 Chronic Nutritional deficiencies (20 sources) Vitamin D deficiency, unspecified; Translations: [Vitamin D deficiency] Onset: 11-13-2022 11-05-2023 Chronic Osteoarthritis (20 sources) Arthritis of right knee; Translations: [Unilateral primary osteoarthritis, right knee] Onset: 01-31-2023 01-31-2023 Chronic Osteoporosis (20 sources) Osteoporosis; Translations: [Age-related osteoporosis without current [...] Episodic Other ear and sense organ disorders (20 sources) Chronic non-infective otitis externa; Translations: [Other otitis externa, bilateral] Onset: 01-31-2023 01-31-2023 Chronic Other ear and sense organ disorders (20 sources) Hearing loss; Translations: [Unspecified hearing loss, unspecified ear] Onset: 01-31-2023 01-31-2023 Chronic Other ear and sense organ disorders (20 sources) Sensorineural hearing loss, bilateral; Translations: [Sensorineural [...] Chronic Other nutritional; endocrine; and metabolic disorders (17 sources) Obesity caused by energy imbalance; Translations: [Class 1 obesity due to excess calories without serious comorbidity with body mass index (BMI) of 30.0 to 30.9 in adult] Onset: 08-18-2024 08-18-2024 Chronic Other upper respiratory disease (20 sources) Chronic laryngitis; Translations: [Chronic laryngitis] Onset: 01-31-2023 01-31-2023 Chronic Other upper respiratory disease (20 sources) Allergic rhinitis; Translations: [Allergic rhinitis, unspecified] Onset: 11-05-2023 4 Chronic Spondylosis; intervertebral disc disorders; other back problems (20 sources) Degeneration of cervical intervertebral disc; Translations: [Other cervical disc degeneration, unspecified cervical region] Onset: 11-05-2023 11-05-2023 Chronic Thyroid disorders (20 sources) Hypothyroidism, unspecified; Translations: [Acquired hypothyroidism] Onset: 12-16-2022 Chronic Unclassified (1 source) Eye Exam Onset: 04-01-2024 Past or Other Problems Problem Classification Problem Date Documented Da te Episodic/Chronic Abdominal pain (20 sources) Generalized abdominal pain; Translations: [Generalized abdominal pain] Onset: 03-08-2024 Resolved: 03-08-2024 03-08-2024 Episodic Diabetes mellitus without complication (20 sources) Prediabetes; Translations: [Prediabetes] Onset: 11-13-2022 11-05-2023 Episodic Immunizations and screening for infectious disease (1 source) Encounter for screening for other viral diseases; Translations: [ENC SCREENING FOR OTH VIRAL DZ] Onset: 05-09-2022 Episodic Mood disorders (20 sources) Mood disorders Onset: 04-14-2024 04-14-2024 Other circulatory disease (20 sources) Elevated blood pressure; Translations: [Elevated blood-pressure reading, without diagnosis of hypertension] Onset: 04-14-2024 Resolved: 05-10-2024 05-10-2024 Episodic Other connective tissue disease (20 sources) Triggering of digit; Translations: [Trigger finger, right ring finger] Onset: 11-05-2023 11-05-2023 Episodic Other connective tissue disease (20 sources) Right rotator cuff syndrome; Translations: [Unspecified rotator cuff tear or rupture of right shoulder, not specified as traumatic] Onset: 05-10-2024 05-10-2024 Episodic Other eye disorders (1 source) Disorder of lacrimal gland; Translations: [Dry eye syndrome of bilateral lacrimal glands] 04-01-2024 Episodic Other female genital disorders (19 sources) Vaginal discharge; Translations: [Other specified noninflammatory disorders of vagina] Onset: 07-07-2024 07-07-2024 Episodic Other gastrointestinal disorders (20 sources) Constipation; Translations: [Other constipation] Onset: 03-08-2024 03-08-2024 Episodic Other gastrointestinal disorders (20 sources) Abdominal bloating; Translations: [Abdominal distension (gaseous)] Onset: 03-08-2024 Resolved: 03-08-2024 03-08-2024 Episodic Other lower respiratory disease (20 sources) Cough; Translations: [Cough in adult] Onset: 11-05-2023 11-05-2023 Episodic Other non-traumatic joint disorders (20 sources) Chronic pain of left upper limb; Translations: [Pain in left shoulder] Onset: 11-05-2023 11-05-2023 Episodic Other non-traumatic joint disorders (5 sources) Pain in left shoulder; Translations: [Left shoulder pain] Onset: 12-11-2023 12-08-2023 Episodic Other nutritional; endocrine; and metabolic disorders (20 sources) Body mass index 30+ - obesity; Translations: [Body mass index (BMI) 30.0-30.9, adult] Onset: 11-05-2023 Resolved: 08-18-2024 11-05-2023 Chronic Other screening for suspected conditions (not mental disorders or infectious disease) (20 sources) Other specified abnormal findings of blood chemistry; Translations: [Other abnormal blood chemistry] Onset: 02-13-2022 Episodic Otitis media and related conditions (20 sources) Dysfunction of left eustachian tube; Translations: [Unspecified Eustachian tube disorder, left ear] Onset: 01-31-2023 01-31-2023 Episodic Residual codes; unclassified (20 sources) Insomnia; Translations: [Insomnia, unspecified] Onset: 11-05-2023 11-05-2023 Episodic Results Test Name Value Interpretation Reference Range Facility ALL THYROID STIM HORMONEon 0 12-24-2024 TSH Qn 2.172 m[IU]/L [facility] ALL THYROID STIM HORMONEon 0 10-11-2024 Interpretation and review of laboratory results Abnormal [facility] TSH Qn 4.868 m[IU]/L High [facility] ALL THYROXINE (T4) FREEon Free T4 [Mass/Vol] 1 ng/dL 0.76 - 1. 46 ng/dL [facility] No Panel Informationon 10-11 [facility] MLR HEMOGLOBIN A1Con 024 Glucose [Mass/Vol] 128 mg/dL [facility] HbA1c (Bld) [Mass fraction] 6.1 % 4.5 - 6.2 % [facility] Comment on above: ADA RECOMMENDED LIMI T 4.0 - 6.0 ADA THERAPEUTIC TARGET < 7.0 ACTION SUGGESTED > 7.0 [facility] UA (CLEAN/CATCH) MICROSC OPIC IF INDICATEon 08-18-2024 [facility]IN URINE Negative [facility]GATIVE [facility] BLOOD URINE Negative NEGATIVE [facility] Clarity (U) CLEAR CLEAR [facility] Color (U) LT. YELLOW YELLOW [facility] GLUCOSE URINE UA Negative NEGATIVE mg/dL [facility] Ketones Ql (U) Negative NEGATIVE mg/dL [facility] Leukocyte esterase Test strip Ql (U) Negative NEGATIVE [facility] NITRITE URINE Negative NEGATIVE [facility] pH (U) 7.5 [pH] 5.0 - 9.0 [facility] PROTEIN URINE Negative NEG/TRACE mg/dL [facility] SPECIFIC GRAVITY URINE 1.015 1.005 - 1.025 [facility] URINE MICROSCOPIC INDICATED NO [facility] UROBILINOGEN URINE 0.2 EU/dL 0.2 - 1.0 EU/dL [facility] IGP,APTIMA HPV,AGE GDLNon AGE GDLN ACOG TESTING Note . [facility] Comment on above: TESTS RESULT FLAG UN ITS REF RANGE LAB Clinician Provided Cytology Information Source.............Cervix;Endocervix No. of containers..01 ThinPrep Vial Age Algo ACOG Karla... Note 01 <21 or >65 or no age provided FLAG LEGEND: L-Low Normal,H-High Normal,LL-Alert Low,HH-Alert High <-Panic Low,>-Panic High,A-Abnormal,AA-Critical Abnormal Performed at: 01 =G [facility] [place] [address] [place] [address] Prerna Arzate MD, PAP IG (IMAGE GUIDED) Note . [facility] Comment on above: TESTS RESULT FLAG UN ITS REF RANGE LAB DIAGNOSIS: 02 NEGATIVE FOR INTRAEPITHELIAL LESION OR MALIGNANCY. Specimen adequacy: 02 Satisfactory for evaluation. Endocervical and/or squamous metaplastic cells (endocervical component) are present. Performed by: 02 Pamela Gómez, Marketing Program Manager ([facility]) . 02 Note: Note 03 The [...] High,A-Abnormal,AA-Critical Abnormal Performed at: 02 KWCYT [facility] [place] [facility] [address] [place] [id number] Martin Machado MD, [facility] [address] [address] Prerna Arzate MD, Performed at: =G - [facility] [address] [id number] Sales Team Member: Prerna Arzate MD, Phone: [phone] Performed at: [facility] [address] [place] [id number] Sales Team Member: Martin Machado MD, Phone: [phone] BROOM-ALONE CERVIX ENDOCERVIX [facility] VAGINITIS [...] min 2V*on XR shoulder RT min 2V* [facility] [address] [place] [address] XRay Report Signed Patient: Bernard oPnce MR#: [id number] 2 : 1945 Acct:[id number] Age/Sex: 78 / F ADM Date: 04/29/24 Loc: [facility] Room: Type: [facility] CLI Attending Dr: Braxton Escalante DO [...] Ra Acosta M.D.04/29/2024 3:49 PM Dictation Location: [place] [address] Transcribed By: [facility] 04/29/24 1549 Dictated By: Ra Acosta DO 04/29/24 1548 Signed By: 04/29/24 1549 Normal [facility] XR shoulder LT min 2V*on XR shoulder LT min 2V* [place] [address] XRay Report Signed Patient: Bernard Ponce MR#: [id number] 2 : 1945 Acct:[id number] Age/Sex: 78 / F ADM Date: 12/11/23 Loc: [facility] Room: Type: [facility] CLI Attending Dr: Braxton Escalante DO [...] Alvaro Carvajal M.D.12/11/2023 12:01 PM Dictation Location: [place] [address] Transcribed By: [facility] 12/11/23 1201 Dictated By: Alvaro Carvajal II, MD 12/11/23 1159 Signed By: 12/11/23 [address] [facility] MG MAMM SCREEN 3D DAVID CADon 01-03-2023 MG MAMM SCREEN 3D DAVID CAD Patient: BERNARD PONCE Exam Date: 01/03/2023 : 1945 Gender:F Ordering : [facility] [employer] Admission #: [id number] Family : Order #: [id number] CLICK HERE TO VIEW EXAM RADIOLOGY REPORT [...] breast cancer at age 62. LOCATION: [facility] BREAST COMPOSITION: Scattered areas fibroglandular density. [...] MD on 01/06/2023 at 09:57 Normal [facility] FREE T3on 12-16-2022 FREE T3 2.70 pg/mlL Normal 2.18-3.98 [facility] Comment on above: Performed By: #### T SH, FT3 #### [facility] [address] [place] [address] Dr. Glenny Sneed FREE T4on 12-16-2022 Free T4 [Mass/Vol] 0.92 ng/dL Normal 0.76-1.46 [facility] Comment on above: Performed By: #### F T4 #### [facility] [address] [place] [address] Dr. Glenny Sneed TSHon 12-16-2022 TSH 3.444 uIU/mL Normal 0.358-3.740 [facility] Comment on above: Performed By: #### T SH, FT3 #### [facility] [address] [place] [address] Dr. Glenny Sneed CBC AUTO DIFFon 11-07-2022 BASO # 0.1 103/ul Normal 0.0-0.1 [facility] Comment on above: Performed By: #### T SH, FT3 #### [facility] [address] [place] [address] Dr. Glenny Sneed Basophils/100 WBC (Bld) 1.2 % Normal 0.2-2.0 [facility] Comment on above: Performed By: #### T SH, FT3 #### [facility] [address] [place] [address] Dr. Glenny Sneed EO # 0.2 103/ul Normal 0.0-0.7 [facility] Comment on above: Performed By: #### T SH, FT3 #### [facility] [address] [place] [address] Dr. Glenny Sneed Eosinophils/100 WBC (Bld) 2.8 % Normal 0.9-7.0 [facility] Comment on above: Performed By: #### T SH, FT3 #### [facility] [address] [place] [address] Dr. Glenny Sneed Erythrocyte distribution width (RBC) [Ratio] 13.5 % Normal 11.0-15.0 [facility] Comment on above: Performed By: #### T SH, FT3 #### [facility] [address] [place] [address] Dr. Glenny Sneed Hematocrit (Bld) [Volume fraction] 40.3 % Normal 36.0-48.0 [facility] Comment on above: Performed By: #### T SH, FT3 #### [facility] [address] [place] [address] Dr. Glenny Sneed Hemoglobin (Bld) [Mass/Vol] 12.9 g/dL Normal 12.0-16.0 [facility] Comment on above: Performed By: #### T SH, FT3 #### [facility] [address] [place] [address] Dr. Glenny Sneed IG # 0.01 10e3/ul Normal 0.00-0.03 [facility] Comment on above: Performed By: #### T SH, FT3 #### [facility] [address] [place] [address] Dr. Glenny Sneed IG % 0.2 % Normal 0.0-0.5 [facility] Comment on above: Performed By: #### T , FT3 #### [facility] [address] [place] [address] Dr. Glenny Sneed LYMPH # 2.5 103/ul Normal 1.2-3.8 [facility] Comment on above: Performed By: #### T SH, FT3 #### [facility] [address] [place] [address] Dr. Glenny Sneed Lymphocytes/100 WBC (Bld) 38.2 % Normal 20.5-60.0 [facility] Comment on above: Performed By: #### T SH, FT3 #### [facility] [address] [place] [address] Dr. Glenny Sneed MANUAL DIFF REQ NO Normal [facility] Comment on above: Performed By: #### T SH, FT3 #### [facility] [address] [place] [address] Dr. Glenny Sneed MCH (RBC) [Entitic mass] 27.2 pg Normal 26.7-34.0 [facility] Comment on above: Performed By: #### T SH, FT3 #### [facility] [address] [place] [address] Dr. Glenny Sneed MCHC (RBC) [Mass/Vol] 32.0 g/dL Normal 29.9-35.2 [facility] Comment on above: Performed By: #### T SH, FT3 #### [facility] [address] [place] [address] Dr. Glenny Sneed MCV (RBC) [Entitic vol] 84.8 fL Normal 81.0-99.0 [facility] Comment on above: Performed By: #### T SH, FT3 #### [facility] [address] [place] [address] Dr. Glenny Sneed MONO # 0.6 103/ul Normal 0.3-0.8 [facility] Comment on above: Performed By: #### T SH, FT3 #### [facility] [address] [place] [address] Dr. Glenny Sneed Monocytes/100 WBC (Bld) 8.5 % Normal 1.7-12.0 [facility] Comment on above: Performed By: #### T SH, FT3 #### [facility] [address] [place] [address] Dr. Glenny Sneed NEUT # 3.2 103/ul Normal 1.4-6.5 [facility] Comment on above: Performed By: #### T SH, FT3 #### [facility] [address] [place] [address] Dr. Glenny Sneed Neutrophils/100 WBC (Bld) 49.1 % Normal 43.0-75.0 [facility] Comment on above: Performed By: #### T SH, FT3 #### [facility] [address] [place] [address] Dr. Glenny Sneed Platelet mean volume (Bld) [Entitic vol] 10.2 fL Normal 9.5-13.5 [facility] Comment on above: Performed By: #### T SH, FT3 #### [facility] [address] [place] [address] Dr. Glenny Sneed PLT 350 103/ul Normal 150-450 [facility] Comment on above: Performed By: #### T SH, FT3 #### [facility] [address] [place] [address] Dr. Glenny Sneed RBC 4.75 106/ul Normal 4.20-5.40 [facility] Comment on above: Performed By: #### T SH, FT3 #### [facility] [address] [place] [address] Dr. Glenny Sneed WBC 6.5 103/ul Normal 4.0-11.0 [facility] Comment on above: Performed By: #### T SH, FT3 #### [facility] [address] [place] [address] Dr. Glenny Sneed FREE T4on 11-07-2022 Free T4 [Mass/Vol] 1.15 ng/dL Normal 0.76-1.46 [facility] Comment on above: Performed By: #### F T4, VITAD #### [facility] [address] [place] [address] Dr. Glenny Sneed GLYCOHEMOGLOBIN A1Con 2022 ADA RECOMMENDATION SEE BELOW Normal [facility] Comment on above: Result Comment: ADA RECOMMENDED LIMIT 4.0 - 6.0 ADA THERAPEUTIC TARGET < 7.0 ACTION SUGGESTED > 7.0 Performed By: #### A 1C #### [facility] [address] [place] [address] Dr. Glenny Sneed Glucose [Mass/Vol] 120 mg/dL Normal [facility] Comment on above: Performed By: #### A 1C #### [facility] [address] [place] [address] Dr. Glenny Sneed HbA1c (Bld) [Mass fraction] 5.8 % Normal 4.5-6.2 [facility] Comment on above: Performed By: #### A 1C #### [facility] [address] [place] [address] Dr. Glenny Sneed LIPID PROFILEon 11-07-2022 CHOL-HDL RATIO NORM SEE BELOW Normal [facility] Comment on above: Result Comment: 3.3 - 4.4 LOW RISK 4.4 - 7.1 AVERAGE RISK 7.1 - 11.0 MODERATE RISK >11.0 HIGH RISK Performed By: #### L IPID, CMP, TSH #### [facility] [address] [address] [address] Glenny Sneed Cholesterol [Mass/Vol] 185 mg/dL Normal <=200 [facility] Comment on above: Performed By: #### L IPID, CMP, TSH #### [facility] [address] [address] [address] Glenny Sneed Cholesterol in HDL [Mass/Vol] 63 mg/dL Critically high 40-60 [facility] Comment on above: Performed By: #### L IPID, CMP, TSH #### [facility] [address] [address] [address] Glenny Sneed Cholesterol in LDL [Mass/Vol] 87.6 mg/dL Normal [facility] Comment on above: Performed By: #### L IPID, CMP, TSH #### [facility] [address] [address] [address] Glenny Sneed Cholesterol.total/Ch olesterol in HDL [Mass ratio] 2.9 {ratio} Normal [facility] Comment on above: Performed By: #### L IPID, CMP, TSH #### [facility] [address] [place] [address] Dr. Glenny Sneed HDL NORMAL > or = 60 mg/dl - LO W CARDIOVASCULAR RISK <40 mg/dl - HIGH CARDIOVASCULAR RISK Normal [facility] Comment on above: Performed By: #### L IPID, CMP, TSH #### [facility] [address] [place] [address] Dr. Glenny Sneed LDL CALC NORMAL SEE BELOW Normal [facility] Comment on above: Result Comment: <100 mg/dl OPTIMAL 100 - 129 mg/dl NEAR OR ABOVE OPTIMAL 130 - 159 mg/dl BORDERLINE HIGH 160 - 189 mg/dl HIGH >190 mg/dl VERY HIGH Performed By: #### L IPID, CMP, TSH #### [facility] [address] [address] [address] Glenny Sneed Triglyceride [Mass/Vol] 172 mg/dL Critically high <=150 [facility] Comment on above: Performed By: #### L IPID, CMP, TSH #### [facility] [address] [place] [address] Dr. Glenny Sneed VLDL CALC 34.4 mg/dL Normal [facility] Comment on above: Performed By: #### L IPID, CMP, TSH #### [facility] [address] [place] [address] Dr. Glenny Sneed PROF 14(COMP METB)on 023 Albumin [Mass/Vol] 4.1 g/dL Normal 3.4-5.0 [facility] Comment on above: Performed By: #### L IPID, CMP, TSH #### [facility] [address] [place] [address] Dr. Glenny Sneed Albumin/Globulin [Mass ratio] 1.0 {ratio} Normal [facility] Comment on above: Performed By: #### L IPID, CMP, TSH #### [facility] [address] [place] [address] Dr. Glenny Sneed ALP [Catalytic activity/Vol] 77 U/L Normal 46-116 [facility] Comment on above: Performed By: #### L IPID, CMP, TSH #### [facility] [address] [place] [address] Dr. Gelnny Sneed ALT [Catalytic activity/Vol] 33 U/L Normal 14-59 [facility] Comment on above: Performed By: #### L IPID, CMP, TSH #### [facility] [address] [place] [address] Dr. Glenny Sneed Anion gap [Moles/Vol] 13.1 mmol/L Normal [facility] Comment on above: Performed By: #### L IPID, CMP, TSH #### [facility] [address] [place] [address] Dr. Glenny Sneed AST [Catalytic activity/Vol] 22 U/L Normal 15-37 [facility] Comment on above: Performed By: #### L IPID, CMP, TSH #### [facility] [address] [place] [address] Dr. Glenny Sneed Bilirubin [Mass/Vol] 0.7 mg/dL Normal 0.2-1.0 [facility] Comment on above: Performed By: #### L IPID, CMP, TSH #### [facility] [address] [place] [address] Dr. Glenny Sneed Calcium [Mass/Vol] 10.0 mg/dL Normal 8.5-10.1 [facility] Comment on above: Performed By: #### L IPID, CMP, TSH #### [facility] [address] [address] [address] Glenny Sneed Chloride [Moles/Vol] 102 mmol/L Normal 98-107 [facility] Comment on above: Performed By: #### L IPID, CMP, TSH #### [facility] [address] [place] [address] Dr. Glenny Sneed CO2 [Moles/Vol] 29.9 mmol/L Normal 21.0-32.0 [facility] Comment on above: Performed By: #### L IPID, CMP, TSH #### [facility] [address] [place] [address] Dr. Glenny Sneed Creatinine [Mass/Vol] 0.66 mg/dL Normal 0.55-1.02 [facility] Comment on above: Performed By: #### L IPID, CMP, TSH #### [facility] [address] [place] [address] Dr. Glenny Sneed EGFR-AF TANZANIAN >60 Normal >=60 [facility] Comment on above: Performed By: #### L IPID, CMP, TSH #### [facility] [address] [place] [address] Dr. Glenny Sneed EGFR-NON AF TANZANIAN >60 Normal >=60 [facility] Comment on above: Performed By: #### L IPID, CMP, TSH #### [facility] [address] [place] [address] Dr. Glenny Sneed Globulin (S) [Mass/Vol] 4.0 g/dL Normal [facility] Comment on above: Performed By: #### L IPID, CMP, TSH #### [facility] [address] [address] [address] Glenny Sneed Glucose [Mass/Vol] 106 mg/dL Normal 74-106 [facility] Comment on above: Performed By: #### L IPID, CMP, TSH #### [facility] [address] [address] [address] Glenny Sneed Potassium [Moles/Vol] 4.0 mmol/L Normal 3.5-5.1 [facility] Comment on above: Performed By: #### L IPID, CMP, TSH #### [facility] [address] [address] [address] Glenny Sneed Protein [Mass/Vol] 8.1 g/dL Normal 6.4-8.2 [facility] Comment on above: Performed By: #### L IPID, CMP, TSH #### [facility] [address] [address] [address] Glenny Sneed Sodium [Moles/Vol] 141 mmol/L Normal 136-145 [facility] Comment on above: Performed By: #### L IPID, CMP, TSH #### [facility] [address] [address] [address] Glenny Sneed Urea nitrogen [Mass/Vol] 9.0 mg/dL Normal 7.0-18.0 [facility] Comment on above: Performed By: #### L IPID, CMP, TSH #### [facility] [address] [address] [address] Glenny Sneed Urea nitrogen/Creatinine [Mass ratio] 13.6 mg/mg Normal [facility] Comment on above: Performed By: #### L IPID, CMP, TSH #### [facility] [address] [address] [address] Glenny Sneed TSHon 11-07-2022 TSH 2.008 uIU/mL Normal 0.358-3.740 [facility] Comment on above: Performed By: #### L IPID, CMP, TSH #### [facility] [address] [address] [address] Glenny Sneed UA RANDOM W/MICROSCOPICon BACTERIA NONE SEEN Normal NONE SEEN [facility] Comment on above: Performed By: #### U AMIC #### [facility] [address] [place] [address] Dr. Glenny Sneed Bilirubin Ql (U) Negative Normal NEGATIVE [facility] Comment on above: Performed By: #### U AMIC #### [facility] [address] [place] [address] Dr. Glenny Sneed CAST NONE SEEN Normal NONE SEEN [facility] Comment on above: Performed By: #### U AMIC #### [facility] [address] [place] [address] Dr. Glenny Sneed Clarity (U) CLEAR Normal CLEAR [facility] Comment on above: Performed By: #### U AMIC #### [facility] [address] [place] [address] Dr. Glenny Sneed Color (U) LT. YELLOW Normal YELLOW [facility] Comment on above: Performed By: #### U AMIC #### [facility] [address] [place] [address] Dr. Glenny Sneed Crystals LM Nom (Urine sed) NONE SEEN Normal NONE SEEN [facility] Comment on above: Performed By: #### U AMIC #### [facility] [address] [place] [address] Dr. Glenny Sneed Epithelial cells LM Ql (Urine sed) NONE SEEN Normal NONE SEEN /RARE [facility] Comment on above: Performed By: #### U AMIC #### [facility] [address] [address] [address] Glenny Sneed Glucose Ql (U) Negative Normal NEGATIVE [facility] Comment on above: Performed By: #### U AMIC #### [facility] [address] [place] [address] Dr. Glenny Sneed Hemoglobin Ql (U) TRACE-INTACT Abnormal NEGATIVE [facility] Comment on above: Performed By: #### U AMIC #### [facility] [address] [place] [address] Dr. Glenny Sneed Ketones Ql (U) Negative Normal NEGATIVE [facility] Comment on above: Performed By: #### U AMIC #### [facility] [address] [address] [address] Glenny Sneed LEUKOCYTES Negative Normal NEGATIVE [facility] Comment on above: Performed By: #### U AMIC #### [facility] [address] [address] [address] Glenny Sneed MUCOUS NONE SEEN Normal NONE SEEN [facility] Comment on above: Performed By: #### U AMIC #### [facility] [address] [place] [address] Dr. Glenny Sneed Nitrite Ql (U) Negative Normal NEGATIVE [facility] Comment on above: Performed By: #### U AMIC #### [facility] [address] [place] [address] Dr. Glenny Sneed pH (U) 6.5 [pH] Normal 5-9 [facility] Comment on above: Performed By: #### U AMIC #### [facility] [address] [place] [address] Dr. Glenny Sneed RBC 0-2 Normal 0-2 [facility] Comment on above: Performed By: #### U AMIC #### [facility] [address] [place] [address] Dr. Glenny Sneed SPEC GRAVITY <=1.005 Abnormal 1.005-<=1.025 [facility] Comment on above: Performed By: #### U AMIC #### [facility] [address] [place] [address] Dr. Glenny Sneed UA PROTEIN Negative Normal NEGATIVE/ TRACE [facility] Comment on above: Performed By: #### U AMIC #### [facility] [address] [place] [address] Dr. Glenny Sneed Urobilinogen Qn (U) 0.2 {Justice'U}/dL Normal 0.2 - 1. 0 [facility] Comment on above: Performed By: #### U AMIC #### [facility] [address] [place] [address] Dr. Glenny Sneed WBC NONE SEEN Normal NONE SEEN [facility] Comment on above: Performed By: #### U AMIC #### [facility] [address] [place] [address] Dr. Glenny Sneed VITAMIN D 25 OHon 11-07-2022 VIT D 25-OH 35.2 ng/mL Normal [facility] Comment on above: Performed By: #### F T4, VITAD #### [facility] [address] [place] [address] Dr. Glenny Sneed VIT D RANGES SEE BELOW Normal [facility] Comment on above: Result Comment: <20 ng/mL Vit D deficient 20 - <30 ng/mL Vit D insufficient 30 - 100 ng/mL Vit D sufficient >100 ng/mL Potential Toxicity Performed By: #### F T4, VITAD #### [facility] [address] [place] [address] Dr. Glenny Sneed HEPATITIS C ANTIBODYon 05-10 Hep C Virus Ab <0.1 Normal 0.0-0.9 [facility] Comment on [...] Hepatitis C Virus (HCV) RNA, Diagnosis, CORTES (049033) and Hepatitis C Virus (HCV) Antibody with reflex to Quantitative Real-time PCR ([id number]). Performed By: #### T SH, FT3 #### [facility] [address] [place] [address] Dr. Glenny Sneed LIPID PROFILEon 05-08-2022 CHOL-HDL RATIO NORM SEE BELOW Normal [facility] Comment on above: Result Comment: 3.3 - 4.4 LOW RISK 4.4 - 7.1 AVERAGE RISK 7.1 - 11.0 MODERATE RISK >11.0 HIGH RISK Performed By: #### T SH, FT3 #### [facility] [address] [place] [address] Dr. Glenny Sneed Cholesterol [Mass/Vol] 173 mg/dL Normal <=200 [facility] Comment on above: Performed By: #### T SH, FT3 #### [facility] [address] [address] [address] Glenny Sneed Cholesterol in HDL [Mass/Vol] 67 mg/dL Critically high 40-60 [facility] Comment on above: Performed By: #### T SH, FT3 #### [facility] [address] [address] [address] Glenny Sneed Cholesterol in LDL [Mass/Vol] 77.8 mg/dL Normal [facility] Comment on above: Performed By: #### T SH, FT3 #### [facility] [address] [address] [address] Glenny Sneed Cholesterol.total/Ch olesterol in HDL [Mass ratio] 2.6 {ratio} Normal [facility] Comment on above: Performed By: #### T SH, FT3 #### [facility] [address] [place] [address] Dr. Glenny Sneed HDL NORMAL > or = 60 mg/dl - LO W CARDIOVASCULAR RISK <40 mg/dl - HIGH CARDIOVASCULAR RISK Normal [facility] Comment on above: Performed By: #### T SH, FT3 #### [facility] [address] [place] [address] Dr. Glenny Sneed LDL CALC NORMAL SEE BELOW Normal [facility] Comment on above: Result Comment: <100 mg/dl OPTIMAL 100 - 129 mg/dl NEAR OR ABOVE OPTIMAL 130 - 159 mg/dl BORDERLINE HIGH 160 - 189 mg/dl HIGH >190 mg/dl VERY HIGH Performed By: #### T SH, FT3 #### [facility] [address] [address] [address] Glenny Sneed Triglyceride [Mass/Vol] 141 mg/dL Normal <=150 [facility] Comment on above: Performed By: #### T SH, FT3 #### [facility] [address] [place] [address] Dr. Glenny Sneed VLDL CALC 28.2 mg/dL Normal [facility] Comment on above: Performed By: #### T SH, FT3 #### [facility] [address] [place] [address] Dr. Glenny Sneed LIVER PROFILEon 05-08-2022 Albumin [Mass/Vol] 4.0 g/dL Normal 3.4-5.0 [facility] Comment on above: Performed By: #### T SH, FT3 #### [facility] [address] [place] [address] Dr. Glenny Sneed Albumin/Globulin [Mass ratio] 1.0 {ratio} Normal [facility] Comment on above: Performed By: #### T SH, FT3 #### [facility] [address] [place] [address] Dr. Glenny Sneed ALP [Catalytic activity/Vol] 77 U/L Normal 46-116 [facility] Comment on above: Performed By: #### T ZENAIDA, FT3 #### [facility] [address] [place] [address] Dr. Glenny Sneed ALT [Catalytic activity/Vol] 39 U/L Normal 14-59 [facility] Comment on above: Performed By: #### T ZENAIDA, FT3 #### [facility] [address] [place] [address] Dr. Glenny Sneed AST [Catalytic activity/Vol] 20 U/L Normal 15-37 [facility] Comment on above: Performed By: #### T ZENAIDA, FT3 #### [facility] [address] [place] [address] Dr. Glenny Sneed BILI, CONJUGATED 0.1 mg/dL Normal 0.0-0.2 [facility] Comment on above: Performed By: #### T ZENAIDA, FT3 #### [facility] [address] [place] [address] Dr. Glenny Sneed Bilirubin [Mass/Vol] 0.7 mg/dL Normal 0.2-1.0 [facility] Comment on above: Performed By: #### T SH, FT3 #### [facility] [address] [place] [address] Dr. Glenny Sneed Globulin (S) [Mass/Vol] 4.0 g/dL Normal [facility] Comment on above: Performed By: #### T SH, FT3 #### [facility] [address] [place] [address] Dr. Glenny Sneed Protein [Mass/Vol] 8.0 g/dL Normal 6.4-8.2 [facility] Comment on above: Performed By: #### T SH, FT3 #### [facility] [address] [place] [address] Dr. Glenny Sneed LIVER PROFILEon 02-13-2022 Albumin [Mass/Vol] 3.9 g/dL Normal 3.4-5.0 [facility] Comment on above: Performed By: #### T SH, FT3 #### [facility] [address] [place] [address] Dr. Glenny Sneed Albumin/Globulin [Mass ratio] 1.0 {ratio} Normal [facility] Comment on above: Performed By: #### T SH, FT3 #### [facility] [address] [place] [address] Dr. Glenny Sneed ALP [Catalytic activity/Vol] 112 U/L Normal 46-116 [facility] Comment on above: Performed By: #### T , FT3 #### [facility] [address] [place] [address] Dr. Glenny Sneed ALT [Catalytic activity/Vol] 50 U/L Normal 14-59 [facility] Comment on above: Performed By: #### T SH, FT3 #### [facility] [address] [place] [address] Dr. Glenny Sneed AST [Catalytic activity/Vol] 25 U/L Normal 15-37 [facility] Comment on above: Performed By: #### T SH, FT3 #### [facility] [address] [place] [address] Dr. Glenny Sneed BILI, CONJUGATED 0.2 mg/dL Normal 0.0-0.2 [facility] Comment on above: Performed By: #### T SH, FT3 #### [facility] [address] [place] [address] Dr. Glenny Sneed Bilirubin [Mass/Vol] 0.7 mg/dL Normal 0.2-1.0 [facility] Comment on above: Performed By: #### T SH, FT3 #### [facility] [address] [place] [address] Dr. Glenny Sneed Globulin (S) [Mass/Vol] 4.0 g/dL Normal [facility] Comment on above: Performed By: #### T SH, FT3 #### [facility] [address] [place] [address] Dr. Glenny Sneed Protein [Mass/Vol] 7.9 g/dL Normal 6.4-8.2 [facility] Comment on above: Performed By: #### T SH, FT3 #### [facility] [address] [place] [address] Dr. Glenny COLEOTon 01-23-2022 AST [Catalytic activity/Vol] 41 U/L Critically high 15-37 [facility] Comment on above: Performed By: #### T SH, FT3 #### [facility] [address] [place] [address] Dr. Glenny Sneed SGPTon 01-23-2022 ALT [Catalytic activity/Vol] 85 U/L Critically high 14-59 [facility] Comment on above: Performed By: #### T SH, FT3 #### [facility] [address] [place] [address] Dr. Glenny Sneed LIPID PROFILEon 01-07-2022 CHOL-HDL RATIO NORM SEE BELOW Normal [facility] [facility] Comment on above: Result Comment: 3.3 - 4.4 LOW RISK 4.4 - 7.1 AVERAGE RISK 7.1 - 11.0 MODERATE RISK >11.0 HIGH RISK Performed By: #### T SH, FT3 #### [facility] [address] [place] [address] Dr. Glenny Sneed Cholesterol [Mass/Vol] 144 mg/dL Normal <=200 [facility] Comment on above: Performed By: #### T SH, FT3 #### [facility] [address] [place] [address] Dr. Glenny Sneed Cholesterol in HDL [Mass/Vol] 63 mg/dL Critically high 40-60 [facility] Comment on above: Performed By: #### T SH, FT3 #### [facility] [address] [place] [address] Dr. Glenny Sneed Cholesterol in LDL [Mass/Vol] 56.2 mg/dL Normal [facility] Comment on above: Performed By: #### T SH, FT3 #### [facility] [address] [place] [address] Dr. Glenny Sneed Cholesterol.total/Ch olesterol in HDL [Mass ratio] 2.3 {ratio} Normal [facility] Comment on above: Performed By: #### T SH, FT3 #### [facility] [address] [place] [address] Dr. Glenny Sneed HDL NORMAL > or = 60 mg/dl - LO W CARDIOVASCULAR RISK <40 mg/dl - HIGH CARDIOVASCULAR RISK Normal [facility] Comment on above: Performed By: #### T SH, FT3 #### [facility] [address] [place] [address] Dr. Glenny Sneed LDL CALC NORMAL SEE BELOW Normal [facility] Comment on above: Result Comment: <100 mg/dl OPTIMAL 100 - 129 mg/dl NEAR OR ABOVE OPTIMAL 130 - 159 mg/dl BORDERLINE HIGH 160 - 189 mg/dl HIGH >190 mg/dl VERY HIGH Performed By: #### T SH, FT3 #### [facility] [address] [place] [address] Dr. Glenny Sneed Triglyceride [Mass/Vol] 124 mg/dL Normal <=150 [facility] Comment on above: Performed By: #### T SH, FT3 #### [facility] [address] [place] [address] Dr. Glenny Sneed VLDL CALC 24.8 mg/dL Normal [facility] Comment on above: Performed By: #### T ZENAIDA, FT3 #### [facility] [address] [place] [address] Dr. Glenny Holden 01-07-2022 AST [Catalytic activity/Vol] 53 U/L Critically high 15-37 [facility] Comment on above: Performed By: #### T SH, FT3 #### [facility] [address] [address] [address] Glenny Sneed [facility] 01-07-2022 ALT [Catalytic activity/Vol] 108 U/L Critically high 14-59 [facility] Comment on above: Performed By: #### T , FT3 #### [facility] [address] [address] [address] Glenny Sneed Vital Signs Date Time Vital Sign Value Performing Clinician Faci lity 10-13-2024 10:14-0500 Diastolic blood pressure 60 mm[Hg] Pamela Oscar BILLBOARD MECHANIC Work Phone: [facility] 10-13-2024 10:14-0500 Systolic blood pressure 162 mm[Hg] Pamela Aichholz BILLBOARD MECHANIC Work Phone: [facility] 10-13-2024 09:42-0500 Body height 154.9 cm Pamela Aichholz BILLBOARD MECHANIC Work Phone: [facility] 10-13-2024 09:42-0500 Body mass index (BMI) [Ratio] 29.82 kg/m2 Pamela Aichholz BILLBOARD MECHANIC Work Phone: [facility] 10-13-2024 09:42-0500 Body weight 71.58 kg Pamela Aichholz BILLBOARD MECHANIC Work Phone: [facility] 10-13-2024 09:42-0500 Heart rate 66 /min Pamela Aichholz BILLBOARD MECHANIC Work Phone: [facility] 10-13-2024 09:42-0500 Respiratory rate 18 /min Pamela Aichholz BILLBOARD MECHANIC Work Phone: [facility] 10-13-2024 09:42-0500 SaO2% (BldA) [Mass fraction] 99 % Pamela Aichholz BILLBOARD MECHANIC Work Phone: [facility] 08-18-2024 10:06-0500 Diastolic blood pressure 70 mm[Hg] Pamela Aichholz BILLBOARD MECHANIC Work Phone: [facility] 08-18-2024 10:06-0500 Systolic blood pressure 154 mm[Hg] Pamela Aichholz BILLBOARD MECHANIC Work Phone: [facility] 08-18-2024 09:48-0500 Body height 154.9 cm Pamelamaria elena Langleyz BILLBOARD MECHANIC Work Phone: [facility] 08-18-2024 09:48-0500 Body mass index (BMI) [Ratio] 30.08 kg/m2 Pamela Dougholz BILLBOARD MECHANIC Work Phone: [facility] 08-18-2024 09:48-0500 Body temperature 97.81 [degF] Pamela Dougholz BILLBOARD MECHANIC Work Phone: [facility] 08-18-2024 09:48-0500 Body weight 72.21 kg Pamela Dougholz BILLBOARD MECHANIC Work Phone: [facility] 08-18-2024 09:48-0500 Heart rate 59 /min Pamela Dougholz BILLBOARD MECHANIC Work Phone: [facility] 08-18-2024 09:48-0500 Respiratory rate 19 /min Pamelamaria elena Langleyz BILLBOARD MECHANIC Work Phone: [facility] 08-18-2024 09:48-0500 SaO2% (BldA) [Mass fraction] 99 % Pamela Korinz BILLBOARD MECHANIC Work Phone: [facility] 07-07-2024 10:27-0400 Body height 154.9 cm Pamela Dougholz BILLBOARD MECHANIC Work Phone: [facility] 07-07-2024 10:27-0400 Body mass index (BMI) [Ratio] 29.97 kg/m2 Pamela Dougholz BILLBOARD MECHANIC Work Phone: [facility] 07-07-2024 10:27-0400 Body temperature 98.49 [degF] Pamela Dougholz BILLBOARD MECHANIC Work Phone: [facility] 07-07-2024 10:27-0400 Body weight 71.94 kg Pamela Tavohholz BILLBOARD MECHANIC Work Phone: [facility] 07-07-2024 10:27-0400 Diastolic blood pressure 62 mm[Hg] Pamela Aichholz BILLBOARD MECHANIC Work Phone: [facility] 07-07-2024 10:27-0400 Heart rate 64 /min Pamela Aichholz BILLBOARD MECHANIC Work Phone: [facility] 07-07-2024 10:27-0400 Respiratory rate 20 /min Pamela Aichholz BILLBOARD MECHANIC Work Phone: [facility] 07-07-2024 10:27-0400 SaO2% (BldA) [Mass fraction] 98 % Pamela Aichholz BILLBOARD MECHANIC Work Phone: [facility] 07-07-2024 10:27-0400 Systolic blood pressure 142 mm[Hg] Pamela Aichholz BILLBOARD MECHANIC Work Phone: [facility] 06-10-2024 09:22-0400 Body mass index (BMI) [Ratio] 29.7 kg/m2 Pamela Aichholz BILLBOARD MECHANIC Work Phone: [facility] 06-10-2024 09:22-0400 Body temperature 98.49 [degF] Pamela Aichholz BILLBOARD MECHANIC Work Phone: [facility] 06-10-2024 09:22-0400 Body weight 71.31 kg Pamela Aichholz BILLBOARD MECHANIC Work Phone: [facility] 06-10-2024 09:22-0400 Diastolic blood pressure 78 mm[Hg] Pamela Aichholz BILLBOARD MECHANIC Work Phone: [facility] 06-10-2024 09:22-0400 Heart rate 59 /min Pamela Aichholz BILLBOARD MECHANIC Work Phone: [facility] 06-10-2024 09:22-0400 SaO2% (BldA) [Mass fraction] 99 % Pamela Aichholz BILLBOARD MECHANIC Work Phone: [facility] 06-10-2024 09:22-0400 Systolic blood pressure 152 mm[Hg] Pamela Aichholz BILLBOARD MECHANIC Work Phone: [facility] 11-05-2023 09:44-0500 Body height 154.9 cm Pamela Langleyz BILLBOARD MECHANIC Work Phone: [facility] 11-05-2023 09:44-0500 Body mass index (BMI) [Ratio] 30 kg/m2 Pamelamaria elena Camachoholz BILLBOARD MECHANIC Work Phone: [facility] 11-05-2023 09:44-0500 Body temperature 97.5 [degF] Pamela Camachosarahz BILLBOARD MECHANIC Work Phone: [facility] 11-05-2023 09:44-0500 Body weight 72.03 kg Pamela Tavohholz BILLBOARD MECHANIC Work Phone: [facility] 11-05-2023 09:44-0500 Diastolic blood pressure 68 mm[Hg] Pameal Dougholz BILLBOARD MECHANIC Work Phone: [facility] 11-05-2023 09:44-0500 Heart rate 61 /min Pamela Dougholz BILLBOARD MECHANIC Work Phone: [facility] 11-05-2023 09:44-0500 Respiratory rate 18 /min Pamela Tavohholz BILLBOARD MECHANIC Work Phone: [facility] 11-05-2023 09:44-0500 SaO2% (BldA) [Mass fraction] 98 % Pamela Dougholz BILLBOARD MECHANIC Work Phone: [facility] 11-05-2023 09:44-0500 Systolic blood pressure 138 mm[Hg] Pamela Dougholz BILLBOARD MECHANIC Work Phone: [facility] Healthcare Encounters Encounter Date Encounter Type Care Provider Facility Start: 01-03-2025 End: 01-03-2025 Refill Pamela Korinz BILLBOARD MECHANIC Work Phone: [facility] Comment on above: Age related osteopor osis, unspecified pathological fracture presence (CMS/HCC); Hyperlipidemia, unspecified (CMS/HCC) Start: 12-24-2024 End: 12-24-2024 Clinisync Result Encounter Pamela Voskuhi BILLBOARD MECHANIC Work Phone: [facility] External Department Unsolicited Start: 12-24-2024 End: 12-24-2024 Clinisync Result Encounter Pamela Korinz BILLBOARD MECHANIC Work Phone: [facility] Unsolicited Start: 10-13-2024 End: 10-13-2024 Bamboo flowsheet Pamela Tavohholz BILLBOARD MECHANIC Work Phone: [facility] Start: 10-13-2024 End: 10-13-2024 Bamboo flowsheet Pamela Tavohholz BILLBOARD MECHANIC Work Phone: [facility] Start: 10-13-2024 End: 10-13-2024 Office outpatient visit 25 minutes Pamela Oscar BILLBOARD MECHANIC Work Phone: [facility] Comment on above: Primary hypertension (CMS/HCC) (Primary Dx); Class 1 obesity due to excess calories without serious comorbidity with body mass index (BMI) of 30.0 to 30.9 in adult; Hypothyroidism (acquired) (CMS/HCC); LORI (generalized anxiety disorder) (CMS/HCC) Start: 10-13-2024 End: 10-13-2024 ambulatory PAMELA AICHHOLZ Not Available Start: 10-11-2024 End: 10-11-2024 Clinisync Result Encounter Pamela Tavohholz BILLBOARD MECHANIC Work Phone: [facility] Unsolicited Start: 10-11-2024 End: 10-11-2024 Clinisync Result Encounter Pamela Tavohholz BILLBOARD MECHANIC Work Phone: [facility] Unsolicited Start: 10-04-2024 End: 10-04-2024 Orders Only Pamela Tavohholz BILLBOARD MECHANIC Work Phone: [facility] Comment on above: Hypothyroidism (acqu ired) (CMS/HCC) (Primary Dx) Start: 08-30-2024 End: 08-30-2024 Clinisync Result Encounter Pamela Aichholz BILLBOARD MECHANIC Work Phone: [facility] Unsolicited Start: 08-30-2024 End: 08-30-2024 Clinisync Result Encounter Pamela Aichholz BILLBOARD MECHANIC Work Phone: [facility] External Department Unsolicited Start: 08-25-2024 End: 08-25-2024 Refill Pamela Oscar BILLBOARD MECHANIC Work Phone: [facility] Comment on above: Allergic rhinitis, u nspecified seasonality, unspecified trigger (Primary Dx); Acute bronchitis, unspecified; Age related osteoporosis, unspecified pathological fracture presence (CMS/HCC) Start: 08-18-2024 End: 08-18-2024 Bamboo flowsheet Pamela Moore BILLBOARD MECHANIC Work Phone: [facility] Start: 08-18-2024 End: 08-18-2024 Bamboo flowsheet Pamela Moore BILLBOARD MECHANIC Work Phone: [facility] Start: 08-18-2024 End: 08-18-2024 Clinisync Result Encounter Pamela Moore BILLBOARD MECHANIC Work Phone: [facility] External Department Unsolicited Start: 08-18-2024 End: 08-18-2024 Office outpatient visit 15 minutes Pamela Moore BILLBOARD MECHANIC Work Phone: [facility] Comment on above: Primary hypertension (CMS/HCC) (Primary Dx); Pelvic pain; Gastroesophageal reflux disease, unspecified whether esophagitis present; Obesity (BMI 30-39.9); Vitamin D deficiency; Class 1 obesity due to excess calories without serious comorbidity with body mass index (BMI) of 30.0 to 30.9 in adult Start: 08-18-2024 End: 08-18-2024 Orders Only Pamela Moore BILLBOARD MECHANIC Work Phone: [facility] Comment on above: Hyperglycemia (Prima ry Dx) Start: 07-13-2024 End: 07-13-2024 Refill Pamela Moore BILLBOARD MECHANIC Work Phone: [facility] Comment on above: Hypothyroidism (acqu ired) (CMS/HCC) (Primary Dx) Start: 07-07-2024 End: 07-07-2024 Bamboo flowsheet Pamela Moore BILLBOARD MECHANIC Work Phone: [facility] Start: 07-07-2024 End: 07-13-2024 Bamboo flowsheet Pamela Oscar BILLBOARD MECHANIC Work Phone: [facility] Start: 07-07-2024 End: 07-13-2024 Clinisync Result Encounter Pamela Tavoevertonsharda BILLBOARD MECHANIC Work Phone: [facility] External [facility] Unsolicited Start: 07-07-2024 End: 07-09-2024 External Result Encounter Pamela Camachosharda BILLBOARD MECHANIC Work Phone: [facility] Unsolicited Start: 07-07-2024 End: 07-07-2024 Office outpatient visit 25 minutes Pamela Oscar BILLBOARD MECHANIC Work Phone: [facility] Comment on above: Encounter for well w kathy exam with routine gynecological exam (Primary Dx); Hypothyroidism (acquired) (CMS/HCC); Vaginal discharge; Pelvic pain Start: 07-07-2024 End: 07-07-2024 Patient encounter procedure Pamela Oscar BILLBOARD MECHANIC Work Phone: [facility] Start: 07-07-2024 End: 07-07-2024 ambulatory PAMELA OSCAR Not Available Start: 06-24-2024 End: 06-25-2024 Refill Pamela Oscar BILLBOARD MECHANIC Work Phone: [facility] Comment on above: Hyperlipidemia, unsp ecified (CMS/HCC) Start: 06-10-2024 End: 06-10-2024 Bamboo flowsheet Pamela Oscar BILLBOARD MECHANIC Work Phone: [facility] Start: 06-10-2024 End: 06-10-2024 Bamboo flowsheet Pamela Oscar BILLBOARD MECHANIC Work Phone: [facility] Start: 06-10-2024 End: 06-10-2024 Office outpatient visit 25 minutes Pamelamaria elena Moore BILLBOARD MECHANIC Work Phone: [facility] Comment on above: Primary hypertension (CMS/HCC) (Primary Dx); Gastroesophageal reflux disease, unspecified whether esophagitis present; Vitamin D deficiency; Pre-diabetes; Hypothyroidism (acquired) ([facility]); Mixed hyperlipidemia ([facility]) Start: 06-10-2024 End: 06-10-2024 ambulatory PAMELA AICHHOLZ Not Available Start: 05-31-2024 End: 05-31-2024 Refill Pamela Aichholz BILLBOARD MECHANIC Work Phone: [facility] Comment on above: Age related osteopor osis, unspecified pathological fracture presence ([facility]) Start: 05-10-2024 End: 05-10-2024 ambulatory PAMELA AICHHOLZ Not Available Start: 04-29-2024 End: 04-29-2024 ambulatory MD Jorge Goncalves Work Phone: [facility] Work Phone: Start: 04-29-2024 End: 04-29-2024 Patient encounter procedure MD Jorge Goncalves Work Phone: [facility] Work Phone: Start: 04-29-2024 End: 04-29-2024 Patient encounter procedure MD Jorge Goncalves Work Phone: [facility] Start: 04-29-2024 End: 04-29-2024 ambulatory MD Jorge Goncalves Work Phone: [facility] Work Phone: Start: 04-14-2024 Patient encounter procedure Pamela Aichholz BILLBOARD MECHANIC Work Phone: [facility] Start: 04-14-2024 End: 04-14-2024 ambulatory PAMELA AICHHOLZ Not Available Start: 04-01-2024 End: 04-01-2024 ambulatory LONG BOLIVAR [facility] Start: 03-08-2024 End: 03-08-2024 ambulatory PAMELA AICHHOLZ Not Available Start: 12-22-2023 End: 01-21-2024 ambulatory BRAXTON ESCALANTE [facility] Start: 12-15-2023 End: 12-22-2023 ambulatory PAMELA MOORE [facility] Start: 12-11-2023 End: 12-11-2023 ambulatory MD Jorge Goncalves Work Phone: [facility] Work Phone: Start: 12-11-2023 End: 12-11-2023 Patient encounter procedure MD Jorge Goncalves Work Phone: [facility] Work Phone: Start: 11-05-2023 Bamboo flowsheet Pamela Moore BILLBOARD MECHANIC Work Phone: [facility] Start: 11-05-2023 Bamboo flowsheet Pamela Moore BILLBOARD MECHANIC Work Phone: [facility] Start: 11-05-2023 End: 11-05-2023 Office outpatient visit 25 minutes Pamela Moore BILLBOARD MECHANIC Work Phone: [facility] Comment on above: Gastroesophageal ref lux disease, unspecified whether esophagitis present (Primary Dx); Age related osteoporosis, unspecified pathological fracture presence (CMS/HCC); Vitamin D deficiency; Pre-diabetes; Hypothyroidism (acquired) (CMS/HCC); Mixed hyperlipidemia (CMS/[facility]); Encounter for screening mammogram for malignant neoplasm of breast; BMI 30.0-30.9,adult; Chronic left shoulder pain Start: 11-05-2023 End: 11-05-2023 ambulatory PAMELA MOORE Not Available Start: 02-20-2023 ambulatory JORGE GONCALVES Facility :[facility] Start: 01-03-2023 End: 01-04-2023 ambulatory COCO MOORE Facility:[facility] Start: 12-16-2022 End: 12-17-2022 ambulatory COCO RODRIGUEZA OSCAR Facility:[facility] Start: 11-07-2022 End: 11-08-2022 ambulatory COCO RODRIGUEZA OSCAR Facility:[facility] Start: 05-08-2022 End: 08-18-2022 ambulatory COCO MOORE Facility:[facility] Start: 02-13-2022 End: 02-14-2022 ambulatory SOIL TECHNICIAN PAMELA CAMACHOHOLYamile Facility:[facility] Start: 01-23-2022 End: 01-24-2022 ambulatory SOIL TECHNICIAN PAMELA MOORE Facility:[facility] Start: 01-07-2022 End: 01-08-2022 ambulatory SOIL TECHNICIAN PAMELA MOORE Facility:[facility] Procedures Date Procedure Procedure Detail Performing Clinician Start: 12-24-2024 ALL THYROID STIM HORMONE Pamela Dougholz BILLBOARD MECHANIC Work Phone: Start: 10-11-2024 ALL THYROID STIM HORMONE Pamela Dougholz BILLBOARD MECHANIC Work Phone: Start: 10-11-2024 ALL THYROXINE (T4) FREE Pamela Oscar BILLBOARD MECHANIC Work Phone: Start: 08-30-2024 MLR HEMOGLOBIN A1C Pamela Oscar BILLBOARD MECHANIC Work Phone: Start: 08-18-2024 TBH UA (CLEAN/CATCH) MICROSCOPIC IF INDICATE Pamela Camachosharda BILLBOARD MECHANIC Work Phone: Start: 07-07-2024 IGP,APTIMA HPV,AGE GDLN Pamela Oscar BILLBOARD MECHANIC Work Phone: Start: 07-07-2024 VAGINITIS (HTRX) Pamela munoz BILLBOARD MECHANIC Work Phone: Start: 04-29-2024 Plain X-ray of right shoulder MD Jorge Goncalves Work Phone: Start: 04-01-2024 End: 04-01-2024 Oph medical xm&eval comprhnsv estab pt 1/> Presbyopia Long Bolivar OD Work Phone: Comment on above: Presbyopia (Primary Dx); Myopia of both eyes; Regular astigmatism of both eyes; Age-related nuclear cataract of both eyes; Dry eye syndrome of bilateral lacrimal glands Start: 12-11-2023 Plain X-ray of left shoulder MD Jorge Goncalves Work Phone: Start: 05-23-2021 Colonoscopy Pamela john BILLBOARD MECHANIC Work Phone: Plan of Treatment Date Care Activity Detail Author Start: 05-23-2031 Screening for malignant neoplasm of colon [facility] Start: 04-14-2025 Medicare Annual Wellness (AWV) Medicare Annual Wellness (AWV) [facility] Start: 01-12-2025 End: 01-12-2025 Patient encounter procedure 01/12/2025 9:40 AM EDT Office Visit [facility] [address] [place] [address] Pamela Moore, MARIKA [address] [place] [id number] [facility] Start: 12-13-2024 End: 10-13-2025 Thyroxine (T4) free [Mass/volume] in Serum or Plasma T4, free Lab Routine Hypothyroidism (acquired) ([facility]/HCC) Expected: 12/13/2024 (Approximate), Expires: 10/13/2025 [facility] Comment on above: Expected: 12/13/2024 (Approximate), Expi res: 10/13/2025 Start: 12-11-2024 End: 10-13-2025 Thyrotropin [Units/volume] in Serum or Plasma TSH Lab Routine Hypothyroidism (acquired) (CMS/HCC) Expected: 12/11/2024 (Approximate), Expires: 10/13/2025 [facility] Work Phone: Comment on above: Expected: 12/11/2024 (Approximate), Expi res: 10/13/2025 Start: 10-13-2024 End: 10-13-2024 Patient encounter procedure [facility] Comment on above: Primary hypertension (CMS/HCC) (Primary Dx); Class 1 obesity due to excess calories without serious comorbidity with body mass index (BMI) of 30.0 to 30.9 in adult; Hypothyroidism (acquired) ([facility]/HCC) Start: 10-04-2024 End: 10-04-2025 Thyrotropin [Units/volume] in Serum or Plasma TSH Lab Routine Hypothyroidism (acquired) ([facility]/HCC) Expected: 10/04/2024 (Approximate), Expires: 10/04/2025 [facility] Work Phone: Comment on above: Expected: 10/04/2024 (Approximate), Expi res: 10/04/2025 Start: 10-04-2024 End: 10-04-2025 Thyroxine (T4) free [Mass/volume] in Serum or Plasma T4, free Lab Routine Hypothyroidism (acquired) (CMS/HCC) Expected: 10/04/2024 (Approximate), Expires: 10/04/2025 [facility] Comment on above: Expected: 10/04/2024 (Approximate), Expi res: 10/04/2025 Start: 09-09-2024 End: 09-09-2024 Patient encounter procedure 09/09/2024 9:00 AM EST Office Visit [facility] [address] [place] [id number] Pamela Moore NP [address] [place] [id number] [facility] Start: 08-18-2024 End: 08-18-2025 Hemoglobin A1c/Hemoglobin.total in Blood Hemoglobin A1c Lab Routine Hyperglycemia Expected: 08/18/2024 (Approximate), Expires: 08/18/2025 [facility] Work Phone: Comment on above: Expected: 08/18/2024 (Approximate), Expi res: 08/18/2025 Start: 08-18-2024 End: 08-18-2024 Patient encounter procedure [facility] Comment on above: Pelvic pain (Primary Dx); Primary hypertension (CMS/HCC); Gastroesophageal reflux disease, unspecified whether esophagitis present; Obesity (BMI 30-39.9) Start: 07-07-2024 End: 07-07-2025 THIN PREP TIS PAP AND HR HPV DNA THIN PREP TIS PAP AND HR HPV DNA Pathology and Cytology Routine Encounter for well woman exam with routine gynecological exam Expected: 07/07/2024 (Approximate), Expires: 07/07/2025 [facility] Work Phone: Comment on above: Expected: 07/07/2024 (Approximate), Expi res: 07/07/2025 Start: 07-07-2024 End: 07-07-2025 US Pelvis transvaginal US pelvis transvaginal Imaging Routine Pelvic pain Expected: 07/07/2024 (Approximate), Expires: 07/07/2025 [facility] Comment on above: Expected: 07/07/2024 (Approximate), Expi res: 07/07/2025 Start: 07-07-2024 End: 07-07-2025 VAGINITIS (HTRX) VAGINITIS (HTRX) Lab Routine Vaginal discharge Expected: 07/07/2024 (Approximate), Expires: 07/07/2025 [facility] Comment on above: Expected: 07/07/2024 (Approximate), Expi res: 07/07/2025 Start: 07-07-2024 End: 07-07-2024 Patient encounter procedure [facility] Comment on above: Hypothyroidism (acquired) (CMS/HCC) Start: 06-10-2024 End: 06-10-2025 25-hydroxyvitamin D3 [Mass/volume] in Serum or Plasma Vitamin D 25 hydroxy Lab Routine Mixed hyperlipidemia (CMS/HCC) Expected: 06/10/2024 (Approximate), Expires: 06/10/2025 [facility] Comment on above: Expected: 06/10/2024 (Approximate), Expi res: 06/10/2025 Start: 06-10-2024 End: 06-10-2025 CBC W Auto Differential panel - Blood CBC and differential Lab Routine Gastroesophageal reflux disease, unspecified whether esophagitis present Expected: 06/10/2024 (Approximate), Expires: 06/10/2025 [facility] Work Phone: Comment on above: Expected: 06/10/2024 (Approximate), Expi res: 06/10/2025 Start: 06-10-2024 End: 06-10-2025 Comprehensive metabolic 2000 panel - Serum or Plasma Comprehensive metabolic panel Lab Routine Primary hypertension (CMS/HCC) Vitamin D deficiency Pre-diabetes Hypothyroidism (acquired) (CMS/HCC) Mixed hyperlipidemia (CMS/HCC) Expected: 06/10/2024 (Approximate), Expires: 06/10/2025 [facility] Comment on above: Expected: 06/10/2024 (Approximate), Expi res: 06/10/2025 Start: 06-10-2024 End: 06-10-2025 Lipid 1996 panel - Serum or Plasma Lipid panel Lab Routine Mixed hyperlipidemia ([facility]) Expected: 06/10/2024 (Approximate), Expires: 06/10/2025 [facility] Comment on above: Expected: 06/10/2024 (Approximate), Expi res: 06/10/2025 Start: 06-10-2024 End: 06-10-2025 Thyrotropin [Units/volume] in Serum or Plasma TSH Lab Routine Hypothyroidism (acquired) ([facility]) Expected: 06/10/2024 (Approximate), Expires: 06/10/2025 [facility] Comment on above: Expected: 06/10/2024 (Approximate), Expi res: 06/10/2025 Start: 06-10-2024 End: 06-10-2025 Thyroxine (T4) free [Mass/volume] in Serum or Plasma T4, free Lab Routine Hypothyroidism (acquired) ([facility]) Expected: 06/10/2024 (Approximate), Expires: 06/10/2025 [facility] Comment on above: Expected: 06/10/2024 (Approximate), Expi res: 06/10/2025 Start: 06-10-2024 End: 06-10-2025 Triiodothyronine (T3) Free [Mass/volume] in Serum or Plasma T3, free Lab Routine Hypothyroidism (acquired) ([facility]) Expected: 06/10/2024 (Approximate), Expires: 06/10/2025 [facility] Comment on above: Expected: 06/10/2024 (Approximate), Expi res: 06/10/2025 Start: 06-10-2024 End: 06-10-2025 Urinalysis complete panel - Urine Urinalysis with reflex microscopic (clean catch) Lab Routine Primary hypertension ([facility]) Expected: 06/10/2024 (Approximate), Expires: 06/10/2025 [facility] Comment on above: Expected: 06/10/2024 (Approximate), Expi res: 06/10/2025 Start: 06-10-2024 End: 06-10-2024 Patient encounter procedure [facility] Comment on above: Arrived Start: 05-23-2024 Influenza vaccination Influenza Vaccine [facility] Start: 05-08-2024 Medicare Annual Wellness (AWV) Medicare Annual Wellness (AWV) [facility] Start: 04-29-2024 Plain X-ray of right shoulder XR shoulder RT min 2V* [facility] Start: 04-29-2024 XR Shoulder - right Views [facility] Start: 03-20-2024 Tobacco Screening Tobacco Screening [facility] Start: 03-08-2024 End: 03-08-2024 Patient encounter procedure 03/08/2024 9:40 AM EDT Office Visit [facility] [address] [place] [address] Pamela Moore NP [address] [place] [address] [facility] Start: 01-05-2024 End: 01-03-2025 MG Breast - bilateral Screening Bilateral screening mammogram Imaging Routine Encounter for screening mammogram for malignant neoplasm of breast Expected: 01/05/2024 (Approximate), Expires: 01/03/2025 [facility] Comment on above: Expected: 01/05/2024 (Approximate), Expi res: 01/03/2025 Start: 12-11-2023 Plain X-ray of left shoulder XR shoulder LT min 2V* [facility] Start: 12-11-2023 XR Shoulder - left Views [facility] Start: 11-05-2023 End: 11-05-2024 25-hydroxyvitamin D3 [Mass/volume] in Serum or Plasma Vitamin D 25 hydroxy Lab Routine Vitamin D deficiency Expected: 11/05/2023 (Approximate), Expires: 11/05/2024 [facility] Comment on above: Expected: 11/05/2023 (Approximate), Expi res: 11/05/2024 Start: 11-05-2023 End: 11-05-2024 CBC W Auto Differential panel - Blood CBC and differential Lab Routine Gastroesophageal reflux disease, unspecified whether esophagitis present Expected: 11/05/2023 (Approximate), Expires: 11/05/2024 [facility] Work Phone: Comment on above: Expected: 11/05/2023 (Approximate), Expi res: 11/05/2024 Start: 11-05-2023 End: 11-05-2024 Comprehensive metabolic 2000 panel - Serum or Plasma Comprehensive metabolic panel Lab Routine Gastroesophageal reflux disease, unspecified whether esophagitis present Age related osteoporosis, unspecified pathological fracture presence (CMS/HCC) Vitamin D deficiency Pre-diabetes Mixed hyperlipidemia (CMS/HCC) Expected: 11/05/2023 (Approximate), Expires: 11/05/2024 [facility] Comment on above: Expected: 11/05/2023 (Approximate), Expi res: 11/05/2024 Start: 11-05-2023 End: 11-05-2024 DXA Skeletal system Views for bone density DEXA bone density Imaging Routine Age related osteoporosis, unspecified pathological fracture presence (CMS/HCC) Expected: 11/05/2023 (Approximate), Expires: 11/05/2024 [facility] Comment on above: Expected: 11/05/2023 (Approximate), Expi res: 11/05/2024 Start: 11-05-2023 End: 11-05-2024 Hemoglobin A1c measurement Hemoglobin A1c Lab Routine Pre-diabetes Expected: 11/05/2023 (Approximate), Expires: 11/05/2024 [facility] Comment on above: Expected: 11/05/2023 (Approximate), Expi res: 11/05/2024 Start: 11-05-2023 End: 11-05-2024 Lipid 1996 panel - Serum or Plasma Lipid panel Lab Routine Pre-diabetes Hypothyroidism (acquired) (CMS/HCC) Mixed hyperlipidemia (CMS/HCC) Expected: 11/05/2023 (Approximate), Expires: 11/05/2024 [facility] Comment on above: Expected: 11/05/2023 (Approximate), Expi res: 11/05/2024 Start: 11-05-2023 End: 11-05-2024 Microalbumin/Creatinine panel in random Urine Microalbumin / creatinine, urine ratio Lab Routine Pre-diabetes Expected: 11/05/2023 (Approximate), Expires: 11/05/2024 [facility] Comment on above: Expected: 11/05/2023 (Approximate), Expi res: 11/05/2024 Start: 11-05-2023 End: 11-05-2024 Urinalysis complete panel - Urine Urinalysis with reflex microscopic (clean catch) Lab Routine Pre-diabetes Expected: 11/05/2023 (Approximate), Expires: 11/05/2024 [facility] Comment on above: Expected: 11/05/2023 (Approximate), Expi res: 11/05/2024 Start: 11-05-2023 End: 11-05-2023 Patient encounter procedure 11/05/2023 9:40 AM EST Office Visit [facility] [address] [place] [id number] Pamela Moore NP [address] [place] [address] Gastroesophageal reflux disease, unspecified whether esophagitis present (Primary Dx); Age related osteoporosis, unspecified pathological fracture presence (CMS/HCC); Vitamin D deficiency; Pre-diabetes; Hypothyroidism (acquired) (CMS/HCC); Mixed hyperlipidemia (CMS/HCC); Encounter for screening mammogram for malignant neoplasm of breast [facility] Comment on above: Gastroesophageal reflux disease, unspeci fied whether esophagitis present (Primary Dx); Age related osteoporosis, unspecified pathological fracture presence (CMS/HCC); Vitamin D deficiency; Pre-diabetes; Hypothyroidism (acquired) (CMS/HCC); Mixed hyperlipidemia (CMS/HCC); Encounter for screening mammogram for malignant neoplasm of breast Start: 05-23-2023 Influenza vaccination Influenza Vaccine (#1) [facility] Start: 2012 Fall Risk Screening Fall Risk Screening [facility] Start: 2012 Pneumococcal Vaccine: 65+ Years (1 - PCV) Pneumococcal Vaccine: 65+ Years (1 - PCV) [facility] Start: 1997 Administration of varicella zoster vaccine Zoster (Shingles) Vaccine (1 of 2) [facility] Start: 1966 DTaP,Tdap and Td Vaccines (1 - Tdap) DTaP,Tdap and Td Vaccines (1 - Tdap) [facility] Start: 1965 Adult BMI Screening Adult BMI Screening [facility] Start: 1959 Depression Screening Depression Screening [facility] Start: 1947 Screening for malignant neoplasm of colon [facility] Payers Date Payer Category Payer Self-pay [id number] 2021 Medicare (Managed Care) [employer] [id number] 2019 Medicare [id number] 1959 Unknown [id number] 1947 Unknown [id number] 2.16.840.1.424448.3.579.2. 593 1947 Unknown [id number] 2.16.840.1.124461.3.579.2. 593 1947 Unknown [id number] 2.16.840.1.860731.3.579.2. 593 1947 Unknown [id number] 2.16.840.1.371792.3.579.2. 593 1947 Unknown [id number] 2.16.840.1.662644.3.579.2. 593 1947 Unknown [id number] 2.16.840.1.172686.3.579.2. 593 1947 Unknown [id number] 2.16.840.1.335722.3.579.2. 593 1947 Unknown [id number] 2.16.840.1.846118.3.579.2. 718 1947 Unknown [id number] 2.16.840.1.166827.3.579.2. 1286 1947 Unknown [id number] 2.16.840.1.719681.3.579.2. 1286 1947 Unknown [id number] 2.16.840.1.917864.3.579.2. 1286 1947 Unknown [id number] 2.16.840.1.999682.3.579.2. 1259 1947 Unknown [id number] 2.16.840.1.624019.3.579.2. 1259 1947 Unknown [id number] 2.16.840.1.754730.3.579.2. 1259 1947 Unknown [id number] 2.16.840.1.488148.3.579.2. 1259 1947 Unknown [id number] 2.16.840.1.455079.3.579.2. 1259 1947 Unknown [id number] 2.16.840.1.935807.3.579.2. 1259 1947 Unknown [id number] 2.16.840.1.104262.3.579.2. 1259 1947 Unknown [id number] 2.16.840.1.374524.3.579.2. 1259 Medicaid Medicaid [id number] Medicare Medicare [id number] Unknown [id number] 2.16.840.1.353615.3.579.2. 531 Unknown [id number] 2.16.840.1.210483.3.579.2. 531 Worker's Compensation [id number] Social History Date Type Detail Facility Start: 01-31-2023 End: 03-20-2023 Tobacco smoking status NHIS Never smoked tobacco [facility] Start: 01-31-2023 End: 03-20-2023 Tobacco use and exposure Smokeless tobacco non-user [facility] Start: 11-05-2023 End: 10-13-2024 Alcohol intake Ex-drinker (finding) [facility] Start: 09-17-2023 End: 04-14-2024 History of Social function [facility] Start: 09-17-2023 End: 04-14-2024 Tobacco use panel [facility] Start: 03-15-2023 Alcohol Comment Caffeine Intak e: more then 4 cups/day [facility] Start: 1945 Sex Assigned At Not on file [facility] Start: 1945 Sex Assigned At Female F [facility] Start: 04-01-2024 Alcoholic beverage intake Lifetime non-drinker (finding) [facility] Childcare Unknown [facility] Clinical Notes 11-05-2023 to 10-13-2024 Pamela Moore NP - 10/13/2024 10:03 AM SHANICE NERI - 10/13/2024 9:40 AM Donell Moore NP - 10/13/2024 9:40 AM Donell Moore NP - 10/13/2024 6:48 AM ESTPatient Instructions Note Date & Type Note Facility 10-13-2024 History of Presen t illness Narrative Associated Problem(s): LORI (generalized anxiety disorder) ([facility]) Will be referred to counseling: [facility] OLRI 7 score= 1, 10/14/24 PHQ 9 score= 2, 10/14/24 Does not want meds Will need to find counselor that takes medicare Pt brought in wrist BP device: left wrist 174/90 67 heart rate 2nd reading after my 2nd readin/88 Images from the original note were not included. Bernard Ponce is a 78 y.o. female presents with chief complaint of Hypertension and Anxiety HPI: Home BP reads: 130/70's Office reads: 188/82 right, wrist cuff was 154/88 ... Left arm: 162/60 and wrist cuff 174/90 Most home reads: 130/70's Hypertension This is a recurrent problem. The current episode started more than 1 month ago. Associated symptoms include anxiety. Pertinent negatives include no chest pain, headaches, neck pain, orthopnea, palpitations, peripheral edema or shortness of breath. There are no associated agents to hypertension. Risk factors for coronary artery disease include sedentary lifestyle and post-menopausal state. Past treatments include nothing. There are no compliance problems. Anxiety Presents for follow-up visit. Symptoms include excessive worry and nervous/anxious behavior. Patient reports no chest pain, dizziness, nausea, palpitations, shortness of breath or suicidal ideas. Symptoms occur constantly. SUBJECTIVE: MEDICATIONS: Current Outpatient Medications Medication Instructions albuterol HFA 90 mcg/act inhaler 2 puffs, Inhalation, Every 6 hours PRN alendronate (FOSAMAX) 70 mg, Oral, Every 7 days atorvastatin (LIPITOR) 20 mg, Oral, Nightly benzonatate (TESSALON) 100 mg, 3 times daily PRN cholecalciferol (VITAMIN D-3) 2,000 Units, Daily fluticasone (Flonase) 50 MCG/ACT nasal spray 2 sprays, Each Nostril, Daily levothyroxine (SYNTHROID) 25 mcg, Oral, Daily before breakfast loratadine (CLARITIN REDITABS) 10 mg, Daily Multiple Vitamin (MULTIVITAMIN ADULT PO) Multivitamin omega-3 (fish oil) 1000 MG capsule 1 capsule, Every 24 hours ALLERGIES: Allergies Allergen Reactions Ampicillin Hives REVIEW OF SYMPTOMS: Review of Systems Constitutional: Negative for appetite change, chills and fever. HENT: Negative for congestion, ear pain and sore throat. Eyes: Negative for pain, discharge, redness and visual disturbance. Respiratory: Negative for cough, shortness of breath and wheezing. Cardiovascular: Negative for chest pain, palpitations, orthopnea and leg swelling. Gastrointestinal: Negative for abdominal pain, blood in stool, constipation, diarrhea, nausea and vomiting. Genitourinary: Negative for difficulty urinating, dysuria and frequency. Musculoskeletal: Negative for arthralgias, back pain, joint swelling, myalgias and neck pain. Skin: Negative for rash and wound. Neurological: Negative for dizziness, tremors, seizures, syncope and headaches. Psychiatric/Behavioral: Negative for behavioral problems, self-injury and suicidal ideas. The patient is nervous/anxious. Hematological: Does not bruise/bleed easily. Endocrine: [...] father and mother. OBJECTIVE: Visit Vitals BP 162/60 (BP Location: Left arm, Patient Position: Sitting, BP Cuff Size: Large adult) Pulse 66 Resp 18 Ht 5' 1 Wt 157 lb 12.8 oz SpO2 99% BMI 29.82 kg/m Smoking Status Never BSA 1.76 m [...] neck supple. Lymphadenopathy: Cervical: No cervical adenopathy. Skin: General: Skin is warm and dry. Capillary Refill: Capillary refill takes 2 to 3 seconds. Findings: No rash. Neurological: General: No focal deficit present. Mental Status: She is alert and oriented to person, place, and time. Psychiatric: Mood and Affect: Mood normal. Behavior: Behavior normal. Thought Content: Thought content normal. Judgment: Judgment normal. Comments: Sl anxious ASSESSMENT AND PLAN: No follow-ups on file. Associated Problem(s): Hypothyroidism (acquired) (CMS/[facility]) Is currently taking 25mcg daily Current TSH 4.68 10/16 Does report heart palpitations at 50 mcg, but will be willing to try again Check labs yearly and prn dose changes Associated Problem(s): Class 1 obesity due to [...] sodas, juices, and sugary drinks. Associated Problem(s): GERD (gastroesophageal reflux disease) Recommendations: [...] breath, swelling legs Recommend slow position changes Difference with home and office reads would lend itself to possible [place] Hypertension, also I believe that anxiety is also a component here too documented in this encounter [facility] 10-13-2024 Instructions Pamela Moore NP - 10/13/2024 9:40 AM EST We will refer you to counseling services for anxiety Call me after 4 weeks on new thyroid dose documented in this encounter [facility] 08-18-2024 History of Presen t illness Narrative [...] in 8 weeks documented in this encounter [facility] 08-18-2024 Instructions Pamela Moore NP - 08/18/2024 9:40 AM EST Check blood pressure twice a day and record it When you come back in 8 weeks bring readings AND BP machines with you so we can verify if they are accurate documented in this encounter [facility] 07-07-2024 History of Presen t illness Narrative [...] trax vaginitis, suspect BV,will await culture [facility] [id number] Exp: 09/21/24 [id number] Images from the original note were not [...] 3 times daily PRN cholecalciferol 50 MCG (1999 UT) tablet 2,000 international units once a [...] nursing note reviewed. Exam conducted with a drawer in jacquard loom present. Constitutional: General: She is not in [...] List Items Addressed This Visit Hypothyroidism (acquired) ([facility]) Relevant Medications levothyroxine (Synthroid, Levoxyl) 50 MCG tablet Encounter for well woman exam with routine gynecological exam - Primary BSE info Diet, exercise Fu as per PAP indication Relevant Orders THIN PREP TIS PAP AND HR HPV DNA Vaginal discharge Health trax vaginitis, suspect BV,will await culture [id number] [id number] Exp: 09/21/24 [id number] Relevant Orders VAGINITIS (HTRX) Pelvic pain D/t limitation of bimanual exam and pt pain bilat adenexal region Will order pelvic US No family hx of cervical/ovarian/uterine cancer Relevant Orders US pelvis transvaginal documented in this encounter [facility] 06-10-2024 History of Presen t illness Narrative Associated Problem(s): Pre-diabetes Recommend weight loss, exercises, and cutting back on carbs/sugary foods Associated Problem(s): Hypothyroidism (acquired) (CMS/HCC) Is currently taking 25mcg daily Will recheck labs toward end of the year Associated Problem(s): Diverticulosis of large intestine without hemorrhage Has some mild tenderness to LLQ likely related to above diagnosis Also has not had well women exam, will have her come back for a well women for pelvic examination to further evaluate the source of her pain Associated Problem(s): Primary hypertension (CMS/HCC) I have reviewed her reads at home, they are averaging 150/70's. I cannot force her to take medications. We talked about her blood pressure in the context of pre diabetes as well as hyperlipidemia as well and the recommendation to start meds. She respectfully declines and wants to try to improve her health through diet and weight loss Fu in 3 months for this Ald. Sodium 70mg refill Images from the original note were not included. Bernard Ponce is a 78 y.o. female presents with chief complaint of No chief complaint on file. HPI: Here for a blood pressure check: At last visit we had spoke about her elevated blood pressure in the office. Her home reads are 150/70's. She does not want to take a medication for blood pressure. She also would like to stop taking her cholesterol medication as well. She has been having some heart palpitations and she spoke to the pharmacist who advised her to cut the pill in half, which she reports has helped her and she feels much better. She just does not really like having to take meds and is really interested in trying to improve her chronic health conditions without the use of medications. SUBJECTIVE: MEDICATIONS: Current Outpatient Medications Medication Instructions albuterol HFA 90 mcg/act inhaler 2 puffs, Inhalation, Every 6 hours PRN alendronate (FOSAMAX) 70 mg, Oral, Every 7 days atorvastatin (LIPITOR) 20 mg, Oral, Daily benzonatate (TESSALON) 100 mg, Oral, 3 times daily PRN cholecalciferol 50 MCG (2000 UT) tablet 2,000 international units once a day fluticasone (Flonase) 50 MCG/ACT nasal spray 1 spray, Each Nostril, Daily furosemide (LASIX) 20 mg, Oral, As needed levothyroxine (SYNTHROID, LEVOXYL) 50 mcg, Oral, Daily before breakfast loratadine (CLARITIN REDITABS) 10 mg, Oral, Daily, Pt taking OTC allergy relief 24hr 1 daily meclizine (Antivert) 25 MG tablet 1 tablet, Oral, 4 times daily PRN Multiple Vitamin (MULTIVITAMIN ADULT PO) Multivitamin omega-3 (fish oil) 1000 MG capsule 1 capsule, Oral, Every 24 hours Papaya 100 MG tablet Papaya Vitamin D3 50 mcg, Oral, Daily, Pt is taking OTC () ALLERGIES: Allergies Allergen Reactions Ampicillin Hives REVIEW OF SYMPTOMS: Review of Systems Constitutional: Negative for appetite change, chills and fever. HENT: Negative for congestion, ear pain and sore throat. Eyes: Negative for pain, discharge, redness and visual disturbance. Respiratory: Negative for cough, shortness of breath and wheezing. Cardiovascular: Negative for chest pain, palpitations and leg swelling. Gastrointestinal: Negative for abdominal pain (LLQ), blood in stool, constipation, diarrhea, nausea and vomiting. Genitourinary: Negative for difficulty urinating, dysuria and frequency. Musculoskeletal: Negative for arthralgias, back pain, joint swelling and myalgias. Skin: [...] her father and mother. OBJECTIVE: Visit Vitals Temp 98.5 F (Temporal) Wt 157 lb 3.2 oz BMI 29.70 kg/m Smoking Status Never BSA 1.75 m Physical Exam Vitals and nursing note [...] no mass. Tenderness: There is no abdominal tenderness (mild tenderness). Musculoskeletal: General: Normal range of motion. Cervical back: Normal range of motion and neck supple. Right lower leg: No edema. Left lower leg: No edema. Skin: General: Skin is warm and dry. [...] Addressed This Visit GERD (gastroesophageal reflux disease) Relevant Orders CBC and differential Vitamin D deficiency Relevant Orders Comprehensive metabolic panel Pre-diabetes Recommend weight loss, exercises, and cutting back on carbs/sugary foods Relevant Orders Comprehensive metabolic panel Hyperlipidemia (CMS/HCC) Relevant Orders Comprehensive metabolic panel Lipid panel Vitamin D 25 hydroxy Hypothyroidism (acquired) (CMS/HCC) Is currently taking 25mcg daily Will recheck labs toward end of the year Relevant Orders Comprehensive metabolic panel TSH T4, free T3, free Primary hypertension (CMS/HCC) - Primary I have reviewed her reads at home, they are averaging 150/70's. I cannot force her to take medications. We talked about her blood pressure in the context of pre diabetes as well as hyperlipidemia as well and the recommendation to start meds. She respectfully declines and wants to try to improve her health through diet and weight loss Fu in 3 months for this Relevant Orders Comprehensive metabolic panel Urinalysis with reflex microscopic (clean catch) documented in this encounter [facility] 04-01-2024 History of Presen t illness Narrative Bernard Ponce 1945 Chief Complaint: Bernard Ponce had concerns including Eye Exam. HPI Eye Exam In both eyes. Comments This is an established patient presenting for complete eye exam. Patient reports no vision change. The patient is using Blink BID OU Patient does want a refraction today Last edited by Renetta Mccoy on 04/01/2024 10:54 AM. ROS Positive for: Eyes Negative for: Constitutional, Gastrointestinal, Neurological, Skin, Genitourinary, Musculoskeletal, HENT, Endocrine, Cardiovascular, Respiratory, Psychiatric, Allergic/Imm, Heme/Lymph Last edited by Rahel Pike on 04/01/2024 9:53 AM. No current outpatient medications on file. (Ophthalmic Drugs) No current facility-administered medications for this visit. (Ophthalmic Drugs) Current Outpatient Medications (Other) Medication Sig acetaminophen (TYLENOL ARTHRITIS) 650 mg 8 hr tablet albuterol (PROVENTIL HFA;VENTOLIN HFA) 90 mcg/actuation inhaler Inhale 2 puffs. alendronate (FOSAMAX) 70 mg tablet Take 1 tablet (70 mg total) by mouth once a week. atorvastatin (LIPITOR) 20 mg tablet Take 1 tablet (20 mg total) by mouth in the morning. cholecalciferol, vitamin D3, 2,000 units tablet Take 1 tablet (2,000 Units total) by mouth in the morning. fluticasone propionate (FLONASE) 50 mcg/actuation nasal spray Instill 2 sprays IN EACH NOSTRIL DAILY levothyroxine (SYNTHROID, LEVOTHROID) 50 MCG tablet Take 1 tablet (50 mcg total) by mouth in the morning. loratadine (CLARITIN) 10 mg tablet Take 1 tablet (10 mg total) by mouth in the morning. MULTIVITAMIN ORAL Take by mouth. acetaminophen-codeine (TYLENOL #3) 300-30 mg per tablet TAKE 1 TABLET BY MOUTH EVERY 6 HOURS NEEDED for moderate pain for up to 3 days (Patient not taking: Reported on 04/01/2024) cetirizine (ZyrTEC) 10 mg tablet Take 1 tablet (10 mg total) by mouth in the morning. (Patient not taking: Reported on 04/01/2024) docosahexaenoic acid-epa 120-180 mg capsule Take 1 capsule by mouth. (Patient not taking: Reported on 04/01/2024) furosemide (LASIX) 20 mg tablet Take 1 tablet (20 mg total) by mouth. (Patient not taking: Reported on 04/01/2024) naproxen sodium (ALEVE) 220 mg tablet Take 220 mg by mouth. (Patient not taking: Reported on 03/18/2022) simvastatin (ZOCOR) 40 mg tablet Take 40 mg by mouth nightly. (Patient not taking: Reported on 03/18/2022) sodium,potassium,mag sulfates (SUPREP BOWEL PREP KIT) 17.5-3.13-1.6 gram recon soln 177 ml,actual weight, 2 times daily, Oral (Patient not taking: Reported on 03/18/2022) No current facility-administered medications for this visit. (Other) Ms. 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 She has a past surgical history that includes Knee surgery (Left, 1978); Knee surgery (Left, 2016); Carpal tunnel release (Bilateral, 2013); Colonoscopy (2010); and Eye surgery (Left, 12/25/2006). Base Eye Exam Visual Acuity (Snellen - Linear) Right Left Both Dist cc 20/25 +2 20/20 20/20 Near cc J1 J1+ J1+ Correction: Glasses Patient Rx glasses is for distance Tonometry (Applanation, 10:56 AM) Right Left Pressure 19 19 Pupils Pupils Right PERRL Left PERRL Visual [place] Right Left Full Full C20 results normal OU Extraocular Movement Right Left Full, Ortho Full, Ortho Neuro/Psych Oriented x3: Yes Mood/Affect: Normal Dilation Both eyes: 1.0% Tropicamide @ 10:56 AM Additional Tests Keratometry (Automated) K1 Daven[place] K2 [place] Right 43.75 059 44.75 149 Left 43.75 121 44.75 031 Slit Lamp and Fundus Exam External Exam Right Left External Normal Normal Slit Lamp Exam Right Left Lids/Lashes Normal Normal Conjunctiva/Sclera 1-2+ Papilla 1-2+ Papilla Cornea Decreased tear film Decreased tear film Anterior Chamber Deep and quiet Deep and quiet Iris Round and reactive Round and reactive Lens 3+ Nuclear sclerosis 3+ Nuclear sclerosis Fundus Exam Right Left Vitreous Posterior vitreous detachment Posterior vitreous detachment Disc Normal Normal C/D Ratio Vertical 0.2 0.2 C/D Ratio Horizontal 0.2 0.2 Macula Normal Mottling Vessels Normal Normal Periphery Normal Normal Refraction Wearing Rx Sphere Cylinder Dav[place] Right -2.50 +1.00 160 Left -3.50 +1.25 030 Age: 4yrs Type: SVL-distance Manifest Refraction (Auto) Sphere Cylinder [place] Dist VA Add Near VA Right -2.50 +1.50 156 Left -3.50 +1.25 025 Manifest Refraction #2 Sphere Cylinder [place] Dist VA Add Near VA Right -2.50 +1.25 160 20/20 +2.50 J1+ Left -3.50 +1.25 020 20/20 +2.50 J1+ Final Rx Sphere Cylinder [place] Dist VA Add Near VA Right -2.50 +1.25 160 20/20 +2.50 J1+ Left -3.50 +1.25 020 20/20 +2.50 J1+ Expiration Date: 04/01/2026 Orders: No orders of the defined types were placed in this encounter. Assessment/Plan: 1. Presbyopia 2. Myopia of both eyes 3. Regular astigmatism of both eyes 4. Age-related nuclear cataract of both eyes 5. Dry eye syndrome of bilateral lacrimal glands Updated glasses Rx given to patient today. Advised patient to increase the use of AT's and recommend adding gel drops OU QHS. The patients cataracts are not causing enough difficulties in daily life for surgery. Follow for now. No retinal breaks or vitreous abnormalities on dilated exam today. Return Visit: Return for 1 year complete exam. Physician: LONG BOLIVAR OD Scribe Statement: Scribed for and in the presence of Long Bolivar OD by Renetta Mccoy Doctor Statement: ILong OD personally performed the services described in the documentation, as scribed by Renetta Mccoy in my presence. documented in this encounter [facility] 11-05-2023 History of Presen t illness Narrative Associated Problem(s): Chronic left shoulder pain Will refer to Dr De La Fuente in [place] per pt request Associated Problem(s): Encounter for [...] refer to Dr De La Fuente in [place] per pt request Relevant Orders Ambulatory referral to Orthopaedic Surgery documented in this encounter [facility] Healthcare Evaluation note Diagnosis Gastroesophageal reflux disease, [...] Status Primary osteoarthritis of left shoulder acute [facility] Work Phone: Evaluation note* Diagnosis Onset Date Resolution Status Primary osteoarthritis of left shoulder acute Primary osteoarthritis, right shoulder acute Rotator cuff syndrome of right shoulder acute [facility] Work Phone: Evaluation note* Diagnosis Hyperlipidemia, unspecified (CMS/HCC) documented in this encounter [facility]* Diagnosis Gastroesophageal reflux disease, unspecified [...] Age related osteoporosis, unspecified pathological fracture presence ([facility] Hyperlipidemia, unspecified ([facility]) Pre-diabetes Other abnormal glucose Obesity (BMI 30-39.9) Hypothyroidism (acquired) ([facility]) Unspecified hypothyroidism Chronic osteoarthritis Osteoarthrosis, unspecified whether generalized or localized, unspecified site Elevated blood pressure reading Elevated blood pressure reading without diagnosis of hypertension Primary hypertension ([facility])- Primary Unspecified essential hypertension Obesity (BMI 30-39.9) LORI (generalized anxiety disorder) ([facility]) Generalized anxiety disorder Primary hypertension ([facility])- Primary Unspecified essential hypertension Gastroesophageal reflux disease, unspecified whether esophagitis present Vitamin D deficiency Pre-diabetes Other abnormal glucose Hypothyroidism (acquired) ([facility]) Unspecified hypothyroidism Mixed hyperlipidemia ([facility]) Mixed hyperlipidemia Encounter for well woman exam with routine gynecological exam- Primary Hypothyroidism (acquired) ([facility]) Unspecified hypothyroidism Vaginal discharge Leukorrhea, not specified as infective Pelvic pain documented in this encounter [facility] HealthcareEvaluation note* Diagnosis Gastroesophageal reflux disease, unspecified whether esophagitis present- Primary Age related osteoporosis, unspecified pathological fracture presence ([facility]) Vitamin D deficiency Pre-diabetes Other abnormal glucose Hypothyroidism (acquired) ([facility]) Unspecified hypothyroidism Mixed hyperlipidemia ([facility]) Mixed hyperlipidemia Encounter for screening mammogram for [...] Age related osteoporosis, unspecified pathological fracture presence ([facility]) Hyperlipidemia, unspecified ([facility]) Pre-diabetes Other abnormal glucose Obesity (BMI 30-39.9) Hypothyroidism (acquired) ([facility]) Unspecified hypothyroidism Chronic osteoarthritis Osteoarthrosis, unspecified whether generalized or localized, unspecified site Elevated blood pressure reading Elevated blood pressure reading without diagnosis of hypertension Primary hypertension ([facility])- Primary Unspecified essential hypertension Obesity (BMI 30-39.9) LORI (generalized anxiety disorder) ([facility] Generalized anxiety disorder Primary hypertension ([facility])- Primary Unspecified essential hypertension Gastroesophageal reflux disease, unspecified whether esophagitis present Vitamin D deficiency Pre-diabetes Other abnormal glucose Hypothyroidism (acquired) ([facility]) Unspecified hypothyroidism Mixed hyperlipidemia ([facility]) Mixed hyperlipidemia Encounter for well woman exam with routine gynecological exam- Primary Hypothyroidism (acquired) ([facility]) Unspecified hypothyroidism Vaginal discharge Leukorrhea, not specified as infective Pelvic pain Hypothyroidism (acquired) ([facility])- Primary Unspecified hypothyroidism documented in this encounter [facility] HealthcareEvaluation note* Diagnosis Gastroesophageal reflux disease, unspecified whether esophagitis present- Primary Age related osteoporosis, unspecified pathological fracture presence ([facility]) Vitamin D deficiency Pre-diabetes Other abnormal glucose Hypothyroidism (acquired) ([facility]) Unspecified hypothyroidism Mixed hyperlipidemia ([facility]) Mixed hyperlipidemia Encounter for screening mammogram for [...] Age related osteoporosis, unspecified pathological fracture presence ([facility]) Hyperlipidemia, unspecified ([facility]) Pre-diabetes Other abnormal glucose Obesity (BMI 30-39.9) Hypothyroidism (acquired) ([facility]) Unspecified hypothyroidism Chronic osteoarthritis Osteoarthrosis, unspecified whether generalized or localized, unspecified site Elevated blood pressure reading Elevated blood pressure reading without diagnosis of hypertension Primary hypertension ([facility])- Primary Unspecified essential hypertension Obesity (BMI 30-39.9) LORI (generalized anxiety disorder) ([facility]) Generalized anxiety disorder Primary hypertension ([facility])- Primary Unspecified essential hypertension Gastroesophageal reflux disease, unspecified whether esophagitis present Vitamin D deficiency Pre-diabetes Other abnormal glucose Hypothyroidism (acquired) ([facility]) Unspecified hypothyroidism Mixed hyperlipidemia ([facility]) Mixed hyperlipidemia Encounter for well woman exam with routine gynecological exam- Primary Hypothyroidism (acquired) ([facility]) Unspecified hypothyroidism Vaginal discharge Leukorrhea, not specified as infective Pelvic pain Primary hypertension ([facility])- Primary Unspecified essential hypertension Pelvic pain Gastroesophageal reflux disease, unspecified whether esophagitis present Obesity (BMI 30-39.9) Vitamin D deficiency Class 1 obesity due to excess calories without serious comorbidity with body mass index (BMI) of 30.0 to 30.9 in adult documented in this encounter [facility] HealthcareEvaluation note* Diagnosis Gastroesophageal reflux disease, unspecified whether esophagitis present- Primary Age related osteoporosis, unspecified pathological fracture presence ([facility]) Vitamin D deficiency Pre-diabetes Other abnormal glucose Hypothyroidism (acquired) ([facility]) Unspecified hypothyroidism Mixed hyperlipidemia ([facility]) Mixed hyperlipidemia Encounter for screening mammogram for [...] Age related osteoporosis, unspecified pathological fracture presence ([facility]) Hyperlipidemia, unspecified ([facility]) Pre-diabetes Other abnormal glucose Obesity (BMI 30-39.9) Hypothyroidism (acquired) ([facility]) Unspecified hypothyroidism Chronic osteoarthritis Osteoarthrosis, unspecified whether generalized or localized, unspecified site Elevated blood pressure reading Elevated blood pressure reading without diagnosis of hypertension Primary hypertension ([facility])- Primary Unspecified essential hypertension Obesity (BMI 30-39.9) LORI (generalized anxiety disorder) ([facility]) Generalized anxiety disorder Primary hypertension ([facility])- Primary Unspecified essential hypertension Gastroesophageal reflux disease, unspecified whether esophagitis present Vitamin D deficiency Pre-diabetes Other abnormal glucose Hypothyroidism (acquired) ([facility]) Unspecified hypothyroidism Mixed hyperlipidemia ([facility]) Mixed hyperlipidemia Encounter for well woman exam with routine gynecological exam- Primary Hypothyroidism (acquired) ([facility]) Unspecified hypothyroidism Vaginal discharge Leukorrhea, not specified as infective Pelvic pain Primary hypertension ([facility])- Primary Unspecified essential hypertension Pelvic pain Gastroesophageal reflux disease, unspecified whether esophagitis present Obesity (BMI 30-39.9) Vitamin D deficiency Class 1 obesity due to excess calories without serious comorbidity with body mass index (BMI) of 30.0 to 30.9 in adult Hyperglycemia- Primary Other abnormal glucose documented in this encounter [facility] HealthcareEvaluation note* Diagnosis Gastroesophageal reflux disease, unspecified whether esophagitis present- Primary Age related osteoporosis, unspecified pathological fracture presence ([facility]) Vitamin D deficiency Pre-diabetes Other abnormal glucose Hypothyroidism (acquired) ([facility]) Unspecified hypothyroidism Mixed hyperlipidemia ([facility]) Mixed hyperlipidemia Encounter for screening mammogram for [...] Age related osteoporosis, unspecified pathological fracture presence ([facility]) Hyperlipidemia, unspecified ([facility]) Pre-diabetes Other abnormal glucose Obesity (BMI 30-39.9) Hypothyroidism (acquired) ([facility]) Unspecified hypothyroidism Chronic osteoarthritis Osteoarthrosis, unspecified whether generalized or localized, unspecified site Elevated blood pressure reading Elevated blood pressure reading without diagnosis of hypertension Primary hypertension ([facility])- Primary Unspecified essential hypertension Obesity (BMI 30-39.9) LORI (generalized anxiety disorder) ([facility] Generalized anxiety disorder Primary hypertension ([facility])- Primary Unspecified essential hypertension Gastroesophageal reflux disease, unspecified whether esophagitis present Vitamin D deficiency Pre-diabetes Other abnormal glucose Hypothyroidism (acquired) ([facility]) Unspecified hypothyroidism Mixed hyperlipidemia ([facility]) Mixed hyperlipidemia Encounter for well woman exam with routine gynecological exam- Primary Hypothyroidism (acquired) ([facility]) Unspecified hypothyroidism Vaginal discharge Leukorrhea, not specified as infective Pelvic pain Primary hypertension ([facility])- Primary Unspecified essential hypertension Pelvic pain Gastroesophageal reflux disease, unspecified whether esophagitis present Obesity (BMI 30-39.9) Vitamin D deficiency Class 1 obesity due to excess calories without serious comorbidity with body mass index (BMI) of 30.0 to 30.9 in adult Allergic rhinitis, unspecified seasonality, unspecified trigger- Primary Acute bronchitis, unspecified Age related osteoporosis, unspecified pathological fracture presence ([facility]) documented in this encounter [facility]* Diagnosis Age related osteoporosis, unspecified pathological fracture presence ([facility]) documented in this encounter [facility]* Diagnosis Primary hypertension ([facility])- Primary Unspecified essential hypertension Gastroesophageal reflux disease, unspecified whether esophagitis present Vitamin D deficiency Pre-diabetes Other abnormal glucose Hypothyroidism (acquired) ([facility]) Unspecified hypothyroidism Mixed hyperlipidemia ([facility]) Mixed hyperlipidemia documented in this encounter [facility] HealthcareEvaluation [facility]* Diagnosis Gastroesophageal reflux disease, unspecified whether esophagitis present- Primary Age related osteoporosis, unspecified pathological fracture presence ([facility]) Vitamin D deficiency Pre-diabetes Other abnormal glucose Hypothyroidism (acquired) ([facility]) Unspecified hypothyroidism Mixed hyperlipidemia ([facility]) Mixed hyperlipidemia Encounter for screening mammogram for [...] Age related osteoporosis, unspecified pathological fracture presence ([facility]) Hyperlipidemia, unspecified ([facility]) Pre-diabetes Other abnormal glucose Obesity (BMI 30-39.9) Hypothyroidism (acquired) ([facility]) Unspecified hypothyroidism Chronic osteoarthritis Osteoarthrosis, unspecified whether generalized or localized, unspecified site Elevated blood pressure reading Elevated blood pressure reading without diagnosis of hypertension Primary hypertension ([facility])- Primary Unspecified essential hypertension Obesity (BMI 30-39.9) LORI (generalized anxiety disorder) ([facility]) Generalized anxiety disorder Primary hypertension ([facility])- Primary Unspecified essential hypertension Gastroesophageal reflux disease, unspecified whether esophagitis present Vitamin D deficiency Pre-diabetes Other abnormal glucose Hypothyroidism (acquired) ([facility]) Unspecified hypothyroidism Mixed hyperlipidemia ([facility]) Mixed hyperlipidemia Encounter for well woman exam with routine gynecological exam- Primary Hypothyroidism (acquired) ([facility]) Unspecified hypothyroidism Vaginal discharge Leukorrhea, not specified as infective Pelvic pain Primary hypertension ([facility])- Primary Unspecified essential hypertension Pelvic pain Gastroesophageal reflux disease, unspecified whether esophagitis present Obesity (BMI 30-39.9) Vitamin D deficiency Class 1 obesity due to excess calories without serious comorbidity with body mass index (BMI) of 30.0 to 30.9 in adult Hypothyroidism (acquired) ([facility])- Primary Unspecified hypothyroidism documented in this encounter [facility]Evaluation [facility]* Diagnosis Gastroesophageal reflux disease, unspecified whether esophagitis present- Primary Age related osteoporosis, unspecified pathological fracture presence ([facility]) Vitamin D deficiency Pre-diabetes Other abnormal glucose Hypothyroidism (acquired) ([facility]) Unspecified hypothyroidism Mixed hyperlipidemia ([facility]) Mixed hyperlipidemia Encounter for screening mammogram for [...] Age related osteoporosis, unspecified pathological fracture presence ([facility]) Hyperlipidemia, unspecified ([facility]) Pre-diabetes Other abnormal glucose Obesity (BMI 30-39.9) Hypothyroidism (acquired) ([facility]) Unspecified hypothyroidism Chronic osteoarthritis Osteoarthrosis, unspecified whether generalized or localized, unspecified site Elevated blood pressure reading Elevated blood pressure reading without diagnosis of hypertension Primary hypertension ([facility])- Primary Unspecified essential hypertension Obesity (BMI 30-39.9) LORI (generalized anxiety disorder) ([facility]) Generalized anxiety disorder Primary hypertension ([facility])- Primary Unspecified essential hypertension Gastroesophageal reflux disease, unspecified whether esophagitis present Vitamin D deficiency Pre-diabetes Other abnormal glucose Hypothyroidism (acquired) ([facility]) Unspecified hypothyroidism Mixed hyperlipidemia ([facility]) Mixed hyperlipidemia Encounter for well woman exam with routine gynecological exam- Primary Hypothyroidism (acquired) ([facility]) Unspecified hypothyroidism Vaginal discharge Leukorrhea, not specified as infective Pelvic pain Primary hypertension ([facility])- Primary Unspecified essential hypertension Pelvic pain Gastroesophageal reflux disease, unspecified whether esophagitis present Obesity (BMI 30-39.9) Vitamin D deficiency Class 1 obesity due to excess calories without serious comorbidity with body mass index (BMI) of 30.0 to 30.9 in adult Primary hypertension ([facility])- Primary Unspecified essential hypertension Class 1 obesity due to excess calories without serious comorbidity with body mass index (BMI) of 30.0 to 30.9 in adult Hypothyroidism (acquired) ([facility]) Unspecified hypothyroidism LORI (generalized anxiety disorder) ([facility]) Generalized anxiety disorder documented in this encounter [facility]* Diagnosis Presbyopia- Primary Myopia of both eyes Regular astigmatism of both eyes Age-related nuclear cataract of both eyes Dry eye syndrome of bilateral lacrimal glands [facility] Diagnosis Gastroesophageal reflux disease, unspecified whether esophagitis present- Primary Age related osteoporosis, unspecified pathological fracture presence ([facility]) Vitamin D deficiency Pre-diabetes Other abnormal glucose Hypothyroidism (acquired) ([facility]) Unspecified hypothyroidism Mixed hyperlipidemia ([facility]) Mixed hyperlipidemia Encounter for screening mammogram for [...] Age related osteoporosis, unspecified pathological fracture presence ([facility] [facility]) Hyperlipidemia, unspecified ([facility]) Pre-diabetes Other abnormal glucose Obesity (BMI 30-39.9) Hypothyroidism (acquired) ([facility]) Unspecified hypothyroidism Chronic osteoarthritis Osteoarthrosis, unspecified whether generalized or localized, unspecified site Elevated blood pressure reading Elevated blood pressure reading without diagnosis of hypertension Primary hypertension ([facility])- Primary Unspecified essential hypertension Obesity (BMI 30-39.9) LORI (generalized anxiety disorder) ([facility]) Generalized anxiety disorder Primary hypertension ([facility])- Primary Unspecified essential hypertension Gastroesophageal reflux disease, unspecified whether esophagitis present Vitamin D deficiency Pre-diabetes Other abnormal glucose Hypothyroidism (acquired) ([facility]) Unspecified hypothyroidism Mixed hyperlipidemia ([facility]) Mixed hyperlipidemia Encounter for well woman exam with routine gynecological exam- Primary Hypothyroidism (acquired) ([facility]) Unspecified hypothyroidism Vaginal discharge Leukorrhea, not specified as infective Pelvic pain Primary hypertension ([facility])- Primary Unspecified essential hypertension Pelvic pain Gastroesophageal reflux disease, unspecified whether esophagitis present Obesity (BMI 30-39.9) Vitamin D deficiency Class 1 obesity due to excess calories without serious comorbidity with body mass index (BMI) of 30.0 to 30.9 in adult LORI (generalized anxiety disorder) ([facility])- Primary Generalized anxiety disorder Primary hypertension ([facility]) Unspecified essential hypertension Class 1 obesity due to excess calories without serious comorbidity with body mass index (BMI) of 30.0 to 30.9 in adult Hypothyroidism (acquired) ([facility]) Unspecified hypothyroidism Age related osteoporosis, unspecified pathological fracture presence ([facility]) Hyperlipidemia, unspecified ([facility]) documented in this encounter [facility]* Attachments The following attachments cannot be sent through Care Everywhere. * Dry eye (Estonian) * Cataracts (Estonian) * Presbyopia and refractive errors (Estonian) documented [facility] System[facility] for referral (narrative)* Consultation (Routine) - Pending Review Specialty Diagnoses / Procedures Referred By Lisa t Referred To Contact Orthopaedic Surgery Diagnoses Chronic left shoulder pain Pamela Moore NP [address] [place] [address] Ziggy De La Fuente MD 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 Reason for Visit Primary osteoarthrit is of left shoulder Primary osteoarthritis, right shoulder Rotator cuff syndrome of right shoulder Additional Source Comments INFORMATION SOURCE (unrecogn ized section and content) DATE CREATED AUTHOR [facility]06/2023 [facility] DATE CREATED AUTHOR AUTHOR'S ORGANIZ ATION 02/28/2023 [facility] DATE CREATED AUTHOR AUTHOR'S ORGANIZ ATION 01/22/2024 [facility] DATE CREATED AUTHOR AUTHOR'S ORGANIZ ATION 04/07/2024 [facility] DATE CREATED AUTHOR AUTHOR'S ORGANIZ ATION 05/01/2024 [facility] DATE CREATED AUTHOR AUTHOR'S ORGANIZ ATION 10/15/2024 [facility] EPIC Care Teams (unrecognized [...] Provider Active St art: April 29, 2024 Train Reservation Clerk Relationship Specialty Start Date End Date Jorge Goncalves MD [address] [place] [phone] PCP - General Family Medicine 11/05/23 Train Reservation Clerk Relationship Specialty Start Date End Date Jorge Goncalves MD [address] [place] [phone] PCP - General Family Medicine 11/05/23 Team [...] Provider Active St art: December 11, 2023 Train Reservation Clerk Relationship Specialty Start Date End Date Jorge Goncalves MD [address] [place] [phone] PCP - General Family Medicine 11/05/23 Pamela Moore NP [address] [place] [phone] PCP Opal Pham MA 04/22/24 Train Reservation Clerk Relationship Specialty Start Date End Date Jorge Goncalves MD [address] [place] [address] PCP - General Family Medicine 11/05/23 Pamela Moore NP [address] [place] [address] PCP Opal Pham MA 04/22/24 Train Reservation Clerk Relationship Specialty Start Date End Date Jorge Goncalves MD [address] [place] [address] PCP - General Family Medicine 11/05/23 Pamela Moore NP [address] [place] [address] PCP Opal Pham MA 04/22/24 Train Reservation Clerk Relationship Specialty Start Date End Date Pamela Moore NP [address] [place] [address] PCP Opal Pham MA 04/22/24 Unallocated, Nehemias Avina MD [address] [place] [address] PCP - General Family Medicine 07/07/24 Train Reservation Clerk Relationship Specialty Start Date End Date Pamela Moore NP [address] [place] [address] PCP Opal Pham MA 04/22/24 Unallocated, Nehemias Avina MD [address] [place] [address] PCP - General Family Medicine 07/07/24 Train Reservation Clerk Relationship Specialty Start Date End Date Pamela Moore NP [address] [place] [address] PCP - Ankit MURRY 04/22/24 Jorge Goncalves MD [address] [place] [address] PCP - General Family Medicine 07/22/24 Train Reservation Clerk Relationship Specialty Start Date End Date Pamela Moore NP [address] [place] [address] PCP - Ankit MURRY 04/22/24 Jorge Goncalves MD [address] [place] [address] PCP - General Family Medicine 07/22/24 Train Reservation Clerk Relationship Specialty Start Date End Date Pamela Moore NP [address] [place] [address] PCP - Ankit MURRY 04/22/24 Jorge Goncalves MD [address] [place] [address] PCP - General Family Medicine 07/22/24 Train Reservation Clerk Relationship Specialty Start Date End Date Pamela Moore NP [address] [place] [address] PCP - Ankit MURRY 04/22/24 Jorge Goncalves MD [address] [place] [address] PCP - General Family Medicine 07/22/24 Train Reservation Clerk Relationship Specialty Start Date End Date Pamela Moore NP [address] [place] [address] PCP - Ankit [place] 04/22/24 Jorge Goncalves MD [address] [place] [address] PCP - General Family Medicine 07/22/24 Train Reservation Clerk Relationship Specialty Start Date End Date Pamela Moore NP [address] [place] [address] PCP - Ankit [place] 04/22/24 Jorge Goncalves MD [address] [place] [address] PCP - General Family Medicine 07/22/24 Train Reservation Clerk Relationship Specialty Start Date End Date Jorge Goncalves MD [address] [place] [address] PCP - General Family Medicine 11/05/23 Pamela Moore NP [address] [place] [address] PCP - Ankit [place] 04/22/24 Train Reservation Clerk Relationship Specialty Start Date End Date Jorge Goncalves MD [address] [place] [address] PCP - General Family Medicine 11/05/23 Pamela Moore NP [address] [place] [address] PCP Opal Pham MA 04/22/24 Train Reservation Clerk Relationship Specialty Start Date End Date Jorge Goncalves MD [address] [place] [address] PCP - General Family Medicine 11/05/23 Pamela Moore NP [address] [place] [address] PCP Opal Pham MA 04/22/24 Train Reservation Clerk Relationship Specialty Start Date End Date Pamela Moore NP [address] [place] [address] PCP Opal Pham MA 04/22/24 Jorge Goncalves MD [address] [place] [address] PCP - General Family Medicine 07/22/24 Train Reservation Clerk Relationship Specialty Start Date End Date Pamela Moore NP [address] [place] [address] PCP Opal Pham MA 04/22/24 Jorge Goncalves MD [address] [place] [address] PCP - General Family Medicine 07/22/24 Train Reservation Clerk Relationship Specialty Start Date End Date Pamela Moore NP [address] [place] [address] PCP - Ankit MURRY 04/22/24 Jorge Goncalves MD [address] [place] [address] PCP - General Family Medicine 07/22/24 Train Reservation Clerk Relationship Specialty Start Date End Date Pamela Moore, PERSONNEL COORDINATOR-SOIL TECHNICIAN [address] [place] [address] PCP - General Nurse Practitioner 05/10/21 Train Reservation Clerk Relationship Specialty Start Date End Date Pamela Moore NP [address] [place] [address] PCP - Ankit MURRY 04/22/24 Jorge Goncalves MD [address] [place] [address] PCP - General Family Medicine 07/22/24 Train Reservation Clerk Relationship Specialty Start Date End Date Pamela Moore NP [address] [place] [address] PCP - Ankit MURRY 04/22/24 Jorge Goncalves MD [address] [place] [address] PCP - General Family Medicine 07/22/24 Goals (unrecognized section and content) Goals may be documented in a n alternate sectionGoals may be documented in an alternate sectionGoals may be documented in an alternate sectionGoals may be documented in an alternate sectionNot on filedocumented as of this encounter Reason for Visit (unrecogniz ed section and content) Reason Onset Date Comments Med Refill 06/24/2024 Reason Comments Hypertension Reason Comments Med Refill Reason Comments Hypertension Anxiety Reason Comments Eye Exam FOR RECORDS PERTAINING TO PATIENTS WHO ARE [...] BE BASED ON THE PRIMARY CLINICAL RECORDS. [employer] [facility]. provides no warranty or guarantee of the accuracy or completeness of information in this document.
== END 2025-01-05 09:23 | disposition home or self-care (01) ==
LOC: MAMMO 09:23
PROVIDERS: PCP Nurse Practitioner; Visit Provider Nurse Practitioner
DX: Z12.31 Encounter for screening mammogram for malignant neoplasm of breast (principal); Z80.3 Family history of malignant neoplasm of breast
CPT/HCPCS: 77063; 77067

== ENCOUNTER 2025-04-23 11:11 | Emergency (ER) | payer MEDICARE, SELFPAY ==
--- OUTSIDE RECORDS SUMMARY | 2025-04-13 10:30 | XMS_ITS | Encounter Summary ---
Author Organization [facility] Address [address] [place] [address] Care Team Providers Care Size Roller Operator Name Role Phone Pamela Moore NP Unavailable [phone] Jorge French MD Primary Care Provider [phone] Reason for Referral * Consultation (Routine) - Authorized Specialty Diagnoses / Procedures Referred By Lisa morgan Referred To Contact Podiatry Diagnoses Onychomycosis Procedures [place] OFFICE/OUTPATIENT NEW HIGH MDM 60 MINUTES Pamela Moore NP [address] [place] [address] Phone: tel: fax: Chaz Todd DPM [address] [place] [address] Phone: tel: fax: Referral ID Status Reason Start Date Expiration Date Visits Requested Visits Authorized [id number] Authorized Specialty Services Required 04/13/2025 10/10/2025 1 1 Reason for Visit * Reason Comments Medicare Annual Wellness Visit Initial Encounter Details Date Type Department Care Team (Late st Contact Info) Description 04/13/2025 10:30 AM EDT Office Visit [facility] [address] [place] [address] Pamela Moore NP [address] [place] [address] Encounter for subsequent annual wellness visit (AWV) in Medicare patient (Primary Dx); Primary hypertension ; Gastroesophageal reflux disease, unspecified whether esophagitis present; Age related osteoporosis, unspecified pathological fracture presence ; Pre-diabetes; Hypothyroidism (acquired) ; Class 1 obesity due to excess calories without serious comorbidity with body mass index (BMI) of 30.0 to 30.9 in adult; Mixed hyperlipidemia ; Hyperlipidemia, unspecified ; Diverticulitis; LORI (generalized anxiety disorder) ; Onychomycosis Social History Tobacco Use Types Packs/Day Years Used Date Smoking Tobacco: Never Smokeless Tobacco: Never Alcohol Use Standard Drinks/Week Comments Not Currently 0 (1 standard drink = 0.6 oz pure alcohol) Caffeine Intake: more then 4 cups/day PHQ-2 Answer Date Recorded Patient Health Questionnaire-2 Score 0 04/13/2025 Comments Unknown Sex and Gender Information Value Date Recorded Sex Assigned at Not on file Legal Sex Female 6:41 PM EDT Gender Identity Not on file Sexual Orientation Not on file documented as of this encounter Last Filed Vital Signs Vital Sign Reading Time Taken Comments Blood Pressure 172/68 04/13/2025 10:40 AM EDT Pulse 62 04/13/2025 10:40 AM EDT Temperature 36.4 C (97.5 F) 04/13/2025 10:40 AM EDT Respiratory Rate 20 04/13/2025 10:40 AM EDT Oxygen Saturation 98% 04/13/2025 10:40 AM EDT Inhaled Oxygen Concentration - - Weight 72.2 kg (159 lb 3.2 oz) 04/13/2025 10:40 AM EDT Height - - Body Mass Index 30.08 10/13/2024 9:42 AM EST documented in this encounter Functional Status * Over the past 2 weeks, how often have you been bothered by any of the following problems? Question Answer Date of Assessment Author Little interest or pleasure in doing things Not at all 04/13/2025 10:46 AM EDT JENAE AMAYA Feeling down, depressed, or hopeless Not at all 04/13/2025 10:46 AM EDT JENAE AMAYA Patient Health Questionnaire -2 Score 0 04/13/2025 10:46 AM EDT JENAE AMAYA * Question Answer Date of Assessment Author Trouble falling or staying asleep, or sleeping too much Several days 04/13/2025 10:46 AM SHANICE GARCÍA Feeling tired or having little energy Not at all 04/13/2025 10:46 AM JENAE MANZO Poor appetite or overeating Several days 04/13/2025 10 :46 AM SHANICE MANZO Feeling bad about yourself - or that you are a failure or have let yourself or your family down Not at all 04/13/2025 10:46 AM JENAE MANZO Trouble concentrating on things, such as reading the newspaper or watching television Not at all 04/13/2025 10:46 AM JENAE MANZO Moving or speaking so slowly that other people could have noticed? Or the opposite - being so fidgety or restless that you have been moving around a lot more than usual. Not at all 04/13/2025 10:46 AM SHANICE GARSIA Thoughts that you would be better off or hurting yourself in some way Not at all 04/13/2025 10:46 AM JEFF MANZO Patient Health Questionnaire-9 Score 2 04/13/2025 10:46 AM EDT CUATE AMAYA documented as of this encounter Patient Instructions * Patient Instructions* Pamela Moore NP - 04/13/2025 10:30 AM EDT Diverticulitis: soft diet for next day of so, take atb, if worsening in pain to to ER I would like you to go see someone for counseling documented in this encounter Progress Notes * Pamela Moore NP - 04/13/2025 12:51 PM EDTAssociated Problem(s): LORI (generalized anxiety disorder) Declines meds for this Also offered counseling, at this time she has declined 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 Unsure if her diverticulitis has flared up again Pain started a couple days ago. She states she ate walnuts. Pt does have daily BM and states that they are more formed. Right shoulder still having pain and she can not raise it up Pt started taking mag glycinate 400mg 1-2 tabs- to help her sleep better at night * Pamela Moore NP - 04/13/2025 10:30 AM EDT Images from the original note were not included. Heidy Sherman is a 79 y.o. female presents with chief complaint of Medicare Annual Wellness Visit Initial HPI: Diet: variety, Activity: stretching exercises Mental Health Concerns: possibly anxiety or possible ADHD Falls in the last year: no Still driving: yes Do you pay your bills: yes Any hearing problems: yes, has hearing aids they do not work, worse with low tones Any Vision problems: wears glasses, 04/07/25 Any Hospitalizations in the last year: no Specialist: eye doctor, ortho HCPOA/Living Will: has the info Concerns: Pain on left side- mid left quad. Unsure if her diverticulitis has flared up again Pain started a couple days ago. She states she ate walnuts. Pt does have daily BM and states that they are more formed. No fever, no diarrhea, no NV No urinary complaints Right shoulder still having pain and she can not raise it up : sees ortho Pt started taking mag glycinate 400mg 1-2 tabs- to help her sleep better at night SUBJECTIVE: MEDICATIONS: Current Outpatient Medications Medication Instructions albuterol HFA 90 mcg/act inhaler 2 puffs, Inhalation, Every 6 hours PRN alendronate (FOSAMAX) 70 mg, Oral, Every 7 days atorvastatin (LIPITOR) 20 mg, Oral, Nightly benzonatate (TESSALON) 100 mg, 3 times daily PRN biotin 1 MG capsule Oral cholecalciferol (VITAMIN D-3) 2,000 Units, Daily ciprofloxacin (CIPRO) 500 mg, Oral, 2 times daily erythromycin (Romycin) 5 MG/GM ophthalmic ointment 0.5 inches, 2 times daily fluticasone (Flonase) 50 MCG/ACT nasal spray 2 sprays, Each Nostril, Daily folic acid (FOLVITE) 1 mg, Oral, Daily RT levothyroxine (SYNTHROID, LEVOXYL) 50 mcg, Oral, Daily before breakfast loratadine (CLARITIN REDITABS) 10 mg, Daily metroNIDAZOLE (FLAGYL) 500 mg, Oral, 3 times daily, No alcohol use while taking this Multiple Vitamin (MULTIVITAMIN ADULT PO) Multivitamin omega-3 [...] chest pain, palpitations and leg swelling. Gastrointestinal: Positive for abdominal pain. Negative for blood in stool, constipation, diarrhea,nausea and vomiting. Genitourinary: Negative for difficulty urinating, dysuria and frequency. Musculoskeletal: Positive for arthralgias. Negative for back pain, joint swelling and myalgias. Skin: Negative for rash and wound. Neurological: Negative for dizziness, tremors, seizures, syncope and headaches. Psychiatric/Behavioral: Positive for decreased concentration. Negative for behavioral problems, self-injury and suicidal [...] dysfunction), left GERD (gastroesophageal reflux disease) Hyperlipidemia Insomnia LPRD (laryngopharyngeal reflux disease) Osteoporosis Pre-diabetes Primary osteoarthritis of right knee Trigger [...] father and mother. OBJECTIVE: Visit Vitals BP 172/68 (BP Location: Left arm, Patient Position: Sitting, BP Cuff Size: Adult long) Pulse 62 Temp 97.5 ??F (Temporal) Resp 20 Wt 159 lb 3.2 oz SpO2 98% BMI 30.08 kg/m?? Smoking Status Never BSA 1.76 m?? Physical Exam Vitals and nursing note reviewed. [...] regular rhythm. Pulses: Normal pulses. Heart sounds: Murmur heard. Pulmonary: Effort: Pulmonary effort is normal. Breath sounds: Normal breath sounds. No wheezing or rhonchi. Abdominal: General: Bowel sounds are normal. There is no distension. Palpations: Abdomen is soft. There is no mass. Tenderness: There is no abdominal tenderness (mild-mod tenderness left side abd, no rebound/gaurding). Musculoskeletal: General: Normal range of motion. Cervical [...] ASSESSMENT AND PLAN: Follow up in about 3 months (around 07/14/2025) for Recheck. Problem List Items Addressed This Visit GERD (gastroesophageal reflux disease) Recommendations: freq small meals, nothing to eat or drink at least 2 hours prior to bed, limit caffeine, alcohol, as well as spicy foods Meds to limit or avoid if possible: NSAIDS Elevate HOB if possible Osteoporosis DEXA: 01/13 -1.6 left FA On fosamax Relevant Medications alendronate (Fosamax) 70 MG tablet Pre-diabetes Recommend weight loss, exercises, and cutting back on carbs/sugary foods A1c 6.2% 04/13/25 Relevant Orders POCT glycosylated hemoglobin (Hb A1C) docked device (Completed) Hyperlipidemia On statin therapy Check labs yearly and prn dose changes Hypothyroidism (acquired) Currently taking levothyroxine Check labs yearly , prn dose changes or changes in sxs Encounter for subsequent annual wellness visit (AWV) in Medicare patient - Primary I have reviewed Ht/Wt/BMI, I have reviewed recommended vaccines for patient's age, as well as all recommended screenings I have reviewed available care everywhere notes as well. I have recommended eating a balanced diet,as well as activity as chronic conditions allow It is recommended that the patient have a yearly eye exam, as well as twice a year dental exams Fu in this office for wellness on a yearly basis Primary hypertension Please check blood pressure daily and record DASH diet Limit caffeine Contact office if chest pain, pressure, dizziness, shortness of breath, swelling legs Refuses to take meds Feels that it is anxiety at office her home reads 130/80's While there may be some white coat HTN, I still believe medications are in order I also think she suffers from anxiety, and she refuses to take meds for this as well LORI (generalized anxiety disorder) Declines meds for this Also offered counseling, at this time she has declined She will see about talking with her lining parts sewer about this Class 1 obesity due to excess calories without serious comorbidity with body mass index (BMI) of 30.0 to 30.9 in adult Discussed with patient their BMI (actual, verses recommended). We have also discussed lifestyle modifications: attempts to perform physical activity as chronic conditions allow, also to monitor dietary intake: increasing protein/fruits/veggies and lowering carb intake (unless contraindicated). Limit sodas, juices, and sugary drinks. Diverticulitis Diverticulitis Will treat with atb If not better go to ER Relevant Medications ciprofloxacin (Cipro) 500 MG tablet metroNIDAZOLE (Flagyl) 500 MG tablet Onychomycosis Would like referral to podiatry Relevant Orders Ambulatory referral to Podiatry Other Visit Diagnoses Hyperlipidemia, unspecified Relevant Medications atorvastatin (Lipitor) 20 MG tablet * Pamela Moore NP - 04/13/2025 6:58 AM EDTAssociated Problem(s): Encounter for subsequent annual wellness visit (AWV) in Medicare patient I have reviewed Ht/Wt/BMI, I have reviewed recommended vaccines for patient's age, as well as all recommended screenings I have reviewed available care everywhere notes as well. I have recommended eating a balanced diet,as well as activity as chronic conditions allow It is recommended that the patient have a yearly eye exam, as well as twice a year dental exams Fu in this office for wellness on a yearly basis * Pamela Moore NP - 04/13/2025 6:58 AM EDTAssociated Problem(s): Hyperlipidemia On statin therapy Check labs yearly and prn dose changes * Pamela Moore NP - 04/13/2025 6:57 AM EDTAssociated Problem(s): Class 1 obesity due to excess calories without serious comorbidity with bodymass index (BMI) of 30.0 to 30.9 in adult Discussed with patient their BMI (actual, verses recommended). We have also discussed lifestyle modifications: attempts to perform physical activity as chronic conditions allow, also to monitor dietary intake: increasing protein/fruits/veggies and lowering carb intake (unless contraindicated). Limit sodas, juices, and sugary drinks. * Pamela Moore NP - 04/13/2025 6:57 AM EDTAssociated Problem(s): Hypothyroidism (acquired) Currently taking levothyroxine Check labs yearly , prn dose changes or changes in sxs * Pamela oMore NP - 04/13/2025 6:57 AM EDTAssociated Problem(s): Pre-diabetes Recommend weight loss, exercises, and cutting back on carbs/sugary foods A1c 6.2% 04/13/25 * Pamela Moore NP - 04/13/2025 6:57 AM EDTAssociated Problem(s): Osteoporosis DEXA: 01/13 -1.6 left FA On fosamax * Pamela Moore NP - 04/13/2025 6:56 AM EDTAssociated Problem(s): GERD (gastroesophageal reflux disease) Recommendations: freq small meals, nothing to eat or drink at least 2 hours prior to bed, limit caffeine, alcohol, as well as spicy foods Meds to limit or avoid if possible: NSAIDS Elevate HOB if possible * Pamela Moore NP - 04/13/2025 6:56 AM EDTAssociated Problem(s): Primary hypertension Please check blood pressure daily and record DASH diet Limit caffeine Contact office if chest pain, pressure, dizziness, shortness of breath, swelling legs Refuses to take meds Feels that it is anxiety at office her home reads 130/80's While there may be some white coat HTN, I still believe medications are in order I also think she suffers from anxiety, and she refuses to take meds for this as well documented in this encounter Plan of Treatment Upcoming Encounters Date Type Department Care Team (Late st Contact Info) Description 04/28/2025 3:50 PM EDT [facility] Visit [facility] [address] [facility] [address] [place] [phone] Chaz Todd DPM [address] [facility] [address] [place] [address] 07/14/2025 10:30 AM EDT Office Visit [facility] [address] [place] [phone] Pamela Moore NP [address] [place] [phone] 04/20/2026 10:00 AM EDT Office Visit [facility] [address] [place] [address] Pamela Moore NP [address] [place] [address] Scheduled Referrals Name Type Priority Associated Diagnoses Order Schedule Ambulatory referral to Podiatry Outpatient Referral Routine Onychomycosis Expected: 04/13/2025 (Approximate), Expires: 10/14/2025 documented as of this encounter Procedures Procedure Name Priority Date/Time Associated Diagnosis Comments POCT GLYCOSYLATED HEMOGLOBIN (HGB A1C) Routine 04/13/2025 11:06 AM EDT Pre-diabetes documented in this encounter Results * (ABNORMAL) POCT glycosylated hemoglobin (Hb A1C) docked device (04/13/2025 11:06 AM EDT) Hemoglobin A1C 6.2 Blood Venous blood specimen / Unknown 04/13/2025 11:06 AM EDT Pamela Moore NP POINT OF CARE TEST ENTER/EDIT O RDERABLES Final Result documented in this encounter Visit Diagnoses Diagnosis Encounter for subsequent annual wellness visit (AWV) in Medicare patient- Primary Primary hypertension Unspecified essential hypertension Gastroesophageal reflux disease, unspecified whether esophagitis present Age related osteoporosis, unspecified pathological fracture presence Pre-diabetes Other abnormal glucose Hypothyroidism (acquired) Unspecified hypothyroidism Class 1 obesity due to excess calories without serious comorbidity with body mass index (BMI) of 30.0 to 30.9 in adult Mixed hyperlipidemia Mixed hyperlipidemia Hyperlipidemia, unspecified Diverticulitis Diverticulitis of colon (without mention of hemorrhage) LORI (generalized anxiety disorder) Generalized anxiety disorder Onychomycosis Dermatophytosis of nail documented in this encounter Additional Health Concerns Assessment Noted Time PHQ-9 Depression Total Score: 2 04/13/20 25 10:46 AM EDT documented as of this encounter Care Teams Size Roller Operator Relationship Specialty Start Date End Date Pamela Moore NP [address] [place] [address] PCP - Ankit MURRY 04/22/24 Jorge French MD [address] [place] [address] PCP - General Family Medicine 07/22/24 documented as of this encounter
[2025-04-23 11:14] VITALS: BP 156/40; PULSE 74; TEMP 36.7; O2SAT 97; BMI 29.5
--- OUTSIDE RECORDS SUMMARY | 2025-04-23 11:17 | XMS_ITS | Encounter Summary ---
Author Organization [facility] Address [address] [place] [address] Care Team Providers Care Pharmacognosist Name Role Phone Pamela Moore TELEMETRY MONITOR Unavailable [phone] Jorge French MD Primary Care Provider Encounter Details Date Type Department Care Team (Late st Contact Info) Description 07/29/2024 Orders Only [facility] [address] [place] [address] Pamela Moore NP [address] [place] [id number] Social History Tobacco Use Types Packs/Day Years Used Date Smoking Tobacco: Never Smokeless Tobacco: Never Alcohol Use Standard Drinks/Week Comments Not Currently 0 (1 standard drink = 0.6 oz pure alcohol) Caffeine Intake: more then 4 cups/day PHQ-2 Answer Date Recorded Patient Health Questionnaire-2 Score 0 04/14/2024 Comments Unknown Sex and Gender Information Value Date Recorded Sex Assigned at Not on file Legal Sex Female 6:41 PM EDT Gender Identity Not on file Sexual Orientation Not on file documented as of this encounter Plan of Treatment Upcoming Encounters Date Type Department Care Team (Late st Contact Info) Description 04/28/2025 3:50 PM EDT Office Visit [facility] [address] [place] [id number] Chaz Todd, DPM [address] [address] 07/14/2025 10:30 AM EDT Office Visit [facility] [address] [place] [address] Pamela Moore NP [address] [place] [phone] 04/20/2026 10:00 AM EDT Office Visit [facility] [address] [place] [phone] Pamela Moore NP [address] [place] [phone] documented as of this encounter Procedures Procedure Name Priority Date/Time Associated Diagnosis Comments US PELVIS TRANSVAGINAL Routine 07/29/2024 8:13 AM EST documented in this encounter Results * US pelvis transvaginal (07/29/2024 8:13 AM EST) Anatomical Region Laterality Modality Pelvis Ultrasound us Pamela Moore NP IMG US PROCEDURES Final Result documented in this encounter Visit Diagnoses Not on filedocumented in this encounter Additional Health Concerns Assessment Noted Time PHQ-9 Depression Total Score: 2 04/14/20 9:07 AM EDT documented as of this encounter Care Teams Pharmacognosist Relationship Specialty Start Date End Date Pamela Moore NP [address] [place] [phone] PCP - Ankit MURRY 04/22/24 Jorge French MD [address] [place] [phone] PCP - General Family Medicine 07/22/24 documented as of this encounter
--- OUTSIDE RECORDS SUMMARY | 2025-04-23 11:17 | XMS_ITS | Clinical Summary ---
Author Organization [facility] Address [address] [facility], [address] [place] [address] Care Team Providers Care Hand Candy Cutter Name Role Phone Unavailable Primary Care Provider Unavailabl e Allergies Active Allergy Reactions Criticality Noted Date Comments Ampicillin Hives Low 02/10/2012 Medications LEVOTHYROXINE SODIUM POIndications:Hy perthyroidism,Th yroid Adenoma Take 50 mg by mouth daily. 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 Indications: Changes in Cholesterol Active Albuterol Sulfate (VENTOLIN HFA IN) Inhale 2 puffs into the lungs as needed. Active naproxen sodium (ALEVE) 220 MG tablet Take 220 mg by mouth as needed. For arthritis Active loratadine (CLARITIN) 10 MG tablet Take 10 mg by mouth as needed. Active alendronate (FOSAMAX) 70 MG tablet Take 70 mg by mouth every 7 days. Active ciprofloxacin (CIPRO) 500 MG tablet Take 500 mg by mouth 2 times daily. Active tramadol (ULTRAM) 50 MG tablet Take 50 mg by mouth as needed. Active tizanidine (ZANAFLEX) 4 MG tablet Take 4 mg by mouth as needed. Active Sherman-3 Fatty Acids (OMEGA 3 PO) Take 1 tablet by mouth daily. Active Active Problems Problem Noted Date Diagnosed Date Osteopenia 02/10/2012 History of 01/12/2011 Overview (01/12/2011): 2 C-sections Diverticulosis Family History Medical History Relation Name Comments Heart Defect Father pacemaker Breast Cancer Maternal Aunt Diabetes Mother type 2 Heart Defect Mother pacemaker Relation Name Status Comments Father Maternal Aunt Mother Social History Tobacco Use Types Packs/Day Years Used Date Smoking Tobacco: Never Smokeless Tobacco: Never Alcohol Use Standard Drinks/Week Comments No 0 (1 standard drink = 0.6 oz pur e alcohol) Comments No Sex and Gender Information Value Date Recorded Sex Assigned at Not on file Legal Sex Female 6:12 PM EST Gender Identity Not on file Sexual Orientation Not on file Last Filed Vital Signs Vital Sign Reading Time Taken Comments Blood Pressure 157/69 02/10/2012 9:18 AM EDT Pulse 82 02/10/2012 9:18 AM EDT Temperature - - Respiratory Rate 16 12/31/2010 1:08 PM EDT Oxygen Saturation - - Inhaled Oxygen Concentration - - Weight 76.3 kg (168 lb 3.2 oz) 02/10/2012 9:18 A M EDT Height 156 cm (5' 1.4 ) 02/10/2012 9:18 AM EDT Body Mass Index 31.37 02/10/2012 9:18 AM EDT Plan of Treatment Not on file
--- OUTSIDE RECORDS SUMMARY | 2025-04-23 11:17 | XMS_ITS | Encounter Summary ---
Author Organization [facility] Address [address] [place] [address] Care Team Providers Care Spinning Machine Tender Name Role Phone Jorge French MD Primary Care Provider [phone] Jorge French MD Primary Care Provider [phone] Pamela Moore NP Unavailable [phone] Unallocated, Noms Provider Primary Care Provi oksana Jorge French MD Primary Care Provider [phone] Encounter Details Date Type Department Care Team (Late st Contact Info) Description 02/04/2023 Abstract [facility] [address] [place] [address] Heidy Light, [employer] WILDLIFE SCIENTIFIC AID Social History Tobacco Use Types Packs/Day Years Used Date Smoking Tobacco: Never Smokeless Tobacco: Never Tobacco Cessation:Counseling Given: Not Answered Alcohol Use Standard Drinks/Week Comments Not Currently 0 (1 standard drink = 0.6 oz pure alcohol) Caffeine Intake: more then 4 cups/day Comments Unknown Sex and Gender Information Value Date Recorded Sex Assigned at Not on file Legal Sex Female 6:41 PM EDT Gender Identity Not on file Sexual Orientation Not on file documented as of this encounter Plan of Treatment Upcoming Encounters Date Type Department Care Team (Late st Contact Info) Description 04/28/2025 3:50 PM EDT Office Visit [facility] [address] [place] [address] Chaz [place], DPNelson 3006 [facility] 5 [place] [address] 07/14/2025 10:30 AM EDT Office Visit [facility] [address] [place] [address] Pamela Moore, [employer] WILDLIFE SCI[employer] [address] [place] [address] 04/20/2026 10:00 AM EDT Office Visit [facility] [address] [place] [address] Pamela Moore, MARIKA [address] [place] [address] documented as of this encounter Visit Diagnoses Not on filedocumented in this encounter Care Teams Spinning Machine Tender Relationship Specialty Start Date End Date Jorge French MD PCP - General Cardiology 01/28/23 11/04/23 Jorge French MD [address] [place] [address] PCP - General Family Medicine 11/05/23 07/06/24 Pamela Moore NP [address] [place] [address] PCP - Ankit MURRY 04/22/24 Unallocated, Nomdheeraj Avina MD [address] [facility] [place] [address] PCP - General Family Medicine 07/07/24 07/21/24 Jorge French MD [address] [place] [address] PCP - General Family Medicine 07/22/24 documented as of this encounter
--- OUTSIDE RECORDS SUMMARY | 2025-04-23 11:17 | XMS_ITS | Encounter Summary ---
Author Organization [facility] Address [address] [place] [address] Care Team Providers Care Tosser Name Role Phone Pamela Moore ANIMAL IMPERSONATOR Unavailable [phone] Jorge French MD Primary Care Provider Encounter Details Date Type Department Care Team (Late st Contact Info) Description 12/23/2024 Orders Only [facility] [address] [place] [address] Pamela Moore NP [address] [place] [address] Encounter for screening mammogram for malignant neoplasm of breast (Primary Dx) Social History Tobacco Use Types Packs/Day Years [...] [facility] [address] [place] [address] Chaz [place], DPM [address] [address] 07/14/2025 10:30 AM EDT Office Visit [facility] [address] [place] [address] Pamela Moore, MARIKA [address] [place] [address] 04/20/2026 10:00 AM EDT Office Visit [facility] [address] [place] [address] Pamela Moore NP [address] [place] [address] Scheduled Orders Name Type Priority Associated Diagnoses Orde r Schedule Bilateral screening mammogram Imaging Routine Encounter for screening mammogram for malignant neoplasm of breast Expected: 12/23/2024 (Approximate), Expires: 02/22/2026 documented as of this encounter Visit Diagnoses Diagnosis Encounter for screening mammogram for malignant neoplasm of breast- Primary documented in this encounter Additional Health Concerns Assessment Noted Time PHQ-9 Depression Total Score: 2 04/14/20 24 9:07 AM EDT documented as of this encounter Care Teams Tosser Relationship Specialty Start Date End Date Pamela Moore NP [address] [place] [address] PCP - Ankit MURRY 04/22/24 Jorge French MD [address] [place] [address] PCP - General Family Medicine 07/22/24 documented as of this encounter
--- OUTSIDE RECORDS SUMMARY | 2025-04-23 11:17 | XMS_ITS | Encounter Summary ---
Author Organization [facility] Address [address] [place] [address] Care Team Providers Care Paint Stripper Name Role Phone Pamela Moore VEGETABLE TRIMMER Unavailable [phone] Jorge French MD Primary Care Provider Encounter Details Date Type Department Care Team (Late st Contact Info) Description 04/20/2025 Telephone [facility] [address] [place] [address] Pamela Moore NP [address] [place] [address] Social History Tobacco Use Types Packs/Day Years [...] on file documented as of this encounter Miscellaneous Notes * Telephone Encounter - SHANICE AMAYA - 04/20/2025 10:23 AM EDT Text Registered Nurse Fetal This is Heidy Sherman. [phone]. Give you a call back. Thank you, bye. documented in this encounter Plan of Treatment Upcoming Encounters Date Type Department Care Team (Late st Contact Info) Description 04/28/2025 3:50 PM EDT Office Visit [facility] 112 [facility] [address] [place] [address] Chaz [place], DPNelson 3006 [facility] 5 [place] [address] 07/14/2025 10:30 AM EDT Office Visit [facility] [address] [place] [address] Pamela Moore, MARIKA [address] [place] [address] 04/20/2026 10:00 AM EDT Office Visit [facility] [address] [place] [address] Pamela Moore NP [address] [place] [address] documented as of this encounter Visit Diagnoses Not on filedocumented in this encounter Additional Health Concerns Assessment Noted Time PHQ-9 Depression Total Score: 2 04/13/20 25 10:46 AM EDT documented as of this encounter Care Teams Paint Stripper Relationship Specialty Start Date End Date Pamela Moore, MARIKA [address] [place] [address] PCP - Ankit MURRY 04/22/24 Jorge French MD [address] [place] [address] PCP - General Family Medicine 07/22/24 documented as of this encounter
--- OUTSIDE RECORDS SUMMARY | 2025-04-23 11:17 | XMS_ITS | Encounter Summary ---
Author Organization [facility] Address [address] [place] [address] Care Team Providers Care Code Number Stamper Name Role Phone Pamela Moore NP Unavailable [phone] Jorge French MD Primary Care Provider Encounter Details Date Type Department Care Team (Late Contact Info) Description 08/03/2024 Orders Only [facility] [address] [place] [address] Pelvic pain; Encounter for well woman exam with routine gynecological exam; Age related osteoporosis, unspecified pathological fracture presence ; Rib pain on left side Social History Tobacco Use Types Packs/Day Years [...] Encounters Date Type Department Care Team (Late Contact Info) Description 04/28/2025 3:50 PM EDT Office Visit [facility] 112 [facility] [address] [place] [address] Chaz [place] DPM [address] [facility] 5 [place] [address] 07/14/2025 10:30 AM EDT Office Visit [facility] [address] [place] [address] Pamela Moore NP [address] [place] [address] 04/20/2026 10:00 AM EDT Office Visit [facility] [address] [place] [address] Pamela Moore NP [address] [place] [address] documented as of this encounter Visit Diagnoses Diagnosis Pelvic pain Encounter for well woman exam with routine gynecological exam Age related osteoporosis, unspecified pathological fracture presence Rib pain on left side documented in this encounter Additional Health Concerns Assessment Noted Time PHQ-9 Depression Total Score: 2 04/14/20 9:07 AM EDT documented as of this encounter Care Teams Code Number Stamper Relationship Specialty Start Date End Date Pamela Moore NP [address] [place] [address] PCP - Ankit MURRY 04/22/24 Jorge French MD [address] [place] [address] PCP - General Family Medicine 07/22/24 documented as of this encounter
--- OUTSIDE RECORDS SUMMARY | 2025-04-23 11:17 | XMS_ITS | Encounter Summary ---
Author Organization [facility] Address [address] [place] [address] Care Team Providers Care Commercial Pest Control Technician Name Role Phone Jorge French MD Primary Care Provider [phone] Jorge French MD Primary Care Provider [phone] Pamela Moore NOZZLE CEMENT SPRAYER HELPER Unavailable Unallocated, Noms Provider Primary Care Provi oksana Jorge French MD Primary Care Provider Encounter Details Date Type Department Care Team (Late st Contact Info) Description 09/13/2023 Abstract [facility] [address] [place] [address] Pamela Moore, NOZZLE CEMENT SPRAYER HELPER [address] [place] [address] Social History Tobacco Use Types Packs/Day Years [...] Office Visit [facility] [address] [facility] [address] [place] [address] Chaz [place], DPNelson 3006 [facility] 5 [place] [address] 07/14/2025 10:30 AM EDT Office Visit [facility] [address] [place] [address] Pamela Moroe, MARIKA [address] [place] [address] 04/20/2026 10:00 AM EDT Office Visit [facility] [address] [place] [address] Pamela Moore, MARIKA [address] [place] [address] documented as of this encounter Visit Diagnoses Not on filedocumented in this encounter Care Teams Commercial Pest Control Technician Relationship Specialty Start Date End Date Jorge French MD PCP - General Cardiology 01/28/23 11/04/23 Jorge French MD [address] [place] [address] PCP - General Family Medicine 11/05/23 07/06/24 Pamela Moore NP [address] [place] [address] PCP - Ankit MURRY 04/22/24 Unallocated, Noms MD Kailyn [address] [facility] [place] [address] PCP - General Family Medicine 07/07/24 07/21/24 Jorge French MD [address] [place] [address] PCP - General Family Medicine 07/22/24 documented as of this encounter
--- OUTSIDE RECORDS SUMMARY | 2025-04-23 11:17 | XMS_ITS | Encounter Summary ---
Author Organization [facility] Address [address] [place] [address] Care Team Providers Care Orange Picker Machine Operator Name Role Phone Jorge French MD Primary Care Provider [phone] Jorge French MD Primary Care Provider Pamela Moore LEAD ACCOUNTANT Unavailable [phone] Unallocated, Noms Provider Primary Care Provi oksana Jorge French MD Primary Care Provider [phone] Encounter Details Date Type Department Care Team (Late st Contact Info) Description 09/19/2023 Clinisync Result Encounter [facility] External Department Unsolicited Pamela Moore, LEAD ACCOUNTANT [address] [place] [address] Social History Tobacco Use Types Packs/Day Years [...] [facility] [address] [place] [address] Chaz [place], DPNelson 3006 [facility] 5 [place] [address] 07/14/2025 10:30 AM EDT Office Visit [facility] [address] [place] [address] Pamela Moore NP [address] [place] [address] 04/20/2026 10:00 AM EDT Office Visit [facility] [address] [place] [address] Pamela Moore NP [address] [place] [address] documented as of this encounter Procedures Procedure Name Priority Date/Time Associated Diagnosis Comments XR RIBS LT 2V 09/19/2023 6:34 AM EST documented in this encounter Results * XR RIBS LT 2V (09/19/2023 6:34 AM EST) Anatomical Region Laterality Modality Radiographic Enedelia ging 09/19/2023 6:34 AM EST Narrative 09/19/2023 6:37 AM EST [address] [address] XRay Report Signed Patient: BERNARD PONCE MR#: [id number] : 1945 Acct:[id number] Age/Sex: 77 / F ADM Date: 09/17/23 Loc: RAD Attending Dr: Pamela Moore LEAD ACCOUNTANT Ordering Physician: Pamela Moore NP Date of Service: 09/17/23 Procedure(s): XR ribs LT 2V Accession Number(s): [id number] cc: Pamela Moore NP [place] [id number] Patient Name: BERNARD PONCE MRN: [id number] date: 1945 Sex: F Assigned Patient Location: [facility] Current Patient Location: Accession/Order Number: [id number] Exam Date: 09/17/2023 11:30 Report Date: 09/19/2023 06:34 At the request of: PAMELA MOORE Procedure: XR ribs LT 2V EXAMINATION: XR ribs LT 2V HISTORY: rib pain on left side R07.81 ; fell 09/09/2023 COMPARISON: XR chest 09/10/2023 FINDINGS: RIBS: Normal. No significant arthropathy or acute abnormality. LUNGS: No appreciable pneumothorax or pleural thickening. OTHER: Negative. XR/XR ribs LT 2V IMPRESSION: 1. No appreciable rib fracture. 2. No acute cardiopulmonary process. Electronically authenticated by: JAVIER LLANES Date: 09/19/2023 06:34 Dictated By: Javier Llanes M.D. Signed By: 09/19/2337 DD/ TD/TT: Masonry Instructor: Procedure Note Radiology, Radiologist, MD - 09/23/2023 [place] [address] XRay Report Signed Patient: BERNARD PONCE EMR#: [id number] : 8Acct:[id number] Age/Sex: 77 / FADM Date: 09/17/23 Loc: RAD Attending Dr: Pamela Moore LEAD ACCOUNTANT Ordering Physician: Pamela Moore NP Date of Service: 09/17/23 Procedure(s): XR ribs LT 2V Accession Number(s): [id number] cc: Pamela Moore NP The [place] [id number] Patient Name: BERNARD PONCE MRN: [id number] date: 1945 Sex: F Assigned Patient Location: [facility] Current Patient Location: Accession/Order Number: [id number] Exam Date: 09/17/2023 11:30 Report Date: 09/19/2023 06:34 At the request of: PAMELA MOORE Procedure: XR ribs LT 2V EXAMINATION: XR ribs LT 2V HISTORY: rib pain on left side R07.81 ; fell 09/09/2023 COMPARISON: XR chest 09/10/2023 FINDINGS: RIBS: Normal. No significant arthropathy or acute abnormality. LUNGS: No appreciable pneumothorax or pleural thickening. OTHER: Negative. XR/XR ribs LT 2V IMPRESSION: 1. No appreciable rib fracture. 2. No acute cardiopulmonary process. Electronically authenticated by: JAVIER LLANES Date: 09/19/2023 06:34 Dictated By: Javier Llanes M.D. Signed By:09/19/2337 DD/ 3 TD/TT: Masonry Instructor: Pamela Moore LEAD ACCOUNTANT IMG XR PROCEDURES Final Result documented in this encounter Visit Diagnoses Not on filedocumented in this encounter Care Teams Orange Picker Machine Operator Relationship Specialty Start Date End Date Jorge French MD PCP - General Cardiology 01/28/23 11/04/23 Jorge French MD [address] [place] [address] PCP - General Family Medicine 11/05/23 07/06/24 Pamela Moore NP [address] [place] [address] PCP - Ankit MURRY 04/22/24 Unallocated, Noms ProviderMD [address] [place] [address] PCP - General Family Medicine 07/07/24 07/21/24 Jorge French MD [address] [place] [address] PCP - General Family Medicine 07/22/24 documented as of this encounter
--- OUTSIDE RECORDS SUMMARY | 2025-04-23 11:17 | XMS_ITS | Encounter Summary ---
Author Organization [facility] Address [address] [place] [address] Care Team Providers Care Inspector Missile Name Role Phone Jorge French MD Primary Care Provider Pamela Moore BRIGHT CUTTER Unavailable [phone] Unallocated, Noms Provider Primary Care Provi oksana Jorge French MD Primary Care Provider Encounter Details Date Type Department Care Team (Late st Contact Info) Description 01/05/2024 Orders Only [facility] [address] [place] [address] Pamela Moore, BRIGHT CUTTER [address] [place] [address] Social History Tobacco Use Types Packs/Day Years Used Date Smoking Tobacco: Never Smokeless Tobacco: Never Alcohol Use Standard Drinks/Week Comments Not Currently 0 (1 standard drink = 0.6 oz pure alcohol) Caffeine Intake: more then 4 cups/day PHQ-2 Answer Date Recorded Patient Health Questionnaire-2 Score 0 11/05/2023 Comments Unknown Sex and Gender Information Value Date Recorded Sex Assigned at Not on file Legal Sex Female 6:41 PM EDT Gender Identity Not on file Sexual Orientation Not on file documented as of this encounter Plan of Treatment Upcoming Encounters Date Type Department Care Team (Late st Contact Info) Description 04/28/2025 3:50 PM EDT Office Visit [facility] 112 [facility] [address] [place] [address] Chaz [place], DPNelson 3006 [facility] 5 [place] [address] 07/14/2025 10:30 AM EDT Office Visit [facility] [address] [place] [address] Pamela Moore NP [address] [place] [address] 04/20/2026 10:00 AM EDT Office Visit [facility] [address] [place] [address] Pamela Moore NP [address] [place] [address] documented as of this encounter Procedures Procedure Name Priority Date/Time Associated Diagnosis Comments MAMMOGRAM* Routine 01/05/2024 10:38 AM EDT XR DEXA AXIAL SKELETON* Routine 01/05/2024 8:53 AM EDT documented in this encounter Results * MAMMOGRAM* (01/05/2024 10:38 AM EDT) Anatomical Region Laterality Modality Radiographic Enedelia ging Pamela Moore NP IMG XR PROCEDURES Final Result * XR DEXA AXIAL SKELETON* (01/05/2024 8:53 AM EDT) Anatomical Region Laterality Modality Radiographic Enedelia ging Pamela Moore NP IMG XR PROCEDURES Final Result documented in this encounter Visit Diagnoses Not on filedocumented in this encounter Care Teams Inspector Missile Relationship Specialty Start Date End Date Jorge French MD [address] [place] [address] PCP - General Family Medicine 11/05/23 07/06/24 Pamela Moore NP [address] [place] [address] PCP - Ankit MURRY 04/22/24 Unallocated, Noms MD Kailyn [address] [place] [address] PCP - General Family Medicine 07/07/24 07/21/24 Jorge French MD [address] [place] [address] PCP - General Family Medicine 07/22/24 documented as of this encounter
--- OUTSIDE RECORDS SUMMARY | 2025-04-23 11:17 | XMS_ITS | Encounter Summary ---
Author Organization [facility] Address [address] [place] [address] Care Team Providers Care Culinary Specialist Name Role Phone Pamela Moore JOURNEYMAN WELDER Unavailable [phone] Jorge French MD Primary Care Provider [phone] Encounter Details Date Type Department Care Team (Late Contact Info) Description 07/29/2024 Clinisync Result Encounter [facility] External Department Unsolicited Pamela Moore NP [address] [place] [address] Social History Tobacco Use Types Packs/Day Years [...] EDT Office Visit [facility] 112 [facility] 120 [place] [address] Chaz Todd DPM 3000 [facility] 5 [place] [address] 07/14/2025 10:30 AM EDT Office Visit [facility] [address] [place] [address] Pamela Moore NP [address] [place] [address] 04/20/2026 10:00 AM EDT Office Visit [facility] [address] [place] [address] Pamela Moore NP [address] [place] [address] documented as of this encounter Procedures Procedure Name Priority Date/Time Associated Diagnosis Comments US PELVIS TRANSVAGINAL 07/29/2024 6:48 AM EST documented in this encounter Results * US PELVIS TRANSVAGINAL (07/29/2024 6:48 AM EST) Anatomical Region Laterality Modality Other 07/29/2024 6:48 AM EST Narrative 07/29/2024 6:50 AM EST [address] [address] Ultrasound Report Signed Patient: BERNARD PONCE MR#: [id number] : 1945 Acct:[id number] Age/Sex: 78 / F ADM Date: 07/28/24 Loc: US Attending Dr: Pamela Moore NP Ordering Physician: Pamela Moore NP Date of Service: 07/28/24 Procedure(s): US pelvis transvaginal Accession Number(s): [id number] cc: Pamela Moore NP [address] [address] Patient Name: BERNARD PONCE MRN: [id number] date: 1945 Sex: F Assigned Patient Location: US Current Patient Location: Accession/Order Number: [id number] Exam Date: 07/28/2024 11:18 Report Date: 07/29/2024 06:48 At the request of: PAMELA MOORE Procedure: US pelvis transvaginal EXAMINATION: US pelvis transvaginal HISTORY: Pelvic Pain ; chronic bilateral pelvic pain COMPARISON: No relevant comparison available. TECHNIQUE: Transabdominal and/or transvaginal sonographic examination was performed as indicated by examination type. FINDINGS: UTERUS: Normal size and contour. Within anterior uterine wall is a 5 mm rounded hyperechoic area, likely a leiomyoma. Uterus size: 5.4 x 2.0 x 3.1 cm ENDOMETRIUM: Normal homogeneous appearance. Endometrial thickness: 3 mm RIGHT OVARY: Not seen. LEFT OVARY: Not seen. CUL-DE-SAC: Unremarkable. No significant free fluid. BLADDER: Unremarkable. OTHER: None. US/US pelvis transvaginal IMPRESSION: 1. No acute or suspicious findings to account for patient's symptoms. 2. Anterior uterine wall small 5 mm mass, likely a leiomyoma. Electronically authenticated by: JAVIER LLANES Date: 07/29/2024 06:48 Dictated By: Javier Llanes M.D. Signed By: 07/29/24649 DD/ 7 TD/TT: Solid Waste Facility Supervisor: Procedure Note Radiology, Radiologist, MD - 07/29/2024 [place] [address] Ultrasound Report Signed Patient: BERNARD PONCE EMR#: [id number] : 1945cct:[id number] Age/Sex: 78 / FADM Date: 07/28/24 Loc: US Attending Dr: Pamela Moore NP Ordering Physician: Pamela Moore NP Date of Service: 07/28/24 Procedure(s): US pelvis transvaginal Accession Number(s): [id number] cc: Pamela Moore NP The [place] [id number] Patient Name: BERNARD PONCE MRN: [facility]:[id number] date: 1945 Sex: F Assigned Patient Location: Current Patient Location: Accession/Order Number: [id number] Exam Date: 07/28/2024 11:18 Report Date: 07/29/2024 06:48 At the request of: PAMELA MOORE Procedure: US pelvis transvaginal EXAMINATION: US pelvis transvaginal HISTORY: Pelvic Pain ; chronic bilateral pelvic pain COMPARISON: No relevant comparison available. TECHNIQUE: Transabdominal and/or transvaginal sonographic examination was performed as indicated by examination type. FINDINGS: UTERUS: Normal size and contour. Within anterior uterine wall is a 5 mm rounded hyperechoic area, likely a leiomyoma. Uterus size: 5.4 x 2.0 x 3.1 cm ENDOMETRIUM: Normal homogeneous appearance. Endometrial thickness: 3 mm RIGHT OVARY: Not seen. LEFT OVARY: Not seen. CUL-DE-SAC: Unremarkable. No significant free fluid. BLADDER: Unremarkable. OTHER: None. US/US pelvis transvaginal IMPRESSION: 1. No acute or suspicious findings to account for patient's symptoms. 2. Anterior uterine wall small 5 mm mass, likely a leiomyoma. Electronically authenticated by: JAVIER LLANES Date: 07/29/2024 06:48 Dictated By: Javier Llanes M.D. Signed By:07/29/2450 DD/ 7 TD/TT: Solid Waste Facility Supervisor: Pamela Moore JOURNEYMAN WELDER [facility] Final Result documented in this encounter Visit Diagnoses Not on filedocumented in this encounter Additional Health Concerns Assessment Noted Time PHQ-9 Depression Total Score: 2 04/14/20 24 9:07 AM EDT documented as of this encounter Care Teams Culinary Specialist Relationship Specialty Start Date End Date Pamela Moore NP [address] [place] [address] PCP - Ankit MURRY 04/22/24 Jorge French MD [address] [place] [address] PCP - General Family Medicine 07/22/24 documented as of this encounter
--- OUTSIDE RECORDS SUMMARY | 2025-04-23 11:17 | XMS_ITS | Encounter Summary ---
Author Organization [facility] Address [address] [place] [address] Care Team Providers Care Shirt Bander Name Role Phone Pamela Moore VOLUNTEER FIRE FIGHTER Unavailable [phone] Jorge French MD Primary Care Provider Encounter Details Date Type Department Care Team (Late st Contact Info) Description 04/14/2025 Telephone [facility] [address] [place] [address] Pamela Moore NP [address] [place] [address] Social History Tobacco Use Types Packs/Day Years [...] * Telephone Encounter - SHANICE AMAYA - 04/14/2025 9:26 AM EDT Text Sales Account Manager This is Heidy Sherman. And I did not ask the vector. How long I am supposed to do the clear liquids[place] [phone]. Thank you, Heidy Sherman. documented in this encounter Plan of Treatment Upcoming Encounters Date Type Department Care Team (Late st Contact Info) Description 04/28/2025 3:50 PM EDT Office Visit [facility] [address] [facility] [address] [place] [address] Chaz Todd, DPNelson [address] [facility] [address] [place] [address] 07/14/2025 10:30 AM EDT Office Visit [facility] [address] [place] [phone] Pamela Moore, MARIKA [address] [place] [phone] 04/20/2026 10:00 AM EDT Office Visit [facility] [address] [place] [phone] Pamela Moore NP [address] [place] [phone] documented as of this encounter Visit Diagnoses Not on filedocumented in this encounter Additional Health Concerns Assessment Noted Time PHQ-9 Depression Total Score: 2 04/13/20 25 10:46 AM EDT documented as of this encounter Care Teams Shirt Bander Relationship Specialty Start Date End Date Pamela Moore NP [address] [place] [phone] PCP - Ankit MURRY 04/22/24 Jorge French MD [address] [place] [phone] PCP - General Family Medicine 07/22/24 documented as of this encounter
--- OUTSIDE RECORDS SUMMARY | 2025-04-23 11:17 | XMS_ITS | Clinical Summary ---
Author Organization [facility] Address [id number] [address] [place] [address] Care Team Providers Care Casino Cashier Name Role Phone Pamela Moore APRN-ACCOUNTANT ASSISTANT Primary Care Provider Allergies Active Allergy Reactions Criticality Noted Date Comments Ampicillin Hives Low 02/10/2012 Medications alendronate (FOSAMAX) 70 mg tablet Take 1 tablet (70 mg total) by mouth once a week. 1 Active cetirizine (ZyrTEC) 10 mg tablet Take 1 tablet (10 mg total) by mouth in the morning. 1 Active cholecalciferol , vitamin D3, 2,000 units tablet Take 1 tablet (2,000 Units total) by mouth in the morning. 1 Active fluticasone propionate (FLONASE) 50 mcg/actuation nasal spray 1 Active levothyroxine (SYNTHROID, LEVOTHROID) 50 MCG tablet Take 1 tablet (50 mcg total) by mouth in the morning. 1 Active naproxen sodium (ALEVE) 220 mg tablet Take 220 mg by mouth. Active simvastatin (ZOCOR) 40 mg tablet Take 40 mg by mouth nightly. 1 Active albuterol (PROVENTIL HFA;VENTOLIN HFA) 90 mcg/actuation inhaler Inhale 2 puffs. Acti ve sodium,potassiu m,mag sulfates (SUPREP BOWEL PREP KIT) 17.5-3.13-1.6 gram recon solnIndications :Colon cancer screening 177 ml,actual weight, 2 times daily, Oral 354 mL 1 Active Additional Information Patient not taking.Reported on 04/07/2025 atorvastatin (LIPITOR) 20 mg tablet Take 1 tablet (20 mg total) by mouth in the morning. 2 Active acetaminophen (TYLENOL ARTHRITIS) 650 mg 8 hr tablet Activ e acetaminophen-c odeine (TYLENOL #3) 300-30 mg per tablet TAKE 1 TABLET BY MOUTH EVERY 6 HOURS NEEDED for moderate pain for up to 3 days 3 Active docosahexaenoic acid-epa 120-180 mg capsule Take 1 capsule by mouth. Active furosemide (LASIX) 20 mg tablet Take 1 tablet (20 mg total) by mouth. Active loratadine (CLARITIN) 10 mg tablet Take 1 tablet (10 mg total) by mouth in the morning. Active MULTIVITAMIN ORAL Take by mouth. Activ e mag lysin,malate-po tassium cit 125-47.5 mg tablet Take by mouth. Activ e folic acid (FOLVITE) 1 mg tablet Take 1 tablet (1 mg total) by mouth in the morning. Active biotin 1 mg capsule Take by mouth. Activ e erythromycin (ILOTYCIN) ophthalmic ointmentIndicat ions:Infection of eyelash follicle of right eye Administer 1.25 cm (0.5 inches total) to the right eye in the morning and 1.25 cm (0.5 inches total) before bedtime. Do all this for 7 days. 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); Posterior vitreous detachment, bilateral; Infection of eyelash follicle of right eye 04/07/2025 Travel from Last 3 Months Family History Medical History Relation Name Comments Arthritis Father Vincent Dementia Father Vincent Heart disease Father Vincent Breast cancer Maternal Aunt Arthritis Mother Mercedes Diabetes Mother Mercedes Heart disease Mother Mercedes Relation Name Status Comments Brother 1 Alive Brother 2 Alive Brother 3 Alive Father Vincent Alive Maternal Aunt Mother Mercedes (Age 93) Sister 1 Sister 2 Sister 3 Sister 4 Sister 5 Alive Sister 6 Alive Sister 7 Alive Sister 8 Alive Sister 9 Alive Sister 10 Alive Sister 11 Alive Sister 12 Alive Sister 13 Alive Sister 14 Alive Social History Tobacco Use Types Packs/Day Years Used Date Smoking Tobacco: Never Smokeless Tobacco: Never Alcohol Use Standard Drinks/Week Comments Never 0 (1 standard drink = 0.6 oz pur e alcohol) Childcare Answer Date Recorded Childcare Unknown 03/03/2019 Employment Answer Date Recorded Employment Unknown 03/03/2019 Purpose - Life Answer Date Recorded Purpose and direction in life Unknown Comments Unknown Sex and Gender Information Value Date Recorded Sex Assigned at Not on file Legal Sex Female 12:01 PM EDT Gender Identity Not on file Sexual Orientation Not on file Last Filed Vital Signs Vital Sign Reading Time Taken Comments Blood Pressure - - Pulse - - Temperature 36.7 C (98 F) 05/10/2021 2:01 PM EDT Respiratory Rate - - Oxygen Saturation - - Inhaled Oxygen Concentration - - Weight - - Height - - Body Mass Index - - Plan of Treatment Upcoming Encounters Date Type Department Care Team (Late st Contact Info) Description 04/12/2026 10:15 AM EDT Office Visit [facility] [address] [place] [phone] Long Bolivar OD [address] [place] [address] Health Maintenance Due Date Last Done Comments Depression Screening 1959 DTaP,Tdap and Td Vaccines (1 - Tdap) 1966 Zoster (Shingles) Vaccine (1 of 2) 1997 Fall Risk Screening 2012 Influenza Vaccine 05/23/2025 Tobacco Screening 04/07/2026 04/07/2025 Colonoscopy Discontinued 05/23/2021 Medical Devices Not on file Procedures Procedure Name Priority Date/Time Associated Diagnosis Comments COLONOSCOPY Routine 05/23/2021 from Last 3 Months or Most Recently Relevant to Health Maintenance Results * Colonoscopy (05/23/2021) us Not In System Ref Prov GI PROCEDURE ORDERABLES F inal Result MANUALLY TRANSCRIBED RESULTS from Last 3 Months or Most Recently Relevant to Health Maintenance Insurance [facility] Care Teams Casino Cashier Relationship Specialty Start Date End Date Pamela Moore, CD [employer] MAKE UP HELPER-ACCOUNTANT ASSISTANT PCP - General Nurse Practitioner 05/10/21
--- OUTSIDE RECORDS SUMMARY | 2025-04-23 11:17 | XMS_ITS | Encounter Summary ---
Author Organization [facility] Address [address] [place] [address] Care Team Providers Care Bailer Tenders Supervisor Name Role Phone Pamela Moore FRENCH BINDING FOLDER Unavailable [phone] Jorge French MD Primary Care Provider [phone] Encounter Details Date Type Department Care Team (Late st Contact Info) Description 04/21/2025 Orders Only [facility] [address] [place] [address] Pamela Moore NP [address] [place] [address] Gastroesophageal reflux disease, unspecified whether esophagitis present (Primary Dx); Elevated liver function tests; Diverticulosis of large intestine without hemorrhage; Black stools Social History Tobacco Use Types Packs/Day Years [...] EDT Office Visit [facility] [address] [facility] [address] [place] [address] Chaz Todd, DPM [address] [facility] 5 [place] [address] 07/14/2025 10:30 AM EDT Office Visit [facility] [address] [place] [phone] Pamela Moore, MARIKA [address] [place] [phone] 04/20/2026 10:00 AM EDT Office Visit [facility] [address] [place] [phone] Pamela Moore, MARIKA [address] [place] [phone] Scheduled Orders Name Type Priority Associated Diagnoses Orde r Schedule CBC and differential Lab Routine Gastroesophageal reflux disease, unspecified whether esophagitis present Diverticulosis of large intestine without hemorrhage Black stools Expected: 04/21/2025 (Approximate), Expires: 04/21/2026 Comprehensive metabolic panel Lab Routine Gastroesophageal reflux disease, unspecified whether esophagitis present Elevated liver function tests Diverticulosis of large intestine without hemorrhage Black stools Expected: 04/21/2025 (Approximate), Expires: 04/21/2026 Urinalysis with reflex microscopic (clean catch) Lab Routine Gastroesophageal reflux disease, unspecified whether esophagitis present Diverticulosis of large intestine without hemorrhage Black stools Expected: 04/21/2025 (Approximate), Expires: 04/21/2026 Occult blood x 1, stool Lab Routine Gastroesophageal reflux disease, unspecified whether esophagitis present Diverticulosis of large intestine without hemorrhage Black stools Expected: 04/21/2025 (Approximate), Expires: 04/21/2026 Iron level Lab Routine Gastroesophageal reflux disease, unspecified whether esophagitis present Diverticulosis of large intestine without hemorrhage Black stools Expected: 04/21/2025 (Approximate), Expires: 04/21/2026 documented as of this encounter Visit Diagnoses Diagnosis Gastroesophageal reflux disease, unspecified whether esophagitis present- Primary Elevated liver function tests Other abnormal blood chemistry Diverticulosis of large intestine without hemorrhage Black stools Nonspecific abnormal finding in stool contents documented in this encounter Additional Health Concerns Assessment Noted Time PHQ-9 Depression Total Score: 2 04/13/20 25 10:46 AM EDT documented as of this encounter Care Teams Bailer Tenders Supervisor Relationship Specialty Start Date End Date Pamela Moore NP [address] [place] [address] PCP - Ankit MURRY 04/22/24 Jorge French MD [address] [place] [address] PCP - General Family Medicine 07/22/24 documented as of this encounter
--- OUTSIDE RECORDS SUMMARY | 2025-04-23 11:17 | XMS_ITS | Clinical Summary ---
Author Organization [facility] Address [address] [place] [address] Care Team Providers Care Wire Saw Operator Name Role Phone Pamela Moore NP Unavailable [phone] Jorge French MD Primary Care Provider [phone] Allergies Active Allergy Reactions Criticality Noted Date Comments Ampicillin Hives Medium 02/18/2023 Medications omega-3 (fish oil) 1000 MG capsule Take 1 capsule by mouth 1 (one) time each day at the same time. Active benzonatate (Tessalon) 100 MG capsule Take 100 mg by mouth 3 (three) times a day as needed. Active Multiple Vitamin (MULTIVITAMIN ADULT PO) Multivitamin Active loratadine (Claritin Reditabs) 10 MG disintegrating tablet Take 10 mg by mouth Daily Pt taking OTC allergy relief 24hr 1 daily Active cholecalciferol (Vitamin D-3) 50 MCG (1999 UT) tabletIndications :Vitamin D Deficiency Take 2,000 Units by mouth Daily Active albuterol HFA 90 mcg/act inhalerIndication s:Acute bronchitis, unspecified Inhale 2 puffs every 6 (six) hours if needed for shortness of breath or wheezing 18 g 1 08/25/20 24 Active fluticasone (Flonase) 50 MCG/ACT nasal sprayIndications: Allergic rhinitis, unspecified seasonality, unspecified trigger Administer 2 sprays into each nostril Daily 16 g 3 08/25/20 24 Active levothyroxine (Synthroid, Levoxyl) 50 MCG tabletIndications :Hypothyroidism (acquired) Take 1 tablet (50 mcg) by mouth in the morning. Take before meals. 90 tablet 02/10/20 25 025 Active folic acid (Folvite) 1 MG tablet Take 1 mg by mouth in the morning. Active biotin 1 MG capsule Take by mouth Active alendronate (Fosamax) 70 MG tabletIndications :Age related osteoporosis, unspecified pathological fracture presence Take 1 tablet (70 mg) by mouth every 7 (seven) days 12 tablet 1 04/13/20 25 025 Active atorvastatin (Lipitor) 20 MG tabletIndications :Hyperlipidemia, unspecified Take 1 tablet (20 mg) by mouth at bedtime 90 tablet 1 04/13/20 25 025 Active ciprofloxacin (Cipro) 500 MG tabletIndications :Diverticulitis Take 1 tablet (500 mg) by mouth in the morning and 1 tablet (500 mg) before bedtime. Do all this for 10 days. 20 tablet 04/13/20 25 025 Active metroNIDAZOLE (Flagyl) 500 MG tabletIndications :Diverticulitis Take 1 tablet (500 mg) by mouth in the morning and 1 tablet (500 mg) in the evening and 1 tablet (500 mg) before bedtime. Do all this for 10 days. No alcohol use while taking this. 30 tablet 04/13/20 25 025 Active alendronate (Fosamax) 70 MG tabletIndications :Age related osteoporosis, unspecified pathological fracture presence Take 1 tablet (70 mg) by mouth every 7 (seven) days 12 tablet 1 01/04/20 25 025 Discontinu ed(Reorder ) atorvastatin (Lipitor) 20 MG tabletIndications :Hyperlipidemia, unspecified Take 1 tablet (20 mg) by mouth at bedtime 90 tablet 1 01/04/20 25 025 Discontinu ed(Reorder ) erythromycin (Romycin) 5 MG/GM ophthalmic ointment Apply 0.5 inches to affected eye(s) in the morning and 0.5 inches in the evening. 04/07/20 25 025 Active Problems Problem Noted Date Diagnosed Date Black stools 04/21/2025 Diverticulitis 04/13/2025 Assessment & Plan (04/13/2025 11:31 AM EDT): Diverticulitis Will treat with atb If not better go to ER Onychomycosis 04/13/2025 Assessment & Plan (04/13/2025 12:50 PM EDT): Would like referral to podiatry Class 1 obesity due to exces s calories without serious comorbidity with body mass index (BMI) of 30.0 to 30.9 in adult 08/18/2024 Assessment & Plan (04/13/2025 6:57 AM EDT): Discussed with patient their BMI (actual, verses recommended). We have also discussed lifestyle modifications: attempts to perform physical activity as chronic conditions allow, also to monitor dietary intake: increasing protein/fruits/veggies and lowering carb intake (unless contraindicated). Limit sodas, juices, and sugary drinks. Assessment & Plan (10/13/2024 6:46 AM EST): Discussed with patient their BMI (actual, verses recommended). We have also discussed lifestyle modifications: attempts to perform physical activity as chronic conditions allow, also to monitor dietary intake: increasing protein/fruits/veggies and lowering carb intake (unless contraindicated). Limit sodas, juices, and sugary drinks. Assessment & Plan (08/18/2024 10:30 AM EST): Discussed with patient their BMI (actual, verses recommended). We have also discussed lifestyle modifications: attempts to perform physical activity as chronic conditions allow, also to monitor dietary intake: increasing protein/fruits/veggies and lowering carb intake (unless contraindicated). Limit sodas, juices, and sugary drinks. Hyperglycemia 08/18/2024 Encounter for well woman exa m with routine gynecological exam 07/07/2024 Assessment & Plan (07/07/2024 11:02 AM EDT): BSE info Diet, exercise Fu as per PAP indication Vaginal discharge 07/07/2024 Assessment & Plan (07/07/2024 11:09 AM EDT): Health trax vaginitis, suspect BV,[id number] Exp: 09/21/24 [id number] Pelvic pain 07/07/2024 Assessment & Plan (08/18/2024 10:12 AM EST): Had a pelvic US: 5mm leiomyoma Minimal to no pelvic pain Assessment & Plan (07/07/2024 11:10 AM EDT): D/t limitation of bimanual exam and pt pain bilat adenexal region Will order pelvic US No family hx of cervical/ovarian/uterine cancer Fu in 6 weeks for results of testing Rotator cuff syndrome of right shoulder 05/10/20 24 Primary osteoarthritis, right shoulder 4 Primary hypertension 05/10/2024 Assessment & Plan (04/13/2025 12:50 PM EDT): Please check blood pressure daily and record [...] to take meds for this as well Assessment & Plan (01/12/2025 10:36 AM EDT): Please check blood pressure daily and record DASH diet Limit caffeine Contact office if chest pain, pressure, dizziness, shortness of breath, swelling legs Home readings low 140/60's Assessment & Plan (10/13/2024 10:04 AM EST): Please check blood pressure daily and record DASH diet Limit caffeine Take medication as directed Contact office if chest pain, pressure, dizziness, shortness of breath, swelling legs Recommend slow position changes Difference with home and office reads would lend itself to possible White Coat Hypertension, also I believe that anxiety is also a component here too Assessment & Plan (08/18/2024 10:27 AM EST): Please check blood pressure daily and record DASH diet Limit caffeine Take medication as directed Contact office if chest pain, pressure, dizziness, shortness of breath, swelling legs Recommend slow position changes Bring BP cuff to next appt in 8 weeks Assessment & Plan (06/10/2024 10:47 AM EDT): I have reviewed her reads at home, [...] loss Fu in 3 months for this Assessment & Plan (05/10/2024 9:51 AM EDT): Pt refuses script for anti hypertensive, states she will not take anything At this point I have advised that untreated HTN can lead to heart disease and stroke She cont to decline We will start with home blood pressure monitoring, as their could be a component of white coat hypertension Check blood pressure reads daily, fu in 4 weeks and bring monitor with her Fu in 4 weeks LORI (generalized anxiety disorder) 05/10/2024 Overview (10/13/2024): PHQ 9 score= 2, 10/14/24 LORI 7 score=1, 10/14/24 Assessment & Plan (04/13/2025 12:51 PM EDT): Declines meds for this Also offered counseling, at this time she has declined She will see about talking with her tank welder about this Assessment & Plan (10/13/2024 4:39 PM EST): LORI 7 score= 1, 10/14/24 PHQ 9 score= 2, 10/14/24 Does not want meds, does try to do things to keep her mind occupied, does feel that she is a very private person, difficulty for her to have trusting relationships with people, states she can try to do counseling, [facility] Will need to find counselor that takes medicare Assessment & Plan (05/10/2024 9:56 AM EDT): Declines meds Is open to counseling, would like to stay in [place] if possible Will refer to [facility] in [place] Encounter for subsequent [facility] wellness visit (AWV) in Medicare patient 04/14/2024 Assessment & Plan (04/13/2025 6:58 AM EDT): I have reviewed Ht/Wt/BMI, I have reviewed recommended vaccines for patient's age, as well as all recommended screenings I have reviewed available care everywhere notes as well. I have recommended eating a balanced diet, as well as activity as chronic conditions allow It is recommended that the patient have a yearly eye exam, as well as twice a year dental exams Fu in this office for wellness on a yearly basis Assessment & Plan (04/14/2024 9:31 AM EDT): I have reviewed Ht/Wt/BMI, I have reviewed recommended vaccines for patient's age, as well as all recommended screenings I have reviewed available care everywhere notes as well. I have recommended eating a balanced diet, as well as activity as chronic conditions allow It is recommended that the patient have a yearly eye exam, as well as twice a year dental exams Fu in this office for wellness on a yearly basis Primary osteoarthritis of left shoulder 03/08/20 24 Left knee DJD 03/08/2024 Other constipation 03/08/2024 Assessment & Plan (03/08/2024 10:37 AM EDT): Continue with fluids Add metamucil DAILY Dietary changes : higher fiber mcclellan beans, fruits/veggies Fu in 6 weeks Insomnia 11/05/2023 Cough in adult 11/05/2023 GERD (gastroesophageal reflux disease) Assessment & Plan (04/13/2025 6:56 AM EDT): Recommendations: freq small meals, nothing to eat or drink at least 2 hours prior to bed, limit caffeine, alcohol, as well as spicy foods Meds to limit or avoid if possible: NSAIDS Elevate HOB if possible Assessment & Plan (10/13/2024 6:46 AM EST): Recommendations: freq small meals, nothing to eat or drink at least 2 hours prior to bed, limit caffeine, alcohol, as well as spicy foods Meds to limit or avoid if possible: NSAIDS Elevate HOB if possible Assessment & Plan (08/18/2024 6:43 AM EST): Recommendations: freq small meals, nothing to eat or drink at least 2 hours prior to bed, limit caffeine, alcohol, as well as spicy foods Meds to limit or avoid if possible: NSAIDS Elevate HOB if possible Assessment & Plan (03/08/2024 10:36 AM EDT): No acute symptoms at this time Elevated liver function tests 11/05/2023 Diverticulosis of large intestine without hemorr yue 11/05/2023 Assessment & Plan (06/10/2024 10:48 AM EDT): Has some mild tenderness to LLQ likely related to above diagnosis Also has not had well women exam, will have her come back for a well women for pelvic examination to further evaluate the source of her pain Assessment & Plan (03/08/2024 10:35 AM EDT): Hx of diverticulosis, however her symptoms do not seem consistent with this Recommend metamucil DAILY Trigger ring finger of right hand 11/05/2023 Primary osteoarthritis of right knee 11/05/2023 Osteoporosis 11/05/2023 Overview (01/05/2024): DEXA scan 01/02/24: left FA -1.6, femur -0.8 osteopenia Assessment & Plan (04/13/2025 6:57 AM EDT): DEXA: 01/13 -1.6 left FA On fosamax Assessment & Plan (11/05/2023 10:44 AM EST): Needs DEXA scan Degenerative cervical disc 11/05/2023 Chronic osteoarthritis 11/05/2023 Assessment & Plan (04/14/2024 9:30 AM EDT): Activity as chronic conditions allow Vitamin D deficiency 11/05/2023 Assessment & Plan (08/18/2024 10:31 AM EST): Takes OTC vit d supplement Assessment & Plan (11/05/2023 10:44 AM EST): Check labs Pre-diabetes 11/05/2023 Assessment & Plan (04/13/2025 11:06 AM EDT): Recommend weight loss, exercises, and cutting back on carbs/sugary foods A1c 6.2% 04/13/25 Assessment & Plan (06/10/2024 10:49 AM EDT): Recommend weight loss, exercises, and cutting back on carbs/sugary foods Assessment & Plan (04/14/2024 9:30 AM EDT): Stable A1c Exercise, carb control Check labs every 6 months Hyperlipidemia 11/05/2023 Assessment & Plan (04/13/2025 6:58 AM EDT): On statin therapy Check labs yearly and prn dose changes Assessment & Plan (11/05/2023 10:45 AM EST): Check labs Allergic rhinitis 11/05/2023 Assessment & Plan (01/12/2025 6:33 AM EDT): Is prescribed oral antihistamine and flonase nasal spray Hypothyroidism (acquired) 11/05/2023 Assessment & Plan (04/13/2025 6:57 AM EDT): Currently taking levothyroxine Check labs yearly , prn dose changes or changes in sxs Assessment & Plan (01/12/2025 6:32 AM EDT): Currently taking levothyroxine Check labs yearly , prn dose changes or changes in sxs Assessment & Plan (10/13/2024 10:22 AM EST): Is currently taking 25mcg daily Current TSH 4.68 10/16 Does report heart palpitations at 50 mcg, but will be willing to try again Check labs yearly and prn dose changes Assessment & Plan (06/10/2024 10:48 AM EDT): Is currently taking 25mcg daily Will recheck labs toward end of the year Assessment & Plan (04/14/2024 9:30 AM EDT): Doing well no med changes Assessment & Plan (11/05/2023 10:44 AM EST): Check labs, no hypo or hyper symptoms at this time Encounter for screening mamm ogram for malignant neoplasm of breast 11/05/2023 Assessment & Plan (11/05/2023 10:45 AM EST): Due mid December 2023, will check dexa scan then too Chronic left shoulder pain 11/05/2023 Assessment & Plan (11/05/2023 10:46 AM EST): Will refer to Dr De La Fuente in [place] per pt request Arthritis of right knee 01/31/2023 Chronic laryngitis 01/31/2023 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 08/2023 ETD (Eustachian tube dysfunction), left 02/01/20 23 Hearing loss 01/31/2023 LPRD (laryngopharyngeal reflux disease) 02/01/20 23 Sensorineural hearing loss, bilateral 01/31/2023 Resolved Problems Problem Noted Date Diagnosed Date Resolved Date Elevated blood pressure reading 04/14/2024 05/10/2024 Assessment & Plan (04/14/2024 9:42 AM EDT): Low salt diet, limit caffeine Fu in 4 weeks Obesity (BMI 30-39.9) 03/08/20242023 Generalized abdominal pain 03/08/2024 0 03/08/2024 Abdominal bloating 03/08/2024 BMI 30.0-30.9,adult 11/05/2023 03/08/20 24 Encounters Date Type Department Care Team Description 04/21/2025 Orders Only [facility] [address] [place] [phone] Pamela Moore NP Gastroesophageal reflux disease, unspecified whether esophagitis present (Primary Dx); Elevated liver function tests; Diverticulosis of large intestine without hemorrhage; Black stools 04/20/2025 Telephone [facility] [address] [place] [phone] Pamela Moore NP 04/14/2025 Telephone [facility] [address] [place] [phone] Pamela Moore NP 04/13/2025 10:30 AM EDT Office Visit [facility] [address] [place] [phone] Pamela Moore NP Encounter for subsequent annual wellness visit (AWV) [...] Diverticulitis; LORI (generalized anxiety disorder) ; Onychomycosis 04/13/2025 Abstract [facility] [address] [facility] [address] [place] [phone] Chaz Todd DPM 04/13/2025 Bamboo flowsheet [facility] [address] [place] [phone] Pamela Moore NP 02/09/2025 Refill [facility] [address] [place] [phone] Pamela Moore NP Hypothyroidism (acquired) 02/09/2025 Telephone [facility] [address] [place] [address] Pamela Moore NP from Last 3 Months Family History Medical History Relation Name Comments Arthritis Father Heart disease Father Migrated famil y history Stroke Father Diabetes Mother Heart disease Mother Stroke Mother *Migrated famil y history Cancer Other family hx of Br east cancer Relation Name Status Comments Father Mother Alive Other Social History Tobacco Use Types Packs/Day Years [...] 3.2 oz) 04/13/2025 10:40 AM EDT Height 154.9 cm (5' 1 ) 10/13/2024 9:42 AM EST Body Mass Index 30.08 10/13/2024 9:42 AM EST Plan of Treatment Upcoming Encounters Date Type Department Care Team (Late st Contact Info) Description 04/28/2025 3:50 PM EDT Office Visit [facility] [address] [facility] [address] [place] [phone] Chaz Todd DPM [address] [facility] [address] [place] [address] 07/14/2025 10:30 AM EDT Office Visit [facility] [address] [place] [phone] Pamela Moore NP [address] [place] [address] 04/20/2026 10:00 AM EDT Office Visit [facility] [address] [place] [phone] Pamela Moore, ADMINISTRATIVE NURSING SUPERVISOR [address] [place] [address] Health Maintenance Due Date Last Done Comments Medicare Annual Wellness (AWV) 04/13/2026 0 04/13/2025, 04/14/2024, 04/14/2024, Additional history exists Colonoscopy Discontinued 05/23/2021 Colorectal Cancer Screening Discontinued CT Colonography Discontinued FIT-DNA Discontinued FIT Discontinued FOBT Discontinued Influenza Vaccine Discontinued Pneumococcal Vaccine: 65+ Years Discontinued Sigmoidoscopy Discontinued Procedures Procedure Name Priority Date/Time Associated Diagnosis Comments POCT GLYCOSYLATED HEMOGLOBIN (HGB A1C) Routine 04/13/2025 11:06 AM EDT Pre-diabetes from Last 3 Months Results * (ABNORMAL) POCT glycosylated hemoglobin (Hb A1C) docked device (04/13/2025 11:06 AM EDT) Hemoglobin A1C 6.2 Blood Venous blood specimen / Unknown 04/13/2025 11:06 AM EDT Pamela Moore NP POINT OF CARE TEST ENTER/EDIT O RDERABLES Final Result from Last 3 Months Insurance [employer] MEDICARE [employer]AGE Care Teams Wire Saw Operator Relationship Specialty Start Date End Date Pamela Moore NP [address] [place] [phone] PCP - Ankit MURRY 04/22/24 Jorge French MD [address] [place] [phone] PCP - General Family Medicine 07/22/24
--- OUTSIDE RECORDS SUMMARY | 2025-04-23 11:18 | XMS_ITS | Encounter Summary ---
Author Organization [facility] Address [address] [place] [address] Care Team Providers Care Pecan Cleaner Name Role Phone Jorge French MD Primary Care Provider Pamela Moore FOUR CORNER FORMER MACHINE OPERATOR Unavailable [phone] Unallocated, [facility] Provider Primary Care Provi oksana Jorge French MD Primary Care Provider [phone] Encounter Details Date Type Department Care Team (Late st Contact Info) Description 01/05/2024 Clinisync Result Encounter [facility] External Department Unsolicited Pamela Moore, FOUR CORNER FORMER MACHINE OPERATOR [address] [place] [address] Social History Tobacco Use Types Packs/Day Years [...] [facility] [address] [place] [address] [place] [address] Chaz Todd, DPNelson [address] [facility] 5 [place] [address] 07/14/2025 10:30 AM EDT Office Visit [facility] [address] [place] [phone] Pamela Mooer NP [address] [place] [phone] 04/20/2026 10:00 AM EDT Office Visit [facility] [address] [place] [phone] Pamela Moore NP [address] [place] [phone] documented as of this encounter Procedures Procedure Name Priority Date/Time Associated Diagnosis Comments XR DEXA AXIAL SKELETON 01/05/2024 8:46 AM EDT documented in this encounter Results * XR DEXA AXIAL SKELETON (01/05/2024 8:46 AM EDT) Anatomical Region Laterality Modality Other 01/05/2024 8:46 AM EDT Narrative 01/05/2024 8:49 AM EDT The [address] [address] XRay Report Signed Patient: BERNARD PONCE MR#: [id number] : 1945 Acct:[id number] Age/Sex: 78 / F ADM Date: 01/05/24 Loc: MAMMO Attending Dr: Pamela Moore NP Ordering Physician: Pamela Moore NP Date of Service: 01/05/24 Procedure(s): XR DEXA axial skeleton Accession Number(s): [id number] cc: Pamela Moore NP [place] [id number] Patient Name: BERNARD PONCE MRN: [id number] date: 1945 Sex: F Assigned Patient Location: MAMMO [facility] Accession/Order Number: [id number] Exam Date: 01/05/2024 08:17 Report Date: 01/05/2024 08:46 At the request of: PAMELA MOORE Procedure: XR DEXA axial skeleton EXAMINATION: XR DEXA axial skeleton, 01/05/2024 8:17 AM EDT HISTORY: Age Related Osteoporosis M81.0 COMPARISON: 2020, 2018, 2014 TECHNIQUE: Dual-energy X-ray absorptiometry (DEXA) bone density study performed for the axial skeleton. HISTORY: Age Related Osteoporosis M81.0 FINDINGS: Bone mineral density of the left forearm radius is 0.596 g/sq cm. T score -1.6. WHO Classification: Osteopenia. Total femoral bone mineral density 0.906 g/sq cm. T score -0.8. WHO classification: Normal XR/XR DEXA axial skeleton IMPRESSION: Osteopenia. Moderate fracture risk. Electronically authenticated by: WEST MARTINEZ Date: 01/05/2024 08:46 Dictated By: West Martinez M.D. Signed By: 01/05/24 0849 DD/ 0846 TD/TT: Bicycle Ii Assembler: Procedure Note Radiology, Radiologist, MD - 01/05/2024 [place] [address] XRay Report Signed Patient: BERNARD PONCE EMR#: [id number] : 8Acct:[id number] Age/Sex: 78 / FADM Date: 01/05/24 Loc: MAMMO Attending Dr: Pamela Moore NP Ordering Physician: Pamela Moore NP Date of Service: 01/05/24 Procedure(s): XR DEXA axial skeleton Accession Number(s): [id number] cc: Pamela Moore NP The [address] [address] Patient Name: BERNARD PONCE MRN: [id number] date: 1945 Sex: F Assigned Patient Location: MAMMO [facility] Accession/Order Number: [id number] Exam Date: 01/05/2024 08:17 Report Date: 01/05/2024 08:46 At the request of: PAMELA MOORE Procedure: XR DEXA axial skeleton EXAMINATION: XR DEXA axial skeleton, 01/05/2024 8:17 AM EDT HISTORY: Age Related Osteoporosis M81.0 COMPARISON: 2020, 2018, 2014 TECHNIQUE: Dual-energy X-ray absorptiometry (DEXA) bone density study performed for the axial skeleton. HISTORY: Age Related Osteoporosis M81.0 FINDINGS: Bone mineral density of the left forearm radius is 0.596 g/sq cm. T score -1.6. WHO Classification: Osteopenia. Total femoral bone mineral density 0.906 g/sq cm. T score -0.8. WHO classification: Normal XR/XR DEXA axial skeleton IMPRESSION: Osteopenia. Moderate fracture risk. Electronically authenticated by: WEST MARTINEZ Date: 01/05/2024 08:46 Dictated By: West Martinez M.D. Signed By:01/05/24 0849 DD/ TD/TT: Bicycle Ii Assembler: Pamela Moore NP [facility] Final Result documented in this encounter Visit Diagnoses Not on filedocumented in this encounter Care Teams Pecan Cleaner Relationship Specialty Start Date End Date Jorge French MD [address] [place] [address] PCP - General Family Medicine 11/05/23 07/06/24 Pamela Moore NP [address] [place] [address] PCP - Ankit MURRY 04/22/24 Unallocated, [facility], [address] [place] [address] PCP - General Family Medicine 07/07/24 07/21/24 Jorge French MD [address] [place] [address] PCP - General Family Medicine 07/22/24 documented as of this encounter
--- OUTSIDE RECORDS SUMMARY | 2025-04-23 11:18 | XMS_ITS | Encounter Summary ---
Author Organization [facility] Address [address] [place] [address] Care Team Providers Care Stores Clerk Name Role Phone Jorge French MD Primary Care Provider Pamela Moore NETWORKING ENGINEER Unavailable [phone] Unallocated, [facility] Provider Primary Care Provi oksana Jorge French MD Primary Care Provider Encounter Details Date Type Department Care Team (Late st Contact Info) Description 01/05/2024 Clinisync Result Encounter [facility] Department Unsolicited Pamela Moore, NETWORKING ENGINEER [address] [place] [address] Social History Tobacco Use Types Packs/Day Years [...] [facility] [address] [place] [address] Chaz Todd, DPNelson [address] [facility] [address] [place] [address] 07/14/2025 10:30 AM EDT Office Visit [facility] [address] [place] [phone] Pamela Moore NP [address] [place] [phone] 04/20/2026 10:00 AM EDT Office Visit [facility] [address] [place] [phone] Pamela Moore NP [address] [place] [phone] documented as of this encounter Procedures Procedure Name Priority Date/Time Associated Diagnosis Comments MM TOMOSYNTHESIS SCREENING BI 01/05/2024 10:30 AM EDT documented in this encounter Results * MM TOMOSYNTHESIS SCREENING BI (01/05/2024 10:30 AM EDT) Anatomical Region Laterality Modality Other 01/05/2024 10:3 0 AM EDT Narrative 01/05/2024 10:31 AM EDT The [address] [address] Mammography Report Signed Patient: BERNARD PONCE MR#: [id number] : 1945 Acct:[id number] Age/Sex: 78 / F ADM Date: 01/05/24 Loc: MAMMO Attending Dr: Pamela Moore NP Ordering Physician: Pamela Moore NP Results: Date of Service: 01/05/24 Follow Up: Procedure(s): MM tomosynthesis screening BI Accession Number(s): [id number] cc: Pamela Moore NP Patient Name: BERNARD PONCE MR#: [id number] : 1945 Exam Date: 01/05/2024 Ordering Doctor: COCO Moore CNP RADIOLOGY REPORT PROCEDURE: MM TOMOSYNTHESIS SCREENING BI COMPARISON: MG MAMM SCREEN 3D DAVID CAD, 09/27/2021. MG MAMM SCREEN 3D DAVID CAD, 01/03/2023. INDICATIONS: Screening Calculator Name NCI Breast Cancer Risk Assessment Tool 5 Year Breast Cancer Risk 1.00% Lifetime Breast Cancer Risk 2.10% Personal Breast Cancer No Personal Ovarian Cancer No Treatments None Family Cancers Aunt-maternal with breast cancer at age 60. LOCATION: [facility] BREAST COMPOSITION: Scattered areas fibroglandular density. FINDINGS: DIAGNOSTIC CATEGORY 2--BENIGN FINDING. NO CHANGE FROM COMPARISON. Scattered benign-appearing calcifications are present. Scattered benign-appearing lymph nodes are present. RIGHT BREAST: No significant suspicious finding. LEFT BREAST: No significant suspicious finding. RECOMMENDATIONS: ROUTINE MAMMOGRAM AND CLINICAL EVALUATION IN 12 MONTHS. PLEASE NOTE: A NORMAL MAMMOGRAM DOES NOT EXCLUDE THE POSSIBILITY OF BREAST CANCER. A CLINICALLY SUSPICIOUS PALPABLE LUMP SHOULD BE BIOPSIED. Dictated by: Jermaine Rosenberg MD on 01/05/2024 at 10:28 Approved by: Jermaine Rosenberg MD on 01/05/2024 at 10:30 Dictated By: Jermaine Rosenberg M.D. Signed By: 01/05/24 1031 DD/ 1030 TD/TT: Medical Communication Specialist: Procedure Note Radiology, Radiologist, MD - 01/05/2024 [place] [address] Mammography Report Signed Patient: BERNARD PONCE EMR#: [id number] : 8Acct:[id number] Age/Sex: 78 / FADM Date: 01/05/24 Loc: MAMMO Attending Dr: Pamela Moore NP Ordering Physician: Pamela Moore NPResults: Date of Service: 01/05/24Follow Up: Procedure(s): MM tomosynthesis screening BI Accession Number(s): [id number] cc: Pamela Moore NP Patient Name: BERNARD PONCE MR#: [id number] : 1945 Exam Date: 01/05/2024 Ordering Doctor: COCO Moore CNP RADIOLOGY REPORT PROCEDURE: MM TOMOSYNTHESIS SCREENING BI COMPARISON: MG MAMM SCREEN 3D DAVID CAD, 09/27/2021. MG MAMM SCREEN 3DBIL CAD, 01/03/2023. INDICATIONS: Screening Calculator Name NCI Breast Cancer Risk Assessment Tool 5 Year Breast Cancer Risk 1.00% Lifetime Breast Cancer Risk 2.10% Personal Breast Cancer No Personal Ovarian Cancer No Treatments None Family Cancers Aunt-maternal with breast cancer at age 60. LOCATION: [facility] BREAST COMPOSITION: Scattered areas fibroglandular density. FINDINGS: DIAGNOSTIC CATEGORY 2--BENIGN FINDING. NO CHANGE FROM COMPARISON. Scattered benign-appearing calcifications are present. Scattered benign-appearing lymph nodes are present. RIGHT BREAST: No significant suspicious finding. LEFT BREAST: No significant suspicious finding. RECOMMENDATIONS: ROUTINE MAMMOGRAM AND CLINICAL EVALUATION IN 12 MONTHS. PLEASE NOTE: A NORMAL MAMMOGRAM DOES NOT EXCLUDE THE POSSIBILITY OFBREAST CANCER. A CLINICALLY SUSPICIOUS PALPABLE LUMP SHOULD BE BIOPSIED. Dictated by: Jermaine Rosenberg MD on 01/05/2024 at 10:28 Approved by: Jermaine Rosenberg MD on 01/05/2024 at 10:30 Dictated By: Jermaine Rosenberg M.D. Signed By:01/05/24 1031 DD/ 1030 TD/TT: Medical Communication Specialist: Pamela Moore NP [facility] Final Result documented in this encounter Visit Diagnoses Not on filedocumented in this encounter Care Teams Stores Clerk Relationship Specialty Start Date End Date Jorge French MD [address] [place] [address] PCP - General Family Medicine 11/05/23 07/06/24 Pamela Moore NP [address] [place] [address] PCP - Ankit MURRY 04/22/24 Unallocated, [facility]oms Provider, [address] [place] [address] PCP - General Family Medicine 07/07/24 07/21/24 Jorge French MD [address] [place] [address] PCP - General Family Medicine 07/22/24 documented as of this encounter
--- OUTSIDE RECORDS SUMMARY | 2025-04-23 11:18 | XMS_ITS | CCD ---
Author Organization [facility] Care Team Providers Care Multiple Drum Sander Name Role Phone AICHHOLZ, RECEIVER STOCKER PAMELA Admitting Unavailable AICHHOLZ, RECEIVER STOCKER PAMELA Attending Unavailable AICHHOLZ, RECEIVER STOCKER PAMELA Primary Care Unavailable AICHHOLZ, RECEIVER STOCKER PAMELA Consulting Unavailable AICHHOLZ, RECEIVER STOCKER PAMELA Admitting Unavailable AICHHOLZ, RECEIVER STOCKER PAMELA Attending Unavailable AICHHOLZ, RECEIVER STOCKER PAMELA Primary Care Unavailable AICHHOLZ, RECEIVER STOCKER PAMELA Consulting Unavailable AICHHOLZ, RECEIVER STOCKER PAMELA Admitting Unavailable AICHHOLZ, RECEIVER STOCKER PAMELA Attending Unavailable AICHHOLZ, RECEIVER STOCKER PAMELA Primary Care Unavailable AICHHOLZ, RECEIVER STOCKER PAMELA Consulting Unavailable AICHHOLZ, RECEIVER STOCKER PAMELA Admitting Unavailable AICHHOLZ, RECEIVER STOCKER PAMELA Attending Unavailable AICHHOLZ, RECEIVER STOCKER PAMELA Primary Care Unavailable AICHHOLZ, RECEIVER STOCKER PAMELA Consulting Unavailable AICHHOLZ, RECEIVER STOCKER PAMELA Admitting Unavailable AICHHOLZ, RECEIVER STOCKER PAMELA Attending Unavailable AICHHOLZ, RECEIVER STOCKER PAMELA Primary Care Unavailable AICHHOLZ, RECEIVER STOCKER PAMELA Consulting Unavailable AICHHOLZ, RECEIVER STOCKER PAMELA Admitting Unavailable AICHHOLZ, RECEIVER STOCKER PAMELA Attending Unavailable AICHHOLZ, RECEIVER STOCKER PAMELA Primary Care Unavailable AICHHOLZ, RECEIVER STOCKER PAMELA Consulting Unavailable AICHHOLZ, RECEIVER STOCKER PAMELA Admitting Unavailable AICHHOLZ, RECEIVER STOCKER PAMELA Attending Unavailable AICHHOLZ, RECEIVER STOCKER PAMELA Primary Care Unavailable AICHHOLZ, RECEIVER STOCKER PAMELA Consulting Unavailable JORGE GONCALVES Primary Care Unavailable Tab Ibarra Admitting Unavail Tab Jauregui Attending Unavail Jorge Quijano MD Primary Care Provider MD Jorge Goncalves Primary Care Provider [phone] DO Braxton Escalante Attending Provider [phone] PAMELA MOORE Primary Care Unavailable BRAXTON ESCALANTE Referring Unavailable BRAXTON ESCALANTE Referring Unavailable PAMELA MOORE Primary Care Unavailable MD Jorge Goncalves Primary Care Provider [phone] DO Braxton Escalante Attending Provider Braxton Escalante Attending Unavailable Jorge Goncalves Primary Care Unavailable Braxton Escalante Admitting Unavailable Braxton Escalante Attending Unavailable Jorge Goncalves Primary Care Unavailable Braxton Escalante Admitting Unavailable Aichholz SALT MANAGER, Pamela Unavailable Unallocated , Noms Provider Primary Care Provi oksana Jorge Goncalves MD Primary Care Provider Aichholz RADAR SCIENTIST-RECEIVER STOCKERPamela Primary Care Provider Aichholz RADAR SCIENTIST-RECEIVER STOCKER, Pamela Mendoza Primary Care Provider [place] Attending Unavailabl e PAMELA MOORE J Referring Unavailable TAVOHHOLZPAMELA Primary Care Unavailable AICHHOLZ, PAMELA Attending Unavailable AICHHOLZ, PAMELA Attending Unavailable AICHHOLZ, PAMELA Attending Unavailable AICHHOLZ, PAMELA Attending Unavailable AICHHOLZ, PAMELA Attending Unavailable AICHHOLZ, PAMELA Attending Unavailable AICHHOLZ, PAMELA Attending Unavailable Allergies Allergy Classification Reported Allergen(s) Allergy Type Date of Onset Reaction(s) Facility (3 sources) Ampicillin; Translations: [AMPICILLIN] Drug Allergy 02-10-[address] [facility] Repository (20 sources) Ampicillin Drug Allergy 02-10-2012 [facility] (1 source) Ampicillin Drug Allergy 10-04-2021 [facility] Repository Medications Current Medications Medication Drug Class(es) Dates Sig (Normalized) Sig (Original) 8 hr acetaminophen 650 mg extended release oral tablet (2 sources) acetaminophen (TYLENOL ARTHRITIS) 650 mg 8 hr tablet Active acetaminophen 300 mg / codeine phosphate 30 mg oral tablet (2 sources) Opioid Agonist Start: 02-28-2023 take 1 tablet by mouth every six hours as needed for pain acetaminophen-codei ne (TYLENOL #3) 300-30 mg per tablet TAKE 1 TABLET BY MOUTH EVERY 6 HOURS NEEDED for moderate pain for up to 3 days 02/28/2023 Active [id number] 200 actuat albuterol 0.09 mg/actuat metered dose [...] April 29, 2024 12:00am Start: 04-14-2024 End: 07-06-2025 alendronate (Fosamax) 70 MG tablet Indications: Age related osteoporosis, unspecified pathological fracture presence Take 1 tablet (70 mg) by mouth every 7 (seven) days 12 tablet 1 04/13/2025 07/06/2025 Active Start: 03-14-2021 take 1 tablet by [...] MG PO April 29, 2024 12:00am Start: 02-28-2022 End: 07-12-2025 take 1 tablet by mouth at bedtime atorvastatin (Lipitor) 20 MG tablet Indications: Hyperlipidemia, unspecified Take 1 tablet (20 mg) by mouth at bedtime 90 tablet 1 04/13/2025 07/12/2025 Active benzonatate 100 mg oral capsule (20 sources) Non-narcotic Antitussive take 1 capsule by mouth three times daily as needed benzonatate (Tessalon) 100 MG capsule Take 100 mg by mouth 3 (three) times a day as needed. Active biotin 1 mg oral capsule (5 sources) biotin 1 MG caps ule Take by mouth Active cetirizine hydrochloride 10 mg oral tablet (2 sources) Histamine-1 Receptor Antagonist Start: take 1 tablet [...] (5000 UT) capsule Vitamin D3 0 Active ciprofloxacin 500 mg oral tablet (3 sources) Quinolone Antimicrobial Start: 04-13-2025 End: 04-23-2025 take 1 tablet by mouth in the morning ciprofloxacin (Cipro) 500 MG tablet Indications: Diverticulitis Take 1 tablet (500 mg) by mouth in the morning and 1 tablet (500 mg) before bedtime. Do all this for 10 days. 20 tablet 04/13/2025 04/23/2025 Active docosahexaenoic acid 120 mg / eicosapentaenoic acid 180 mg oral capsule (20 sources) take 1 capsule by mouth once daily omega-3 (fish oil) 1000 MG capsule Take 1 capsule by mouth 1 (one) time each day at the same time. Active docosahexaenoic acid-epa 120-180 mg capsule Take 1 capsule by mouth. Active erythromycin 0.005 mg/mg ophthalmic ointment (4 sources) Macrolide, Macrolide Antimicrobial Start: 04-07-2025 End: 04-14-2025 erythromycin (Romycin) 5 MG/GM ophthalmic ointment Apply 0.5 inches to affected eye(s) in the morning and 0.5 inches in the evening. 04/07/2025 04/14/2025 Active Start: 04-07-2025 End: 04-14-2025 erythromycin (ILOTYCIN) opht halmic ointment Indications: Infection of eyelash follicle of right eye Administer 1.25 cm (0.5 inches total) to the right eye in the morning and 1.25 cm (0.5 inches total) before bedtime. Do all this for 7 days. 3.5 g 04/07/2025 04/14/2025 Active fluticasone propionate 0.05 mg/actuat metered dose nasal spray (20 sources) Corticosteroid Start: 05-02-2021 End: 09-24-2024 take 2 spray(s) nasal route [...] in the morning. 05/10/2019 08/25/2024 Discontinued (Reorder) folic acid 1 mg oral tablet (5 sources) take 1 tablet by mouth in the morning folic acid (Folvite) 1 MG tablet Take 1 mg by mouth in the morning. Active furosemide 20 mg oral tablet (18 sources) Loop Diuretic End: furosemide (LASIX) 20 mg tablet Take 1 tablet (20 mg total) by mouth. Active levothyroxine sodium 0.05 mg oral tablet (20 sources) l-Thyroxine Start: End: take 1 tablet by mouth before mealtime levothyroxine (Synthroid, Levoxyl) 50 MCG tablet Indications: Hypothyroidism (acquired) Take 1 tablet (50 mcg) by mouth in the morning. Take before meals. 90 tablet 02/09/2025 05/10/2025 Active Start: 07-13-2024 End: 10-13-2024 take 1 tablet by mouth before mealtime levothyroxine (Synthroid) 25 MCG tablet Indications: Hypothyroidism (acquired) (CMS/HCC) Take 1 tablet (25 mcg) by mouth in the morning. Take before meals. 90 tablet 07/13/2024 10/13/2024 Discontinued (Ineffective) Start: 02-22-2021 End: 2024 take 1 tablet by mouth before mealtime levothyroxine (Synthroid, Levoxyl) 50 MCG tablet Indications: Hypothyroidism (acquired) (CMS/HCC) Take 1 tablet (50 mcg) by mouth in the morning. Take before meals. 30 tablet 1 10/13/2024 2024 Active loratadine 10 mg disintegrating oral tablet (20 sources) take 1 tablet by dacia once daily loratadine (Claritin Reditabs) 10 MG disintegrating tablet Take 10 mg by mouth Daily Pt taking OTC allergy relief 24hr 1 daily Active take 1 tablet by mouth in the mo rn loratadine (CLARITIN) 10 mg tablet Take 1 tablet (10 mg total) by mouth in the morning. Active mag lysin,malate-potassium cit 125-47.5 mg tablet (1 source) mag lysin,malate-potassium cit 125-47.5 mg tablet Take by mouth. Active magnesium sulfate 0.0277 meq/ml / potassium sulfate 0.0374 meq/ml / sodium sulfate 0.257 meq/ml oral solution (2 sources) Star t: 04-22 21 sodium,potassium,mag sulfates (SUPREP BOWEL PREP KIT) 17.5-3.13-1.6 gram recon soln Indications: Colon cancer screening 177 ml,actual weight, 2 times daily, Oral 354 mL 05/10/2021 Active meclizine hydrochloride 25 mg oral tablet (10 sources) Antiemetic End: 06-22 24 take 1 tablet by mouth four times daily as needed for dizziness meclizine (Antivert) 25 MG tablet Take 1 tablet by mouth 4 (four) times a day as needed for dizziness 07/07/2024 Discontinued (Therapy completed) metroNIDAZOLE 500 mg oral tablet (3 sources) Nitroimidazole Antimicrobial Star t: 03-23 End: 11-11 take 1 tablet by mouth in the morning, then take 1 tablet by mouth in the evening, then take 1 tablet by mouth at bedtime metroNIDAZOLE (Flagyl) 500 MG tablet Indications: Diverticulitis Take 1 tablet (500 mg) by mouth in the morning and 1 tablet (500 mg) in the evening and 1 tablet (500 mg) before bedtime. Do all this for 10 days. No alcohol use while taking this. 30 tablet 04/13/2025 04/23/2025 Active Multiple Vitamin (MULTIVITAMIN ADULT PO) (20 sources) Multiple Vitamin (MULTIVITAMIN ADULT PO) Multivitamin Active Multiple Vitamin (MULTIVITAMIN ADULT PO) Multivitamin 0 Active MULTIVITAMIN ORAL (2 sources) MULTIVITAMIN ORA L Take by mouth. Active naproxen sodium 220 mg oral tablet (2 sources) Nonsteroidal Anti-inflammatory Drug naproxen sodium ( ALEVE) 220 mg tablet Take 220 mg by mouth. Active papaya allergenic extract (20 sources) Non-Standardized Food Allergenic Extract End: 10-13-2024 Papaya 100 MG tablet Papaya 10/13/2024 Discontinued (Therapy completed) Papaya 100 MG ta blet Papaya Active Papaya 100 MG ta blet Papaya 0 Active simvastatin 40 mg oral tablet (2 sources) HMG-CoA Reductase Inhibitor Start: 03-28-2021 take 1 tablet by mouth once daily simvastatin (ZOCOR) 40 mg tablet Take 40 mg by mouth nightly. 03/28/2021 Active Problems Active Problems Problem Classification Problem Date Documented Da te Episodic/Chronic Acute bronchitis (1 source) Acute bronchitis; Translations: [Acute bronchitis, unspecified] 08-25-2024 Episodic Anxiety disorders (20 sources) Generalized anxiety disorder; Translations: [Generalized anxiety disorder] Onset: 4 05-10-2024 Chronic Cataract (3 sources) Bilateral age-related nuclear cataracts; Translations: [Age-related nuclear cataract, bilateral] Onset: 5 04-01-2024 Chronic Disorders of lipid metabolism (20 sources) Hyperlipidemia, unspecified; Translations: [Hyperlipidemia] Onset: 2 Chronic Diverticulosis and diverticulitis (20 sources) Diverticulum of large intestine without hemorrhage; Translations: [Diverticulosis of large intestine without perforation or abscess without bleeding] Onset: 4 11-05-2023 Chronic Esophageal disorders (20 sources) Laryngopharyngeal reflux; Translations: [Gastro-esophageal reflux disease without esophagitis] Onset: 3 01-31-2023 Chronic Essential hypertension (20 sources) Essential hypertension; Translations: [Essential (primary) hypertension] Onset: 4 05-10-2024 Chronic Gastrointestinal hemorrhage (2 sources) Black feces; Translations: [Melena] Onset: 5 04-21-2025 Episodic Inflammation; infection of eye (except that caused by tuberculosis or sexually transmitteddisease) (2 sources) Eyelash follicle finding; Translations: [Unspecified inflammation of eyelid] Onset: 5 04-07-2025 Episodic Mycoses (7 sources) Onychomycosis; Translations: [Tinea unguium] Onset: 5 04-13-2025 Episodic Nutritional deficiencies (20 sources) Vitamin D deficiency, unspecified; Translations: [Vitamin D deficiency] Onset: 3 11-05-2023 Chronic Osteoarthritis (20 sources) Arthritis of right knee; Translations: [Unilateral primary osteoarthritis, right knee] Onset: 3 01-31-2023 Chronic Osteoporosis (20 sources) Osteoporosis; Translations: [Age-related osteoporosis without current pathological fracture] Onset: 4 11-05-2023 Chronic Other connective tissue disease (2 [...] externa; Translations: [Other otitis externa, bilateral] Onset: 3 01-31-2023 Chronic Other ear and sense organ disorders (20 sources) Hearing loss; Translations: [Unspecified hearing loss, unspecified ear] Onset: 3 01-31-2023 Chronic Other ear and sense organ disorders (20 sources) Sensorineural hearing loss, bilateral; Translations: [Sensorineural hearing loss, bilateral] Onset: 3 01-31-2023 Chronic Other eye disorders (1 source) Bilateral posterior vitreous detachment; 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, bilateral] 04-07-2025 Chronic Other eye disorders (1 source) Vitreous degeneration, bilateral; 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, bilateral] Onset: 5 Chronic Other non-traumatic joint disorders (3 sources) Pain in right shoulder; Translations: [Right shoulder pain] Onset: 4 04-26-2024 Episodic Other nutritional; endocrine; and metabolic disorders (1 source) Obesity; Translations: [Obesity, unspecified] Onset: 3 09-17-2023 Chronic Other nutritional; endocrine; and metabolic disorders (20 sources) Obesity caused by energy imbalance; Translations: [Class 1 obesity due to excess calories without serious comorbidity with body mass index (BMI) of 30.0 to 30.9 in adult] Onset: 4 08-18-2024 Chronic Other screening for suspected conditions (not mental disorders or infectious disease) (20 sources) Other specified abnormal findings of blood chemistry; Translations: [Other abnormal blood chemistry] Onset: 2 Episodic Other upper respiratory disease (20 sources) Chronic laryngitis; Translations: [Chronic laryngitis] Onset: 3 01-31-2023 Chronic Other upper respiratory disease (20 sources) Allergic rhinitis; Translations: [Allergic rhinitis, unspecified] Onset: 4 11-05-2023 Chronic Spondylosis; intervertebral disc disorders; other back problems (20 sources) Degeneration of cervical intervertebral disc; Translations: [Other cervical disc degeneration, unspecified cervical region] Onset: 4 11-05-2023 Chronic Thyroid disorders (20 sources) Hypothyroidism, unspecified; Translations: [Acquired hypothyroidism] Onset: 3 Chronic Unclassified (1 source) Blurred Vision Onset: 5 Past or Other Problems Problem Classification Problem Date Documented Da te Episodic/Chronic Abdominal pain (20 sources) Generalized abdominal pain; Translations: [Generalized abdominal pain] Onset: 03-08-2024 Resolved: 03-08-2024 03-08-2024 Episodic Blindness and vision defects (3 sources) Presbyopia; Translations: [Presbyopia] 04-01-2024 Episodic Diabetes mellitus without complication (20 sources) Prediabetes; Translations: [Prediabetes] Onset: 11-13-2022 11-05-2023 Episodic Immunizations and screening for infectious disease (1 source) Encounter for screening for other viral diseases; Translations: [ENC SCREENING FOR OTH VIRAL DZ] Onset: 05-09-2022 Episodic Mood disorders (20 sources) Mood disorders Onset: 04-14-2024 Resolved: 04-13-2025 04-14-2024 Other circulatory disease (20 sources) Elevated [...] glands] 04-01-2024 Episodic Other female genital disorders (20 sources) Vaginal discharge; Translations: [Other specified noninflammatory [...] adult] Onset: 11-05-2023 Resolved: 08-18-2024 11-05-2023 Chronic Otitis media and related conditions (20 sources) Dysfunction of left eustachian tube; Translations: [Unspecified Eustachian tube disorder, left ear] Onset: 01-31-2023 01-31-2023 Episodic Residual codes; unclassified (20 sources) Insomnia; Translations: [Insomnia, unspecified] Onset: 11-05-2023 11-05-2023 Episodic Results Test Name Value Interpretation Reference Range Facility HbA1c (Bld) [Mass fraction]o n 04-13-2025 Interpretation and review of laboratory results Abnormal [facility] - Hematology and Cell countson 04-13-2025 HbA1c (Bld) [Mass fraction] 6.2 % [facility] MM TOMOSYNTHESIS SCREENING B Ion 01-05-[address] [address] Mammography Report Signed Patient: HEIDY PONCE MR#: [id number] : 1945 Acct:[id number] Age/Sex: 79 / F ADM Date: 01/05/25 Loc: MAMMO Attending Dr: Pamela Moore SALT MANAGER Ordering Physician: Pamela Moore NP Results: Date of Service: 01/05/25 Follow Up: Procedure(s): MM tomosynthesis screening BI Accession Number(s): [id number] cc: Pamela Moore NP Patient Name: HEIDY PONCE MR#: [id number] : 1945 Exam Date: 01/05/2025 Ordering Doctor: COCO Moore RECEIVER STOCKER RADIOLOGY REPORT PROCEDURE: MM TOMOSYNTHESIS SCREENING BI COMPARISON: MM TOMOSYNTHESIS SCREENING BI, 01/05/2024. MG MAMM SCREEN 3D DAVID CAD, 01/03/2023. MG MAMM SCREEN 3D DAVID CAD, 09/27/2021. MG MAMM DAVID SCRN W CAD DIG, 04/21/2013. INDICATIONS: Screening Calculator Name NCI Breast Cancer Risk Assessment Tool 5 Year Breast Cancer Risk 1.00% Lifetime Breast Cancer Risk 1.90% Personal Breast Cancer No Personal Ovarian Cancer No Treatments None Family Cancers Aunt-maternal with breast cancer at age 60. LOCATION: [facility] BREAST COMPOSITION: There are scattered areas of fibroglandular density. FINDINGS: DIAGNOSTIC CATEGORY 1--NEGATIVE. RIGHT BREAST: No significant suspicious finding. LEFT BREAST: No significant suspicious finding. RECOMMENDATIONS: ROUTINE MAMMOGRAM AND CLINICAL EVALUATION IN 12 MONTHS. PLEASE NOTE: A NORMAL MAMMOGRAM DOES NOT EXCLUDE THE POSSIBILITY OF BREAST CANCER. A CLINICALLY SUSPICIOUS PALPABLE LUMP SHOULD BE BIOPSIED. Dictated by: Jaime Lazaro DO on 01/05/2025 at 14:12 Approved by: Jaime Lazaro DO on 01/05/2025 at 14:14 Dictated By: Jaime Lazaro M.D. Signed By: 01/05/25 1415 DD/ 1414 TD/TT: Transverse Abdominal Muscle Nurse: [facility] Radiology, Radiologist, MD - 01/05/2025 [place] [address] Mammography Report Signed Patient: HEIDY PONCE MR#: [id number] : 1945 Acct:[id number] Age/Sex: 79 / F ADM Date: 01/05/25 Loc: MAMMO Attending Dr: Pamela Moore NP Ordering Physician: Pamela Moore NP Results: Date of Service: 01/05/25 Follow Up: Procedure(s): MM tomosynthesis screening BI Accession Number(s): [id number] cc: Pamela Moore NP Patient Name: HEIDY PONCE MR#: [id number] : 1945 Exam Date: 01/05/2025 Ordering Doctor: COCO Moore RECEIVER STOCKER RADIOLOGY REPORT PROCEDURE: MM TOMOSYNTHESIS SCREENING BI COMPARISON: MM TOMOSYNTHESIS SCREENING BI, 01/05/2024. MG MAMM SCREEN 3D DAVID CAD, 01/03/2023. MG MAMM SCREEN 3D DAVID CAD, 09/27/2021. MG MAMM DAVID SCRN W CAD DIG, 04/21/2013. INDICATIONS: Screening Calculator Name NCI Breast Cancer Risk Assessment Tool 5 Year Breast Cancer Risk 1.00% Lifetime Breast Cancer Risk 1.90% Personal Breast Cancer No Personal Ovarian Cancer No Treatments None Family Cancers Aunt-maternal with breast cancer at age 60. LOCATION: [facility] BREAST COMPOSITION: There are scattered areas of fibroglandular density. FINDINGS: DIAGNOSTIC CATEGORY 1--NEGATIVE. RIGHT BREAST: No significant suspicious finding. LEFT BREAST: No significant suspicious finding. RECOMMENDATIONS: ROUTINE MAMMOGRAM AND CLINICAL EVALUATION IN 12 MONTHS. PLEASE NOTE: A NORMAL MAMMOGRAM DOES NOT EXCLUDE THE POSSIBILITY OF BREAST CANCER. A CLINICALLY SUSPICIOUS PALPABLE LUMP SHOULD BE BIOPSIED. Dictated by: Jaime Lazaro DO on 01/05/2025 at 14:12 Approved by: Jaime Lazaro DO on 01/05/2025 at 14:14 Dictated By: Jaime Lazaro M.D. Signed By: 01/05/25 1415 DD/ 1414 TD/TT: Transverse Abdominal Muscle Nurse: [facility] Radiology Study observation (narrative) [facility] MM TOMOSYNTHESIS SCREENING B IOrdered By: Radiologist Radiology on 01-05-[address] [facility] Work Phone: ALL THYROID STIM HORMONEon 0 12-24-2024 TSH Qn 2.172 m[IU]/L [facility] ALL THYROID STIM HORMONEon 0 10-11-2024 Interpretation and review of laboratory results Abnormal [facility] TSH Qn 4.868 m[IU]/L High [facility] ALL THYROXINE (T4) FREEon Free T4 [Mass/Vol] 1 ng/dL 0.76 - 1. 46 ng/dL [facility] No Panel Informationon 10-[address] [facility] MLR HEMOGLOBIN A1Con 024 Glucose [Mass/Vol] 128 mg/dL [facility] HbA1c (Bld) [Mass fraction] 6.1 % 4.5 - 6.2 % [facility] Comment on above: ADA RECOMMENDED LIMI T 4.0 - 6.0 ADA THERAPEUTIC TARGET < 7.0 ACTION SUGGESTED > 7.[facility] (CLEAN/CATCH) MICROSC OPIC IF INDICATEon 08-18-2024 BILIRUBIN URINE Negative NEGATIVE [facility] BLOOD URINE Negative NEGATIVE [facility] Clarity (U) CLEAR CLEAR [facility] Color (U) LT. YELLOW YELLOW [facility] GLUCOSE URINE UA Negative NEGATIVE mg/dL [facility] Ketones Ql (U) Negative NEGATIVE mg/dL [facility] Leukocyte esterase Test strip Ql (U) Negative NEGATIVE [facility] NITRITE URINE Negative NEGATIVE [facility] pH (U) 7.5 [pH] 5.0 - 9.[address] [facility] PROTEIN URINE Negative NEG/TRACE mg/dL [facility] SPECIFIC GRAVITY URINE 1.015 1.005 - 1.[address] [facility] URINE MICROSCOPIC INDICATED NO [facility] UROBILINOGEN URINE 0.2 EU/dL 0.2 - 1.0 EU/dL [facility] IGP,APTIMA HPV,AGE GDLNon AGE GDLN ACOG TESTING Note . [facility] Comment on above: TESTS RESULT FLAG UN ITS REF RANGE LAB Clinician Provided Cytology Information Source.............Cervix;Endocervix No. of containers..01 ThinPrep Vial Age Algo ACOG Karla... Note 01 <21 or >65 or no age provided FLAG LEGEND: L-Low Normal,H-High Normal,LL-Alert Low,HH-Alert High <-Panic Low,>-Panic High,A-Abnormal,AA-Critical Abnormal Performed at: 01 =[address] [address] Prerna Arzate MD, PAP IG (IMAGE GUIDED) Note . [facility] Comment on above: TESTS RESULT FLAG UN ITS REF RANGE LAB DIAGNOSIS: 02 NEGATIVE FOR INTRAEPITHELIAL LESION OR MALIGNANCY. Specimen adequacy: 02 Satisfactory for evaluation. Endocervical and/or squamous metaplastic cells (endocervical component) are present. Performed by: Radha Gómez, Head Of English ([facility]) . 02 Note: Note 03 The Pap [...] High,A-Abnormal,AA-Critical Abnormal Performed at: 02 [facility] [address] [place] [address] Martin Machado MD, [address] [address] Prerna Arzate MD, Performed at: =G - [facility] [address] [id number] Gun Striper: Prerna Arzate MD, Phone: [phone] Performed at: [facility] [address] [place], [place] [id number] Gun Striper: Martin Machado MD, Phone: [phone] BROOM-ALONE CERVIX ENDOCERVIX [facility] VAGINITIS (HTRX)on 4 ATOPOBIUM VAGINAE 0 [facility] ATOPOBIUM VAGINAE Not detected [facility] BVAB 2,3 (BACTERIAL VAGINOSIS ASSOCIATED BACTERIA 2, 3); MOBILUNCUS SPP [address] [facility] BVAB 2,3 (BACTERIAL VAGINOSIS ASSOCIATED BACTERIA 2, 3); MOBILUNCUS SPP Not detected [facility] Healthcare JANAY ALBICANS, PARAPSILOSIS, TROPICALIS 0 [facility] [...] Healthcare HERPES SIMPLEX VIRUS 2 Not detected [facility] MEGASPHAERA (TYPES 1, 2) 0 [facility] MEGASPHAERA (TYPES 1, 2) Not detected [facility] NEISSERIA GONORRHOEAE 0 [facility] NEISSERIA GONORRHOEAE Not detected [facility] TRICHOMONAS VAGINALIS 0 [facility] TRICHOMONAS VAGINALIS Not detected [facility] XR shoulder RT min 2V*on XR shoulder RT min 2V* [facility] [address] [place] [address] XRay Report Signed Patient: Heidy Ponce MR#: [id number] : 1945 Acct:[id number] Age/Sex: 78 / F ADM Date: 04/29/24 Loc: [facility] Room: Type: REG CLI Attending Dr: Braxton Escalante DO Copies [...] Ra Acosta M.D.04/29/2024 3:49 PM Dictation Location: [place] [address] Transcribed By: [facility] 04/29/24 1549 Dictated By: Ra Acosta DO 04/29/24 1548 Signed By: 04/29/24 1549 Normal [facility] XR shoulder LT min 2V*on XR shoulder LT min 2V* [facility] [place] [address] [place] [id number] XRay Report Signed Patient: Heidy Ponce MR#: [id number] 2 : 1945 Acct:[id number] Age/Sex: 78 / F ADM Date: 12/11/23 Loc: [facility] [place] Room: Type: REG CLI Attending Dr: Braxton Escalante DO Copies [...] Alvaro Carvajal M.D.12/11/2023 12:01 PM Dictation Location: [place] [address] Transcribed By: [facility] 12/11/23 1201 Dictated By: Alvaro Carvajal II, MD 12/11/23 1159 Signed By: 12/11/23 1201 Normal [facility] MG MAMM SCREEN 3D DAVID CADon 01-03-2023 MG MAMM SCREEN 3D DAVID CAD Patient: HEIDY PONCE Exam Date: 01/03/2023 : 1945 Gender:F Ordering : [facility] Admission #: [id number] Family : Order #: [id number] CLICK HERE TO VIEW EXAM RADIOLOGY REPORT [...] breast cancer at age 62. LOCATION: [facility] BREAST COMPOSITION: Scattered areas fibroglandular density. [...] Rosenberg MD on 01/06/2023 at 09:57 Normal FREE T3on 12-16-2022 FREE T3 2.70 pg/mlL Normal 2.18-3.98 Comment on above: Performed By: #### T SH, FT3 #### [facility] [address] [place] [address] Dr. Glenny Sneed FREE T4on 12-16-2022 Free T4 [Mass/Vol] 0.92 ng/dL Normal 0.76-1.46 [facility] Comment on above: Performed By: #### F T4 #### [facility] [address] [place] [address] Dr. Glenny Sneed TSHon 12-16-2022 TSH 3.444 uIU/mL Normal 0.358-3.[address] [facility] Comment on above: Performed By: #### T SH, FT3 #### [facility] [address] [place] [address] Dr. Glenny Sneed CBC AUTO DIFFon 11-07-2022 BASO # 0.1 103/ul Normal 0.0-0.1 Comment on above: Performed By: #### T SH, FT3 #### [facility] [address] [place] [address] Dr. Glenny Sneed Basophils/100 WBC (Bld) 1.2 % Normal 0.2-2.0 Comment on above: Performed By: #### T SH, FT3 #### [facility] [address] [place] [address] Dr. Glenny Sneed EO # 0.2 103/ul Normal 0.0-0.7 Comment on above: Performed By: #### T SH, FT3 #### [facility] [address] [place] [address] Dr. Glenny Sneed Eosinophils/100 WBC (Bld) 2.8 % Normal 0.9-7.0 Comment on above: Performed By: #### T ZENAIDA, FT3 #### [facility] [address] [place] [address] Dr. Glenny Sneed Erythrocyte distribution width (RBC) [Ratio] 13.5 % Normal 11.0-15.0 Comment on above: Performed By: #### T ZENAIDA, FT3 #### [facility] [address] [place] [address] Dr. Glenny Sneed Hematocrit (Bld) [Volume fraction] 40.3 % Normal 36.0-48.[address] [facility] Comment on above: Performed By: #### T ZENAIDA, FT3 #### [facility] [address] [place] [address] Dr. Glenny Sneed Hemoglobin (Bld) [Mass/Vol] 12.9 g/dL Normal 12.0-16.[address] [facility] Comment on above: Performed By: #### T ZENAIDA, FT3 #### [facility] [address] [place] [address] Dr. Glenny Sneed IG # 0.01 10e3/ul Normal 0.00-0.[address] [facility] Comment on above: Performed By: #### Sherwin ESTEVEZ, FT3 #### [facility] [address] [place] [address] Dr. Glenny Sneed IG % 0.2 % Normal 0.0-0.[address] [facility] Comment on above: Performed By: #### T ZENAIDA, FT3 #### [facility] [address] [place] [address] Dr. Glenny Sneed LYMPH # 2.5 103/ul Normal 1.2-3.[address] [facility] Comment on above: Performed By: #### T ZENAIDA, FT3 #### [facility] [address] [place] [address] Dr. Glenny Sneed Lymphocytes/100 WBC (Bld) 38.2 % Normal 20.5-60.[address] [facility] Comment on above: Performed By: #### T ZENAIDA, FT3 #### [facility] [address] [place] [address] Dr. Glenny Sneed MANUAL DIFF REQ NO Normal [facility] Comment on above: Performed By: #### T , FT3 #### [facility] [address] [place] [address] Dr. Glenny Sneed MCH (RBC) [Entitic mass] 27.2 pg Normal 26.7-34.[address] [facility] Comment on above: Performed By: #### T , FT3 #### [facility] [address] [place] [address] Dr. Glenny Sneed MCHC (RBC) [Mass/Vol] 32.0 g/dL Normal 29.9-35.[address] [facility] Comment on above: Performed By: #### T , FT3 #### [facility] [address] [place] [address] Dr. Glenny Sneed MCV (RBC) [Entitic vol] 84.8 fL Normal 81.0-99.0 Comment on above: Performed By: #### T , FT3 #### [facility] [address] [place] [address] Dr. Glenny Sneed MONO # 0.6 103/ul Normal 0.3-0.8 Comment on above: Performed By: #### T , FT3 #### [facility] [address] [place] [address] Dr. Glenny Sneed Monocytes/100 WBC (Bld) 8.5 % Normal 1.7-12.[address] [facility] Comment on above: Performed By: #### T , FT3 #### [facility] [address] [place] [address] Dr. Glenny Sneed NEUT # 3.2 103/ul Normal 1.4-6.[address] [facility] Comment on above: Performed By: #### T , FT3 #### [facility] [address] [place] [address] Dr. Glenny Sneed Neutrophils/100 WBC (Bld) 49.1 % Normal 43.0-75.[address] [facility] Comment on above: Performed By: #### T SH, FT3 #### [facility] [address] [place] [address] Dr. Glenny Sneed Platelet mean volume (Bld) [Entitic vol] 10.2 fL Normal 9.5-13.5 Comment on above: Performed By: #### T SH, FT3 #### [facility] [address] [place] [address] Dr. Glenny Sneed PLT 350 103/ul Normal 150-450 Comment on above: Performed By: #### T SH, FT3 #### [facility] [address] [place] [address] Dr. Glenny Sneed RBC 4.75 106/ul Normal 4.20-5.40 Comment on above: Performed By: #### T SH, FT3 #### [facility] [address] [place] [address] Dr. Glenny Sneed WBC 6.5 103/ul Normal 4.0-11.0 Comment on above: Performed By: #### T SH, FT3 #### [facility] [address] [place] [address] Dr. Glenny Sneed FREE T4on 11-07-2022 Free T4 [Mass/Vol] 1.15 ng/dL Normal 0.76-1.46 [facility] Comment on above: Performed By: #### F T4, VITAD #### [facility] [address] [place] [address] Dr. Glenny Sneed GLYCOHEMOGLOBIN A1Con 2022 ADA RECOMMENDATION SEE BELOW Normal [facility] Comment on above: Result Comment: ADA RECOMMENDED LIMIT 4.0 - 6.0 ADA THERAPEUTIC TARGET < 7.0 ACTION SUGGESTED > 7.0 Performed By: #### A 1C #### [facility] [address] [place] [address] Dr. Glenny Sneed Glucose [Mass/Vol] 120 mg/dL Normal [facility] Comment on above: Performed By: #### A 1C #### [facility] [address] [place] [address] Dr. Glenny Sneed HbA1c (Bld) [Mass fraction] 5.8 % Normal 4.5-6.2 Comment on above: Performed By: #### A 1C #### [facility] [address] [place] [address] [address] Glenny Sneed LIPID PROFILEon 11-07-2022 CHOL-HDL RATIO NORM SEE BELOW Normal [facility] Comment on above: Result Comment: 3.3 - 4.4 LOW RISK 4.4 - 7.1 AVERAGE RISK 7.1 - 11.0 MODERATE RISK >11.0 HIGH RISK Performed By: #### L IPID, CMP, TSH #### [facility] [address] [place] [address] [address] Glenny Sneed Cholesterol [Mass/Vol] 185 mg/dL Normal <=200 Comment on above: Performed By: #### L IPID, CMP, TSH #### [facility] [address] [place] [address] [address] Glenny Sneed Cholesterol in HDL [Mass/Vol] 63 mg/dL Critically high 40-60 Comment on above: Performed By: #### L IPID, CMP, TSH #### [facility] [address] [place] [address] [address] Glenny Sneed Cholesterol in LDL [Mass/Vol] 87.6 mg/dL Normal Comment on above: Performed By: #### L IPID, CMP, TSH #### [facility] [address] [place] [address] [address] Glenny Sneed Cholesterol.total/Ch olesterol in HDL [Mass ratio] 2.9 {ratio} Normal Comment on above: Performed By: #### L IPID, CMP, TSH #### [facility] [address] [place] [address] [address] Glenny Sneed HDL NORMAL > or = 60 mg/dl - LO W CARDIOVASCULAR RISK <40 mg/dl - HIGH CARDIOVASCULAR RISK Normal Comment on above: Performed By: #### L IPID, CMP, TSH #### [facility] [address] [place] [address] Dr. Glenny Sneed LDL CALC NORMAL SEE BELOW Normal [facility] Comment on above: Result Comment: <100 mg/dl OPTIMAL 100 - 129 mg/dl NEAR OR ABOVE OPTIMAL 130 - 159 mg/dl BORDERLINE HIGH 160 - 189 mg/dl HIGH >190 mg/dl VERY HIGH Performed By: #### L IPID, CMP, TSH #### [facility] [address] [place] [address] [address] Glenny Sneed Triglyceride [Mass/Vol] 172 mg/dL Critically high <=150 Comment on above: Performed By: #### L IPID, CMP, TSH #### [facility] [address] [place] [address] [address] Glenny Sneed VLDL CALC 34.4 mg/dL Normal Comment on above: Performed By: #### L IPID, CMP, TSH #### [facility] [address] [place] [address] Dr. Glenny Sneed PROF 14(COMP METB)on 023 Albumin [Mass/Vol] 4.1 g/dL Normal 3.4-5.0 [facility] Comment on above: Performed By: #### L IPID, CMP, TSH #### [facility] [address] [place] [address] [address] Glenny Sneed Albumin/Globulin [Mass ratio] 1.0 {ratio} Normal Comment on above: Performed By: #### L IPID, CMP, TSH #### [facility] [address] [place] [address] [address] Glenny Sneed ALP [Catalytic activity/Vol] 77 U/L Normal 46-[address] [facility] Comment on above: Performed By: #### L IPID, CMP, TSH #### [facility] [address] [place] [address] [address] Glenny Sneed ALT [Catalytic activity/Vol] 33 U/L Normal 14-59 Comment on above: Performed By: #### L IPID, CMP, TSH #### [facility] [address] [place] [address] [address] Glenny Sneed Anion gap [Moles/Vol] 13.1 mmol/L Normal Comment on above: Performed By: #### L IPID, CMP, TSH #### [facility] [address] [place] [address] [address] Glenny Sneed AST [Catalytic activity/Vol] 22 U/L Normal 15-37 Comment on above: Performed By: #### L IPID, CMP, TSH #### [facility] [address] [place] [address] [address] Glenny Sneed Bilirubin [Mass/Vol] 0.7 mg/dL Normal 0.2-1.0 Comment on above: Performed By: #### L IPID, CMP, TSH #### [facility] [address] [place] [address] Dr. Glenny Sneed Calcium [Mass/Vol] 10.0 mg/dL Normal 8.5-10.1 [facility] Comment on above: Performed By: #### L IPID, CMP, TSH #### [facility] [address] [place] [address] Dr. Glenny Sneed Chloride [Moles/Vol] 102 mmol/L Normal 98-[address] [facility] Comment on above: Performed By: #### L IPID, CMP, TSH #### [facility] [address] [place] [address] Dr. Glenny Sneed CO2 [Moles/Vol] 29.9 mmol/L Normal 21.0-32.0 [facility] Comment on above: Performed By: #### L IPID, CMP, TSH #### [facility] [address] [place] [address] Dr. Glenny Sneed Creatinine [Mass/Vol] 0.66 mg/dL Normal 0.55-1.[address] [facility] Comment on above: Performed By: #### L IPID, CMP, TSH #### [facility] [address] [place] [address] Dr. Glenny Sneed EGFR-AF [place]THER[place] >60 Normal >=60 [facility] Comment on above: Performed By: #### L IPID, CMP, TSH #### [facility] [address] [place] [address] Dr. Glenny Sneed EGFR-NON AF [place] >60 Normal >=60 Comment on above: Performed By: #### L IPIDMARYANN, TSH #### [facility] [address] [place] [address] [address] Glenny Sneed Globulin (S) [Mass/Vol] 4.0 g/dL Normal Comment on above: Performed By: #### L IPID CMP, TSH #### [facility] [address] [place] [address] [address] Glenny Sneed Glucose [Mass/Vol] 106 mg/dL Normal 74-106 [facility] Comment on above: Performed By: #### L IPID CMP, TSH #### [facility] [address] [place] [address] Dr. Glenny Sneed Potassium [Moles/Vol] 4.0 mmol/L Normal 3.5-5.[address] [facility] Comment on above: Performed By: #### L IPID CMP, TSH #### [facility] [address] [place] [address] Dr. Glenny Sneed Protein [Mass/Vol] 8.1 g/dL Normal 6.4-8.2 [facility] Comment on above: Performed By: #### L IPMIKKI CMP, TSH #### [facility] [address] [place] [address] Dr. Glenny Sneed Sodium [Moles/Vol] 141 mmol/L Normal 136-145 [facility] Comment on above: Performed By: #### L IPID CMP, TSH #### [facility] [address] [place] [address] Dr. Glenny Sneed Urea nitrogen [Mass/Vol] 9.0 mg/dL Normal 7.0-18.0 Comment on above: Performed By: #### L IPID CMP, TSH #### [facility] [address] [place] [address] [address] Glenny Sneed Urea nitrogen/Creatinine [Mass ratio] 13.6 mg/mg Normal Comment on above: Performed By: #### L IPID CMP, TSH #### [facility] [address] [place] [address] [address] Glenny Sneed TSHon 11-07-2022 TSH 2.008 uIU/mL Normal 0.358-3.[address] [facility] Comment on above: Performed By: #### L IPID, CMP, TSH #### [facility] [address] [place] [address] Dr. Glenny Sneed UA RANDOM W/MICROSCOPICon BACTERIA NONE SEEN Normal NONE SEEN Comment on above: Performed By: #### U AMIC #### [facility] [address] [place] [address] Dr. Glenny Sneed Bilirubin Ql (U) Negative Normal NEGATIVE [facility] Comment on above: Performed By: #### U AMIC #### [facility] [address] [place] [address] Dr. Glenny Sneed CAST NONE SEEN Normal NONE SEEN Comment on above: Performed By: #### U AMIC #### [facility] [address] [place] [address] Dr. Glenny Sneed Clarity (U) CLEAR Normal CLEAR Comment on above: Performed By: #### U AMIC #### [facility] [address] [place] [address] Dr. Glenny Sneed Color (U) LT. YELLOW Normal YELLOW [facility] Comment on above: Performed By: #### U AMIC #### [facility] [address] [place] [address] [address] Glenny Sneed Crystals LM Nom (Urine sed) NONE SEEN Normal NONE SEEN Comment on above: Performed By: #### U AMIC #### [facility] [address] [place] [address] Dr. Glenny Sneed Epithelial cells LM Ql (Urine sed) NONE SEEN Normal NONE SEEN /RARE [facility] Comment on above: Performed By: #### U AMIC #### [facility] [address] [place] [address] Dr. Glenny Sneed Glucose Ql (U) Negative Normal NEGATIVE [facility] Comment on above: Performed By: #### U AMIC #### [facility] [address] [place] [address] [address] Glenny Sneed Hemoglobin Ql (U) TRACE-INTACT Abnormal NEGATIVE [facility] Comment on above: Performed By: #### U AMIC #### [facility] [address] [place] [address] [address] Glenny Sneed Ketones Ql (U) Negative Normal NEGATIVE [facility] Comment on above: Performed By: #### U AMIC #### [facility] [address] [place] [address] [address] Glenny Sneed LEUKOCYTES Negative Normal NEGATIVE Comment on above: Performed By: #### U AMIC #### [facility] [address] [place] [address] [address] Glenny Sneed MUCOUS NONE SEEN Normal NONE SEEN Comment on above: Performed By: #### U AMIC #### [facility] [address] [address] [address] Glenny Sneed Nitrite Ql (U) Negative Normal NEGATIVE [facility] Comment on above: Performed By: #### U AMIC #### [facility] [address] [place] [address] [address] Glenny Sneed pH (U) 6.5 [pH] Normal 5-9 Comment on above: Performed By: #### U AMIC #### [facility] [address] [place] [address] [address] Glenny Sneed RBC 0-2 Normal 0-2 Comment on above: Performed By: #### U AMIC #### [facility] [address] [address] [address] Glenny Sneed SPEC GRAVITY <=1.005 Abnormal 1.005-<=1.025 [facility] Comment on above: Performed By: #### U AMIC #### [facility] [address] [address] [address] Glenny Sneed UA PROTEIN Negative Normal NEGATIVE/ TRACE Comment on above: Performed By: #### U AMIC #### [facility] [address] [place] [address] Dr. Glenny Sneed Urobilinogen Qn (U) 0.2 {Justice'U}/dL Normal 0.2 - 1. 0 Comment on above: Performed By: #### U AMIC #### [facility] [address] [place] [address] Dr. Glenny Sneed WBC NONE SEEN Normal NONE SEEN [facility] Comment on above: Performed By: #### U AMIC #### [facility] [address] [place] [address] Dr. Glenny Sneed VITAMIN D 25 OHon 11-07-2022 VIT D 25-OH 35.2 ng/mL Normal Comment on above: Performed By: #### F T4, VITAD #### [facility] [address] [place] [address] Dr. Glenny Sneed VIT D RANGES SEE BELOW Normal Comment on above: Result Comment: <20 ng/mL Vit D deficient 20 - <30 ng/mL Vit D insufficient 30 - 100 ng/mL Vit D sufficient >100 ng/mL Potential Toxicity Performed By: #### F T4, VITAD #### [facility] [address] [place] [address] Dr. Glenny Sneed HEPATITIS C ANTIBODYon 05-10 Hep C Virus Ab <0.1 Normal 0.0-0.9 [facility] Comment on above: Result Comment: Nega [...] Hepatitis C Virus (HCV) RNA, Diagnosis, CORTES (421154) and Hepatitis C Virus (HCV) Antibody with reflex to Quantitative Real-time PCR ([id number]). Performed By: #### T SH, FT3 #### [facility] [address] [place] [address] Dr. Glenny Sneed LIPID PROFILEon 05-08-2022 CHOL-HDL RATIO NORM SEE BELOW Normal [facility] Comment on above: Result Comment: 3.3 - 4.4 LOW RISK 4.4 - 7.1 AVERAGE RISK 7.1 - 11.0 MODERATE RISK >11.0 HIGH RISK Performed By: #### T SH, FT3 #### [facility] [address] [address] [address] Glenny Sneed Cholesterol [Mass/Vol] 173 mg/dL Normal <=200 Comment on above: Performed By: #### T SH, FT3 #### [facility] [address] [address] [address] Glenny Sneed Cholesterol in HDL [Mass/Vol] 67 mg/dL Critically high 40-60 Comment on above: Performed By: #### T SH, FT3 #### [facility] [address] [address] [address] Glenny Sneed Cholesterol in LDL [Mass/Vol] 77.8 mg/dL Normal Comment on above: Performed By: #### T SH, FT3 #### [facility] [address] [address] [address] Glenny Sneed Cholesterol.total/Ch olesterol in HDL [Mass ratio] 2.6 {ratio} Normal Comment on above: Performed By: #### T SH, FT3 #### [facility] [address] [place] [address] Dr. Glenny Sneed HDL NORMAL > or = 60 mg/dl - LO W CARDIOVASCULAR RISK <40 mg/dl - HIGH CARDIOVASCULAR RISK Normal Comment on above: Performed By: #### T SH, FT3 #### [facility] [address] [address] [address] Glenny Sneed LDL CALC NORMAL SEE BELOW Normal [facility] Comment on above: Result Comment: <100 mg/dl OPTIMAL 100 - 129 mg/dl NEAR OR ABOVE OPTIMAL 130 - 159 mg/dl BORDERLINE HIGH 160 - 189 mg/dl HIGH >190 mg/dl VERY HIGH Performed By: #### T SH, FT3 #### [facility] [address] [address] [address] Glenny Sneed Triglyceride [Mass/Vol] 141 mg/dL Normal <=150 Comment on above: Performed By: #### T SH, FT3 #### [facility] [address] [place] [address] Dr. Glenny Sneed VLDL CALC 28.2 mg/dL Normal Comment on above: Performed By: #### T ZENAIDA, FT3 #### [facility] [address] [place] [address] Dr. Glenny Sneed LIVER PROFILEon 05-08-2022 Albumin [Mass/Vol] 4.0 g/dL Normal 3.4-5.0 [facility] Comment on above: Performed By: #### T ZENAIDA, FT3 #### [facility] [address] [place] [address] Dr. Glenny Sneed Albumin/Globulin [Mass ratio] 1.0 {ratio} Normal Comment on above: Performed By: #### T ZENAIDA, FT3 #### [facility] [address] [place] [address] Dr. Glenny Sneed ALP [Catalytic activity/Vol] 77 U/L Normal 46-116 Comment on above: Performed By: #### T ZENAIDA, FT3 #### [facility] [address] [place] [address] Dr. Glenny Sneed ALT [Catalytic activity/Vol] 39 U/L Normal 14-59 Comment on above: Performed By: #### T ZENAIDA, FT3 #### [facility] [address] [place] [address] Dr. Glenny Sneed AST [Catalytic activity/Vol] 20 U/L Normal 15-37 Comment on above: Performed By: #### T ZENAIDA, FT3 #### [facility] [address] [place] [address] Dr. Glenny Sneed BILI, CONJUGATED 0.1 mg/dL Normal 0.0-0.2 [facility] Comment on above: Performed By: #### T ZENAIDA, FT3 #### [facility] [address] [place] [address] Dr. Glenny Sneed Bilirubin [Mass/Vol] 0.7 mg/dL Normal 0.2-1.0 Comment on above: Performed By: #### T ZENAIDA, FT3 #### [facility] [address] [place] [address] Dr. Glenny Sneed Globulin (S) [Mass/Vol] 4.0 g/dL Normal Comment on above: Performed By: #### T ZENAIDA, FT3 #### [facility] [address] [place] [address] Dr. Glenny Sneed Protein [Mass/Vol] 8.0 g/dL Normal 6.4-8.2 [facility] Comment on above: Performed By: #### T ZENAIDA, FT3 #### [facility] [address] [place] [address] Dr. Glenny Sneed LIVER PROFILEon 02-13-2022 Albumin [Mass/Vol] 3.9 g/dL Normal 3.4-5.0 [facility] Comment on above: Performed By: #### T ZENAIDA, FT3 #### [facility] [address] [place] [address] Dr. Glenny Sneed Albumin/Globulin [Mass ratio] 1.0 {ratio} Normal Comment on above: Performed By: #### T ZENAIDA, FT3 #### [facility] [address] [place] [address] Dr. Glenny Sneed ALP [Catalytic activity/Vol] 112 U/L Normal 46-[address] [facility] Comment on above: Performed By: #### T ZENAIDA, FT3 #### [facility] [address] [place] [address] Dr. Glenny Sneed ALT [Catalytic activity/Vol] 50 U/L Normal 14-[address] [facility] Comment on above: Performed By: #### T ZENAIDA, FT3 #### [facility] [address] [place] [address] Dr. Glenny Sneed AST [Catalytic activity/Vol] 25 U/L Normal 15-37 Comment on above: Performed By: #### T ZENAIDA, FT3 #### [facility] [address] [place] [address] Dr. Glenny Sneed BILI, CONJUGATED 0.2 mg/dL Normal 0.0-0.2 [facility] Comment on above: Performed By: #### T SH, FT3 #### [facility] [address] [place] [address] Dr. Glenny Sneed Bilirubin [Mass/Vol] 0.7 mg/dL Normal 0.2-1.0 Comment on above: Performed By: #### T SH, FT3 #### [facility] [address] [place] [address] Dr. Glenny Sneed Globulin (S) [Mass/Vol] 4.0 g/dL Normal Comment on above: Performed By: #### T SH, FT3 #### [facility] [address] [place] [address] Dr. Glenny Sneed Protein [Mass/Vol] 7.9 g/dL Normal 6.4-8.2 [facility] Comment on above: Performed By: #### T SH, FT3 #### [facility] [address] [place] [address] Dr. Glenny COLEOTomagui 01-23-2022 AST [Catalytic activity/Vol] 41 U/L Critically high 15-37 Comment on above: Performed By: #### T SH, FT3 #### [facility] [address] [place] [address] Dr. Glenny Sneed SGPTon 01-23-2022 ALT [Catalytic activity/Vol] 85 U/L Critically high 14-59 Comment on above: Performed By: #### T SH, FT3 #### [facility] [address] [place] [address] Dr. Glenny Sneed LIPID PROFILEon 01-07-2022 CHOL-HDL RATIO NORM SEE BELOW Normal [facility] Comment on above: Result Comment: 3.3 - 4.4 LOW RISK 4.4 - 7.1 AVERAGE RISK 7.1 - 11.0 MODERATE RISK >11.0 HIGH RISK Performed By: #### T SH, FT3 #### [facility] [address] [address] [address] Glenny Sneed Cholesterol [Mass/Vol] 144 mg/dL Normal <=[address] [facility] Comment on above: Performed By: #### T SH, FT3 #### [facility] [address] [address] [address] Glenny Sneed Cholesterol in HDL [Mass/Vol] 63 mg/dL Critically high 40-[address] [facility] Comment on above: Performed By: #### T SH, FT3 #### [facility] [address] [address] [address] Glenny Sneed Cholesterol in LDL [Mass/Vol] 56.2 mg/dL Normal Comment on above: Performed By: #### T SH, FT3 #### [facility] [address] [place] [address] Dr. Glenny Sneed Cholesterol.total/Ch olesterol in HDL [Mass ratio] 2.3 {ratio} Normal Comment on above: Performed By: #### T SH, FT3 #### [facility] [address] [place] [address] Dr. Glenny Sneed HDL NORMAL > or = 60 mg/dl - LO W CARDIOVASCULAR RISK <40 mg/dl - HIGH CARDIOVASCULAR RISK Normal Comment on above: Performed By: #### T SH, FT3 #### [facility] [address] [place] [address] Dr. Glenny Sneed LDL CALC NORMAL SEE BELOW Normal [facility] Comment on above: Result Comment: <100 mg/dl OPTIMAL 100 - 129 mg/dl NEAR OR ABOVE OPTIMAL 130 - 159 mg/dl BORDERLINE HIGH 160 - 189 mg/dl HIGH >190 mg/dl VERY HIGH Performed By: #### T SH, FT3 #### [facility] [address] [place] [address] Dr. Glenny Sneed Triglyceride [Mass/Vol] 124 mg/dL Normal <=[address] [facility] Comment on above: Performed By: #### T SH, FT3 #### [facility] [address] [address] [address] Glenny Sneed VLDL CALC 24.8 mg/dL Normal [facility] Comment on above: Performed By: #### T SH, FT3 #### [facility] [address] [address] [address] Glenny COLEOTon 01-07-2022 AST [Catalytic activity/Vol] 53 U/L Critically high 15-37 Comment on above: Performed By: #### T SH, FT3 #### [facility] [id number] Glenny Sneed SGPTon 01-07-2022 ALT [Catalytic activity/Vol] 108 U/L Critically high 14-59 Comment on above: Performed By: #### T SH, FT3 #### [facility] [address] [address] [address] Glenny Sneed Vital Signs Date Time Vital Sign Value Performing Clinician Faci lity 04-13-2025 10:40-0400 Body mass index (BMI) [Ratio] 30.08 kg/m2 Pamela Moore SALT MANAGER Work Phone: [facility] 04-13-2025 10:40-0400 Body temperature 97.5 [degF] Pamela Moore SALT MANAGER Work Phone: [facility] 04-13-2025 10:40-0400 Body weight 72.21 kg Pamela Moore SALT MANAGER Work Phone: [facility] 04-13-2025 10:40-0400 Diastolic blood pressure 68 mm[Hg] Pamela Moore SALT MANAGER Work Phone: [facility] 04-13-2025 10:40-0400 Heart rate 62 /min Pamela Oscar SALT MANAGER Work Phone: [facility] 04-13-2025 10:40-0400 Respiratory rate 20 /min Pamela Moore SALT MANAGER Work Phone: [facility] 04-13-2025 10:40-0400 SaO2% (BldA) [Mass fraction] 98 % Pamela Moore SALT MANAGER Work Phone: [facility] 04-13-2025 10:40-0400 Systolic blood pressure 172 mm[Hg] Pamela Aichholz SALT MANAGER Work Phone: [facility] 01-12-2025 09:50-0400 Body mass index (BMI) [Ratio] 29.85 kg/m2 Pamela Aichholz SALT MANAGER Work Phone: [facility] 01-12-2025 09:50-0400 Body temperature 98.29 [degF] Pamela Aichholz SALT MANAGER Work Phone: [facility] 01-12-2025 09:50-0400 Body weight 71.67 kg Pamela Aichholz SALT MANAGER Work Phone: [facility] 01-12-2025 09:50-0400 Diastolic blood pressure 70 mm[Hg] Pamela Aichholz SALT MANAGER Work Phone: [facility] 01-12-2025 09:50-0400 Heart rate 62 /min Pamela Aichholz SALT MANAGER Work Phone: [facility] 01-12-2025 09:50-0400 Respiratory rate 18 /min Pamela Aichholz SALT MANAGER Work Phone: [facility] 01-12-2025 09:50-0400 SaO2% (BldA) [Mass fraction] 98 % Pamela Aichholz SALT MANAGER Work Phone: [facility] 01-12-2025 09:50-0400 Systolic blood pressure 160 mm[Hg] Pamela Aichholz SALT MANAGER Work Phone: [facility] 10-13-2024 10:14-0500 Diastolic blood pressure 60 mm[Hg] Pamela Aichholz SALT MANAGER Work Phone: [facility] 10-13-2024 10:14-0500 Systolic blood pressure 162 mm[Hg] Pamela Aichholz SALT MANAGER Work Phone: [facility] 10-13-2024 09:42-0500 Body height 154.9 cm Pamela Aichholz SALT MANAGER Work Phone: [facility] 10-13-2024 09:42-0500 Body mass index (BMI) [Ratio] 29.82 kg/m2 Pamela Dougholz SALT MANAGER Work Phone: [facility] 10-13-2024 09:42-0500 Body weight 71.58 kg Pamela Aichholz SALT MANAGER Work Phone: [facility] 10-13-2024 09:42-0500 Heart rate 66 /min Pamela Aichholz SALT MANAGER Work Phone: [facility] 10-13-2024 09:42-0500 Respiratory rate 18 /min Pamela Aichholz SALT MANAGER Work Phone: [facility] 10-13-2024 09:42-0500 SaO2% (BldA) [Mass fraction] 99 % Pamela Aichholz SALT MANAGER Work Phone: [facility] 08-18-2024 10:06-0500 Diastolic blood pressure 70 mm[Hg] Pamela Aichholz SALT MANAGER Work Phone: [facility] 08-18-2024 10:06-0500 Systolic blood pressure 154 mm[Hg] Pamela Aichholz SALT MANAGER Work Phone: [facility] 08-18-2024 09:48-0500 Body height 154.9 cm Pamela Aichholz SALT MANAGER Work Phone: [facility] 08-18-2024 09:48-0500 Body mass index (BMI) [Ratio] 30.08 kg/m2 Pamela Aichholz SALT MANAGER Work Phone: [facility] 08-18-2024 09:48-0500 Body temperature 97.81 [degF] Pamela Aichholz SALT MANAGER Work Phone: [facility] 08-18-2024 09:48-0500 Body weight 72.21 kg Pamela Aichholz SALT MANAGER Work Phone: [facility] 08-18-2024 09:48-0500 Heart rate 59 /min Pamela Aichholz SALT MANAGER Work Phone: [facility] 08-18-2024 09:48-0500 Respiratory rate 19 /min Paemla Aichholz SALT MANAGER Work Phone: [facility] 08-18-2024 09:48-0500 SaO2% (BldA) [Mass fraction] 99 % Pamela Aichholz SALT MANAGER Work Phone: [facility] 07-07-2024 10:27-0400 Body height 154.9 cm Pamela Aichholz SALT MANAGER Work Phone: [facility] 07-07-2024 10:27-0400 Body mass index (BMI) [Ratio] 29.97 kg/m2 Pamela Aichholz SALT MANAGER Work Phone: [facility] 07-07-2024 10:27-0400 Body temperature 98.49 [degF] Pamela Aichholz SALT MANAGER Work Phone: [facility] 07-07-2024 10:27-0400 Body weight 71.94 kg Pamela Aichholz SALT MANAGER Work Phone: [facility] 07-07-2024 10:27-0400 Diastolic blood pressure 62 mm[Hg] Pamela Aichholz SALT MANAGER Work Phone: [facility] 07-07-2024 10:27-0400 Heart rate 64 /min Pamela Aichholz SALT MANAGER Work Phone: [facility] 07-07-2024 10:27-0400 Respiratory rate 20 /min Pamela Aichholz SALT MANAGER Work Phone: [facility] 07-07-2024 10:27-0400 SaO2% (BldA) [Mass fraction] 98 % Pamela Aichholz SALT MANAGER Work Phone: [facility] 07-07-2024 10:27-0400 Systolic blood pressure 142 mm[Hg] Pamela Aichholz SALT MANAGER Work Phone: [facility] 06-10-2024 09:22-0400 Body mass index (BMI) [Ratio] 29.7 kg/m2 Pamela Dougholz SALT MANAGER Work Phone: [facility] 06-10-2024 09:22-0400 Body temperature 98.49 [degF] Pamela Dougholz SALT MANAGER Work Phone: [facility] 06-10-2024 09:22-0400 Body weight 71.31 kg Pamela Dougholz SALT MANAGER Work Phone: [facility] 06-10-2024 09:22-0400 Diastolic blood pressure 78 mm[Hg] Pamela Tavohholz SALT MANAGER Work Phone: [facility] 06-10-2024 09:22-0400 Heart rate 59 /min Pamela Dougholz SALT MANAGER Work Phone: [facility] 06-10-2024 09:22-0400 SaO2% (BldA) [Mass fraction] 99 % Pamela Dougholz SALT MANAGER Work Phone: [facility] 06-10-2024 09:22-0400 Systolic blood pressure 152 mm[Hg] Pamela Tavohholz SALT MANAGER Work Phone: [facility] 11-05-2023 09:44-0500 Body height 154.9 cm Pamela Tavohholz SALT MANAGER Work Phone: [facility] 11-05-2023 09:44-0500 Body mass index (BMI) [Ratio] 30 kg/m2 Pamela Tavohholz SALT MANAGER Work Phone: [facility] 11-05-2023 09:44-0500 Body temperature 97.5 [degF] Pamela Tavohholz SALT MANAGER Work Phone: [facility] 11-05-2023 09:44-0500 Body weight 72.03 kg Pamela Tavohholz SALT MANAGER Work Phone: [facility] 11-05-2023 09:44-0500 Diastolic blood pressure 68 mm[Hg] Pamela Aichholz SALT MANAGER Work Phone: [facility] 11-05-2023 09:44-0500 Heart rate 61 /min Pamela Langleyjulisa SALT MANAGER Work Phone: [facility] 11-05-2023 09:44-0500 Respiratory rate 18 /min Pamela Langleyjulisa SALT MANAGER Work Phone: [facility] 11-05-2023 09:44-0500 SaO2% (BldA) [Mass fraction] 98 % Pamela Camachosharda SALT MANAGER Work Phone: [facility] 11-05-2023 09:44-0500 Systolic blood pressure 138 mm[Hg] Pamela Camachosharda SALT MANAGER Work Phone: [facility] Healthcare Encounters Encounter Date Encounter Type Care Provider Facility Start: 04-21-2025 End: 04-21-2025 Orders Only Pamelamisa Vosukhi SALT MANAGER Work Phone: [facility] Comment on above: Gastroesophageal ref lux disease, unspecified whether esophagitis present (Primary Dx); Elevated liver function tests; Diverticulosis of large intestine without hemorrhage; Black stools Start: 04-13-2025 End: 04-13-2025 Bamboo flowsheet Pamela Oscar SALT MANAGER Work Phone: [facility] Start: 04-13-2025 End: 04-13-2025 Bamboo flowsheet Pamela Tavoevertonsharda SALT MANAGER Work Phone: [facility] Start: 04-13-2025 End: 04-13-2025 Patient encounter procedure Pamela Tavoevertonsharda SALT MANAGER Work Phone: [facility] Comment on above: Encounter for subseq uent annual wellness visit (AWV) in Medicare patient [...] Diverticulitis; LORI (generalized anxiety disorder) ; Onychomycosis Start: 04-13-2025 End: 04-13-2025 ambulatory PAMELA AICHHOLZ Not Available Start: 04-07-2025 End: 04-07-2025 Office outpatient visit 15 minutes [facility] OD Work Phone: [facility] Comment on above: Age-related nuclear cataract of both eyes (Primary Dx); Posterior vitreous detachment, bilateral; Infection of eyelash follicle of right eye Start: 04-07-2025 End: 04-07-2025 [facility] Start: 02-09-2025 End: 02-09-2025 Refill Pamela Aichholz SALT MANAGER Work Phone: [facility] Comment on above: Hypothyroidism (acqu ired) (CMS/HCC) Start: 01-12-2025 End: 01-12-2025 Bamboo flowsheet Pameal Aichholz SALT MANAGER Work Phone: [facility] Start: 01-12-2025 End: 01-12-2025 Bamboo flowsheet Pamela Aichholz SALT MANAGER Work Phone: [facility] Start: 01-12-2025 End: 01-12-2025 Office outpatient visit 15 minutes Pamela Tavohholz SALT MANAGER Work Phone: [facility] Comment on above: Primary hypertension (CMS/HCC) (Primary Dx); Hypothyroidism (acquired) (CMS/[facility]); Allergic rhinitis, unspecified seasonality, unspecified trigger Start: 01-12-2025 End: 01-12-2025 ambulatory PAMELA AICHHOLZ Not Available Start: 01-05-2025 End: 01-05-2025 Clinisync Result Encounter Pamela Dougholz SALT MANAGER Work Phone: [facility] Unsolicited Start: 01-05-2025 End: 01-05-2025 Clinisync Result Encounter Pamela Tavohholz SALT MANAGER Work Phone: [facility] Unsolicited Start: 01-03-2025 End: 01-03-2025 Refill Pamela Aichholz SALT MANAGER Work Phone: [facility] Comment on above: Age related osteopor osis, unspecified pathological fracture presence (CMS/HCC); Hyperlipidemia, unspecified (CMS/HCC) Start: 12-24-2024 End: 12-24-2024 Clinisync Result Encounter Pamela Oscar SALT MANAGER Work Phone: [facility] Unsolicited Start: 12-24-2024 End: 12-24-2024 Clinisync Result Encounter Pamela Oscar SALT MANAGER Work Phone: [facility] Unsolicited Start: 10-13-2024 End: 10-13-2024 Bamboo flowsheet Pamela Oscar SALT MANAGER Work Phone: [facility] Start: 10-13-2024 End: 10-13-2024 Bamboo flowsheet Pamela Oscar SALT MANAGER Work Phone: [facility] Start: 10-13-2024 End: 10-13-2024 Office outpatient visit 25 minutes Pamela Moore SALT MANAGER Work Phone: [facility] Comment on above: Primary hypertension (CMS/HCC) (Primary Dx); Class 1 obesity due to excess calories without serious comorbidity with body mass index (BMI) of 30.0 to 30.9 in adult; Hypothyroidism (acquired) ([facility]/HCC); LORI (generalized anxiety disorder) ([facility]/HCC) Start: 10-13-2024 End: 10-13-2024 ambulatory PAMELA OSCAR Not Available Start: 10-11-2024 End: 10-11-2024 Clinisync Result Encounter Pamela Oscar SALT MANAGER Work Phone: [facility] Unsolicited Start: 10-11-2024 End: 10-11-2024 Clinisync Result Encounter Pamela Oscar SALT MANAGER Work Phone: [facility] Unsolicited Start: 10-04-2024 End: 10-04-2024 Orders Only Pamela Moore SALT MANAGER Work Phone: [facility] Comment on above: Hypothyroidism (acqu ired) (CMS/HCC) (Primary Dx) Start: 08-30-2024 End: 08-30-2024 Clinisync Result Encounter Pamela Oscar SALT MANAGER Work Phone: [facility] External Department Unsolicited Start: 08-30-2024 End: 08-30-2024 Clinisync Result Encounter Pamela Oscar SALT MANAGER Work Phone: [facility] External Department Unsolicited Start: 08-25-2024 End: 08-25-2024 Refill Pamela Moore SALT MANAGER Work Phone: [facility] Comment on above: Allergic rhinitis, u nspecified seasonality, unspecified trigger (Primary Dx); Acute bronchitis, unspecified; Age related osteoporosis, unspecified pathological fracture presence ([facility]/HCC) Start: 08-18-2024 End: 08-18-2024 Bamboo flowsheet Pamela Moore SALT MANAGER Work Phone: [facility] Start: 08-18-2024 End: 08-18-2024 Bamboo flowsheet Pamela Oscar SALT MANAGER Work Phone: [facility] Start: 08-18-2024 End: 08-18-2024 Clinisync Result Encounter Pamela Oscar SALT MANAGER Work Phone: [facility] External Department Unsolicited Start: 08-18-2024 End: 08-18-2024 Office outpatient visit 15 minutes Pamela Moore SALT MANAGER Work Phone: [facility] Comment on above: Primary hypertension (CMS/HCC) (Primary Dx); Pelvic pain; Gastroesophageal reflux disease, unspecified whether esophagitis present; Obesity (BMI 30-39.9); Vitamin D deficiency; Class 1 obesity due to excess calories without serious comorbidity with body mass index (BMI) of 30.0 to 30.9 in adult Start: 08-18-2024 End: 08-18-2024 Orders Only Pamela Moore SALT MANAGER Work Phone: [facility] Comment on above: Hyperglycemia (Prima ry Dx) Start: 07-13-2024 End: 07-13-2024 Refill Pamela Moore SALT MANAGER Work Phone: [facility] Comment on above: Hypothyroidism (acqu ired) (CMS/HCC) (Primary Dx) Start: 07-07-2024 End: 07-07-2024 Bamboo flowsheet Pamela Moore SALT MANAGER Work Phone: [facility] Start: 07-07-2024 End: 07-13-2024 Bamboo flowsheet Pamelamisa Moore SALT MANAGER Work Phone: [facility] Start: 07-07-2024 End: 07-13-2024 Clinisync Result Encounter Pamela Moore SALT MANAGER Work Phone: [facility] Unsolicited Start: 07-07-2024 End: 07-09-2024 External Result Encounter Pamela Moore SALT MANAGER Work Phone: [facility] Unsolicited Start: 07-07-2024 End: 07-07-2024 Office outpatient visit 25 minutes Pamela Moore SALT MANAGER Work Phone: [facility] Comment on above: Encounter for well w kathy exam with routine gynecological exam (Primary Dx); Hypothyroidism (acquired) (CMS/[facility]); Vaginal discharge; Pelvic pain Start: 07-07-2024 End: 07-07-2024 Patient encounter procedure Pamela Moore SALT MANAGER Work Phone: [facility] Start: 07-07-2024 End: 07-07-2024 ambulatory PAMELA OSCAR Not Available Start: 06-24-2024 End: 06-25-2024 Refill Pamela Oscar SALT MANAGER Work Phone: [facility] Comment on above: Hyperlipidemia, unsp ecified (CMS/HCC) Start: 06-10-2024 End: 06-10-2024 Bamboo flowsheet Pamela Oscar SALT MANAGER Work Phone: [facility] Start: 06-10-2024 End: 06-10-2024 Bamboo flowsheet Pamela Moore SALT MANAGER Work Phone: [facility] Start: 06-10-2024 End: 06-10-2024 Office outpatient visit 25 minutes Pamela Moore SALT MANAGER Work Phone: [facility] Comment on above: Primary hypertension (CMS/HCC) (Primary Dx); Gastroesophageal reflux disease, unspecified whether esophagitis present; Vitamin D deficiency; Pre-diabetes; Hypothyroidism (acquired) ([facility]); Mixed hyperlipidemia ([facility]) Start: 06-10-2024 End: 06-10-2024 ambulatory PAMELA TAVOHHOLZ Not Available Start: 05-31-2024 End: 05-31-2024 Refill Pamela Moore SALT MANAGER Work Phone: [facility] Comment on above: Age related osteopor osis, unspecified pathological fracture presence ([facility]) Start: 05-10-2024 End: 05-10-2024 ambulatory PAMELA AICHHOLZ Not Available Start: 04-29-2024 End: 04-29-2024 ambulatory MD Jorge Goncalves Work Phone: [facility] Work Phone: Start: 04-29-2024 End: 04-29-2024 Patient encounter procedure MD Jorge Goncalves Work Phone: [facility] Work Phone: Start: 04-29-2024 End: 04-29-2024 Patient encounter procedure MD Jorge Goncalves Work Phone: [facility] Start: 04-29-2024 End: 04-29-2024 ambulatory MD Jorge Goncalves Work Phone: [facility] Work Phone: Start: 04-14-2024 Patient encounter procedure Pamela Moore SALT MANAGER Work Phone: [facility] Start: 12-22-2023 End: 01-21-2024 ambulatory BRAXTON Misa ESCALANTE [facility] Start: 12-15-2023 End: 12-22-2023 ambulatory PAMELA MOORE [facility] Start: 12-11-2023 End: 12-11-2023 ambulatory MD Jorge oGncalves Work Phone: [facility] Work Phone: Start: 12-11-2023 End: 12-11-2023 Patient encounter procedure MD Jorge Goncalves Work Phone: [facility] Work Phone: Start: 11-05-2023 Bamboo flowsheet Pamela Moore SALT MANAGER Work Phone: [facility] Start: 11-05-2023 Bamboo flowsheet Pamela Moore SALT MANAGER Work Phone: [facility] Start: 11-05-2023 End: 11-05-2023 Office outpatient visit 25 minutes Pamela Moore SALT MANAGER Work Phone: [facility] Comment on above: Gastroesophageal ref lux disease, unspecified whether esophagitis present (Primary Dx); Age related osteoporosis, unspecified pathological fracture presence (CMS/[facility]); Vitamin D deficiency; Pre-diabetes; Hypothyroidism (acquired) (CMS/HCC); Mixed hyperlipidemia (CMS/[facility]); Encounter for screening mammogram for malignant neoplasm of breast; BMI 30.0-30.9,adult; Chronic left shoulder pain Start: 02-20-2023 ambulatory JORGE GONCALVES Facility :[facility] Start: 01-03-2023 End: 01-04-2023 ambulatory COCO MOORE Facility:[facility] Start: 12-16-2022 End: 12-17-2022 ambulatory COCO PAMELA OSCAR Facility:[facility] Start: 11-07-2022 End: 11-08-2022 ambulatory COCO RODRIGUEZA OSCAR Facility:[facility] Start: 05-08-2022 End: 05-09-2022 ambulatory RECEIVER STOCKER PAMELA OSCAR Facility:[facility] Start: 02-13-2022 End: 02-14-2022 ambulatory COCO MOORE Facility:[facility] Start: 01-23-2022 End: 01-24-2022 ambulatory RECEIVER STOCKER PAMELA MOORE Facility:[facility] Start: 01-07-2022 End: 01-08-2022 ambulatory COCO MOORE Facility:[facility] Procedures Date Procedure Procedure Detail Performing Clinician Start: 04-13-2025 Hemoglobin glycosylated a1c Pamela Moore SALT MANAGER Work Phone: Start: 01-05-2025 MM TOMOSYNTHESIS SCR EENING BI Pamela Moore SALT MANAGER Work Phone: Start: 12-24-2024 ALL THYROID STIM HORMONE Pamela Moore SALT MANAGER Work Phone: Start: 10-11-2024 ALL THYROID STIM HORMONE Pamela Moore SALT MANAGER Work Phone: Start: 10-11-2024 ALL THYROXINE (T4) FREE Pamela Moore SALT MANAGER Work Phone: Start: 08-30-2024 MLR HEMOGLOBIN A1C Pamela Moore SALT MANAGER Work Phone: Start: 08-18-2024 TBH UA (CLEAN/CATCH) MICROSCOPIC IF INDICATE Pamela Moore SALT MANAGER Work Phone: Start: 07-07-2024 IGP,APTIMA HPV,AGE GDLN Pamela Moore SALT MANAGER Work Phone: Start: 07-07-2024 VAGINITIS (HTRX) Pamela Misa tammy SALT MANAGER Work Phone: Start: 04-29-2024 Plain X-ray of right shoulder MD Jorge Goncalves Work Phone: Start: 04-01-2024 End: 04-01-2024 Ophth medical xm&eval comprhnsv estab pt 1/> Presbyopia [...] 05-23-2031 Screening for malignant neoplasm of colon [facility] [facility] Start: 04-20-2026 End: 04-20-2026 Patient encounter procedure 04/20/2026 10:00 AM EDT Office Visit [facility] [address] [place] [id number] Pamela Moore, MARIKA [address] [place] [phone] [facility] Start: 04-13-2026 Medicare Annual Wellness (AWV) Medicare Annual Wellness (AWV) [facility] Start: 04-12-2026 End: 04-12-2026 Patient encounter procedure 04/12/2026 10:15 AM EDT Office Visit [facility] [address] [place] [address] [place], [address] [place] [address] [facility] Start: 04-07-2026 Tobacco Screening Tobacco Screening [facility] Start: 07-14-2025 End: 07-14-2025 Patient encounter procedure 07/14/2025 10:30 AM EDT Office Visit [facility] [address] [place] [phone] Pamela Moore, MARIKA [address] [place] [phone] [facility] Start: 05-23-2025 Influenza vaccination Influenza Vaccine [facility] Start: 04-28-2025 End: 04-28-2025 Patient encounter procedure 04/28/2025 3:50 PM EDT Office Visit [facility] [address] [facility] [address] [place] [address] Chaz Todd, DPNelson [address] [facility] [address] [place] [address] [facility] Start: 04-21-2025 End: 04-21-2026 CBC W Auto Differential panel - Blood CBC and differential Lab Routine Gastroesophageal reflux disease, unspecified whether esophagitis present Diverticulosis of large intestine without hemorrhage Black stools Expected: 04/21/2025 (Approximate), Expires: 04/21/[address] [facility] Work Phone: Comment on above: Expected: 04/21/2025 (Approximate), Expi res: 04/21/2026 Start: 04-21-2025 End: 04-21-2026 Comprehensive metabolic 2000 panel - Serum or Plasma Comprehensive metabolic panel Lab Routine Gastroesophageal reflux disease, unspecified whether esophagitis present Elevated liver function tests Diverticulosis of large intestine without hemorrhage Black stools Expected: 04/21/2025 (Approximate), Expires: 04/21/[address] [facility] Comment on above: Expected: 04/21/2025 (Approximate), Expi res: 04/21/2026 Start: 04-21-2025 End: 04-21-2026 Hemoglobin.gastrointestin al.lower [Presence] in Stool by Immunoassay Occult blood x 1, stool Lab Routine Gastroesophageal reflux disease, unspecified whether esophagitis present Diverticulosis of large intestine without hemorrhage Black stools Expected: 04/21/2025 (Approximate), Expires: 04/21/[address] [facility] Comment on above: Expected: 04/21/2025 (Approximate), Expi res: 04/21/2026 Start: 04-21-2025 End: 04-21-2026 Iron and Iron binding capacity panel - Serum or Plasma Iron level Lab Routine Gastroesophageal reflux disease, unspecified whether esophagitis present Diverticulosis of large intestine without hemorrhage Black stools Expected: 04/21/2025 (Approximate), Expires: 04/21/[address] [facility] Comment on above: Expected: 04/21/2025 (Approximate), Expi res: 04/21/2026 Start: 04-21-2025 End: 04-21-2026 Urinalysis complete panel - Urine Urinalysis with reflex microscopic (clean catch) Lab Routine Gastroesophageal reflux disease, unspecified whether esophagitis present Diverticulosis of large intestine without hemorrhage Black stools Expected: 04/21/2025 (Approximate), Expires: 04/21/2026 [facility] Comment on above: Expected: 04/21/2025 (Approximate), Expi res: 04/21/2026 Start: 04-14-2025 Medicare Annual Wellness (AWV) Medicare Annual Wellness (AWV) [facility] Start: 04-13-2025 End: 04-13-2025 Patient encounter procedure [facility] Comment on above: Primary hypertension (Primary Dx); Gastroesophageal reflux disease, unspecified whether esophagitis present; Age related osteoporosis, unspecified pathological fracture presence ; Pre-diabetes; Hypothyroidism (acquired) ; Class 1 obesity due to excess calories without serious comorbidity with body mass index (BMI) of 30.0 to 30.9 in adult; Mixed hyperlipidemia ; Encounter for subsequent annual wellness visit (AWV) in Medicare patient Start: 01-12-2025 End: 01-12-2025 Patient encounter procedure [facility] Comment on above: Primary hypertension (CMS/HCC) (Primary Dx); Hypothyroidism (acquired) (CMS/[facility]); Allergic rhinitis, unspecified seasonality, unspecified trigger Start: 12-13-2024 End: 10-13-2025 Thyroxine (T4) free [Mass/volume] in Serum or Plasma T4, free Lab Routine Hypothyroidism (acquired) (CMS/HCC) Expected: 12/13/2024 (Approximate), Expires: 10/13/2025 [facility] Comment on above: Expected: 12/13/2024 (Approximate), Expi res: 10/13/2025 Start: 12-11-2024 End: 10-13-2025 Thyrotropin [Units/volume] in Serum or Plasma TSH Lab Routine Hypothyroidism (acquired) (CMS/HCC) Expected: 12/11/2024 (Approximate), Expires: 10/13/2025 [facility] Work Phone: Comment on above: Expected: 12/11/2024 (Approximate), Expi res: 10/13/2025 Start: 10-13-2024 End: 10-13-2024 Patient encounter procedure [facility] Comment on above: Primary hypertension ([facility]) (Primary Dx); Class 1 obesity due to excess calories without serious comorbidity with body mass index (BMI) of 30.0 to 30.9 in adult; Hypothyroidism (acquired) ([facility]) Start: 10-04-2024 End: 10-04-2025 Thyrotropin [Units/volume] in Serum or Plasma TSH Lab Routine Hypothyroidism (acquired) (CMS/HCC) Expected: 10/04/2024 (Approximate), Expires: 10/04/2025 [facility] Work Phone: Comment on above: Expected: 10/04/2024 (Approximate), Expi res: 10/04/2025 Start: 10-04-2024 End: 10-04-2025 Thyroxine (T4) free [Mass/volume] in Serum or Plasma T4, free Lab Routine Hypothyroidism (acquired) ([facility]/HCC) Expected: 10/04/2024 (Approximate), Expires: 10/04/[address] [facility] Comment on above: Expected: 10/04/2024 (Approximate), Expi res: 10/04/2025 Start: 09-09-2024 End: 09-09-2024 Patient encounter procedure 09/09/2024 9:00 AM EST Office Visit [facility] [address] [place] [address] Pamela Moore NP [address] [place] [address] [facility] Start: 08-18-2024 End: 08-18-2025 Hemoglobin A1c/Hemoglobin.total in Blood Hemoglobin A1c Lab Routine Hyperglycemia Expected: 08/18/2024 (Approximate), Expires: 08/18/2025 [facility] Work Phone: Comment on above: Expected: 08/18/2024 (Approximate), Expi res: 08/18/2025 Start: 08-18-2024 End: 08-18-2024 Patient encounter procedure [facility] Comment on above: Pelvic pain (Primary Dx); Primary hypertension (CMS/HCC); Gastroesophageal reflux disease, unspecified whether esophagitis present; Obesity (BMI 30-39.9) Start: 07-07-2024 End: 07-07-2025 THIN PREP TIS PAP AND HR HPV DNA THIN PREP TIS PAP AND HR HPV DNA Pathology and Cytology Routine Encounter for well woman exam with routine gynecological exam Expected: 07/07/2024 (Approximate), Expires: 07/07/[address] [facility] Work Phone: Comment on above: Expected: 07/07/2024 (Approximate), Expi res: 07/07/2025 Start: 07-07-2024 End: 07-07-2025 US Pelvis transvaginal US pelvis transvaginal Imaging Routine Pelvic pain Expected: 07/07/2024 (Approximate), Expires: 07/07/[address] [facility] Comment on above: Expected: 07/07/2024 (Approximate), Expi res: 07/07/2025 Start: 07-07-2024 End: 07-07-2025 VAGINITIS (HTRX) VAGINITIS (HTRX) Lab Routine Vaginal discharge Expected: 07/07/2024 (Approximate), Expires: 07/07/[address] [facility] Comment on above: Expected: 07/07/2024 (Approximate), Expi res: 07/07/2025 Start: 07-07-2024 End: 07-07-2024 Patient encounter procedure [facility] Comment on above: Hypothyroidism (acquired) (CMS/HCC) Start: 06-10-2024 End: 06-10-2025 25-hydroxyvitamin D3 [Mass/volume] in Serum or Plasma Vitamin D 25 hydroxy Lab Routine Mixed hyperlipidemia (CMS/HCC) Expected: 06/10/2024 (Approximate), Expires: 06/10/[address] [facility] Comment on above: Expected: 06/10/2024 (Approximate), Expi res: 06/10/2025 Start: 06-10-2024 End: 06-10-2025 CBC W Auto Differential panel - Blood CBC and differential Lab Routine Gastroesophageal reflux disease, unspecified whether esophagitis present Expected: 06/10/2024 (Approximate), Expires: 06/10/[address] [facility] Work Phone: Comment on above: Expected: 06/10/2024 (Approximate), Expi res: 06/10/2025 Start: 06-10-2024 End: 06-10-2025 Comprehensive metabolic 2000 panel - Serum or Plasma Comprehensive metabolic panel Lab Routine Primary hypertension ([facility]/HCC) Vitamin D deficiency Pre-diabetes Hypothyroidism (acquired) ([facility]) Mixed hyperlipidemia ([facility]/HCC) Expected: 06/10/2024 (Approximate), Expires: 06/10/[address] [facility] Comment on above: Expected: 06/10/2024 (Approximate), Expi res: 06/10/2025 Start: 06-10-2024 End: 06-10-2025 Lipid 1996 panel - Serum or Plasma Lipid panel Lab Routine Mixed hyperlipidemia ([facility]/HCC) Expected: 06/10/2024 (Approximate), Expires: 06/10/[address] [facility] Comment on above: Expected: 06/10/2024 (Approximate), Expi res: 06/10/2025 Start: 06-10-2024 End: 06-10-2025 Thyrotropin [Units/volume] in Serum or Plasma TSH Lab Routine Hypothyroidism (acquired) ([facility]) Expected: 06/10/2024 (Approximate), Expires: 06/10/[address] [facility] Comment on above: Expected: 06/10/2024 (Approximate), Expi res: 06/10/2025 Start: 06-10-2024 End: 06-10-2025 Thyroxine (T4) free [Mass/volume] in Serum or Plasma T4, free Lab Routine Hypothyroidism (acquired) ([facility]/HCC) Expected: 06/10/2024 (Approximate), Expires: 06/10/[address] [facility] Comment on above: Expected: 06/10/2024 (Approximate), Expi res: 06/10/2025 Start: 06-10-2024 End: 06-10-2025 Triiodothyronine (T3) Free [Mass/volume] in Serum or Plasma T3, free Lab Routine Hypothyroidism (acquired) ([facility]/HCC) Expected: 06/10/2024 (Approximate), Expires: 06/10/2025 [facility] Comment on above: Expected: 06/10/2024 (Approximate), Expi res: 06/10/2025 Start: 06-10-2024 End: 06-10-2025 Urinalysis complete panel - Urine Urinalysis with reflex microscopic (clean catch) Lab Routine Primary hypertension (CMS/HCC) Expected: 06/10/2024 (Approximate), Expires: 06/10/2025 [facility] Comment on above: Expected: 06/10/2024 (Approximate), Expi res: 06/10/2025 Start: 06-10-2024 End: 06-10-2024 Patient encounter procedure [facility] Comment on above: Arrived Start: 05-23-2024 Influenza vaccination Influenza Vaccine [facility] Start: 05-08-2024 Medicare Annual Wellness (AWV) Medicare Annual Wellness (AWV) [facility] Start: 04-29-2024 Plain X-ray of right shoulder XR shoulder RT min 2V* [facility] Start: 04-29-2024 XR Shoulder - right Views [facility] Start: 03-20-2024 Tobacco Screening Tobacco Screening [facility] Start: 03-08-2024 End: 03-08-2024 Patient encounter procedure 03/08/2024 9:40 AM EDT Office Visit [facility] [address] [place] [address] Pamela Moore NP [address] [place] [address] [facility] Start: 01-05-2024 End: 01-03-2025 MG Breast - bilateral Screening Bilateral screening mammogram Imaging Routine Encounter for screening mammogram for malignant neoplasm of breast Expected: 01/05/2024 (Approximate), Expires: 01/03/2025 [facility] Comment on above: Expected: 01/05/2024 (Approximate), Expi res: 01/03/2025 Start: 12-11-2023 Plain X-ray of left shoulder XR shoulder LT min 2V* [facility] Start: 12-11-2023 XR Shoulder - left Views [facility] Start: 11-05-2023 End: 11-05-2024 25-hydroxyvitamin D3 [Mass/volume] in Serum or Plasma Vitamin D 25 hydroxy Lab Routine Vitamin D deficiency Expected: 11/05/2023 (Approximate), Expires: 11/05/[address] [facility] Comment on above: Expected: 11/05/2023 (Approximate), Expi res: 11/05/2024 Start: 11-05-2023 End: 11-05-2024 CBC W Auto Differential panel - Blood CBC and differential Lab Routine Gastroesophageal reflux disease, unspecified whether esophagitis present Expected: 11/05/2023 (Approximate), Expires: 11/05/[address] [facility] Work Phone: Comment on above: Expected: 11/05/2023 (Approximate), Expi res: 11/05/2024 Start: 11-05-2023 End: 11-05-2024 Comprehensive metabolic 2000 panel - Serum or Plasma Comprehensive metabolic panel Lab Routine Gastroesophageal reflux disease, unspecified whether esophagitis present Age related osteoporosis, unspecified pathological fracture presence (CMS/HCC) Vitamin D deficiency Pre-diabetes Mixed hyperlipidemia (CMS/HCC) Expected: 11/05/2023 (Approximate), Expires: 11/05/[address] [facility] Comment on above: Expected: 11/05/2023 (Approximate), Expi res: 11/05/2024 Start: 11-05-2023 End: 11-05-2024 DXA Skeletal system Views for bone density DEXA bone density Imaging Routine Age related osteoporosis, unspecified pathological fracture presence (CMS/HCC) Expected: 11/05/2023 (Approximate), Expires: 11/05/[address] [facility] Comment on above: Expected: 11/05/2023 (Approximate), Expi res: 11/05/2024 Start: 11-05-2023 End: 11-05-2024 Hemoglobin A1c measurement Hemoglobin A1c Lab Routine Pre-diabetes Expected: 11/05/2023 (Approximate), Expires: 11/05/[address] [facility] Comment on above: Expected: 11/05/2023 (Approximate), Expi res: 11/05/2024 Start: 11-05-2023 End: 11-05-2024 Lipid 1996 panel - Serum or Plasma Lipid panel Lab Routine Pre-diabetes Hypothyroidism (acquired) (CMS/HCC) Mixed hyperlipidemia (CMS/HCC) Expected: 11/05/2023 (Approximate), Expires: 11/05/[address] [facility] Comment on above: Expected: 11/05/2023 (Approximate), Expi res: 11/05/2024 Start: 11-05-2023 End: 11-05-2024 Microalbumin/Creatinine panel in random Urine Microalbumin / creatinine, urine ratio Lab Routine Pre-diabetes Expected: 11/05/2023 (Approximate), Expires: 11/05/[address] [facility] Comment on above: Expected: 11/05/2023 (Approximate), Expi res: 11/05/2024 Start: 11-05-2023 End: 11-05-2024 Urinalysis complete panel - Urine Urinalysis with reflex microscopic (clean catch) Lab Routine Pre-diabetes Expected: 11/05/2023 (Approximate), Expires: 11/05/[address] [facility] Comment on above: Expected: 11/05/2023 (Approximate), Expi res: 11/05/2024 Start: 11-05-2023 End: 11-05-2023 Patient encounter procedure 11/05/2023 9:40 AM EST Office Visit [facility] [address] [place] [address] Pamela Moore NP [address] [place] [address] Gastroesophageal reflux disease, unspecified whether esophagitis present (Primary Dx); Age related osteoporosis, unspecified pathological fracture presence (CMS/HCC); Vitamin D deficiency; Pre-diabetes; Hypothyroidism (acquired) (CMS/HCC); Mixed hyperlipidemia (CMS/HCC); Encounter for screening mammogram for malignant neoplasm of breast [facility] Comment on above: Gastroesophageal reflux disease, unspeci fied whether esophagitis present (Primary Dx); Age related osteoporosis, unspecified pathological fracture presence (CMS/HCC); Vitamin D deficiency; Pre-diabetes; Hypothyroidism (acquired) (CMS/HCC); Mixed hyperlipidemia (CMS/HCC); Encounter for screening mammogram for malignant neoplasm of breast Start: 05-23-2023 Influenza vaccination Influenza Vaccine (#1) [facility] Start: 2012 Fall Risk Screening Fall Risk Screening [facility] Start: 2012 Pneumococcal Vaccine: 65+ Years (1 - PCV) Pneumococcal Vaccine: 65+ Years (1 - PCV) [facility] Start: 1997 Administration of varicella zoster vaccine Zoster (Shingles) Vaccine (1 of 2) [facility] Start: 1966 DTaP,Tdap and Td Vaccines (1 - Tdap) DTaP,Tdap and Td Vaccines (1 - Tdap) [facility] Start: 1965 Adult BMI Screening Adult BMI Screening [facility] Start: 1959 Depression Screening Depression Screening [facility] Start: 1947 Screening for malignant neoplasm of colon [facility] Payers Date Payer Category Payer Self-pay [id number] 2021 Medicare (Managed Care) [facility] [id number] 2019 Medicare [id number] 2019 Medicare HMO [employer] [id number] 1959 Unknown [id number] 1947 Unknown [id number] 2.16.840.1.950125.3.579.2. 593 1947 Unknown [id number] 2.16.840.1.717853.3.579.2. 593 1947 Unknown [id number] 2.16.840.1.163849.3.579.2. 593 1947 Unknown [id number] 2.16.840.1.472770.3.579.2. 593 1947 Unknown [id number] 2.16.840.1.757687.3.579.2. 593 1947 Unknown [id number] 2.16.840.1.836336.3.579.2. 593 1947 Unknown [id number] 2.16.840.1.722279.3.579.2. 593 1947 Unknown [id number] 2.16.840.1.746346.3.579.2. 718 1947 Unknown [id number] 2.16.840.1.664069.3.579.2. 1286 1947 Unknown [id number] 2.16.840.1.181466.3.579.2. 1286 1947 Unknown [id number] 2.16.840.1.463294.3.579.2. 1286 1947 Unknown [id number] 2.16.840.1.959020.3.579.2. 1259 1947 Unknown [id number] 2.16.840.1.086032.3.579.2. 1259 1947 Unknown [id number] 2.16.840.1.117361.3.579.2. 1259 1947 Unknown [id number] 2.16.840.1.110021.3.579.2. 1259 1947 Unknown [id number] 2.16.840.1.593620.3.579.2. 1259 1947 Unknown [id number] 2.16.840.1.417030.3.579.2. 1259 1947 Unknown [id number] 2.16.840.1.362743.3.579.2. 1259 Medicaid Medicaid [id number] Medicare Medicare [id number] Unknown [id number] 2.16.840.1.133622.3.579.2. 531 Unknown [id number] 2.16.840.1.411578.3.579.2. 531 Worker's Compensation [id number] Social History Date Type Detail Facility Start: 01-31-2023 End: 03-20-2023 Tobacco smoking status NHIS Never smoked tobacco [facility] Start: 01-31-2023 End: 03-20-2023 Tobacco use and exposure Smokeless tobacco non-user [facility] Start: 11-05-2023 End: 04-13-2025 Alcohol intake Ex-drinker (finding) [facility] Start: 09-17-2023 End: 04-13-2025 History of Social function [facility] Start: 09-17-2023 End: 04-13-2025 Tobacco use panel [facility] Start: 03-15-2023 Alcohol Comment Caffeine Intak e: more then 4 cups/day [facility] Start: 1945 Sex Assigned At Not on file [facility] Start: 1945 Sex Assigned At Female F [facility] Start: 04-01-2024 End: 04-07-2025 Alcoholic beverage intake Lifetime non-drinker (finding) [facility] Childcare Unknown [facility] Start: 04-27-2015 Sex Female (finding) [facility] Functional Status Date Assessment Result Facility 04-13-2025 Patient Health Quest ionnaire 2 item (PHQ-2) [Reported] [facility] Clinical Notes 11-05-2023 to 04-13-2025 Pamela Moore NP - 04/13/2025 12:51 PM EDFaby Moore NP - 04/13/2025 12:50 PM Zhane Moore NP - 04/13/2025 11:31 AM EDTHSHANICE STEARNS - 04/13/2025 10:30 AM EDTPatient Instructions Note Date & Type Note Facility 04-13-2025 History of Presen t illness Narrative Associated Problem(s): LORI (generalized anxiety disorder) Declines meds for this Also offered counseling, at this time she has declined 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 [...] to help her sleep better at night Images from the original note were not included. Heidy Ponce is a 79 y.o. female presents with [...] pain. 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 Associated Problem(s): Hypothyroidism (acquired) Currently taking levothyroxine Check labs yearly , prn dose changes or changes in sxs Associated Problem(s): Pre-diabetes Recommend weight loss, exercises, and cutting back on carbs/sugary foods A1c 6.2% 04/13/25 Associated Problem(s): Osteoporosis DEXA: 24 -1.6 left FA On fosamax Associated Problem(s): GERD (gastroesophageal reflux disease) Recommendations: freq small meals, nothing to eat or drink at least 2 hours prior to bed, limit caffeine, alcohol, as well as spicy foods Meds to limit or avoid if possible: NSAIDS Elevate HOB if possible Associated Problem(s): Primary hypertension Please check blood pressure [...] this as well documented in this encounter [facility] 04-13-2025 Instructions Pamela Moore NP - 04/13/2025 10:30 AM EDT Diverticulitis: soft diet for next day of so, take atb, if worsening in pain to to ER I would like you to go see someone for counseling documented in this encounter [facility] 04-07-2025 History of Presen t illness Narrative Heidy Ponce 1945 Chief Complaint: Heidy Ponce had concerns including Blurred Vision. HPI Blurred Vision In both eyes. Vision is blurred. Severity is moderate. It is worse throughout the day. Since onset it is stable. Treatments tried include glasses. Comments Established patient here for complete eye exam. Patient has a small bump on RLL ongoing for 1 month. Patient using Blink BID OU. Patient is happy with current glasses and does not want a refraction. Last edited by Briana Saravia on 04/07/2025 10:14 AM. ROS Positive for: Eyes Negative for: Constitutional, Gastrointestinal, Neurological, Skin, Genitourinary, Musculoskeletal, HENT, Endocrine, Cardiovascular, Respiratory, Psychiatric, Allergic/Imm, Heme/Lymph Last edited by Briana Saravia on 04/07/2025 9:56 AM. No current outpatient medications on file. [...] mg total) by mouth in the morning. biotin 1 mg capsule Take by mouth. cholecalciferol, vitamin D3, 2,000 units tablet Take 1 tablet (2,000 Units total) by mouth in the morning. fluticasone propionate (FLONASE) 50 mcg/actuation nasal spray folic acid (FOLVITE) 1 mg tablet Take 1 tablet (1 mg total) by mouth in the morning. levothyroxine (SYNTHROID, LEVOTHROID) 50 MCG tablet Take 1 tablet (50 mcg total) by mouth in the morning. loratadine (CLARITIN) 10 mg tablet Take 1 tablet (10 mg total) by mouth in the morning. mag lysin,malate-potassium cit 125-47.5 mg tablet Take by mouth. MULTIVITAMIN ORAL Take by mouth. acetaminophen-codeine (TYLENOL #3) 300-30 mg per tablet TAKE 1 TABLET BY MOUTH EVERY 6 HOURS NEEDED for moderate pain for up to 3 days (Patient not taking: Reported on 04/07/2025) cetirizine (ZyrTEC) 10 mg tablet Take 1 tablet (10 mg total) by mouth in the morning. (Patient not taking: Reported on 04/07/2025) docosahexaenoic acid-epa 120-180 mg capsule Take 1 capsule by mouth. (Patient not taking: Reported on 04/07/2025) erythromycin (ILOTYCIN) ophthalmic ointment Administer 1.25 cm (0.5 inches total) to the right eye in the morning and 1.25 cm (0.5 inches total) before bedtime. Do all this for 7 days. furosemide (LASIX) 20 mg tablet Take 1 tablet (20 mg total) by mouth. (Patient not taking: Reported on 04/07/2025) naproxen sodium (ALEVE) 220 mg tablet Take 220 mg by mouth. (Patient not taking: Reported on 04/07/2025) simvastatin (ZOCOR) 40 mg tablet Take 40 mg by mouth nightly. (Patient not taking: Reported on 04/07/2025) sodium,potassium,mag sulfates (SUPREP BOWEL PREP KIT) 17.5-3.13-1.6 gram recon soln 177 ml,actual weight, 2 times daily, Oral (Patient not taking: Reported on 04/07/2025) No current facility-administered medications for this visit. [...] Visual Acuity (Snellen - Linear) Right Left Dist cc 20/25 20/20 -1 Near cc J2 J1 Correction: Glasses Patient used Rx1 for [facility]. Tonometry (Applanation, 11:05 AM) Right Left Pressure 19 19 Pupils Pupils Right PERRL Left PERRL Visual [place] Normal C-20 OU. Extraocular Movement Right Left Full, Ortho Full, Ortho Neuro/Psych Oriented x3: Yes Mood/Affect: Normal Dilation Both eyes: 1.0% Tropicamide, 2.5% Phenylephrine Hydrochloride @ 11:05 AM Additional Tests Keratometry (Automated) K1 Carney K2 Carney Right 43.75 059 45.00 149 Left 43.75 122 44.50 032 Slit Lamp and Fundus Exam External Exam Right Left External Normal Normal Slit Lamp Exam Right Left Lids/Lashes Infected lash follicle Normal Conjunctiva/Sclera White and quiet White and quiet Cornea Clear Clear Anterior Chamber Deep and quiet Deep and quiet Iris Round and reactive Round and reactive Lens 3+ Nuclear sclerosis 3+ Nuclear sclerosis Fundus Exam Right Left Vitreous Posterior vitreous detachment Posterior vitreous detachment Disc Normal Normal C/D Ratio Vertical 0.2 0.2 C/D Ratio Horizontal 0.2 0.2 Macula Normal Normal Vessels Normal Normal Periphery Normal Normal Refraction Wearing Rx Sphere Cylinder Carney Right -2.50 +1.25 159 Left -3.50 +1.25 022 Age: 3yr Type: SVL Wearing Rx #2 Sphere Cylinder Carney Right -2.50 +1.00 161 Left -3.50 +1.25 030 Age: 3yr Type: SVL Manifest Refraction (Auto) Sphere Cylinder Carney Right -2.50 +1.25 150 Left -3.25 +1.00 027 Orders: No orders of the defined types were placed in this encounter. Assessment/Plan: 1. Age-related nuclear cataract of both eyes (Primary) 2. Posterior vitreous detachment, bilateral 3. Infection of eyelash follicle of right eye - erythromycin (ILOTYCIN) ophthalmic ointment; Administer 1.25 cm (0.5 inches total) to the right eye in the morning and 1.25 cm (0.5 inches total) before bedtime. Do all this for 7 days. Dispense: 3.5 g; Refill: 0 Eyelid treatment program planned including hot compresses for at least 5-10 minutes twice a day and start Erythromycin manda BID x 7 days, advised patient to call if no improvement. Recommend OTC Pataday or Zaditor as directed for itching and continue AT's for dryness. The patients cataracts are not causing enough difficulties in daily life for surgery. Follow for now. Retina is stable, no retinal breaks or vitreous abnormalities on dilated exam today. Return Visit: Return for 1 year complete exam. Physician: LONG BOLIVAR OD Scribe Statement:IRenetta COA scribed for and in the presence of LONG BOLIVAR OD who performed the above service. NICKOLAS Castro 04/07/25 1108 NICKOLAS Castro 04/07/25 1125 documented in this encounter [facility] [employer] 01-12-2025 History of Presen t illness Narrative 143/63 53 Pt would like to discuss a constant hunger- she is often bored and thinks about food. Pt is unsure that maybe she needs to include more protein in her diet Knees, calfs, feet hurts after standing about 10-15 min. Images from the original note were not included. Heidy Ponce is a 79 y.o. female presents with chief complaint of LORI HPI: Here for a recheck: overall has been doing fairly well No constipation, however eats a lot of veggetables and notes that she feels hungary more. Less hungary if eats more protein Talks a lot about her past growing up and also relation ships w parents, siblings and children More anxious as she talks about this SUBJECTIVE: MEDICATIONS: Current Outpatient Medications Medication Instructions albuterol HFA 90 mcg/act inhaler 2 puffs, Inhalation, Every 6 hours PRN alendronate (FOSAMAX) 70 mg, Oral, Every 7 days atorvastatin (LIPITOR) 20 mg, Oral, Nightly benzonatate (TESSALON) 100 mg, 3 times daily PRN cholecalciferol (VITAMIN D-3) 2,000 Units, Daily fluticasone (Flonase) 50 MCG/ACT nasal spray 2 sprays, Each Nostril, Daily levothyroxine (SYNTHROID, LEVOXYL) 50 mcg, Oral, Daily [...] father and mother. OBJECTIVE: Visit Vitals BP 160/70 (BP Location: Left arm, Patient Position: Sitting, BP Cuff Size: Adult long) Pulse 62 Temp 98.3 F (Temporal) Resp 18 Wt 158 lb SpO2 98% BMI 29.85 kg/m Smoking Status Never BSA 1.76 m [...] Normal range of motion and neck supple. Skin: General: Skin is warm and dry. [...] file. Problem List Items Addressed This Visit Allergic rhinitis Is prescribed oral antihistamine and flonase nasal spray Hypothyroidism (acquired) (CMS/HCC) Currently taking levothyroxine Check labs yearly , prn dose changes or changes in sxs Primary hypertension (CMS/HCC) - Primary Please check blood pressure daily and record DASH diet Limit caffeine Contact office if chest pain, pressure, dizziness, shortness of breath, swelling legs Home readings low 140/60's Associated Problem(s): Allergic rhinitis Is prescribed oral antihistamine and flonase nasal spray Associated Problem(s): Hypothyroidism (acquired) (CMS/HCC) Currently taking levothyroxine Check labs yearly , prn dose changes or changes in sxs Associated Problem(s): Primary hypertension (CMS/HCC) Please check blood pressure daily and record DASH diet Limit caffeine Contact office if chest pain, pressure, dizziness, shortness of breath, swelling legs Home readings low 140/60's documented in this encounter [facility] 10-13-2024 History of Presen t illness Narrative Associated Problem(s): LORI (generalized anxiety disorder) ([facility]) Will be referred to counseling: [facility], [facility] LORI 7 score= 1, 10/14/24 PHQ 9 score= 2, 10/14/24 Does not want meds Will need to find counselor that takes medicare Pt brought in wrist BP device: left wrist 174/90 67 heart rate 2nd reading after my 2nd readin/88 Images from the original note were not included. Heidy Ponce is a 78 y.o. female presents [...] follow-ups on file. Associated Problem(s): Hypothyroidism (acquired) (CMS/[facility]) Is currently taking 25mcg daily Current TSH [...] component here too documented in this encounter [facility] 10-13-2024 Instructions Pamela Moore NP - 10/13/2024 9:40 AM EST We will refer you to counseling services for anxiety Call me after 4 weeks on new thyroid dose documented in this encounter [facility] 08-18-2024 History of Presen t illness Narrative [...] the original note were not included. Heidy Ponce is a 78 y.o. female presents [...] in 8 weeks documented in this encounter [facility] 08-18-2024 Instructions Pamela Moore NP - 08/18/2024 9:40 AM EST Check blood pressure twice a day and record it When you come back in 8 weeks bring readings AND BP machines with you so we can verify if they are accurate documented in this encounter [facility] 07-07-2024 History of Presen t illness Narrative [...] trax vaginitis, suspect BV,will await culture [facility] [id number] Exp: 09/21/24 [id number] Images from the original note were not included. Heidy Ponce is a 78 y.o. female presents [...] nursing note reviewed. Exam conducted with a management consultant present. Constitutional: General: She is not in [...] trax vaginitis, suspect BV,will await culture [facility] [id number] Exp: 09/21/24 [id number] Relevant Orders VAGINITIS (HTRX) Pelvic pain D/t limitation of bimanual exam and pt pain bilat adenexal region Will order pelvic US No family hx of cervical/ovarian/uterine cancer Relevant Orders US pelvis transvaginal documented in this encounter [facility] 06-10-2024 History of Presen t illness Narrative [...] the original note were not included. Heidy Ponce is a 78 y.o. female presents [...] microscopic (clean catch) documented in this encounter [facility] 04-01-2024 History of Presen t illness Narrative Heidy Ponce 1945 Chief Complaint: Heidy Ponce had concerns including Eye Exam. HPI [...] 10:56 AM Additional Tests Keratometry (Automated) K1 Carney K2 Carney Right 43.75 059 44.75 149 Left 43.75 [...] Normal Normal Refraction Wearing Rx Sphere Cylinder Carney Right -2.50 +1.00 160 Left -3.50 +1.25 030 Age: 4yrs Type: SVL-distance Manifest Refraction (Auto) Sphere Cylinder Carney Dist VA Add Near VA Right -2.50 +1.50 156 Left -3.50 +1.25 025 Manifest Refraction #2 Sphere Cylinder Carney Dist VA Add Near VA Right -2.50 +1.25 160 20/20 +2.50 J1+ Left -3.50 +1.25 020 20/20 +2.50 J1+ Final Rx Sphere Cylinder Carney Dist VA Add Near VA Right -2.50 [...] Bolivar OD by Renetta Mccoy Doctor Statement: I, Long Bolivar OD personally performed the services described in the documentation, as scribed by Renetta Mccoy in my presence. documented in this encounter [facility] 11-05-2023 History of Presen t illness Narrative Associated Problem(s): Chronic left shoulder pain Will refer to Dr De La Fuente in [place] per pt request Associated Problem(s): Encounter for [...] the original note were not included. Heidy Ponce is a 77 y.o. female presents [...] refer to Dr De La Fuente in [place] per pt request Relevant Orders Ambulatory referral [...] Status Primary osteoarthritis of left shoulder acute [facility] Work Phone: Evaluation note* Diagnosis Onset Date Resolution Status Primary osteoarthritis of left shoulder acute Primary osteoarthritis, right shoulder acute Rotator cuff syndrome of right shoulder acute [facility] Work Phone: Evaluation note* Diagnosis Hyperlipidemia, unspecified (CMS/HCC) documented in this encounter [facility] HealthcareEvaluation note* Diagnosis Gastroesophageal reflux disease, unspecified whether esophagitis present- Primary Age related osteoporosis, unspecified pathological fracture presence (CMS/HCC) Vitamin D deficiency Pre-diabetes Other abnormal glucose Hypothyroidism (acquired) ([facility]/HCC) Unspecified hypothyroidism Mixed hyperlipidemia ([facility]) Mixed hyperlipidemia Encounter for screening mammogram for [...] related osteoporosis, unspecified pathological fracture presence ([facility]/HCC) Hyperlipidemia, unspecified ([facility]) Pre-diabetes Other abnormal glucose Obesity (BMI 30-39.9) Hypothyroidism (acquired) ([facility]) Unspecified hypothyroidism Chronic osteoarthritis Osteoarthrosis, unspecified whether generalized or localized, unspecified site Elevated blood pressure reading Elevated blood pressure reading without diagnosis of hypertension Primary hypertension ([facility])- Primary Unspecified essential hypertension Obesity (BMI 30-39.9) LORI (generalized anxiety disorder) ([facility]) Generalized anxiety disorder Primary hypertension ([facility])- Primary Unspecified essential hypertension Gastroesophageal reflux disease, unspecified whether esophagitis present Vitamin D deficiency Pre-diabetes Other abnormal glucose Hypothyroidism (acquired) ([facility]) Unspecified hypothyroidism Mixed hyperlipidemia ([facility]) Mixed hyperlipidemia Encounter for well woman exam with routine gynecological exam- Primary Hypothyroidism (acquired) ([facility]) Unspecified hypothyroidism Vaginal discharge Leukorrhea, not specified as infective Pelvic pain documented in this encounter [facility] HealthcareEvaluation note* Diagnosis Gastroesophageal reflux disease, unspecified whether esophagitis present- Primary Age related osteoporosis, unspecified pathological fracture presence (CMS/HCC) Vitamin D deficiency Pre-diabetes Other abnormal glucose Hypothyroidism (acquired) ([facility]) Unspecified hypothyroidism Mixed hyperlipidemia ([facility]) Mixed hyperlipidemia Encounter for screening mammogram for [...] related osteoporosis, unspecified pathological fracture presence ([facility]) Hyperlipidemia, unspecified ([facility]) Pre-diabetes Other abnormal glucose Obesity (BMI 30-39.9) Hypothyroidism (acquired) ([facility]) Unspecified hypothyroidism Chronic osteoarthritis Osteoarthrosis, unspecified whether generalized or localized, unspecified site Elevated blood pressure reading Elevated blood pressure reading without diagnosis of hypertension Primary hypertension ([facility])- Primary Unspecified essential hypertension Obesity (BMI 30-39.9) LORI (generalized anxiety disorder) ([facility]) Generalized anxiety disorder Primary hypertension ([facility])- Primary Unspecified essential hypertension Gastroesophageal reflux disease, unspecified whether esophagitis present Vitamin D deficiency Pre-diabetes Other abnormal glucose Hypothyroidism (acquired) ([facility]) Unspecified hypothyroidism Mixed hyperlipidemia ([facility]) Mixed hyperlipidemia Encounter for well woman exam with routine gynecological exam- Primary Hypothyroidism (acquired) ([facility]) Unspecified hypothyroidism Vaginal discharge Leukorrhea, not specified as infective Pelvic pain Hypothyroidism (acquired) ([facility])- Primary Unspecified hypothyroidism documented in this encounter [facility] HealthcareEvaluation note* Diagnosis Gastroesophageal reflux disease, unspecified whether esophagitis present- Primary Age related osteoporosis, unspecified pathological fracture presence ([facility]) Vitamin D deficiency Pre-diabetes Other abnormal glucose Hypothyroidism (acquired) ([facility]) Unspecified hypothyroidism Mixed hyperlipidemia ([facility]) Mixed hyperlipidemia Encounter for screening mammogram for [...] related osteoporosis, unspecified pathological fracture presence ([facility]) Hyperlipidemia, unspecified ([facility]) Pre-diabetes Other abnormal glucose Obesity (BMI 30-39.9) Hypothyroidism (acquired) ([facility]) Unspecified hypothyroidism Chronic osteoarthritis Osteoarthrosis, unspecified whether generalized or localized, unspecified site Elevated blood pressure reading Elevated blood pressure reading without diagnosis of hypertension Primary hypertension ([facility])- Primary Unspecified essential hypertension Obesity (BMI 30-39.9) LORI (generalized anxiety disorder) ([facility]) Generalized anxiety disorder Primary hypertension ([facility])- Primary Unspecified essential hypertension Gastroesophageal reflux disease, unspecified whether esophagitis present Vitamin D deficiency Pre-diabetes Other abnormal glucose Hypothyroidism (acquired) ([facility]) Unspecified hypothyroidism Mixed hyperlipidemia ([facility]) Mixed hyperlipidemia Encounter for well woman exam with routine gynecological exam- Primary Hypothyroidism (acquired) ([facility]) Unspecified hypothyroidism Vaginal discharge Leukorrhea, not specified as infective Pelvic pain Primary hypertension ([facility])- Primary Unspecified essential hypertension Pelvic pain Gastroesophageal reflux disease, unspecified whether esophagitis present Obesity (BMI 30-39.9) Vitamin D deficiency Class 1 obesity due to excess calories without serious comorbidity with body mass index (BMI) of 30.0 to 30.9 in adult documented in this encounter [facility] HealthcareEvaluation note* Diagnosis Gastroesophageal reflux disease, unspecified whether esophagitis present- Primary Age related osteoporosis, unspecified pathological fracture presence ([facility]) Vitamin D deficiency Pre-diabetes Other abnormal glucose Hypothyroidism (acquired) ([facility]) Unspecified hypothyroidism Mixed hyperlipidemia ([facility]) Mixed hyperlipidemia Encounter for screening mammogram for [...] related osteoporosis, unspecified pathological fracture presence ([facility]) Hyperlipidemia, unspecified ([facility]) Pre-diabetes Other abnormal glucose Obesity (BMI 30-39.9) Hypothyroidism (acquired) ([facility]) Unspecified hypothyroidism Chronic osteoarthritis Osteoarthrosis, unspecified whether generalized or localized, unspecified site Elevated blood pressure reading Elevated blood pressure reading without diagnosis of hypertension Primary hypertension ([facility])- Primary Unspecified essential hypertension Obesity (BMI 30-39.9) LORI (generalized anxiety disorder) ([facility]) Generalized anxiety disorder Primary hypertension ([facility])- Primary Unspecified essential hypertension Gastroesophageal reflux disease, unspecified whether esophagitis present Vitamin D deficiency Pre-diabetes Other abnormal glucose Hypothyroidism (acquired) ([facility]) Unspecified hypothyroidism Mixed hyperlipidemia ([facility]) Mixed hyperlipidemia Encounter for well woman exam with routine gynecological exam- Primary Hypothyroidism (acquired) ([facility]) Unspecified hypothyroidism Vaginal discharge Leukorrhea, not specified as infective Pelvic pain Primary hypertension ([facility])- Primary Unspecified essential hypertension Pelvic pain Gastroesophageal reflux disease, unspecified whether esophagitis present Obesity (BMI 30-39.9) Vitamin D deficiency Class 1 obesity due to excess calories without serious comorbidity with body mass index (BMI) of 30.0 to 30.9 in adult Hyperglycemia- Primary Other abnormal glucose documented in this encounter [facility] HealthcareEvaluation note* Diagnosis Gastroesophageal reflux disease, unspecified whether esophagitis present- Primary Age related osteoporosis, unspecified pathological fracture presence ([facility]) Vitamin D deficiency Pre-diabetes Other abnormal glucose Hypothyroidism (acquired) ([facility]) Unspecified hypothyroidism Mixed hyperlipidemia ([facility]) Mixed hyperlipidemia Encounter for screening mammogram for [...] related osteoporosis, unspecified pathological fracture presence ([facility]) Hyperlipidemia, unspecified ([facility]) Pre-diabetes Other abnormal glucose Obesity (BMI 30-39.9) Hypothyroidism (acquired) ([facility]) Unspecified hypothyroidism Chronic osteoarthritis Osteoarthrosis, unspecified whether generalized or localized, unspecified site Elevated blood pressure reading Elevated blood pressure reading without diagnosis of hypertension Primary hypertension ([facility])- Primary Unspecified essential hypertension Obesity (BMI 30-39.9) LORI (generalized anxiety disorder) ([facility]) Generalized anxiety disorder Primary hypertension ([facility])- Primary Unspecified essential hypertension Gastroesophageal reflux disease, unspecified whether esophagitis present Vitamin D deficiency Pre-diabetes Other abnormal glucose Hypothyroidism (acquired) ([facility]) Unspecified hypothyroidism Mixed hyperlipidemia ([facility]) Mixed hyperlipidemia Encounter for well woman exam with routine gynecological exam- Primary Hypothyroidism (acquired) ([facility]) Unspecified hypothyroidism Vaginal discharge Leukorrhea, not specified as infective Pelvic pain Primary hypertension ([facility])- Primary Unspecified essential hypertension Pelvic pain Gastroesophageal reflux disease, unspecified whether esophagitis present Obesity (BMI 30-39.9) Vitamin D deficiency Class 1 obesity due to excess calories without serious comorbidity with body mass index (BMI) of 30.0 to 30.9 in adult Allergic rhinitis, unspecified seasonality, unspecified trigger- Primary Acute bronchitis, unspecified Age related osteoporosis, unspecified pathological fracture presence ([facility]/HCC) documented in this encounter [facility] HealthcareEvaluation note* Diagnosis Age related osteoporosis, unspecified pathological fracture presence ([facility]/HCC) documented in this encounter [facility] HealthcareEvaluation note* Diagnosis Primary hypertension ([facility]/HCC)- Primary Unspecified essential hypertension Gastroesophageal reflux disease, unspecified whether esophagitis present Vitamin D deficiency Pre-diabetes Other abnormal glucose Hypothyroidism (acquired) ([facility]) Unspecified hypothyroidism Mixed hyperlipidemia ([facility]) Mixed hyperlipidemia documented in this encounter [facility] HealthcareEvaluation note* Diagnosis Gastroesophageal reflux disease, unspecified whether esophagitis present- Primary Age related osteoporosis, unspecified pathological fracture presence ([facility]) Vitamin D deficiency Pre-diabetes Other abnormal glucose Hypothyroidism (acquired) ([facility]) Unspecified hypothyroidism Mixed hyperlipidemia ([facility]) Mixed hyperlipidemia Encounter for screening mammogram for [...] related osteoporosis, unspecified pathological fracture presence ([facility]HCC) Hyperlipidemia, unspecified ([facility] [facility] Pre-diabetes Other abnormal glucose Obesity (BMI 30-39.9) Hypothyroidism (acquired) ([facility]) Unspecified hypothyroidism Chronic osteoarthritis Osteoarthrosis, unspecified whether generalized or localized, unspecified site Elevated blood pressure reading Elevated blood pressure reading without diagnosis of hypertension Primary hypertension ([facility])- Primary Unspecified essential hypertension Obesity (BMI 30-39.9) LORI (generalized anxiety disorder) ([facility]) Generalized anxiety disorder Primary hypertension ([facility] Primary Unspecified essential hypertension Gastroesophageal reflux disease, unspecified whether esophagitis present Vitamin D deficiency Pre-diabetes Other abnormal glucose Hypothyroidism (acquired) ([facility]) Unspecified hypothyroidism Mixed hyperlipidemia ([facility]) Mixed hyperlipidemia Encounter for well woman exam with routine gynecological exam- Primary Hypothyroidism (acquired) ([facility]) Unspecified hypothyroidism Vaginal discharge Leukorrhea, not specified as infective Pelvic pain Primary hypertension ([facility])- Primary Unspecified essential hypertension Pelvic pain Gastroesophageal reflux disease, unspecified whether esophagitis present Obesity (BMI 30-39.9) Vitamin D deficiency Class 1 obesity due to excess calories without serious comorbidity with body mass index (BMI) of 30.0 to 30.9 in adult Hypothyroidism (acquired) ([facility])- Primary Unspecified hypothyroidism documented in this encounter [facility] HealthcareEvaluation note* Diagnosis Gastroesophageal reflux disease, unspecified whether esophagitis present- Primary Age related osteoporosis, unspecified pathological fracture presence ([facility]) Vitamin D deficiency Pre-diabetes Other abnormal glucose Hypothyroidism (acquired) ([facility]) Unspecified hypothyroidism Mixed hyperlipidemia ([facility]) Mixed hyperlipidemia Encounter for screening mammogram for [...] related osteoporosis, unspecified pathological fracture presence ([facility]) Hyperlipidemia, unspecified ([facility]) Pre-diabetes Other abnormal glucose Obesity (BMI 30-39.9) Hypothyroidism (acquired) ([facility]) Unspecified hypothyroidism Chronic osteoarthritis Osteoarthrosis, unspecified whether generalized or localized, unspecified site Elevated blood pressure reading Elevated blood pressure reading without diagnosis of hypertension Primary hypertension ([facility])- Primary Unspecified essential hypertension Obesity (BMI 30-39.9) LORI (generalized anxiety disorder) ([facility]) Generalized anxiety disorder Primary hypertension ([facility])- Primary Unspecified essential hypertension Gastroesophageal reflux disease, unspecified whether esophagitis present Vitamin D deficiency Pre-diabetes Other abnormal glucose Hypothyroidism (acquired) ([facility]) Unspecified hypothyroidism Mixed hyperlipidemia ([facility]) Mixed hyperlipidemia Encounter for well woman exam with routine gynecological exam- Primary Hypothyroidism (acquired) ([facility]) Unspecified hypothyroidism Vaginal discharge Leukorrhea, not specified as infective Pelvic pain Primary hypertension ([facility])- Primary Unspecified essential hypertension Pelvic pain Gastroesophageal reflux disease, unspecified whether esophagitis present Obesity (BMI 30-39.9) Vitamin D deficiency Class 1 obesity due to excess calories without serious comorbidity with body mass index (BMI) of 30.0 to 30.9 in adult Primary hypertension ([facility])- Primary Unspecified essential hypertension Class 1 obesity due to excess calories without serious comorbidity with body mass index (BMI) of 30.0 to 30.9 in adult Hypothyroidism (acquired) ([facility]) Unspecified hypothyroidism LORI (generalized anxiety disorder) ([facility]) Generalized anxiety disorder documented in this encounter [facility]* Diagnosis Presbyopia- Primary Myopia of both eyes Regular astigmatism of both eyes Age-related nuclear cataract of both eyes Dry eye syndrome of bilateral lacrimal glands [facility] Diagnosis Gastroesophageal reflux disease, unspecified whether esophagitis present- Primary Age related osteoporosis, unspecified pathological fracture presence ([facility]) Vitamin D deficiency Pre-diabetes Other abnormal glucose Hypothyroidism (acquired) ([facility]) Unspecified hypothyroidism Mixed hyperlipidemia ([facility]) Mixed hyperlipidemia Encounter for screening mammogram for [...] related osteoporosis, unspecified pathological fracture presence ([facility]) Hyperlipidemia, unspecified ([facility]) Pre-diabetes Other abnormal glucose Obesity (BMI 30-39.9) Hypothyroidism (acquired) ([facility]) Unspecified hypothyroidism Chronic osteoarthritis Osteoarthrosis, unspecified whether generalized or localized, unspecified site Elevated blood pressure reading Elevated blood pressure reading without diagnosis of hypertension Primary hypertension ([facility])- Primary Unspecified essential hypertension Obesity (BMI 30-39.9) LORI (generalized anxiety disorder) ([facility]) Generalized anxiety disorder Primary hypertension ([facility])- Primary Unspecified essential hypertension Gastroesophageal reflux disease, unspecified whether esophagitis present Vitamin D deficiency Pre-diabetes Other abnormal glucose Hypothyroidism (acquired) ([facility]) Unspecified hypothyroidism Mixed hyperlipidemia ([facility]) Mixed hyperlipidemia Encounter for well woman exam with routine gynecological exam- Primary Hypothyroidism (acquired) ([facility]) Unspecified hypothyroidism Vaginal discharge Leukorrhea, not specified as infective Pelvic pain Primary hypertension ([facility])- Primary Unspecified essential hypertension Pelvic pain Gastroesophageal reflux disease, unspecified whether esophagitis present Obesity (BMI 30-39.9) Vitamin D deficiency Class 1 obesity due to excess calories without serious comorbidity with body mass index (BMI) of 30.0 to 30.9 in adult LORI (generalized anxiety disorder) ([facility])- Primary Generalized anxiety disorder Primary hypertension ([facility]) Unspecified essential hypertension Class 1 obesity due to excess calories without serious comorbidity with body mass index (BMI) of 30.0 to 30.9 in adult Hypothyroidism (acquired) ([facility]) Unspecified hypothyroidism Age related osteoporosis, unspecified pathological fracture presence ([facility]) Hyperlipidemia, unspecified ([facility]) documented in this encounter [facility] HealthcareEvaluation note* Diagnosis Gastroesophageal reflux disease, unspecified whether esophagitis present- Primary Age related osteoporosis, unspecified pathological fracture presence ([facility]) Vitamin D deficiency Pre-diabetes Other abnormal glucose Hypothyroidism (acquired) ([facility]) Unspecified hypothyroidism Mixed hyperlipidemia ([facility]) Mixed hyperlipidemia Encounter for screening mammogram for [...] related osteoporosis, unspecified pathological fracture presence ([facility]) Hyperlipidemia, unspecified ([facility]) Pre-diabetes Other abnormal glucose Obesity (BMI 30-39.9) Hypothyroidism (acquired) ([facility]) Unspecified hypothyroidism Chronic osteoarthritis Osteoarthrosis, unspecified whether generalized or localized, unspecified site Elevated blood pressure reading Elevated blood pressure reading without diagnosis of hypertension Primary hypertension ([facility])- Primary Unspecified essential hypertension Obesity (BMI 30-39.9) LORI (generalized anxiety disorder) ([facility]) Generalized anxiety disorder Primary hypertension ([facility])- Primary Unspecified essential hypertension Gastroesophageal reflux disease, unspecified whether esophagitis present Vitamin D deficiency Pre-diabetes Other abnormal glucose Hypothyroidism (acquired) ([facility]) Unspecified hypothyroidism Mixed hyperlipidemia ([facility]) Mixed hyperlipidemia Encounter for well woman exam with routine gynecological exam- Primary Hypothyroidism (acquired) ([facility]) Unspecified hypothyroidism Vaginal discharge Leukorrhea, not specified as infective Pelvic pain Primary hypertension ([facility])- Primary Unspecified essential hypertension Pelvic pain Gastroesophageal reflux disease, unspecified whether esophagitis present Obesity (BMI 30-39.9) Vitamin D deficiency Class 1 obesity due to excess calories without serious comorbidity with body mass index (BMI) of 30.0 to 30.9 in adult LORI (generalized anxiety disorder) ([facility])- Primary Generalized anxiety disorder Primary hypertension ([facility]) Unspecified essential hypertension Class 1 obesity due to excess calories without serious comorbidity with body mass index (BMI) of 30.0 to 30.9 in adult Hypothyroidism (acquired) ([facility]) Unspecified hypothyroidism Primary hypertension ([facility])- Primary Unspecified essential hypertension Hypothyroidism (acquired) ([facility]) Unspecified hypothyroidism Allergic rhinitis, unspecified seasonality, unspecified trigger documented in this encounter [facility]* Diagnosis Gastroesophageal reflux disease, unspecified whether esophagitis present- Primary Age related osteoporosis, unspecified pathological fracture presence ([facility]) Vitamin D deficiency Pre-diabetes Other abnormal glucose Hypothyroidism (acquired) ([facility]) Unspecified hypothyroidism Mixed hyperlipidemia ([facility]) Mixed hyperlipidemia Encounter for screening mammogram for [...] related osteoporosis, unspecified pathological fracture presence ([facility]) Hyperlipidemia, unspecified ([facility]) Pre-diabetes Other abnormal glucose Obesity (BMI 30-39.9) Hypothyroidism (acquired) ([facility]) Unspecified hypothyroidism Chronic osteoarthritis Osteoarthrosis, unspecified whether generalized or localized, unspecified site Elevated blood pressure reading Elevated blood pressure reading without diagnosis of hypertension Primary hypertension ([facility])- Primary Unspecified essential hypertension Obesity (BMI 30-39.9) LORI (generalized anxiety disorder) ([facility]) Generalized anxiety disorder Primary hypertension ([facility])- Primary Unspecified essential hypertension Gastroesophageal reflux disease, unspecified whether esophagitis present Vitamin D deficiency Pre-diabetes Other abnormal glucose Hypothyroidism (acquired) ([facility]) Unspecified hypothyroidism Mixed hyperlipidemia ([facility]) Mixed hyperlipidemia Encounter for well woman exam with routine gynecological exam- Primary Hypothyroidism (acquired) ([facility]) Unspecified hypothyroidism Vaginal discharge Leukorrhea, not specified as infective Pelvic pain Primary hypertension ([facility])- Primary Unspecified essential hypertension Pelvic pain Gastroesophageal reflux disease, unspecified whether esophagitis present Obesity (BMI 30-39.9) Vitamin D deficiency Class 1 obesity due to excess calories without serious comorbidity with body mass index (BMI) of 30.0 to 30.9 in adult LORI (generalized anxiety disorder) ([facility])- Primary Generalized anxiety disorder Primary hypertension ([facility]) Unspecified essential hypertension Class 1 obesity due to excess calories without serious comorbidity with body mass index (BMI) of 30.0 to 30.9 in adult Hypothyroidism (acquired) ([facility]) Unspecified hypothyroidism Primary hypertension ([facility])- Primary Unspecified essential hypertension Hypothyroidism (acquired) ([facility]) Unspecified hypothyroidism Allergic rhinitis, unspecified seasonality, unspecified trigger Hypothyroidism (acquired) ([facility]) Unspecified hypothyroidism documented in this encounter [facility]* Diagnosis Age-related nuclear cataract of both eyes- Primary Posterior vitreous detachment, bilateral Infection of eyelash follicle of right eye [facility] Diagnosis Gastroesophageal reflux disease, unspecified whether esophagitis present- Primary Age related osteoporosis, unspecified pathological fracture presence Vitamin D deficiency Pre-diabetes Other abnormal glucose Hypothyroidism (acquired) Unspecified hypothyroidism Mixed hyperlipidemia Mixed hyperlipidemia Encounter for screening mammogram for [...] Age related osteoporosis, unspecified pathological fracture presence Hyperlipidemia, unspecified Pre-diabetes Other abnormal glucose Obesity (BMI 30-39.9) Hypothyroidism (acquired) Unspecified hypothyroidism Chronic osteoarthritis Osteoarthrosis, unspecified whether generalized or localized, unspecified site Elevated blood pressure reading Elevated blood pressure reading without diagnosis of hypertension Primary hypertension- Primary Unspecified essential hypertension Obesity (BMI 30-39.9) LORI (generalized anxiety disorder) Generalized anxiety disorder Primary hypertension- Primary Unspecified essential hypertension Gastroesophageal reflux disease, unspecified whether esophagitis present Vitamin D deficiency Pre-diabetes Other abnormal glucose Hypothyroidism (acquired) Unspecified hypothyroidism Mixed hyperlipidemia Mixed hyperlipidemia Encounter for well woman exam with routine gynecological exam- Primary Hypothyroidism (acquired) Unspecified hypothyroidism Vaginal discharge Leukorrhea, not specified as infective Pelvic pain Primary hypertension- Primary Unspecified essential hypertension Pelvic pain Gastroesophageal reflux disease, unspecified whether esophagitis present Obesity (BMI 30-39.9) Vitamin D deficiency Class 1 obesity due to excess calories without serious comorbidity with body mass index (BMI) of 30.0 to 30.9 in adult LORI (generalized anxiety disorder)- Primary Generalized anxiety disorder Primary hypertension Unspecified essential hypertension Class 1 obesity due to excess calories without serious comorbidity with body mass index (BMI) of 30.0 to 30.9 in adult Hypothyroidism (acquired) Unspecified hypothyroidism Primary hypertension- Primary Unspecified essential hypertension Hypothyroidism (acquired) Unspecified hypothyroidism Allergic rhinitis, unspecified seasonality, unspecified trigger Encounter for subsequent annual wellness visit (AWV) [...] Dermatophytosis of nail documented in this encounter [facility]* Diagnosis Gastroesophageal reflux disease, unspecified whether esophagitis present- Primary Age related osteoporosis, unspecified pathological fracture presence Vitamin D deficiency Pre-diabetes Other abnormal glucose Hypothyroidism (acquired) Unspecified hypothyroidism Mixed hyperlipidemia Mixed hyperlipidemia Encounter for screening mammogram for [...] Age related osteoporosis, unspecified pathological fracture presence Hyperlipidemia, unspecified Pre-diabetes Other abnormal glucose Obesity (BMI 30-39.9) Hypothyroidism (acquired) Unspecified hypothyroidism Chronic osteoarthritis Osteoarthrosis, unspecified whether generalized or localized, unspecified site Elevated blood pressure reading Elevated blood pressure reading without diagnosis of hypertension Primary hypertension- Primary Unspecified essential hypertension Obesity (BMI 30-39.9) LORI (generalized anxiety disorder) Generalized anxiety disorder Primary hypertension- Primary Unspecified essential hypertension Gastroesophageal reflux disease, unspecified whether esophagitis present Vitamin D deficiency Pre-diabetes Other abnormal glucose Hypothyroidism (acquired) Unspecified hypothyroidism Mixed hyperlipidemia Mixed hyperlipidemia Encounter for well woman exam with routine gynecological exam- Primary Hypothyroidism (acquired) Unspecified hypothyroidism Vaginal discharge Leukorrhea, not specified as infective Pelvic pain Primary hypertension- Primary Unspecified essential hypertension Pelvic pain Gastroesophageal reflux disease, unspecified whether esophagitis present Obesity (BMI 30-39.9) Vitamin D deficiency Class 1 obesity due to excess calories without serious comorbidity with body mass index (BMI) of 30.0 to 30.9 in adult LORI (generalized anxiety disorder)- Primary Generalized anxiety disorder Primary hypertension Unspecified essential hypertension Class 1 obesity due to excess calories without serious comorbidity with body mass index (BMI) of 30.0 to 30.9 in adult Hypothyroidism (acquired) Unspecified hypothyroidism Primary hypertension- Primary Unspecified essential hypertension Hypothyroidism (acquired) Unspecified hypothyroidism Allergic rhinitis, unspecified seasonality, unspecified trigger Encounter for subsequent annual wellness visit (AWV) [...] Generalized anxiety disorder Onychomycosis Dermatophytosis of nail Gastroesophageal reflux disease, unspecified whether esophagitis present- Primary Elevated liver function tests Other abnormal blood chemistry Diverticulosis of large intestine without hemorrhage Black stools Nonspecific abnormal finding in stool contents documented in this encounter [facility] HealthcareInstructions* Attachments The following attachments cannot be sent through Care Everywhere. * Dry eye (Icelandic) * Cataracts (Icelandic) * Presbyopia and refractive errors ([place]ic) [facility]* Attachments The following attachments cannot be sent through Care Everywhere. * Cataracts (Icelandic) * Floaters in the Eye ([place]ic) [facility] SystemReason for referral (narrative)* Consultation (Routine) - Pending Review Specialty Diagnoses / Procedures Referred By Lisa morgan Referred To Contact Orthopaedic Surgery Diagnoses Chronic left shoulder pain Pamela Moore, MARIKA [address] [place] [address] Ziggy De La Fuente MD [address] [place] [address] Referral ID Status Reason Start Date Expiration Date Visits Requested Visits Authorized [id number] Pending Review Specialty Services Required 11/05/2023 05/03/2024 [...] - Pain in ri ght shoulder 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 DATE CREATED AUTHOR AUTHOR'S ORGANIZ ATION 02/28/2023 [facility] DATE CREATED AUTHOR AUTHOR'S ORGANIZ ATION 01/22/2024 [facility] DATE CREATED AUTHOR AUTHOR'S ORGANIZ ATION 05/01/2024 [facility] DATE CREATED AUTHOR AUTHOR'S ORGANIZ ATION 04/11/2025 [facility] DATE CREATED AUTHOR AUTHOR'S ORGANIZ ATION 04/14/2025 [facility] EPIC Care Teams (unrecognized [...] Provider Active St art: April 29, 2024 Multiple Drum Sander Relationship Specialty Start Date End Date Jorge Goncalves MD [address] [place] [id number] PCP - General Family Medicine 11/05/23 Multiple Drum Sander Relationship Specialty Start Date End Date Jorge Goncalves MD [address] [place] [id number] PCP - General Family Medicine 11/05/23 Team [...] Provider Active St art: December 11, 2023 Multiple Drum Sander Relationship Specialty Start Date End Date Jorge Goncalves MD [address] [place] [id number] PCP - General Family Medicine 11/05/23 Pamela Moore NP [address] [place] [id number] PCP - Ankit MURRY 04/22/24 Multiple Drum Sander Relationship Specialty Start Date End Date Jorge Goncalves MD [address] [place] [id number] PCP - General Family Medicine 11/05/23 Pmaela Moore NP [address] [place] [id number] PCP Opal Pham MA 04/22/24 Multiple Drum Sander Relationship Specialty Start Date End Date Jorge Goncalves MD [address] [place] [id number] PCP - General Family Medicine 11/05/23 Pamela Moore NP [address] [place] [address] PCP - Ankit MURRY 04/22/24 Multiple Drum Sander Relationship Specialty Start Date End Date Pamela Moore NP [address] [place] [address] PCP - Ankit MURRY 04/22/24 Unallocated, Nehemias Avina MD [facility] [place] [address] PCP - General Family Medicine 07/07/24 Multiple Drum Sander Relationship Specialty Start Date End Date Pamela Moore NP [address] [place] [address] PCP Opal Pham MA 04/22/24 Unallocated, Nehemias Avina MD [address] [facility] [place] [address] PCP - General Family Medicine 07/07/24 Multiple Drum Sander Relationship Specialty Start Date End Date Pamela Moore NP [address] [place] [address] PCP - Ankit MURRY 04/22/24 Jorge Goncalves MD [address] [place] [address] PCP - General Family Medicine 07/22/24 Multiple Drum Sander Relationship Specialty Start Date End Date Pamela Moore NP [address] [place] [address] PCP - Ankit MURRY 04/22/24 Jorge Goncalves MD [address] [place] [address] PCP - General Family Medicine 07/22/24 Multiple Drum Sander Relationship Specialty Start Date End Date Pamela Moore NP [address] [place] [address] PCP - Ankit MURRY 04/22/24 Jorge Goncalves MD [address] [place] [address] PCP - General Family Medicine 07/22/24 Multiple Drum Sander Relationship Specialty Start Date End Date Pamela Moore NP [address] [place] [address] PCP - Ankit MURRY 04/22/24 Jorge Goncalves MD [address] [place] [address] PCP - General Family Medicine 07/22/24 Multiple Drum Sander Relationship Specialty Start Date End Date Pamela Moore NP [address] [place] [address] PCP - Ankit MURRY 04/22/24 Jorge Goncalves MD [address] [place] [address] PCP - General Family Medicine 07/22/24 Multiple Drum Sander Relationship Specialty Start Date End Date Pamela Moore NP [address] [place] [address] PCP - Ankit MURRY 04/22/24 Jorge Goncalves MD [address] [place] [address] PCP - General Family Medicine 07/22/24 Multiple Drum Sander Relationship Specialty Start Date End Date Jorge Goncalves MD [address] [place] [address] PCP - General Family Medicine 11/05/23 Pamela Moore NP [address] [place] [address] PCP - Ankit MURRY 04/22/24 Multiple Drum Sander Relationship Specialty Start Date End Date Jorge Goncalves MD [address] [place] [address] PCP - General Family Medicine 11/05/23 Pamela Moore NP [address] [place] [address] PCP Opal Pham MA 04/22/24 Multiple Drum Sander Relationship Specialty Start Date End Date Jorge Goncalves MD [address] [place] [address] PCP - General Family Medicine 11/05/23 Pamela Moore NP [address] [place] [address] PCP - Ankit MURRY 04/22/24 Multiple Drum Sander Relationship Specialty Start Date End Date Pamela Moore NP [address] [place] [address] PCP Opal Pham MA 04/22/24 Jorge Goncalves MD [address] [place] [address] PCP - General Family Medicine 07/22/24 Multiple Drum Sander Relationship Specialty Start Date End Date Pamela Moore NP [address] [place] [address] PCP Opal Pham MA 04/22/24 Jorge Goncalves MD [address] [place] [address] PCP - General Family Medicine 07/22/24 Multiple Drum Sander Relationship Specialty Start Date End Date Pamela Moore NP [address] [place] [address] PCP Opal Pham MA 04/22/24 Jorge Goncalves MD [address] [place] [address] PCP - General Family Medicine 07/22/24 Multiple Drum Sander Relationship Specialty Start Date End Date Pamela Moore, RADAR SCIENTIST-RECEIVER STOCKER [address] [place] [address] PCP - General Nurse Practitioner 05/10/21 Multiple Drum Sander Relationship Specialty Start Date End Date Pamela Moore NP [address] [place] [address] PCP - Ankit MURRY 04/22/24 Jorge Goncalves MD [address] [place] [address] PCP - General Family Medicine 07/22/24 Multiple Drum Sander Relationship Specialty Start Date End Date Pamela Moore NP [address] [place] [address] PCP - Ankit MURRY 04/22/24 Jorge Goncalves MD [address] [place] [address] PCP - General Family Medicine 07/22/24 Multiple Drum Sander Relationship Specialty Start Date End Date Pamela Moore NP [address] [place] [address] PCP - Ankit MURRY 04/22/24 Jorge Goncalves MD [address] [place] [address] PCP - General Family Medicine 07/22/24 Multiple Drum Sander Relationship Specialty Start Date End Date Pamela Moore NP [address] [place] [address] PCP - Ankit MURRY 04/22/24 Jorge Goncalves MD [address] [place] [address] PCP - General Family Medicine 07/22/24 Multiple Drum Sander Relationship Specialty Start Date End Date Jorge Goncalves MD [address] [place] [address] PCP - General Family Medicine 07/22/24 Multiple Drum Sander Relationship Specialty Start Date End Date Pamela Moore, RADAR SCIENTIST-RECEIVER STOCKER PCP - General Nurse Practitioner 05/10/21 Multiple Drum Sander Relationship Specialty Start Date End Date Pamela Moore NP [address] [place] [address] PCP - Ankit MURRY 04/22/24 Jorge Goncalves MD [address] [place] [address] PCP - General Family Medicine 07/22/24 Multiple Drum Sander Relationship Specialty Start Date End Date Pamela Moore NP [address] [place] [address] PCP - Ankit MURRY 04/22/24 Jorge Goncalves MD [address] [place] [address] PCP - General Family Medicine 07/22/24 Multiple Drum Sander Relationship Specialty Start Date End Date TavoPamela isbellMARIKA [address] [place] [address] PCP - Ankit MURRY 04/22/24 Jorge Goncalves MD [address] [place] [address] PCP - General Family Medicine 07/22/24 Goals (unrecognized section and content) Goals may be documented in a n alternate sectionGoals may be documented in an alternate sectionGoals may be documented in an alternate sectionGoals may be documented in an alternate sectionNot on filedocumented as of this encounterNot on filedocumented as of this encounter Reason for Visit (unrecogniz ed section and content) Reason Onset Date Comments Med Refill 06/24/2024 Reason Comments Hypertension Reason Comments Med Refill Reason Comments Hypertension Anxiety Reason Comments Eye Exam Reason Comments LORI Reason Comments Blurred Vision Reason Comments Medicare Annual Wellness Visit Initial FOR RECORDS PERTAINING TO PATIENTS WHO ARE [...] BE BASED ON THE PRIMARY CLINICAL RECORDS. [employer] provides no warranty or guarantee of the accuracy or completeness of information in this document.
--- OUTSIDE RECORDS SUMMARY | 2025-04-23 11:18 | XMS_ITS | Encounter Summary ---
Author Organization [facility] Address [address] [place] [address] Care Team Providers Care Rn Telemetry Name Role Phone Pamela Moore NP Unavailable [phone] Jorge French MD Primary Care Provider [phone] Encounter Details Date Type Department Care Team ([facility] st Contact Info) Description 04/13/2025 Abstract [facility] [address] [facility] [address] [place] [address] Chaz Todd DPM [address] [facility] [address] [place] [address] Social History Tobacco Use Types Packs/Day Years [...] on file documented as of this encounter Functional Status * Over the past 2 weeks, how often have you been bothered by any of the following problems? Question Answer Date of Assessment Author Little interest or pleasure in doing things Not at all 04/13/2025 10:46 AM EDT JENAE AMAYA Feeling down, depressed, or hopeless Not at all 04/13/2025 10:46 AM JENAE MANZO Patient Health Questionnaire -2 Score 0 04/13/2025 10:46 AM JENAE MANZO * Question Answer Date of Assessment Author [...] Health Questionnaire-9 Score 2 04/13/2025 10:46 AM EDCUATE TOMLINSON documented as of this encounter Plan of Treatment Upcoming Encounters Date Type Department Care Team (Late st Contact Info) Description 04/28/2025 3:50 PM EDT Office Visit [facility] [address] [facility] [address] [place] [address] Chaz Todd DPM [address] [facility] [address] [place] [address] 07/14/2025 10:30 AM EDT Office Visit [facility] [address] [place] [address] Pamela Moore NP [address] [place] [address] 04/20/2026 10:00 AM EDT Office Visit [facility] [address] [place] [address] Pamela Moore NP [address] [place] [address] documented as of this encounter Visit Diagnoses Not on filedocumented in this encounter Additional Health Concerns Assessment Noted Time PHQ-9 Depression Total Score: 2 04/13/20 25 10:46 AM EDT documented as of this encounter Care Teams Rn Telemetry Relationship Specialty Start Date End Date Pamela Moore NP [address] [place] [address] PCP - Ankit MURRY 04/22/24 Jorge French MD [address] [place] [address] PCP - General Family Medicine 07/22/24 documented as of this encounter
--- OUTSIDE RECORDS SUMMARY | 2025-04-23 11:18 | XMS_ITS | Encounter Summary ---
Author Organization [facility] Address [address] [place] [address] Care Team Providers Care Serials Librarian Name Role Phone Pamela Moore EMBEDDED SOFTWARE MANAGER Unavailable [phone] Jorge French MD Primary Care Provider [phone] Encounter Details Date Type Department Care Team (Late st Contact Info) Description 04/13/2025 Bamboo flowsheet [facility] [address] [place] [address] Pamela Moore NP [address] [place] [address] Social History Tobacco Use Types Packs/Day Years [...] CI PODIAT[facility] [address] [place] [address] [place] [address] Chaz [place], DPNelson [address] [address] 07/14/2025 10:30 AM EDT Office Visit [facility] [address] [place] [address] Pamela Moore, MARIKA [address] [place] [address] 04/20/2026 10:00 AM EDT Office Visit [facility] [address] [place] [address] Pamela Moore, MARIKA [address] [place] [address] documented as of this encounter Visit Diagnoses Not on filedocumented in this encounter Additional Health Concerns Assessment Noted Time PHQ-9 Depression Total Score: 2 04/13/20 25 10:46 AM EDT documented as of this encounter Care Teams Serials Librarian Relationship Specialty Start Date End Date Pamela Moore NP [address] [place] [address] PCP - Ankit MURRY 04/22/24 Jorge French MD [address] [place] [address] PCP - General Family Medicine 07/22/24 documented as of this encounter
--- NOTE | 2025-04-23 11:32 | ED_ITS ---
HPI HPI - General Adult General Chief complaint: Abdominal Pain Stated complaint: BLACK STOOLS Time Seen by Provider: 04/23/25 11:16 Source: patient Mode of arrival: walk-in Limitations: no limitations History of Present Illness HPI narrative: 79-year-old female presents for dark stools. It seems that they have turned black. She saw her family doctor in the office and she did not have any blood work or CAT scan done and she was diagnosed with diverticulitis and was placed on antibiotics. Her stools were dark brown and now she states they are dark black. She does not take iron pills. No fever or vomiting. She has not seen any gross blood. Related Data Allergies Allergy/AdvReac Type Severity Reaction Status Date / Time ampicillin AdvReac Intermediate Verified 09/10/23 13:23 Opioid HPI Opioid Management Most Recent Opioid Data: Last Pain Scale 6 Today, 11:14 Review of Systems ROS Narrative A ten point review of systems is negative except as noted above. PFSH PFSH Social History Smoking status: Never smoker Little interest or pleasure in doing things: not at all Feeling down, depressed, or hopeless: not at all Exam Narrative Exam Narrative: Nurses note and vital signs reviewed and patient is not hypoxic. General: The patient appears well and in no apparent distress. Patient is resting comfortably on cart. Skin: Warm, dry, no pallor noted. There is no rash noted. Head: Normocephalic, atraumatic Eye: Normal conjunctiva, no drainage Ears, Nose, Mouth, and Throat: oral mucosa is moist. Nares patent. Cardiovascular: Regular Rate and Rhythm Respiratory: Patient is in no distress, no accessory muscle use, lungs are clear to auscultation, no wheezing, rales or rhonchi Back: non-tender GI: Soft without masses. Minimal tenderness present Musculoskeletal: The patient has no evidence of calf tenderness, no pitting edema, symmetrical pulses noted bilaterally Neurological: A&O, normal speech Psychiatric: Cooperative Constitutional Vital Signs, click to edit/add: Last Vital Signs Temp 98.0 F 04/23/25 11:14 Pulse 74 04/23/25 11:14 Resp 18 04/23/25 11:14 BP 156/40 H 04/23/25 11:14 Pulse Ox 97 04/23/25 11:14 O2 Del Method Room Air 04/23/25 11:14 Course Vital Signs Vital signs: Vital Signs Temperature 98.0 F 04/23/25 11:14 Pulse Rate 74 04/23/25 11:14 Respiratory Rate 18 04/23/25 11:14 Blood Pressure 156/40 H 04/23/25 11:14 Pulse Oximetry 97 04/23/25 11:14 Oxygen Delivery Method Room Air 04/23/25 11:14 Temperature 98.0 F 04/23/25 11:14 Pulse Rate 74 04/23/25 11:14 Respiratory Rate 18 04/23/25 11:14 Blood Pressure 156/40 H 04/23/25 11:14 Pulse Oximetry 97 04/23/25 11:14 Oxygen Delivery Method Room Air 04/23/25 11:14 Medical Decision Making MDM Narrative Medical decision making narrative: Heme-negative. The patient was reassured and discharged home. She will continue her antibiotics. Treatment diagnosis and follow-up were discussed with the patient. Differential Diagnosis Differential Diagnosis: Colitis, GI bleed, medication side effect Lab Data Lab results reviewed: Yes I reviewed the patient's lab results Labs: Lab Results 04/23/25 Range/Units 11:25 Stool Occult Blood Negative Discharge Plan Discharge Chief Complaint: Abdominal Pain Clinical Impression: No problem, feared complaint unfounded Patient Disposition: Home, Self-Care Time of Disposition Decision: 12:00 Condition: Good Mode of Transportation: Private Vehicle Print Language: Liberian Instructions: Diverticulitis (ED) Referrals: Pamela Moore NP [Primary Care Provider, Family Practice] - 1 week
== END 2025-04-23 12:04 | disposition home or self-care (01) ==
PROVIDERS: Emergency Provider Emergency Medicine; PCP Nurse Practitioner
DX: Z71.1 Person with feared health complaint in whom no diagnosis is made (principal)
CPT/HCPCS: 99283; G0328

== ENCOUNTER 2025-05-03 09:22 | Outpatient (OUT) | payer MEDICARE, SELFPAY ==
[2025-05-03 09:46] LABS: Hematocrit 38.2 % (36.0-48.0); Hemoglobin 12.4 g/dL (12.0-16.0); Immature Granulocytes Abs Auto 0.01 10^3/uL (0.00-0.03); Immature Granulocytes Pct Auto 0.1 % (0.0-0.5); Lymphocytes Absolute Auto 2.8 10^3/uL (1.2-3.8); Mean Corpuscular HGB Conc 32.5 g/dL (29.9-35.2); Mean Corpuscular Hemoglobin 27.1 pg (26.7-34.0); Mean Corpuscular Volume 83.4 fL (81.0-99.0); Platelet Count 551 10^3/uL (150-450); Red Blood Count 4.58 10^6/uL (4.20-5.40); White Blood Count 7.7 10^3/uL (4.0-11.0)
[2025-05-03 10:06] LABS: Glucose Urine UA NEGATIVE (NEGATIVE)
[2025-05-03 10:27] LABS: Cast Seen? NONE SEEN #/LPF (NONE SEEN); Crystals Seen? None Seen #/HPF (None Seen)
[2025-05-03 10:37] LABS: Iron 76.0 ug/dL (50.0-170.0)
[2025-05-03 10:46] LABS: Alanine Aminotransferase 63 U/L (14-59); Albumin Globulin Ratio 0.7; Albumin Level 3.7 g/dL (3.4-5.0); Alkaline Phosphatase 91 U/L (46-116); Anion Gap 11.1; Aspartate Amino Transferase 33 U/L (15-37); Blood Urea Nitrogen 13.0 mg/dL (7.0-18.0); Calcium 10.5 mg/dL (8.5-10.1); Carbon Dioxide 28.1 mmol/L (21.0-32.0); Chloride 100 mmol/L (98-107); Estimated GFR (African America >60 (>=60 mL/min/1.73m^2); Estimated GFR (Non-African Ame >60 (>=60 mL/min/1.73m^2); Globulin 5.1 g/dL; Glucose 106 mg/dL (74-106); Potassium 4.2 mmol/L (3.5-5.1); Sodium 135 mmol/L (136-145); Total Protein 8.8 g/dL (6.4-8.2)
== END 2025-05-03 09:23 | disposition home or self-care (01) ==
LOC: LAB 09:22
PROVIDERS: PCP Nurse Practitioner; Visit Provider Nurse Practitioner
DX: K21.9 Gastro-esophageal reflux disease without esophagitis (principal); K57.30 Diverticulosis of large intestine without perforation or abscess without bleeding; K92.1 Melena; R79.89 Other specified abnormal findings of blood chemistry
CPT/HCPCS: 36415; 80053; 81001; 83540; 85025

== ENCOUNTER 2025-05-16 11:06 | Outpatient (OUT) | payer MEDICARE, SELFPAY ==
--- OUTSIDE RECORDS SUMMARY | 2025-05-16 11:21 | XMS_ITS | CCD ---
Author Organization [facility] Care Team Providers Care Director Workers Compensation Name Role Phone AICHHOLZ, APPLICATIONS SYSTEM ANALYST PAMELA Admitting Unavailable AICHHOLZ, APPLICATIONS SYSTEM ANALYST PAMELA Attending Unavailable AICHHOLZ, APPLICATIONS SYSTEM ANALYST PAMELA Primary Care Unavailable AICHHOLZ, APPLICATIONS SYSTEM ANALYST PAMELA Consulting Unavailable AICHHOLZ, APPLICATIONS SYSTEM ANALYST PAMELA Admitting Unavailable AICHHOLZ, APPLICATIONS SYSTEM ANALYST PAMELA Attending Unavailable AICHHOLZ, APPLICATIONS SYSTEM ANALYST PAMELA Primary Care Unavailable AICHHOLZ, APPLICATIONS SYSTEM ANALYST PAMELA Consulting Unavailable AICHHOLZ, APPLICATIONS SYSTEM ANALYST PAMELA Admitting Unavailable AICHHOLZ, APPLICATIONS SYSTEM ANALYST PAMELA Attending Unavailable AICHHOLZ, APPLICATIONS SYSTEM ANALYST PAMELA Primary Care Unavailable AICHHOLZ, APPLICATIONS SYSTEM ANALYST PAMELA Consulting Unavailable AICHHOLZ, APPLICATIONS SYSTEM ANALYST PAMELA Admitting Unavailable AICHHOLZ, APPLICATIONS SYSTEM ANALYST PAMELA Attending Unavailable AICHHOLZ, APPLICATIONS SYSTEM ANALYST PAMELA Primary Care Unavailable AICHHOLZ, APPLICATIONS SYSTEM ANALYST PAMELA Consulting Unavailable AICHHOLZ, APPLICATIONS SYSTEM ANALYST PAMELA Admitting Unavailable AICHHOLZ, APPLICATIONS SYSTEM ANALYST PAMELA Attending Unavailable AICHHOLZ, APPLICATIONS SYSTEM ANALYST PAMELA Primary Care Unavailable AICHHOLZ, APPLICATIONS SYSTEM ANALYST PAMELA Consulting Unavailable AICHHOLZ, APPLICATIONS SYSTEM ANALYST PAMELA Admitting Unavailable AICHHOLZ, APPLICATIONS SYSTEM ANALYST PAMELA Attending Unavailable AICHHOLZ, APPLICATIONS SYSTEM ANALYST PAMELA Primary Care Unavailable AICHHOLZ, APPLICATIONS SYSTEM ANALYST PAMELA Consulting Unavailable AICHHOLZ, APPLICATIONS SYSTEM ANALYST PAMELA Admitting Unavailable AICHHOLZ, APPLICATIONS SYSTEM ANALYST PAMELA Attending Unavailable AICHHOLZ, APPLICATIONS SYSTEM ANALYST PAMELA Primary Care Unavailable AICHHOLZ, APPLICATIONS SYSTEM ANALYST PAMELA Consulting Unavailable JORGE GONCALVES Primary Care Unavailable Tab Ibarra Admitting Unavail Tab Jauregui Attending Unavail Jorge Quijano MD Primary Care Provider MD Jorge Goncalves Primary Care Provider DO Braxton Escalante Attending Provider [phone] PAMELA MOORE Primary Care Unavailable BRAXTON ESCALANTE Referring Unavailable BRAXTON ESCALANTE Referring Unavailable AICTOPHER, PAMELA Mendoza Primary Care Unavailable MD Jorge Goncalves Primary Care Provider DO Braxton Escalante Attending Provider [phone] Braxton Escalante Attending Unavailable Jorge Goncalves Primary Care Unavailable Braxton Escalante Admitting Unavailable Braxton Escalante Attending Unavailable Jorge Goncalves Primary Care Unavailable Braxton Escalante Admitting Unavailable [facility], Pamela Unavailable Unallocated , [place] Provider Primary Care Provi oksana Jorge Goncalves MD Primary Care Provider [facility] [employer]GRIC[employer]URAL ENGINEERING TECHNICIANS-APPLICATIONS SYSTEM ANALYSTPamela Primary Care Provider [facility] [employer]GRIC[employer]INEERING TECHNICIANS-APPLICATIONS SYSTEM ANALYST, Pamela Mendoza Primary Care Provider [place] Attending Unavailabl e OSCAR, PAMELA J Referring Unavailable AICHHOLZ, PAMELA J Primary Care Unavailable AICHHOLZ, PAMELA Attending Unavailable AICHHOLZ, PAMELA Attending Unavailable AICHHOLZ, PAMELA Attending Unavailable CHAZ TODD Attending Unavailable AICHHOLZ, PAMELA Referring Unavailable AICHHOLZ, PAMELA Attending Unavailable AICHHOLZ, PAMELA Attending Unavailable AICHHOLZ, PAMELA Attending Unavailable AICHHOLZ, PAMELA Attending Unavailable Allergies Allergy Classification Reported Allergen(s) Allergy Type Date of Onset Reaction(s) Facility (3 sources) Ampicillin; Translations: [AMPICILLIN] Drug Allergy 02-10-2012 [facility] Repository (20 sources) Ampicillin Drug Allergy 02-10-2012 [facility] (1 source) Ampicillin Drug Allergy 10-04-2021 [facility] Repository Medications Current Medications Medication [...] for up to 3 days 02/28/2023 Active [id number] 200 actuat albuterol 0.09 mg/actuat metered dose [...] (three) times a day as needed. Active betamethasone 0.5 mg/ml / clotrimazole 10 mg/ml topical cream (5 sources) Azole Antifungal, Corticosteroid Start: End: clotrimazole-betameth asone (Lotrisone) cream Indications: Tinea pedis of both feet Apply 1 application topically in the morning and 1 application before bedtime. 45 g 1 04/28/2025 05/28/2025 Active biotin 1 mg oral capsule (11 sources) biotin 1 MG caps ule Take [...] Vitamin D Start: End: cholecalciferol 50 MCG (1999 UT) tablet Indications: Vitamin D Deficiency 2,000 international units once a day 30 tablet 5 11/17/2023 08/18/2024 Discontinued (Therapy completed) Start: 03-14-2021 take 1 tablet by dacia th in the morning cholecalciferol, vitamin D3, 2,000 units tablet Take 1 tablet (2,000 Units total) by mouth in the morning. 03/14/2021 Active End: 11-27-2024 take 1 capsule by mouth once daily [...] (Reorder) folic acid 1 mg oral tablet (11 sources) take 1 tablet by mouth in the morning folic acid (Folvite) 1 MG tablet Take 1 mg by mouth in the morning. Active furosemide 20 mg oral tablet (18 sources) Loop Diuretic End: furosemide (LASIX) 20 mg tablet Take 1 tablet (20 mg total) by mouth. Active loratadine 10 mg disintegrating oral tablet (20 sources) take 1 tablet by mouth once daily loratadine (Claritin Reditabs) 10 MG [...] meq/ml oral solution (2 sources) Star t: 04-22- 21 sodium,potassium,mag sulfates (SUPREP BOWEL PREP KIT) 17.5-3.13-1.6 gram recon soln Indications: Colon cancer screening 177 ml,actual weight, 2 times daily, Oral 354 mL 05/10/2021 Active meclizine hydrochloride 25 mg oral tablet (10 sources) Antiemetic End: 06-22 6-20 24 take 1 tablet by mouth four [...] 40 mg by mouth nightly. 03/28/2021 Active Completed/Discontinued Medications Medication Drug Class(es) Dates Sig (Normalized) Sig (Original) levothyroxine sodium 0.05 mg oral tablet (20 sources) l-Thyroxine Start: 12-13-2024 End: 08-08-2025 take 1 tablet by mouth before mealtime levothyroxine (Synthroid, Levoxyl) 50 MCG tablet Indications: Hypothyroidism (acquired) Take 1 tablet (50 mcg) by mouth in the morning. Take before meals. 90 tablet 02/09/2025 05/10/2025 Discontinued (Reorder) Start: 07-13-2024 End: 10-13-2024 take 1 tablet [...] meals. 30 tablet 1 10/13/2024 2024 Active Problems Active Problems Problem Classification Problem [...] hypertension] Onset: 4 05-10-2024 Chronic Gastrointestinal hemorrhage (8 sources) Black feces; Translations: [Melena] Onset: 5 04-21-2025 Episodic Inflammation; infection of eye (except that caused by tuberculosis or sexually transmitteddisease) (2 sources) Eyelash follicle finding; Translations: [Unspecified inflammation of eyelid] Onset: 5 04-07-2025 Episodic Mycoses (19 sources) Onychomycosis; Translations: [Tinea unguium] Onset: 5 04-13-2025 Episodic Neoplasms of unspecified nature or uncertain behavior (5 sources) Neoplasm of uncertain behavior of skin; Translations: [Neoplasm of uncertain behavior of skin] Onset: 5 04-28-2025 Episodic Nutritional deficiencies (20 sources) Vitamin D [...] unspecified] 04-29-2024 Episodic Other connective tissue disease (2 sources) Pain in right foot; Translations: [Pain in right foot] 04-28-2025 Episodic Other ear and sense organ disorders [...] degeneration, bilateral; 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, 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 Other hematologic conditions (3 sources) Increased serum protein level; Translations: [Abnormality of plasma protein, unspecified] Onset: 5 05-06-2025 Episodic Other non-traumatic joint disorders (3 sources) [...] in adult] Onset: 4 08-18-2024 Chronic Other nutritional; endocrine; and metabolic disorders (3 sources) Hypercalcemia; Translations: [Hypercalcemia] Onset: 5 05-06-2025 Chronic Other upper respiratory disease (20 sources) [...] Unclassified (1 source) Blurred Vision Onset: 5 Viral infection (2 sources) Verruca plantaris; Translations: [Plantar wart] 04-28-2025 Episodic Past or Other Problems Problem Classification Problem [...] Name Value Interpretation Reference Range Facility ALL CBC WITH AUTO DIFFon BASOPHILS ABSOLUTE AUTO 0.1 [facility] Basophils/100 WBC (Bld) 1.4 % 0.2 - 2.0 % [facility] Eosinophils/100 WBC (Bld) 2.6 % 0.9 - 7.0 % [facility] Erythrocyte distribution width (RBC) [Ratio] 13.8 % 11.0 - 15.0 % [facility] Hematocrit (Bld) [Volume fraction] 38.2 % 36.0 - 48.0 % [facility] Hemoglobin (Bld) [Mass/Vol] 12.4 g/dL 12.0 - 16.0 g/dL [facility] IMMATURE GRANULOCYTES ABS AUTO 0.01 [facility] Immature granulocytes/100 WBC (Bld) 0.1 % 0.0 - 0.5 % [facility] Interpretation and review of laboratory results Abnormal [facility] LYMPHOCYTES ABSOLUTE AUTO 2.8 [facility] Lymphocytes/100 WBC (Bld) 35.9 % 20.5 - 60.0 % [facility] MCH (RBC) [Entitic mass] 27.1 pg 26.7 - 34.0 pg [facility] MCHC (RBC) [Mass/Vol] 32.5 g/dL 29.9 - 35.2 g/dL [facility] MCV (RBC) [Entitic vol] 83.4 fL 81.0 - 99.0 fL [facility] MONOCYTES ABSOLUTE AUTO 0.6 [facility] Monocytes/100 WBC (Bld) 7.4 % 1.7 - 12.0 % [facility] NEUTROPHILS ABSOLUTE AUTO 4.1 [facility] Neutrophils/100 WBC (Bld) 52.6 % 43.0 - 75.0 % [facility] Platelet mean volume (Bld) [Entitic vol] 9.2 fL Low 9.5 - 13.5 fL [facility] TBH EO # 0.2 [facility] TB PLT 551 High [facility] RBC 4.58 [facility] WBC 7.7 [facility] HbA1c (Bld) [Mass fraction]o n 04-13-2025 Interpretation and review of laboratory results Abnormal [facility] Laboratory - Hematology and Cell countson 04-13-2025 HbA1c (Bld) [Mass fraction] 6.2 % [facility] MM TOMOSYNTHESIS SCREENING B Ion 01-05-2025 [place] [address] Mammography Report Signed Patient: BERNARD PONCE MR#: [id number] : 1945 Acct:[id number] Age/Sex: 79 / F ADM Date: 01/05/25 Loc: MAMMO Attending Dr: Pamela Moore NP Ordering Physician: Pamela Moore NP Results: Date of Service: 01/05/25 Follow Up: Procedure(s): MM tomosynthesis screening BI Accession Number(s): [id number] cc: Pamela Moore NP Patient Name: BERNARD PONCE MR#: [id number] : 1945 Exam Date: 01/05/2025 Ordering Doctor: COCO Moore APPLICATIONS SYSTEM ANALYST RADIOLOGY REPORT PROCEDURE: MM TOMOSYNTHESIS SCREENING BI [...] breast cancer at age 62. LOCATION: [facility] BREAST COMPOSITION: There are scattered areas [...] Signed By: 01/05/25 1415 DD/ 1414 TD/TT: Preschool Adviser: [facility] Radiology, Radiologist, MD - 01/05/2025 [place] [address] Mammography Report Signed Patient: BERNARD PONCE MR#: [id number] : 1945 Acct:[id number] Age/Sex: 79 / F ADM Date: 01/05/25 Loc: MAMMO Attending Dr: Pamela Moore NP Ordering Physician: Pamela Moore NP Results: Date of Service: 01/05/25 Follow Up: Procedure(s): MM tomosynthesis screening BI Accession Number(s): [id number] cc: Pamela Moore NP Patient Name: BERNARD PONCE MR#: [id number] : 1945 Exam Date: 01/05/2025 Ordering Doctor: COCO Moore APPLICATIONS SYSTEM ANALYST RADIOLOGY REPORT PROCEDURE: MM TOMOSYNTHESIS SCREENING BI [...] breast cancer at age 62. LOCATION: [facility] BREAST COMPOSITION: There are scattered areas [...] Signed By: 01/05/25 1415 DD/ 1414 TD/TT: Preschool Adviser: [facility] Radiology Study observation (narrative) [facility] MM TOMOSYNTHESIS SCREENING B IOrdered By: Radiologist Radiology on 01-05-2025 [facility] Work Phone: ALL THYROID STIM HORMONEon 0 12-24-2024 TSH Qn 2.172 m[IU]/L [facility]ROID STIM HORMONEon 0 10-11-2024 Interpretation and review of laboratory results Abnormal [facility] TSH Qn 4.868 m[IU]/L High [facility] ALL THYROXINE (T4) FREEon Free T4 [Mass/Vol] 1 ng/dL 0.76 - 1. 46 ng/dL [facility] No Panel Informationon 10-11 [facility] MLR HEMOGLOBIN A1Con 024 Glucose [Mass/Vol] 128 mg/dL [facility] HbA1c (Bld) [Mass fraction] 6.1 % 4.5 - 6.2 % [facility] Comment on above: ADA RECOMMENDED LIMI T 4.0 - 6.0 ADA THERAPEUTIC TARGET < 7.0 ACTION SUGGESTED > 7.0 [facility] UA (CLEAN/CATCH) MICROSC OPIC IF INDICATEon 08-18-2024 BILIRUBIN URINE Negative NEGATIVE [facility] BLOOD URINE Negative NEGATIVE [facility] Clarity (U) CLEAR CLEAR [facility] Color (U) LT. YELLOW YELLOW [facility] GLUCOSE URINE UA Negative NEGATIVE mg/dL [facility] Ketones Ql (U) Negative NEGATIVE mg/dL [facility] Leukocyte esterase Test strip Ql (U) Negative NEGATIVE [facility] NITRITE URINE Negative NEGATIVE [facility] pH (U) 7.5 [pH] 5.0 - 9.0 [facility] PROTEIN URINE Negative NEG/TRACE mg/dL [facility] SPECIFIC GRAVITY URINE 1.015 1.005 - 1.025 [facility] URINE MICROSCOPIC INDICATED NO [facility] UROBILINOGEN URINE 0.2 EU/dL 0.2 - 1.0 EU/dL [facility] IGP,APTIMA HPV,AGE GDLNon AGE GDLN ACOG TESTING Note . [facility] Comment on above: TESTS RESULT FLAG UN ITS REF RANGE LAB Clinician Provided Cytology Information Source.............Cervix;Endocervix No. of containers..01 ThinPrep Vial Age Algo ACOG Karla... Note 01 <21 or >65 or no age provided FLAG LEGEND: L-Low Normal,H-High Normal,LL-Alert Low,HH-Alert High <-Panic Low,>-Panic High,A-Abnormal,AA-Critical Abnormal Performed at: 01 =G [facility] [address] [place] [address] Prerna Arzate MD, PAP IG (IMAGE GUIDED) Note . [facility] Comment on above: TESTS RESULT FLAG UN ITS REF RANGE LAB DIAGNOSIS: 02 NEGATIVE FOR INTRAEPITHELIAL LESION OR MALIGNANCY. Specimen adequacy: 02 Satisfactory for evaluation. Endocervical and/or squamous metaplastic cells (endocervical component) are present. Performed by: 02 Pamela Gómez, Nursing Home Assistant ([facility]) . 02 Note: Note 03 The [...] <-Panic Low,>-Panic High,A-Abnormal,AA-Critical Abnormal Performed at: 02 [facility] [address] [employer] [place] [address] Martin Machado MD, 03 WB [facility] [address] [address] Prerna Arzate MD, Performed at: =G - [facility] [address] [id number] Vacuum Cooker Operator: Prerna Arzate MD, Phone: [phone] Performed at: [facility] - [facility] [address] [place], [place] [id number] Vacuum Cooker Operator: Martin Machado MD, Phone: [phone] BROOM-ALONE CERVIX ENDOCERVIX [facility] VAGINITIS (HTRX)on 4 ATOPOBIUM VAGINAE 0 [facility] ATOPOBIUM VAGINAE Not detected [facility] BVAB 2,3 (BACTERIAL VAGINOSIS ASSOCIATED BACTERIA 2, 3); MOBILUNCUS SPP 0 [facility] BVAB 2,3 (BACTERIAL VAGINOSIS ASSOCIATED BACTERIA 2, 3); MOBILUNCUS SPP Not detected [facility] JANAY ALBICANS, PARAPSILOSIS, TROPICALIS 0 [facility] JANAY ALBICANS, PARAPSILOSIS, TROPICALIS Not detected [facility] JANAY GLABRATA 0 [facility] JANAY GLABRATA Not detected [facility] JANAY KRUSEI 0 [facility] JANAY KRUSEI Not detected [facility] CHLAMYDIA TRACHOMATIS 0 [facility] CHLAMYDIA TRACHOMATIS Not detected [facility] GARDNERELLA VAGINALIS 0 [facility] GARDNERELLA VAGINALIS Not detected [facility] HERPES SIMPLEX VIRUS 1 0 [facility] HERPES SIMPLEX VIRUS 1 Not detected [facility] HERPES SIMPLEX VIRUS 2 0 [facility] HERPES SIMPLEX VIRUS 2 Not detected [facility] MEGASPHAERA (TYPES 1, 2) 0 [facility] MEGASPHAERA (TYPES 1, 2) Not detected [facility] NEISSERIA GONORRHOEAE 0 [facility] NEISSERIA GONORRHOEAE Not detected [facility] TRICHOMONAS VAGINALIS 0 [facility] TRICHOMONAS VAGINALIS Not detected [facility] XR shoulder RT min 2V*on XR shoulder RT min 2V* [facility] [address] [place] [address] XRay Report Signed Patient: Bernard Ponce MR#: [id number] 2 : 1945 Acct:[id number] Age/Sex: 78 / F ADM Date: 04/29/24 Loc: [facility] Room: Type: [facility] Attending Dr: Braxton Escalante DO Copies to: [...] Ra Acosta M.D.04/29/2024 3:49 PM Dictation Location: [facility]14 Transcribed By: [facility] 04/29/24 1549 Dictated By: Ra Acosta DO 04/29/24 1548 Signed By: 04/29/24 1549 Normal [facility] XR shoulder LT min 2V*on XR shoulder LT min 2V* [facility] Main [place] [address] [place] [address] XRay Report Signed Patient: Bernard Ponce MR#: [id number] 2 : 1945 Acct:[id number] Age/Sex: 78 / F ADM Date: 12/11/23 Loc: [facility] Room: Type: [facility] Attending Dr: Braxton Escalante DO Copies to: [...] Alvaro Carvajal M.D.12/11/2023 12:01 PM Dictation Location: [facility] Transcribed By: [facility] 12/11/23 1201 Dictated By: Alvaro Carvajal II, MD 12/11/23 1159 Signed By: 12/11/23 1201 Normal [facility] MG MAMM SCREEN 3D DAVID CADon 01-03-2023 MG MAMM SCREEN 3D DAVID CAD Patient: BERNARD PONCE Exam Date: 01/03/2023 : 1945 Gender:F Ordering : COCO PAMELA MOORE APPLICATIONS SYSTEM ANALYST Admission #: [id number] Family : Order #: [id number] CLICK HERE TO VIEW EXAM RADIOLOGY REPORT [...] breast cancer at age 62. LOCATION: [facility] BREAST COMPOSITION: Scattered areas fibroglandular density. [...] MD on 01/06/2023 at 09:57 Normal [facility] FREE T3on 12-16-2022 FREE T3 2.70 pg/mlL Normal 2.18-3.98 [facility] Comment on above: Performed By: #### T SH, FT3 #### [facility] [address] [address] [address] Glenny Sneed FREE T4on 12-16-2022 Free T4 [Mass/Vol] 0.92 ng/dL Normal 0.76-1.46 [facility] Comment on above: Performed By: #### F T4 #### [facility] [address] [place], [place] [address] Dr. Glenny Sneed TSHon 12-16-2022 TSH 3.444 uIU/mL Normal 0.358-3.740 [facility] Comment on above: Performed By: #### T SH, FT3 #### [facility] [address] [place] [address] Dr. Glenny Sneed CBC AUTO DIFFon 11-07-2022 BASO # 0.1 103/ul Normal 0.0-0.1 [facility] Comment on above: Performed By: #### T SH, FT3 #### [facility] [address] [place] [address] Dr. Glenny Sneed Basophils/100 WBC (Bld) 1.2 % Normal 0.2-2.0 [facility] Comment on above: Performed By: #### T SH, FT3 #### [facility] [address] [place] [address] Dr. Glenny Sneed EO # 0.2 103/ul Normal 0.0-0.7 [facility] Comment on above: Performed By: #### T SH, FT3 #### [facility] [address] [place] [address] Dr. Glenny Sneed Eosinophils/100 WBC (Bld) 2.8 % Normal 0.9-7.0 [facility] Comment on above: Performed By: #### T SH, FT3 #### [facility] [address] [place] [address] Dr. Glenny Sneed Erythrocyte distribution width (RBC) [Ratio] 13.5 % Normal 11.0-15.0 [facility] Comment on above: Performed By: #### T SH, FT3 #### [facility] [address] [place] [address] Dr. Glenny Sneed Hematocrit (Bld) [Volume fraction] 40.3 % Normal 36.0-48.0 [facility] Comment on above: Performed By: #### T SH, FT3 #### [facility] [address] [place] [address] Dr. Glenny Sneed Hemoglobin (Bld) [Mass/Vol] 12.9 g/dL Normal 12.0-16.0 [facility] Comment on above: Performed By: #### T SH, FT3 #### [facility] [address] [address] [address] Glenny Sneed IG # 0.01 10e3/ul Normal 0.00-0.03 [facility] Comment on above: Performed By: #### T SH, FT3 #### [facility] [address] [address] [address] Glenny Sneed IG % 0.2 % Normal 0.0-0.5 [facility] Comment on above: Performed By: #### T ZENAIDA, FT3 #### [facility] [address] [address] [address] Glenny Sneed LYMPH # 2.5 103/ul Normal 1.2-3.8 [facility] Comment on above: Performed By: #### T ZENAIDA, FT3 #### [facility] [address] [place] [address] Dr. Glenny Sneed Lymphocytes/100 WBC (Bld) 38.2 % Normal 20.5-60.0 [facility] Comment on above: Performed By: #### T ZENAIDA, FT3 #### [facility] [address] [place] [address] Dr. Glenny Sneed MANUAL DIFF REQ NO Normal [facility] Comment on above: Performed By: #### T ZENAIDA, FT3 #### [facility] [address] [place] [address] Dr. Glenny Sneed MCH (RBC) [Entitic mass] 27.2 pg Normal 26.7-34.0 [facility] Comment on above: Performed By: #### T ZENAIDA, FT3 #### [facility] [address] [place] [address] Dr. Glenny Sneed MCHC (RBC) [Mass/Vol] 32.0 g/dL Normal 29.9-35.2 [facility] Comment on above: Performed By: #### T ZENAIDA, FT3 #### [facility] [address] [place] [address] Dr. Glenny Sneed MCV (RBC) [Entitic vol] 84.8 fL Normal 81.0-99.0 [facility] Comment on above: Performed By: #### T ZENAIDA, FT3 #### [facility] [address] [place] [address] Dr. Glenny Sneed MONO # 0.6 103/ul Normal 0.3-0.8 [facility] Comment on above: Performed By: #### T SH, FT3 #### [facility] [address] [place] [address] Dr. Glenny Sneed Monocytes/100 WBC (Bld) 8.5 % Normal 1.7-12.0 [facility] Comment on above: Performed By: #### T SH, FT3 #### [facility] [address] [place] [address] Dr. Glenny Sneed NEUT # 3.2 103/ul Normal 1.4-6.5 [facility] Comment on above: Performed By: #### T SH, FT3 #### [facility] [address] [place] [address] Dr. Glenny Sneed Neutrophils/100 WBC (Bld) 49.1 % Normal 43.0-75.0 [facility] Comment on above: Performed By: #### T , FT3 #### [facility] [address] [place] [address] Dr. Glenny Sneed Platelet mean volume (Bld) [Entitic vol] 10.2 fL Normal 9.5-13.5 [facility] Comment on above: Performed By: #### T , FT3 #### [facility] [address] [place] [address] Dr. Glenny Sneed PLT 350 103/ul Normal 150-450 [facility] Comment on above: Performed By: #### T , FT3 #### [facility] [address] [place] [address] Dr. Glenny Sneed RBC 4.75 106/ul Normal 4.20-5.40 [facility] Comment on above: Performed By: #### T SH, FT3 #### [facility] [address] [place] [address] Dr. Glenny Sneed WBC 6.5 103/ul Normal 4.0-11.0 [facility] Comment on above: Performed By: #### T SH, FT3 #### [facility] [address] [address] [address] Glenny Sneed FREE T4on 11-07-2022 Free T4 [Mass/Vol] 1.15 ng/dL Normal 0.76-1.46 [facility] Comment on above: Performed By: #### F T4, VITAD #### [facility] [address] [address] [address] Glenny Sneed GLYCOHEMOGLOBIN A1Con 2022 ADA RECOMMENDATION SEE BELOW Normal [facility] Comment on above: Result Comment: ADA RECOMMENDED LIMIT 4.0 - 6.0 ADA THERAPEUTIC TARGET < 7.0 ACTION SUGGESTED > 7.0 Performed By: #### A 1C #### [facility] [address] [place] [address] Dr. Glenny Sneed Glucose [Mass/Vol] 120 mg/dL Normal [facility] Comment on above: Performed By: #### A 1C #### [facility] [address] [address] [address] Glenny Sneed HbA1c (Bld) [Mass fraction] 5.8 % Normal 4.5-6.2 [facility] Comment on above: Performed By: #### A 1C #### [facility] [address] [place] [address] Dr. Glenny Sneed LIPID PROFILEon 11-07-2022 CHOL-HDL RATIO NORM SEE BELOW Normal [facility] Comment on above: Result Comment: 3.3 - 4.4 LOW RISK 4.4 - 7.1 AVERAGE RISK 7.1 - 11.0 MODERATE RISK >11.0 HIGH RISK Performed By: #### L IPID, CMP, TSH #### [facility] [address] [address] [address] Glenny Sneed Cholesterol [Mass/Vol] 185 mg/dL Normal <=200 [facility] Comment on above: Performed By: #### L IPID, CMP, TSH #### [facility] [address] [address] [address] Glenny Sneed Cholesterol in HDL [Mass/Vol] 63 mg/dL Critically high 40-60 [facility] Comment on above: Performed By: #### L IPID, CMP, TSH #### [facility] [address] [address] [address] Glenny Sneed Cholesterol in LDL [Mass/Vol] 87.6 mg/dL Normal [facility] Comment on above: Performed By: #### L IPID, CMP, TSH #### [facility] [address] [address] [address] Glenny Sneed Cholesterol.total/Ch olesterol in HDL [Mass ratio] 2.9 {ratio} Normal [facility] Comment on above: Performed By: #### L IPID, CMP, TSH #### [facility] [address] [address] [address] Glenny Sneed HDL NORMAL > or = 60 mg/dl - LO W CARDIOVASCULAR RISK <40 mg/dl - HIGH CARDIOVASCULAR RISK Normal [facility] Comment on above: Performed By: #### L IPID, CMP, TSH #### [facility] [address] [address] [address] Glenny Sneed LDL CALC NORMAL SEE BELOW Normal [facility] Comment on above: Result Comment: <100 mg/dl OPTIMAL 100 - 129 mg/dl NEAR OR ABOVE OPTIMAL 130 - 159 mg/dl BORDERLINE HIGH 160 - 189 mg/dl HIGH >190 mg/dl VERY HIGH Performed By: #### L IPID, CMP, TSH #### [facility] [address] [address] [address] Glenny Sneed Triglyceride [Mass/Vol] 172 mg/dL Critically high <=150 [facility] Comment on above: Performed By: #### L IPID, CMP, TSH #### [facility] [address] [address] [address] Glenny Sneed VLDL CALC 34.4 mg/dL Normal [facility] Comment on above: Performed By: #### L IPID, CMP, TSH #### [facility] [address] [address] [address] Glenny Sneed PROF 14(COMP METB)on 023 Albumin [Mass/Vol] 4.1 g/dL Normal 3.4-5.0 [facility] Comment on above: Performed By: #### L IPID, CMP, TSH #### [facility] [address] [address] [address] Glenny Sneed Albumin/Globulin [Mass ratio] 1.0 {ratio} Normal [facility] Comment on above: Performed By: #### L IPID, CMP, TSH #### [facility] [address] [address] [address] Glenny Sneed ALP [Catalytic activity/Vol] 77 U/L Normal 46-116 [facility] Comment on above: Performed By: #### L IPID, CMP, TSH #### [facility] [address] [address] [address] Glenny Sneed ALT [Catalytic activity/Vol] 33 U/L Normal 14-59 [facility] Comment on above: Performed By: #### L IPID, CMP, TSH #### [facility] [address] [place] [address] Dr. Glenny Sneed Anion gap [Moles/Vol] 13.1 mmol/L Normal [facility] Comment on above: Performed By: #### L IPID, CMP, TSH #### [facility] [address] [place] [address] Dr. Glenny Sneed AST [Catalytic activity/Vol] 22 U/L Normal 15-37 [facility] Comment on above: Performed By: #### L IPID, CMP, TSH #### [facility] [address] [address] [address] Glenny Sneed Bilirubin [Mass/Vol] 0.7 mg/dL Normal 0.2-1.0 [facility] Comment on above: Performed By: #### L IPID, CMP, TSH #### [facility] [address] [place] [address] Dr. Glenny Sneed Calcium [Mass/Vol] 10.0 mg/dL Normal 8.5-10.1 [facility] Comment on above: Performed By: #### L IPID, CMP, TSH #### [facility] [address] [place] [address] Dr. Glenny Sneed Chloride [Moles/Vol] 102 mmol/L Normal 98-107 [facility] Comment on above: Performed By: #### L IPID, CMP, TSH #### [facility] [address] [address] [address] Glenny Sneed CO2 [Moles/Vol] 29.9 mmol/L Normal 21.0-32.0 [facility] Comment on above: Performed By: #### L IPID, CMP, TSH #### [facility] [address] [address] [address] Glenny Sneed Creatinine [Mass/Vol] 0.66 mg/dL Normal 0.55-1.02 [facility] Comment on above: Performed By: #### L IPID, CMP, TSH #### [facility] [address] [place] [address] Dr. Glenny Sneed EGFR-AF SIERRA LEONEAN >60 Normal >=60 [facility] Comment on above: Performed By: #### L IPID, CMP, TSH #### [facility] [address] [place] [address] Dr. Glenny Sneed EGFR-NON AF SIERRA LEONEAN >60 Normal >=60 [facility] Comment on above: Performed By: #### L IPID, CMP, TSH #### [facility] [address] [address] [address] Glenny Sneed Globulin (S) [Mass/Vol] 4.0 g/dL Normal [facility] Comment on above: Performed By: #### L IPID, CMP, TSH #### [facility] [address] [address] [address] Glenny Sneed Glucose [Mass/Vol] 106 mg/dL Normal 74-106 [facility] Comment on above: Performed By: #### L IPID, CMP, TSH #### [facility] [address] [address] [address] Glenny Sneed Potassium [Moles/Vol] 4.0 mmol/L Normal 3.5-5.1 [facility] Comment on above: Performed By: #### L IPID, CMP, TSH #### [facility] [address] [address] [address] Glenny Sneed Protein [Mass/Vol] 8.1 g/dL Normal 6.4-8.2 [facility] Comment on above: Performed By: #### L IPID, CMP, TSH #### [facility] [address] [place] [address] Dr. Glenny Sneed Sodium [Moles/Vol] 141 mmol/L Normal 136-145 [facility] Comment on above: Performed By: #### L IPID, CMP, TSH #### [facility] [address] [place] [address] Dr. Glenny Sneed Urea nitrogen [Mass/Vol] 9.0 mg/dL Normal 7.0-18.0 [facility] Comment on above: Performed By: #### L IPID, CMP, TSH #### [facility] [address] [place] [address] Dr. Glenny Sneed Urea nitrogen/Creatinine [Mass ratio] 13.6 mg/mg Normal [facility] Comment on above: Performed By: #### L IPID, CMP, TSH #### [facility] [address] [place] [address] Dr. Glenny Sneed TSHon 11-07-2022 TSH 2.008 uIU/mL Normal 0.358-3.740 [facility] Comment on above: Performed By: #### L IPID, CMP, TSH #### [facility] [address] [place] [address] Dr. Glenny Sneed UA RANDOM W/MICROSCOPICon BACTERIA NONE SEEN Normal NONE SEEN [facility] Comment on above: Performed By: #### U AMIC #### [facility] [address] [place] [address] Dr. Glenny Sneed Bilirubin Ql (U) Negative Normal NEGATIVE [facility] Comment on above: Performed By: #### U AMIC #### [facility] [address] [place] [address] Dr. Glenny Sneed CAST NONE SEEN Normal NONE SEEN [facility] Comment on above: Performed By: #### U AMIC #### [facility] [address] [address] [address] Glenny Sneed Clarity (U) CLEAR Normal CLEAR [facility] Comment on above: Performed By: #### U AMIC #### [facility] [address] [address] [address] Glenny Sneed Color (U) LT. YELLOW Normal YELLOW [facility] Comment on above: Performed By: #### U AMIC #### [facility] [address] [address] [address] Glenny Sneed Crystals LM Nom (Urine sed) NONE SEEN Normal NONE SEEN [facility] Comment on above: Performed By: #### U AMIC #### [facility] [address] [place] [address] Dr. Glenny Sneed Epithelial cells LM Ql (Urine sed) NONE SEEN Normal NONE SEEN /RARE [facility] Comment on above: Performed By: #### U AMIC #### [facility] [address] [place] [address] Dr. Glenny Sneed Glucose Ql (U) Negative Normal NEGATIVE [facility] Comment on above: Performed By: #### U AMIC #### [facility] [address] [place] [address] Dr. Glenny Sneed Hemoglobin Ql (U) TRACE-INTACT Abnormal NEGATIVE [facility] Comment on above: Performed By: #### U AMIC #### [facility] [address] [place] [address] Dr. Glenny Sneed Ketones Ql (U) Negative Normal NEGATIVE [facility] Comment on above: Performed By: #### U AMIC #### [facility] [address] [place] [address] Dr. Glenny Sneed LEUKOCYTES Negative Normal NEGATIVE [facility] Comment on above: Performed By: #### U AMIC #### [facility] [address] [place] [address] Dr. Glenny Sneed MUCOUS NONE SEEN Normal NONE SEEN [facility] Comment on above: Performed By: #### U AMIC #### [facility] [address] [place] [address] Dr. Glenny Sneed Nitrite Ql (U) Negative Normal NEGATIVE [facility] Comment on above: Performed By: #### U AMIC #### [facility] [address] [address] [address] Glenny Sneed pH (U) 6.5 [pH] Normal 5-9 [facility] Comment on above: Performed By: #### U AMIC #### [facility] [address] [address] [address] Glenny Sneed RBC 0-2 Normal 0-2 [facility] Comment on above: Performed By: #### U AMIC #### [facility] [address] [address] [address] Glenny Sneed SPEC GRAVITY <=1.005 Abnormal 1.005-<=1.025 [facility] Comment on above: Performed By: #### U AMIC #### [facility] [address] [place] [address] Dr. Glenny Sneed UA PROTEIN Negative Normal NEGATIVE/ TRACE [facility] Comment on above: Performed By: #### U AMIC #### [facility] [address] [address] [address] Glenny Sneed Urobilinogen Qn (U) 0.2 {Justice'U}/dL Normal 0.2 - 1. 0 [facility] Comment on above: Performed By: #### U AMIC #### [facility] [address] [place] [address] Dr. Glenny Sneed WBC NONE SEEN Normal NONE SEEN [facility] Comment on above: Performed By: #### U AMIC #### [facility] [address] [place] [address] Dr. Glenny Sneed VITAMIN D 25 OHon 11-07-2022 VIT D 25-OH 35.2 ng/mL Normal [facility] Comment on above: Performed By: #### F T4, VITAD #### [facility] [address] [place] [address] Dr. Glenny Sneed VIT D RANGES SEE BELOW Normal [facility] Comment on above: Result Comment: <20 ng/mL Vit D deficient 20 - <30 ng/mL Vit D insufficient 30 - 100 ng/mL Vit D sufficient >100 ng/mL Potential Toxicity Performed By: #### F T4, VITAD #### [facility] [address] [place] [address] Dr. Glenny Sneed HEPATITIS C ANTIBODYon 05-10 Hep C Virus Ab <0.1 Normal 0.0-0.9 [facility] Comment on above: Result Comment: Nega [...] Hepatitis C Virus (HCV) RNA, Diagnosis, CORTES (735810) and Hepatitis C Virus (HCV) Antibody with reflex to Quantitative Real-time PCR ([id number]). Performed By: #### T SH, FT3 #### [facility] [address] [place] [address] Dr. Glenny Sneed LIPID PROFILEon 05-08-2022 CHOL-HDL RATIO NORM SEE BELOW Normal [facility] Comment on above: Result Comment: 3.3 - 4.4 LOW RISK 4.4 - 7.1 AVERAGE RISK 7.1 - 11.0 MODERATE RISK >11.0 HIGH RISK Performed By: #### T SH, FT3 #### [facility] [address] [place] [address] Dr. Glenny Sneed Cholesterol [Mass/Vol] 173 mg/dL Normal <=200 [facility] Comment on above: Performed By: #### T SH, FT3 #### [facility] [address] [place] [address] Dr. Glenny Sneed Cholesterol in HDL [Mass/Vol] 67 mg/dL Critically high 40-60 [facility] Comment on above: Performed By: #### T SH, FT3 #### [facility] [address] [place] [address] Dr. Glenny Sneed Cholesterol in LDL [Mass/Vol] 77.8 mg/dL Normal [facility] Comment on above: Performed By: #### T SH, FT3 #### [facility] [address] [place] [address] Dr. Glenny Sneed Cholesterol.total/Ch olesterol in HDL [Mass ratio] 2.6 {ratio} Normal [facility] Comment on above: Performed By: #### T SH, FT3 #### [facility] [address] [address] [address] Glenny Sneed HDL NORMAL > or = 60 mg/dl - LO W CARDIOVASCULAR RISK <40 mg/dl - HIGH CARDIOVASCULAR RISK Normal [facility] Comment on above: Performed By: #### T SH, FT3 #### [facility] [address] [place] [address] Dr. Glenny Sneed LDL CALC NORMAL SEE BELOW Normal [facility] Comment on above: Result Comment: <100 mg/dl OPTIMAL 100 - 129 mg/dl NEAR OR ABOVE OPTIMAL 130 - 159 mg/dl BORDERLINE HIGH 160 - 189 mg/dl HIGH >190 mg/dl VERY HIGH Performed By: #### T SH, FT3 #### [facility] [address] [place] [address] Dr. Glenny Sneed Triglyceride [Mass/Vol] 141 mg/dL Normal <=150 [facility] Comment on above: Performed By: #### T ZENAIDA, FT3 #### [facility] [address] [place] [address] Dr. Glenny Sneed VLDL CALC 28.2 mg/dL Normal [facility] Comment on above: Performed By: #### T ZENAIDA, FT3 #### [facility] [address] [place] [address] Dr. Glenny Sneed LIVER PROFILEon 05-08-2022 Albumin [Mass/Vol] 4.0 g/dL Normal 3.4-5.0 [facility] Comment on above: Performed By: #### T SH, FT3 #### [facility] [address] [place] [address] Dr. Glenny Sneed Albumin/Globulin [Mass ratio] 1.0 {ratio} Normal [facility] Comment on above: Performed By: #### T ZENAIDA, FT3 #### [facility] [address] [place] [address] Dr. Glenny Sneed ALP [Catalytic activity/Vol] 77 U/L Normal 46-116 [facility] Comment on above: Performed By: #### T ZENAIDA, FT3 #### [facility] [address] [place] [address] Dr. Glenny Sneed ALT [Catalytic activity/Vol] 39 U/L Normal 14-59 [facility] Comment on above: Performed By: #### T ZENAIDA, FT3 #### [facility] [address] [place] [address] Dr. Glenny Sneed AST [Catalytic activity/Vol] 20 U/L Normal 15-37 [facility] Comment on above: Performed By: #### T ZENAIDA, FT3 #### [facility] [address] [place] [address] Dr. Glenny Sneed BILI, CONJUGATED 0.1 mg/dL Normal 0.0-0.2 [facility] Comment on above: Performed By: #### T ZENAIDA, FT3 #### [facility] [address] [place] [address] Dr. Glenny Sneed Bilirubin [Mass/Vol] 0.7 mg/dL Normal 0.2-1.0 [facility] Comment on above: Performed By: #### T ZENAIDA, FT3 #### [facility] [address] [place] [address] Dr. Glenny Sneed Globulin (S) [Mass/Vol] 4.0 g/dL Normal [facility] Comment on above: Performed By: #### T ZENAIDA, FT3 #### [facility] [address] [place] [address] Dr. Glenny Sneed Protein [Mass/Vol] 8.0 g/dL Normal 6.4-8.2 [facility] Comment on above: Performed By: #### T ZENAIDA, FT3 #### [facility] [address] [place] [address] Dr. Glenny Sneed LIVER PROFILEon 02-13-2022 Albumin [Mass/Vol] 3.9 g/dL Normal 3.4-5.0 [facility] Comment on above: Performed By: #### T ZENAIDA, FT3 #### [facility] [address] [address] [address] Glenny Sneed Albumin/Globulin [Mass ratio] 1.0 {ratio} Normal [facility] Comment on above: Performed By: #### T ZENAIDA, FT3 #### [facility] [address] [address] [address] Glenny Sneed ALP [Catalytic activity/Vol] 112 U/L Normal 46-116 [facility] Comment on above: Performed By: #### T ZENAIDA, FT3 #### [facility] [address] [address] [address] Glenny Sneed ALT [Catalytic activity/Vol] 50 U/L Normal 14-59 [facility] Comment on above: Performed By: #### T ZENAIDA, FT3 #### [facility] [address] [place] [address] Dr. Glenny Sneed AST [Catalytic activity/Vol] 25 U/L Normal 15-37 [facility] Comment on above: Performed By: #### T ZENAIDA, FT3 #### [facility] [address] [place] [address] Dr. Glenny Sneed BILI, CONJUGATED 0.2 mg/dL Normal 0.0-0.2 [facility] Comment on above: Performed By: #### T ZENAIDA, FT3 #### [facility] [address] [place] [address] Dr. Glenny Sneed Bilirubin [Mass/Vol] 0.7 mg/dL Normal 0.2-1.0 [facility] Comment on above: Performed By: #### T ZENAIDA, FT3 #### [facility] [address] [place] [address] Dr. Glenny Sneed Globulin (S) [Mass/Vol] 4.0 g/dL Normal [facility] Comment on above: Performed By: #### T ZENAIDA, FT3 #### [facility] [address] [place] [address] Dr. Glenny Sneed Protein [Mass/Vol] 7.9 g/dL Normal 6.4-8.2 [facility] Comment on above: Performed By: #### T ZENAIDA, FT3 #### [facility] [address] [place] [address] Dr. Glenny Sneed SGOTon 01-23-2022 AST [Catalytic activity/Vol] 41 U/L Critically high 15-37 [facility] Comment on above: Performed By: #### T SH, FT3 #### [facility] [address] [place] [address] Dr. Glenny Sneed SGPTon 01-23-2022 ALT [Catalytic activity/Vol] 85 U/L Critically high 14-59 [facility] Comment on above: Performed By: #### T SH, FT3 #### [facility] [address] [place] [address] Dr. Glenny Sneed LIPID PROFILEon 01-07-2022 CHOL-HDL RATIO NORM SEE BELOW Normal [facility] Comment on above: Result Comment: 3.3 - 4.4 LOW RISK 4.4 - 7.1 AVERAGE RISK 7.1 - 11.0 MODERATE RISK >11.0 HIGH RISK Performed By: #### T SH, FT3 #### [facility] [address] [place] [address] Dr. Glenny Sneed Cholesterol [Mass/Vol] 144 mg/dL Normal <=200 [facility] Comment on above: Performed By: #### T SH, FT3 #### [facility] [address] [place] [address] Dr. Glenny Sneed Cholesterol in HDL [Mass/Vol] 63 mg/dL Critically high 40-60 [facility] Comment on above: Performed By: #### T SH, FT3 #### [facility] [address] [place] [address] Dr. Glenny Sneed Cholesterol in LDL [Mass/Vol] 56.2 mg/dL Normal [facility] Comment on above: Performed By: #### T SH, FT3 #### [facility] [address] [place] [address] Dr. Glenny Sneed Cholesterol.total/Ch olesterol in HDL [Mass ratio] 2.3 {ratio} Normal [facility] Comment on above: Performed By: #### T SH, FT3 #### [facility] [address] [place] [address] Dr. Glenny Sneed HDL NORMAL > or = 60 mg/dl - LO W CARDIOVASCULAR RISK <40 mg/dl - HIGH CARDIOVASCULAR RISK Normal [facility] Comment on above: Performed By: #### T SH, FT3 #### [facility] [address] [place] [address] Dr. Glenny Sneed LDL CALC NORMAL SEE BELOW Normal [facility] Comment on above: Result Comment: <100 mg/dl OPTIMAL 100 - 129 mg/dl NEAR OR ABOVE OPTIMAL 130 - 159 mg/dl BORDERLINE HIGH 160 - 189 mg/dl HIGH >190 mg/dl VERY HIGH Performed By: #### T SH, FT3 #### [facility] [address] [place] [address] Dr. Glenny Sneed Triglyceride [Mass/Vol] 124 mg/dL Normal <=150 [facility] Comment on above: Performed By: #### T ZENAIDA, FT3 #### [facility] [address] [place] [address] Dr. Glenny Sneed VLDL CALC 24.8 mg/dL Normal [facility] Comment on above: Performed By: #### T SH, FT3 #### [facility] [address] [place] [address] Dr. Glenny Holden 01-07-2022 AST [Catalytic activity/Vol] 53 U/L Critically high 15-37 [facility] Comment on above: Performed By: #### T ZENAIDA, FT3 #### [facility] [address] [place] [address] Dr. Glenny Sneed SGPTon 01-07-2022 ALT [Catalytic activity/Vol] 108 U/L Critically high 14-59 [facility] Comment on above: Performed By: #### T ZENAIDA, FT3 #### [facility] [address] [place] [address] Dr. Glenny Sneed Vital Signs Date Time Vital Sign Value Performing Clinician Faci lity 04-28-2025 15:52-0400 Body height 154.9 cm Chaz Todd Nelson Work Phone: [facility] 08-07-2025 15:52-0400 Body mass index (BMI) [Ratio] 30.04 kg/m2 Chaz Todd DPM Work Phone: [facility] 04-28-2025 15:52-0400 Body weight 72.12 kg Chaz Todd DPM Work Phone: [facility] 04-28-2025 15:52-0400 Respiratory rate 16 /min Chaz Todd DPM Work Phone: [facility] 04-13-2025 10:40-0400 Body mass index (BMI) [Ratio] 30.08 kg/m2 Pamela Tavohholz PHYSICIAN GENERAL PRACTICE Work Phone: [facility] 04-13-2025 10:40-0400 Body temperature 97.5 [degF] Pamela Aichholz PHYSICIAN GENERAL PRACTICE Work Phone: [facility] 04-13-2025 10:40-0400 Body weight 72.21 kg Pamela Aichholz PHYSICIAN GENERAL PRACTICE Work Phone: [facility] 04-13-2025 10:40-0400 Diastolic blood pressure 68 mm[Hg] Pamela Aichholz PHYSICIAN GENERAL PRACTICE Work Phone: [facility] 04-13-2025 10:40-0400 Heart rate 62 /min Pamela Aichholz PHYSICIAN GENERAL PRACTICE Work Phone: [facility] 04-13-2025 10:40-0400 Respiratory rate 20 /min Pamela Aichholz PHYSICIAN GENERAL PRACTICE Work Phone: [facility] 04-13-2025 10:40-0400 SaO2% (BldA) [Mass fraction] 98 % Pamela Aichholz PHYSICIAN GENERAL PRACTICE Work Phone: [facility] 04-13-2025 10:40-0400 Systolic blood pressure 172 mm[Hg] Pamela Aichholz PHYSICIAN GENERAL PRACTICE Work Phone: [facility] 01-12-2025 09:50-0400 Body mass index (BMI) [Ratio] 29.85 kg/m2 Pamela Aichholz PHYSICIAN GENERAL PRACTICE Work Phone: [facility] 01-12-2025 09:50-0400 Body temperature 98.29 [degF] Pamela Aichholz PHYSICIAN GENERAL PRACTICE Work Phone: [facility] 01-12-2025 09:50-0400 Body weight 71.67 kg Pamela Aichholz PHYSICIAN GENERAL PRACTICE Work Phone: [facility] 01-12-2025 09:50-0400 Diastolic blood pressure 70 mm[Hg] Pamela Aichholz PHYSICIAN GENERAL PRACTICE Work Phone: [facility] 01-12-2025 09:50-0400 Heart rate 62 /min Pamela Aichholz PHYSICIAN GENERAL PRACTICE Work Phone: [facility] 01-12-2025 09:50-0400 Respiratory rate 18 /min Pamela Aichholz PHYSICIAN GENERAL PRACTICE Work Phone: [facility] 01-12-2025 09:50-0400 SaO2% (BldA) [Mass fraction] 98 % Pamela Aichholz PHYSICIAN GENERAL PRACTICE Work Phone: [facility] 01-12-2025 09:50-0400 Systolic blood pressure 160 mm[Hg] Pamela Aichholz PHYSICIAN GENERAL PRACTICE Work Phone: [facility] 10-13-2024 10:14-0500 Diastolic blood pressure 60 mm[Hg] Pamela Aichholz PHYSICIAN GENERAL PRACTICE Work Phone: [facility] 10-13-2024 10:14-0500 Systolic blood pressure 162 mm[Hg] Pamela Aichholz PHYSICIAN GENERAL PRACTICE Work Phone: [facility] 10-13-2024 09:42-0500 Body height 154.9 cm Pamela Aichholz PHYSICIAN GENERAL PRACTICE Work Phone: [facility] 10-13-2024 09:42-0500 Body mass index (BMI) [Ratio] 29.82 kg/m2 Pamela Aichholz PHYSICIAN GENERAL PRACTICE Work Phone: [facility] 10-13-2024 09:42-0500 Body weight 71.58 kg Pamela Aichholz PHYSICIAN GENERAL PRACTICE Work Phone: [facility] 10-13-2024 09:42-0500 Heart rate 66 /min Pamela Tavohholz PHYSICIAN GENERAL PRACTICE Work Phone: [facility] 10-13-2024 09:42-0500 Respiratory rate 18 /min Pamela Aichholz PHYSICIAN GENERAL PRACTICE Work Phone: [facility] 10-13-2024 09:42-0500 SaO2% (BldA) [Mass fraction] 99 % Pamela Tavohholz PHYSICIAN GENERAL PRACTICE Work Phone: [facility] 08-18-2024 10:06-0500 Diastolic blood pressure 70 mm[Hg] Pamela Aichholz PHYSICIAN GENERAL PRACTICE Work Phone: [facility] 08-18-2024 10:06-0500 Systolic blood pressure 154 mm[Hg] Pamela Aichholz PHYSICIAN GENERAL PRACTICE Work Phone: [facility] 08-18-2024 09:48-0500 Body height 154.9 cm Pamela Tavohholz PHYSICIAN GENERAL PRACTICE Work Phone: [facility] 08-18-2024 09:48-0500 Body mass index (BMI) [Ratio] 30.08 kg/m2 Pamela Aichholz PHYSICIAN GENERAL PRACTICE Work Phone: [facility] 08-18-2024 09:48-0500 Body temperature 97.81 [degF] Pamela Tavohholz PHYSICIAN GENERAL PRACTICE Work Phone: [facility] 08-18-2024 09:48-0500 Body weight 72.21 kg Pamela Tavohholz PHYSICIAN GENERAL PRACTICE Work Phone: [facility] 08-18-2024 09:48-0500 Heart rate 59 /min Pamela Aichholz PHYSICIAN GENERAL PRACTICE Work Phone: [facility] 08-18-2024 09:48-0500 Respiratory rate 19 /min Pamela Aichholz PHYSICIAN GENERAL PRACTICE Work Phone: [facility] 08-18-2024 09:48-0500 SaO2% (BldA) [Mass fraction] 99 % Pamela Aichholz PHYSICIAN GENERAL PRACTICE Work Phone: [facility] 07-07-2024 10:27-0400 Body height 154.9 cm Pamela Langleyz PHYSICIAN GENERAL PRACTICE Work Phone: [facility] 07-07-2024 10:27-0400 Body mass index (BMI) [Ratio] 29.97 kg/m2 Pamelamaria elena Camachoholz PHYSICIAN GENERAL PRACTICE Work Phone: [facility] 07-07-2024 10:27-0400 Body temperature 98.49 [degF] Pamela Dougholz PHYSICIAN GENERAL PRACTICE Work Phone: [facility] 07-07-2024 10:27-0400 Body weight 71.94 kg Pamela Langleyz PHYSICIAN GENERAL PRACTICE Work Phone: [facility] 07-07-2024 10:27-0400 Diastolic blood pressure 62 mm[Hg] Pamela Korinz PHYSICIAN GENERAL PRACTICE Work Phone: [facility] 07-07-2024 10:27-0400 Heart rate 64 /min Pamela Korinz PHYSICIAN GENERAL PRACTICE Work Phone: [facility] 07-07-2024 10:27-0400 Respiratory rate 20 /min Pamela Dougholz PHYSICIAN GENERAL PRACTICE Work Phone: [facility] 07-07-2024 10:27-0400 SaO2% (BldA) [Mass fraction] 98 % Pamela Korinz PHYSICIAN GENERAL PRACTICE Work Phone: [facility] 07-07-2024 10:27-0400 Systolic blood pressure 142 mm[Hg] Pamela Langleyz PHYSICIAN GENERAL PRACTICE Work Phone: [facility] 06-10-2024 09:22-0400 Body mass index (BMI) [Ratio] 29.7 kg/m2 Pamela Dougholz PHYSICIAN GENERAL PRACTICE Work Phone: [facility] 06-10-2024 09:22-0400 Body temperature 98.49 [degF] Pamela Dougholz PHYSICIAN GENERAL PRACTICE Work Phone: [facility] 06-10-2024 09:22-0400 Body weight 71.31 kg Pamela Dougholz PHYSICIAN GENERAL PRACTICE Work Phone: [facility] 06-10-2024 09:22-0400 Diastolic blood pressure 78 mm[Hg] Pamela Aichholz PHYSICIAN GENERAL PRACTICE Work Phone: [facility] 06-10-2024 09:22-0400 Heart rate 59 /min Pamela Aichholz PHYSICIAN GENERAL PRACTICE Work Phone: [facility] 06-10-2024 09:22-0400 SaO2% (BldA) [Mass fraction] 99 % Pamela Aichholz PHYSICIAN GENERAL PRACTICE Work Phone: [facility] 06-10-2024 09:22-0400 Systolic blood pressure 152 mm[Hg] Pamela Aichholz PHYSICIAN GENERAL PRACTICE Work Phone: [facility] 11-05-2023 09:44-0500 Body height 154.9 cm Pamela Aichholz PHYSICIAN GENERAL PRACTICE Work Phone: [facility] 11-05-2023 09:44-0500 Body mass index (BMI) [Ratio] 30 kg/m2 Pamela Aichholz PHYSICIAN GENERAL PRACTICE Work Phone: [facility] 11-05-2023 09:44-0500 Body temperature 97.5 [degF] Pamela Tavohholz PHYSICIAN GENERAL PRACTICE Work Phone: [facility] 11-05-2023 09:44-0500 Body weight 72.03 kg Pamela Aichholz PHYSICIAN GENERAL PRACTICE Work Phone: [facility] 11-05-2023 09:44-0500 Diastolic blood pressure 68 mm[Hg] Pamela Aichholz PHYSICIAN GENERAL PRACTICE Work Phone: [facility] 11-05-2023 09:44-0500 Heart rate 61 /min Pamela Aichholz PHYSICIAN GENERAL PRACTICE Work Phone: [facility] 11-05-2023 09:44-0500 Respiratory rate 18 /min Pamela Aichholz PHYSICIAN GENERAL PRACTICE Work Phone: [facility] 11-05-2023 09:44-0500 SaO2% (BldA) [Mass fraction] 98 % Pamela Moore PHYSICIAN GENERAL PRACTICE Work Phone: [facility] 11-05-2023 09:44-0500 Systolic blood pressure 138 mm[Hg] Pamela Moore PHYSICIAN GENERAL PRACTICE Work Phone: [facility] Encounters Encounter Date Encounter Type Care Provider Facility Start: 05-10-2025 End: 05-10-2025 Refill Pamela Moore PHYSICIAN GENERAL PRACTICE Work Phone: [facility] Comment on above: Hypothyroidism (acqu ired) Start: 05-06-2025 End: 05-06-2025 Orders Only Pamela Moore PHYSICIAN GENERAL PRACTICE Work Phone: [facility] Comment on above: Elevated serum prote in level (Primary Dx); Hypercalcemia; Thrombocytosis Start: 05-03-2025 End: 05-03-2025 Clinisync Result Encounter Pamela Moore PHYSICIAN GENERAL PRACTICE Work Phone: [facility] External Department Unsolicited Start: 05-03-2025 End: 05-03-2025 Clinisync Result Encounter Pamela Moore PHYSICIAN GENERAL PRACTICE Work Phone: [facility] External Department Unsolicited Start: 04-28-2025 End: 04-28-2025 Office outpatient new 30 minutes Chaz Todd DPM Work Phone: [facility] Comment on above: Tinea pedis of both feet (Primary Dx); Onychomycosis; Pain due to onychomycosis of toenails of both feet; Neoplasm of uncertain behavior of skin; Verruca plantaris; Foot pain, right Start: 04-28-2025 End: 04-28-2025 ambulatory CHAZ TODD Not Available Start: 04-28-2025 End: 04-28-2025 Bamboo flowsheet Chaz Todd DPM Work Phone: [facility] Start: 04-28-2025 End: 04-28-2025 Bamboo flowsheet Chaz Todd DPM Work Phone: [facility] Start: 04-21-2025 End: 04-21-2025 Orders Only Pamela Moore PHYSICIAN GENERAL PRACTICE Work Phone: [facility] Comment on above: Gastroesophageal ref lux disease, unspecified whether esophagitis present (Primary Dx); Elevated liver function tests; Diverticulosis of large intestine without hemorrhage; Black stools Start: 04-13-2025 End: 04-13-2025 Bamboo flowsheet Pamela Moore PHYSICIAN GENERAL PRACTICE Work Phone: [facility] Start: 04-13-2025 End: 04-13-2025 Bamboo flowsheet Pamela Moore PHYSICIAN GENERAL PRACTICE Work Phone: [facility] Start: 04-13-2025 End: 04-13-2025 Patient encounter procedure Pamela Moore PHYSICIAN GENERAL PRACTICE Work Phone: [facility] Comment on above: Encounter for subseq uent [...] Onychomycosis Start: 04-13-2025 End: 04-13-2025 ambulatory PAMELA MOORE Not Available Start: 04-07-2025 End: 04-07-2025 Office outpatient visit 15 minutes Long Bolivar OD Work Phone: [facility] Comment on above: Age-related nuclear cataract of both eyes (Primary Dx); Posterior vitreous detachment, bilateral; Infection of eyelash follicle of right eye Start: 04-07-2025 End: 04-07-2025 ambulatory LONG BOLIVAR [facility] Start: 02-09-2025 End: 02-09-2025 Refill Pamela Moore PHYSICIAN GENERAL PRACTICE Work Phone: [facility] Comment on above: Hypothyroidism (acqu ired) ([facility]/HCC) Start: 01-12-2025 End: 01-12-2025 Bamboo flowsheet Pamela Moore PHYSICIAN GENERAL PRACTICE Work Phone: [facility] Start: 01-12-2025 End: 01-12-2025 Bamboo flowsheet Pamela Oscar PHYSICIAN GENERAL PRACTICE Work Phone: [facility] Start: 01-12-2025 End: 01-12-2025 Office outpatient visit 15 minutes Pamela Moore PHYSICIAN GENERAL PRACTICE Work Phone: [facility] Comment on above: Primary hypertension (CMS/HCC) (Primary Dx); Hypothyroidism (acquired) ([facility]); Allergic rhinitis, unspecified seasonality, unspecified trigger Start: 01-12-2025 End: 01-12-2025 ambulatory PAMELA OSCAR Not Available Start: 01-05-2025 End: 01-05-2025 Clinisync Result Encounter Pamela Oscar PHYSICIAN GENERAL PRACTICE Work Phone: [facility] External Department Unsolicited Start: 01-05-2025 End: 01-05-2025 Clinisync Result Encounter Pamela Oscar PHYSICIAN GENERAL PRACTICE Work Phone: [facility] External Department Unsolicited Start: 01-03-2025 End: 01-03-2025 Refill Pamela Oscar PHYSICIAN GENERAL PRACTICE Work Phone: [facility] Comment on above: Age related osteopor osis, unspecified pathological fracture presence ([facility]); Hyperlipidemia, unspecified ([facility]) Start: 12-24-2024 End: 12-24-2024 Clinisync Result Encounter Pamela Korinz PHYSICIAN GENERAL PRACTICE Work Phone: [facility] External Department Unsolicited Start: 12-24-2024 End: 12-24-2024 Clinisync Result Encounter Pamela Korinz PHYSICIAN GENERAL PRACTICE Work Phone: [facility] External Department Unsolicited Start: 10-13-2024 End: 10-13-2024 Bamboo flowsheet Pamela Oscar PHYSICIAN GENERAL PRACTICE Work Phone: [facility] Start: 10-13-2024 End: 10-13-2024 Bamboo flowsheet Pamela Votopher PHYSICIAN GENERAL PRACTICE Work Phone: [facility] Start: 10-13-2024 End: 10-13-2024 Office outpatient visit 25 minutes Pamela Oscar PHYSICIAN GENERAL PRACTICE Work Phone: [facility] Comment on above: Primary hypertension (CMS/HCC) (Primary Dx); Class 1 obesity due to excess calories without serious comorbidity with body mass index (BMI) of 30.0 to 30.9 in adult; Hypothyroidism (acquired) ([facility]); LORI (generalized anxiety disorder) ([facility]) Start: 10-13-2024 End: 10-13-2024 ambulatory PAMELA OSCAR Not Available Start: 10-11-2024 End: 10-11-2024 Clinisync Result Encounter Pamela Votopher PHYSICIAN GENERAL PRACTICE Work Phone: [facility] External Department Unsolicited Start: 10-11-2024 End: 10-11-2024 Clinisync Result Encounter Pamela Camachosharda PHYSICIAN GENERAL PRACTICE Work Phone: [facility] External Department Unsolicited Start: 10-04-2024 End: 10-04-2024 Orders Only Pamela Oscar PHYSICIAN GENERAL PRACTICE Work Phone: [facility] Comment on above: Hypothyroidism (acqu ired) (CMS/HCC) (Primary Dx) Start: 08-30-2024 End: 08-30-2024 Clinisync Result Encounter Pamela Oscar PHYSICIAN GENERAL PRACTICE Work Phone: [facility] External Department Unsolicited Start: 08-30-2024 End: 08-30-2024 Clinisync Result Encounter Pamela Oscar PHYSICIAN GENERAL PRACTICE Work Phone: [facility] External Department Unsolicited Start: 08-25-2024 End: 08-25-2024 Refill Pamela Oscar PHYSICIAN GENERAL PRACTICE Work Phone: [facility] Comment on above: Allergic rhinitis, u nspecified seasonality, unspecified trigger (Primary Dx); Acute bronchitis, unspecified; Age related osteoporosis, unspecified pathological fracture presence (CMS/HCC) Start: 08-18-2024 End: 08-18-2024 Bamboo flowsheet Pamela Moore PHYSICIAN GENERAL PRACTICE Work Phone: [facility] Start: 08-18-2024 End: 08-18-2024 Bamboo flowsheet Pamela Moore PHYSICIAN GENERAL PRACTICE Work Phone: [facility] Start: 08-18-2024 End: 08-18-2024 Clinisync Result Encounter Pamela Moore PHYSICIAN GENERAL PRACTICE Work Phone: [facility] External Department Unsolicited Start: 08-18-2024 End: 08-18-2024 Office outpatient visit 15 minutes Pamela Moore PHYSICIAN GENERAL PRACTICE Work Phone: [facility] Comment on above: Primary hypertension (CMS/HCC) (Primary Dx); Pelvic pain; Gastroesophageal reflux disease, unspecified whether esophagitis present; Obesity (BMI 30-39.9); Vitamin D deficiency; Class 1 obesity due to excess calories without serious comorbidity with body mass index (BMI) of 30.0 to 30.9 in adult Start: 08-18-2024 End: 08-18-2024 Orders Only Pamela Moore PHYSICIAN GENERAL PRACTICE Work Phone: [facility] Comment on above: Hyperglycemia (Prima ry Dx) Start: 07-13-2024 End: 07-13-2024 Refill Pamela Moore PHYSICIAN GENERAL PRACTICE Work Phone: [facility] Comment on above: Hypothyroidism (acqu ired) (CMS/HCC) (Primary Dx) Start: 07-07-2024 End: 07-07-2024 Bamboo flowsheet Pamela Moore PHYSICIAN GENERAL PRACTICE Work Phone: [facility] Start: 07-07-2024 End: 07-13-2024 Bamboo flowsheet Pamela Moore PHYSICIAN GENERAL PRACTICE Work Phone: [facility] Start: 07-07-2024 End: 07-13-2024 Clinisync Result Encounter Pamela Camachosharda PHYSICIAN GENERAL PRACTICE Work Phone: [facility] External Department Unsolicited Start: 07-07-2024 End: 07-09-2024 External Result Encounter Pamela Camachosharda PHYSICIAN GENERAL PRACTICE Work Phone: [facility] External Department Unsolicited Start: 07-07-2024 End: 07-07-2024 Office outpatient visit 25 minutes Pamela Oscar PHYSICIAN GENERAL PRACTICE Work Phone: [facility] Comment on above: Encounter for well w kathy exam with routine gynecological exam (Primary Dx); Hypothyroidism (acquired) (CMS/HCC); Vaginal discharge; Pelvic pain Start: 07-07-2024 End: 07-07-2024 Patient encounter procedure Pamela Oscar PHYSICIAN GENERAL PRACTICE Work Phone: [facility] Healthcare Start: 07-07-2024 End: 07-07-2024 ambulatory PAMELAMaria Elena MOORE Not Available Start: 06-24-2024 End: 06-25-2024 Refill Pamela Oscar PHYSICIAN GENERAL PRACTICE Work Phone: [facility] Comment on above: Hyperlipidemia, unsp ecified (CMS/HCC) Start: 06-10-2024 End: 06-10-2024 Bamboo flowsheet Pamela Oscar PHYSICIAN GENERAL PRACTICE Work Phone: [facility] Start: 06-10-2024 End: 06-10-2024 Bamboo flowsheet Pamela Oscar PHYSICIAN GENERAL PRACTICE Work Phone: [facility] Start: 06-10-2024 End: 06-10-2024 Office outpatient visit 25 minutes Pamela Moore PHYSICIAN GENERAL PRACTICE Work Phone: [facility] Comment on above: Primary hypertension (CMS/HCC) (Primary Dx); Gastroesophageal reflux disease, unspecified whether esophagitis present; Vitamin D deficiency; Pre-diabetes; Hypothyroidism (acquired) (CMS/HCC); Mixed hyperlipidemia (CMS/HCC) Start: 06-10-2024 End: 06-10-2024 ambulatory PAMELA AICHHOLZ Not Available Start: 05-31-2024 End: 05-31-2024 Refill Pamela Oscar PHYSICIAN GENERAL PRACTICE Work Phone: [facility] Comment on above: Age related osteopor osis, unspecified pathological fracture presence (CMS/HCC) Start: 05-10-2024 End: 05-10-2024 ambulatory PAMELA OSCAR Not Available Start: 04-29-2024 End: 04-29-2024 ambulatory MD Jorge Goncalves Work Phone: [facility] Work Phone: Start: 04-29-2024 End: 04-29-2024 Patient encounter procedure MD Jorge Goncalves Work Phone: [facility] Work Phone: Start: 04-29-2024 End: 04-29-2024 Patient encounter procedure MD Jorge Goncalves Work Phone: [facility] Start: 04-29-2024 End: 04-29-2024 ambulatory MD Jorge Goncalves Work Phone: [facility] Work Phone: Start: 04-14-2024 Patient encounter procedure Pamela Oscar PHYSICIAN GENERAL PRACTICE Work Phone: [facility] Start: 12-22-2023 End: 01-21-2024 ambulatory BRAXTON ESCALANTE [facility] Start: 12-15-2023 End: 12-22-2023 ambulatory PAMELA Reji MOORE [facility] Start: 12-11-2023 End: 12-11-2023 ambulatory MD Jorge Goncalves Work Phone: [facility] Work Phone: Start: 12-11-2023 End: 12-11-2023 Patient encounter procedure MD Jorge Goncalves Work Phone: [facility] Work Phone: Start: 11-05-2023 Bamboo flowsheet Pamela Aichholz PHYSICIAN GENERAL PRACTICE Work Phone: [facility] Start: 11-05-2023 Bamboo flowsheet Pamela Moore PHYSICIAN GENERAL PRACTICE Work Phone: [facility] Start: 11-05-2023 End: 11-05-2023 Office outpatient visit 25 minutes Pamela Moore PHYSICIAN GENERAL PRACTICE Work Phone: [facility] Comment on above: Gastroesophageal ref lux disease, unspecified whether esophagitis present (Primary Dx); Age related osteoporosis, unspecified pathological fracture presence (CMS/HCC); Vitamin D deficiency; Pre-diabetes; Hypothyroidism (acquired) (CMS/HCC); Mixed hyperlipidemia ([facility]); Encounter for screening mammogram for malignant neoplasm of breast; BMI 30.0-30.9,adult; Chronic left shoulder pain Start: 02-20-2023 [facility] Start: 01-03-2023 End: 01-04-2023 ambulatory APPLICATIONS SYSTEM ANALYST PAMELA OSCAR Facility:[facility] Start: 12-16-2022 End: 12-17-2022 ambulatory APPLICATIONS SYSTEM ANALYST PAMELA OSCAR Facility:[facility] Start: 11-07-2022 End: 11-08-2022 ambulatory APPLICATIONS SYSTEM ANALYST PAMELA OSCAR Facility:[facility] Start: 05-08-2022 End: 05-09-2022 ambulatory APPLICATIONS SYSTEM ANALYST PAMELA OSCAR Facility:[facility] Start: 02-13-2022 End: 02-14-2022 ambulatory APPLICATIONS SYSTEM ANALYST PAMELA OSCAR Facility:[facility] Start: 01-23-2022 End: 01-24-2022 ambulatory APPLICATIONS SYSTEM ANALYST PAMELA OSCAR Facility:[facility] Start: 01-07-2022 End: 01-08-2022 ambulatory APPLICATIONS SYSTEM ANALYST PAMELA OSCAR Facility:[facility] Procedures Date Procedure Procedure Detail Performing Clinician Start: 05-03-2025 ALL CBC WITH AUTO DIFF Pamela Moore PHYSICIAN GENERAL PRACTICE Work Phone: Start: 04-13-2025 Hemoglobin glycosylated a1c Pamela Moore PHYSICIAN GENERAL PRACTICE Work Phone: Start: 01-05-2025 MM TOMOSYNTHESIS SCR EENING BI Pamela Moore PHYSICIAN GENERAL PRACTICE Work Phone: Start: 12-24-2024 ALL THYROID STIM HORMONE Pamela Moore PHYSICIAN GENERAL PRACTICE Work Phone: Start: 10-11-2024 ALL THYROID STIM HORMONE Pamela Moore PHYSICIAN GENERAL PRACTICE Work Phone: Start: 10-11-2024 ALL THYROXINE (T4) FREE Pamela Moore PHYSICIAN GENERAL PRACTICE Work Phone: Start: 08-30-2024 MLR HEMOGLOBIN A1C Pamela Moore PHYSICIAN GENERAL PRACTICE Work Phone: Start: 08-18-2024 TBH UA (CLEAN/CATCH) MICROSCOPIC IF INDICATE Pamela Moore PHYSICIAN GENERAL PRACTICE Work Phone: Start: 07-07-2024 IGP,APTIMA HPV,AGE GDLN Pamela Moore PHYSICIAN GENERAL PRACTICE Work Phone: Start: 07-07-2024 VAGINITIS (HTRX) Pamela youngsharda PHYSICIAN GENERAL PRACTICE Work Phone: Start: 04-29-2024 Plain X-ray of [...] Goncalves Work Phone: Start: 05-23-2021 Colonoscopy Pamela Harrington dora PHYSICIAN GENERAL PRACTICE Work Phone: Plan of Treatment Date Care Activity Detail Author Start: 05-23-2031 Screening for malignant neoplasm of colon [facility] Start: 04-20-2026 End: 04-20-2026 Patient encounter procedure 04/20/2026 10:00 AM EDT Office Visit [facility] [address] [place] [address] Pamela Moore, PHYSICIAN GENERAL PRACTICE [address] [place] [phone] [facility] Start: 04-13-2026 Medicare Annual Wellness (AWV) Medicare Annual Wellness (AWV) [facility] Start: 04-12-2026 End: 04-12-2026 Patient encounter procedure 04/12/2026 10:15 AM EDT Office Visit [facility] [address] [place] [address] Long Bolivar OD [address] [place] [address] [facility] Start: 04-07-2026 Tobacco Screening Tobacco Screening [facility] Start: 07-14-2025 End: 07-14-2025 Patient encounter procedure 07/14/2025 10:30 AM EDT Office Visit [facility] [address] [place] [address] Pamela Moore, MARIKA [address] [place] [id number] [facility] Start: 05-23-2025 Influenza vaccination Influenza Vaccine [facility] Start: 05-06-2025 End: 05-06-2026 25-hydroxyvitamin D3 [Mass/volume] in Serum or Plasma Vitamin D 25 hydroxy Lab Routine Hypercalcemia Expected: 05/06/2025 (Approximate), Expires: 05/06/2026 [facility] Work Phone: Comment on above: Expected: 05/06/2025 (Approximate), Expi res: 05/06/2026 Start: 05-06-2025 End: 05-06-2026 C reactive protein [Mass/volume] in Serum or Plasma C-reactive protein Lab Routine Elevated serum protein level Thrombocytosis Expected: 05/06/2025 (Approximate), Expires: 05/06/2026 [facility] Comment on above: Expected: 05/06/2025 (Approximate), Expi res: 05/06/2026 Start: 05-06-2025 End: 05-06-2026 CBC W Auto Differential panel - Blood CBC and differential Lab Routine Elevated serum protein level Thrombocytosis Expected: 05/06/2025 (Approximate), Expires: 05/06/2026 [facility] Comment on above: Expected: 05/06/2025 (Approximate), Expi res: 05/06/2026 Start: 05-06-2025 End: 05-06-2026 Comprehensive metabolic 2000 panel - Serum or Plasma Comprehensive metabolic panel Lab Routine Elevated serum protein level Thrombocytosis Expected: 05/06/2025 (Approximate), Expires: 05/06/2026 [facility] Comment on above: Expected: 05/06/2025 (Approximate), Expi res: 05/06/2026 Start: 05-06-2025 End: 05-06-2026 Erythrocyte sedimentation rate Sedimentation rate, automated Lab Routine Elevated serum protein level Thrombocytosis Expected: 05/06/2025 (Approximate), Expires: 05/06/2026 [facility] Comment on above: Expected: 05/06/2025 (Approximate), Expi res: 05/06/2026 Start: 05-06-2025 End: 05-06-2026 Parathyrin.intact [Mass/volume] in Serum or Plasma PTH, intact Lab Routine Hypercalcemia Expected: 05/06/2025 (Approximate), Expires: 05/06/2026 [facility] Comment on above: Expected: 05/06/2025 (Approximate), Expi res: 05/06/2026 Start: 05-06-2025 End: 05-06-2026 Peripheral blood smear Peripheral blood smear Pathology and Cytology Routine Elevated serum protein level Thrombocytosis Expected: 05/06/2025 (Approximate), Expires: 05/06/2026 [facility] Comment on above: Expected: 05/06/2025 (Approximate), Expi res: 05/06/2026 Start: 05-06-2025 End: 05-06-2026 Protein electrophoresis, serum Protein electrophoresis, serum Lab Routine Elevated serum protein level Thrombocytosis Expected: 05/06/2025 (Approximate), Expires: 05/06/2026 [facility] Comment on above: Expected: 05/06/2025 (Approximate), Expi res: 05/06/2026 Start: 05-06-2025 End: 05-06-2026 Protein electrophoresis, urine Protein electrophoresis, urine Lab Routine Elevated serum protein level Thrombocytosis Expected: 05/06/2025 (Approximate), Expires: 05/06/2026 [facility] Comment on above: Expected: 05/06/2025 (Approximate), Expi res: 05/06/2026 Start: 04-28-2025 End: 04-28-2025 Patient encounter procedure 04/28/2025 3:50 PM EDT Office Visit [facility] [address] [facility] [address] [place] [address] Chaz Todd DPM [address] [facility] [address] [place] [address] [facility] Start: 04-21-2025 End: 04-21-2026 CBC W Auto Differential panel - Blood CBC and differential Lab Routine Gastroesophageal reflux disease, unspecified whether esophagitis present Diverticulosis of large intestine without hemorrhage Black stools Expected: 04/21/2025 (Approximate), Expires: 04/21/2026 [facility] Work Phone: Comment on above: Expected: 04/21/2025 (Approximate), Expi res: 04/21/2026 Start: 04-21-2025 End: 04-21-2026 Comprehensive metabolic 2000 panel - Serum or Plasma Comprehensive metabolic panel Lab Routine Gastroesophageal reflux disease, unspecified whether esophagitis present Elevated liver function tests Diverticulosis of large intestine without hemorrhage Black stools Expected: 04/21/2025 (Approximate), Expires: 04/21/2026 [facility] Comment on above: Expected: 04/21/2025 (Approximate), Expi res: 04/21/2026 Start: 04-21-2025 End: 04-21-2026 Hemoglobin.gastrointestin al.lower [Presence] in Stool by Immunoassay Occult blood x 1, stool Lab Routine Gastroesophageal reflux disease, unspecified whether esophagitis present Diverticulosis of large intestine without hemorrhage Black stools Expected: 04/21/2025 (Approximate), Expires: 04/21/2026 [facility] Comment on above: Expected: 04/21/2025 (Approximate), Expi res: 04/21/2026 Start: 04-21-2025 End: 04-21-2026 Iron and Iron binding capacity panel - Serum or Plasma Iron level Lab Routine Gastroesophageal reflux disease, unspecified whether esophagitis present Diverticulosis of large intestine without hemorrhage Black stools Expected: 04/21/2025 (Approximate), Expires: 04/21/2026 [facility] Comment on above: Expected: 04/21/2025 (Approximate), Expi res: 04/21/2026 Start: 04-21-2025 End: 04-21-2026 Urinalysis complete panel - Urine Urinalysis with reflex microscopic (clean catch) Lab Routine Gastroesophageal reflux disease, unspecified whether esophagitis present Diverticulosis of large intestine without hemorrhage Black stools Expected: 04/21/2025 (Approximate), Expires: 04/21/2026 [facility] Comment on above: Expected: 04/21/2025 (Approximate), Expi res: 04/21/2026 Start: 04-14-2025 Medicare Annual Wellness (AWV) Medicare Annual Wellness (AWV) [facility] Start: 04-13-2025 End: 04-13-2025 Patient encounter procedure [facility] Comment on above: Primary hypertension (Primary [...] Start: 01-12-2025 End: 01-12-2025 Patient encounter procedure [facility] Comment on above: Primary hypertension (CMS/HCC) (Primary Dx); Hypothyroidism (acquired) (CMS/HCC); Allergic rhinitis, unspecified seasonality, unspecified trigger Start: 12-13-2024 End: 10-13-2025 Thyroxine (T4) free [Mass/volume] in Serum or Plasma T4, free Lab Routine Hypothyroidism (acquired) (CMS/HCC) Expected: 12/13/2024 (Approximate), Expires: 10/13/2025 [facility] Comment on above: Expected: 12/13/2024 (Approximate), Expi res: 10/13/2025 Start: 12-11-2024 End: 10-13-2025 Thyrotropin [Units/volume] in Serum or Plasma TSH Lab Routine Hypothyroidism (acquired) ([facility]) Expected: 12/11/2024 (Approximate), Expires: 10/13/2025 [facility] Work Phone: Comment on above: Expected: 12/11/2024 (Approximate), Expi res: 10/13/2025 Start: 10-13-2024 End: 10-13-2024 Patient encounter procedure [facility] Comment on above: Primary hypertension ([facility]) (Primary Dx); Class 1 obesity due to excess calories without serious comorbidity with body mass index (BMI) of 30.0 to 30.9 in adult; Hypothyroidism (acquired) ([facility]) Start: 10-04-2024 End: 10-04-2025 Thyrotropin [Units/volume] in Serum or Plasma TSH Lab Routine Hypothyroidism (acquired) ([facility]) Expected: 10/04/2024 (Approximate), Expires: 10/04/2025 [facility] [employer] Work Phone: Comment on above: Expected: 10/04/2024 (Approximate), Expi res: 10/04/2025 Start: 10-04-2024 End: 10-04-2025 Thyroxine (T4) free [Mass/volume] in Serum or Plasma T4, free Lab Routine Hypothyroidism (acquired) ([facility]) Expected: 10/04/2024 (Approximate), Expires: 10/04/2025 [facility] Comment on above: Expected: 10/04/2024 (Approximate), Expi res: 10/04/2025 Start: 09-09-2024 End: 09-09-2024 Patient encounter procedure 09/09/2024 9:00 AM EST Office Visit [facility] [address] [place] [address] Pameal Moore NP [address] [place] [address] [facility] Start: 08-18-2024 End: 08-18-2025 Hemoglobin A1c/Hemoglobin.total in Blood Hemoglobin A1c Lab Routine Hyperglycemia Expected: 08/18/2024 (Approximate), Expires: 08/18/2025 [facility] Work Phone: Comment on above: Expected: 08/18/2024 (Approximate), Expi res: 08/18/2025 Start: 08-18-2024 End: 08-18-2024 Patient encounter procedure [facility] Comment on above: Pelvic pain (Primary Dx); Primary hypertension (CMS/HCC); Gastroesophageal reflux disease, unspecified whether esophagitis present; Obesity (BMI 30-39.9) Start: 07-07-2024 End: 07-07-2025 THIN PREP TIS PAP AND HR HPV DNA THIN PREP TIS PAP AND HR HPV DNA Pathology and Cytology Routine Encounter for well woman exam with routine gynecological exam Expected: 07/07/2024 (Approximate), Expires: 07/07/2025 [facility] Work Phone: Comment on above: Expected: 07/07/2024 (Approximate), Expi res: 07/07/2025 Start: 07-07-2024 End: 07-07-2025 US Pelvis transvaginal US pelvis transvaginal Imaging Routine Pelvic pain Expected: 07/07/2024 (Approximate), Expires: 07/07/2025 [facility] Comment on above: Expected: 07/07/2024 (Approximate), Expi res: 07/07/2025 Start: 07-07-2024 End: 07-07-2025 VAGINITIS (HTRX) VAGINITIS (HTRX) Lab Routine Vaginal discharge Expected: 07/07/2024 (Approximate), Expires: 07/07/2025 [facility] Comment on above: Expected: 07/07/2024 (Approximate), Expi res: 07/07/2025 Start: 07-07-2024 End: 07-07-2024 Patient encounter procedure [facility] Comment on above: Hypothyroidism (acquired) (CMS/HCC) Start: 06-10-2024 End: 06-10-2025 25-hydroxyvitamin D3 [Mass/volume] in Serum or Plasma Vitamin D 25 hydroxy Lab Routine Mixed hyperlipidemia ([facility]/HCC) Expected: 06/10/2024 (Approximate), Expires: 06/10/2025 [facility] Comment on above: Expected: 06/10/2024 (Approximate), Expi res: 06/10/2025 Start: 06-10-2024 End: 06-10-2025 CBC W Auto Differential panel - Blood CBC and differential Lab Routine Gastroesophageal reflux disease, unspecified whether esophagitis present Expected: 06/10/2024 (Approximate), Expires: 06/10/2025 [facility] Work Phone: Comment on above: Expected: 06/10/2024 (Approximate), Expi res: 06/10/2025 Start: 06-10-2024 End: 06-10-2025 Comprehensive metabolic 2000 panel - Serum or Plasma Comprehensive metabolic panel Lab Routine Primary hypertension ([facility]) Vitamin D deficiency Pre-diabetes Hypothyroidism (acquired) ([facility]) Mixed hyperlipidemia ([facility]) Expected: 06/10/2024 (Approximate), Expires: 06/10/2025 [facility] Comment on above: Expected: 06/10/2024 (Approximate), Expi res: 06/10/2025 Start: 06-10-2024 End: 06-10-2025 Lipid 1996 panel - Serum or Plasma Lipid panel Lab Routine Mixed hyperlipidemia ([facility]) Expected: 06/10/2024 (Approximate), Expires: 06/10/2025 [facility] Comment on above: Expected: 06/10/2024 (Approximate), Expi res: 06/10/2025 Start: 06-10-2024 End: 06-10-2025 Thyrotropin [Units/volume] in Serum or Plasma TSH Lab Routine Hypothyroidism (acquired) ([facility]) Expected: 06/10/2024 (Approximate), Expires: 06/10/2025 [facility] Comment on above: Expected: 06/10/2024 (Approximate), Expi res: 06/10/2025 Start: 06-10-2024 End: 06-10-2025 Thyroxine (T4) free [Mass/volume] in Serum or Plasma T4, free Lab Routine Hypothyroidism (acquired) ([facility]/HCC) Expected: 06/10/2024 (Approximate), Expires: 06/10/2025 [facility] Comment on above: Expected: 06/10/2024 (Approximate), Expi res: 06/10/2025 Start: 06-10-2024 End: 06-10-2025 Triiodothyronine (T3) Free [Mass/volume] in Serum or Plasma T3, free Lab Routine Hypothyroidism (acquired) ([facility]/HCC) Expected: 06/10/2024 (Approximate), Expires: 06/10/2025 [facility] Comment on above: Expected: 06/10/2024 (Approximate), Expi res: 06/10/2025 Start: 06-10-2024 End: 06-10-2025 Urinalysis complete panel - Urine Urinalysis with reflex microscopic (clean catch) Lab Routine Primary hypertension ([facility]) Expected: 06/10/2024 (Approximate), Expires: 06/10/2025 [facility] Comment on above: Expected: 06/10/2024 (Approximate), Expi res: 06/10/2025 Start: 06-10-2024 End: 06-10-2024 [facility] Comment on above: Arrived Start: 05-23-2024 Influenza vaccination Influenza Vaccine [facility] Start: 05-08-2024 Medicare Annual Wellness (AWV) Medicare Annual Wellness (AWV) [facility] Start: 04-29-2024 Plain X-ray of right shoulder XR [facility] RT [facility] Start: 04-29-2024 XR Shoulder - right Views [facility] Start: 03-20-2024 Tobacco Screening Tobacco Screening [facility] Start: 03-08-2024 End: 03-08-2024 Patient encounter procedure 03/08/2024 9:40 AM EDT Office Visit [facility] [address] [place] [address] Pamela Moore NP [address] [place] [address] [facility] Start: 01-05-2024 End: 01-03-2025 MG Breast - bilateral Screening Bilateral screening mammogram Imaging Routine Encounter for screening mammogram for malignant neoplasm of breast Expected: 01/05/2024 (Approximate), Expires: 01/03/2025 [facility] Comment on above: Expected: 01/05/2024 (Approximate), Expi res: 01/03/2025 Start: 12-11-2023 Plain X-ray of left shoulder XR shoulder LT min 2V[facility] Start: 12-11-2023 XR Shoulder - left Views [facility] Start: 11-05-2023 End: 11-05-2024 25-hydroxyvitamin D3 [Mass/volume] in Serum or Plasma Vitamin D 25 hydroxy Lab Routine Vitamin D deficiency Expected: 11/05/2023 (Approximate), Expires: 11/05/2024 [facility] Comment on above: Expected: 11/05/2023 (Approximate), Expi res: 11/05/2024 Start: 11-05-2023 End: 11-05-2024 CBC W Auto Differential panel - Blood CBC and differential Lab Routine Gastroesophageal reflux disease, unspecified whether esophagitis present Expected: 11/05/2023 (Approximate), Expires: 11/05/2024 [facility] Work Phone: Comment on above: Expected: 11/05/2023 (Approximate), Expi res: 11/05/2024 Start: 11-05-2023 End: 11-05-2024 Comprehensive metabolic 2000 panel - Serum or Plasma Comprehensive metabolic panel Lab Routine Gastroesophageal reflux disease, unspecified whether esophagitis present Age related osteoporosis, unspecified pathological fracture presence (CMS/HCC) Vitamin D deficiency Pre-diabetes Mixed hyperlipidemia (CMS/HCC) Expected: 11/05/2023 (Approximate), Expires: 11/05/2024 [facility] Comment on above: Expected: 11/05/2023 (Approximate), Expi res: 11/05/2024 Start: 11-05-2023 End: 11-05-2024 DXA Skeletal system Views for bone density DEXA bone density Imaging Routine Age related osteoporosis, unspecified pathological fracture presence (CMS/HCC) Expected: 11/05/2023 (Approximate), Expires: 11/05/2024 [facility] Comment on above: Expected: 11/05/2023 (Approximate), Expi res: 11/05/2024 Start: 11-05-2023 End: 11-05-2024 Hemoglobin A1c measurement Hemoglobin A1c Lab Routine Pre-diabetes Expected: 11/05/2023 (Approximate), Expires: 11/05/2024 [facility] Comment on above: Expected: 11/05/2023 (Approximate), Expi res: 11/05/2024 Start: 11-05-2023 End: 11-05-2024 Lipid 1996 panel - Serum or Plasma Lipid panel Lab Routine Pre-diabetes Hypothyroidism (acquired) ([facility]) Mixed hyperlipidemia ([facility]) Expected: 11/05/2023 (Approximate), Expires: 11/05/2024 [facility] Comment on above: Expected: 11/05/2023 (Approximate), Expi res: 11/05/2024 Start: 11-05-2023 End: 11-05-2024 Microalbumin/Creatinine panel in random Urine Microalbumin / creatinine, urine ratio Lab Routine Pre-diabetes Expected: 11/05/2023 (Approximate), Expires: 11/05/2024 [facility] Comment on above: Expected: 11/05/2023 (Approximate), Expi res: 11/05/2024 Start: 11-05-2023 End: 11-05-2024 Urinalysis complete panel - Urine Urinalysis with reflex microscopic (clean catch) Lab Routine Pre-diabetes Expected: 11/05/2023 (Approximate), Expires: 11/05/2024 [facility] Comment on above: Expected: 11/05/2023 (Approximate), Expi res: 11/05/2024 Start: 11-05-2023 End: 11-05-2023 Patient encounter procedure 11/05/2023 9:40 AM EST Office Visit [facility] [address] [place] [address] Pamela Moore NP [address] [place] [address] Gastroesophageal reflux disease, unspecified whether esophagitis present (Primary Dx); Age related osteoporosis, unspecified pathological fracture presence (CMS/HCC); Vitamin D deficiency; Pre-diabetes; Hypothyroidism (acquired) (CMS/HCC); Mixed hyperlipidemia (CMS/HCC); Encounter for screening mammogram for malignant neoplasm of breast [facility] Comment on above: Gastroesophageal reflux disease, unspeci fied whether esophagitis present (Primary Dx); Age related osteoporosis, unspecified pathological fracture presence (CMS/HCC); Vitamin D deficiency; Pre-diabetes; Hypothyroidism (acquired) (CMS/HCC); Mixed hyperlipidemia (CMS/HCC); Encounter for screening mammogram for malignant neoplasm of breast Start: 05-23-2023 Influenza vaccination Influenza Vaccine (#1) [facility] Start: 2012 Fall Risk Screening Fall Risk Screening [facility] Start: 2012 Pneumococcal Vaccine: 65+ Years (1 - PCV) Pneumococcal Vaccine: 65+ Years (1 - PCV) [facility] Start: 1997 Administration of varicella zoster vaccine Zoster (Shingles) Vaccine (1 of 2) [facility] Start: 1966 DTaP,Tdap and Td Vaccines (1 - Tdap) DTaP,Tdap and Td Vaccines (1 - Tdap) [facility] Start: 1965 Adult BMI Screening Adult BMI Screening [facility] Start: 1959 Depression Screening Depression Screening [facility] Start: 1947 Screening for malignant neoplasm of colon [facility] Payers Date Payer Category Payer Self-pay [id number] 2021 Medicare (Managed Care) [employer] [id number] 2019 Medicare [id number] 2019 Medicare [facility] MED[facility] [id number] 1959 Unknown [id number] 1947 Unknown [id number] 2.16.840.1.535131.3.579.2. 593 1947 Unknown [id number] 2.16.840.1.258889.3.579.2. 593 1947 Unknown [id number] 2.16.840.1.690423.3.579.2. 593 1947 Unknown [id number] 2.16.840.1.442295.3.579.2. 593 1947 Unknown [id number] 2.16.840.1.331616.3.579.2. 593 1947 Unknown [id number] 2.16.840.1.403003.3.579.2. 593 1947 Unknown [id number] 2.16.840.1.397611.3.579.2. 593 1947 Unknown [id number] 2.16.840.1.157561.3.579.2. 718 1947 Unknown [id number] 2.16.840.1.466280.3.579.2. 1286 1947 Unknown [id number] 2.16.840.1.253088.3.579.2. 1286 1947 Unknown [id number] 2.16.840.1.079219.3.579.2. 1286 1947 Unknown [id number] 2.16.840.1.748628.3.579.2. 1259 1947 Unknown [id number] 2.16.840.1.049716.3.579.2. 1259 1947 Unknown [id number] 2.16.840.1.850435.3.579.2. 125 1947 Unknown [id number] 2.16.840.1.178438.3.579.2. 1259 1947 Unknown [id number] 2.16.840.1.781138.3.579.2. 125 1947 Unknown [id number] 2.16.840.1.396093.3.579.2. 1259 1947 Unknown [id number] 2.16.840.1.259904.3.579.2. 125 1947 Unknown [id number] 2.16.840.1.715980.3.579.2. 1259 Medicaid Medicaid [id number] Medicare Medicare [id number] Unknown [id number] 2.16.840.1.510315.3.579.2. 531 Unknown [id number] 2.16840.1.209380.3.579.2. 531 Worker's Compensation [id number] Social History Date Type Detail Facility Start: 01-31-2023 End: 03-20-2023 Tobacco smoking status MAIS Never smoked tobacco [facility] Start: 01-31-2023 End: 03-20-2023 Tobacco use and exposure Smokeless tobacco non-user [facility] Start: 11-05-2023 End: 04-28-2025 Alcohol intake Ex-drinker (finding) [facility] Start: 09-17-2023 End: 04-13-2025 History of Social function [facility] Start: 09-17-2023 End: 04-13-2025 Tobacco use panel [facility] Start: 03-15-2023 Alcohol Comment Caffeine Intak e: more then 4 cups/day [facility] Start: 1945 Sex Assigned At Not on file [facility] Start: 1945 Sex Assigned At Female F [facility] Start: 04-01-2024 End: 04-07-2025 Alcoholic beverage intake Lifetime non-drinker (finding) [facility]care [facility] Start: 04-27-2015 Sex Female (finding) [facility] Functional Status Date Assessment Result Facility 04-13-2025 Patient Health Quest ionnaire 2 item (PHQ-2) [Reported] [facility] Clinical Notes 11-05-2023 to 04-28-2025 Chaz Todd, EUGENE - 04/28/2025 3:50 PM Zhane Moore NP - 04/13/2025 12:51 PM Zhane Moore NP - 04/13/2025 12:50 PM Zhane Moore NP - 04/13/2025 11:31 AM EDTPatient Instructions Note Date & Type Note Facility 04-28-2025 History of Presen t illness Narrative Patient: Bernard Ponce : 1945 PCP: Jorge Goncalves MD SUBJECTIVE This is a 79 y.o. female that presents today with a CC of elongated, thick nails. Pt states nails have been elongated and thick for many years and cause pain with ambulation in shoegear. Pt has tried previous treatment with minimal relief. Pt presents today for nail care and treatment. Pt also presents today of complaints of itching to feet and toes. They state they have tried treatments of none with no relief. Patient also presents today with complaints of painful lesion to her right foot that is been painful for the past year and has tried to remove on her own with minimal improvement Allergies: Allergies Allergen Reactions Ampicillin Hives Past Medical History: Past Medical History: Diagnosis Date Allergic rhinitis [...] finger of right hand Vitamin D deficiency Medications: Current Outpatient Medications: albuterol HFA 90 mcg/act inhaler, Inhale 2 puffs every 6 (six) hours if needed for shortness of breath or wheezing, Disp: 18 g, Rfl: 1 alendronate (Fosamax) 70 MG tablet, Take 1 tablet (70 mg) by mouth every 7 (seven) days, Disp: 12 tablet, Rfl: 1 atorvastatin (Lipitor) 20 MG tablet, Take 1 tablet (20 mg) by mouth at bedtime, Disp: 90 tablet, Rfl: 1 benzonatate (Tessalon) 100 MG capsule, Take 100 mg by mouth 3 (three) times a day as needed., Disp: , Rfl: biotin 1 MG capsule, Take by mouth, Disp: , Rfl: cholecalciferol (Vitamin D-3) 50 MCG (2000 UT) tablet, Take 2,000 Units by mouth Daily, Disp: , Rfl: fluticasone (Flonase) 50 MCG/ACT nasal spray, Administer 2 sprays into each nostril Daily, Disp: 16 g, Rfl: 3 folic acid (Folvite) 1 MG tablet, Take 1 mg by mouth in the morning., Disp: , Rfl: levothyroxine (Synthroid, Levoxyl) 50 MCG tablet, Take 1 tablet (50 mcg) by mouth in the morning. Take before meals., Disp: 90 tablet, Rfl: 0 loratadine (Claritin Reditabs) 10 MG disintegrating tablet, Take 10 mg by mouth Daily Pt taking OTC allergy relief 24hr 1 daily, Disp: , Rfl: Multiple Vitamin (MULTIVITAMIN ADULT PO), Multivitamin, Disp: , Rfl: omega-3 (fish oil) 1000 MG capsule, Take 1 capsule by mouth 1 (one) time each day at the same time., Disp: , Rfl: Social History: Social History Socioeconomic History Marital status: Unmarried Spouse name: Not on file Number of children: Not on file Years of education: Not on file Highest education level: Not on file Occupational History Not on file Tobacco Use Smoking status: Never Smokeless tobacco: Never Substance and Sexual Activity Alcohol use: Not Currently Comment: Caffeine Intake: more then 4 cups/day Drug use: Not on file Sexual activity: Not on file Other Topics Concern Not on file Social History Narrative Not on file Social Drivers of Health Financial Resource Strain: Not on file Food Insecurity: Not on file Transportation Needs: Not on file Physical Activity: Not on file Stress: Not on file Social Connections: Not on file Intimate Partner Violence: Not on file Housing Stability: Not on file ROS: General: denies fever, chills, fatigue, malaise Gastrointestinal: denies abdominal pain, ulcers, or changes in appetite or bowel habits Musculoskeletal: positive history of generalized arthritis with knee replacement in past Cardiovascular: denies CP, palpitations, irregular rhythms OBJECTIVE LE EXAM: DERM: Elongated thick yellow crumbly nails digits 1 through 10. Positive hair growth b/l feet. Nummular lesion measuring at the right sub 5th metatarsal measuring 0.4 cm x 0.4 cm. Notable peeling dry skin to moccasin distribution bilaterally VASC: Positive palpable pedal pulses bilaterally NEURO: Gross sensation intact to bilateral feet ORTHO: Positive pain on palpation to toenails of the left 1,2,3,4,5 toes and right 1,2,3,4,5 toes Positive pain on palpation to right foot lesion ASSESSMENT 1. Pain due to onychomycosis of toenails of both feet 2. Onychomycosis 3. Tinea pedis of both feet 4. Neoplasm of uncertain behavior of skin 5. Verruca plantaris 6. Foot pain, right PLAN Discussed proper foot care with patient today. Debride nails in length and thickness digits 1 through 10 Discussed condition in detail with patient today and discussed conservative treatments and possible excisional biopsy of lesion in the future for pathological diagnosis of specimen. Patient may take [id number] NSAID p.r.n. for pain Application of salinocaine acid medication to lesion/lesions located at right foot Informed pt of risks and benefits of procedure including high reoccurence rate, infection, pain and consent given. Application of DSD post procedure. Patient education concerning tinea infection. Discussed use of antifungal cream and foot powders as well as good foot hygiene and prevention measures. Patient was given a prescription today for antifungal. Chaz Todd DPM documented in this encounter [facility] 04-13-2025 History of Presen t illness Narrative Associated Problem(s): LORI (generalized anxiety disorder) Declines meds for this Also offered counseling, at this time she has declined She will see about talking with her community advocate about this Associated Problem(s): Onychomycosis Would like [...] were not included. Bernard Ponce is a 79 y.o. female presents [...] She will see about talking with her community advocate about this Class 1 obesity due to [...] A1c 6.2% 04/13/25 Associated Problem(s): Osteoporosis DEXA: 01/13 -1.6 left FA On fosamax Associated Problem(s): [...] this as well documented in this encounter [facility] 04-13-2025 Instructions Pamela Moore NP - 04/13/2025 10:30 AM EDT Diverticulitis: soft diet for next day of so, take atb, if worsening in pain to to ER I would like you to go see someone for counseling documented in this encounter [facility] 04-07-2025 History of Presen t illness Narrative Bernard Ponce 1945 Chief Complaint: Bernard Ponce had concerns including Blurred Vision. HPI [...] 11:05 AM Additional Tests Keratometry (Automated) K1 Sparks K2 Sparks Right 43.75 059 45.00 149 Left 43.75 [...] Normal Normal Refraction Wearing Rx Sphere Cylinder Sparks Right -2.50 +1.25 159 Left -3.50 +1.25 022 Age: 3yr Type: SVL Wearing Rx #2 Sphere Cylinder Sparks Right -2.50 +1.00 161 Left -3.50 +1.25 030 Age: 3yr Type: SVL Manifest Refraction (Auto) Sphere Cylinder Sparks Right -2.50 +1.25 150 Left -3.25 +1.00 [...] Castro 04/07/25 1125 documented in this encounter [facility] 01-12-2025 History of Presen t illness Narrative 143/63 53 Pt would like to discuss a constant hunger- she is often bored and thinks about food. Pt is unsure that maybe she needs to include more protein in her diet Knees, calfs, feet hurts after standing about 10-15 min. Images from the original note were not included. Bernard Ponce is a 79 y.o. female presents [...] antihistamine and flonase nasal spray Hypothyroidism (acquired) ([facility]) Currently taking levothyroxine Check labs yearly , prn dose changes or changes in sxs Primary hypertension ([facility]) - Primary Please check blood pressure daily and record DASH diet Limit caffeine Contact office if chest pain, pressure, dizziness, shortness of breath, swelling legs Home readings low 140/60's Associated Problem(s): Allergic rhinitis Is prescribed oral antihistamine and flonase nasal spray Associated Problem(s): Hypothyroidism (acquired) ([facility]) Currently taking levothyroxine Check labs yearly , prn dose changes or changes in sxs Associated Problem(s): Primary hypertension ([facility]/HCC) Please check blood pressure daily and record DASH diet Limit caffeine Contact office if chest pain, pressure, dizziness, shortness of breath, swelling legs Home readings low 140/60's documented in this encounter [facility] 10-13-2024 History of Presen t illness Narrative Associated Problem(s): LORI (generalized anxiety disorder) ([facility]/HCC) Will be referred to counseling: [facility] LORI 7 score= 1, 10/14/24 PHQ 9 [...] follow-ups on file. Associated Problem(s): Hypothyroidism (acquired) ([facility]) Is currently taking 25mcg daily Current TSH [...] component here too documented in this encounter [facility] 10-13-2024 Instructions Pamela Moore NP - 10/13/2024 9:40 AM EST We will refer you to counseling services for anxiety Call me after 4 weeks on new thyroid dose documented in this encounter [facility] 08-18-2024 History of Presen t illness Narrative [...] 8 weeks documented in this encounter [facility] 08-18-2024 Instructions Pamela Moore NP - 08/18/2024 9:40 AM EST Check blood pressure twice a day and record it When you come back in 8 weeks bring readings AND BP machines with you so we can verify if they are accurate documented in this encounter [facility] 07-07-2024 History of Presen t illness [...] trax vaginitis, suspect BV,will await culture [facility] [id number] Exp: 09/21/24 [id number] Images from the original note were not [...] nursing note reviewed. Exam conducted with a casting tester present. Constitutional: General: She is not in [...] List Items Addressed This Visit Hypothyroidism (acquired) ([facility]) Relevant Medications levothyroxine (Synthroid, Levoxyl) 50 MCG tablet Encounter for well woman exam with routine gynecological exam - Primary BSE info Diet, exercise Fu as per PAP indication Relevant Orders THIN PREP TIS PAP AND HR HPV DNA Vaginal discharge Health trax vaginitis, suspect BV,[id number] Exp: 09/21/24 [id number] Relevant Orders VAGINITIS (HTRX) Pelvic pain D/t limitation of bimanual exam and pt pain bilat adenexal region Will order pelvic US No family hx of cervical/ovarian/uterine cancer Relevant Orders US pelvis transvaginal documented in this encounter [facility] 06-10-2024 History of Presen t illness Narrative [...] microscopic (clean catch) documented in this encounter [facility] 04-01-2024 History of Presen t illness Narrative [...] 10:56 AM Additional Tests Keratometry (Automated) K1 Sparks K2 Sparks Right 43.75 059 44.75 149 Left 43.75 [...] Normal Normal Refraction Wearing Rx Sphere Cylinder Sparks Right -2.50 +1.00 160 Left -3.50 +1.25 030 Age: 4yrs Type: SVL-distance Manifest Refraction (Auto) Sphere Cylinder Sparks Dist VA Add Near VA Right -2.50 +1.50 156 Left -3.50 +1.25 025 Manifest Refraction #2 Sphere Cylinder Sparks Dist VA Add Near VA Right -2.50 +1.25 160 20/20 +2.50 J1+ Left -3.50 +1.25 020 20/20 +2.50 J1+ Final Rx Sphere Cylinder Sparks Dist VA Add Near VA Right -2.50 [...] in my presence. documented in this encounter [facility] 11-05-2023 History of Presen t illness Narrative Associated Problem(s): Chronic left shoulder pain Will refer to Dr De La Fuente in [place] per pt request Associated Problem(s): Encounter for [...] refer to Dr De La Fuente in [place] per pt request Relevant Orders Ambulatory referral to Orthopaedic Surgery documented in this encounter [facility] Healthcare Evaluation note Diagnosis Gastroesophageal reflux disease, unspecified whether esophagitis present- Primary Age related osteoporosis, unspecified pathological fracture presence (CMS/HCC) Vitamin D deficiency Pre-diabetes Other abnormal glucose Hypothyroidism (acquired) (CMS/HCC) Unspecified hypothyroidism Mixed hyperlipidemia (CMS/HCC) Mixed hyperlipidemia Encounter for screening mammogram for malignant neoplasm of breast BMI 30.0-30.9,adult Chronic left shoulder pain Pain in joint, shoulder region documented in this encounter [facility] HealthcareEvaluation note* Diagnosis Onset Date Resolution Status Primary osteoarthritis of left shoulder acute [facility] Work Phone: Evaluation note* Diagnosis Onset Date Resolution Status Primary osteoarthritis of left shoulder acute Primary osteoarthritis, right shoulder acute Rotator cuff syndrome of right shoulder acute [facility] Work Phone: Evaluation note* Diagnosis Hyperlipidemia, unspecified (CMS/HCC) documented in this encounter [facility] HealthcareEvaluation note* Diagnosis Gastroesophageal reflux disease, unspecified whether esophagitis present- Primary Age related osteoporosis, unspecified pathological fracture presence (CMS/HCC) Vitamin D deficiency Pre-diabetes Other abnormal glucose Hypothyroidism (acquired) (CMS/HCC) Unspecified hypothyroidism Mixed hyperlipidemia (CMS/[facility]) Mixed hyperlipidemia Encounter for screening mammogram for [...] Age related osteoporosis, unspecified pathological fracture presence ([facility]) Hyperlipidemia, unspecified ([facility]) Pre-diabetes Other abnormal glucose Obesity (BMI 30-39.9) Hypothyroidism (acquired) ([facility]) Unspecified hypothyroidism Chronic osteoarthritis Osteoarthrosis, unspecified whether generalized or localized, unspecified site Elevated blood pressure reading Elevated blood pressure reading without diagnosis of hypertension Primary hypertension ([facility])- Primary Unspecified essential hypertension Obesity (BMI 30-39.9) LORI (generalized anxiety disorder) ([facility]) Generalized anxiety disorder Primary [place] Primary Unspecified essential hypertension Gastroesophageal reflux disease, unspecified whether esophagitis present Vitamin D deficiency Pre-diabetes Other abnormal glucose Hypothyroidism (acquired) ([facility]) Unspecified hypothyroidism Mixed hyperlipidemia ([facility]) Mixed hyperlipidemia Encounter for well woman exam with routine gynecological exam- Primary Hypothyroidism (acquired) ([facility]) Unspecified hypothyroidism Vaginal discharge Leukorrhea, not specified as infective Pelvic pain documented in this encounter [facility] HealthcareEvaluation note* Diagnosis Gastroesophageal reflux disease, unspecified whether esophagitis present- Primary Age related osteoporosis, unspecified pathological fracture presence ([facility]) Vitamin D deficiency Pre-diabetes Other abnormal glucose Hypothyroidism (acquired) ([facility]) Unspecified hypothyroidism Mixed hyperlipidemia ([facility]) Mixed hyperlipidemia Encounter for screening mammogram for [...] Age related osteoporosis, unspecified pathological fracture presence ([facility]) Hyperlipidemia, unspecified ([facility]) Pre-diabetes Other abnormal glucose Obesity (BMI 30-39.9) Hypothyroidism (acquired) ([facility]) Unspecified hypothyroidism Chronic osteoarthritis Osteoarthrosis, unspecified whether generalized or localized, unspecified site Elevated blood pressure reading Elevated blood pressure reading without diagnosis of hypertension Primary hypertension ([facility])- Primary Unspecified essential hypertension Obesity (BMI 30-39.9) LORI (generalized anxiety disorder) ([facility]) Generalized anxiety disorder Primary hypertension [place] Unspecified essential hypertension Gastroesophageal reflux disease, unspecified whether esophagitis present Vitamin D deficiency Pre-diabetes Other abnormal glucose Hypothyroidism (acquired) ([facility]) Unspecified hypothyroidism Mixed hyperlipidemia [place] Mixed hyperlipidemia Encounter for well woman exam with routine gynecological exam- Primary Hypothyroidism (acquired) ([facility]) Unspecified hypothyroidism Vaginal discharge Leukorrhea, not specified as infective Pelvic pain Hypothyroidism (acquired) ([facility])- Primary Unspecified hypothyroidism documented in this encounter [facility] HealthcareEvaluation note* Diagnosis Gastroesophageal reflux disease, unspecified whether esophagitis present- Primary Age related osteoporosis, unspecified pathological fracture presence ([facility]) Vitamin D deficiency Pre-diabetes Other abnormal glucose Hypothyroidism (acquired) ([facility]) Unspecified hypothyroidism Mixed hyperlipidemia [place] Mixed hyperlipidemia Encounter for screening mammogram for [...] Age related osteoporosis, unspecified pathological fracture presence ([facility]) Hyperlipidemia, unspecified ([facility]) Pre-diabetes Other abnormal glucose Obesity (BMI 30-39.9) Hypothyroidism (acquired) ([facility]) Unspecified hypothyroidism Chronic osteoarthritis Osteoarthrosis, unspecified whether generalized or localized, unspecified site Elevated blood pressure reading Elevated blood pressure reading without diagnosis of hypertension Primary hypertension ([facility])- Primary Unspecified essential hypertension Obesity (BMI 30-39.9) LORI (generalized anxiety disorder) ([facility]) Generalized anxiety disorder Primary hypertension [place] Primary Unspecified essential hypertension Gastroesophageal reflux disease, unspecified whether esophagitis present Vitamin D deficiency Pre-diabetes Other abnormal glucose Hypothyroidism (acquired) [place] Unspecified hypothyroidism Mixed hyperlipidemia [place] Mixed hyperlipidemia Encounter for well woman exam with routine gynecological exam- Primary Hypothyroidism (acquired) ([facility]) Unspecified hypothyroidism Vaginal discharge Leukorrhea, not specified as infective Pelvic pain Primary hypertension ([facility])- Primary Unspecified essential hypertension Pelvic pain Gastroesophageal reflux disease, unspecified whether esophagitis present Obesity (BMI 30-39.9) Vitamin D deficiency Class 1 obesity due to excess calories without serious comorbidity with body mass index (BMI) of 30.0 to 30.9 in adult documented in this encounter [facility] HealthcareEvaluation note* Diagnosis Gastroesophageal reflux disease, unspecified whether esophagitis present- Primary Age related osteoporosis, unspecified pathological fracture presence ([facility]) Vitamin D deficiency Pre-diabetes Other abnormal glucose Hypothyroidism (acquired) ([facility]) Unspecified hypothyroidism Mixed hyperlipidemia ([facility]) Mixed hyperlipidemia Encounter for screening mammogram for [...] Age related osteoporosis, unspecified pathological fracture presence ([facility]) Hyperlipidemia, unspecified ([facility]) Pre-diabetes Other abnormal glucose Obesity (BMI 30-39.9) Hypothyroidism (acquired) ([facility]) Unspecified hypothyroidism Chronic osteoarthritis Osteoarthrosis, unspecified whether generalized or localized, unspecified site Elevated blood pressure reading Elevated blood pressure reading without diagnosis of hypertension Primary hypertension ([facility])- Primary Unspecified essential hypertension Obesity (BMI 30-39.9) LORI (generalized anxiety disorder) ([facility]) Generalized anxiety disorder Primary hypertension ([facility])- Primary Unspecified essential hypertension Gastroesophageal reflux disease, unspecified whether esophagitis present Vitamin D deficiency Pre-diabetes Other abnormal glucose Hypothyroidism (acquired) ([facility]) Unspecified hypothyroidism Mixed hyperlipidemia ([facility]) Mixed hyperlipidemia Encounter for well woman exam with routine gynecological exam- Primary Hypothyroidism (acquired) ([facility]) Unspecified hypothyroidism Vaginal discharge Leukorrhea, not specified as infective Pelvic pain Primary hypertension ([facility])- Primary Unspecified essential hypertension Pelvic pain Gastroesophageal reflux disease, unspecified whether esophagitis present Obesity (BMI 30-39.9) Vitamin D deficiency Class 1 obesity due to excess calories without serious comorbidity with body mass index (BMI) of 30.0 to 30.9 in adult Hyperglycemia- Primary Other abnormal glucose documented in this encounter [facility]Evaluation note* Diagnosis Gastroesophageal reflux disease, unspecified whether esophagitis present- Primary Age related osteoporosis, unspecified pathological fracture presence ([facility]/HCC) Vitamin D deficiency Pre-diabetes Other abnormal glucose Hypothyroidism (acquired) ([facility]) Unspecified hypothyroidism Mixed hyperlipidemia ([facility]) Mixed hyperlipidemia Encounter for screening mammogram for [...] Age related osteoporosis, unspecified pathological fracture presence ([facility]/HCC) Hyperlipidemia, unspecified ([facility]) Pre-diabetes Other abnormal glucose Obesity (BMI 30-39.9) Hypothyroidism (acquired) ([facility]) Unspecified hypothyroidism Chronic osteoarthritis Osteoarthrosis, unspecified whether generalized or localized, unspecified site Elevated blood pressure reading Elevated blood pressure reading without diagnosis of hypertension Primary hypertension ([facility])- Primary Unspecified essential hypertension Obesity (BMI 30-39.9) LORI (generalized anxiety disorder) ([facility]) Generalized anxiety disorder Primary hypertension ([facility])- Primary Unspecified essential hypertension Gastroesophageal reflux disease, unspecified whether esophagitis present Vitamin D deficiency Pre-diabetes Other abnormal glucose Hypothyroidism (acquired) ([facility]) Unspecified hypothyroidism Mixed hyperlipidemia ([facility]) Mixed hyperlipidemia Encounter for well woman exam with routine gynecological exam- Primary Hypothyroidism (acquired) ([facility]) Unspecified hypothyroidism Vaginal discharge Leukorrhea, not specified as infective Pelvic pain Primary hypertension ([facility])- Primary Unspecified essential hypertension Pelvic pain Gastroesophageal reflux disease, unspecified whether esophagitis present Obesity (BMI 30-39.9) Vitamin D deficiency Class 1 obesity due to excess calories without serious comorbidity with body mass index (BMI) of 30.0 to 30.9 in adult Allergic rhinitis, unspecified seasonality, unspecified trigger- Primary Acute bronchitis, unspecified Age related osteoporosis, unspecified pathological fracture presence ([facility]/HCC) documented in this encounter [facility] HealthcareEvaluation note* Diagnosis Age related osteoporosis, unspecified pathological fracture presence ([facility]/HCC) documented in this encounter [facility]* Diagnosis Primary hypertension ([facility])- Primary Unspecified essential hypertension Gastroesophageal reflux disease, unspecified whether esophagitis present Vitamin D deficiency Pre-diabetes Other abnormal glucose Hypothyroidism (acquired) ([facility]) Unspecified hypothyroidism Mixed hyperlipidemia ([facility]) Mixed hyperlipidemia documented in this encounter [facility] HealthcareEvaluation note* Diagnosis Gastroesophageal reflux disease, unspecified whether esophagitis present- Primary Age related osteoporosis, unspecified pathological fracture presence ([facility]) Vitamin D deficiency Pre-diabetes Other abnormal glucose Hypothyroidism (acquired) ([facility]) Unspecified hypothyroidism Mixed hyperlipidemia ([facility]) Mixed hyperlipidemia Encounter for screening mammogram for [...] Age related osteoporosis, unspecified pathological fracture presence ([facility]) Hyperlipidemia, unspecified ([facility]) Pre-diabetes Other abnormal glucose Obesity (BMI 30-39.9) Hypothyroidism (acquired) ([facility]) Unspecified hypothyroidism Chronic osteoarthritis Osteoarthrosis, unspecified whether generalized or localized, unspecified site Elevated blood pressure reading Elevated blood pressure reading without diagnosis of hypertension Primary hypertension ([facility])- Primary Unspecified essential hypertension Obesity (BMI 30-39.9) LORI (generalized anxiety disorder) ([facility]) Generalized anxiety disorder Primary hypertension ([facility])- Primary Unspecified essential hypertension Gastroesophageal reflux disease, unspecified whether esophagitis present Vitamin D deficiency Pre-diabetes Other abnormal glucose Hypothyroidism (acquired) ([facility]) Unspecified hypothyroidism Mixed hyperlipidemia ([facility]) Mixed hyperlipidemia Encounter for well woman exam with routine gynecological exam- Primary Hypothyroidism (acquired) ([facility]) Unspecified hypothyroidism Vaginal discharge Leukorrhea, not specified as infective Pelvic pain Primary hypertension ([facility])- Primary Unspecified essential hypertension Pelvic pain Gastroesophageal reflux disease, unspecified whether esophagitis present Obesity (BMI 30-39.9) Vitamin D deficiency Class 1 obesity due to excess calories without serious comorbidity with body mass index (BMI) of 30.0 to 30.9 in adult Hypothyroidism (acquired) ([facility])- Primary Unspecified hypothyroidism documented in this encounter [facility] HealthcareEvaluation note* Diagnosis Gastroesophageal reflux disease, unspecified whether esophagitis present- Primary Age related osteoporosis, unspecified pathological fracture presence ([facility]) Vitamin D deficiency Pre-diabetes Other abnormal glucose Hypothyroidism (acquired) ([facility]) Unspecified hypothyroidism Mixed hyperlipidemia ([facility]) Mixed hyperlipidemia Encounter for screening mammogram for [...] Age related osteoporosis, unspecified pathological fracture presence ([facility]) Hyperlipidemia, unspecified ([facility]) Pre-diabetes Other abnormal glucose Obesity (BMI 30-39.9) Hypothyroidism (acquired) ([facility]) Unspecified hypothyroidism Chronic osteoarthritis Osteoarthrosis, unspecified whether generalized or localized, unspecified site Elevated blood pressure reading Elevated blood pressure reading without diagnosis of hypertension Primary hypertension ([facility])- Primary Unspecified essential hypertension Obesity (BMI 30-39.9) LORI (generalized anxiety disorder) ([facility]) Generalized anxiety disorder Primary hypertension ([facility])- Primary Unspecified essential hypertension Gastroesophageal reflux disease, unspecified whether esophagitis present Vitamin D deficiency Pre-diabetes Other abnormal glucose Hypothyroidism (acquired) ([facility]) Unspecified hypothyroidism Mixed hyperlipidemia ([facility]) Mixed hyperlipidemia Encounter for well woman exam with routine gynecological exam- Primary Hypothyroidism (acquired) ([facility]) Unspecified hypothyroidism Vaginal discharge Leukorrhea, not specified as infective Pelvic pain Primary hypertension ([facility])- Primary Unspecified essential hypertension Pelvic pain Gastroesophageal reflux disease, unspecified whether esophagitis present Obesity (BMI 30-39.9) Vitamin D deficiency Class 1 obesity due to excess calories without serious comorbidity with body mass index (BMI) of 30.0 to 30.9 in adult Primary hypertension ([facility])- Primary Unspecified essential hypertension Class 1 obesity due to excess calories without serious comorbidity with body mass index (BMI) of 30.0 to 30.9 in adult Hypothyroidism (acquired) ([facility]) Unspecified hypothyroidism LORI (generalized anxiety disorder) ([facility]) Generalized anxiety disorder documented in this encounter [facility] HealthcareEvaluation note* Diagnosis Presbyopia- Primary Myopia of both eyes Regular astigmatism of both eyes Age-related nuclear cataract of both eyes Dry eye syndrome of bilateral lacrimal glands [facility]* Diagnosis Gastroesophageal reflux disease, unspecified whether esophagitis present- Primary Age related osteoporosis, unspecified pathological fracture presence ([facility]) Vitamin D deficiency Pre-diabetes Other abnormal glucose Hypothyroidism (acquired) ([facility]) Unspecified hypothyroidism Mixed hyperlipidemia ([facility]) Mixed hyperlipidemia Encounter for screening mammogram for [...] Age related osteoporosis, unspecified pathological fracture presence ([facility]) Hyperlipidemia, unspecified ([facility]) Pre-diabetes Other abnormal glucose Obesity (BMI 30-39.9) Hypothyroidism (acquired) ([facility]) Unspecified hypothyroidism Chronic osteoarthritis Osteoarthrosis, unspecified whether generalized or localized, unspecified site Elevated blood pressure reading Elevated blood pressure reading without diagnosis of hypertension Primary hypertension ([facility])- Primary Unspecified essential hypertension Obesity (BMI 30-39.9) LORI (generalized anxiety disorder) ([facility]) Generalized anxiety disorder Primary hypertension ([facility])- Primary Unspecified essential hypertension Gastroesophageal reflux disease, unspecified whether esophagitis present Vitamin D deficiency Pre-diabetes Other abnormal glucose Hypothyroidism (acquired) ([facility]) Unspecified hypothyroidism Mixed hyperlipidemia ([facility]) Mixed hyperlipidemia Encounter for well woman exam with routine gynecological exam- Primary Hypothyroidism (acquired) ([facility]) Unspecified hypothyroidism Vaginal discharge Leukorrhea, not specified as infective Pelvic pain Primary hypertension ([facility])- Primary Unspecified essential hypertension Pelvic pain Gastroesophageal reflux disease, unspecified whether esophagitis present Obesity (BMI 30-39.9) Vitamin D deficiency Class 1 obesity due to excess calories without serious comorbidity with body mass index (BMI) of 30.0 to 30.9 in adult LORI (generalized anxiety disorder) ([facility])- Primary Generalized anxiety disorder Primary hypertension ([facility]) Unspecified essential hypertension Class 1 obesity due to excess calories without serious comorbidity with body mass index (BMI) of 30.0 to 30.9 in adult Hypothyroidism (acquired) ([facility]) Unspecified hypothyroidism Age related osteoporosis, unspecified pathological fracture presence ([facility]) Hyperlipidemia, unspecified ([facility]) documented in this encounter [facility] HealthcareEvaluation note* Diagnosis Gastroesophageal reflux disease, unspecified whether esophagitis present- Primary Age related osteoporosis, unspecified pathological fracture presence ([facility]) Vitamin D deficiency Pre-diabetes Other abnormal glucose Hypothyroidism (acquired) ([facility]) Unspecified hypothyroidism Mixed hyperlipidemia ([facility]) Mixed hyperlipidemia Encounter for screening mammogram for [...] Age related osteoporosis, unspecified pathological fracture presence ([facility]) Hyperlipidemia, unspecified ([facility]) Pre-diabetes Other abnormal glucose Obesity (BMI 30-39.9) Hypothyroidism (acquired) ([facility]) Unspecified hypothyroidism Chronic osteoarthritis Osteoarthrosis, unspecified whether generalized or localized, unspecified site Elevated blood pressure reading Elevated blood pressure reading without diagnosis of hypertension Primary hypertension ([facility])- Primary Unspecified essential hypertension Obesity (BMI 30-39.9) LORI (generalized anxiety disorder) ([facility]) Generalized anxiety disorder Primary hypertension ([facility])- Primary Unspecified essential hypertension Gastroesophageal reflux disease, unspecified whether esophagitis present Vitamin D deficiency Pre-diabetes Other abnormal glucose Hypothyroidism (acquired) ([facility]) Unspecified hypothyroidism Mixed hyperlipidemia ([facility]) Mixed hyperlipidemia Encounter for well woman exam with routine gynecological exam- Primary Hypothyroidism (acquired) ([facility]) Unspecified hypothyroidism Vaginal discharge Leukorrhea, not specified as infective Pelvic pain Primary hypertension ([facility])- Primary Unspecified essential hypertension Pelvic pain Gastroesophageal reflux disease, unspecified whether esophagitis present Obesity (BMI 30-39.9) Vitamin D deficiency Class 1 obesity due to excess calories without serious comorbidity with body mass index (BMI) of 30.0 to 30.9 in adult LORI (generalized anxiety disorder) ([facility])- Primary Generalized anxiety disorder Primary hypertension ([facility]) Unspecified essential hypertension Class 1 obesity due to excess calories without serious comorbidity with body mass index (BMI) of 30.0 to 30.9 in adult Hypothyroidism (acquired) ([facility]) Unspecified hypothyroidism Primary hypertension ([facility])- Primary Unspecified essential hypertension Hypothyroidism (acquired) ([facility]) Unspecified hypothyroidism Allergic rhinitis, unspecified seasonality, unspecified trigger documented in this encounter [facility] HealthcareEvaluation note* Diagnosis Gastroesophageal reflux disease, unspecified whether esophagitis present- Primary Age related osteoporosis, unspecified pathological fracture presence ([facility]) Vitamin D deficiency Pre-diabetes Other abnormal glucose Hypothyroidism (acquired) ([facility]) Unspecified hypothyroidism Mixed hyperlipidemia ([facility]) Mixed hyperlipidemia Encounter for screening mammogram for [...] Age related osteoporosis, unspecified pathological fracture presence ([facility]) Hyperlipidemia, unspecified ([facility]) Pre-diabetes Other abnormal glucose Obesity (BMI 30-39.9) Hypothyroidism (acquired) ([facility]) Unspecified hypothyroidism Chronic osteoarthritis Osteoarthrosis, unspecified whether generalized or localized, unspecified site Elevated blood pressure reading Elevated blood pressure reading without diagnosis of hypertension Primary hypertension ([facility])- Primary Unspecified essential hypertension Obesity (BMI 30-39.9) LORI (generalized anxiety disorder) ([facility]) Generalized anxiety disorder Primary hypertension ([facility])- Primary Unspecified essential hypertension Gastroesophageal reflux disease, unspecified whether esophagitis present Vitamin D deficiency Pre-diabetes Other abnormal glucose Hypothyroidism (acquired) ([facility]) Unspecified hypothyroidism Mixed hyperlipidemia ([facility]) Mixed hyperlipidemia Encounter for well woman exam with routine gynecological exam- Primary Hypothyroidism (acquired) ([facility]) Unspecified hypothyroidism Vaginal discharge Leukorrhea, not specified as infective Pelvic pain Primary hypertension ([facility])- Primary Unspecified essential hypertension Pelvic pain Gastroesophageal reflux disease, unspecified whether esophagitis present Obesity (BMI 30-39.9) Vitamin D deficiency Class 1 obesity due to excess calories without serious comorbidity with body mass index (BMI) of 30.0 to 30.9 in adult LORI (generalized anxiety disorder) ([facility])- Primary Generalized anxiety disorder Primary hypertension ([facility]) Unspecified essential hypertension Class 1 obesity due to excess calories without serious comorbidity with body mass index (BMI) of 30.0 to 30.9 in adult Hypothyroidism (acquired) ([facility]specified hypothyroidism [place] Unspecified essential hypertension Hypothyroidism (acquired) [place] Unspecified hypothyroidism Allergic rhinitis, unspecified seasonality, unspecified trigger Hypothyroidism (acquired) [place] Unspecified hypothyroidism documented in this encounter [facility] HealthcareEvaluation note* Diagnosis Age-related nuclear cataract of both eyes- Primary Posterior vitreous detachment, bilateral Infection of eyelash follicle of right eye documented in [facility] encounter [facility]* Diagnosis Gastroesophageal reflux disease, [...] Dermatophytosis of nail documented in this encounter [facility] HealthcareEvaluation note* Diagnosis Gastroesophageal reflux disease, [...] in stool contents documented in this encounter [facility] HealthcareEvaluation note* Diagnosis Gastroesophageal reflux disease, [...] Generalized anxiety disorder Onychomycosis Dermatophytosis of nail Tinea pedis of both feet- Primary Onychomycosis Dermatophytosis of nail Pain due to onychomycosis of toenails of both feet Neoplasm of uncertain behavior of skin Verruca plantaris Plantar wart Foot pain, right Pain in soft tissues of limb documented in this encounter [facility]* [...] Generalized anxiety disorder Onychomycosis Dermatophytosis of nail Elevated serum protein level- Primary Hypercalcemia Thrombocytosis Essential thrombocythemia documented in this encounter [facility]* [...] Generalized anxiety disorder Onychomycosis Dermatophytosis of nail Hypothyroidism (acquired) Unspecified hypothyroidism documented in this encounter [facility] HealthcareInstructions* Attachments The following attachments cannot be sent through Care Everywhere. * Dry eye (Lithuanian) * Cataracts (Lithuanian) * Presbyopia and refractive errors ([place]uanian) [facility] Attachments The following attachments cannot be sent through Care Everywhere. * Cataracts (Lithuanian) * Floaters in the Eye (Lithuanian) documented in [facility] HospitalReason for referral (narrative)* Consultation (Routine) - Pending Review Specialty Diagnoses / Procedures Referred By Lisa t Referred To Contact Orthopaedic Surgery Diagnoses Chronic left shoulder pain Pamela Moore NP [address] [place] [address] Ziggy De La Fuente MD [address] [place] [id number] Referral ID Status Reason Start Date Expiration Date Visits Requested Visits Authorized [id number] Pending Review Specialty Services Required 11/05/2023 05/03/2024 1 1 [facility] Healthcare Summary Purpose Family History Relationship [...] - Pain in ri ght shoulder OP PHYSICIAN GENERAL PRACTICE RT SHOULDER PAIN NX Reason for Visit Primary osteoarthrit is of left shoulder Primary osteoarthritis, right shoulder Rotator cuff syndrome of right shoulder Additional Source Comments INFORMATION SOURCE (unrecogn ized section and content) DATE CREATED AUTHOR 01/06/2023 [facility] DATE CREATED AUTHOR 'S ORGANIZ ATION 02/28/2023 [facility] DATE CREATED AUTHOR AUTHOR'S ORGANIZ ATION 01/22/2024 [facility] DATE CREATED AUTHOR AUTHOR'S ORGANIZ ATION 05/01/2024 [facility] DATE CREATED AUTHOR AUTHOR'S ORGANIZ ATION 04/11/2025 [facility] DATE CREATED AUTHOR AUTHOR'S ORGANIZ ATION 05/01/2025 [facility] Care Teams (unrecognized sec tion and [...] Provider Active St art: April 29, 2024 Director Workers Compensation Relationship Specialty Start Date End Date Jorge Goncalves MD [address] [place] [phone] PCP - General Family Medicine 11/05/23 Director Workers Compensation Relationship Specialty Start Date End Date Jorge Goncalves MD [address] [place] [phone] PCP - General Family Medicine 11/05/23 Team [...] Provider Active St art: December 11, 2023 Director Workers Compensation Relationship Specialty Start Date End Date Jorge Goncalves MD [address] [place] [address] PCP - General Family Medicine 11/05/23 Pamela Moore NP [address] [place] [address] PCP Opal Pham MA 04/22/24 Director Workers Compensation Relationship Specialty Start Date End Date Jorge Goncalves MD [address] [place] [address] PCP - General Family Medicine 11/05/23 Pamela Moore NP [address] [place] [address] PCP Opal Pham MA 04/22/24 Director Workers Compensation Relationship Specialty Start Date End Date Jorge Goncalves MD [address] [place] [address] PCP - General Family Medicine 11/05/23 Pamela Moore NP [address] [place] [address] PCP Opal Pham MA 04/22/24 Director Workers Compensation Relationship Specialty Start Date End Date Pamela Moore NP [address] [place] [address] PCP Opal Pham MA 04/22/24 Unallocated, Nehemias Avina MD [address] [place] [address] PCP - General Family Medicine 07/07/24 Director Workers Compensation Relationship Specialty Start Date End Date Pamela Moore NP [address] [place] [address] PCP - Ankit MURRY 04/22/24 Unallocated, Noms MD Kailyn [address] [place] [address] PCP - General Family Medicine 07/07/24 Director Workers Compensation Relationship Specialty Start Date End Date Pamela Moore NP [address] [place] [phone] PCP - Ankit MURRY 04/22/24 Jorge Goncalves MD [address] [place] [phone] PCP - General Family Medicine 07/22/24 Director Workers Compensation Relationship Specialty Start Date End Date Pamela Moore NP [address] [place] [phone] PCP - Ankit MURRY 04/22/24 Jorge Goncalves MD [address] [place] [address] PCP - General Family Medicine 07/22/24 Director Workers Compensation Relationship Specialty Start Date End Date Pamela Moore NP [address] [place] [address] PCP - Ankit MURRY 04/22/24 Jorge Goncalves MD [address] [place] [phone] PCP - General Family Medicine 07/22/24 Director Workers Compensation Relationship Specialty Start Date End Date Pamela Moore NP [address] [place] [phone] PCP - Ankit MURRY 04/22/24 Jorge Goncalves MD [address] [place] [address] PCP - General Family Medicine 07/22/24 Director Workers Compensation Relationship Specialty Start Date End Date Pamela Moore NP [address] [place] [phone] PCP - Ankit MURRY 04/22/24 Jorge Goncalves MD [address] [place] [address] PCP - General Family Medicine 07/22/24 Director Workers Compensation Relationship Specialty Start Date End Date Pamela Moore NP [address] [place] [phone] PCP - Ankit MURRY 04/22/24 Jorge Goncalves MD [address] [place] [address] PCP - General Family Medicine 07/22/24 Director Workers Compensation Relationship Specialty Start Date End Date Jorge Goncalves MD [address] [place] [phone] PCP - General Family Medicine 11/05/23 Pamela Moore NP [address] [place] [phone] PCP Opal Pham MA 04/22/24 Director Workers Compensation Relationship Specialty Start Date End Date Jorge Goncalves MD [address] [place] [phone] PCP - General Family Medicine 11/05/23 Pamela Moore NP [address] [place] [address] PCP - Ankit MURRY 04/22/24 Director Workers Compensation Relationship Specialty Start Date End Date Jorge Goncalves MD [address] [place] [address] PCP - General Family Medicine 11/05/23 Pamela Moore NP [address] [place] [address] PCP Opal Pham MA 04/22/24 Director Workers Compensation Relationship Specialty Start Date End Date Pamela Moore NP [address] [place] [phone] PCP Opal Pham MA 04/22/24 Jorge Goncalves MD [address] [place] [address] PCP - General Family Medicine 07/22/24 Director Workers Compensation Relationship Specialty Start Date End Date Pamela Moore NP [address] [place] [address] PCP - Ankit MURRY 04/22/24 Jorge Goncalves MD [address] [place] [address] PCP - General Family Medicine 07/22/24 Director Workers Compensation Relationship Specialty Start Date End Date Pamela Moore NP [address] [place] [address] PCP - Ankit MURRY 04/22/24 Jorge Goncalves MD [address] [place] [address] PCP - General Family Medicine 07/22/24 Director Workers Compensation Relationship Specialty Start Date End Date Pamela Moore, [employer] A[employer]LY[employer] [address] [place] [address] PCP - General Nurse Practitioner 05/10/21 Director Workers Compensation Relationship Specialty Start Date End Date Pamela Moore NP [address] [place] [address] PCP - Ankit MURRY 04/22/24 Jorge Goncalves MD [address] [place] [address] PCP - General Family Medicine 07/22/24 Director Workers Compensation Relationship Specialty Start Date End Date Pamela Moore NP [address] [place] [address] PCP - Ankit MURRY 04/22/24 Jorge Goncalves MD [address] [place] [address] PCP - General Family Medicine 07/22/24 Director Workers Compensation Relationship Specialty Start Date End Date Pamela Moore NP [address] [place] [address] PCP - Ankit MURRY 04/22/24 Jorge Goncalves MD [address] [place] [address] PCP - General Family Medicine 07/22/24 Director Workers Compensation Relationship Specialty Start Date End Date Pamela Moore NP [address] [place] [address] PCP - Ankit MURRY 04/22/24 Jorge Goncalves MD [address] [place] [address] PCP - General Family Medicine 07/22/24 Director Workers Compensation Relationship Specialty Start Date End Date Jorge Goncalves MD [address] [place] [address] PCP - General Family Medicine 07/22/24 Director Workers Compensation Relationship Specialty Start Date End Date Pamela Moore, [employer] A[employer]LYST PCP - General Nurse Practitioner 05/10/21 Director Workers Compensation Relationship Specialty Start Date End Date Pamela Moore NP [address] [place] [address] PCP - Ankit MURRY 04/22/24 Jorge Goncalves MD [address] [place] [address] PCP - General Family Medicine 07/22/24 Director Workers Compensation Relationship Specialty Start Date End Date Pamela oMore NP [address] [place] [address] PCP - Ankit MURRY 04/22/24 Jorge Goncalves MD [address] [place] [address] PCP - General Family Medicine 07/22/24 Director Workers Compensation Relationship Specialty Start Date End Date Pamela Moore NP [address] [place] [address] PCP - Ankit MURRY 04/22/24 Jorge Goncalves MD [address] [place] [address] PCP - General Family Medicine 07/22/24 Director Workers Compensation Relationship Specialty Start Date End Date Pamela Moore NP [address] [place] [address] PCP - Ankit MURRY 04/22/24 Jorge Goncalves MD [address] [place] [address] PCP - General Family Medicine 07/22/24 Director Workers Compensation Relationship Specialty Start Date End Date Pamela Moore NP [address] [place] [address] PCP - Ankit MURRY 04/22/24 Jorge Goncalves MD [address] [place] [address] PCP - General Family Medicine 07/22/24 Director Workers Compensation Relationship Specialty Start Date End Date Pamela Moore NP [address] [place] [address] PCP - Ankit MURRY 04/22/24 Jorge Goncalves MD [address] [place] [address] PCP - General Family Medicine 07/22/24 Director Workers Compensation Relationship Specialty Start Date End Date Pamela Moore NP [address] [place] [address] PCP - Ankit MURRY 04/22/24 Jorge Goncalves MD [address] [place] [address] PCP - General Family Medicine 07/22/24 Director Workers Compensation Relationship Specialty Start Date End Date Pamela Moore NP [address] [place] [address] PCP - Ankit MURRY 04/22/24 Jorge Goncalves MD [address] [place] [address] PCP - General Family Medicine 07/22/24 Goals [...] Reason Comments Medicare Annual Wellness Visit Initial Reason Comments Toenail Problem Specialty Diagnoses / Procedures Referred By Contac t Referred To Contact Podiatry Diagnoses Onychomycosis Procedures LA OFFICE/OUTPATIENT NEW HIGH MDM 60 MINUTES Pamela Moore, MARIKA [address] [place] [address] Phone: tel: fax: Chaz Todd DPM [address] [place] [address] Phone: tel: fax: Referral ID Status Reason Start Date Expiration Date V isits Requested Visits Authorized [id number] Closed Specialty Services Required 04/13/2025 10/10/2025 1 1 FOR RECORDS PERTAINING TO PATIENTS WHO ARE [...] BE BASED ON THE PRIMARY CLINICAL RECORDS. [employer] provides no warranty or guarantee of the accuracy or completeness of information in this document.
[2025-05-16 11:41] LABS: Hematocrit 36.9 % (36.0-48.0); Hemoglobin 12.4 g/dL (12.0-16.0); Immature Granulocytes Pct Auto 0.2 % (0.0-0.5); Lymphocytes Absolute Auto 2.6 10^3/uL (1.2-3.8); Mean Corpuscular HGB Conc 33.6 g/dL (29.9-35.2); Mean Corpuscular Hemoglobin 28.1 pg (26.7-34.0); Mean Corpuscular Volume 83.5 fL (81.0-99.0); Platelet Count 447 10^3/uL (150-450); Red Blood Count 4.42 10^6/uL (4.20-5.40); White Blood Count 6.6 10^3/uL (4.0-11.0)
[2025-05-16 12:16] LABS: Alanine Aminotransferase 53 U/L (14-59); Albumin Globulin Ratio 1.0; Albumin Level 4.0 g/dL (3.4-5.0); Alkaline Phosphatase 72 U/L (46-116); Anion Gap 13.6; Aspartate Amino Transferase 28 U/L (15-37); Blood Urea Nitrogen 8.0 mg/dL (7.0-18.0); Calcium 9.8 mg/dL (8.5-10.1); Carbon Dioxide 27.7 mmol/L (21.0-32.0); Chloride 96 mmol/L (98-107); Estimated GFR (African America >60 (>=60 mL/min/1.73m^2); Estimated GFR (Non-African Ame >60 (>=60 mL/min/1.73m^2); Globulin 4.2 g/dL; Glucose 103 mg/dL (74-106); Potassium 4.3 mmol/L (3.5-5.1); Sodium 133 mmol/L (136-145); Total Protein 8.2 g/dL (6.4-8.2)
[2025-05-16 12:53] LABS: Immature Granulocytes Abs Auto 0.01 10^3/uL (0.00-0.03)
[2025-05-17 15:08] LABS: Albumin 3.7 g/dL (2.9-4.4); Alpha-1-Globulin 0.3 g/dL (0.0-0.4); Alpha-2-Globulin 1.0 g/dL (0.4-1.0); Gamma Globulin 1.3 g/dL (0.4-1.8)
[2025-05-18 14:08] LABS: Albumin, U 28.2 % (.); Alpha-1-Globulin, U 8.3 % (.); Alpha-2-Globulin, U 23.8 % (.); Beta Globulin, U 24.1 % (.); Gamma Globulin, U 15.6 % (.)
== END 2025-05-16 11:07 | disposition home or self-care (01) ==
LOC: LAB 11:07
PROVIDERS: PCP Nurse Practitioner; Visit Provider Nurse Practitioner
DX: R77.9 Abnormality of plasma protein, unspecified (principal); E83.52 Hypercalcemia; D75.839 Thrombocytosis, unspecified
CPT/HCPCS: 36415; 80053; 82306; 83970; 84155; 84165; 85025; 85652; 86140